=== PATIENT | female | born 1950 | race American Indian/Alaskan Native ===

== ENCOUNTER 2018-06-09 00:08 | Emergency (ER) | payer MEDICARE, BC, MEDICAID ==
[2018-06-09 00:31] VITALS: TEMP 98.1
--- NOTE | 2018-06-09 01:15 | ED PDOC ---
Arrival/HPI - General Chief Complaint: Back Pain Time Seen by Provider: 06/09/18 00:35 Historian: Patient - History of Present Illness Narrative History of Present Illness (Text): 06/09/18 00:45 67 year old female, whose past medical history includes CABG, 5 stents, ESRD on HD (Tuesday, , Tuesday), hypertension, hypothyroidism, diabetes, presents to the emergency department complaining of acute exacerbation of chronic back pain that began 1 year ago when she fell in her kitchen. Since then, she has intermittent episodes of right-sided/mid back pain. Patient reports the pain suddenly began 6 days ago and missed her last 3 dialysis treatments due to the severity of the pain. Patient has been using the fentanyl patches with relief but they have been giving her blurry vision and nausea. Patient went to [facility] twice for similar symptoms which they gave her pain medication in the ER, but discharged her with none. She had lab work done yesterday that shows her creatinine to be 8.6. Patient complaining of back pain and excessive thirst, but denies any fever, chills, chest pain, shortness of breath, vomiting, diarrhea, urinary symptoms, neck pain, headache, dizziness, or any other complaints. Time/Duration: Other (6 days) Symptom Course: Worsening Activities at Onset: Light Context: Home Past Medical History - Provider Review Nursing Documentation Reviewed: Yes - Infectious Disease Hx of Infectious Diseases: None - Cardiac Hx Cardiac Disorders: Yes Hx Hypertension: Yes Hx Pacemaker: Yes (x2) Other/Comment: triple Bypass. 5 stents - Pulmonary Hx Respiratory Disorders: No - Neurological Hx Neurological Disorder: No - HEENT Hx HEENT Disorder: No - Renal Hx Renal Disorder: Yes Hx Dialysis: Yes (T/TR/S) Type of Dialysis Access: rt arm shunt Date of Last Dialysis Treatment: 06/03/18 Hx Renal Failure: Yes (makes a little urine) - Endocrine/Metabolic Hx Endocrine Disorders: Yes Hx Diabetes Mellitus Type 2: Yes - Hematological/Oncological Hx Blood Disorders: No - Integumentary Hx Dermatological Disorder: No - Musculoskeletal/Rheumatological Hx Musculoskeletal Disorders: Yes Hx Back Pain: Yes - Gastrointestinal Hx Gastrointestinal Disorders: No - Genitourinary/Gynecological Hx Genitourinary Disorders: No - Psychiatric Hx Psychophysiologic Disorder: No Hx Substance Use: No - Surgical History Hx Coronary Artery Bypass Graft: Yes - Anesthesia Hx Anesthesia: Yes Hx Anesthesia Reactions: No Hx Malignant Hyperthermia: No Family/Social History - Physician Review Nursing Documentation Reviewed: Yes Family/Social History: No Known Family HX Smoking Status: Former Smoker Hx Alcohol Use: No Hx Substance Use: No Allergies/Home Meds Allergies/Adverse Reactions: Allergies Iodinated Contrast- Oral and IV Dye Allergy (Verified 06/09/18 00:23) RASH Penicillins Allergy (Verified 06/09/18 00:23) RASH Home Medications: Home Meds Medication Instructions Recorded Confirmed Amitriptyline HCl 10 mg PO BID 06/09/18 06/09/18 Cinacalcet [Sensipar] 30 mg PO DIN 06/09/18 06/09/18 Hydroxyzine HCl 25 mg PO Q8H PRN 06/09/18 06/09/18 Metoprolol Succinate 100 mg PO DAILY 06/09/18 06/09/18 Pregabalin [Lyrica] 50 mg PO BID 06/09/18 06/09/18 RX: Baclofen [Lioresal] 20 mg PO HS 06/09/18 06/09/18 RX: Fentanyl [Duragesic Patch] 25 mg TD Q72H 06/09/18 06/09/18 Rosuvastatin Calcium [Crestor] 20 mg PO HS 06/09/18 06/09/18 Sevelamer Carbonate [Renvela] 800 mg PO TID 06/09/18 06/09/18 Vit B Cplx #11/FA/C/Biot/Zn Ox 1 tab PO DAILY 06/09/18 06/09/18 [Dialyvite with Zinc Tablet] Review of Systems - Physician Review All systems were reviewed & negative as marked: Yes - Review of Systems Constitutional: absent: Fevers, Other (Chills) Respiratory: absent: SOB Cardiovascular: absent: Chest Pain Gastrointestinal: absent: Vomiting Genitourinary Female: absent: Dysuria, Frequency, Hematuria Musculoskeletal: Back Pain. absent: Neck Pain Neurological: absent: Headache, Dizziness Endocrine: Polydipsia Physical Exam Vital Signs Reviewed: Yes Vital Signs Temp Pulse Resp BP Pulse Ox 06/09/18 00:29 98.1 F 75 17 96/48 L 95 Temperature: Afebrile Blood Pressure: Hypotensive Pulse: Regular Respiratory Rate: Normal Appearance: Positive for: Well-Appearing, Non-Toxic, Comfortable Pain Distress: Moderate Mental Status: Positive for: Alert and Oriented X 3 - Systems Exam Head: Present: Atraumatic, Normocephalic Pupils: Present: PERRL Extroacular Muscles: Present: EOMI Conjunctiva: Present: Normal Mouth: Present: Moist Mucous Membranes Neck: Present: Normal Range of Motion Respiratory/Chest: Present: Clear to Auscultation, Good Air Exchange. No: Respiratory Distress, Accessory Muscle Use Cardiovascular: Present: Regular Rate and Rhythm, Normal S1, S2. No: Murmurs Abdomen: Present: Distention (slightly). No: Tenderness, Peritoneal Signs Back: Present: Other (significant tenderness to light touch. Pain out of proportion to ribs 6-12 right posteriorly wrapping around anteriorly. No visibal trauma or erythema) Upper Extremity: Present: Normal Inspection. No: Cyanosis, Edema Lower Extremity: Present: Edema (+1 pitting edema) Neurological: Present: GCS=15, CN II-XII Intact, Speech Normal Skin: Present: Warm, Dry, Normal Color. No: Rashes Psychiatric: Present: Alert, Oriented x 3, Normal Insight, Normal Concentration Medical Decision Making ED Course and Treatment: 06/09/18 00:04 Impression: 67 year old female presents complaining of worsening chronic intermittent right- sided/mid back pain that began 6 days ago. Plan: -- Fentanyl. Valium -- Reassess and disposition Progress Notes: Patient given IM fentanyl. On re-eval patient appears much more comfortable, however requesting more treatment. Valium PO given. On further re-eval patient sleeping comfortably. Patient and niece amenable to discharge home with Rx for valium. She will reschedule her pain management appointment, which she missed today due to her pain. She is due for dialysis Saturday 06/10 at 5am. Creatinine 8 per labs from [facility] yesterday (patient has paperwork with lab results with her), no need for emergent dialysis at this time. Attempt made to contact Dr. Diallo, patient's form setter supervisor, however after several calls, never received a call back. 06/09/18 03:45 On re-evaluation, patient is in no acute distress. I have discussed the plan with the patient, who expresses understanding. Patient in agreement with plan to be discharged home. Patient is stable for discharge. Patient was instructed to follow up with physician or return if symptoms worsen or new concerning symptoms arise. - Scribe Statement The provider has reviewed the documentation as recorded by the [facility] Provider Scribe Attestation: All medical record entries made by the Viraibbrendan were at my direction and p ersonally dictated by me. I have reviewed the chart and agree that the record accurately reflects my personal performance of the history, physical exam, medical decision making, and the department course for this patient. I have also personally directed, reviewed, and agree with the discharge instructions and disposition. Disposition/Present on Arrival - Present on Arrival Any Indicators Present on Arrival: No History of DVT/PE: No History of Uncontrolled Diabetes: No Urinary Catheter: No History of Decub. Ulcer: No History Surgical Site Infection Following: None - Disposition Have Diagnosis and Disposition been Completed?: Yes Diagnosis: Chronic back pain Disposition: HOME/ ROUTINE Disposition Time: 03:45 Condition: FAIR Discharge Instructions (ExitCare): Low Back Pain (DC) Additional Instructions: ANASTACIO ARMENTA, thank you for letting us take care of you today. Your provider was Nohelia Perdomo MD and you were treated for BACK PAIN. The emergency medical care you received today was directed at your acute symptoms. If you were prescribed any medication, please fill it and take as directed. It may take several days for your symptoms to resolve. Return to the Emergency Department if your symptoms worsen, do not improve, or if you have any other problems. Please contact your doctor or call one of the physicians/clinics you have been referred to that are listed on the Patient Visit Information form that is included in your discharge packet. Bring any paperwork you were given at discharge with you along with any medications you are taking to your follow up visit. Our treatment cannot replace ongoing medical care by a primary care provider outside of the emergency department. Thank you for allowing the [facility] team to be part of your care today. If you had an X-Ray or CT scan: A Radiologist will review the ED reading if any change in treatment is needed we will contact you. If you had a blood, urine, or wound culture: It will take several days for the results, if any change in treatment is needed we will contact you. If you had an STI test: It will take 48 hours for the results. Please call after 1 week if you have not heard back. Please keep appointment for dialysis tomorrow. Prescriptions: diaZEpam [Valium] 5 mg PO Q12H PRN #10 tab PRN Reason: Muscle Spasm Referrals: Olivia Ann MD [Primary Care Provider] - Follow up with primary Forms: [employer] (Hungarian)
[2018-06-09 04:33] VITALS: BP 108/68; PULSE 77; RESP 18; O2SAT 99
== END 2018-06-09 04:20 | disposition home or self-care (01) ==
LOC: ED 00:08
DX: G89.29 Other chronic pain (principal); M54.6 Pain in thoracic spine; E03.9 Hypothyroidism, unspecified; I12.0 Hypertensive chronic kidney disease with stage 5 chronic kidney disease or end stage renal disease; N18.6 End stage renal disease; Z99.2 Dependence on renal dialysis; Z87.891 Personal history of nicotine dependence; E11.9 Type 2 diabetes mellitus without complications
CPT/HCPCS: 96372; 99284; J3010

== ENCOUNTER 2018-06-10 22:36 | Inpatient (IN) | payer MEDICARE, BC, MEDICAID ==
[2018-06-10 22:42] VITALS: BMI 30.9
[2018-06-10] MEDS ORDERED: Lidocaine 5% Patch TD STA (23:16)
[2018-06-10] MEDS ORDERED: Vancomycin 1gm in NS 250ml 1 GM/250 ML BAG IVPB STA (23:19)
--- NOTE | 2018-06-10 23:28 | ED PDOC ---
Arrival/HPI <Mumtaz Tyson - Last Filed: 06/10/18 23:54> - General Historian: Patient - History of Present Illness Narrative History of Present Illness (Text): 06/10/18 23:02 67 year old female, whose past medical history includes CABG, 5 stents, ESRD on HD (, , Tue), hypertension, hypothyroidism, diabetes, presents to the emergency department complaining of missed dialysis and face swelling. Patient reports she has been thirsty more than usual and has been drinking more water. Patient is also complaining of chronic right-sided mid back pain with spasms, which is the reason why she kept missing dialysis. Patient was seen at [facility] on Tuesday for the back pain and missed dialysis, but blood work was normal and was discharged. Patient was seen in in [facility] on with her copy of blood work from her visit to [facility], it was noted to be stable, therefore the patient was treated with pain medication with no dialysis, and discharged home since she had a scheduled dialysis appointment on Tuesday at 5AM which she did not go to. Of note, patient is also c/o redness to her R breast, states that she struck her R breast on a piece of furniture a few days ago. Patient denies any fever, chills, chest pain, shortness of breath, nausea, vomiting, diarrhea, urinary symptoms, abdominal pain, neck pain, headache, dizziness, or any other complaints. PMD: Dr. Ann Health Service Worker: Dr. Diallo Symptom Onset: Gradual Symptom Course: Unchanged Activities at Onset: Light Context: Home <Ashley Lugo PA-C - Last Filed: 06/11/18 00:41> - General Chief Complaint: Dizziness/Lightheaded Time Seen by Provider: 06/10/18 22:44 Past Medical History - Provider Review Nursing Documentation Reviewed: Yes - Infectious Disease Hx of Infectious Diseases: None - Cardiac Hx Cardiac Disorders: Yes Hx Hypertension: Yes Hx Pacemaker: Yes (x2) Other/Comment: triple Bypass. 5 stents - Pulmonary Hx Respiratory Disorders: No - Neurological Hx Neurological Disorder: No - HEENT Hx HEENT Disorder: No - Renal Hx Renal Disorder: Yes Hx Dialysis: Yes (T/TR/S) Date of Last Dialysis Treatment: 06/03/18 Hx Renal Failure: Yes (makes a little urine) - Endocrine/Metabolic Hx Endocrine Disorders: Yes Hx Diabetes Mellitus Type 2: Yes - Hematological/Oncological Hx Blood Disorders: No - Integumentary Hx Dermatological Disorder: No - Musculoskeletal/Rheumatological Hx Musculoskeletal Disorders: Yes Hx Back Pain: Yes - Gastrointestinal Hx Gastrointestinal Disorders: No - Genitourinary/Gynecological Hx Genitourinary Disorders: No - Psychiatric Hx Psychophysiologic Disorder: No Hx Substance Use: No - Surgical History Hx Coronary Artery Bypass Graft: Yes - Anesthesia Hx Anesthesia: Yes Hx Anesthesia Reactions: No Hx Malignant Hyperthermia: No <Ashley Lugo PA-C - Last Filed: 06/11/18 00:41> Family/Social History - Physician Review Nursing Documentation Reviewed: Yes Family/Social History: No Known Family HX Smoking Status: Former Smoker Hx Alcohol Use: No Hx Substance Use: No <Ashley Lugo PA-C - Last Filed: 06/11/18 00:41> Allergies/Home Meds <Mumtaz Tyson - Last Filed: 06/10/18 23:54> <Ashley Lugo PA-C - Last Filed: 06/11/18 00:41> Allergies/Adverse Reactions: Allergies Iodinated Contrast- Oral and IV Dye Allergy (Verified 06/09/18 00:23) RASH Penicillins Allergy (Verified 06/09/18 00:23) RASH Home Medications: Home Meds Medication Instructions Recorded Confirmed Amitriptyline HCl 10 mg PO BID 06/09/18 06/09/18 Baclofen [Lioresal] 20 mg PO HS 06/09/18 06/09/18 Cinacalcet [Sensipar] 30 mg PO DIN 06/09/18 06/09/18 Fentanyl [Duragesic Patch] 25 mg TD Q72H 06/09/18 06/09/18 Hydroxyzine HCl 25 mg PO Q8H PRN 06/09/18 06/09/18 Metoprolol Succinate 100 mg PO DAILY 06/09/18 06/09/18 Pregabalin [Lyrica] 50 mg PO BID 06/09/18 06/09/18 Rosuvastatin Calcium [Crestor] 20 mg PO HS 06/09/18 06/09/18 Sevelamer Carbonate [Renvela] 800 mg PO TID 06/09/18 06/09/18 Vit B Cplx #11/FA/C/Biot/Zn Ox 1 tab PO DAILY 06/09/18 06/09/18 [Dialyvite with Zinc Tablet] Review of Systems - Physician Review All systems were reviewed & negative as marked: Yes - Review of Systems Constitutional: absent: Fevers, Other (Chills) Respiratory: absent: SOB Cardiovascular: absent: Chest Pain Gastrointestinal: absent: Diarrhea, Nausea, Vomiting Genitourinary Female: absent: Dysuria, Frequency, Hematuria Musculoskeletal: Back Pain, Other (face swelling). absent: Neck Pain Neurological: absent: Headache, Dizziness Endocrine: Polydipsia <Ashley Lugo PA-C - Last Filed: 06/11/18 00:41> Physical Exam Vital Signs Reviewed: Yes Appearance: Positive for: Well-Appearing, Non-Toxic, Comfortable Pain Distress: None Mental Status: Positive for: Alert and Oriented X 3 - Systems Exam Head: Present: Atraumatic, Normocephalic, Other (moderate edema to face) Pupils: Present: PERRL Extroacular Muscles: Present: EOMI Conjunctiva: Present: Normal Mouth: Present: Moist Mucous Membranes Neck: Present: Normal Range of Motion Respiratory/Chest: Present: Clear to Auscultation, Good Air Exchange. No: Respiratory Distress, Accessory Muscle Use Cardiovascular: Present: Regular Rate and Rhythm, Normal S1, S2. No: Murmurs Abdomen: No: Tenderness, Distention, Peritoneal Signs Breast/Axillary: Present: Erythema (+erythema to the R breast proximal to the nipple with induration without palpable mass or abscess). No: Axillary Lymphad, Discoloration, Fluctuance, Masses, Nipple Discharge, Swelling, Symmetrical, Tender to Palpation Back: Present: Normal Inspection Upper Extremity: Present: Normal Inspection. No: Cyanosis, Edema Lower Extremity: Present: Edema (non-pitting) Neurological: Present: GCS=15, CN II-XII Intact, Speech Normal Skin: Present: Warm, Dry, Normal Color. No: Rashes Psychiatric: Present: Alert, Oriented x 3, Normal Insight, Normal Concentration <Ashley Lugo PA-C - Last Filed: 06/11/18 00:41> Medical Decision Making - RAD Interpretation Radiology Orders: 06/10/18 23:15 CHEST PORTABLE [RAD] Stat - Medication Orders Current Medication Orders: Vancomycin HCl (Vancomycin 1gm) 1 gm in 250 mls @ 167 mls/hr IVPB STAT STA; Protocol Stop: 06/11/18 00:48 Last Admin: 06/10/18 23:37 Dose: 167 mls/hr eMAR Start Stop Document 06/10/18 23:37 EB (Rec: 06/10/18 23:39 EB [id number]) Intravenous Solution Start Date 06/10/18 Start Time 23:39 Discontinued Medications Diazepam (Valium) 5 mg PO ONCE ONE; Protocol Stop: 06/10/18 23:17 Last Admin: 06/10/18 23:27 Dose: 5 mg Lidocaine (Lidoderm) 1 ea TD STAT STA Stop: 06/10/18 23:17 Last Admin: 06/10/18 23:27 Dose: 1 ea MAR Transdermal Patch Site Document 06/10/18 23:27 EB (Rec: 06/10/18 23:27 EB [id number]) Transdermal Patch Site Transdermal Patch Site Right Lower Back <Mumtaz Tyson - Last Filed: 06/10/18 23:54> ED Course and Treatment: 06/10/18 23:00 Impression: 67 year old female presents complaining of missed dialysis since last week, facial swelling, chronic back pain, and excessive thirst. Plan: -- EKG -- Labs -- Chest X-ray -- Valium, Lidoderm, Vancomycin -- Blood Culture -- Reassess and disposition Prior Visits: Notes and results from previous visits were reviewed. Progress Notes: EKG : NSR at 80 bpm, with occasional PVC, RBBB. CXR : NAD. Labs reviewed : hgb is 9.3, bun 54, creat 10.7, Ca 7.7, Mg 3.1 On reevaluation, patient reports improvement of back pain and spasm. On exam, patient remains awake alert and oriented 3 in no acute distress. Diagnostic results d/w the patient. Patient states that she has a chronic anemia which is stable at 9 normally. Advised that she will need dialysis in the morning as she has missed 3 sessions, which she agrees to. Case d/w Dr. Simeon, who agree with plan to admit, with consult to Dr. Diallo, he request for CT chest w/o contrast to further evaluate breast cellulitis. residential coordinator Dr. Schuster notified and will evaluate the patient in the ER. - Lab Interpretations I have reviewed the lab results: Yes - RAD Interpretation Radiology Orders: 06/10/18 23:15 CHEST PORTABLE [RAD] Stat Water Quality Control Engineer: ED Physician - EKG Interpretation Interpreted by ED Physician: Yes Type: 12 lead EKG - Medication Orders Current Medication Orders: Vancomycin HCl (Vancomycin 1gm) 1 gm in 250 mls @ 167 mls/hr IVPB STAT STA; Protocol Stop: 06/11/18 00:48 Discontinued Medications Diazepam (Valium) 5 mg PO ONCE ONE; Protocol Stop: 06/10/18 23:17 Lidocaine (Lidoderm) 1 ea TD STAT STA Stop: 06/10/18 23:17 <Ashley Lugo PA-C - Last Filed: 06/11/18 00:41> - PA / GAS STATION CASHIER / Resident Statement ADDY has reviewed & agrees with the documentation as recorded. ADDY has examined the patient and agrees with the treatment plan. <Mumtaz Tyson - Last Filed: 06/10/18 23:54> - PA / GAS STATION CASHIER / Resident Statement ADDY has reviewed & agrees with the documentation as recorded. - Scribe Statement The provider has reviewed the documentation as recorded by the [facility] Provider Scribe Attestation: All medical record entries made by the [facility] were at my direction and personally dictated by me. I have reviewed the chart and agree that the record accurately reflects my personal performance of the history, physical exam, medical decision making, and the department course for this patient. I have also personally directed, reviewed, and agree with the discharge instructions and disposition. <Ashley Lugo PA-C - Last Filed: 06/11/18 00:41> Disposition/Present on Arrival <Mumtaz Tyson - Last Filed: 06/10/18 23:54> - Present on Arrival Any Indicators Present on Arrival: No History of DVT/PE: No History of Uncontrolled Diabetes: No Urinary Catheter: No History of Decub. Ulcer: No History Surgical Site Infection Following: None - Disposition Have Diagnosis and Disposition been Completed?: Yes Disposition Time: 00:15 Patient Plan: Admission <Ashley Lugo PA-C - Last Filed: 06/11/18 00:41> - Disposition Diagnosis: Missed dialysis, Cellulitis of right breast Disposition: HOSPITALIZED Patient Problems: Current Active Problems Problem Status Onset Cellulitis of right breast Acute Missed dialysis Acute Condition: STABLE
[2018-06-10 23:37] LABS: BASO # 0.03 K/mm3 (0.0-2.0); BASO % 0.5 % (0.0-3.0); EOS # 0.1 (0.0-0.7); EOS % 1.4 % (1.5-5.0); HEMOGLOBIN 9.3 g/dL (12.0-16.0); LYMPH # 0.8 (1.2-3.4); LYMPH % 12.1 % (22.0-35.0); MEAN CELL VOLUME 95.1 fl (80.0-105.0); MEAN CORPUSCULAR HEMOGLOBIN 30.1 pg (25.0-35.0); MEAN CORPUSCULAR HGB CONC 31.6 g/dl (31.0-37.0); MEAN PLATELET VOLUME 10.6 fl (7.0-11.0); MONO # 0.9 (0.1-0.6); MONO % 13.4 % (1.0-6.0); RBC 3.09 10^6/uL (3.5-6.1); RED CELL DISTRIBUTION WIDTH 17.4 % (11.5-14.5); WHITE BLOOD COUNT 6.6 10^3/uL (4.5-11.0)
[2018-06-11] LABS: ALBUMIN 4.1 g/dL (3.0-4.8); CALCIUM 7.7 mg/dL (8.4-10.5)
[2018-06-11] MEDS ORDERED: Vancomycin 1gm in NS 250ml 1 GM/250 ML BAG IVPB STA (02:17)
[2018-06-11] MEDS ORDERED: Morphine 2 mg/ml ISec IVP PRN (02:17)
[2018-06-11] MEDS ORDERED: Clindamycin 600mg/50ml D5W 600 MG/50 ML VIAL IVPB SCH (02:30)
--- NOTE | 2018-06-11 02:33 | CP.PCM.HP ---
History of Present Illness - History of Present Illness History of Present Illness: H&P for Dr. Blanco Schuster PGY2 Chief complaint: Lower back pain HPI: Patient is a 67 F with a past medical history of CAD s/p CABG and 5 stents, ESRD on HD (Tuesday, , Tuesday), hypertension, hypothyroidism, diabetes mellitus who presents with complaints of severe right sided lower back pain which began about a year ago when patient fell in her kitchen. Patient states she has tried several medications but has only had temporary relief, with pain coming back stronger when effect of pain medication wears off. Patient states the pain is sharp describing it as "something in her back that needs to be taken out." She rates the pain 10/10, with radiation to the right scapula, with pain exacerbation when moving around or simply touching the skin where the pain is located. States pain comes and goes but is more present than not. Patient was to establish care with a pain management physician this past week however was unable to make her appointment due to being sleepy due to valium patient was given for her back pain. To note patient also state she hit her right breast on a chair this past week and is now noticing swelling at the site. Patient goes to HD usually Tuesday, , and Tuesday however has been unable to go dialysis for the past week due to lower back pain and fatigue. Patient complaining of back pain and excessive thirst, but denies any fever, chills, chest pain, shortness of breath, vomiting, diarrhea, urinary symptoms, neck pain, headache, dizziness, or any other complaints. As per patient lidocaine patches cause her pain to worsen and fentanyl causes her to have blurry vision and nausea. PMD: Dr. Lobo Locomotive Operator: Dr. Diallo Allergies: Iodinated contrast-oral and IV dye, Penicillins Surgical Hx: CABG, stent placement Social Hx: denies tobacco, alcohol, or illicit drug use Present on Admission - Present on Admission Any Indicators Present on Admission: No Review of Systems - Review of Systems All systems: reviewed and no additional remarkable complaints except (as stated in HPI) Past Patient History - Infectious Disease Hx of Infectious Diseases: None - Past Social History Smoking Status: Former Smoker - CARDIAC Hx Cardiac Disorders: Yes Hx Hypertension: Yes Hx Pacemaker: Yes (x2) Other/Comment: triple Bypass. 5 stents - PULMONARY Hx Respiratory Disorders: No - NEUROLOGICAL Hx Neurological Disorder: No - HEENT Hx HEENT Problems: No - RENAL Date of Last Dialysis Treatment: 06/08/18 - ENDOCRINE/METABOLIC Hx Endocrine Disorders: Yes Hx Diabetes Mellitus Type 2: Yes (diet controlled) - HEMATOLOGICAL/ONCOLOGICAL Hx Blood Disorders: No - INTEGUMENTARY Hx Dermatological Problems: No - MUSCULOSKELETAL/RHEUMATOLOGICAL Hx Musculoskeletal Disorders: Yes Hx Back Pain: Yes Hx Falls: Yes Hx Unsteady Gait: Yes (walker) - GASTROINTESTINAL Hx Gastrointestinal Disorders: No - GENITOURINARY/GYNECOLOGICAL Hx Genitourinary Disorders: No - PSYCHIATRIC Hx Psychophysiologic Disorder: No Hx Substance Use: No - SURGICAL HISTORY Hx Surgeries: Yes (partial foot amputation, stent placement) Hx Coronary Stent: Yes (5) Other/Comment: right av shunt placement. tonsillectomy - ANESTHESIA Hx Anesthesia: Yes Hx Anesthesia Reactions: No Hx Malignant Hyperthermia: No Meds Allergies/Adverse Reactions: Allergies Allergy/AdvReac Type Severity Reaction Status Date / Time Iodinated Contrast- Oral and Allergy RASH Verified 06/09/18 00:23 IV Dye Penicillins Allergy RASH Verified 06/09/18 00:23 Physical Exam - Constitutional Appears: In Acute Distress (due to back pain) - Head Exam Head Exam: ATRAUMATIC, NORMAL INSPECTION, NORMOCEPHALIC - Eye Exam Eye Exam: Normal appearance - ENT Exam ENT Exam: Mucous Membranes Dry - Neck Exam Neck exam: Positive for: Normal Inspection - Respiratory Exam Respiratory Exam: Clear to Auscultation Bilateral, NORMAL BREATHING PATTERN. absent: Rhonchi, Wheezes - Cardiovascular Exam Cardiovascular Exam: REGULAR RHYTHM, +S1, +S2 - GI/Abdominal Exam GI & Abdominal Exam: Normal Bowel Sounds, Soft - Extremities Exam Extremities exam: Positive for: pedal edema Additional comments: left foot toe amputations (4th and 5th toes), right foot ingrown nails - Neurological Exam Neurological exam: Alert, Oriented x3 - Psychiatric Exam Psychiatric exam: Normal Affect, Normal Mood - Skin Skin Exam: Normal Color, Warm Additional comments: dark discolored scars on back Results - Vital Signs Recent Vital Signs: Last Vital Signs Temp Pulse 68 06/11/18 00:23 Resp 18 06/11/18 01:39 BP 100/52 L 06/11/18 00:23 Pulse Ox 97 06/11/18 00:23 - Labs Result Diagrams: 06/11/18 05:00 06/11/18 05:00 Labs: Laboratory Results - last 24 hr 06/10/18 06/10/18 22:45 22:45 WBC 6.6 RBC 3.09 L Hgb 9.3 L Hct 29.4 L MCV 95.1 MCH 30.1 MCHC 31.6 RDW 17.4 H Plt Count 135 MPV 10.6 Neut % (Auto) 72.6 H Lymph % (Auto) 12.1 L [place] % (Auto) 13.4 H Eos % (Auto) 1.4 L Baso % (Auto) 0.5 Lymph # (Auto) 0.8 L [place] # (Auto) 0.9 H Eos # (Auto) 0.1 Baso # (Auto) 0.03 Absolute Neuts (auto) 4.79 Sodium 140 Potassium 5.0 Chloride 100 Carbon Dioxide 26 Anion Gap 19 BUN 54 H Creatinine 10.7 H* Est GFR ( Amer) 4 Est GFR (Non-Af Amer) 4 Random Glucose 179 H Calcium 7.7 L Magnesium 3.1 H Total Bilirubin 1.9 H AST 42 H ALT 23 Alkaline Phosphatase 149 H Total Protein 8.2 Albumin 4.1 Globulin 4.1 Albumin/Globulin Ratio 1.0 L Assessment & Plan - Assessment and Plan (Free Text) Assessment: Patient is a 67 F with a past medical history of CAD s/p CABG and 5 stents, ESRD on HD (Tuesday, , Tuesday), hypertension, hypothyroidism, diabetes mellitus who presents with complaints of severe right sided lower back pain which began about a year ago when patient fell in her kitchen. Plan: Chronic lower back pain; acute exacerbation -MRI lumbar spine -CT lumbar spine shows no signs of decompression fractures, mild degenerative changes are seen -Morphine 1mg q6h -ESR and CRP ordered -Physical and occupational therapy Right breast cellulitis -CT chest/abdomen/pelvis ordered ;results pending -Vancomycin given -Clindamycin started -Blood cultures ESRD -Nephrology consulted -Replete electrolytes as needed -Continue with renagel Anemia -Vitamin B12 and folate -Iron and TIBC -Ferritin -Peripheral smear -Retic count Coronary Artery Disease -Cardiology consulted Hypothyroidism -Thryoid panel ordered Hyperlipidemia -Lipid panel ordered DM -HgA1C ordered -ISS-low -fingerstick ACHS Hx of Left toe amputations and Right foot ingrown toe nail -Podiatry consulted -Silvadene cream GI/DVT prophylaxis Protonix/Heparin
[2018-06-11 03:33] LABS: INR 1.49; PARTIAL THROMBOPLASTIN TIME 35.9 Seconds (26.9-38.3); PROTHROMBIN TIME 16.5 SECONDS (9.4-12.5)
[2018-06-11] MEDS: Pantoprazole 40 mg EC Tab PO SCH (05:24)
[2018-06-11 06:24] LABS: BASO # 0.04 K/mm3 (0.0-2.0); BASO % 0.8 % (0.0-3.0); EOS # 0.1 (0.0-0.7); EOS % 1.8 % (1.5-5.0); HEMOGLOBIN 8.7 g/dL (12.0-16.0); LYMPH # 0.7 (1.2-3.4); LYMPH % 14.5 % (22.0-35.0); MEAN CELL VOLUME 94.2 fl (80.0-105.0); MEAN CORPUSCULAR HEMOGLOBIN 29.6 pg (25.0-35.0); MEAN CORPUSCULAR HGB CONC 31.4 g/dl (31.0-37.0); MEAN PLATELET VOLUME 10.3 fl (7.0-11.0); MONO # 0.5 (0.1-0.6); MONO % 9.4 % (1.0-6.0); RBC 2.94 10^6/uL (3.5-6.1); RED CELL DISTRIBUTION WIDTH 17.3 % (11.5-14.5); WHITE BLOOD COUNT 5.1 10^3/uL (4.5-11.0)
[2018-06-11 06:36] LABS: IRON 47 ug/dL (45-180)
[2018-06-11 06:46] LABS: % IRON SATURATION 19 % (20-55); TOTAL IRON BINDING CAPACITY 252 ug/dL (265-497)
[2018-06-11 06:53] LABS: ALBUMIN 3.8 g/dL (3.0-4.8); CALCIUM 7.5 mg/dL (8.4-10.5); FREE T4 1.1 ng/dL (0.78-2.19); T4 4.6 ug/dL (5.5-11.0)
[2018-06-11 07:09] LABS: FREE T4 1.1 ng/dL (0.78-2.19)
--- NOTE | 2018-06-11 07:16 | CP.PCM.PN ---
Subjective - Date & Time of Evaluation Date of Evaluation: 06/11/18 Time of Evaluation: 07:14 - Subjective Subjective: PGY1 Note for House Doc S: - Paged about low blood pressure O: - SBP was noted to be 87 - Patient is asymptomatic at this time. A/P: - Will monitor patient. - Will not bolus at this time. Objective - Vital Signs/Intake and Output Vital Signs (last 24 hours): Temp Pulse Resp BP Pulse Ox 68 18 100/52 L 97 06/11/18 00:23 06/11/18 01:39 06/11/18 00:23 06/11/18 00:23 Intake and Output: 06/11/18 06/11/18 06:59 18:59 Intake Total 240 Balance 240 - Medications Medications: Current Medications Acetaminophen (Tylenol 325mg Tab) 650 mg PO Q6 PRN PRN Reason: TEMP>=99.5F Acetaminophen (Tylenol 650 Mg Supp) 650 mg RC Q6H PRN PRN Reason: TEMP>=99.5F Acetaminophen (Tylenol 650 Mg Supp) 650 mg RC Q6H PRN PRN Reason: Headache Acetaminophen (Tylenol 325mg Tab) 650 mg PO Q6 PRN PRN Reason: Headache Atorvastatin Calcium (Lipitor) 80 mg PO HS [facility] Baclofen (Lioresal) 20 mg PO HS [facility] Cinacalcet (Sensipar) 30 mg PO DIN [facility] Last Admin: 06/11/18 03:00 Dose: Not Given Diazepam (Valium) 5 mg PO Q12H PRN; Protocol PRN Reason: Muscle spasm Docusate Sodium (Colace) 100 mg PO TID [facility] Fentanyl (Duragesic) 0 patch TD Q72H [facility] Heparin Sodium (Porcine) (Heparin) 5,000 units SC Q8 [facility]; Protocol Last Admin: 06/11/18 05:25 Dose: 5,000 units Hydroxyzine HCl (Atarax) 25 mg PO Q8H PRN PRN Reason: Itching / Pruritus Clindamycin Phosphate (Cleocin) 600 mg in 50 mls @ 50 mls/hr IVPB Q8H [facility]; Protocol Last Admin: 06/11/18 02:44 Dose: 50 mls/hr Insulin Human Regular (Humulin R Low) 0 units SC ACHS [facility]; Protocol Metoprolol Succinate (Toprol Xl) 100 mg PO DAILY [facility] Morphine Sulfate (Morphine) 1 mg IVP Q6H PRN PRN Reason: Pain, severe (8-10) Ondansetron HCl (Zofran Inj) 4 mg IVP Q4H PRN PRN Reason: Nausea/Vomiting Pantoprazole Sodium (Protonix Ec Tab) 40 mg PO 0600 [facility] Last Admin: 06/11/18 05:24 Dose: 40 mg Pregabalin (Lyrica) 75 mg PO BID [facility] Last Admin: 06/11/18 03:00 Dose: Not Given Sevelamer HCl (Renagel) 800 mg PO TID [facility] Silver Sulfadiazine (Silvadene 1% 25 Gm) 1 gm TP DAILY [facility] Vitamin B Complex/Vit C/Folic Acid (Nephro-Jose Miguel) 1 tab PO DAILY [facility] - Labs Labs: 06/11/18 05:00 06/11/18 05:00 PT 16.5 SECONDS (9.4-12.5) H 06/11/18 02:55 INR 1.49 06/11/18 02:55 APTT 35.3 Seconds (26.9-38.3) 06/11/18 05:00
[2018-06-11] MEDS: Insulin Reg-LOW-Coverage SC SCH ×4 (08:51→21:24)
[2018-06-11] MEDS ORDERED: Metoprolol Succinate 100 mg XL Tab PO SCH (10:00)
[2018-06-11 10:29] LABS: TROPONIN I 0.07 ng/mL
[2018-06-11] MEDS ORDERED: Vancomycin 500mg in NS 500 MG/100 ML BAG IVPB STA (10:56)
[2018-06-11] MEDS: Multivitamin Vitamin B Complex (Nephro-Vite) Tab PO SCH (11:04)
--- NOTE | 2018-06-11 12:43 | RAD ---
Date of service: 06/10/2018 HISTORY: missed dialysis COMPARISON: No prior. FINDINGS: LUNGS: No evidence of focal infiltrate or consolidation in the lungs. PLEURA: No significant pleural effusion identified, no pneumothorax apparent. CARDIOVASCULAR: No aortic atherosclerotic calcification present. The cardiac silhouette is enlarged. Left-sided pacemaker is seen in place. The patient is status post sternotomy. No pulmonary vascular congestion. OSSEOUS STRUCTURES: No significant abnormalities. VISUALIZED UPPER ABDOMEN: Normal. OTHER FINDINGS: None. IMPRESSION: No evidence of focal infiltrate or consolidation in the lungs. Cardiomegaly.
[2018-06-11] MEDS ORDERED: Darbepoetin Alfa 60 mcg/ml Inj IVP ONE (12:57)
[2018-06-11 13:53] LABS: FOLATE > 20.0 ng/mL
--- NOTE | 2018-06-11 14:25 | CON ---
DATE: 06/11/2018 The patient seen earlier today. CHIEF COMPLAINT: Weakness and right breast pain times several days. HISTORY OF PRESENT ILLNESS: This is a 67-year-old female with obesity with a BMI of 31 with a history of coronary artery disease, end-stage renal disease on hemodialysis , hypothyroidism, diabetes mellitus, who is admitted to the emergency room because she missed dialysis and she also complaining of right-sided mid back pain and she is also complaining of right breast pain times several days. She denies any fevers, any chills, any nausea or vomiting. No abdominal pain, diarrhea, or constipation. No dysuria or frequency. No headaches. REVIEW OF SYSTEMS: Twelve-point review of systems is performed. PAST MEDICAL HISTORY: Significant for chronic renal failure on hemodialysis, coronary artery disease, hypothyroidism, diabetes mellitus, hyperlipidemia. PAST SURGICAL HISTORY: Significant for dialysis catheter, foot surgery and partial foot amputation, peripheral stent placement, coronary artery bypass graft. ALLERGIES: THE PATIENT IS ALLERGIC TO IODINATED CONTRAST AND PENICILLIN. THE TYPE OF ALLERGY ON THE PENICILLIN IS NOT CLEAR. SHE BELIEVES SHE HAD DIARRHEA. MEDICATIONS: Medications at home reveals the patient to be reviewed. PHYSICAL EXAMINATION: VITAL SIGNS: The patient has a temperature of 97, blood pressure is 100/50, respiratory rate of 19. HEENT: Examination of HEENT is unremarkable. NECK: Supple. LUNGS: Lungs have decreased breath sounds. HEART: Normal S1, S2. ABDOMEN: Soft, nontender. No rebound or guarding. BREASTS: Examination of right breast has induration on the outer lateral aspect of the right breast, outer lower quadrant laterally indurated, tender to touch. Mild erythema. LABORATORY DATA: Laboratory examination reveals a white count of 5.1, hemoglobin of 9, platelets of 135, sed rate is 38. Coagulation is noted. Chemistries reveals a BUN of 54, creatinine of 11. The patient had a CAT scan of the chest, abdomen, and pelvis, the results are not available. The patient had an EKG, the results are not available. Chest x-ray, the results are not available. ASSESSMENT AND PLAN: This is a 67-year-old female with obesity with a BMI of 31 with coronary artery disease, end-stage renal disease on hemodialysis, hypothyroidism, diabetes, and hyperlipidemia, now presenting with a right breast cellulitis. The patient was allergic to penicillin. We will give a dose of vancomycin and Azactam. Pending imaging and surgical evaluation for breast. Workup to rule out underlying breast malignancy and pending pancultures. The patient was given a dose of vancomycin yesterday. We will give another dose of vancomycin and start the patient on Azactam. Case discussed with PMD. Pending cultures and clinical response and may need a biopsy to rule out underlying malignancy. We will make further recommendations. Bill Whitt MD
--- NOTE | 2018-06-11 14:29 | CP.PCM.CON ---
<Guanaco Macias - Last Filed: 06/11/18 23:12> History of Present Illness - History of Present Illness History of Present Illness: Podiatry Consult Note - Dr. Polk 67 year old female patient PMHx CAD s/p CABG and 5 stents, ESRD on HD T//Tue, hypertension, hypothyroidism, diabetes mellitus seen and evaluated this AM for bilateral lower extremity wounds and right great toe pain. Patient states she accidentally struck her toe against a chair last week and since then has been complaining of dull, achy pain. Patient unaware of wound on top of her right great toe. Patient states she has had the wounds around her left ankle for a few months and follows up with an outside oil and gas superintendent regularly for wound care however has recently been unable to make her appointments due to worsening s evere lower back pain. Denies v/f/d/c/sob/toney/dizziness. Review of Systems - Review of Systems All systems: reviewed and no additional remarkable complaints except (as per HPI) Past Patient History - Infectious Disease Hx of Infectious Diseases: None - Past Social History Smoking Status: Former Smoker - CARDIAC Hx Cardiac Disorders: Yes Hx Hypertension: Yes Hx Pacemaker: Yes (x2) Other/Comment: triple Bypass. 5 stents - PULMONARY Hx Respiratory Disorders: No - NEUROLOGICAL Hx Neurological Disorder: No - HEENT Hx HEENT Problems: No - RENAL Date of Last Dialysis Treatment: 06/08/18 - ENDOCRINE/METABOLIC Hx Endocrine Disorders: Yes Hx Diabetes Mellitus Type 2: Yes (diet controlled) - HEMATOLOGICAL/ONCOLOGICAL Hx Blood Disorders: No - INTEGUMENTARY Hx Dermatological Problems: No - MUSCULOSKELETAL/RHEUMATOLOGICAL Hx Musculoskeletal Disorders: Yes Hx Back Pain: Yes Hx Falls: Yes Hx Unsteady Gait: Yes (walker) - GASTROINTESTINAL Hx Gastrointestinal Disorders: No - GENITOURINARY/GYNECOLOGICAL Hx Genitourinary Disorders: No - PSYCHIATRIC Hx Psychophysiologic Disorder: No Hx Substance Use: No - SURGICAL HISTORY Hx Surgeries: Yes (partial foot amputation, stent placement) Hx Coronary Stent: Yes (5) Other/Comment: right av shunt placement. tonsillectomy - ANESTHESIA Hx Anesthesia: Yes Hx Anesthesia Reactions: No Hx Malignant Hyperthermia: No Meds Allergies/Adverse Reactions: Allergies Allergy/AdvReac Type Severity Reaction Status Date / Time Iodinated Contrast- Oral and Allergy RASH Verified 06/09/18 00:23 IV Dye Penicillins Allergy RASH Verified 06/09/18 00:23 - Medications Medications: Current Medications Acetaminophen (Tylenol 325mg Tab) 650 mg PO Q6 PRN PRN Reason: TEMP>=99.5F Last Admin: 06/11/18 12:02 Dose: 650 mg Acetaminophen (Tylenol 650 Mg Supp) 650 mg RC Q6H PRN PRN Reason: TEMP>=99.5F Acetaminophen (Tylenol 650 Mg Supp) 650 mg RC Q6H PRN PRN Reason: Headache Acetaminophen (Tylenol 325mg Tab) 650 mg PO Q6 PRN PRN Reason: Headache Atorvastatin Calcium (Lipitor) 80 mg PO HS [facility] Baclofen (Lioresal) 20 mg PO HS [facility] Cinacalcet (Sensipar) 30 mg PO DIN [facility] Last Admin: 06/11/18 03:00 Dose: Not Given Diazepam (Valium) 5 mg PO Q12H PRN; Protocol PRN Reason: Muscle spasm Docusate Sodium (Colace) 100 mg PO TID [facility] Last Admin: 06/11/18 11:04 Dose: 100 mg Fentanyl (Duragesic) 0 patch TD Q72H [facility] Heparin Sodium (Porcine) (Heparin) 5,000 units SC Q8 [facility]; Protocol Last Admin: 06/11/18 05:25 Dose: 5,000 units Hydroxyzine HCl (Atarax) 25 mg PO Q8H PRN PRN Reason: Itching / Pruritus Aztreonam 500 mg/ Sodium (Chloride) 100 mls @ 100 mls/hr IVPB Q12H [facility]; Protocol Stop: 06/21/18 11:01 Last Admin: 06/11/18 11:29 Dose: 100 mls/hr Insulin Human Regular (Humulin R Low) 0 units SC ACHS [facility]; Protocol Last Admin: 06/11/18 08:51 Dose: Not Given Levothyroxine Sodium (Synthroid) 25 mcg PO 0600 [facility] Metronidazole (Flagyl) 500 mg PO Q8 [facility]; Protocol Stop: 06/18/18 14:01 Midodrine (Proamatine) 2.5 mg PO TID [facility] Last Admin: 06/11/18 11:04 Dose: 2.5 mg Morphine Sulfate (Morphine) 1 mg IVP Q6H PRN PRN Reason: Pain, severe (8-10) Ondansetron HCl (Zofran Inj) 4 mg IVP Q4H PRN PRN Reason: Nausea/Vomiting Pantoprazole Sodium (Protonix Ec Tab) 40 mg PO 0600 [facility] Last Admin: 06/11/18 05:24 Dose: 40 mg Pregabalin (Lyrica) 75 mg PO BID [facility] Last Admin: 06/11/18 11:04 Dose: 75 mg Sevelamer HCl (Renagel) 800 mg PO TID [facility] Last Admin: 06/11/18 11:04 Dose: 800 mg Silver Sulfadiazine (Silvadene 1% 25 Gm) 1 gm TP DAILY [facility] Vitamin B Complex/Vit C/Folic Acid (Nephro-Jose Miguel) 1 tab PO DAILY [facility] Last Admin: 06/11/18 11:04 Dose: 1 tab Physical Exam - Constitutional Appears: Non-toxic, No Acute Distress - Extremities Exam Additional comments: VASC: DP and PT pulses nonpalpable. CFT <3 seconds to digits. Temperature gradient cool to cool. +1 pitting edema present b/l. NEURO: Light touch and protective sensation absent bilaterally. DERM: RLE=Partial thickness wound noted to dorsum of right hallux measuring approximately 0.5 x 0.5 x 0.1 cm 0 ulcer noted to have a mixed fibrogranular base and hyperkeratosis periwound; no drainage; no purulence; no fluctuance; no undermining; no tunneling; no ascending cellulitis; no malodor. LLE=Partial thickness ulcerations noted to anteromedial ankle joint; wounds n oted to have a mixed fibrogranular base and hyperkeratosis periwound; no periwound erythema; no purulence; no drainage; no fluctuance; no malodor. ORTHO: Pain on palpation distal tuft of right hallux. Pain upon right hallucal IPJ and 1st MPJ ROM. No pain on palpation to LLE wounds. 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 - Neurological Exam Neurological exam: Alert, Oriented x3 - Psychiatric Exam Psychiatric exam: Normal Affect, Normal Mood Results - Vital Signs Recent Vital Signs: Last Vital Signs Temp 97.4 F L 06/11/18 07:42 Pulse 74 06/11/18 07:42 Resp 18 06/11/18 07:42 BP 88/49 L 06/11/18 07:42 Pulse Ox 97 06/11/18 07:42 - Labs Result Diagrams: 06/11/18 05:00 06/11/18 05:00 Labs: Laboratory Results - last 24 hr 06/10/18 06/10/18 06/11/18 22:45 22:45 02:55 WBC 6.6 RBC 3.09 L Hgb 9.3 L Hct 29.4 L MCV 95.1 MCH 30.1 MCHC 31.6 RDW 17.4 H Plt Count 135 MPV 10.6 Neut % (Auto) 72.6 H Lymph % (Auto) 12.1 L Gilliam % (Auto) 13.4 H Eos % (Auto) 1.4 L Baso % (Auto) 0.5 Lymph # (Auto) 0.8 L Gilliam # (Auto) 0.9 H Eos # (Auto) 0.1 Baso # (Auto) 0.03 Absolute Neuts (auto) 4.79 ESR Retic Count PT 16.5 H INR 1.49 APTT 35.9 Sodium 140 Potassium 5.0 Chloride 100 Carbon Dioxide 26 Anion Gap 19 BUN 54 H Creatinine 10.7 H* Est GFR ( Amer) 4 Est GFR (Non-Af Amer) 4 POC Glucose (mg/dL) Random Glucose 179 H Hemoglobin A1c Calcium 7.7 L Phosphorus Magnesium 3.1 H Iron TIBC % Saturation Ferritin Total Bilirubin 1.9 H AST 42 H ALT 23 Alkaline Phosphatase 149 H Total Creatine Kinase Troponin I C-React Prot High Sens Total Protein 8.2 Albumin 4.1 Globulin 4.1 Albumin/Globulin Ratio 1.0 L Triglycerides Cholesterol LDL Cholesterol Direct HDL Cholesterol Vitamin B12 25-OH Vitamin D Total Folate Procalcitonin Free T4 Thyroxine (T4) TSH 3rd Generation Blood Type Blood Type Confirm Antibody Screen Crossmatch BBK History Checked 06/11/18 06/11/18 06/11/18 05:00 05:00 05:00 WBC RBC Hgb Hct MCV MCH MCHC RDW Plt Count MPV Neut % (Auto) Lymph % (Auto) Gilliam % (Auto) Eos % (Auto) Baso % (Auto) Lymph # (Auto) Gilliam # (Auto) Eos # (Auto) Baso # (Auto) Absolute Neuts (auto) ESR Retic Count PT INR APTT 35.3 Sodium Potassium Chloride Carbon Dioxide Anion Gap BUN Creatinine Est GFR ( Amer) Est GFR (Non-Af Amer) POC Glucose (mg/dL) Random Glucose Hemoglobin A1c 6.1 Calcium Phosphorus Magnesium Iron TIBC % Saturation Ferritin Total Bilirubin AST ALT Alkaline Phosphatase Total Creatine Kinase Troponin I C-React Prot High Sens > 15.00 H Total Protein Albumin Globulin Albumin/Globulin Ratio Triglycerides Cholesterol LDL Cholesterol Direct HDL Cholesterol Vitamin B12 25-OH Vitamin D Total Folate Procalcitonin Free T4 Thyroxine (T4) TSH 3rd Generation Blood Type Blood Type Confirm Antibody Screen Crossmatch BBK History Checked 06/11/18 06/11/18 06/11/18 05:00 05:00 05:00 WBC 5.1 D RBC 2.94 L Hgb 8.7 L Hct 27.7 L MCV 94.2 MCH 29.6 MCHC 31.4 RDW 17.3 H Plt Count 119 L MPV 10.3 Neut % (Auto) 73.5 H Lymph % (Auto) 14.5 L Gilliam % (Auto) 9.4 H Eos % (Auto) 1.8 Baso % (Auto) 0.8 Lymph # (Auto) 0.7 L Gilliam # (Auto) 0.5 Eos # (Auto) 0.1 Baso # (Auto) 0.04 Absolute Neuts (auto) 3.76 ESR 38 H Retic Count PT INR APTT Sodium 141 Potassium 4.4 Chloride 100 Carbon Dioxide 26 Anion Gap 18 BUN 54 H Creatinine 11.1 H* Est GFR ( Amer) 4 Est GFR (Non-Af Amer) 3 POC Glucose (mg/dL) Random Glucose 127 H Hemoglobin A1c Calcium 7.5 L Phosphorus 4.0 Magnesium 3.1 H Iron TIBC % Saturation Ferritin Total Bilirubin 1.7 H AST 32 ALT 23 Alkaline Phosphatase 136 H Total Creatine Kinase Troponin I C-React Prot High Sens Total Protein 7.6 Albumin 3.8 Globulin 3.8 Albumin/Globulin Ratio 1.0 L Triglycerides 51 Cholesterol 92 L LDL Cholesterol Direct 41 HDL Cholesterol 38 Vitamin B12 25-OH Vitamin D Total Folate Procalcitonin Free T4 1.10 Thyroxine (T4) TSH 3rd Generation 8.58 H Blood Type Blood Type Confirm Antibody Screen Crossmatch BBK History Checked 06/11/18 06/11/18 06/11/18 05:00 05:00 05:00 WBC RBC Hgb Hct MCV MCH MCHC RDW Plt Count MPV Neut % (Auto) Lymph % (Auto) Gilliam % (Auto) Eos % (Auto) Baso % (Auto) Lymph # (Auto) Gilliam # (Auto) Eos # (Auto) Baso # (Auto) Absolute Neuts (auto) ESR Retic Count PT INR APTT Sodium Potassium Chloride Carbon Dioxide Anion Gap BUN Creatinine Est GFR ( Amer) Est GFR (Non-Af Amer) POC Glucose (mg/dL) Random Glucose Hemoglobin A1c Calcium Phosphorus Magnesium Iron 47 TIBC 252 L % Saturation 19 L Ferritin 315.0 Total Bilirubin AST ALT Alkaline Phosphatase Total Creatine Kinase Troponin I C-React Prot High Sens Total Protein Albumin Globulin Albumin/Globulin Ratio Triglycerides Cholesterol LDL Cholesterol Direct HDL Cholesterol Vitamin B12 719 25-OH Vitamin D Total 23.6 L Folate > 20.0 Procalcitonin Free T4 Thyroxine (T4) TSH 3rd Generation Blood Type Blood Type Confirm Antibody Screen Crossmatch BBK History Checked 06/11/18 06/11/18 06/11/18 05:00 05:00 07:04 WBC RBC Hgb Hct MCV MCH MCHC RDW Plt Count MPV Neut % (Auto) Lymph % (Auto) Gilliam % (Auto) Eos % (Auto) Baso % (Auto) Lymph # (Auto) Gilliam # (Auto) Eos # (Auto) Baso # (Auto) Absolute Neuts (auto) ESR Retic Count PT INR APTT Sodium Potassium Chloride Carbon Dioxide Anion Gap BUN Creatinine Est GFR ( Amer) Est GFR (Non-Af Amer) POC Glucose (mg/dL) 117 H Random Glucose Hemoglobin A1c Calcium Phosphorus Magnesium Iron TIBC % Saturation Ferritin Total Bilirubin AST ALT Alkaline Phosphatase Total Creatine Kinase Troponin I C-React Prot High Sens Total Protein Albumin Globulin Albumin/Globulin Ratio Triglycerides Cholesterol LDL Cholesterol Direct HDL Cholesterol Vitamin B12 25-OH Vitamin D Total Folate Procalcitonin 0.30 Free T4 1.10 Thyroxine (T4) 4.6 L TSH 3rd Generation Blood Type Blood Type Confirm Antibody Screen Crossmatch BBK History Checked 06/11/18 06/11/18 06/11/18 07:11 10:00 10:00 WBC RBC Hgb Hct MCV MCH MCHC RDW Plt Count MPV Neut % (Auto) Lymph % (Auto) Gilliam % (Auto) Eos % (Auto) Baso % (Auto) Lymph # (Auto) Gilliam # (Auto) Eos # (Auto) Baso # (Auto) Absolute Neuts (auto) ESR Retic Count 1.74 H PT INR APTT Sodium Potassium Chloride Carbon Dioxide Anion Gap BUN Creatinine Est GFR ( Amer) Est GFR (Non-Af Amer) POC Glucose (mg/dL) Random Glucose Hemoglobin A1c Calcium Phosphorus Magnesium Iron TIBC % Saturation Ferritin Total Bilirubin AST ALT Alkaline Phosphatase Total Creatine Kinase 115 Troponin I 0.07 C-React Prot High Sens Total Protein Albumin Globulin Albumin/Globulin Ratio Triglycerides Cholesterol LDL Cholesterol Direct HDL Cholesterol Vitamin B12 25-OH Vitamin D Total Folate Procalcitonin Free T4 Thyroxine (T4) TSH 3rd Generation Blood Type AB POSITIVE Blood Type Confirm Antibody Screen Negative Crossmatch See Detail BBK History Checked No verified bt 06/11/18 06/11/18 11:00 11:11 WBC RBC Hgb Hct MCV MCH MCHC RDW Plt Count MPV Neut % (Auto) Lymph % (Auto) Gilliam % (Auto) Eos % (Auto) Baso % (Auto) Lymph # (Auto) Gilliam # (Auto) Eos # (Auto) Baso # (Auto) Absolute Neuts (auto) ESR Retic Count PT INR APTT Sodium Potassium Chloride Carbon Dioxide Anion Gap BUN Creatinine Est GFR ( Amer) Est GFR (Non-Af Amer) POC Glucose (mg/dL) 191 H Random Glucose Hemoglobin A1c Calcium Phosphorus Magnesium Iron TIBC % Saturation Ferritin Total Bilirubin AST ALT Alkaline Phosphatase Total Creatine Kinase Troponin I C-React Prot High Sens Total Protein Albumin Globulin Albumin/Globulin Ratio Triglycerides Cholesterol LDL Cholesterol Direct HDL Cholesterol Vitamin B12 25-OH Vitamin D Total Folate Procalcitonin Free T4 Thyroxine (T4) TSH 3rd Generation Blood Type Blood Type Confirm AB POSITIVE Antibody Screen Crossmatch BBK History Checked Assessment & Plan - Assessment and Plan (Free Text) Assessment: 67F PMHx CAD s/p CABG and 5 stents, ESRD on HD (Tuesday, , Tuesday), hypertension, hypothyroidism, diabetes mellitus with 1) bilateral lower extremity wounds, stable 2) right hallux pain Plan: Patient seen and evaluated Discussed with attending, Dr. Polk Afebrile, WBC 5.1 Right foot XR ordered, f/u Wounds cleansed with saline and dressed with optifoam b/l Pain control per medicine PT/OT consulted Podiatry will continue to follow <Zuleika Polk - Last Filed: 06/12/18 08:00> Meds - Medications Medications: Current Medications Acetaminophen (Tylenol 325mg Tab) 650 mg PO Q6 PRN PRN Reason: TEMP>=99.5F Last Admin: 06/11/18 12:02 Dose: 650 mg Acetaminophen (Tylenol 650 Mg Supp) 650 mg RC Q6H PRN PRN Reason: TEMP>=99.5F Acetaminophen (Tylenol 650 Mg Supp) 650 mg RC Q6H PRN PRN Reason: Headache Acetaminophen (Tylenol 325mg Tab) 650 mg PO Q6 PRN PRN Reason: Headache Last Admin: 06/12/18 00:58 Dose: 650 mg Atorvastatin Calcium (Lipitor) 80 mg PO HS [facility] Last Admin: 06/11/18 21:25 Dose: 80 mg Baclofen (Lioresal) 20 mg PO HS [facility] Last Admin: 06/11/18 21:25 Dose: 20 mg Cinacalcet (Sensipar) 30 mg PO DIN [facility] Last Admin: 06/11/18 19:43 Dose: Not Given Diazepam (Valium) 2 mg PO Q12H PRN; Protocol PRN Reason: Muscle spasm Docusate Sodium (Colace) 100 mg PO TID [facility] Last Admin: 06/11/18 19:41 Dose: Not Given Fentanyl (Duragesic) 0 patch TD Q72H [facility] Heparin Sodium (Porcine) (Heparin) 5,000 units SC Q8 [facility]; Protocol Last Admin: 06/12/18 05:39 Dose: 5,000 units Hydroxyzine HCl (Atarax) 25 mg PO Q8H PRN PRN Reason: Itching / Pruritus Aztreonam 500 mg/ Sodium (Chloride) 100 mls @ 100 mls/hr IVPB Q12H [facility]; Protocol Stop: 06/21/18 11:01 Last Admin: 06/11/18 22:15 Dose: 100 mls/hr Sodium Chloride (Sodium Chloride 0.9%) 500 mls @ 999 mls/hr IV .Q31M [facility] Stop: 06/12/18 08:07 Sodium Chloride (Sodium Chloride 0.9%) 1,000 mls @ 999 mls/hr IV .Q1H1M STA Stop: 06/12/18 08:58 Insulin Human Regular (Humulin R Low) 0 units SC ACHS [facility]; Protocol Last Admin: 06/11/18 21:24 Dose: Not Given Levothyroxine Sodium (Synthroid) 25 mcg PO 0600 [facility] Last Admin: 06/12/18 05:39 Dose: 25 mcg Metronidazole (Flagyl) 500 mg PO Q8 [facility]; Protocol Stop: 06/18/18 14:01 Last Admin: 06/12/18 05:39 Dose: 500 mg Midodrine (Proamatine) 2.5 mg PO TID [facility] Last Admin: 06/12/18 07:40 Dose: 2.5 mg Morphine Sulfate (Morphine) 1 mg IVP Q6H PRN PRN Reason: Pain, severe (8-10) Last Admin: 06/11/18 21:22 Dose: 1 mg Ondansetron HCl (Zofran Inj) 4 mg IVP Q4H PRN PRN Reason: Nausea/Vomiting Pantoprazole Sodium (Protonix Ec Tab) 40 mg PO 0600 [facility] Last Admin: 06/12/18 05:40 Dose: 40 mg Pregabalin (Lyrica) 75 mg PO BID [facility] Last Admin: 06/11/18 19:42 Dose: Not Given Sennosides (Senokot Tab) 17.2 mg PO HS [facility] Last Admin: 06/11/18 21:25 Dose: 17.2 mg Sevelamer HCl (Renagel) 800 mg PO TID [facility] Last Admin: 06/11/18 19:42 Dose: Not Given Silver Sulfadiazine (Silvadene 1% 25 Gm) 1 gm TP DAILY [facility] Vitamin B Complex/Vit C/Folic Acid (Nephro-Jose Miguel) 1 tab PO DAILY [facility] Last Admin: 06/11/18 11:04 Dose: 1 tab Results - Vital Signs Recent Vital Signs: Last Vital Signs Temp 97.2 F L 06/11/18 19:20 Pulse 72 06/12/18 05:27 Resp 18 06/11/18 19:20 BP 94/48 L 06/11/18 19:20 Pulse Ox 95 06/11/18 19:20 - Labs Result Diagrams: 06/12/18 06:00 06/12/18 06:00 Labs: Laboratory Results - last 24 hr 06/11/18 06/11/18 06/11/18 05:00 05:00 05:00 WBC RBC Hgb Hct MCV MCH MCHC RDW Plt Count MPV Neut % (Auto) Lymph % (Auto) Gilliam % (Auto) Eos % (Auto) Baso % (Auto) Lymph # (Auto) Gilliam # (Auto) Eos # (Auto) Baso # (Auto) Absolute Neuts (auto) Differential Comment ESR 38 H Retic Count Sodium Potassium Chloride Carbon Dioxide Anion Gap BUN Creatinine Est GFR ( Amer) Est GFR (Non-Af Amer) POC Glucose (mg/dL) Random Glucose Hemoglobin A1c 6.1 Calcium Phosphorus Magnesium Ferritin Total Bilirubin Direct Bilirubin AST ALT Alkaline Phosphatase Total Creatine Kinase Troponin I C-React Prot High Sens > 15.00 H Total Protein Albumin Globulin Albumin/Globulin Ratio Vitamin B12 25-OH Vitamin D Total Folate Procalcitonin Hep B Core IgM Ab Blood Type Blood Type Confirm Antibody Screen Crossmatch Clerical Work Check Pre-Trans Blood Type Pre-Trans Vis Hemolysis Post-Trans Blood Type Post-Tx Visible Hemolys Post-Trans FERCHO Poly BBK History Checked 06/11/18 06/11/18 06/11/18 05:00 05:00 05:00 WBC RBC Hgb Hct MCV MCH MCHC RDW Plt Count MPV Neut % (Auto) Lymph % (Auto) Gilliam % (Auto) Eos % (Auto) Baso % (Auto) Lymph # (Auto) Gilliam # (Auto) Eos # (Auto) Baso # (Auto) Absolute Neuts (auto) Differential Comment ESR Retic Count Sodium Potassium Chloride Carbon Dioxide Anion Gap BUN Creatinine Est GFR ( Amer) Est GFR (Non-Af Amer) POC Glucose (mg/dL) Random Glucose Hemoglobin A1c Calcium Phosphorus Magnesium Ferritin 315.0 Total Bilirubin Direct Bilirubin AST ALT Alkaline Phosphatase Total Creatine Kinase Troponin I C-React Prot High Sens Total Protein Albumin Globulin Albumin/Globulin Ratio Vitamin B12 719 25-OH Vitamin D Total 23.6 L Folate > 20.0 Procalcitonin 0.30 Hep B Core IgM Ab Blood Type Blood Type Confirm Antibody Screen Crossmatch Clerical Work Check Pre-Trans Blood Type Pre-Trans Vis Hemolysis Post-Trans Blood Type Post-Tx Visible Hemolys Post-Trans FERCHO Poly BBK History Checked 06/11/18 06/11/18 06/11/18 07:11 10:00 10:00 WBC RBC Hgb Hct MCV MCH MCHC RDW Plt Count MPV Neut % (Auto) Lymph % (Auto) Gilliam % (Auto) Eos % (Auto) Baso % (Auto) Lymph # (Auto) Gilliam # (Auto) Eos # (Auto) Baso # (Auto) Absolute Neuts (auto) Differential Comment See pathology report ESR Retic Count 1.74 H Sodium Potassium Chloride Carbon Dioxide Anion Gap BUN Creatinine Est GFR ( Amer) Est GFR (Non-Af Amer) POC Glucose (mg/dL) Random Glucose Hemoglobin A1c Calcium Phosphorus Magnesium Ferritin Total Bilirubin Direct Bilirubin AST ALT Alkaline Phosphatase Total Creatine Kinase 115 Troponin I 0.07 C-React Prot High Sens Total Protein Albumin Globulin Albumin/Globulin Ratio Vitamin B12 25-OH Vitamin D Total Folate Procalcitonin Hep B Core IgM Ab Blood Type AB POSITIVE Blood Type Confirm Antibody Screen Negative Crossmatch See Detail Clerical Work Check Pre-Trans Blood Type Pre-Trans Vis Hemolysis Post-Trans Blood Type Post-Tx Visible Hemolys Post-Trans FERCHO Poly BBK History Checked No verified bt 06/11/18 06/11/18 06/11/18 11:00 11:11 15:44 WBC RBC Hgb Hct MCV MCH MCHC RDW Plt Count MPV Neut % (Auto) Lymph % (Auto) Gilliam % (Auto) Eos % (Auto) Baso % (Auto) Lymph # (Auto) Gilliam # (Auto) Eos # (Auto) Baso # (Auto) Absolute Neuts (auto) Differential Comment ESR Retic Count Sodium Potassium Chloride Carbon Dioxide Anion Gap BUN Creatinine Est GFR ( Amer) Est GFR (Non-Af Amer) POC Glucose (mg/dL) 191 H Random Glucose Hemoglobin A1c Calcium Phosphorus Magnesium Ferritin Total Bilirubin Direct Bilirubin AST ALT Alkaline Phosphatase Total Creatine Kinase Troponin I C-React Prot High Sens Total Protein Albumin Globulin Albumin/Globulin Ratio Vitamin B12 25-OH Vitamin D Total Folate Procalcitonin Hep B Core IgM Ab Negative Blood Type Blood Type Confirm AB POSITIVE Antibody Screen Crossmatch Clerical Work Check Pre-Trans Blood Type Pre-Trans Vis Hemolysis Post-Trans Blood Type Post-Tx Visible Hemolys Post-Trans FERCHO Poly BBK History Checked 06/11/18 06/11/18 06/12/18 17:00 21:21 06:00 WBC 5.3 RBC 2.91 L Hgb 8.7 L Hct 27.3 L MCV 93.8 MCH 29.9 MCHC 31.9 RDW 17.5 H Plt Count 80 L MPV 10.6 Neut % (Auto) 73.2 H Lymph % (Auto) 15.0 L Gilliam % (Auto) 10.5 H Eos % (Auto) 1.1 L Baso % (Auto) 0.2 Lymph # (Auto) 0.8 L Gilliam # (Auto) 0.6 Eos # (Auto) 0.1 Baso # (Auto) 0.01 Absolute Neuts (auto) 3.84 Differential Comment ESR Retic Count Sodium Potassium Chloride Carbon Dioxide Anion Gap BUN Creatinine Est GFR ( Amer) Est GFR (Non-Af Amer) POC Glucose (mg/dL) 198 H Random Glucose Hemoglobin A1c Calcium Phosphorus Magnesium Ferritin Total Bilirubin Direct Bilirubin AST ALT Alkaline Phosphatase Total Creatine Kinase Troponin I C-React Prot High Sens Total Protein Albumin Globulin Albumin/Globulin Ratio Vitamin B12 25-OH Vitamin D Total Folate Procalcitonin Hep B Core IgM Ab Blood Type Blood Type Confirm Antibody Screen Crossmatch Clerical Work Check No discrepancy Pre-Trans Blood Type AB POSITIVE Pre-Trans Vis Hemolysis No hemolysis Post-Trans Blood Type AB POSITIVE Post-Tx Visible Hemolys No hemolysis Post-Trans FERCHO Poly Negative BBK History Checked 06/12/18 06/12/18 06:00 07:07 WBC RBC Hgb Hct MCV MCH MCHC RDW Plt Count MPV Neut % (Auto) Lymph % (Auto) Gilliam % (Auto) Eos % (Auto) Baso % (Auto) Lymph # (Auto) Gilliam # (Auto) Eos # (Auto) Baso # (Auto) Absolute Neuts (auto) Differential Comment ESR Retic Count Sodium 138 Potassium 4.8 Chloride 101 Carbon Dioxide 29 Anion Gap 14 BUN 41 H Creatinine 9.5 H* Est GFR ( Amer) 5 Est GFR (Non-Af Amer) 4 POC Glucose (mg/dL) 135 H Random Glucose 129 H Hemoglobin A1c Calcium 7.9 L Phosphorus 3.8 Magnesium 2.9 H Ferritin Total Bilirubin 1.5 H Direct Bilirubin 1.2 H AST 31 ALT 25 Alkaline Phosphatase 128 H Total Creatine Kinase Troponin I C-React Prot High Sens Total Protein 7.1 Albumin 3.5 Globulin 3.6 Albumin/Globulin Ratio 1.0 L Vitamin B12 25-OH Vitamin D Total Folate Procalcitonin Hep B Core IgM Ab Blood Type Blood Type Confirm Antibody Screen Crossmatch Clerical Work Check Pre-Trans Blood Type Pre-Trans Vis Hemolysis Post-Trans Blood Type Post-Tx Visible Hemolys Post-Trans FERCHO Poly BBK History Checked Attending/Attestation - Attestation I have personally seen and examined this patient.: No I have fully participated in the care of the patient.: No I have reviewed all pertinent clinical information: No
--- NOTE | 2018-06-11 16:59 | CP.PCM.CON ---
History of Present Illness - History of Present Illness History of Present Illness: renal consult note 67 F with a past medical history of CAD s/p CABG and 5 stents, ESRD on HD (Tuesday, , Tuesday), hypertension, hypothyroidism, diabetes mellitus who presents with complaints of severe right sided lower back pain which worsened over last week has missed hd since last 1 week because of that Allergies: Iodinated contrast-oral and IV dye, Penicillins Surgical Hx: CABG, stent placement Social Hx: denies tobacco, alcohol, or illicit drug use meds reviewed complete ros is negative meds reviewed vitals reviewed heent normal op moist no jvd appears tired no resp distress s1s2 present abd soft skin normal ao times 3 normal affect cooperative labs reviewed esrd/hypotension/anemia/sec hyperpth/chronic back pain hd tts as opt but missed since last 1 week lytes reviewed no abnormalities anemia epo with hd and transfuse per primary team will dialyse her today consent taken monitor phos level ok to use midodrine can check cortisol levels for hypotension pain control per primary team Past Patient History - Infectious Disease Hx of Infectious Diseases: None - Past Social History Smoking Status: Former Smoker - CARDIAC Hx Cardiac Disorders: Yes Hx Hypertension: Yes Hx Pacemaker: Yes (x2) Other/Comment: triple Bypass. 5 stents - PULMONARY Hx Respiratory Disorders: No - NEUROLOGICAL Hx Neurological Disorder: No - HEENT Hx HEENT Problems: No - RENAL Date of Last Dialysis Treatment: 06/08/18 - ENDOCRINE/METABOLIC Hx Endocrine Disorders: Yes Hx Diabetes Mellitus Type 2: Yes (diet controlled) - HEMATOLOGICAL/ONCOLOGICAL Hx Blood Disorders: No - INTEGUMENTARY Hx Dermatological Problems: No - MUSCULOSKELETAL/RHEUMATOLOGICAL Hx Musculoskeletal Disorders: Yes Hx Back Pain: Yes Hx Falls: Yes Hx Unsteady Gait: Yes (walker) - GASTROINTESTINAL Hx Gastrointestinal Disorders: No - GENITOURINARY/GYNECOLOGICAL Hx Genitourinary Disorders: No - PSYCHIATRIC Hx Psychophysiologic Disorder: No Hx Substance Use: No - SURGICAL HISTORY Hx Surgeries: Yes (partial foot amputation, stent placement) Hx Coronary Stent: Yes (5) Other/Comment: right av shunt placement. tonsillectomy - ANESTHESIA Hx Anesthesia: Yes Hx Anesthesia Reactions: No Hx Malignant Hyperthermia: No Meds Allergies/Adverse Reactions: Allergies Allergy/AdvReac Type Severity Reaction Status Date / Time Iodinated Contrast- Oral and Allergy RASH Verified 06/09/18 00:23 IV Dye Penicillins Allergy RASH Verified 06/09/18 00:23 - Medications Medications: Current Medications Acetaminophen (Tylenol 325mg Tab) 650 mg PO Q6 PRN PRN Reason: TEMP>=99.5F Last Admin: 06/11/18 12:02 Dose: 650 mg Acetaminophen (Tylenol 650 Mg Supp) 650 mg RC Q6H PRN PRN Reason: TEMP>=99.5F Acetaminophen (Tylenol 650 Mg Supp) 650 mg RC Q6H PRN PRN Reason: Headache Acetaminophen (Tylenol 325mg Tab) 650 mg PO Q6 PRN PRN Reason: Headache Atorvastatin Calcium (Lipitor) 80 mg PO HS [facility] Baclofen (Lioresal) 20 mg PO HS [facility] Cinacalcet (Sensipar) 30 mg PO DIN [facility] Last Admin: 06/11/18 03:00 Dose: Not Given Diazepam (Valium) 5 mg PO Q12H PRN; Protocol PRN Reason: Muscle spasm Docusate Sodium (Colace) 100 mg PO TID [facility] Last Admin: 06/11/18 11:04 Dose: 100 mg Fentanyl (Duragesic) 0 patch TD Q72H [facility] Heparin Sodium (Porcine) (Heparin) 5,000 units SC Q8 [facility]; Protocol Last Admin: 06/11/18 05:25 Dose: 5,000 units Hydroxyzine HCl (Atarax) 25 mg PO Q8H PRN PRN Reason: Itching / Pruritus Aztreonam 500 mg/ Sodium (Chloride) 100 mls @ 100 mls/hr IVPB Q12H [facility]; Protocol Stop: 06/21/18 11:01 Last Admin: 06/11/18 11:29 Dose: 100 mls/hr Insulin Human Regular (Humulin R Low) 0 units SC ACHS [facility]; Protocol Last Admin: 06/11/18 08:51 Dose: Not Given Levothyroxine Sodium (Synthroid) 25 mcg PO 0600 [facility] Metronidazole (Flagyl) 500 mg PO Q8 [facility]; Protocol Stop: 06/18/18 14:01 Midodrine (Proamatine) 2.5 mg PO TID [facility] Last Admin: 06/11/18 11:04 Dose: 2.5 mg Morphine Sulfate (Morphine) 1 mg IVP Q6H PRN PRN Reason: Pain, severe (8-10) Ondansetron HCl (Zofran Inj) 4 mg IVP Q4H PRN PRN Reason: Nausea/Vomiting Pantoprazole Sodium (Protonix Ec Tab) 40 mg PO 0600 [facility] Last Admin: 06/11/18 05:24 Dose: 40 mg Pregabalin (Lyrica) 75 mg PO BID [facility] Last Admin: 06/11/18 11:04 Dose: 75 mg Sennosides (Senokot Tab) 17.2 mg PO HS [facility] Sevelamer HCl (Renagel) 800 mg PO TID [facility] Last Admin: 06/11/18 11:04 Dose: 800 mg Silver Sulfadiazine (Silvadene 1% 25 Gm) 1 gm TP DAILY [facility] Vitamin B Complex/Vit C/Folic Acid (Nephro-Jose Miguel) 1 tab PO DAILY [facility] Last Admin: 06/11/18 11:04 Dose: 1 tab Results - Vital Signs Recent Vital Signs: Last Vital Signs Temp 97.4 F L 06/11/18 07:42 Pulse 74 06/11/18 07:42 Resp 18 06/11/18 07:42 BP 88/49 L 06/11/18 07:42 Pulse Ox 97 06/11/18 07:42 - Labs Result Diagrams: 06/11/18 05:00 06/11/18 05:00 Labs: Laboratory Results - last 24 hr 06/10/18 06/10/18 06/11/18 22:45 22:45 02:55 WBC 6.6 RBC 3.09 L Hgb 9.3 L Hct 29.4 L MCV 95.1 MCH 30.1 MCHC 31.6 RDW 17.4 H Plt Count 135 MPV 10.6 Neut % (Auto) 72.6 H Lymph % (Auto) 12.1 L Letcher % (Auto) 13.4 H Eos % (Auto) 1.4 L Baso % (Auto) 0.5 Lymph # (Auto) 0.8 L Letcher # (Auto) 0.9 H Eos # (Auto) 0.1 Baso # (Auto) 0.03 Absolute Neuts (auto) 4.79 ESR Retic Count PT 16.5 H INR 1.49 APTT 35.9 Sodium 140 Potassium 5.0 Chloride 100 Carbon Dioxide 26 Anion Gap 19 BUN 54 H Creatinine 10.7 H* Est GFR ( Amer) 4 Est GFR (Non-Af Amer) 4 POC Glucose (mg/dL) Random Glucose 179 H Hemoglobin A1c Calcium 7.7 L Phosphorus Magnesium 3.1 H Iron TIBC % Saturation Ferritin Total Bilirubin 1.9 H AST 42 H ALT 23 Alkaline Phosphatase 149 H Total Creatine Kinase Troponin I C-React Prot High Sens Total Protein 8.2 Albumin 4.1 Globulin 4.1 Albumin/Globulin Ratio 1.0 L Triglycerides Cholesterol LDL Cholesterol Direct HDL Cholesterol Vitamin B12 25-OH Vitamin D Total Folate Procalcitonin Free T4 Thyroxine (T4) TSH 3rd Generation Blood Type Blood Type Confirm Antibody Screen Crossmatch BBK History Checked 06/11/18 06/11/18 06/11/18 05:00 05:00 05:00 WBC RBC Hgb Hct MCV MCH MCHC RDW Plt Count MPV Neut % (Auto) Lymph % (Auto) Letcher % (Auto) Eos % (Auto) Baso % (Auto) Lymph # (Auto) Letcher # (Auto) Eos # (Auto) Baso # (Auto) Absolute Neuts (auto) ESR Retic Count PT INR APTT 35.3 Sodium Potassium Chloride Carbon Dioxide Anion Gap BUN Creatinine Est GFR ( Amer) Est GFR (Non-Af Amer) POC Glucose (mg/dL) Random Glucose Hemoglobin A1c 6.1 Calcium Phosphorus Magnesium Iron TIBC % Saturation Ferritin Total Bilirubin AST ALT Alkaline Phosphatase Total Creatine Kinase Troponin I C-React Prot High Sens > 15.00 H Total Protein Albumin Globulin Albumin/Globulin Ratio Triglycerides Cholesterol LDL Cholesterol Direct HDL Cholesterol Vitamin B12 25-OH Vitamin D Total Folate Procalcitonin Free T4 Thyroxine (T4) TSH 3rd Generation Blood Type Blood Type Confirm Antibody Screen Crossmatch BBK History Checked 06/11/18 06/11/18 06/11/18 05:00 05:00 05:00 WBC 5.1 D RBC 2.94 L Hgb 8.7 L Hct 27.7 L MCV 94.2 MCH 29.6 MCHC 31.4 RDW 17.3 H Plt Count 119 L MPV 10.3 Neut % (Auto) 73.5 H Lymph % (Auto) 14.5 L Letcher % (Auto) 9.4 H Eos % (Auto) 1.8 Baso % (Auto) 0.8 Lymph # (Auto) 0.7 L Letcher # (Auto) 0.5 Eos # (Auto) 0.1 Baso # (Auto) 0.04 Absolute Neuts (auto) 3.76 ESR 38 H Retic Count PT INR APTT Sodium 141 Potassium 4.4 Chloride 100 Carbon Dioxide 26 Anion Gap 18 BUN 54 H Creatinine 11.1 H* Est GFR ( Amer) 4 Est GFR (Non-Af Amer) 3 POC Glucose (mg/dL) Random Glucose 127 H Hemoglobin A1c Calcium 7.5 L Phosphorus 4.0 Magnesium 3.1 H Iron TIBC % Saturation Ferritin Total Bilirubin 1.7 H AST 32 ALT 23 Alkaline Phosphatase 136 H Total Creatine Kinase Troponin I C-React Prot High Sens Total Protein 7.6 Albumin 3.8 Globulin 3.8 Albumin/Globulin Ratio 1.0 L Triglycerides 51 Cholesterol 92 L LDL Cholesterol Direct 41 HDL Cholesterol 38 Vitamin B12 25-OH Vitamin D Total Folate Procalcitonin Free T4 1.10 Thyroxine (T4) TSH 3rd Generation 8.58 H Blood Type Blood Type Confirm Antibody Screen Crossmatch BBK History Checked 06/11/18 06/11/18 06/11/18 05:00 05:00 05:00 WBC RBC Hgb Hct MCV MCH MCHC RDW Plt Count MPV Neut % (Auto) Lymph % (Auto) Letcher % (Auto) Eos % (Auto) Baso % (Auto) Lymph # (Auto) Letcher # (Auto) Eos # (Auto) Baso # (Auto) Absolute Neuts (auto) ESR Retic Count PT INR APTT Sodium Potassium Chloride Carbon Dioxide Anion Gap BUN Creatinine Est GFR ( Amer) Est GFR (Non-Af Amer) POC Glucose (mg/dL) Random Glucose Hemoglobin A1c Calcium Phosphorus Magnesium Iron 47 TIBC 252 L % Saturation 19 L Ferritin 315.0 Total Bilirubin AST ALT Alkaline Phosphatase Total Creatine Kinase Troponin I C-React Prot High Sens Total Protein Albumin Globulin Albumin/Globulin Ratio Triglycerides Cholesterol LDL Cholesterol Direct HDL Cholesterol Vitamin B12 719 25-OH Vitamin D Total 23.6 L Folate > 20.0 Procalcitonin Free T4 Thyroxine (T4) TSH 3rd Generation Blood Type Blood Type Confirm Antibody Screen Crossmatch BBK History Checked 06/11/18 06/11/18 06/11/18 05:00 05:00 07:04 WBC RBC Hgb Hct MCV MCH MCHC RDW Plt Count MPV Neut % (Auto) Lymph % (Auto) Letcher % (Auto) Eos % (Auto) Baso % (Auto) Lymph # (Auto) Letcher # (Auto) Eos # (Auto) Baso # (Auto) Absolute Neuts (auto) ESR Retic Count PT INR APTT Sodium Potassium Chloride Carbon Dioxide Anion Gap BUN Creatinine Est GFR ( Amer) Est GFR (Non-Af Amer) POC Glucose (mg/dL) 117 H Random Glucose Hemoglobin A1c Calcium Phosphorus Magnesium Iron TIBC % Saturation Ferritin Total Bilirubin AST ALT Alkaline Phosphatase Total Creatine Kinase Troponin I C-React Prot High Sens Total Protein Albumin Globulin Albumin/Globulin Ratio Triglycerides Cholesterol LDL Cholesterol Direct HDL Cholesterol Vitamin B12 25-OH Vitamin D Total Folate Procalcitonin 0.30 Free T4 1.10 Thyroxine (T4) 4.6 L TSH 3rd Generation Blood Type Blood Type Confirm Antibody Screen Crossmatch BBK History Checked 06/11/18 06/11/18 06/11/18 07:11 10:00 10:00 WBC RBC Hgb Hct MCV MCH MCHC RDW Plt Count MPV Neut % (Auto) Lymph % (Auto) Letcher % (Auto) Eos % (Auto) Baso % (Auto) Lymph # (Auto) Letcher # (Auto) Eos # (Auto) Baso # (Auto) Absolute Neuts (auto) ESR Retic Count 1.74 H PT INR APTT Sodium Potassium Chloride Carbon Dioxide Anion Gap BUN Creatinine Est GFR ( Amer) Est GFR (Non-Af Amer) POC Glucose (mg/dL) Random Glucose Hemoglobin A1c Calcium Phosphorus Magnesium Iron TIBC % Saturation Ferritin Total Bilirubin AST ALT Alkaline Phosphatase Total Creatine Kinase 115 Troponin I 0.07 C-React Prot High Sens Total Protein Albumin Globulin Albumin/Globulin Ratio Triglycerides Cholesterol LDL Cholesterol Direct HDL Cholesterol Vitamin B12 25-OH Vitamin D Total Folate Procalcitonin Free T4 Thyroxine (T4) TSH 3rd Generation Blood Type AB POSITIVE Blood Type Confirm Antibody Screen Negative Crossmatch See Detail BBK History Checked No verified bt 06/11/18 06/11/18 11:00 11:11 WBC RBC Hgb Hct MCV MCH MCHC RDW Plt Count MPV Neut % (Auto) Lymph % (Auto) Letcher % (Auto) Eos % (Auto) Baso % (Auto) Lymph # (Auto) Letcher # (Auto) Eos # (Auto) Baso # (Auto) Absolute Neuts (auto) ESR Retic Count PT INR APTT Sodium Potassium Chloride Carbon Dioxide Anion Gap BUN Creatinine Est GFR ( Amer) Est GFR (Non-Af Amer) POC Glucose (mg/dL) 191 H Random Glucose Hemoglobin A1c Calcium Phosphorus Magnesium Iron TIBC % Saturation Ferritin Total Bilirubin AST ALT Alkaline Phosphatase Total Creatine Kinase Troponin I C-React Prot High Sens Total Protein Albumin Globulin Albumin/Globulin Ratio Triglycerides Cholesterol LDL Cholesterol Direct HDL Cholesterol Vitamin B12 25-OH Vitamin D Total Folate Procalcitonin Free T4 Thyroxine (T4) TSH 3rd Generation Blood Type Blood Type Confirm AB POSITIVE Antibody Screen Crossmatch BBK History Checked
--- NOTE | 2018-06-11 17:07 | CP.PCM.PN ---
Subjective - Date & Time of Evaluation Date of Evaluation: 06/11/18 Time of Evaluation: 16:59 - Subjective Subjective: I was called to inpatient dialysis due to transfusion reaction. Patient was undergoing dialysis and being transfused with pRBC. Patient states that she started to get diffusely pruritic. Dialysis nurse at that time stopped the transfusion. Patient states that her pruritis resolved at that point. Dialysis nurse spoke with Dr. Tian, flux tube attendant, who recommended stopping the transfusion and continuing with dialysis. Patient is non-toxic, non-distressed, RRR, CTAB, abdomen soft, NTND, no erythema or discharge at IV site or dialysis s ite. Patient will be evaluated for transfusion reaction. Will hold transfusion reaction at this time. Order placed in EMR for transfusion reaction workup. Specimen collected to be sent to blood bank. Primary was notified. Objective - Vital Signs/Intake and Output Vital Signs (last 24 hours): Temp Pulse Resp BP Pulse Ox 97.4 F L 74 18 88/49 L 97 06/11/18 07:42 06/11/18 07:42 06/11/18 07:42 06/11/18 07:42 06/11/18 07:42 Intake and Output: 06/11/18 06/11/18 06:59 18:59 Intake Total 240 Balance 240 - Medications Medications: Current Medications Acetaminophen (Tylenol 325mg Tab) 650 mg PO Q6 PRN PRN Reason: TEMP>=99.5F Last Admin: 06/11/18 12:02 Dose: 650 mg Acetaminophen (Tylenol 650 Mg Supp) 650 mg RC Q6H PRN PRN Reason: TEMP>=99.5F Acetaminophen (Tylenol 650 Mg Supp) 650 mg RC Q6H PRN PRN Reason: Headache Acetaminophen (Tylenol 325mg Tab) 650 mg PO Q6 PRN PRN Reason: Headache Atorvastatin Calcium (Lipitor) 80 mg PO HS [facility] Baclofen (Lioresal) 20 mg PO HS [facility] Cinacalcet (Sensipar) 30 mg PO DIN [facility] Last Admin: 06/11/18 03:00 Dose: Not Given Diazepam (Valium) 5 mg PO Q12H PRN; Protocol PRN Reason: Muscle spasm Docusate Sodium (Colace) 100 mg PO TID [facility] Last Admin: 06/11/18 11:04 Dose: 100 mg Fentanyl (Duragesic) 0 patch TD Q72H [facility] Heparin Sodium (Porcine) (Heparin) 5,000 units SC Q8 [facility]; Protocol Last Admin: 06/11/18 05:25 Dose: 5,000 units Hydroxyzine HCl (Atarax) 25 mg PO Q8H PRN PRN Reason: Itching / Pruritus Aztreonam 500 mg/ Sodium (Chloride) 100 mls @ 100 mls/hr IVPB Q12H [facility]; Protocol Stop: 06/21/18 11:01 Last Admin: 06/11/18 11:29 Dose: 100 mls/hr Insulin Human Regular (Humulin R Low) 0 units SC ACHS [facility]; Protocol Last Admin: 06/11/18 08:51 Dose: Not Given Levothyroxine Sodium (Synthroid) 25 mcg PO 0600 [facility] Metronidazole (Flagyl) 500 mg PO Q8 [facility]; Protocol Stop: 06/18/18 14:01 Midodrine (Proamatine) 2.5 mg PO TID [facility] Last Admin: 06/11/18 11:04 Dose: 2.5 mg Morphine Sulfate (Morphine) 1 mg IVP Q6H PRN PRN Reason: Pain, severe (8-10) Ondansetron HCl (Zofran Inj) 4 mg IVP Q4H PRN PRN Reason: Nausea/Vomiting Pantoprazole Sodium (Protonix Ec Tab) 40 mg PO 0600 [facility] Last Admin: 06/11/18 05:24 Dose: 40 mg Pregabalin (Lyrica) 75 mg PO BID [facility] Last Admin: 06/11/18 11:04 Dose: 75 mg Sennosides (Senokot Tab) 17.2 mg PO [facility] Sevelamer HCl (Renagel) 800 mg PO TID [facility] Last Admin: 06/11/18 11:04 Dose: 800 mg Silver Sulfadiazine (Silvadene 1% 25 Gm) 1 gm TP DAILY [facility] Vitamin B Complex/Vit C/Folic Acid (Nephro-Jose Miguel) 1 tab PO DAILY [facility] Last Admin: 06/11/18 11:04 Dose: 1 tab - Labs Labs: 06/11/18 05:00 06/11/18 05:00 PT 16.5 SECONDS (9.4-12.5) H 06/11/18 02:55 INR 1.49 06/11/18 02:55 APTT 35.3 Seconds (26.9-38.3) 06/11/18 05:00
--- NOTE | 2018-06-11 18:44 | CT ---
Date of service: 06/11/2018 PROCEDURE: CT Chest, Abdomen and Pelvis without intravenous contrast HISTORY: R breast cellulitis COMPARISON: None available. TECHNIQUE: Radiation dose: Total exam DLP = 1453.38 mGy-cm. This CT exam was performed using one or more of the following dose reduction techniques: Automated exposure control, adjustment of the mA and/or kV according to patient size, and/or use of iterative reconstruction technique. FINDINGS: CT CHEST WITHOUT CONTRAST: LUNGS: No evidence of focal infiltrate or consolidation in the lungs. MEDIASTINUM: The thoracic aorta is ectatic and tortuous. The main pulmonary artery is mildly enlarged. The heart is enlarged. LYMPH NODES: Unremarkable. PLEURA: Unremarkable. No pneumothorax. No pleural fluid. BONES: There are scattered small lytic bony lesions in the osseous structures noted OTHER FINDINGS: None. CT ABDOMEN AND PELVIS: LIVER: Suspicious for cirrhotic manifestation of the liver. GALLBLADDER AND BILE DUCTS: Status post cholecystectomy. No evidence of biliary ductal dilatation. PANCREAS: No definite evidence of acute pathology in the pancreas in this noncontrast study. SPLEEN: Unremarkable. ADRENALS: Unremarkable. No mass. KIDNEYS AND URETERS: Unremarkable. No hydronephrosis. No solid mass. VASCULATURE: Diffuse vascular calcification is noted. No evidence of article aneurysm. BOWEL: Colonic diverticulosis are noted. No evidence of high-grade bowel obstruction. APPENDIX: No evidence of appendicitis. PERITONEUM: No evidence of significant free fluid or free air in the abdomen and pelvis. LYMPH NODES: Mildly enlarged retroperitoneal and mesenteric lymph nodes noted. BLADDER: The urinary bladder is not distended. REPRODUCTIVE: The uterus and adnexa are not visualized. BONES: No acute fracture. OTHER FINDINGS: There is a diffuse skin and subcutaneous thickening noted in the chest wall right breast and abdominal wall likely represent cellulitis. No definite evidence of discrete drainable fluid collection in this limited noncontrast study noted. There is diffuse subcutaneous edema also noted. IMPRESSION: Limited assessment without IV contrast administration. Diffuse skin and subcutaneous thickening noted in the chest wall and abdominal wall more prominent on the right breast and right chest wall likely represent cellulitis. No definite evidence of loculated fluid or drainable abscess formation in this limited noncontrast study. Multiple small lytic bony lesions seen in the osseous structures. Correlate clinically for osseous metastasis versus multiple myeloma. Preliminary report was submitted by [facility] Radiology contains concordant findings.
--- NOTE | 2018-06-11 20:25 | CARD ---
APPROVED REPORT Date of service: 06/10/2018 EKG Measurement Heart [id number] <Conclusion> Normal sinus rhythm Right bundle branch block Left anterior fascicular block Bifascicular block T wave abnormality, consider anterolateral ischemia Abnormal ECG
--- NOTE | 2018-06-11 22:14 | CON ---
DATE: 06/11/2018 REASON FOR DICTATION: Covering for Dr. Chan Berman. REASON FOR CONSULTATION: History of cardiac evaluation; history of coronary artery disease; history of CABG; history of PTCA; history of pacemaker; and end-stage renal disease, on dialysis. BRIEF CLINICAL HISTORY: This is a 67-year-old obese female with past medical history significant for end-stage renal disease, on dialysis Tuesday, , and Tuesday; history of coronary artery disease; history of CABG; history of stent; history of hypertension; history of pacemaker in 2007 and then revision was done in [address] Seth Martines, follow Dr. Seth Matrines who was [place] [facility] [place] and they were told that if the numbers are good, does not do the dialysis, supposed to be on Tuesday, but the patient came with the complaint of back pain and swelling of the face and itching all over the body. Denies any chest pain. Denies any shortness of breath. Denies any palpitation. PAST MEDICAL HISTORY: Significant for coronary artery disease, status post CABG; status post PTCA; status post permanent pacemaker, and pacemaker generator changed in 2018, initial implant was 2007; history of end-stage renal disease, on dialysis Tuesday, , Tuesday, being followed by Dr. Justin Diallo, service secretary and Dr. Seth Martines for coronary artery disease and pacemaker. SOCIAL HISTORY: Denies smoking. Denies any history of alcohol abuse. CURRENT MEDICATIONS: The patient is taking at home; Valium, vitamin B complex, metoprolol succinate 100 mg daily, Lyrica, Crestor, hydroxyzine, Sensipar, and amitriptyline hydrochloride 10 mg p.o. b.i.d., and baclofen 20 mg p.o. at bedtime. ALLERGIES: ALLERGY TO IODINE CONTRAST AND ALLERGY TO INSULIN. Two days ago, the patient was in ER, seen by for back pain and with discharge, the patient had similar complaint and admitted [place] [facility] REVIEW OF SYSTEMS: As per HPI. PHYSICAL EXAMINATION: GENERAL: Height of the patient 5 feet 5 inches, weight of the patient 189 pounds, and body mass index 32 kg/m2. VITAL SIGNS: Temperature afebrile, heart rate 74, and blood pressure 100/52. HEENT: PERRLA. Extraocular muscles intact. NECK: Supple. No carotid bruit or thyromegaly. CHEST: Clear to auscultation. HEART: S1 and S2 regular. ABDOMEN: Soft. EXTREMITIES: Clubbing and cyanosis negative. LABORATORY DATA: EKG shows V paced rhythm, but underlying possible AFib. Blood workup as follows; WBC 5, hemoglobin , hematocrit 27.7, and platelet count 119. Chemistry shows sodium 141, potassium 4.4, chloride 100, carbon dioxide 26, anion gap of 18, BUN 54, and creatinine 11.1. Her TSH is 8.58. Troponin is 0.07. IMPRESSION: This is a 67-year-old female with past medical history significant for coronary artery disease; coronary artery bypass graft; status post percutaneous transluminal coronary angioplasty; end-stage renal disease, on dialysis; diabetes; hypertension; hyperlipidemia; hypothyroidism; history of pacemaker, recently generator change, EKG shows underlying atrial fibrillation with ventricular paced rhythm; anemia; being followed by Dr. Seth Martines; and admitted with back pain. RECOMMENDATIONS: Continue dialysis because the patient's creatinine is 11.1. We will get echo to assess LV function, lipid profile, and TSH. Further recommendation depend upon hospital course. Needs to know the reason why the patient is not on anticoagulation. We will get in touch with Dr. Seth Martines, the primary care doctor why the patient is not on Coumadin because the patient is in AFib. We will follow with you. I will transfer care tomorrow to Dr. Chan Berman. Again, I need to know why the patient is not on Coumadin, anticoagulation, possibly GI bleed in the past or anything that is contraindication for anticoagulation. If no contraindication, the anticoagulation is considered. Anticoagulation for underlying AFib. Thank you Dr. Simeon for providing us the opportunity in taking care of the patient, Nery Saalmanca. Layla Barnes MD
--- NOTE | 2018-06-11 22:58 | CARD ---
APPROVED REPORT Date of service: 06/11/2018 EKG Measurement Heart [id number] <Conclusion> Wide QRS rhythm Probably Ventricular paced with 1:1 capture Underlyiny rhythm probably atrial fibrillation CCR Abnormal ECG
[2018-06-12] MEDS: Levothyroxine 25 MCG TAB PO SCH (05:39)
[2018-06-12] MEDS: Pantoprazole 40 mg EC Tab PO SCH (05:40)
[2018-06-12 06:43] LABS: BASO # 0.01 K/mm3 (0.0-2.0); BASO % 0.2 % (0.0-3.0); EOS # 0.1 (0.0-0.7); EOS % 1.1 % (1.5-5.0); HEMOGLOBIN 8.7 g/dL (12.0-16.0); LYMPH # 0.8 (1.2-3.4); MEAN CELL VOLUME 93.8 fl (80.0-105.0); MEAN CORPUSCULAR HEMOGLOBIN 29.9 pg (25.0-35.0); MEAN CORPUSCULAR HGB CONC 31.9 g/dl (31.0-37.0); MEAN PLATELET VOLUME 10.6 fl (7.0-11.0); MONO # 0.6 (0.1-0.6); MONO % 10.5 % (1.0-6.0); RBC 2.91 10^6/uL (3.5-6.1); RED CELL DISTRIBUTION WIDTH 17.5 % (11.5-14.5); WHITE BLOOD COUNT 5.3 10^3/uL (4.5-11.0)
[2018-06-12 06:59] LABS: ALBUMIN 3.5 g/dL (3.0-4.8); BILIRUBIN,DIRECT 1.2 mg/dL (0.0-0.4); CALCIUM 7.9 mg/dL (8.4-10.5)
[2018-06-12] MEDS ORDERED: Sodium Chloride 0.9% 500 ML IV STA (07:37)
[2018-06-12] MEDS ORDERED: Sodium Chloride 0.9% 1,000 ML IV STA (07:58)
--- NOTE | 2018-06-12 08:19 | PCM.RRT ---
<Braxton Downey - Last Filed: 06/12/18 15:45> SHEET METAL WORKER SUPERVISOR Nurse Assessment - Situation Date: 06/12/18 Time SHEET METAL WORKER SUPERVISOR was called: 07:54 SHEET METAL WORKER SUPERVISOR Responder Arrival Time: 07:58 SHEET METAL WORKER SUPERVISOR Location:: [address] [place] [address] SHEET METAL WORKER SUPERVISOR Reason for Call: Hypotension SHEET METAL WORKER SUPERVISOR Called By: RN - Respiratory Oxygen Delivery Method: Nasal Cannula @L/min - Diagnostic Test Ordered EKG: Yes Chest X-Ray: Yes CT Scan: Yes - Stat Labs Ordered SHEET METAL WORKER SUPERVISOR Stat Labs Ordered: BLOOD C&S X2, ABG - Finger Stick Blood Glucose Finger Stick Blood Glucose: 147 - Reina Coma Scale Coma Scale Eye Opening: Spontaneous Coma Scale Motor: Obeys Commands Movement Coma Scale Verbal: Oriented - Sepsis Screen Part 1 Sepsis Screen Part 1: Hypotensive - Recommendations 5) SHEET METAL WORKER SUPERVISOR Level of Care Recommendations: Transfer to ICU Notifications: Attending Physician I.Reason for SHEET METAL WORKER SUPERVISOR - A) Acute Change in Patient: (Select all that apply): Staff member or family is worried about patient, Acute change in SBP below - Neurological Status (Select all that apply): Alert, Responsive, Follows Commands, Disoriented - Respiratory Oxygen Delivery Method: Nasal Cannula @L/min - Constitutional Appears: Non-toxic, No Acute Distress - Head Head Exam: ATRAUMATIC, NORMOCEPHALIC - Respiratory Exam Respiratory Exam: Clear to Ausculation Bilateral, NORMAL BREATHING PATTERN. absent: Rales, Rhonchi, Wheezes - Cardiovascular Exam Cardiovascular Exam: REGULAR RHYTHM, RRR, +S1, +S2. absent: Gallop, Rubs, Murmur - Neurological Exam Neurological Exam: Alert, Awake - Extremities Exam Extremities Exam: Normal Capillary Refill Plan - Assessment of Findings&Treatment Plan SHEET METAL WORKER SUPERVISOR called at 0754 for concern of worsening hypotension. Patient had not yet received AM dose of midodrine. Patient was given valium 5 mg earlier this AM around 0100. Hypotension improved after giving midodrine dose. Hospitalists were present at bedside for patient evaluation. Dr. Simeon notified and agrees with ICU consult. ICU consult placed. <Karol Mckeon - Last Filed: 06/12/18 15:55> SHEET METAL WORKER SUPERVISOR Nurse Assessment - Vital Signs Vital Sign: Rapid Response Vital Sign Blood Pressure 78/27 Pulse Rate 69 Respiratory Rate 16 Oxygen Saturation 97 - Vital Signs at end of SHEET METAL WORKER SUPERVISOR Vital Signs at end of SHEET METAL WORKER SUPERVISOR: Rapid Response End Vital Sign Blood Pressure 85/62 Pulse Rate 64 Respiratory Rate 17 O2 Sat by Pulse Oximetry 97 Attending/Attestation - Attestation I have personally seen and examined this patient.: Yes I have fully participated in the care of the patient.: Yes I have reviewed all pertinent clinical information, including history, physical exam and plan: Yes Notes (Text): 06/12/18 15:51 SHEET METAL WORKER SUPERVISOR called this morning for hypotension. Labs and medications reviewed. Patient is on midodrine. Patient did not respond to fluid boluses. Will need to monitor respiratoy status closely as patient is on dialysis. ICU consult requested for possible ICU transfer. PMD notified.
--- NOTE | 2018-06-12 08:48 | HP ---
DATE OF EXAM: 06/11/2018 The patient was seen and examined. The patient's vital signs, diagnostic data, imaging studies, ER notes, triage notes, and history and physical examination done by the biomedical equipment support specialist all reviewed. The patient was seen and examined. IMPRESSION AND PLAN: 1. Chronic back pain. 2. Volume and fluid overload secondary to missed hemodialysis. 3. Hypotension. 4. Coronary artery disease and coronary artery bypass graft. 5. Status post left upper chest automatic implantable cardioverter-defibrillator implant. 6. Normocytic anemia. 7. Thrombocytosis. 8. Granulocytosis. 9. Elevated erythrocyte sedimentation rate and elevated reticulocyte count. 10. Hypovitaminosis D. 11. Hypothyroidism with TSH of 8.5. 12. Iron-deficiency anemia. 13. Diabetes mellitus well controlled with hemoglobin A1c of 6.1. 14. Hypermagnesemia. 15. Elevated C-reactive protein of greater than 15. 16. Bilateral lower extremity venous stasis. 17. AB+ blood type. 18. Cardiomegaly. 19. Status post pacemaker implant. 20. Right breast diffuse soft tissue edema and subcutaneous inflammatory fat stranding of the anterior abdominal wall. 21. Status post coronary artery bypass graft. 22. Status post automatic implantable cardioverter-defibrillator implant. 23. Bibasilar atelectasis. 24. Pulmonary vascular congestion. 25. Generalized anasarca. 26. Axillary lymphadenopathy. 27. Right breast and right chest wall cellulitis. 28. Hepatomegaly. 29. Cholecystectomy. 30. Diverticulosis of the colon. 31. Diffuse spinal spondylosis. 32. Left iliopsoas muscle lipoma. 33. Permanent pacemaker versus automatic implantable cardioverter-defibrillator implant. 34. Questionable atrial fibrillation versus paced rhythm. 35. Age indeterminate anterolateral inferior infarct. 36. Intermittent paced rhythm with questionable right bundle-branch block. 37. Inferolateral coronary ischemic changes. 38. Diabetic foot disease with diabetic foot and toe ulceration. 39. Fluid and volume overload. 40. End-stage renal disease, hemodialysis dependent three times a week with prolonged missed hemodialysis. 41. Obesity with elevated body mass index. 42. Morbid obesity. 43. History of left toe amputation and right foot diabetic foot disease and chronic low back pain. Plan at this time, the patient is admitted to telemetry. The patient has been ordered serial labs. HIV and hepatitis serologies has been ordered. CURRENT CONSULTATIONS: 1. Cardiology. 2. Infectious Disease. 3. Nephrology. 4. Podiatry. TCU evaluation ordered. The patient was given Aranesp 60 mcg IV and Atarax 25 mg every 8 hours p.r.n. The patient was started on Azactam 500 IV every 12 hours, Colace 100 mg three times a day, and Duragesic patch 12 mcg every 72 hours. The patient is on Flagyl 500 p.o. every 8 hours. The patient is on Humulin low-dose sliding scale coverage. The patient is on baclofen 20 mg at bedtime, Lipitor 80 mg at bedtime, Lyrica 75 mg twice a day, morphine 1 mg IV every 6 hours p.r.n., Nephro-Jose Miguel 1 tablet daily, ProAmatine 2.5 mg three times a day, Protonix 40 mg daily, Renagel 800 mg three times a day, Senokot 17.2 mg at bedtime, Sensipar 30 mg daily, Silvadene cream to the affected area of right breast daily, Synthroid 25 mcg daily, Tylenol p.o. suppository every 6 hours p.r.n., Valium 5 mg p.o. every 12 hours p.r.n., vancomycin the patient received in the emergency room, and Zofran 4 mg IV every 4 hours p.r.n. The patient has been ordered an MRI of the lumbar spine, the results of which are pending. Repeat EKG ordered. Echo with Doppler ordered. Consistent carbohydrate diet ordered. The patient has been ordered out of bed, physical therapy, occupational therapy, and gait training ordered. The patient has been started on Synthroid. The patient's present management will be dependent upon the patient's clinical condition, hemodynamic status. The patient has been ordered transfusion of 2 units of PRBC on hemodialysis. The patient's further management will be dependent upon the patient's clinical condition, hemodynamic status and as per the patient response to therapeutic intervention, as per the patient's diagnostic test results, and as per recommendation by Cardiology, Nephrology, Infectious Disease, and Podiatry. Dictated and electronically signed, not read. Jimy Simeon MD [facility] # [id number]
[2018-06-12 08:52] LABS: ARTERIAL BLOOD GAS HCO3 27.8 mmol/L (21-28); ARTERIAL BLOOD GAS PCO2 46 mm/Hg (35-45); ARTERIAL BLOOD GAS PH 7.39 (7.35-7.45); ARTERIAL BLOOD GAS TCO2 29.2 mmol.L (22-28)
[2018-06-12] MEDS: Insulin Reg-LOW-Coverage SC SCH ×3 (08:52→22:08)
[2018-06-12] MEDS: Multivitamin Vitamin B Complex (Nephro-Vite) Tab PO SCH (09:39)
--- NOTE | 2018-06-12 09:54 | RAD ---
Date of service: 06/12/2018 HISTORY: rapid, r/o fluid overload COMPARISON: Portable chest 06/10/2018. FINDINGS: LUNGS: Presumed tear telemetry apparatus obscures evaluation of the cardiac silhouette and medial left hemithorax. Permanent cardiac pacemaker reiterated. No definite interval acute infiltrate pleural effusion or pneumothorax bilaterally. Pulmonary vascular pattern remains unremarkable. PLEURA: As per above. CARDIOVASCULAR: Calcific atherosclerotic changes are seen related to the thoracic aorta. OSSEOUS STRUCTURES: Sternotomy wires reiterated. VISUALIZED UPPER ABDOMEN: Normal. OTHER FINDINGS: None. IMPRESSION: Exam scared by a large telemetry device overlying the left hemithorax. No definitive interval infiltrate pleural effusion or pneumothorax appreciated.
--- NOTE | 2018-06-12 10:08 | RAD ---
Date of service: 06/12/2018 PROCEDURE: Right Foot Radiographs. HISTORY: right hallux pain COMPARISON: None. FINDINGS: BONES: Post infectious or post traumatic changes seen at the right 5th metatarsal bone and digits diffusely which are markedly atrophic. Some postoperative change here is difficult to completely exclude. Old healed fractures of the 1st and 2nd metatarsal bones are encountered. Gross degenerative changes are seen at the 1st metatarsophalangeal joint further. Degenerative changes here are so advanced that the joint is grossly deformed. Lesser degenerative changes are appreciate throughout the remaining interphalangeal joints as well as the remaining joints of the right foot diffusely. Diffuse osteopenia suggests osteoporosis. Pes planus is suggested. No subluxation or dislocation identified. Vascular calcifications seen in the plantar greater than dorsal soft tissues as well as posterior leg and ankle soft tissues. JOINTS: As above. SOFT TISSUES: As above. OTHER FINDINGS: None. IMPRESSION: No definite acute displaced fracture. Gross degenerative joint disease 1st metatarsophalangeal joint. No subluxation or dislocation. Diffuse osteopenia suggests osteoporosis. Old healed fracture of the 1st and 2nd metatarsal bones are suggested as well as posttraumatic or post infectious related atrophy throughout the right 5th digit and 5th metatarsal bone. Pes planus likely.
--- NOTE | 2018-06-12 11:01 | CARD ---
APPROVED REPORT Date of service: 06/12/2018 EKG Measurement Heart [id number] <Conclusion> Probably Atrial Fibrillation Moderate Rate. Intermittent Pacemaker Captures. RBBB.ST-T Changes. Pacemaker Spikes Following RS in V4,V5,V6.
--- NOTE | 2018-06-12 11:16 | CT ---
Date of service: 06/12/2018 PROCEDURE: CT HEAD WITHOUT CONTRAST. HISTORY: LETHARGY/HYPOTENSIVE COMPARISON: No prior study available for comparison. TECHNIQUE: Axial computed tomography images were obtained through the head/brain without intravenous contrast. Radiation dose: Total exam DLP = 1012.07 mGy-cm. This CT exam was performed using one or more of the following dose reduction techniques: Automated exposure control, adjustment of the mA and/or kV according to patient size, and/or use of iterative reconstruction technique. FINDINGS: HEMORRHAGE: No intracranial hemorrhage. BRAIN: Mild chronic periventricular white matter ischemic changes seen extending peripherally into the deep and subcortical white matter both cerebral hemispheres. Suspect few scattered chronic bilateral basal nuclei lacunar type infarcts.. [id number] generalized volume loss. VENTRICLES: No obstructive hydrocephalus. CALVARIUM: There are multiple small on round varying sized lucencies seen scattered throughout the calvarium; rule out multiple myeloma. In addition, note is made of a elliptical shaped sclerotic lesion arising from the outer table of the left parietal calvarium nonspecific.; PARANASAL SINUSES: Unremarkable as visualized. No significant inflammatory changes. MASTOID AIR CELLS: Unremarkable as visualized. No inflammatory changes. OTHER FINDINGS: Changes of bilateral cataract surgery. IMPRESSION: No acute intracranial hemorrhage. Mild chronic white matter ischemic changes. Suspect few scattered chronic bilateral basal nuclei lacunar type infarcts. Moderate generalized volume loss. Multiple lucency scattered throughout the calvarium; rule out multiple myeloma or possibly metastatic disease.
[2018-06-12] MEDS ORDERED: DOPamine 400mg/250ml D5W 400 MG/250 ML BAG IV PRN (11:19)
[2018-06-12] MEDS ORDERED: Albumin Human 5% (12.5 gm/250 ml) IV ONE (11:25)
--- NOTE | 2018-06-12 12:35 | CP.PCM.PN ---
Subjective - Date & Time of Evaluation Date of Evaluation: 06/12/18 Time of Evaluation: 09:45 - Subjective Subjective: Patient seen and examined at bedside. Call from nurse due to patient being hypotensive. Patient is communicating well and stating her back hurts. Patient was given morphine and shortly after valium. . Objective - Vital Signs/Intake and Output Vital Signs (last 24 hours): Temp Pulse Resp BP Pulse Ox 97 F L 55 L 20 75/44 L 98 06/12/18 08:35 06/12/18 10:00 06/12/18 08:35 06/12/18 11:55 06/12/18 08:35 Intake and Output: 06/12/18 06/12/18 06:59 18:59 Intake Total 1140 Output Total 100 Balance 1040 - Medications Medications: Current Medications Acetaminophen (Tylenol 325mg Tab) 650 mg PO Q6 PRN PRN Reason: TEMP>=99.5F Last Admin: 06/11/18 12:02 Dose: 650 mg Acetaminophen (Tylenol 650 Mg Supp) 650 mg RC Q6H PRN PRN Reason: TEMP>=99.5F Acetaminophen (Tylenol 650 Mg Supp) 650 mg RC Q6H PRN PRN Reason: Headache Acetaminophen (Tylenol 325mg Tab) 650 mg PO Q6 PRN PRN Reason: Headache Last Admin: 06/12/18 00:58 Dose: 650 mg Atorvastatin Calcium (Lipitor) 80 mg PO HS [facility] Last Admin: 06/11/18 21:25 Dose: 80 mg Cinacalcet (Sensipar) 30 mg PO DIN [facility] Last Admin: 06/11/18 19:43 Dose: Not Given Docusate Sodium (Colace) 100 mg PO TID [facility] Last Admin: 06/12/18 09:39 Dose: Not Given Heparin Sodium (Porcine) (Heparin) 5,000 units SC Q8 [facility]; Protocol Last Admin: 06/12/18 05:39 Dose: 5,000 units Hydroxyzine HCl (Atarax) 25 mg PO Q8H PRN PRN Reason: Itching / Pruritus Aztreonam 500 mg/ Sodium (Chloride) 100 mls @ 100 mls/hr IVPB Q12H [facility]; Protocol Stop: 06/21/18 11:01 Last Admin: 06/12/18 10:00 Dose: 100 mls/hr Dopamine HCl/Dextrose (Dopamine 400mg/250ml D5w) 400 mg in 250 mls @ 16.074 mls/hr IV .[id number] PRN; Protocol PRN Reason: TITRATE TO KEEP SBP>=100 MMHG NOREPINEPHRINE BIT/0.9 % NACL (Levophed 4 Mg/ 250 Ml Ns Premixed) 4 mg in 250 mls @ 15 mls/hr IV .[id number] PRN; Protocol PRN Reason: TITRATE PER MD ORDER Vasopressin 20 units/ Sodium (Chloride) 101 mls @ 9.09 mls/hr IV .[id number] [facility]; Protocol Last Admin: 06/12/18 11:55 Dose: 9.09 mls/hr Insulin Human Regular (Humulin R Low) 0 units SC ACHS [facility]; Protocol Last Admin: 06/12/18 08:52 Dose: Not Given Levothyroxine Sodium (Synthroid) 25 mcg PO 0600 [facility] Last Admin: 06/12/18 05:39 Dose: 25 mcg Metronidazole (Flagyl) 500 mg PO Q8 [facility]; Protocol Stop: 06/18/18 14:01 Last Admin: 06/12/18 05:39 Dose: 500 mg Midodrine (Proamatine) 2.5 mg PO TID [facility] Last Admin: 06/12/18 07:40 Dose: 2.5 mg Ondansetron HCl (Zofran Inj) 4 mg IVP Q4H PRN PRN Reason: Nausea/Vomiting Pantoprazole Sodium (Protonix Ec Tab) 40 mg PO 0600 [facility] Last Admin: 06/12/18 05:40 Dose: 40 mg Sennosides (Senokot Tab) 17.2 mg PO HS [facility] Last Admin: 06/11/18 21:25 Dose: 17.2 mg Sevelamer HCl (Renagel) 800 mg PO TID [facility] Last Admin: 06/12/18 09:40 Dose: Not Given Silver Sulfadiazine (Silvadene 1% 25 Gm) 1 gm TP DAILY [facility] Vitamin B Complex/Vit C/Folic Acid (Nephro-Jose Miguel) 1 tab PO DAILY [facility] Last Admin: 06/12/18 09:39 Dose: Not Given - Labs Labs: 06/12/18 06:00 06/12/18 06:00 PT 16.5 SECONDS (9.4-12.5) H 06/11/18 02:55 INR 1.49 06/11/18 02:55 APTT 35.3 Seconds (26.9-38.3) 06/11/18 05:00 Assessment and Plan - Assessment and Plan (Free Text) Assessment: Patient is a 67 F with a past medical history of CAD s/p CABG and 5 stents, ESRD on HD (Tuesday, , Tuesday), hypertension, hypothyroidism, diabetes mellitus who presents with complaints of severe right sided lower back pain which began about a year ago when patient fell in her kitchen. Plan: Chronic lower back pain; acute exacerbation -CT chest/abdomen/pelvis reveal lytic lesions in spine -Morphine 1mg q6h -ESR and CRP ordered -Physical and occupational therapy Right breast cellulitis -CT chest/abdomen/pelvis reveals right breast cellulitis -Vancomycin given -Clindamycin started -Blood cultures pending ESRD -Nephrology consulted -Replete electrolytes as needed -Continue with renagel Coronary Artery Disease -Cardiology consulted Hypothyroidism -Thyroid panel ordered, patient is hypothyroid will start synthroid Hyperlipidemia -Lipid panel ordered DM -HgA1C 6.1 -ISS-low -fingerstick ACHS Hx of Left toe amputations and Right foot ingrown toe nail -Podiatry consulted -Silvadene cream GI/DVT prophylaxis Protonix/Heparin
[2018-06-12] MEDS ORDERED: Vancomycin 1gm in NS 250ml 1 GM/250 ML BAG IVPB STA (13:50)
--- NOTE | 2018-06-12 14:55 | CON ---
DATE: 06/12/2018 HISTORY OF PRESENT ILLNESS: The patient is a 67-year-old lady with history of end-stage renal disease on dialysis, coronary artery disease, peripheral vascular disease, who presented yesterday with low back pain. She has been treated with opiates and initially was doing okay; however, early in the morning today, her mental status changed, she became very lethargic, and her blood pressure dropped down to 70s, which was slightly lower than her usual blood pressure. Rapid response was called and ICU consult was placed. No fever, no chills, no sweats, no nausea, no vomiting, no diarrhea, no constipation. HPI, PMH are limited due to patient's mental status and most of the information obtained from previous records. PAST MEDICAL HISTORY: End-stage renal disease on dialysis, coronary artery disease status post CABG and PTCA, status post permanent pacemaker, CHF. SOCIAL HISTORY: No alcohol or illicit drug abuse. No tobacco smoking. FAMILY HISTORY: Noncontributory. CURRENT MEDICATIONS: (At home), Valium, vitamin D, metoprolol, Lyrica, Crestor, hydroxyzine, Sensipar, amitriptyline, baclofen. MEDICATION IN THE HOSPITAL: Include Tylenol, Lipitor, aztreonam, Sensipar, Colace, heparin subcu, hydroxyzine, regular insulin sliding scale low protocol, Synthroid, Flagyl, Senokot, Renagel, vitamin B complex, vancomycin was given with dialysis. PHYSICAL EXAMINATION: VITAL SIGNS: Blood pressure 85/39; however, occasionally drops down to 70s, systolic heart rate 60, temperature 97, oxygen saturation 98% on 2 liters nasal cannula. ENT: Head and neck atraumatic. LUNGS: Clear to auscultation bilaterally. HEART: Regular rate and rhythm. S1 and S2 distant. ABDOMEN: Soft, nontender, nondistended. MUSCULOSKELETAL: 1 to 2+ bilateral pedal and ankle edema. NEURO: The patient moves all extremities spontaneously. SKIN: Moist. PSYCH: The patient is very lethargic; however, easily arousable and when so, appears to be able to respond to commands. LABORATORY DATA: Blood gas 7.39/46/97 on 2 liters nasal cannula. Sodium 138, potassium 4.8, chloride 101, carbon dioxide 29, BUN 41, glucose 135. Troponin 0.09, AST of 31, ALT 25, total bilirubin 1.5. INR 1.49. PT of 35.3. Hepatitis B positive, antibody positive. Chest x-ray, no active pulmonary disease. ASSESSMENT AND PLAN: This is a 67-year-old lady with history of end-stage renal disease, and coronary artery disease, who presented with low back pain; however, requires more than expected opiates to control the pain. Her mental status was changed and blood pressure dropped down. Her lactic acid is 1.4 and she maintain adequate ventilation and gas exchange based on ABG. At present time, we will get her to the ICU for further management and monitoring. If need be, we will start her on vasopressor support for her blood pressure. We will order echo. We will continue with antibiotics at present time. We will continue to maintain euvolemia, euglycemia, normothermia, and oxygen saturation more than 90%. We will continue with deep vein thrombosis and gastrointestinal prophylaxis. Addendum: after failed attempt at PICC line, CVC placed in RIJ position without complications. Echo showed RV dilated and hypokinetic, without increased thickness of RV wall, suggesting possibly acute finding-->NE, dobutamine started, vaso 0.03 u/min and stress dose steroids also given. albumin 5% 250 cc given as a bolus. TAC discussed with Dr. Berman-->agreed that would be reasonable. will monitor platelets and coags. if plats would go further down will hold heparin. CTH- no acute intracranial abnormalities, however lytic lesions in calvarium concerning for MM or mets-->Dr. Wylie consult was requested. abx adjusted by ID. will repeat labs to ascertain stable Hb and plats. first trop 0.09 ccm time 40 min [place] MD JACINTA
--- NOTE | 2018-06-12 15:07 | PCM.PROC ---
<Laurie Bain - Last Filed: 06/12/18 15:06> Procedures Attestation:: I certify that I have explained the specified Operation(s) or Procedure(s), risks, benefits and reasonable alternatives to the Patient and/or other person responsible. The opportunity was given to ask questions and all questions answered - Central Line Placement Right Internal Jugular Triple Lumen Catheter Aseptic technique was employed throughout the procedure: Hand Hygiene done prior to procedure, Full sterile barriers (mask, hair cover, sterile gown, sterile gloves), Full body sterile drape, Chloraprep Antiseptic: 30 second prep for IJ or SC sites, Chloraprep Antiseptic: 2 minute prep for Femoral CVP Time Out Performed: Yes Pt. Placed on Pulse Ox Monitor: Yes Central Line Prep: Chlorhexidine-Alcohol Combination Local Anesthesia Used: Lidocaine 1% Amount of Anesthesia Used (mls): 2 Ultrasound Used for Placement: Yes Central Line Lumen Inserted: triple Central Line Length: 20 cm Post Procedure: Sutured in Place, Good Blood Return, All Ports Aspirated, Flu shed, Capped, Sterile Dressing Applied Secured by: Securement device Post procedure dressing: Gauze, Clear vapor permeable, Chlorhexidine disc (Biopatch) Post Procedure X-Ray: Yes Patient Tolerated Procedure: Well, No Complications Immediate Complications: None <[place] - Last Filed: 06/12/18 16:13> Attending/Attestation - Attestation I have personally seen and examined this patient.: Yes I have fully participated in the care of the patient.: Yes I have reviewed all pertinent clinical information, including history, physical exam and plan: Yes Notes (Text): 06/12/18 16:11 after obtaining informed consent oprational area was sterilzied, maximum barrier precautions use, TO perfomred. RIJ vein was cannulated by sterile seldinger technique. guidewire removed, hemostasis acheived, sterile dressings applied. patient tolerated procedure well. cxr confirmed placement of CVC in SVC. no ptx
[2018-06-12] MEDS ORDERED: Heparin25000 units/250ml 1/2NS 25,000 UNITS/250 ML BAG IV PRN (15:11)
--- NOTE | 2018-06-12 15:39 | CP.PCM.PN ---
Subjective - Date & Time of Evaluation Date of Evaluation: 06/12/18 Time of Evaluation: 15:31 - Subjective Subjective: Nephrology Consultation Note Assessment: critical Shock ? cardiogenic/septic Diabetic chronic Kidney Disease (E11.22) Hypertensive Chronic Kidney Disease (I12.0) End stage renal disease (N18.6) dependence on hemodialysis (Z99.2) (TTS) via AVF Anemia (D64.9), Hyperphosphatemia (E83.39), Secondary Hyperparathyroidism (E21.1), HTN (I12.0) CAD s/p CABG obesity thrombocytopenia Lytic lesions ? underluing malignancy breast cellulitis versus malignancy Plan: No acute need for dialysis today. Will plan for dialysis tomorrow if hemodyna mically stable. Continue with Nephrovite 1 tab/day. PRBC as needed for anemia. on weekly ADAM with dialysis as last Hb 8.7 hold phos binders, last phos level 3.8 pt started on pressors. maintain hemodynamic stable Glycemic control, Dialysis consistent diet Further work up/management as per primary team Dose meds/antibiotics (if needed) for ESRD status. Avoid fleets enema/magnesium based laxatives. Thanks for allowing me to participate in care of your patient. Will follow patient with you. Please call if any Qs. had d/w team Dr Amrit Malone Office: [phone] Subjective: Noted events overnight. Patients in ICU. hypotensive. unable to provide ROS Physical Examination: General Appearance: in no acute respiratory distress, ill appering Vitals reviewed and noted as below Head; Atraumatic, normocephalic ENT: no ulcers no thrush. Tongue is midline/dry. Oropharynx: no rash or ulcers. EYES: Pupils are equal, round and reactive to light accommodation. Eye muscles and extraocular movement intact. Sclera is anicteric. Neck; supple no lymphadenopathy, no thyromegaly or bruit Lungs: Normal respiratory rate/effort. Breath sounds bilateral equal and clear anteriorly Heart: Normal rate. s1s2 normal. No rub or gallop. Extremities: no edema. No varicose veins Neurological: Patient is lethargic and AMS status. non communicative Skin: Warm and dry. Normal turgor. No rash. Palpitation: Normal elasticity for age Abdomen: Abdomen is soft. Bowel sounds +. There is no abdominal tenderness, no guarding/rigidity or organomegaly Psych: deferred MSK: no joint tenderness or swelling. Digits and nails normal, no deformity : kidney or bladder not palpable Access: AVF 06/12/18: breast examined with RN, rt breast everardo-areolar swelling fulness ? mass, peau [place] orange appearance Labs/imaging reviewed. Past medical history, past surgical history, family history, social history, allergy reviewed and noted as below Family Hx: no hx of CKD. Non contributory Objective - Vital Signs/Intake and Output Vital Signs (last 24 hours): Temp Pulse Resp BP Pulse Ox 97 F L 55 L 20 75/44 L 98 06/12/18 08:35 06/12/18 10:00 06/12/18 08:35 06/12/18 11:55 06/12/18 08:35 Intake and Output: 06/12/18 06/12/18 06:59 18:59 Intake Total 1140 Output Total 100 Balance 1040 - Medications Medications: Current Medications Acetaminophen (Tylenol 325mg Tab) 650 mg PO Q6 PRN PRN Reason: TEMP>=99.5F Last Admin: 06/11/18 12:02 Dose: 650 mg Acetaminophen (Tylenol 650 Mg Supp) 650 mg RC Q6H PRN PRN Reason: TEMP>=99.5F Acetaminophen (Tylenol 650 Mg Supp) 650 mg RC Q6H PRN PRN Reason: Headache Acetaminophen (Tylenol 325mg Tab) 650 mg PO Q6 PRN PRN Reason: Headache Last Admin: 06/12/18 00:58 Dose: 650 mg Atorvastatin Calcium (Lipitor) 80 mg PO HS [facility] Last Admin: 06/11/18 21:25 Dose: 80 mg Cinacalcet (Sensipar) 30 mg PO DIN [facility] Last Admin: 06/11/18 19:43 Dose: Not Given Docusate Sodium (Colace) 100 mg PO TID [facility] Last Admin: 06/12/18 09:39 Dose: Not Given Hydroxyzine HCl (Atarax) 25 mg PO Q8H PRN PRN Reason: Itching / Pruritus Aztreonam 500 mg/ Sodium (Chloride) 100 mls @ 100 mls/hr IVPB Q12H [facility]; Protocol Stop: 06/21/18 11:01 Last Admin: 06/12/18 10:00 Dose: 100 mls/hr Dopamine HCl/Dextrose (Dopamine 400mg/250ml D5w) 400 mg in 250 mls @ 16.074 mls/hr IV .[id number] PRN; Protocol PRN Reason: TITRATE TO KEEP SBP>=100 MMHG NOREPINEPHRINE BIT/0.9 % NACL (Levophed 4 Mg/ 250 Ml Ns Premixed) 4 mg in 250 mls @ 15 mls/hr IV .[id number] PRN; Protocol PRN Reason: TITRATE PER MD ORDER Vasopressin 20 units/ Sodium (Chloride) 101 mls @ 9.09 mls/hr IV .Q11H7M [facility]IS[facility]; Protocol Last Admin: 06/12/18 11:55 Dose: 9.09 mls/hr Heparin Sodium/Sodium Chloride (Heparin 74610 Units/250ml 1/2 Normal Saline) 25,000 units in 250 mls @ 15.431 mls/hr IV .[id number] PRN; Protocol PRN Reason: ADJUST RATE PER PROTOCOL Insulin Human Regular (Humulin R Low) 0 units SC ACHS [facility]; Protocol Last Admin: 06/12/18 08:52 Dose: Not Given Levothyroxine Sodium (Synthroid) 25 mcg PO 0600 [facility] Last Admin: 06/12/18 05:39 Dose: 25 mcg Lorazepam (Ativan) 2 mg IVP ONCE PRN; Protocol PRN Reason: Agitation Metronidazole (Flagyl) 500 mg PO Q8 [facility]; Protocol Stop: 06/18/18 14:01 Last Admin: 06/12/18 05:39 Dose: 500 mg Midodrine (Proamatine) 2.5 mg PO TID [facility] Last Admin: 06/12/18 07:40 Dose: 2.5 mg Ondansetron HCl (Zofran Inj) 4 mg IVP Q4H PRN PRN Reason: Nausea/Vomiting Pantoprazole Sodium (Protonix Ec Tab) 40 mg PO 0600 [facility] Last Admin: 06/12/18 05:40 Dose: 40 mg Sennosides (Senokot Tab) 17.2 mg PO HS [facility] Last Admin: 06/11/18 21:25 Dose: 17.2 mg Sevelamer HCl (Renagel) 800 mg PO TID [facility] Last Admin: 06/12/18 09:40 Dose: Not Given Silver Sulfadiazine (Silvadene 1% 25 Gm) 1 gm TP DAILY [facility]IS[facility] Vitamin B Complex/Vit C/Folic Acid (Nephro-Jose Miguel) 1 tab PO DAILY [facility] Last Admin: 06/12/18 09:39 Dose: Not Given - Labs Labs: 06/12/18 06:00 06/12/18 06:00 PT 16.5 SECONDS (9.4-12.5) H 06/11/18 02:55 INR 1.49 06/11/18 02:55 APTT 35.3 Seconds (26.9-38.3) 06/11/18 05:00
--- NOTE | 2018-06-12 15:41 | CP.PCM.PN ---
Subjective - Date & Time of Evaluation Date of Evaluation: 06/12/18 Time of Evaluation: 15:20 - Subjective Subjective: Patient was noted to be hypotensive this morning and [employer]ENTAL SALESPERSON was called, and the patient was sent to the ICU. Patient is now on vasopressor support, lethargic, no fevers. Objective - Vital Signs/Intake and Output Vital Signs (last 24 hours): Temp Pulse Resp BP Pulse Ox 97 F L 55 L 20 75/44 L 98 06/12/18 08:35 06/12/18 10:00 06/12/18 08:35 06/12/18 11:55 06/12/18 08:35 Intake and Output: 06/12/18 06/12/18 06:59 18:59 Intake Total 1140 Output Total 100 Balance 1040 - Medications Medications: Current Medications Acetaminophen (Tylenol 325mg Tab) 650 mg PO Q6 PRN PRN Reason: TEMP>=99.5F Last Admin: 06/11/18 12:02 Dose: 650 mg Acetaminophen (Tylenol 650 Mg Supp) 650 mg RC Q6H PRN PRN Reason: TEMP>=99.5F Acetaminophen (Tylenol 650 Mg Supp) 650 mg RC Q6H PRN PRN Reason: Headache Acetaminophen (Tylenol 325mg Tab) 650 mg PO Q6 PRN PRN Reason: Headache Last Admin: 06/12/18 00:58 Dose: 650 mg Atorvastatin Calcium (Lipitor) 80 mg PO HS REPLACED BY [facility] Last Admin: 06/11/18 21:25 Dose: 80 mg Cinacalcet (Sensipar) 30 mg PO DIN REPLACED BY [facility] Last Admin: 06/11/18 19:43 Dose: Not Given Docusate Sodium (Colace) 100 mg PO TID REPLACED BY [facility] Last Admin: 06/12/18 09:39 Dose: Not Given Hydroxyzine HCl (Atarax) 25 mg PO Q8H PRN PRN Reason: Itching / Pruritus Aztreonam 500 mg/ Sodium (Chloride) 100 mls @ 100 mls/hr IVPB Q12H REPLACED BY [facility]; Protocol Stop: 06/21/18 11:01 Last Admin: 06/12/18 10:00 Dose: 100 mls/hr Dopamine HCl/Dextrose (Dopamine 400mg/250ml D5w) 400 mg in 250 mls @ 16.074 mls/hr IV .[id number] PRN; Protocol PRN Reason: TITRATE TO KEEP SBP>=100 MMHG NOREPINEPHRINE BIT/0.9 % NACL (Levophed 4 Mg/ 250 Ml Ns Premixed) 4 mg in 250 mls @ 15 mls/hr IV .[id number] PRN; Protocol PRN Reason: TITRATE PER MD ORDER Vasopressin 20 units/ Sodium (Chloride) 101 mls @ 9.09 mls/hr IV .Q11H7M REPLACED BY [facility]; Protocol Last Admin: 06/12/18 11:55 Dose: 9.09 mls/hr Heparin Sodium/Sodium Chloride (Heparin 77702 Units/250ml 1/2 Normal Saline) 25,000 units in 250 mls @ 15.431 mls/hr IV .[id number] PRN; Protocol PRN Reason: ADJUST RATE PER PROTOCOL Insulin Human Regular (Humulin R Low) 0 units SC ACHS REPLACED BY [facility]; Protocol Last Admin: 06/12/18 08:52 Dose: Not Given Levothyroxine Sodium (Synthroid) 25 mcg PO 0600 REPLACED BY [facility] Last Admin: 06/12/18 05:39 Dose: 25 mcg Lorazepam (Ativan) 2 mg IVP ONCE PRN; Protocol PRN Reason: Agitation Metronidazole (Flagyl) 500 mg PO Q8 REPLACED BY [facility]; Protocol Stop: 06/18/18 14:01 Last Admin: 06/12/18 05:39 Dose: 500 mg Midodrine (Proamatine) 2.5 mg PO TID REPLACED BY [facility] Last Admin: 06/12/18 07:40 Dose: 2.5 mg Ondansetron HCl (Zofran Inj) 4 mg IVP Q4H PRN PRN Reason: Nausea/Vomiting Pantoprazole Sodium (Protonix Ec Tab) 40 mg PO 0600 REPLACED BY [facility] Last Admin: 06/12/18 05:40 Dose: 40 mg Sennosides (Senokot Tab) 17.2 mg PO HS REPLACED BY [facility] Last Admin: 06/11/18 21:25 Dose: 17.2 mg Sevelamer HCl (Renagel) 800 mg PO TID REPLACED BY [facility] Last Admin: 06/12/18 09:40 Dose: Not Given Silver Sulfadiazine (Silvadene 1% 25 Gm) 1 gm TP DAILY REPLACED BY [facility] Vitamin B Complex/Vit C/Folic Acid (Nephro-Jose Miguel) 1 tab PO DAILY REPLACED BY [facility] Last Admin: 06/12/18 09:39 Dose: Not Given - Labs Labs: 06/12/18 06:00 06/12/18 06:00 PT 16.5 SECONDS (9.4-12.5) H 06/11/18 02:55 INR 1.49 06/11/18 02:55 APTT 35.3 Seconds (26.9-38.3) 06/11/18 05:00 - Constitutional Appears: Chronically Ill - Head Exam Head Exam: NORMAL INSPECTION - Respiratory Exam Respiratory Exam: Decreased Breath Sounds - Cardiovascular Exam Cardiovascular Exam: +S1, +S2 - GI/Abdominal Exam GI & Abdominal Exam: Soft. absent: Tenderness Assessment and Plan - Assessment and Plan (Free Text) Plan: Assessment Hypotension, consider due to right sided heart failure right breast cellulitis obesity with BMI 31 ESRD on HD hypothyroidism DM dyslipidemia CAD S/P CABG S/P foot surgery Plan continue Azactam, Flagyl, gave a dose of Vancomycin and will start Daptomycin pending final culture results discussed with dr. Hall - patient may have right sided heart failure causing hypotension, patient being managed by ICU team will monitor clinically prognosis is guarded
[2018-06-12] MEDS ORDERED: DAPTOmycin 500 mg Inj (Cubicin) IV SCH (15:45)
[2018-06-12] MEDS: NOREPINEPHRINE BIT/0.9 % NACL 4 MG/250 ML BAG IV PRN (16:00)
--- NOTE | 2018-06-12 16:09 | CARD ---
APPROVED REPORT Date of service: 06/12/2018 EXAM: Two-dimensional and M-mode echocardiogram with Doppler and color Doppler. INDICATION Cardiac Disease: CAD CABG 2D DIMENSIONS Left Atrium (2D)4.5 (1.6-4.0cm)IVSd1.2 (0.7-1.1cm) LVDd4.3 (3.9-5.9cm)PWd1.2 (0.7-1.1cm) LVDs2.8 (2.5-4.0cm)FS (%) 34.2 % LVEF (%)63.5 (>50%) M-Mode DIMENSIONS Aortic Root2.90 (2.2-3.7cm)Aortic Cusp Exc.1.50 (1.5-2.0cm) Aortic Valve AoV Peak Yusmopaq813.0cm/Kaley Peak GR.9mmHg Mitral Valve MV E Jpagkmak01.3cm/sMV A Vpwpmhtv47.5cm/sE/A ratio2.6 TDI Lateral E' Peak V8.68cm/sE/Lateral E'10.9E/Medial E'0.0 Pulmonary Valve PV Peak Erwnhtbd33.4cm/sPV Peak Grad.1mmHg Tricuspid Valve TR Peak Sxsakyda757lp/sRAP [id number] Peak Gr.10mmHg [id number] LEFT VENTRICLE The left ventricle is normal size. There is mild concentric left ventricular hypertrophy. The left ventricular function is normal.EF-60 -65% There is normal LV segmental wall motion. Transmitral Doppler flow pattern is Grade II-pseudonormal filling dynamics. No left ventricle thrombus noted on this study. There is no ventricular septal defect visualized. There is no left ventricular aneurysm. There is no mass noted in the left ventricle. RIGHT VENTRICLE The right ventricle is severely dilated. There is normal right ventricular wall thickness. Systolic function of RV is moderately reduced. ATRIA The left atrium is mildly dilated. The right atrium is mildly dilated. The interatrial septum is intact with no evidence for an atrial septal defect. AORTIC VALVE The aortic valve is thickened but opens well. There is trace aortic regurgitation. There is no aortic valvular stenosis. There is no aortic valvular vegetation. MITRAL VALVE The mitral valve is thickened but opens well. Mitral annular calcification is mild. Mitral regurgitation is moderate to severe., eccentric jet posteriorly directed. There is no mitral valve stenosis. There is no evidence of mitral valve prolapse. TRICUSPID VALVE The tricuspid valve leaflets are thickened , but open well. There is severe tricuspid regurgitation. Measured RVSP-17 mmof Hg is severe underestimating due to ciofiguration of TR JET. There is no tricuspid valve stenosis. There is no tricuspid valve prolapse or vegetation. PULMONIC VALVE The pulmonic valve is mildly thickened. There is trivialpulmonic valvular regurgitation. There is no pulmonic valvular stenosis. GREAT VESSELS The aortic root is normal in size. The ascending aorta is normal in size. The pulmonary artery is normal. The IVC was not visualized. PERICARDIAL EFFUSION There is no pleural effusion. There is no pericardial effusion. <Conclusion> The left ventricle is normal size. There is mild concentric left ventricular hypertrophy. The left ventricular function is normal.EF-60 -65% The right ventricle is severelyy dilated. Systolic function of RV is moderately reduced. There is trace aortic regurgitation. Mitral regurgitation is moderate to severe., eccentric jet posteriorly directed. There is severe tricuspid regurgitation. Measured RVSP-17 mmof Hg is severe underestimating due to ciofiguration of TR JET. There is no pericardial effusion. The IVC was not visualized.
[2018-06-12 16:40] LABS: BASO # 0.01 K/mm3 (0.0-2.0); BASO % 0.1 % (0.0-3.0); EOS % 0.4 % (1.5-5.0); HEMOGLOBIN 9.9 g/dL (12.0-16.0); LYMPH # 0.6 (1.2-3.4); LYMPH % 8.2 % (22.0-35.0); MEAN CORPUSCULAR HEMOGLOBIN 30.2 pg (25.0-35.0); MEAN CORPUSCULAR HGB CONC 32.5 g/dl (31.0-37.0); MEAN PLATELET VOLUME 10.3 fl (7.0-11.0); MONO # 0.4 (0.1-0.6); MONO % 4.6 % (1.0-6.0); RBC 3.28 10^6/uL (3.5-6.1); RED CELL DISTRIBUTION WIDTH 17.7 % (11.5-14.5); WHITE BLOOD COUNT 7.6 10^3/uL (4.5-11.0)
[2018-06-12] MEDS ORDERED: Sodium Bicarbonate (8.4%) 50 Meq Syringe IVP ONE (16:52)
[2018-06-12] MEDS ORDERED: Sodium Bicarbonate (8.4%) 50 Meq Syringe IVP PRN (16:53)
[2018-06-12 16:55] LABS: ALBUMIN 3.9 g/dL (3.0-4.8); CALCIUM 8.3 mg/dL (8.4-10.5)
--- NOTE | 2018-06-12 17:00 | PN ---
DATE: 06/12/2018 SUBJECTIVE: The patient had an BLANKET WEAVER earlier this morning. Rapid response was called for hypotension and lethargy. The patient received her pain medications and benzodiazepines. The patient was found to be hypotensive, BLANKET WEAVER was called. The patient was seen immediately after the BLANKET WEAVER. The patient is lying in the bed in room 365 bed one. The patient is responsive to loud verbal and painful stimuli. T max is 97. Telemetry shows junctional rhythm, blood pressure is 85/39, respiration 20, O2 sat was 98%. According to the BLANKET WEAVER notes, the patient's blood pressure was 67/50. PHYSICAL EXAMINATION: GENERAL: The patient is lying in the bed. HEENT: Head is normocephalic, atraumatic. HEENT examination shows pale conjunctivae, no oropharyngeal lesion. NECK: No neck rigidity. CHEST: Examination showed medium sternotomy surgical scar. Positive left upper chest defibrillator pacemaker noted. Positive induration and swelling of the right breast noted. CARDIOVASCULAR: Shows S1, S2. Questionable soft systolic murmur left sternal border, right second intercostal space, left second intercostal space. LUNGS: Shows occasional rhonchi in the upper lung reyes. ABDOMEN: Protuberant. Positive bowel sound. No palpable hepatosplenomegaly. GENITALIA: Female. RECTAL: Deferred. EXTREMITIES: Shows trace swelling of the lower extremity. No pitting edema. DIAGNOSTICS: 06/12/2018, WBC 5.3, hemoglobin/hematocrit 8.7/27.3, platelet 80,000, granulocytes 73. Sodium 138, potassium 4.8, chloride 101, CO2 29, anion gap 14, BUN 41, creatinine 9.5, GFR 5, fingerstick blood sugar 147, 135, 129, 198. Calcium 7.9, phosphorus 3.8, magnesium 2.9, total bili direct bili 1.51 and 1.2, alk phos 128. Troponin is 0.09. Blood cultures negative. The patient received 1 unit of PRBC. EKG was done during the BLANKET WEAVER, results were reviewed, which shows questionable junctional escape rhythm versus atrial fibrillation with intermittent paced rhythm and right bundle-branch block changes. IMPRESSION AND PLAN: 1. Status post registered respiratory therapy. 2. Severe symptomatic hypotension with symptoms of lethargy and decreased responsiveness. 3. End-stage renal disease, hemodialysis dependent. 4. Automatic implantable cardioverter-defibrillator implant. 5. Coronary artery disease and coronary artery bypass graft. 6. Questionable atrial fibrillation versus junctional escape rhythm. 7. Right bundle-branch block pattern. 8. Right breast and right anterior chest wall cellulitis. 9. 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 10. Right fifth metatarsal bone atrophy and post-traumatic post infectious changes. 11. Right foot first and second metatarsal bone, old healed fracture, and degenerative joint disease of the right foot. 12. Pes planus. 13. Diffuse osteopenia and osteoporosis. 14. Coronary artery disease, coronary angioplasty, coronary artery bypass graft. 15. Hyperparathyroidism. 16. Chronic back pain and questionable narcotic dependent pain syndrome. 17. Diabetic foot disease. 18. Hypothyroidism. 19. Status post permanent pacemaker implant. 20. Atrial fibrillation with slow ventricular response. 21. Normocytic anemia with granulocytosis. 22. Elevated erythrocyte sedimentation rate. 23. Well-controlled diabetes mellitus with hemoglobin A1c of 6.1. 24. Hyperbilirubinemia. 25. Indeterminate troponin. 26. Hypovitaminosis D. 27. Uncontrolled diabetes mellitus with fructosamine of and hemoglobin A1c of 6.1. 28. Possible iron-deficiency anemia of chronic disease. 29. Secondary hyperparathyroidism. 30. Elevated C-reactive protein, no greater than 15. 31. Possible iron-deficiency anemia of chronic kidney disease. 32. Mild hyperbilirubinemia. 33. Status post packed red blood cell transfusion x1. 34. Hypotension. PLAN: Plan at this time, after the BLANKET WEAVER, the patient is now being transferred to ICU. The patient has been ordered to be transferred to ICU. The patient's all the narcotic pain medications have been stopped at this time. The patient had blood cultures done. Current consultation Cardiology, Infectious Disease, Nephrology, Podiatry, . The patient has been typed and crossmatch. The patient is currently on Atarax 25 mg p.o. every 8 hours p.r.n., Azactam 500 IV every 12 hours, Colace 100 mg three times a day, Flagyl 500 p.o. every 8 hours, heparin 5000 subcu every 8 hours, Humulin low-dose sliding scale coverage, Lipitor 80 mg daily Nephro-Jose Miguel 1 tablet daily, ProAmatine 2.5 mg three times a day, Protonix 40 mg daily, Renagel 800 mg three times a day, Senokot 17.2 mg daily, Sensipar 30 mg daily, Silvadene cream to the affected area. The patient received a bolus of IV fluid during the BLANKET WEAVER, Synthroid 25 mcg daily, Tylenol p.r.n., Valium discontinued. The patient was given a dose of vancomycin yesterday 500 mg, Zofran 4 IV every 4 hours. The patient is awaiting MRI of the lumbar spine. CT head stat was ordered. The patient's EKG, repeat an echo with Doppler is pending. The patient is presently on n.p.o. The patient's blood pressure is still, when I examined the patient prior to transfer to ICU, the patient's blood pressure was 67/45. The patient will be started on dopamine drip. For further management at this time to optimize blood pressure and heart rate and heart rhythm. Time spent is more than 35 minutes. Jimy Simeon MD
[2018-06-12 17:26] LABS: TROPONIN I 0.14 ng/mL
[2018-06-12] MEDS: DAPTOmycin 510 MG in Sodium Chloride 0.9% 100 ML IV SCH (18:05)
--- NOTE | 2018-06-12 18:08 | RAD ---
Date of service: 06/12/2018 HISTORY: CVL placement eval COMPARISON: 06/12/2018 FINDINGS: LUNGS: No active pulmonary disease. PLEURA: No significant pleural effusion identified, no pneumothorax apparent. CARDIOVASCULAR: Atherosclerotic calcifications identified primarily aortic arch. Venous access catheter in satisfactory position. Position/ configuration of pacemaker Cardiomegaly. No evidence of acute, significant cardiovascular disease. OSSEOUS STRUCTURES: No significant abnormalities. VISUALIZED UPPER ABDOMEN: Normal. OTHER FINDINGS: None. IMPRESSION: Satisfactory position of recently placed right internal jugular catheter. No pneumothorax identified. Otherwise no interval change.
--- NOTE | 2018-06-12 18:44 | PN ---
DATE: 06/12/2018 SUBJECTIVE: The patient is in the ICU after hypotensive episode. PHYSICAL EXAMINATION: GENERAL: She is awake, dialing telephone, mildly and confused. VITAL SIGNS: Blood pressure is 85/40, heart rates in the 50s. Physical exam was not possible due to the patient's lack of cooperation. LABORATORY DATA: Hemoglobin is 8.7. Potassium is 4.8. IMPRESSION: 1. Hypotension. 2. End-stage renal disease. 3. History of percutaneous transluminal coronary angioplasty and stent. 4. Cardiomyopathy. 5. Anemia. 6. Diabetes mellitus. Given these findings, the patient would appear not to be able to take anticoagulation safely given her mild confusion. We will obtain an echocardiogram to evaluate her LV function. Chan Berman MD
[2018-06-12 23:08] LABS: PROTHROMBIN TIME 17.8 SECONDS (9.4-12.5)
[2018-06-13 00:44] LABS: PARTIAL THROMBOPLASTIN TIME > 400.0 Seconds (26.9-38.3)
[2018-06-13] MEDS: Pantoprazole 40 mg EC Tab PO SCH (06:37)
[2018-06-13] MEDS: Levothyroxine 25 MCG TAB PO SCH (06:38)
[2018-06-13 06:56] LABS: ALB/GLOB RATIO 1.1 (1.1-1.8); ALBUMIN 4.2 g/dL (3.0-4.8); BILIRUBIN,DIRECT 1.9 mg/dL (0.0-0.4); CALCIUM 8.5 mg/dL (8.4-10.5)
[2018-06-13 07:19] LABS: BASO # 0.01 K/mm3 (0.0-2.0); BASO % 0.1 % (0.0-3.0); HEMOGLOBIN 9.4 g/dL (12.0-16.0); LYMPH # 0.7 (1.2-3.4); LYMPH % 4.3 % (22.0-35.0); MEAN CELL VOLUME 95.5 fl (80.0-105.0); MEAN CORPUSCULAR HEMOGLOBIN 29.9 pg (25.0-35.0); MEAN CORPUSCULAR HGB CONC 31.3 g/dl (31.0-37.0); MEAN PLATELET VOLUME 10.9 fl (7.0-11.0); MONO # 0.7 (0.1-0.6); MONO % 4.4 % (1.0-6.0); PLATELET COUNT 115 10^3/uL (120.0-450.0); RBC 3.14 10^6/uL (3.5-6.1); WHITE BLOOD COUNT 15.9 10^3/uL (4.5-11.0)
[2018-06-13] MEDS: DOBUTamine 500mg/250ml D5W 500 MG/250 ML BAG IV PRN (07:47)
[2018-06-13 08:15] LABS: BAND 2 % (0-2); LYMPHOCYTE 6 % (22.0-35.0); MONOCYTE 2 % (1.0-6.0); NEUTROPHIL 90 % (50.0-70.0)
[2018-06-13 08:16] LABS: PLATELET ESTIMATE LOW (NORMAL)
[2018-06-13 08:20] LABS: PLATELET COUNT MANUAL 140 K/mm3 (120-450)
[2018-06-13 08:46] LABS: ARTERIAL BLOOD GAS HCO3 15.1 mmol/L (21-28); ARTERIAL BLOOD GAS O2 SAT 97.7 % (95-98); ARTERIAL BLOOD GAS PCO2 30 mm/Hg (35-45); ARTERIAL BLOOD GAS PH 7.31 (7.35-7.45)
--- NOTE | 2018-06-13 10:13 | CP.PCM.PN ---
Subjective - Date & Time of Evaluation Date of Evaluation: 06/13/18 Time of Evaluation: 10:05 - Subjective Subjective: Patient became agitated this morning, now with NGT with dark, melanotic fluid coming out. No fevers overnight, had 2 soft BM's this morning. Objective - Vital Signs/Intake and Output Vital Signs (last 24 hours): Temp Pulse Resp BP Pulse Ox 97 F L 55 L 20 75/44 L 98 06/12/18 08:35 06/12/18 10:00 06/12/18 08:35 06/12/18 11:55 06/12/18 08:35 Intake and Output: 06/12/18 06/12/18 06:59 18:59 Intake Total 1140 Output Total 100 Balance 1040 - Medications Medications: Current Medications Acetaminophen (Tylenol 325mg Tab) 650 mg PO Q6 PRN PRN Reason: TEMP>=99.5F Last Admin: 06/11/18 12:02 Dose: 650 mg Acetaminophen (Tylenol 650 Mg Supp) 650 mg RC Q6H PRN PRN Reason: TEMP>=99.5F Acetaminophen (Tylenol 650 Mg Supp) 650 mg RC Q6H PRN PRN Reason: Headache Acetaminophen (Tylenol 325mg Tab) 650 mg PO Q6 PRN PRN Reason: Headache Last Admin: 06/12/18 00:58 Dose: 650 mg Atorvastatin Calcium (Lipitor) 80 mg PO HS [facility] Last Admin: 06/11/18 21:25 Dose: 80 mg Cinacalcet (Sensipar) 30 mg PO DIN [facility] Last Admin: 06/11/18 19:43 Dose: Not Given Daptomycin (Cubicin) 510 mg 6 mg/kg (510 mg) IV QOTHERDAY [facility]; Protocol Stop: 06/17/18 15:46 Docusate Sodium (Colace) 100 mg PO TID [facility] Last Admin: 06/12/18 09:39 Dose: Not Given Hydroxyzine HCl (Atarax) 25 mg PO Q8H PRN PRN Reason: Itching / Pruritus Aztreonam 500 mg/ Sodium (Chloride) 100 mls @ 100 mls/hr IVPB Q12H [facility]; Protocol Stop: 06/21/18 11:01 Last Admin: 06/12/18 10:00 Dose: 100 mls/hr Dopamine HCl/Dextrose (Dopamine 400mg/250ml D5w) 400 mg in 250 mls @ 16.074 mls/hr IV .[id number] PRN; Protocol PRN Reason: TITRATE TO KEEP SBP>=100 MMHG NOREPINEPHRINE BIT/0.9 % NACL (Levophed 4 Mg/ 250 Ml Ns Premixed) 4 mg in 250 mls @ 15 mls/hr IV .[id number] PRN; Protocol PRN Reason: TITRATE PER MD ORDER Vasopressin 20 units/ Sodium (Chloride) 101 mls @ 9.09 mls/hr IV .[id number] [facility]; Protocol Last Admin: 06/12/18 11:55 Dose: 9.09 mls/hr Heparin Sodium/Sodium Chloride (Heparin 88624 Units/250ml 1/2 Normal Saline) 25,000 units in 250 mls @ 15.431 mls/hr IV .[id number] PRN; Protocol PRN Reason: ADJUST RATE PER PROTOCOL Insulin Human Regular (Humulin R Low) 0 units SC ACHS [facility]; Protocol Last Admin: 06/12/18 08:52 Dose: Not Given Levothyroxine Sodium (Synthroid) 25 mcg PO 0600 [facility] Last Admin: 06/12/18 05:39 Dose: 25 mcg Lorazepam (Ativan) 2 mg IVP ONCE PRN; Protocol PRN Reason: Agitation Metronidazole (Flagyl) 500 mg PO Q8 [facility]; Protocol Stop: 06/18/18 14:01 Last Admin: 06/12/18 05:39 Dose: 500 mg Midodrine (Proamatine) 2.5 mg PO TID [facility] Last Admin: 06/12/18 07:40 Dose: 2.5 mg Ondansetron HCl (Zofran Inj) 4 mg IVP Q4H PRN PRN Reason: Nausea/Vomiting Pantoprazole Sodium (Protonix Ec Tab) 40 mg PO 0600 [facility] Last Admin: 06/12/18 05:40 Dose: 40 mg Sennosides (Senokot Tab) 17.2 mg PO HS [facility] Last Admin: 06/11/18 21:25 Dose: 17.2 mg Sevelamer HCl (Renagel) 800 mg PO TID [facility] Last Admin: 06/12/18 09:40 Dose: Not Given Silver Sulfadiazine (Silvadene 1% 25 Gm) 1 gm TP DAILY [facility] Vitamin B Complex/Vit C/Folic Acid (Nephro-Jose Miguel) 1 tab PO DAILY [facility] Last Admin: 06/12/18 09:39 Dose: Not Given - Labs Labs: 06/12/18 06:00 06/12/18 06:00 PT 16.5 SECONDS (9.4-12.5) H 06/11/18 02:55 INR 1.49 06/11/18 02:55 APTT 35.3 Seconds (26.9-38.3) 06/11/18 05:00 - Constitutional Appears: Chronically Ill - Head Exam Head Exam: NORMAL INSPECTION - ENT Exam Additional comments: NGT in place - Respiratory Exam Respiratory Exam: Decreased Breath Sounds - Cardiovascular Exam Cardiovascular Exam: +S1, +S2 - GI/Abdominal Exam GI & Abdominal Exam: Soft. absent: Tenderness Assessment and Plan - Assessment and Plan (Free Text) Plan: Assessment Hypotension, consider due to right sided heart failure, consider GI bleeding right breast cellulitis obesity with BMI 31 ESRD on HD hypothyroidism DM dyslipidemia CAD S/P CABG S/P foot surgery Plan continue Azactam, Flagyl, and Daptomycin day 3 pending final culture results discussed with dr. Hall - patient may have right sided heart failure causing hypotension, patient being managed by ICU team will monitor clinically prognosis is guarded follow up ICU work up for possible GI bleeding
--- NOTE | 2018-06-13 10:56 | CARD ---
APPROVED REPORT Date of service: 06/13/2018 EKG Measurement Heart [id number] <Conclusion> Possible A fib wirh RBBB occasional premature ventricular complexes Left axis deviation Nonspecific intraventricular block Inferior infarct, age undetermined Anterolateral infarct, age undetermined Abnormal ECG base line arteface, please repeat.
[2018-06-13] MEDS: Pantoprazole 40mg/100mL NS 40 MG/100 ML BAG IVPB SCH ×3 (11:09→22:57)
[2018-06-13] MEDS: Multivitamin Vitamin B Complex (Nephro-Vite) Tab PO SCH (11:10)
--- NOTE | 2018-06-13 11:10 | CARD ---
APPROVED REPORT Date of service: 06/12/2018 EKG Measurement Heart [id number] <Conclusion> Normal sinus rhythm Left atrial enlargemen First degree AV block RBBB ST T changes Can not R/o Acute OH, corelate clinically Abnormal ECG
--- NOTE | 2018-06-13 11:12 | CARD ---
APPROVED REPORT Date of service: 06/12/2018 EKG Measurement Heart [id number] <Conclusion> NSR first degree AV block Right bundle branch block Left anterior fascicular block TRI-fascicular block T wave abnormality, consider lateral ischemia, corelate clinically. Abnormal ECG
--- NOTE | 2018-06-13 11:28 | PN ---
DATE: 06/13/2018 SUBJECTIVE: The patient was seen and examined at the bedside. She is somnolent, however, easily arousable. She appears to be more oriented today, however, still poorly communicative. She is not in respiratory or otherwise distress and appears to be comfortable. PHYSICAL EXAMINATION: VITAL SIGNS: Blood pressure 123/85, oxygen saturation 98% on 2 liters nasal cannula, respiratory rate 18, heart rate 83. ENT: Head and neck atraumatic. LUNGS: Clear to auscultation bilaterally. HEART: Regular rate and rhythm. S1 and S2 normal. ABDOMEN: Soft, nontender, nondistended. MUSCULOSKELETAL: Trace bilateral pedal and ankle edema. NEURO: The patient was seen moving all extremities spontaneously. SKIN: Moist. PSYCH: Patient somnolent, easily arousable, comfortable, appears to be a little bit more oriented. LABORATORY DATA: WBC 15.9, hemoglobin 9.4 (it was relatively stable from 9.9), platelet count 115 (heparin continued). Sodium 140, potassium 5.4, chloride 101, carbon dioxide 19, BUN 47, creatinine 10.3 (the patient is on chronic hemodialysis), glucose 186, total bilirubin 2.2, AST 33, ALT 23, ammonia level 28. PTT more than 400 (heparin is on hold). EKG showed QTc of 468, QRS 40 milliseconds, normal sinus rhythm. EKG without significant change compared with yesterday except for shortening of QRS and QTc intervals. MEDICATIONS: Tylenol p.r.n., Lipitor 80 mg p.o. h.s., Aztreonam, Sensipar, daptomycin, dobutamine, Colace, heparin drip, hydrocortisone 50 mg IV every 6 hours, hydroxyzine p.r.n., regular insulin sliding scale low protocol, Synthroid, Ativan p.r.n., Flagyl p.o., midodrine 2.5 mg p.o. t.i.d., norepinephrine, Protonix, Zofran p.r.n. (last QTc less than 500), Renagel, vasopressin, vitamin D. ASSESSMENT AND PLAN: This is a 67-year-old lady with a new onset of acute right ventricular failure of unclear etiology, however, VTE is highly suspicious. The patient was anticoagulated for paroxysmal atrial fibrillation which will also cover possibility of pulmonary embolism. The patient is on dobutamine and norepinephrine 7 mcg per minute, vasopressin 0.03 units per minute, and stress-dosed steroids. Antibiotics were adjusted by ID service and include aztreonam and daptomycin (patient has GPC bacteremia). We will proceed with venous Doppler of lower extremities to rule out deep vein thrombosis. When the patient is a little bit more cooperative in terms of her mental status, we will consider to proceed with chest CT with PE protocol. We will coordinate that with Nephrology service to have her dialyzed afterward. We will continue to correct her electrolytes. Nephrology service is on board. I discussed therapeutic anticoagulation in the setting of mild thrombocytopenia with Dr. Wylie yesterday. It appears that the risks of not proceeding with therapeutic anticoagulation currently overweigh risks associated with therapeutic anticoagulation itself. Dr. Wylie will also address findings of lytic lesions in the bone suspicious for multiple myeloma. We will continue to target euvolemia, euglycemia, normothermia and oxygen saturation more than 92%. We will continue with deep vein thrombosis and gastrointestinal prophylaxis. Addendum: NGT was placed by RN for PO meds-->yoana blood observed-->heparin was stopped, protonix drip started, NPO status endorsed and CBC q 4hrs ordered. Dr. Terry was called for consult for consideration of UGE or to forego thereof (Kayli Garibay et al Annals of Intensive Care, 2018). Later in the day, bloody output became more coffee-ground like and slowed down, Hb 9.4 from 8.9 (without any PRBC transfusion). Patient tolerated HD, even though had to go up on NE a bit. 1L of fluid was removed, which may help to unload RV, dobutamine 2.5 mcg/kg/min continued. Will start taper NE down again. Will re-eval and if need be will give small boluses of iso-oncotic albumin back. ABG after HD showed compensated metabolic acidosis (7.4/30/83 on 2L NC) with LA down from 10 to 6.3. As mental status was of concern-->EEG, CTH ordered, Dr. Dorman saw patient at bedside and reviewed recorded EEG-->no seizures, but slowing. By then patient was moving all extremities, however agitated and confused, likely ICU/critical illness delirium/septic encephalopathy-->will hold on CTH (not safe for intrahospital transfer), but will start precedex (Marina et alessio, [facility], 2018), optimize sleep and circadian patterns, frequent re-orientation. spoke with patient's niece at bedside. ccm time 40 min Chavez Hall MD MTDMaria De Jesus
--- NOTE | 2018-06-13 11:49 | CP.CCUPN ---
<Laurie Bain - Last Filed: 06/13/18 12:34> CCU Subjective - Physician Review Subjective (Free Text): 06/13/18 11:46 Laurie Bain, PGY 1 Critical Care Progress Note Patient seen and examined at bedside this morning. BP overnight noted with a low of 86/57. Patient remains alert and combative and poorly responds to commands. Currently on levophed, vasopressin and dobutamine drips with stable blood pressure. Plan for HD today. Will continue antibiotics for possible septic shock. 12 point ROS unobtainable due to patient status. CCU Objective - Vital Signs / Intake & Output Vital Signs (Last 4 hours): Vital Signs Pulse BP 06/13/18 07:47 83 123/85 Intake and Output (Last 8hrs): Intake & Output 06/12/18 06/13/18 06/13/18 22:59 06:59 14:59 Intake Total 50 200 Balance 50 200 Intake: IV 50 200 - Physical Exam Head: Positive for: Atraumatic, Normocephalic, Other (moderate edema to face) Pupils: Positive for: PERRL Extroacular Muscles: Positive for: EOMI Conjunctiva: Positive for: Normal Mouth: Positive for: Moist Mucous Membranes Pharnyx: Positive for: Other (NG tube draining dark red fluid ) Neck: Positive for: Normal Range of Motion Respiratory/Chest: Positive for: Clear to Auscultation, Good Air Exchange. Negative for: Respiratory Distress, Accessory Muscle Use Cardiovascular: Positive for: Regular Rate and Rhythm, Normal S1, S2. Negative for: Murmurs Abdomen: Negative for: Tenderness, Distention, Peritoneal Signs Breast/Axillary: Positive for: Erythema (+erythema to the R breast proximal to the nipple with induration without palpable mass or abscess). Negative for: Axillary Lymphad, Discoloration, Fluctuance, Masses, Nipple Discharge, Swelling, Symmetrical, Tender to Palpation Back: Positive for: Normal Inspection Upper Extremity: Positive for: Normal Inspection. Negative for: Cyanosis, Edema Lower Extremity: Positive for: Edema (non-pitting) Neurological: Positive for: GCS=15, Motor Func Grossly Intact, Other (moving extremities spontaneously past midline) Skin: Positive for: Warm, Dry, Normal Color. Negative for: Rashes Psychiatric: Positive for: Alert - Medications Active Medications: Active Medications Generic Name Dose Route Start Last Admin Trade Name Freq PRN Reason Stop Dose Admin Acetaminophen 650 mg 06/11/18 02:36 06/11/18 12:02 Tylenol 325mg Tab PO 650 mg Q6 PRN Administration TEMP>=99.5F Acetaminophen 650 mg 06/11/18 02:36 Tylenol 650 Mg Supp RC Q6H PRN TEMP>=99.5F Acetaminophen 650 mg 06/11/18 02:41 Tylenol 650 Mg Supp RC Q6H PRN Headache Acetaminophen 650 mg 06/11/18 02:42 06/12/18 00:58 Tylenol 325mg Tab PO 650 mg Q6 PRN Administration Headache Atorvastatin Calcium 80 mg 06/11/18 22:00 06/12/18 22:35 Lipitor PO Not Given HS RAISSA Cinacalcet 30 mg 06/11/18 02:45 06/12/18 19:58 Sensipar PO Not Given DIN RAISSA Docusate Sodium 100 mg 06/11/18 10:00 06/13/18 11:03 Colace PO Not Given TID RAISSA Hydrocortisone Sodium Succinate 50 mg 06/12/18 17:30 06/13/18 06:38 Solu-Cortef IVP 50 mg Q6H RAISSA Administration Hydroxyzine HCl 25 mg 06/11/18 02:37 Atarax PO Q8H PRN Itching / Pruritus Aztreonam 500 mg/ Sodium 100 mls @ 100 mls/hr 06/11/18 11:00 06/13/18 11:01 Chloride IVPB 06/21/18 11:01 100 mls/hr Q12H RAISSA Administration Protocol Dopamine HCl/Dextrose 400 mg in 250 mls @ 16.074 mls/hr 06/12/18 11:19 Dopamine 400mg/250ml D5w IV .[id number] PRN TITRATE TO KEEP SBP>=100 MMHG Protocol 5 MCG/KG/MIN NOREPINEPHRINE BIT/0.9 % NACL 4 mg in 250 mls @ 15 mls/hr 06/12/18 11:26 06/13/18 08:01 Levophed 4 Mg/ 250 Ml Ns Premixed IV 7 mcg/min .[id number] PRN 26.25 mls/hr TITRATE PER MD ORDER Titration Protocol 4 MCG/MIN Vasopressin 20 units/ Sodium 101 mls @ 9.09 mls/hr 06/12/18 11:30 06/12/18 22:34 Chloride IV 9.09 mls/hr .[id number] RAISSA Administration Protocol 0.03 U/MIN Daptomycin 510 mg/ Sodium 100 mls @ 200 mls/hr 06/12/18 16:00 06/12/18 18:05 Chloride IV 06/17/18 16:01 200 mls/hr QOTHERDAY RAISSA Administration Dobutamine HCl/Dextrose 500 mg in 250 mls @ 5.144 mls/hr 06/12/18 16:04 06/13/18 07:47 Dobutamine/Dextrose 5% 500mg/250ml IV 2 mcg/kg/min .Q24H PRN 5.144 mls/hr TITRATE PER PROTOCOL Administration Protocol 2 MCG/KG/MIN Pantoprazole Sodium 40 mg in 100 mls @ 20 mls/hr 06/13/18 10:30 06/13/18 11:09 Protonix 40mg Ivpb IVPB 20 mls/hr .Q5H RAISSA Administration Insulin Human Regular 0 units 06/11/18 07:30 06/12/18 22:08 Humulin R Low SC Not Given ACHS [facility] Protocol Levothyroxine Sodium 25 mcg 06/12/18 06:00 06/13/18 06:38 Synthroid PO Not Given 0600 [facility] Lorazepam 2 mg 06/12/18 14:35 06/12/18 19:56 Ativan IVP 2 mg ONCE PRN Administration Agitation Protocol Metronidazole 500 mg 06/11/18 14:00 06/12/18 22:36 Flagyl PO 06/18/18 14:01 Not Given Q8 [facility] Protocol Midodrine 2.5 mg 06/11/18 10:00 06/13/18 11:19 Proamatine PO 2.5 mg TID RAISSA Administration Ondansetron HCl 4 mg 06/11/18 02:36 Zofran Inj IVP Q4H PRN Nausea/Vomiting Pantoprazole Sodium 40 mg 06/11/18 06:00 06/13/18 06:37 Protonix Ec Tab PO Not Given 0600 [facility] Sennosides 17.2 mg 06/11/18 22:00 06/12/18 22:35 Senokot Tab PO Not Given HS [facility] Sevelamer HCl 800 mg 06/11/18 10:00 06/13/18 11:10 Renagel PO 800 mg TID RAISSA Administration Silver Sulfadiazine 1 gm 06/11/18 10:00 Silvadene 1% 25 Gm TP DAILY RAISSA Sodium Bicarbonate 50 meq 06/12/18 16:53 Sodium Bicarbonate 8.4% (50 Meq) Syringe IVP ONCE PRN Other Vitamin B Complex/Vit C/Folic Acid 1 tab 06/11/18 10:00 06/13/18 11:10 Nephro-Jose Miguel PO 1 tab DAILY RAISSA Administration - Patient Studies Lab Studies: Microbiology Studies 06/12/18 08:50 Blood Culture - Preliminary Blood-Venous Gram Positive Cocci Gram Stain - Final 06/12/18 08:30 Blood Culture - Preliminary Blood-Venous Gram Positive Cocci Gram Stain - Final 06/10/18 23:15 Blood Culture - Preliminary Blood NO GROWTH AFTER 48 HOURS 06/10/18 22:45 Blood Culture - Preliminary Blood NO GROWTH AFTER 48 HOURS Lab Studies 06/13/18 06/13/18 06/13/18 Range/Units 08:40 07:40 05:40 WBC (4.5-11.0) 10^3/uL RBC (3.5-6.1) 10^6/uL Hgb (12.0-16.0) g/dL Hct (36.0-48.0) % MCV (80.0-105.0) fl MCH (25.0-35.0) pg MCHC (31.0-37.0) g/dl RDW (11.5-14.5) % Plt Count (120.0-450.0) 10^3/uL Manual Plt Count (120-450) K/mm3 MPV (7.0-11.0) fl Neut % (Auto) (50.0-68.0) % Lymph % (Auto) (22.0-35.0) % [place] % (Auto) (1.0-6.0) % Eos % (Auto) (1.5-5.0) % Baso % (Auto) (0.0-3.0) % Lymph # (Auto) (1.2-3.4) [place] # (Auto) (0.1-0.6) Eos # (Auto) (0.0-0.7) Baso # (Auto) (0.0-2.0) K/mm3 Absolute Neuts (auto) (1.4-6.5) Neutrophils % (Manual) (50.0-70.0) % Band Neutrophils % (0-2) % Lymphocytes % (Manual) (22.0-35.0) % Monocytes % (Manual) (1.0-6.0) % Platelet Evaluation (NORMAL) PT (9.4-12.5) SECONDS INR APTT > 400.0 H* (26.9-38.3) Seconds pCO2 30 L (35-45) mm/Hg pO2 90.0 (80-100) mm/Hg HCO3 15.1 L (21-28) mmol/L ABG pH 7.31 L (7.35-7.45) ABG Total CO2 16.0 L (22-28) mmol.L ABG O2 Saturation 97.7 (95-98) % ABG Base Excess -9.8 L (-2.0-3.0) mmol/L ABG Potassium 4.5 (3.6-5.2) mmol/L Glucose 173 H (65-105) mg/dl Lactate 7.3 H* (0.7-2.1) mmol/L FiO2 21.0 % Crit Value Called To Dr alcaraz Crit Value Called By Fred schroeder Blood Gas Notified Time 2145 Sodium 143.0 (132-148) mmol/L Potassium (3.6-5.0) mmol/L Chloride 106.0 (98-107) mmol/L Carbon Dioxide (21-33) mmol/L Anion Gap (10-20) BUN (7-21) mg/dL Creatinine (0.7-1.2) mg/dl Est GFR ( Amer) Est GFR (Non-Af Amer) Random Glucose (70-110) mg/dL Lactic Acid (0.7-2.1) mmol/L Calcium (8.4-10.5) mg/dL Phosphorus (2.5-4.5) mg/dL Magnesium (1.7-2.2) mg/dL Total Bilirubin (0.2-1.3) mg/dL Direct Bilirubin (0.0-0.4) mg/dL AST (14-36) U/L ALT (7-56) U/L Alkaline Phosphatase (38-126) U/L Ammonia (9-33) umol/L Total Creatine Kinase (35-230) U/L Troponin I 0.12 ng/mL Total Protein (5.8-8.3) g/dL Albumin (3.0-4.8) g/dL Globulin gm/dL Albumin/Globulin Ratio (1.1-1.8) Procalcitonin (0.19-0.49) NG/ML PTH Intact Whole Molec (14-64) pg/mL Arterial Blood Potassium 4.5 (3.6-5.2) mmol/L Hepatitis Be Antigen (Non-reactive) 06/13/18 06/13/18 06/12/18 Range/Units 05:40 05:40 22:41 WBC 15.9 H D (4.5-11.0) 10^3/uL RBC 3.14 L (3.5-6.1) 10^6/uL Hgb 9.4 L (12.0-16.0) g/dL Hct 30.0 L (36.0-48.0) % MCV 95.5 (80.0-105.0) fl MCH 29.9 (25.0-35.0) pg MCHC 31.3 (31.0-37.0) g/dl RDW 18.0 H (11.5-14.5) % Plt Count 115 L (120.0-450.0) 10^3/uL Manual Plt Count 140 (120-450) K/mm3 MPV 10.9 (7.0-11.0) fl Neut % (Auto) 91.2 H (50.0-68.0) % Lymph % (Auto) 4.3 L (22.0-35.0) % [place] % (Auto) 4.4 (1.0-6.0) % Eos % (Auto) 0.0 L (1.5-5.0) % Baso % (Auto) 0.1 (0.0-3.0) % Lymph # (Auto) 0.7 L (1.2-3.4) [place] # (Auto) 0.7 H (0.1-0.6) Eos # (Auto) 0.0 (0.0-0.7) Baso # (Auto) 0.01 (0.0-2.0) K/mm3 Absolute Neuts (auto) 14.48 H (1.4-6.5) Neutrophils % (Manual) 90 H (50.0-70.0) % Band Neutrophils % 2 (0-2) % Lymphocytes % (Manual) 6 L (22.0-35.0) % Monocytes % (Manual) 2 (1.0-6.0) % Platelet Evaluation Low (NORMAL) PT 17.8 H (9.4-12.5) SECONDS INR 1.60 APTT > 400.0 H* (26.9-38.3) Seconds pCO2 (35-45) mm/Hg pO2 (80-100) mm/Hg HCO3 (21-28) mmol/L ABG pH (7.35-7.45) ABG Total CO2 (22-28) mmol.L ABG O2 Saturation (95-98) % ABG Base Excess (-2.0-3.0) mmol/L ABG Potassium (3.6-5.2) mmol/L Glucose (65-105) mg/dl Lactate (0.7-2.1) mmol/L FiO2 % Crit Value Called To Crit Value Called By Blood Gas Notified Time Sodium 140 (132-148) mmol/L Potassium 5.4 H (3.6-5.0) mmol/L Chloride 101 (98-107) mmol/L Carbon Dioxide 19 L (21-33) mmol/L Anion Gap 25 H (10-20) BUN 47 H (7-21) mg/dL Creatinine 10.3 H* (0.7-1.2) mg/dl Est GFR ( Amer) 5 Est GFR (Non-Af Amer) 4 Random Glucose 186 H (70-110) mg/dL Lactic Acid (0.7-2.1) mmol/L Calcium 8.5 (8.4-10.5) mg/dL Phosphorus 5.6 H (2.5-4.5) mg/dL Magnesium 2.9 H (1.7-2.2) mg/dL Total Bilirubin 2.2 H (0.2-1.3) mg/dL Direct Bilirubin 1.9 H (0.0-0.4) mg/dL AST 33 (14-36) U/L ALT 23 (7-56) U/L Alkaline Phosphatase 129 H (38-126) U/L Ammonia (9-33) umol/L Total Creatine Kinase (35-230) U/L Troponin I ng/mL Total Protein 8.1 (5.8-8.3) g/dL Albumin 4.2 (3.0-4.8) g/dL Globulin 3.9 gm/dL Albumin/Globulin Ratio 1.1 (1.1-1.8) Procalcitonin (0.19-0.49) NG/ML PTH Intact Whole Molec (14-64) pg/mL Arterial Blood Potassium (3.6-5.2) mmol/L Hepatitis Be Antigen (Non-reactive) 06/12/18 06/12/18 06/12/18 Range/Units 16:36 16:36 16:36 WBC (4.5-11.0) 10^3/uL RBC (3.5-6.1) 10^6/uL Hgb (12.0-16.0) g/dL Hct (36.0-48.0) % MCV (80.0-105.0) fl MCH (25.0-35.0) pg MCHC (31.0-37.0) g/dl RDW (11.5-14.5) % Plt Count (120.0-450.0) 10^3/uL Manual Plt Count (120-450) K/mm3 MPV (7.0-11.0) fl Neut % (Auto) (50.0-68.0) % Lymph % (Auto) (22.0-35.0) % [place] % (Auto) (1.0-6.0) % Eos % (Auto) (1.5-5.0) % Baso % (Auto) (0.0-3.0) % Lymph # (Auto) (1.2-3.4) [place] # (Auto) (0.1-0.6) Eos # (Auto) (0.0-0.7) Baso # (Auto) (0.0-2.0) K/mm3 Absolute Neuts (auto) (1.4-6.5) Neutrophils % (Manual) (50.0-70.0) % Band Neutrophils % (0-2) % Lymphocytes % (Manual) (22.0-35.0) % Monocytes % (Manual) (1.0-6.0) % Platelet Evaluation (NORMAL) PT (9.4-12.5) SECONDS INR APTT (26.9-38.3) Seconds pCO2 (35-45) mm/Hg pO2 (80-100) mm/Hg HCO3 (21-28) mmol/L ABG pH (7.35-7.45) ABG Total CO2 (22-28) mmol.L ABG O2 Saturation (95-98) % ABG Base Excess (-2.0-3.0) mmol/L ABG Potassium (3.6-5.2) mmol/L Glucose (65-105) mg/dl Lactate (0.7-2.1) mmol/L FiO2 % Crit Value Called To Crit Value Called By Blood Gas Notified Time Sodium 140 (132-148) mmol/L Potassium 5.1 H (3.6-5.0) mmol/L Chloride 101 (98-107) mmol/L Carbon Dioxide 24 (21-33) mmol/L Anion Gap 20 (10-20) BUN 42 H (7-21) mg/dL Creatinine 9.4 H* (0.7-1.2) mg/dl Est GFR ( Amer) 5 Est GFR (Non-Af Amer) 4 Random Glucose 160 H (70-110) mg/dL Lactic Acid (0.7-2.1) mmol/L Calcium 8.3 L (8.4-10.5) mg/dL Phosphorus 4.1 (2.5-4.5) mg/dL Magnesium 2.9 H (1.7-2.2) mg/dL Total Bilirubin 2.0 H (0.2-1.3) mg/dL Direct Bilirubin (0.0-0.4) mg/dL AST 29 (14-36) U/L ALT 28 (7-56) U/L Alkaline Phosphatase 141 H (38-126) U/L Ammonia 28 (9-33) umol/L Total Creatine Kinase 93 (35-230) U/L Troponin I 0.14 H* D ng/mL Total Protein 8.1 (5.8-8.3) g/dL Albumin 3.9 (3.0-4.8) g/dL Globulin 4.1 gm/dL Albumin/Globulin Ratio 1.0 L (1.1-1.8) Procalcitonin 0.17 L (0.19-0.49) NG/ML PTH Intact Whole Molec (14-64) pg/mL Arterial Blood Potassium (3.6-5.2) mmol/L Hepatitis Be Antigen (Non-reactive) 06/12/18 06/12/18 06/12/18 Range/Units 16:36 16:36 11:10 WBC 7.6 D (4.5-11.0) 10^3/uL RBC 3.28 L (3.5-6.1) 10^6/uL Hgb 9.9 L (12.0-16.0) g/dL Hct 30.5 L (36.0-48.0) % MCV 93.0 (80.0-105.0) fl MCH 30.2 (25.0-35.0) pg MCHC 32.5 (31.0-37.0) g/dl RDW 17.7 H (11.5-14.5) % Plt Count 79 L (120.0-450.0) 10^3/uL Manual Plt Count 57 L (120-450) K/mm3 MPV 10.3 (7.0-11.0) fl Neut % (Auto) 86.7 H (50.0-68.0) % Lymph % (Auto) 8.2 L (22.0-35.0) % [place] % (Auto) 4.6 (1.0-6.0) % Eos % (Auto) 0.4 L (1.5-5.0) % Baso % (Auto) 0.1 (0.0-3.0) % Lymph # (Auto) 0.6 L (1.2-3.4) [place] # (Auto) 0.4 (0.1-0.6) Eos # (Auto) 0.0 (0.0-0.7) Baso # (Auto) 0.01 (0.0-2.0) K/mm3 Absolute Neuts (auto) 6.62 H (1.4-6.5) Neutrophils % (Manual) (50.0-70.0) % Band Neutrophils % (0-2) % Lymphocytes % (Manual) (22.0-35.0) % Monocytes % (Manual) (1.0-6.0) % Platelet Evaluation (NORMAL) PT (9.4-12.5) SECONDS INR APTT (26.9-38.3) Seconds pCO2 (35-45) mm/Hg pO2 (80-100) mm/Hg HCO3 (21-28) mmol/L ABG pH (7.35-7.45) ABG Total CO2 (22-28) mmol.L ABG O2 Saturation (95-98) % ABG Base Excess (-2.0-3.0) mmol/L ABG Potassium (3.6-5.2) mmol/L Glucose (65-105) mg/dl Lactate (0.7-2.1) mmol/L FiO2 % Crit Value Called To Crit Value Called By Blood Gas Notified Time Sodium (132-148) mmol/L Potassium (3.6-5.0) mmol/L Chloride (98-107) mmol/L Carbon Dioxide (21-33) mmol/L Anion Gap (10-20) BUN (7-21) mg/dL Creatinine (0.7-1.2) mg/dl Est GFR ( Amer) Est GFR (Non-Af Amer) Random Glucose (70-110) mg/dL Lactic Acid 2.1 (0.7-2.1) mmol/L Calcium (8.4-10.5) mg/dL Phosphorus (2.5-4.5) mg/dL Magnesium (1.7-2.2) mg/dL Total Bilirubin (0.2-1.3) mg/dL Direct Bilirubin (0.0-0.4) mg/dL AST (14-36) U/L ALT (7-56) U/L Alkaline Phosphatase (38-126) U/L Ammonia (9-33) umol/L Total Creatine Kinase (35-230) U/L Troponin I ng/mL Total Protein (5.8-8.3) g/dL Albumin (3.0-4.8) g/dL Globulin gm/dL Albumin/Globulin Ratio (1.1-1.8) Procalcitonin (0.19-0.49) NG/ML PTH Intact Whole Molec (14-64) pg/mL Arterial Blood Potassium (3.6-5.2) mmol/L Hepatitis Be Antigen (Non-reactive) 06/12/18 06/11/18 06/11/18 Range/Units 08:30 15:44 05:00 WBC (4.5-11.0) 10^3/uL RBC (3.5-6.1) 10^6/uL Hgb (12.0-16.0) g/dL Hct (36.0-48.0) % MCV (80.0-105.0) fl MCH (25.0-35.0) pg MCHC (31.0-37.0) g/dl RDW (11.5-14.5) % Plt Count (120.0-450.0) 10^3/uL Manual Plt Count (120-450) K/mm3 MPV (7.0-11.0) fl Neut % (Auto) (50.0-68.0) % Lymph % (Auto) (22.0-35.0) % [place] % (Auto) (1.0-6.0) % Eos % (Auto) (1.5-5.0) % Baso % (Auto) (0.0-3.0) % Lymph # (Auto) (1.2-3.4) [place] # (Auto) (0.1-0.6) Eos # (Auto) (0.0-0.7) Baso # (Auto) (0.0-2.0) K/mm3 Absolute Neuts (auto) (1.4-6.5) Neutrophils % (Manual) (50.0-70.0) % Band Neutrophils % (0-2) % Lymphocytes % (Manual) (22.0-35.0) % Monocytes % (Manual) (1.0-6.0) % Platelet Evaluation (NORMAL) PT (9.4-12.5) SECONDS INR APTT (26.9-38.3) Seconds pCO2 (35-45) mm/Hg pO2 (80-100) mm/Hg HCO3 (21-28) mmol/L ABG pH (7.35-7.45) ABG Total CO2 (22-28) mmol.L ABG O2 Saturation (95-98) % ABG Base Excess (-2.0-3.0) mmol/L ABG Potassium (3.6-5.2) mmol/L Glucose (65-105) mg/dl Lactate (0.7-2.1) mmol/L FiO2 % Crit Value Called To Crit Value Called By Blood Gas Notified Time Sodium (132-148) mmol/L Potassium (3.6-5.0) mmol/L Chloride (98-107) mmol/L Carbon Dioxide (21-33) mmol/L Anion Gap (10-20) BUN (7-21) mg/dL Creatinine (0.7-1.2) mg/dl Est GFR ( Amer) Est GFR (Non-Af Amer) Random Glucose (70-110) mg/dL Lactic Acid (0.7-2.1) mmol/L Calcium (8.4-10.5) mg/dL Phosphorus (2.5-4.5) mg/dL Magnesium (1.7-2.2) mg/dL Total Bilirubin (0.2-1.3) mg/dL Direct Bilirubin (0.0-0.4) mg/dL AST (14-36) U/L ALT (7-56) U/L Alkaline Phosphatase (38-126) U/L Ammonia (9-33) umol/L Total Creatine Kinase (35-230) U/L Troponin I ng/mL Total Protein (5.8-8.3) g/dL Albumin (3.0-4.8) g/dL Globulin gm/dL Albumin/Globulin Ratio (1.1-1.8) Procalcitonin 0.22 (0.19-0.49) NG/ML PTH Intact Whole Molec 547 H (14-64) pg/mL Arterial Blood Potassium (3.6-5.2) mmol/L Hepatitis Be Antigen Non-reactive (Non-reactive) Laboratory Results - last 24 hr 06/11/18 06/11/18 06/12/18 05:00 15:44 08:30 WBC RBC Hgb Hct MCV MCH MCHC RDW Plt Count Manual Plt Count MPV Neut % (Auto) Lymph % (Auto) [place] % (Auto) Eos % (Auto) Baso % (Auto) Lymph # (Auto) [place] # (Auto) Eos # (Auto) Baso # (Auto) Absolute Neuts (auto) Neutrophils % (Manual) Band Neutrophils % Lymphocytes % (Manual) Monocytes % (Manual) Platelet Evaluation PT INR APTT pCO2 pO2 HCO3 ABG pH ABG Total CO2 ABG O2 Saturation ABG Base Excess ABG Potassium Glucose Lactate FiO2 Crit Value Called To Crit Value Called By Blood Gas Notified Time Sodium Potassium Chloride Carbon Dioxide Anion Gap BUN Creatinine Est GFR ( Amer) Est GFR (Non-Af Amer) Random Glucose Lactic Acid Calcium Phosphorus Magnesium Total Bilirubin Direct Bilirubin AST ALT Alkaline Phosphatase Ammonia Total Creatine Kinase Troponin I Total Protein Albumin Globulin Albumin/Globulin Ratio Procalcitonin 0.22 PTH Intact Whole Molec 547 H Arterial Blood Potassium Hepatitis Be Antigen Non-reactive 06/12/18 06/12/18 06/12/18 11:10 16:36 16:36 WBC 7.6 D RBC 3.28 L Hgb 9.9 L Hct 30.5 L MCV 93.0 MCH 30.2 MCHC 32.5 RDW 17.7 H Plt Count 79 L Manual Plt Count 57 L MPV 10.3 Neut % (Auto) 86.7 H Lymph % (Auto) 8.2 L [place] % (Auto) 4.6 Eos % (Auto) 0.4 L Baso % (Auto) 0.1 Lymph # (Auto) 0.6 L [place] # (Auto) 0.4 Eos # (Auto) 0.0 Baso # (Auto) 0.01 Absolute Neuts (auto) 6.62 H Neutrophils % (Manual) Band Neutrophils % Lymphocytes % (Manual) Monocytes % (Manual) Platelet Evaluation PT INR APTT pCO2 pO2 HCO3 ABG pH ABG Total CO2 ABG O2 Saturation ABG Base Excess ABG Potassium Glucose Lactate FiO2 Crit Value Called To Crit Value Called By Blood Gas Notified Time Sodium Potassium Chloride Carbon Dioxide Anion Gap BUN Creatinine Est GFR ( Amer) Est GFR (Non-Af Amer) Random Glucose Lactic Acid 2.1 Calcium Phosphorus Magnesium Total Bilirubin Direct Bilirubin AST ALT Alkaline Phosphatase Ammonia Total Creatine Kinase Troponin I Total Protein Albumin Globulin Albumin/Globulin Ratio Procalcitonin PTH Intact Whole Molec Arterial Blood Potassium Hepatitis Be Antigen 06/12/18 06/12/18 06/12/18 16:36 16:36 16:36 WBC RBC Hgb Hct MCV MCH MCHC RDW Plt Count Manual Plt Count MPV Neut % (Auto) Lymph % (Auto) [place] % (Auto) Eos % (Auto) Baso % (Auto) Lymph # (Auto) [place] # (Auto) Eos # (Auto) Baso # (Auto) Absolute Neuts (auto) Neutrophils % (Manual) Band Neutrophils % Lymphocytes % (Manual) Monocytes % (Manual) Platelet Evaluation PT INR APTT pCO2 pO2 HCO3 ABG pH ABG Total CO2 ABG O2 Saturation ABG Base Excess ABG Potassium Glucose Lactate FiO2 Crit Value Called To Crit Value Called By Blood Gas Notified Time Sodium 140 Potassium 5.1 H Chloride 101 Carbon Dioxide 24 Anion Gap 20 BUN 42 H Creatinine 9.4 H* Est GFR ( Amer) 5 Est GFR (Non-Af Amer) 4 Random Glucose 160 H Lactic Acid Calcium 8.3 L Phosphorus 4.1 Magnesium 2.9 H Total Bilirubin 2.0 H Direct Bilirubin AST 29 ALT 28 Alkaline Phosphatase 141 H Ammonia 28 Total Creatine Kinase 93 Troponin I 0.14 H* D Total Protein 8.1 Albumin 3.9 Globulin 4.1 Albumin/Globulin Ratio 1.0 L Procalcitonin 0.17 L PTH Intact Whole Molec Arterial Blood Potassium Hepatitis Be Antigen 06/12/18 06/13/18 06/13/18 22:41 05:40 05:40 WBC 15.9 H D RBC 3.14 L Hgb 9.4 L Hct 30.0 L MCV 95.5 MCH 29.9 MCHC 31.3 RDW 18.0 H Plt Count 115 L Manual Plt Count 140 MPV 10.9 Neut % (Auto) 91.2 H Lymph % (Auto) 4.3 L [place] % (Auto) 4.4 Eos % (Auto) 0.0 L Baso % (Auto) 0.1 Lymph # (Auto) 0.7 L [place] # (Auto) 0.7 H Eos # (Auto) 0.0 Baso # (Auto) 0.01 Absolute Neuts (auto) 14.48 H Neutrophils % (Manual) 90 H Band Neutrophils % 2 Lymphocytes % (Manual) 6 L Monocytes % (Manual) 2 Platelet Evaluation Low PT 17.8 H INR 1.60 APTT > 400.0 H* pCO2 pO2 HCO3 ABG pH ABG Total CO2 ABG O2 Saturation ABG Base Excess ABG Potassium Glucose Lactate FiO2 Crit Value Called To Crit Value Called By Blood Gas Notified Time Sodium 140 Potassium 5.4 H Chloride 101 Carbon Dioxide 19 L Anion Gap 25 H BUN 47 H Creatinine 10.3 H* Est GFR ( Amer) 5 Est GFR (Non-Af Amer) 4 Random Glucose 186 H Lactic Acid Calcium 8.5 Phosphorus 5.6 H Magnesium 2.9 H Total Bilirubin 2.2 H Direct Bilirubin 1.9 H AST 33 ALT 23 Alkaline Phosphatase 129 H Ammonia Total Creatine Kinase Troponin I Total Protein 8.1 Albumin 4.2 Globulin 3.9 Albumin/Globulin Ratio 1.1 Procalcitonin PTH Intact Whole Molec Arterial Blood Potassium Hepatitis Be Antigen 06/13/18 06/13/18 06/13/18 05:40 07:40 08:40 WBC RBC Hgb Hct MCV MCH MCHC RDW Plt Count Manual Plt Count MPV Neut % (Auto) Lymph % (Auto) [place] % (Auto) Eos % (Auto) Baso % (Auto) Lymph # (Auto) [place] # (Auto) Eos # (Auto) Baso # (Auto) Absolute Neuts (auto) Neutrophils % (Manual) Band Neutrophils % Lymphocytes % (Manual) Monocytes % (Manual) Platelet Evaluation PT INR APTT > 400.0 H* pCO2 30 L pO2 90.0 HCO3 15.1 L ABG pH 7.31 L ABG Total CO2 16.0 L ABG O2 Saturation 97.7 ABG Base Excess -9.8 L ABG Potassium 4.5 Glucose 173 H Lactate 7.3 H* FiO2 21.0 Crit Value Called To Dr alcaraz Crit Value Called By Fred schroeder Blood Gas Notified Time 2144 Sodium 143.0 Potassium Chloride 106.0 Carbon Dioxide Anion Gap BUN Creatinine Est GFR ( Amer) Est GFR (Non-Af Amer) Random Glucose Lactic Acid Calcium Phosphorus Magnesium Total Bilirubin Direct Bilirubin AST ALT Alkaline Phosphatase Ammonia Total Creatine Kinase Troponin I 0.12 Total Protein Albumin Globulin Albumin/Globulin Ratio Procalcitonin PTH Intact Whole Molec Arterial Blood Potassium 4.5 Hepatitis Be Antigen Radiology Impressions: Radiology Impressions Chest X-Ray 06/12/18 14:59 IMPRESSION: Satisfactory position of recently placed right internal jugular catheter. No pneumothorax identified. Otherwise no interval change. EKG/Cardiology Studies: Cardiology / EKG Studies 06/12/18 14:20 EKG [ELECTROCARDIOGRAM] Stat Comment: Reason For Exam: eval 06/12/18 16:54 ELECTROCARDIOGRAM Stat Comment: Reason For Exam: with bicarb 06/13/18 07:00 EKG [ELECTROCARDIOGRAM] DAILY Comment: Reason For Exam: SB 06/14/18 07:00 EKG [ELECTROCARDIOGRAM] DAILY Comment: Reason For Exam: SB 06/15/18 07:00 EKG [ELECTROCARDIOGRAM] DAILY Comment: Reason For Exam: SB Fingerstick Blood Sugar Results: 180 Critical Care Progress Note - Nutrition Nutrition: Nutrition Category Date Time Status NPO Diet [DIET] Diets 06/12/18 Breakfast Ordered Assessment/Plan - Assessment and Plan (Free Text) Assessment: This is a 67 year old male with PMH of CAD s/p CABG and 5 stents, ESRD on HD //, HTN, hypothyroidism and DM who presented to the hospital on 06/11 for severe right sided lower back pain that initially started one year ago after fall in her kitchen as well as right sided breast pain from kitchen accident one week ago. Patient was brought to the ICU on 06/12 after [facility] called for systolic BP noted to be in the 70s. Subsequently started on the following drips: levophe d, dobutamine and vassopresin for possible cardiogenic shock from severely dilated RV on echo 06/12/18. Can also consider septic shock after blood culture found to be positive for gram positive cocci with rising WBC. Plan: Neuro: -maintain normothermia -Alert x1, combative and agitated, moving extremities spontaneously past midline -CT head 06/12 showed no acute finding, mild chronic white matter ischemic changes, cannot rule out MM or metastatic disease Cardio: Consider cardiogenic shock from severely dilated RV vs septic shock -maintain MAP>65 -will monitor vitals including HR and BP closely -currently on levo at 4, dobutamine at 2.5 and vasopressin at 0.03 -will titrate vassopressors as tolerated -Echo on 06/12 showed EF of 63%, RV severely dilated, moderate to severe MR, severe TR and RVSP 17 Indeterminate trops -troponins of 0.12, 0.14 and 0.09 -heparin drip stopped this AM after dark red fluid suctioned from OG tube Lungs: -SaO2 >90% -supplementary O2 PRN -solucortef 50mg IVP q6 -CXR 06/10 showed no evidence of focal infiltrate or consolidation in lungs. Cardiomegaly GI: -Dark red fluid from OG tube, will monitor CBC q4h -protonix drip -NPO for now -GI on consult, Dr. Milian Renal: ESRD on HD //Tue -HD planned for today -maintain euvolemia -avoid nephrotoxic agents, hypochloremia -replace electrolytes as needed -BUN/Cr elevated -sensipar, senokot, renagel Heme/onc -Hg today this morning is 9.4 from 9.9 -platelets today are 115 from 79 -CBC q4h to monitor Hg -Heme/onc on consult, Dr Wylie on consult for possible MM or metastatic disease Endo: -maintain euglycemia, glucose today is 186 ID: -WBC is 15.9 today from 7.6, afebrile -blood culture positive for gram positive cocci -currently on aztreonam, daptomycin and flagyl day 2 -procalc is 0.17 Patient seen and case discussed with attending, Dr. Hall <Chavez Hall - Last Filed: 06/13/18 17:36> CCU Objective - Vital Signs / Intake & Output Intake and Output (Last 8hrs): Intake & Output 06/13/18 06/13/18 06/13/18 06:59 14:59 22:59 Intake Total 50 200 Balance 50 200 Intake: IV 50 200 - Medications Active Medications: Active Medications Generic Name Dose Route Start Last Admin Trade Name Freq PRN Reason Stop Dose Admin Acetaminophen 650 mg 06/11/18 02:36 06/11/18 12:02 Tylenol 325mg Tab PO 650 mg Q6 PRN Administration TEMP>=99.5F Acetaminophen 650 mg 06/11/18 02:36 Tylenol 650 Mg Supp RC Q6H PRN TEMP>=99.5F Acetaminophen 650 mg 06/11/18 02:41 Tylenol 650 Mg Supp RC Q6H PRN Headache Acetaminophen 650 mg 06/11/18 02:42 06/12/18 00:58 Tylenol 325mg Tab PO 650 mg Q6 PRN Administration Headache Atorvastatin Calcium 80 mg 06/11/18 22:00 06/12/18 22:35 Lipitor PO Not Given HS RAISSA Cinacalcet 30 mg 06/11/18 02:45 06/12/18 19:58 Sensipar PO Not Given DIN RAISSA Docusate Sodium 100 mg 06/11/18 10:00 06/13/18 11:03 Colace PO Not Given TID RAISSA Hydrocortisone Sodium Succinate 50 mg 06/12/18 17:30 06/13/18 06:38 Solu-Cortef IVP 50 mg Q6H RAISSA Administration Aztreonam 500 mg/ Sodium 100 mls @ 100 mls/hr 06/11/18 11:00 06/13/18 11:01 Chloride IVPB 06/21/18 11:01 100 mls/hr Q12H RAISSA Administration Protocol Dopamine HCl/Dextrose 400 mg in 250 mls @ 16.074 mls/hr 06/12/18 11:19 Dopamine 400mg/250ml D5w IV .[id number] PRN TITRATE TO KEEP SBP>=100 MMHG Protocol 5 MCG/KG/MIN NOREPINEPHRINE BIT/0.9 % NACL 4 mg in 250 mls @ 15 mls/hr 06/12/18 11:26 06/13/18 08:01 Levophed 4 Mg/ 250 Ml Ns Premixed IV 7 mcg/min .[id number] PRN 26.25 mls/hr TITRATE PER MD ORDER Titration Protocol 4 MCG/MIN Vasopressin 20 units/ Sodium 101 mls @ 9.09 mls/hr 06/12/18 11:30 06/12/18 22:34 Chloride IV 9.09 mls/hr .[id number] RAISSA Administration Protocol 0.03 U/MIN Daptomycin 510 mg/ Sodium 100 mls @ 200 mls/hr 06/12/18 16:00 06/12/18 18:05 Chloride IV 06/17/18 16:01 200 mls/hr QOTHERDAY RAISSA Administration Dobutamine HCl/Dextrose 500 mg in 250 mls @ 5.144 mls/hr 06/12/18 16:04 06/13/18 07:47 Dobutamine/Dextrose 5% 500mg/250ml IV 2 mcg/kg/min .Q24H PRN 5.144 mls/hr TITRATE PER PROTOCOL Administration Protocol 2 MCG/KG/MIN Pantoprazole Sodium 40 mg in 100 mls @ 20 mls/hr 06/13/18 10:30 06/13/18 11:09 Protonix 40mg Ivpb IVPB 20 mls/hr .Q5H RAISSA Administration Dexmedetomidine HCl 400 mcg in 100 mls @ 4.286 mls/hr 06/13/18 17:24 Precedex 400mcg/100ml IV .[id number] PRN Agitation Protocol 0.2 MCG/KG/HR Insulin Human Regular 0 units 06/11/18 07:30 06/12/18 22:08 Humulin R Low SC Not Given ACHS RAISSA Protocol Levothyroxine Sodium 25 mcg 06/12/18 06:00 06/13/18 06:38 Synthroid PO Not Given 0600 RAISSA Lorazepam 2 mg 06/12/18 14:35 06/12/18 19:56 Ativan IVP 2 mg ONCE PRN Administration Agitation Protocol Metronidazole 500 mg 06/11/18 14:00 06/12/18 22:36 Flagyl PO 06/18/18 14:01 Not Given Q8 [facility] Protocol Midodrine 2.5 mg 06/11/18 10:00 06/13/18 11:19 Proamatine PO 2.5 mg TID [facility] Administration Mupirocin 0 gm 06/13/18 18:00 Bactroban Ointment TOP BID [facility] Ondansetron HCl 4 mg 06/11/18 02:36 Zofran Inj IVP Q4H PRN Nausea/Vomiting Pantoprazole Sodium 40 mg 06/11/18 06:00 06/13/18 06:37 Protonix Ec Tab PO Not Given 0600 [facility] Sennosides 17.2 mg 06/11/18 22:00 06/12/18 22:35 Senokot Tab PO Not Given HS [facility] Sevelamer HCl 800 mg 06/11/18 10:00 06/13/18 11:10 Renagel PO 800 mg TID [facility] Administration Silver Sulfadiazine 1 gm 06/11/18 10:00 Silvadene 1% 25 Gm TP DAILY [facility] Sodium Bicarbonate 50 meq 06/12/18 16:53 Sodium Bicarbonate 8.4% (50 Meq) Syringe IVP ONCE PRN Other Vitamin B Complex/Vit C/Folic Acid 1 tab 06/11/18 10:00 06/13/18 11:10 Nephro-Jose Miguel PO 1 tab DAILY [facility] Administration - Patient Studies Lab Studies: Microbiology Studies 06/12/18 08:50 Blood Culture - Preliminary Blood-Venous Gram Positive Cocci Gram Stain - Final 06/12/18 08:30 Blood Culture - Preliminary Blood-Venous Gram Positive Cocci Gram Stain - Final 06/10/18 23:15 Blood Culture - Preliminary Blood NO GROWTH AFTER 48 HOURS 06/10/18 22:45 Blood Culture - Preliminary Blood NO GROWTH AFTER 48 HOURS Lab Studies 06/13/18 06/13/18 06/13/18 Range/Units 16:18 15:48 13:00 WBC 20.4 H D (4.5-11.0) 10^3/uL RBC 3.11 L (3.5-6.1) 10^6/uL Hgb 9.4 L (12.0-16.0) g/dL Hct 28.9 L (36.0-48.0) % MCV 92.9 (80.0-105.0) fl MCH 30.2 (25.0-35.0) pg MCHC 32.5 (31.0-37.0) g/dl RDW 17.9 H (11.5-14.5) % Plt Count 114 L (120.0-450.0) 10^3/uL Manual Plt Count (120-450) K/mm3 MPV 10.2 (7.0-11.0) fl Neut % (Auto) 89.8 H (50.0-68.0) % Lymph % (Auto) 7.5 L (22.0-35.0) % [place] % (Auto) 2.6 (1.0-6.0) % Eos % (Auto) 0.0 L (1.5-5.0) % Baso % (Auto) 0.1 (0.0-3.0) % Lymph # (Auto) 1.5 (1.2-3.4) [place] # (Auto) 0.5 (0.1-0.6) Eos # (Auto) 0.0 (0.0-0.7) Baso # (Auto) 0.02 (0.0-2.0) K/mm3 Absolute Neuts (auto) 18.29 H (1.4-6.5) Neutrophils % (Manual) (50.0-70.0) % Band Neutrophils % (0-2) % Lymphocytes % (Manual) (22.0-35.0) % Monocytes % (Manual) (1.0-6.0) % Platelet Evaluation (NORMAL) PT 18.8 H (9.4-12.5) SECONDS INR 1.66 APTT 137.8 H* (26.9-38.3) Seconds pCO2 30 L (35-45) mm/Hg pO2 83.0 (80-100) mm/Hg HCO3 18.6 L (21-28) mmol/L ABG pH 7.40 (7.35-7.45) ABG Total CO2 19.5 L (22-28) mmol.L ABG O2 Saturation 98.1 H (95-98) % ABG Base Excess -5.0 L (-2.0-3.0) mmol/L ABG Potassium 3.4 L (3.6-5.2) mmol/L VBG pH (7.32-7.43) VBG pCO2 (40-60) VBG HCO3 (21-28) mmol/l VBG Total CO2 (22-28) mmol.L VBG O2 Sat (Calc) (40-65) % VBG Base Excess (0.0-2.0) mmol/L VBG Potassium (3.6-5.2) mmol/L Glucose 127 H (65-105) mg/dl Lactate 6.3 H* (0.7-2.1) mmol/L FiO2 28.0 % Crit Value Called To Dr hall Crit Value Called By Fred schroeder Blood Gas Notified Time 1625 Sodium 143.0 (132-148) mmol/L Potassium (3.6-5.0) mmol/L Chloride 105.0 (98-107) mmol/L Carbon Dioxide (21-33) mmol/L Anion Gap (10-20) BUN (7-21) mg/dL Creatinine (0.7-1.2) mg/dl Est GFR ( Amer) Est GFR (Non-Af Amer) Random Glucose (70-110) mg/dL Calcium (8.4-10.5) mg/dL Phosphorus (2.5-4.5) mg/dL Magnesium (1.7-2.2) mg/dL Total Bilirubin (0.2-1.3) mg/dL Direct Bilirubin (0.0-0.4) mg/dL AST (14-36) U/L ALT (7-56) U/L Alkaline Phosphatase (38-126) U/L Troponin I ng/mL Total Protein (5.8-8.3) g/dL Albumin (3.0-4.8) g/dL Globulin gm/dL Albumin/Globulin Ratio (1.1-1.8) Procalcitonin (0.19-0.49) NG/ML Arterial Blood Potassium 3.4 L (3.6-5.2) mmol/L Venous Blood Potassium (3.6-5.2) mmol/L Hepatitis Be Antigen (Non-reactive) HIV 1&2 Ag/Ab, 4th Gen (Nonreactive) 06/13/18 06/13/18 06/13/18 Range/Units 13:00 12:00 12:00 WBC 12.3 H D (4.5-11.0) 10^3/uL RBC 3.00 L (3.5-6.1) 10^6/uL Hgb 8.9 L (12.0-16.0) g/dL Hct 28.7 L (36.0-48.0) % MCV 95.7 (80.0-105.0) fl MCH 29.7 (25.0-35.0) pg MCHC 31.0 (31.0-37.0) g/dl RDW 18.0 H (11.5-14.5) % Plt Count 92 L (120.0-450.0) 10^3/uL Manual Plt Count (120-450) K/mm3 MPV 10.5 (7.0-11.0) fl Neut % (Auto) 86.5 H (50.0-68.0) % Lymph % (Auto) 4.8 L (22.0-35.0) % [place] % (Auto) 8.6 H (1.0-6.0) % Eos % (Auto) 0.0 L (1.5-5.0) % Baso % (Auto) 0.1 (0.0-3.0) % Lymph # (Auto) 0.6 L (1.2-3.4) [place] # (Auto) 1.1 H (0.1-0.6) Eos # (Auto) 0.0 (0.0-0.7) Baso # (Auto) 0.01 (0.0-2.0) K/mm3 Absolute Neuts (auto) 10.64 H (1.4-6.5) Neutrophils % (Manual) (50.0-70.0) % Band Neutrophils % (0-2) % Lymphocytes % (Manual) (22.0-35.0) % Monocytes % (Manual) (1.0-6.0) % Platelet Evaluation (NORMAL) PT (9.4-12.5) SECONDS INR APTT (26.9-38.3) Seconds pCO2 (35-45) mm/Hg pO2 61 H (80-100) mm/Hg HCO3 (21-28) mmol/L ABG pH (7.35-7.45) ABG Total CO2 (22-28) mmol.L ABG O2 Saturation (95-98) % ABG Base Excess (-2.0-3.0) mmol/L ABG Potassium (3.6-5.2) mmol/L VBG pH 7.22 L (7.32-7.43) VBG pCO2 39.0 L (40-60) VBG HCO3 16.0 L (21-28) mmol/l VBG Total CO2 17.2 L (22-28) mmol.L VBG O2 Sat (Calc) 90.5 H (40-65) % VBG Base Excess -11.1 L (0.0-2.0) mmol/L VBG Potassium 5.2 (3.6-5.2) mmol/L Glucose 186 H (65-105) mg/dl Lactate 10.2 H* (0.7-2.1) mmol/L FiO2 21.0 % Crit Value Called To Crystal Crit Value Called By Ab Blood Gas Notified Time 1210 Sodium 142 141.0 (132-148) mmol/L Potassium 4.7 (3.6-5.0) mmol/L Chloride 104 101.0 (98-107) mmol/L Carbon Dioxide 18 L (21-33) mmol/L Anion Gap 24 H (10-20) BUN 39 H (7-21) mg/dL Creatinine 7.9 H* D (0.7-1.2) mg/dl Est GFR ( Amer) 6 Est GFR (Non-Af Amer) 5 Random Glucose 169 H (70-110) mg/dL Calcium 8.7 (8.4-10.5) mg/dL Phosphorus 5.0 H (2.5-4.5) mg/dL Magnesium 2.7 H (1.7-2.2) mg/dL Total Bilirubin 1.8 H (0.2-1.3) mg/dL Direct Bilirubin (0.0-0.4) mg/dL AST 35 (14-36) U/L ALT 18 (7-56) U/L Alkaline Phosphatase 122 (38-126) U/L Troponin I ng/mL Total Protein 7.7 (5.8-8.3) g/dL Albumin 4.0 (3.0-4.8) g/dL Globulin 3.7 gm/dL Albumin/Globulin Ratio 1.1 (1.1-1.8) Procalcitonin (0.19-0.49) NG/ML Arterial Blood Potassium (3.6-5.2) mmol/L Venous Blood Potassium 5.2 (3.6-5.2) mmol/L Hepatitis Be Antigen (Non-reactive) HIV 1&2 Ag/Ab, 4th Gen (Nonreactive) 06/13/18 06/13/18 06/13/18 Range/Units 12:00 08:40 07:40 WBC (4.5-11.0) 10^3/uL RBC (3.5-6.1) 10^6/uL Hgb (12.0-16.0) g/dL Hct (36.0-48.0) % MCV (80.0-105.0) fl MCH (25.0-35.0) pg MCHC (31.0-37.0) g/dl RDW (11.5-14.5) % Plt Count (120.0-450.0) 10^3/uL Manual Plt Count (120-450) K/mm3 MPV (7.0-11.0) fl Neut % (Auto) (50.0-68.0) % Lymph % (Auto) (22.0-35.0) % [place] % (Auto) (1.0-6.0) % Eos % (Auto) (1.5-5.0) % Baso % (Auto) (0.0-3.0) % Lymph # (Auto) (1.2-3.4) [place] # (Auto) (0.1-0.6) Eos # (Auto) (0.0-0.7) Baso # (Auto) (0.0-2.0) K/mm3 Absolute Neuts (auto) (1.4-6.5) Neutrophils % (Manual) (50.0-70.0) % Band Neutrophils % (0-2) % Lymphocytes % (Manual) (22.0-35.0) % Monocytes % (Manual) (1.0-6.0) % Platelet Evaluation (NORMAL) PT (9.4-12.5) SECONDS INR APTT > 400.0 H* (26.9-38.3) Seconds pCO2 30 L (35-45) mm/Hg pO2 90.0 (80-100) mm/Hg HCO3 15.1 L (21-28) mmol/L ABG pH 7.31 L (7.35-7.45) ABG Total CO2 16.0 L (22-28) mmol.L ABG O2 Saturation 97.7 (95-98) % ABG Base Excess -9.8 L (-2.0-3.0) mmol/L ABG Potassium 4.5 (3.6-5.2) mmol/L VBG pH (7.32-7.43) VBG pCO2 (40-60) VBG HCO3 (21-28) mmol/l VBG Total CO2 (22-28) mmol.L VBG O2 Sat (Calc) (40-65) % VBG Base Excess (0.0-2.0) mmol/L VBG Potassium (3.6-5.2) mmol/L Glucose 173 H (65-105) mg/dl Lactate 7.3 H* (0.7-2.1) mmol/L FiO2 21.0 % Crit Value Called To Dr alcaraz Crit Value Called By Fred schroeder Blood Gas Notified Time 2144 Sodium 143.0 (132-148) mmol/L Potassium (3.6-5.0) mmol/L Chloride 106.0 (98-107) mmol/L Carbon Dioxide (21-33) mmol/L Anion Gap (10-20) BUN (7-21) mg/dL Creatinine (0.7-1.2) mg/dl Est GFR ( Amer) Est GFR (Non-Af Amer) Random Glucose (70-110) mg/dL Calcium (8.4-10.5) mg/dL Phosphorus (2.5-4.5) mg/dL Magnesium (1.7-2.2) mg/dL Total Bilirubin (0.2-1.3) mg/dL Direct Bilirubin (0.0-0.4) mg/dL AST (14-36) U/L ALT (7-56) U/L Alkaline Phosphatase (38-126) U/L Troponin I 0.12 ng/mL Total Protein (5.8-8.3) g/dL Albumin (3.0-4.8) g/dL Globulin gm/dL Albumin/Globulin Ratio (1.1-1.8) Procalcitonin (0.19-0.49) NG/ML Arterial Blood Potassium 4.5 (3.6-5.2) mmol/L Venous Blood Potassium (3.6-5.2) mmol/L Hepatitis Be Antigen (Non-reactive) HIV 1&2 Ag/Ab, 4th Gen (Nonreactive) 06/13/18 06/13/18 06/13/18 Range/Units 05:40 05:40 05:40 WBC 15.9 H D (4.5-11.0) 10^3/uL RBC 3.14 L (3.5-6.1) 10^6/uL Hgb 9.4 L (12.0-16.0) g/dL Hct 30.0 L (36.0-48.0) % MCV 95.5 (80.0-105.0) fl MCH 29.9 (25.0-35.0) pg MCHC 31.3 (31.0-37.0) g/dl RDW 18.0 H (11.5-14.5) % Plt Count 115 L (120.0-450.0) 10^3/uL Manual Plt Count 140 (120-450) K/mm3 MPV 10.9 (7.0-11.0) fl Neut % (Auto) 91.2 H (50.0-68.0) % Lymph % (Auto) 4.3 L (22.0-35.0) % [place] % (Auto) 4.4 (1.0-6.0) % Eos % (Auto) 0.0 L (1.5-5.0) % Baso % (Auto) 0.1 (0.0-3.0) % Lymph # (Auto) 0.7 L (1.2-3.4) [place] # (Auto) 0.7 H (0.1-0.6) Eos # (Auto) 0.0 (0.0-0.7) Baso # (Auto) 0.01 (0.0-2.0) K/mm3 Absolute Neuts (auto) 14.48 H (1.4-6.5) Neutrophils % (Manual) 90 H (50.0-70.0) % Band Neutrophils % 2 (0-2) % Lymphocytes % (Manual) 6 L (22.0-35.0) % Monocytes % (Manual) 2 (1.0-6.0) % Platelet Evaluation Low (NORMAL) PT (9.4-12.5) SECONDS INR APTT > 400.0 H* (26.9-38.3) Seconds pCO2 (35-45) mm/Hg pO2 (80-100) mm/Hg HCO3 (21-28) mmol/L ABG pH (7.35-7.45) ABG Total CO2 (22-28) mmol.L ABG O2 Saturation (95-98) % ABG Base Excess (-2.0-3.0) mmol/L ABG Potassium (3.6-5.2) mmol/L VBG pH (7.32-7.43) VBG pCO2 (40-60) VBG HCO3 (21-28) mmol/l VBG Total CO2 (22-28) mmol.L VBG O2 Sat (Calc) (40-65) % VBG Base Excess (0.0-2.0) mmol/L VBG Potassium (3.6-5.2) mmol/L Glucose (65-105) mg/dl Lactate (0.7-2.1) mmol/L FiO2 % Crit Value Called To Crit Value Called By Blood Gas Notified Time Sodium 140 (132-148) mmol/L Potassium 5.4 H (3.6-5.0) mmol/L Chloride 101 (98-107) mmol/L Carbon Dioxide 19 L (21-33) mmol/L Anion Gap 25 H (10-20) BUN 47 H (7-21) mg/dL Creatinine 10.3 H* (0.7-1.2) mg/dl Est GFR ( Amer) 5 Est GFR (Non-Af Amer) 4 Random Glucose 186 H (70-110) mg/dL Calcium 8.5 (8.4-10.5) mg/dL Phosphorus 5.6 H (2.5-4.5) mg/dL Magnesium 2.9 H (1.7-2.2) mg/dL Total Bilirubin 2.2 H (0.2-1.3) mg/dL Direct Bilirubin 1.9 H (0.0-0.4) mg/dL AST 33 (14-36) U/L ALT 23 (7-56) U/L Alkaline Phosphatase 129 H (38-126) U/L Troponin I ng/mL Total Protein 8.1 (5.8-8.3) g/dL Albumin 4.2 (3.0-4.8) g/dL Globulin 3.9 gm/dL Albumin/Globulin Ratio 1.1 (1.1-1.8) Procalcitonin (0.19-0.49) NG/ML Arterial Blood Potassium (3.6-5.2) mmol/L Venous Blood Potassium (3.6-5.2) mmol/L Hepatitis Be Antigen (Non-reactive) HIV 1&2 Ag/Ab, 4th Gen (Nonreactive) 06/12/18 06/12/18 06/11/18 Range/Units 22:41 16:36 15:44 WBC (4.5-11.0) 10^3/uL RBC (3.5-6.1) 10^6/uL Hgb (12.0-16.0) g/dL Hct (36.0-48.0) % MCV (80.0-105.0) fl MCH (25.0-35.0) pg MCHC (31.0-37.0) g/dl RDW (11.5-14.5) % Plt Count (120.0-450.0) 10^3/uL Manual Plt Count (120-450) K/mm3 MPV (7.0-11.0) fl Neut % (Auto) (50.0-68.0) % Lymph % (Auto) (22.0-35.0) % [place] % (Auto) (1.0-6.0) % Eos % (Auto) (1.5-5.0) % Baso % (Auto) (0.0-3.0) % Lymph # (Auto) (1.2-3.4) [place] # (Auto) (0.1-0.6) Eos # (Auto) (0.0-0.7) Baso # (Auto) (0.0-2.0) K/mm3 Absolute Neuts (auto) (1.4-6.5) Neutrophils % (Manual) (50.0-70.0) % Band Neutrophils % (0-2) % Lymphocytes % (Manual) (22.0-35.0) % Monocytes % (Manual) (1.0-6.0) % Platelet Evaluation (NORMAL) PT 17.8 H (9.4-12.5) SECONDS INR 1.60 APTT > 400.0 H* (26.9-38.3) Seconds pCO2 (35-45) mm/Hg pO2 (80-100) mm/Hg HCO3 (21-28) mmol/L ABG pH (7.35-7.45) ABG Total CO2 (22-28) mmol.L ABG O2 Saturation (95-98) % ABG Base Excess (-2.0-3.0) mmol/L ABG Potassium (3.6-5.2) mmol/L VBG pH (7.32-7.43) VBG pCO2 (40-60) VBG HCO3 (21-28) mmol/l VBG Total CO2 (22-28) mmol.L VBG O2 Sat (Calc) (40-65) % VBG Base Excess (0.0-2.0) mmol/L VBG Potassium (3.6-5.2) mmol/L Glucose (65-105) mg/dl Lactate (0.7-2.1) mmol/L FiO2 % Crit Value Called To Crit Value Called By Blood Gas Notified Time Sodium (132-148) mmol/L Potassium (3.6-5.0) mmol/L Chloride (98-107) mmol/L Carbon Dioxide (21-33) mmol/L Anion Gap (10-20) BUN (7-21) mg/dL Creatinine (0.7-1.2) mg/dl Est GFR ( Amer) Est GFR (Non-Af Amer) Random Glucose (70-110) mg/dL Calcium (8.4-10.5) mg/dL Phosphorus (2.5-4.5) mg/dL Magnesium (1.7-2.2) mg/dL Total Bilirubin (0.2-1.3) mg/dL Direct Bilirubin (0.0-0.4) mg/dL AST (14-36) U/L ALT (7-56) U/L Alkaline Phosphatase (38-126) U/L Troponin I ng/mL Total Protein (5.8-8.3) g/dL Albumin (3.0-4.8) g/dL Globulin gm/dL Albumin/Globulin Ratio (1.1-1.8) Procalcitonin 0.17 L (0.19-0.49) NG/ML Arterial Blood Potassium (3.6-5.2) mmol/L Venous Blood Potassium (3.6-5.2) mmol/L Hepatitis Be Antigen Non-reactive (Non-reactive) HIV 1&2 Ag/Ab, 4th Gen (Nonreactive) 06/11/18 Range/Units 11:05 WBC (4.5-11.0) 10^3/uL RBC (3.5-6.1) 10^6/uL Hgb (12.0-16.0) g/dL Hct (36.0-48.0) % MCV (80.0-105.0) fl MCH (25.0-35.0) pg MCHC (31.0-37.0) g/dl RDW (11.5-14.5) % Plt Count (120.0-450.0) 10^3/uL Manual Plt Count (120-450) K/mm3 MPV (7.0-11.0) fl Neut % (Auto) (50.0-68.0) % Lymph % (Auto) (22.0-35.0) % [place] % (Auto) (1.0-6.0) % Eos % (Auto) (1.5-5.0) % Baso % (Auto) (0.0-3.0) % Lymph # (Auto) (1.2-3.4) [place] # (Auto) (0.1-0.6) Eos # (Auto) (0.0-0.7) Baso # (Auto) (0.0-2.0) K/mm3 Absolute Neuts (auto) (1.4-6.5) Neutrophils % (Manual) (50.0-70.0) % Band Neutrophils % (0-2) % Lymphocytes % (Manual) (22.0-35.0) % Monocytes % (Manual) (1.0-6.0) % Platelet Evaluation (NORMAL) PT (9.4-12.5) SECONDS INR APTT (26.9-38.3) Seconds pCO2 (35-45) mm/Hg pO2 (80-100) mm/Hg HCO3 (21-28) mmol/L ABG pH (7.35-7.45) ABG Total CO2 (22-28) mmol.L ABG O2 Saturation (95-98) % ABG Base Excess (-2.0-3.0) mmol/L ABG Potassium (3.6-5.2) mmol/L VBG pH (7.32-7.43) VBG pCO2 (40-60) VBG HCO3 (21-28) mmol/l VBG Total CO2 (22-28) mmol.L VBG O2 Sat (Calc) (40-65) % VBG Base Excess (0.0-2.0) mmol/L VBG Potassium (3.6-5.2) mmol/L Glucose (65-105) mg/dl Lactate (0.7-2.1) mmol/L FiO2 % Crit Value Called To Crit Value Called By Blood Gas Notified Time Sodium (132-148) mmol/L Potassium (3.6-5.0) mmol/L Chloride (98-107) mmol/L Carbon Dioxide (21-33) mmol/L Anion Gap (10-20) BUN (7-21) mg/dL Creatinine (0.7-1.2) mg/dl Est GFR ( Amer) Est GFR (Non-Af Amer) Random Glucose (70-110) mg/dL Calcium (8.4-10.5) mg/dL Phosphorus (2.5-4.5) mg/dL Magnesium (1.7-2.2) mg/dL Total Bilirubin (0.2-1.3) mg/dL Direct Bilirubin (0.0-0.4) mg/dL AST (14-36) U/L ALT (7-56) U/L Alkaline Phosphatase (38-126) U/L Troponin I ng/mL Total Protein (5.8-8.3) g/dL Albumin (3.0-4.8) g/dL Globulin gm/dL Albumin/Globulin Ratio (1.1-1.8) Procalcitonin (0.19-0.49) NG/ML Arterial Blood Potassium (3.6-5.2) mmol/L Venous Blood Potassium (3.6-5.2) mmol/L Hepatitis Be Antigen (Non-reactive) HIV 1&2 Ag/Ab, 4th Gen Nonreactive (Nonreactive) Laboratory Results - last 24 hr 06/11/18 06/11/18 06/12/18 11:05 15:44 16:36 WBC RBC Hgb Hct MCV MCH MCHC RDW Plt Count Manual Plt Count MPV Neut % (Auto) Lymph % (Auto) [place] % (Auto) Eos % (Auto) Baso % (Auto) Lymph # (Auto) [place] # (Auto) Eos # (Auto) Baso # (Auto) Absolute Neuts (auto) Neutrophils % (Manual) Band Neutrophils % Lymphocytes % (Manual) Monocytes % (Manual) Platelet Evaluation PT INR APTT pCO2 pO2 HCO3 ABG pH ABG Total CO2 ABG O2 Saturation ABG Base Excess ABG Potassium VBG pH VBG pCO2 VBG HCO3 VBG Total CO2 VBG O2 Sat (Calc) VBG Base Excess VBG Potassium Glucose Lactate FiO2 Crit Value Called To Crit Value Called By Blood Gas Notified Time Sodium Potassium Chloride Carbon Dioxide Anion Gap BUN Creatinine Est GFR ( Amer) Est GFR (Non-Af Amer) Random Glucose Calcium Phosphorus Magnesium Total Bilirubin Direct Bilirubin AST ALT Alkaline Phosphatase Troponin I Total Protein Albumin Globulin Albumin/Globulin Ratio Procalcitonin 0.17 L Arterial Blood Potassium Venous Blood Potassium Hepatitis Be Antigen Non-reactive HIV 1&2 Ag/Ab, 4th Gen Nonreactive 06/12/18 06/13/18 06/13/18 22:41 05:40 05:40 WBC 15.9 H D RBC 3.14 L Hgb 9.4 L Hct 30.0 L MCV 95.5 MCH 29.9 MCHC 31.3 RDW 18.0 H Plt Count 115 L Manual Plt Count 140 MPV 10.9 Neut % (Auto) 91.2 H Lymph % (Auto) 4.3 L [place] % (Auto) 4.4 Eos % (Auto) 0.0 L Baso % (Auto) 0.1 Lymph # (Auto) 0.7 L [place] # (Auto) 0.7 H Eos # (Auto) 0.0 Baso # (Auto) 0.01 Absolute Neuts (auto) 14.48 H Neutrophils % (Manual) 90 H Band Neutrophils % 2 Lymphocytes % (Manual) 6 L Monocytes % (Manual) 2 Platelet Evaluation Low PT 17.8 H INR 1.60 APTT > 400.0 H* pCO2 pO2 HCO3 ABG pH ABG Total CO2 ABG O2 Saturation ABG Base Excess ABG Potassium VBG pH VBG pCO2 VBG HCO3 VBG Total CO2 VBG O2 Sat (Calc) VBG Base Excess VBG Potassium Glucose Lactate FiO2 Crit Value Called To Crit Value Called By Blood Gas Notified Time Sodium 140 Potassium 5.4 H Chloride 101 Carbon Dioxide 19 L Anion Gap 25 H BUN 47 H Creatinine 10.3 H* Est GFR ( Amer) 5 Est GFR (Non-Af Amer) 4 Random Glucose 186 H Calcium 8.5 Phosphorus 5.6 H Magnesium 2.9 H Total Bilirubin 2.2 H Direct Bilirubin 1.9 H AST 33 ALT 23 Alkaline Phosphatase 129 H Troponin I Total Protein 8.1 Albumin 4.2 Globulin 3.9 Albumin/Globulin Ratio 1.1 Procalcitonin Arterial Blood Potassium Venous Blood Potassium Hepatitis Be Antigen HIV 1&2 Ag/Ab, 4th Gen 06/13/18 06/13/18 06/13/18 05:40 07:40 08:40 WBC RBC Hgb Hct MCV MCH MCHC RDW Plt Count Manual Plt Count MPV Neut % (Auto) Lymph % (Auto) [place] % (Auto) Eos % (Auto) Baso % (Auto) Lymph # (Auto) [place] # (Auto) Eos # (Auto) Baso # (Auto) Absolute Neuts (auto) Neutrophils % (Manual) Band Neutrophils % Lymphocytes % (Manual) Monocytes % (Manual) Platelet Evaluation PT INR APTT > 400.0 H* pCO2 30 L pO2 90.0 HCO3 15.1 L ABG pH 7.31 L ABG Total CO2 16.0 L ABG O2 Saturation 97.7 ABG Base Excess -9.8 L ABG Potassium 4.5 VBG pH VBG pCO2 VBG HCO3 VBG Total CO2 VBG O2 Sat (Calc) VBG Base Excess VBG Potassium Glucose 173 H Lactate 7.3 H* FiO2 21.0 Crit Value Called To Dr alcaraz Crit Value Called By Fred schroeder Blood Gas Notified Time 2144 Sodium 143.0 Potassium Chloride 106.0 Carbon Dioxide Anion Gap BUN Creatinine Est GFR ( Amer) Est GFR (Non-Af Amer) Random Glucose Calcium Phosphorus Magnesium Total Bilirubin Direct Bilirubin AST ALT Alkaline Phosphatase Troponin I 0.12 Total Protein Albumin Globulin Albumin/Globulin Ratio Procalcitonin Arterial Blood Potassium 4.5 Venous Blood Potassium Hepatitis Be Antigen HIV 1&2 Ag/Ab, 4th Gen 06/13/18 06/13/18 06/13/18 12:00 12:00 12:00 WBC 12.3 H D RBC 3.00 L Hgb 8.9 L Hct 28.7 L MCV 95.7 MCH 29.7 MCHC 31.0 RDW 18.0 H Plt Count 92 L Manual Plt Count MPV 10.5 Neut % (Auto) 86.5 H Lymph % (Auto) 4.8 L [place] % (Auto) 8.6 H Eos % (Auto) 0.0 L Baso % (Auto) 0.1 Lymph # (Auto) 0.6 L [place] # (Auto) 1.1 H Eos # (Auto) 0.0 Baso # (Auto) 0.01 Absolute Neuts (auto) 10.64 H Neutrophils % (Manual) Band Neutrophils % Lymphocytes % (Manual) Monocytes % (Manual) Platelet Evaluation PT INR APTT > 400.0 H* pCO2 pO2 61 H HCO3 ABG pH ABG Total CO2 ABG O2 Saturation ABG Base Excess ABG Potassium VBG pH 7.22 L VBG pCO2 39.0 L VBG HCO3 16.0 L VBG Total CO2 17.2 L VBG O2 Sat (Calc) 90.5 H VBG Base Excess -11.1 L VBG Potassium 5.2 Glucose 186 H Lactate 10.2 H* FiO2 21.0 Crit Value Called To Crystal Crit Value Called By Ab Blood Gas Notified Time 1210 Sodium 141.0 Potassium Chloride 101.0 Carbon Dioxide Anion Gap BUN Creatinine Est GFR ( Amer) Est GFR (Non-Af Amer) Random Glucose Calcium Phosphorus Magnesium Total Bilirubin Direct Bilirubin AST ALT Alkaline Phosphatase Troponin I Total Protein Albumin Globulin Albumin/Globulin Ratio Procalcitonin Arterial Blood Potassium Venous Blood Potassium 5.2 Hepatitis Be Antigen HIV 1&2 Ag/Ab, 4th Gen 06/13/18 06/13/18 06/13/18 13:00 13:00 15:48 WBC 20.4 H D RBC 3.11 L Hgb 9.4 L Hct 28.9 L MCV 92.9 MCH 30.2 MCHC 32.5 RDW 17.9 H Plt Count 114 L Manual Plt Count MPV 10.2 Neut % (Auto) 89.8 H Lymph % (Auto) 7.5 L [place] % (Auto) 2.6 Eos % (Auto) 0.0 L Baso % (Auto) 0.1 Lymph # (Auto) 1.5 [place] # (Auto) 0.5 Eos # (Auto) 0.0 Baso # (Auto) 0.02 Absolute Neuts (auto) 18.29 H Neutrophils % (Manual) Band Neutrophils % Lymphocytes % (Manual) Monocytes % (Manual) Platelet Evaluation PT 18.8 H INR 1.66 APTT 137.8 H* pCO2 pO2 HCO3 ABG pH ABG Total CO2 ABG O2 Saturation ABG Base Excess ABG Potassium VBG pH VBG pCO2 VBG HCO3 VBG Total CO2 VBG O2 Sat (Calc) VBG Base Excess VBG Potassium Glucose Lactate FiO2 Crit Value Called To Crit Value Called By Blood Gas Notified Time Sodium 142 Potassium 4.7 Chloride 104 Carbon Dioxide 18 L Anion Gap 24 H BUN 39 H Creatinine 7.9 H* D Est GFR ( Amer) 6 Est GFR (Non-Af Amer) 5 Random Glucose 169 H Calcium 8.7 Phosphorus 5.0 H Magnesium 2.7 H Total Bilirubin 1.8 H Direct Bilirubin AST 35 ALT 18 Alkaline Phosphatase 122 Troponin I Total Protein 7.7 Albumin 4.0 Globulin 3.7 Albumin/Globulin Ratio 1.1 Procalcitonin Arterial Blood Potassium Venous Blood Potassium Hepatitis Be Antigen HIV 1&2 Ag/Ab, 4th Gen 06/13/18 16:18 WBC RBC Hgb Hct MCV MCH MCHC RDW Plt Count Manual Plt Count MPV Neut % (Auto) Lymph % (Auto) [place] % (Auto) Eos % (Auto) Baso % (Auto) Lymph # (Auto) [place] # (Auto) Eos # (Auto) Baso # (Auto) Absolute Neuts (auto) Neutrophils % (Manual) Band Neutrophils % Lymphocytes % (Manual) Monocytes % (Manual) Platelet Evaluation PT INR APTT pCO2 30 L pO2 83.0 HCO3 18.6 L ABG pH 7.40 ABG Total CO2 19.5 L ABG O2 Saturation 98.1 H ABG Base Excess -5.0 L ABG Potassium 3.4 L VBG pH VBG pCO2 VBG HCO3 VBG Total CO2 VBG O2 Sat (Calc) VBG Base Excess VBG Potassium Glucose 127 H Lactate 6.3 H* FiO2 28.0 Crit Value Called To Dr hall Crit Value Called By Fred schroeder Blood Gas Notified Time 1625 Sodium 143.0 Potassium Chloride 105.0 Carbon Dioxide Anion Gap BUN Creatinine Est GFR ( Amer) Est GFR (Non-Af Amer) Random Glucose Calcium Phosphorus Magnesium Total Bilirubin Direct Bilirubin AST ALT Alkaline Phosphatase Troponin I Total Protein Albumin Globulin Albumin/Globulin Ratio Procalcitonin Arterial Blood Potassium 3.4 L Venous Blood Potassium Hepatitis Be Antigen HIV 1&2 Ag/Ab, 4th Gen Radiology Impressions: Radiology Impressions Chest X-Ray 06/12/18 14:59 IMPRESSION: Satisfactory position of recently placed right internal jugular catheter. No pneumothorax identified. Otherwise no interval change. Chest X-Ray 06/13/18 09:17 IMPRESSION: No active disease. EKG/Cardiology Studies: Cardiology / EKG Studies 06/12/18 16:54 ELECTROCARDIOGRAM Stat Comment: Reason For Exam: with bicarb 06/13/18 07:00 EKG [ELECTROCARDIOGRAM] DAILY Comment: Reason For Exam: SB 06/14/18 07:00 EKG [ELECTROCARDIOGRAM] DAILY Comment: Reason For Exam: SB 06/15/18 07:00 EKG [ELECTROCARDIOGRAM] DAILY Comment: Reason For Exam: SB Critical Care Progress Note - Nutrition Nutrition: Nutrition Category Date Time Status NPO Diet [DIET] Diets 06/12/18 Breakfast Ordered Attending/Attestation - Attestation I have personally seen and examined this patient.: Yes I have fully participated in the care of the patient.: Yes I have reviewed all pertinent clinical information: Yes Notes (Text): 06/13/18 17:[address] Hall note
[2018-06-13 12:07] LABS: BASO # 0.01 K/mm3 (0.0-2.0); BASO % 0.1 % (0.0-3.0); HEMOGLOBIN 8.9 g/dL (12.0-16.0); LYMPH # 0.6 (1.2-3.4); LYMPH % 4.8 % (22.0-35.0); MEAN CELL VOLUME 95.7 fl (80.0-105.0); MEAN CORPUSCULAR HEMOGLOBIN 29.7 pg (25.0-35.0); MEAN PLATELET VOLUME 10.5 fl (7.0-11.0); MONO # 1.1 (0.1-0.6); MONO % 8.6 % (1.0-6.0); VENOUS BLOOD GAS BASE EXCESS -11.1 mmol/L (0.0-2.0); VENOUS BLOOD GAS PO2 61 mm/Hg (30-55); VENOUS BLOOD PH 7.22 (7.32-7.43); WHITE BLOOD COUNT 12.3 10^3/uL (4.5-11.0)
--- NOTE | 2018-06-13 12:28 | CP.PCM.PN ---
Subjective - Date & Time of Evaluation Date of Evaluation: 06/13/18 Time of Evaluation: 12:26 - Subjective Subjective: Nephrology Consultation Note Assessment: critical Shock ? cardiogenic/septic (GPC) Diabetic chronic Kidney Disease (E11.22) Hypertensive Chronic Kidney Disease (I12.0) End stage renal disease (N18.6) dependence on hemodialysis (Z99.2) (TTS) via AVF Anemia (D64.9), Hyperphosphatemia (E83.39), Secondary Hyperparathyroidism (E21.1), HTN (I12.0) CAD s/p CABG obesity thrombocytopenia Lytic lesions ? underlying malignancy breast cellulitis versus malignancy lactic acidosis, GI bleed Plan: Will plan for dialysis today, hopefully will tolerate. Continue with Nephrovite 1 tab/day. PRBC as needed for anemia. defer further ADAM as concerns with malignancy. Hb 9.4 hold phos binders due to AMS, last phos level 5.6 PTH 547 pt started on pressors. maintain hemodynamic stable Glycemic control, Dialysis consistent diet Further work up/management as per primary team Dose meds/antibiotics (if needed) for ESRD status. Avoid fleets enema/magnesium based laxatives. Thanks for allowing me to participate in care of your patient. Will follow patient with you. Please call if any Qs. had d/w team Dr Amrit Malone Office: [phone] Subjective: Noted events overnight. Patients in ICU. on pressors. unable to provide ROS Physical Examination: General Appearance: in no acute respiratory distress, ill appearing Vitals reviewed and noted as below Head; Atraumatic, normocephalic ENT: no ulcers no thrush. Tongue is midline/dry. Oropharynx: no rash or ulcers. Neck; supple no lymphadenopathy, no thyromegaly or bruit Lungs: Normal respiratory rate/effort. Breath sounds bilateral equal and with r ales + Heart: Normal rate. s1s2 normal. No rub or gallop. Extremities: no edema. No varicose veins Neurological: Patient is lethargic and AMS status. non communicative Skin: Warm and dry. Normal turgor. No rash. Palpitation: Normal elasticity for age Abdomen: Abdomen is soft. Bowel sounds +. There is no abdominal tenderness, no guarding/rigidity or organomegaly Psych: deferred MSK: no joint tenderness or swelling. Digits and nails normal, no deformity : kidney or bladder not palpable Access: AVF 06/12/18: breast examined with RN, rt breast everardo-areolar swelling fulness ? mass, peau du orange appearance Labs/imaging reviewed. Past medical history, past surgical history, family history, social history, allergy reviewed and noted as below Family Hx: no hx of CKD. Non contributory Objective - Vital Signs/Intake and Output Vital Signs (last 24 hours): Temp Pulse Resp BP Pulse Ox 97 F L 83 19 123/85 96 06/12/18 08:35 06/13/18 07:47 06/12/18 20:10 06/13/18 07:47 06/12/18 20:01 Intake and Output: 06/13/18 06/13/18 06:59 18:59 Intake Total 50 200 Balance 50 200 - Medications Medications: Current Medications Acetaminophen (Tylenol 325mg Tab) 650 mg PO Q6 PRN PRN Reason: TEMP>=99.5F Last Admin: 06/11/18 12:02 Dose: 650 mg Acetaminophen (Tylenol 650 Mg Supp) 650 mg RC Q6H PRN PRN Reason: TEMP>=99.5F Acetaminophen (Tylenol 650 Mg Supp) 650 mg RC Q6H PRN PRN Reason: Headache Acetaminophen (Tylenol 325mg Tab) 650 mg PO Q6 PRN PRN Reason: Headache Last Admin: 06/12/18 00:58 Dose: 650 mg Atorvastatin Calcium (Lipitor) 80 mg PO HS [facility] Last Admin: 06/12/18 22:35 Dose: Not Given Cinacalcet (Sensipar) 30 mg PO DIN [facility] Last Admin: 06/12/18 19:58 Dose: Not Given Docusate Sodium (Colace) 100 mg PO TID [facility] Last Admin: 06/13/18 11:03 Dose: Not Given Hydrocortisone Sodium Succinate (Solu-Cortef) 50 mg IVP Q6H [facility] Last Admin: 06/13/18 06:38 Dose: 50 mg Hydroxyzine HCl (Atarax) 25 mg PO Q8H PRN PRN Reason: Itching / Pruritus Aztreonam 500 mg/ Sodium (Chloride) 100 mls @ 100 mls/hr IVPB Q12H [facility]; Protocol Stop: 06/21/18 11:01 Last Admin: 06/13/18 11:01 Dose: 100 mls/hr Dopamine HCl/Dextrose (Dopamine 400mg/250ml D5w) 400 mg in 250 mls @ 16.074 mls/hr IV .[id number] PRN; Protocol PRN Reason: TITRATE TO KEEP SBP>=100 MMHG NOREPINEPHRINE BIT/0.9 % NACL (Levophed 4 Mg/ 250 Ml Ns Premixed) 4 mg in 250 mls @ 15 mls/hr IV .[id number] PRN; Protocol PRN Reason: TITRATE PER MD ORDER Last Titration: 06/13/18 08:01 Dose: 7 mcg/min, 26.25 mls/hr Vasopressin 20 units/ Sodium (Chloride) 101 mls @ 9.09 mls/hr IV .Q11H7M [facility]; Protocol Last Admin: 06/12/18 22:34 Dose: 9.09 mls/hr Daptomycin 510 mg/ Sodium (Chloride) 100 mls @ 200 mls/hr IV QOTHERDAY [facility] Stop: 06/17/18 16:01 Last Admin: 06/12/18 18:05 Dose: 200 mls/hr Dobutamine HCl/Dextrose (Dobutamine/Dextrose 5% 500mg/250ml) 500 mg in 250 mls @ 5.144 mls/hr IV .Q24H PRN; Protocol PRN Reason: TITRATE PER PROTOCOL Last Admin: 06/13/18 07:47 Dose: 2 mcg/kg/min, 5.144 mls/hr Pantoprazole Sodium (Protonix 40mg Ivpb) 40 mg in 100 mls @ 20 mls/hr IVPB .Q5H [facility] Last Admin: 06/13/18 11:09 Dose: 20 mls/hr Insulin Human Regular (Humulin R Low) 0 units SC ACHS [facility]; Protocol Last Admin: 06/12/18 22:08 Dose: Not Given Levothyroxine Sodium (Synthroid) 25 mcg PO 0600 [facility] Last Admin: 06/13/18 06:38 Dose: Not Given Lorazepam (Ativan) 2 mg IVP ONCE PRN; Protocol PRN Reason: Agitation Last Admin: 06/12/18 19:56 Dose: 2 mg Metronidazole (Flagyl) 500 mg PO Q8 [facility]; Protocol Stop: 06/18/18 14:01 Last Admin: 06/12/18 22:36 Dose: Not Given Midodrine (Proamatine) 2.5 mg PO TID [facility] Last Admin: 06/13/18 11:19 Dose: 2.5 mg Ondansetron HCl (Zofran Inj) 4 mg IVP Q4H PRN PRN Reason: Nausea/Vomiting Pantoprazole Sodium (Protonix Ec Tab) 40 mg PO 0600 [facility] Last Admin: 06/13/18 06:37 Dose: Not Given Sennosides (Senokot Tab) 17.2 mg PO HS [facility] Last Admin: 06/12/18 22:35 Dose: Not Given Sevelamer HCl (Renagel) 800 mg PO TID [facility] Last Admin: 06/13/18 11:10 Dose: 800 mg Silver Sulfadiazine (Silvadene 1% 25 Gm) 1 gm TP DAILY [facility] Sodium Bicarbonate (Sodium Bicarbonate 8.4% (50 Meq) Syringe) 50 meq IVP ONCE PRN PRN Reason: Other Vitamin B Complex/Vit C/Folic Acid (Nephro-Jose Miguel) 1 tab PO DAILY [facility] Last Admin: 06/13/18 11:10 Dose: 1 tab - Labs Labs: 06/13/18 05:40 06/13/18 05:40 PT 17.8 SECONDS (9.4-12.5) H 06/12/18 22:41 INR 1.60 06/12/18 22:41 APTT > 400.0 Seconds (26.9-38.3) H* 06/13/18 05:40
[2018-06-13 13:26] LABS: ALB/GLOB RATIO 1.1 (1.1-1.8); CALCIUM 8.7 mg/dL (8.4-10.5)
[2018-06-13 13:33] LABS: INR 1.66; PROTHROMBIN TIME 18.8 SECONDS (9.4-12.5)
--- NOTE | 2018-06-13 13:33 | CP.PCM.PN ---
<Brandin Plummer - Last Filed: 06/13/18 13:29> Subjective - Date & Time of Evaluation Date of Evaluation: 06/13/18 Time of Evaluation: 13:29 - Subjective Subjective: Podiatry progress note - Drs. Holt/Felicitas 67F seen and evaluated at bedside in ICU with Dr. Holt. Patient currently receiving dialysis treatment. Patient not able to relay history or current complaints. Nurse states no acute events overnight. Objective - Vital Signs/Intake and Output Vital Signs (last 24 hours): Temp Pulse Resp BP Pulse Ox 97 F L 83 19 123/85 96 06/12/18 08:35 06/13/18 07:47 06/12/18 20:10 06/13/18 07:47 06/12/18 20:01 Intake and Output: 06/13/18 06/13/18 06:59 18:59 Intake Total 50 200 Balance 50 200 - Medications Medications: Current Medications Acetaminophen (Tylenol 325mg Tab) 650 mg PO Q6 PRN PRN Reason: TEMP>=99.5F Last Admin: 06/11/18 12:02 Dose: 650 mg Acetaminophen (Tylenol 650 Mg Supp) 650 mg RC Q6H PRN PRN Reason: TEMP>=99.5F Acetaminophen (Tylenol 650 Mg Supp) 650 mg RC Q6H PRN PRN Reason: Headache Acetaminophen (Tylenol 325mg Tab) 650 mg PO Q6 PRN PRN Reason: Headache Last Admin: 06/12/18 00:58 Dose: 650 mg Atorvastatin Calcium (Lipitor) 80 mg PO HS [facility] Last Admin: 06/12/18 22:35 Dose: Not Given Cinacalcet (Sensipar) 30 mg PO DIN [facility] Last Admin: 06/12/18 19:58 Dose: Not Given Docusate Sodium (Colace) 100 mg PO TID [facility] Last Admin: 06/13/18 11:03 Dose: Not Given Hydrocortisone Sodium Succinate (Solu-Cortef) 50 mg IVP Q6H [facility] Last Admin: 06/13/18 06:38 Dose: 50 mg Hydroxyzine HCl (Atarax) 25 mg PO Q8H PRN PRN Reason: Itching / Pruritus Aztreonam 500 mg/ Sodium (Chloride) 100 mls @ 100 mls/hr IVPB Q12H [facility]; Protocol Stop: 06/21/18 11:01 Last Admin: 06/13/18 11:01 Dose: 100 mls/hr Dopamine HCl/Dextrose (Dopamine 400mg/250ml D5w) 400 mg in 250 mls @ 16.074 mls/hr IV .[id number] PRN; Protocol PRN Reason: TITRATE TO KEEP SBP>=100 MMHG NOREPINEPHRINE BIT/0.9 % NACL (Levophed 4 Mg/ 250 Ml Ns Premixed) 4 mg in 250 mls @ 15 mls/hr IV .[id number] PRN; Protocol PRN Reason: TITRATE PER MD ORDER Last Titration: 06/13/18 08:01 Dose: 7 mcg/min, 26.25 mls/hr Vasopressin 20 units/ Sodium (Chloride) 101 mls @ 9.09 mls/hr IV .Q11H7M [facility]; Protocol Last Admin: 06/12/18 22:34 Dose: 9.09 mls/hr Daptomycin 510 mg/ Sodium (Chloride) 100 mls @ 200 mls/hr IV QOTHERDAY [facility] Stop: 06/17/18 16:01 Last Admin: 06/12/18 18:05 Dose: 200 mls/hr Dobutamine HCl/Dextrose (Dobutamine/Dextrose 5% 500mg/250ml) 500 mg in 250 mls @ 5.144 mls/hr IV .Q24H PRN; Protocol PRN Reason: TITRATE PER PROTOCOL Last Admin: 06/13/18 07:47 Dose: 2 mcg/kg/min, 5.144 mls/hr Pantoprazole Sodium (Protonix 40mg Ivpb) 40 mg in 100 mls @ 20 mls/hr IVPB .Q5H [facility] Last Admin: 06/13/18 11:09 Dose: 20 mls/hr Insulin Human Regular (Humulin R Low) 0 units SC ACHS [facility]; Protocol Last Admin: 06/12/18 22:08 Dose: Not Given Levothyroxine Sodium (Synthroid) 25 mcg PO 0600 [facility] Last Admin: 06/13/18 06:38 Dose: Not Given Lorazepam (Ativan) 2 mg IVP ONCE PRN; Protocol PRN Reason: Agitation Last Admin: 06/12/18 19:56 Dose: 2 mg Metronidazole (Flagyl) 500 mg PO Q8 [facility]; Protocol Stop: 06/18/18 14:01 Last Admin: 06/12/18 22:36 Dose: Not Given Midodrine (Proamatine) 2.5 mg PO TID [facility] Last Admin: 06/13/18 11:19 Dose: 2.5 mg Mupirocin (Bactroban Ointment) 10 gm TOP BID [facility] Ondansetron HCl (Zofran Inj) 4 mg IVP Q4H PRN PRN Reason: Nausea/Vomiting Pantoprazole Sodium (Protonix Ec Tab) 40 mg PO 0600 [facility] Last Admin: 06/13/18 06:37 Dose: Not Given Sennosides (Senokot Tab) 17.2 mg PO HS [facility] Last Admin: 06/12/18 22:35 Dose: Not Given Sevelamer HCl (Renagel) 800 mg PO TID [facility] Last Admin: 06/13/18 11:10 Dose: 800 mg Silver Sulfadiazine (Silvadene 1% 25 Gm) 1 gm TP DAILY [facility] Sodium Bicarbonate (Sodium Bicarbonate 8.4% (50 Meq) Syringe) 50 meq IVP ONCE PRN PRN Reason: Other Vitamin B Complex/Vit C/Folic Acid (Nephro-Jose Miguel) 1 tab PO DAILY [facility] Last Admin: 06/13/18 11:10 Dose: 1 tab - Labs Labs: 06/13/18 12:00 06/13/18 13:00 PT 17.8 SECONDS (9.4-12.5) H 06/12/18 22:41 INR 1.60 06/12/18 22:41 APTT > 400.0 Seconds (26.9-38.3) H* 06/13/18 12:00 - Constitutional Appears: Non-toxic - Head Exam Head Exam: NORMOCEPHALIC - Extremities Exam Additional comments: VASC: DP and PT pulses nonpalpable. CFT <3 seconds to digits. Temperature gradient cool to cool. +1 pitting edema present b/l. NEURO: Light touch and protective sensation absent bilaterally. DERM: RLE=Partial thickness wound noted to dorsum of right hallux measuring approximately 0.5 x 0.5 x 0.1 cm 0 ulcer noted to have a mixed fibrogranular base and hyperkeratosis periwound; no drainage; no purulence; no fluctuance; no undermining; no tunneling; no ascending cellulitis; no malodor. LLE=Partial thickness ulcerations noted to anteromedial ankle joint; wounds noted to have a mixed fibrogranular base and hyperkeratosis periwound; no periwound erythema; no purulence; no drainage; no fluctuance; no malodor. ORTHO: Pain on palpation distal tuft of right hallux. Pain upon right hallucal IPJ and 1st MPJ ROM. No pain on palpation to LLE wounds. 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 - Neurological Exam Neurological Exam: Awake - Psychiatric Exam Psychiatric exam: Normal Affect Assessment and Plan - Assessment and Plan (Free Text) Assessment: 67F with 1) bilateral lower extremity wounds, stable 2) right hallux pain Plan: Patient seen and evaluated with Dr. Holt Afebrile, WBC 12.3 PTT >400 Right foot XR - gross degenerative joint disease 1st MPJ, diffuse osteopenia, old healed fx 1st and 2nd mets, posttraumatic atrophy throughout the right 5th digit and 5th met bone Wounds cleansed with saline and dressed with optifoam b/l Wound cx taken - f/u results Pain control per medicine PT/OT consulted Podiatry will continue to follow <Alex Holt - Last Filed: 06/13/18 16:24> Objective - Vital Signs/Intake and Output Vital Signs (last 24 hours): Temp Pulse Resp BP Pulse Ox 97 F L 83 19 123/85 96 06/12/18 08:35 06/13/18 07:47 06/12/18 20:10 06/13/18 07:47 06/12/18 20:01 Intake and Output: 06/13/18 06/13/18 06:59 18:59 Intake Total 50 200 Balance 50 200 - Medications Medications: Current Medications Acetaminophen (Tylenol 325mg Tab) 650 mg PO Q6 PRN PRN Reason: TEMP>=99.5F Last Admin: 06/11/18 12:02 Dose: 650 mg Acetaminophen (Tylenol 650 Mg Supp) 650 mg RC Q6H PRN PRN Reason: TEMP>=99.5F Acetaminophen (Tylenol 650 Mg Supp) 650 mg RC Q6H PRN PRN Reason: Headache Acetaminophen (Tylenol 325mg Tab) 650 mg PO Q6 PRN PRN Reason: Headache Last Admin: 06/12/18 00:58 Dose: 650 mg Atorvastatin Calcium (Lipitor) 80 mg PO HS [facility] Last Admin: 06/12/18 22:35 Dose: Not Given Cinacalcet (Sensipar) 30 mg PO DIN [facility] Last Admin: 06/12/18 19:58 Dose: Not Given Docusate Sodium (Colace) 100 mg PO TID [facility] Last Admin: 06/13/18 11:03 Dose: Not Given Hydrocortisone Sodium Succinate (Solu-Cortef) 50 mg IVP Q6H [facility] Last Admin: 06/13/18 06:38 Dose: 50 mg Hydroxyzine HCl (Atarax) 25 mg PO Q8H PRN PRN Reason: Itching / Pruritus Aztreonam 500 mg/ Sodium (Chloride) 100 mls @ 100 mls/hr IVPB Q12H [facility]; Protocol Stop: 06/21/18 11:01 Last Admin: 06/13/18 11:01 Dose: 100 mls/hr Dopamine HCl/Dextrose (Dopamine 400mg/250ml D5w) 400 mg in 250 mls @ 16.074 mls/hr IV .[id number] PRN; Protocol PRN Reason: TITRATE TO KEEP SBP>=100 MMHG NOREPINEPHRINE BIT/0.9 % NACL (Levophed 4 Mg/ 250 Ml Ns Premixed) 4 mg in 250 mls @ 15 mls/hr IV .[id number] PRN; Protocol PRN Reason: TITRATE PER MD ORDER Last Titration: 06/13/18 08:01 Dose: 7 mcg/min, 26.25 mls/hr Vasopressin 20 units/ Sodium (Chloride) 101 mls @ 9.09 mls/hr IV .Q11H7M [facility]; Protocol Last Admin: 06/12/18 22:34 Dose: 9.09 mls/hr Daptomycin 510 mg/ Sodium (Chloride) 100 mls @ 200 mls/hr IV QOTHERDAY [facility] Stop: 06/17/18 16:01 Last Admin: 06/12/18 18:05 Dose: 200 mls/hr Dobutamine HCl/Dextrose (Dobutamine/Dextrose 5% 500mg/250ml) 500 mg in 250 mls @ 5.144 mls/hr IV .Q24H PRN; Protocol PRN Reason: TITRATE PER PROTOCOL Last Admin: 06/13/18 07:47 Dose: 2 mcg/kg/min, 5.144 mls/hr Pantoprazole Sodium (Protonix 40mg Ivpb) 40 mg in 100 mls @ 20 mls/hr IVPB .Q5H [facility] Last Admin: 06/13/18 11:09 Dose: 20 mls/hr Insulin Human Regular (Humulin R Low) 0 units SC ACHS [facility]; Protocol Last Admin: 06/12/18 22:08 Dose: Not Given Levothyroxine Sodium (Synthroid) 25 mcg PO 0600 [facility] Last Admin: 06/13/18 06:38 Dose: Not Given Lorazepam (Ativan) 2 mg IVP ONCE PRN; Protocol PRN Reason: Agitation Last Admin: 06/12/18 19:56 Dose: 2 mg Metronidazole (Flagyl) 500 mg PO Q8 [facility]; Protocol Stop: 06/18/18 14:01 Last Admin: 06/12/18 22:36 Dose: Not Given Midodrine (Proamatine) 2.5 mg PO TID [facility] Last Admin: 06/13/18 11:19 Dose: 2.5 mg Mupirocin (Bactroban Ointment) 0 gm TOP BID [facility] Ondansetron HCl (Zofran Inj) 4 mg IVP Q4H PRN PRN Reason: Nausea/Vomiting Pantoprazole Sodium (Protonix Ec Tab) 40 mg PO 0600 [facility] Last Admin: 06/13/18 06:37 Dose: Not Given Sennosides (Senokot Tab) 17.2 mg PO HS [facility] Last Admin: 06/12/18 22:35 Dose: Not Given Sevelamer HCl (Renagel) 800 mg PO TID [facility] Last Admin: 06/13/18 11:10 Dose: 800 mg Silver Sulfadiazine (Silvadene 1% 25 Gm) 1 gm TP DAILY [facility] Sodium Bicarbonate (Sodium Bicarbonate 8.4% (50 Meq) Syringe) 50 meq IVP ONCE PRN PRN Reason: Other Vitamin B Complex/Vit C/Folic Acid (Nephro-Jose Miguel) 1 tab PO DAILY [facility] Last Admin: 06/13/18 11:10 Dose: 1 tab - Labs Labs: 06/13/18 15:48 06/13/18 13:00 PT 18.8 SECONDS (9.4-12.5) H 06/13/18 13:00 INR 1.66 06/13/18 13:00 APTT 137.8 Seconds (26.9-38.3) H* 06/13/18 13:00 Attending/Attestation - Attestation I have personally seen and examined this patient.: Yes I have fully participated in the care of the patient.: Yes I have reviewed all pertinent clinical information, including history, physical exam and plan: Yes
[2018-06-13 13:39] LABS: PARTIAL THROMBOPLASTIN TIME 137.8 Seconds (26.9-38.3)
--- NOTE | 2018-06-13 13:44 | PN ---
DATE: 06/13/2018 SUBJECTIVE: The patient is now in ICU bed 5. The patient was transferred yesterday because of hypotension and rapid response. Overnight nurse's notes were reviewed. The patient was noticed by the nurses to be more awake. The patient's all scheduled narcotic pain medicine and sedative medications were discontinued. The patient underwent a right internal jugular triple-lumen catheter placement. OBJECTIVE: VITAL SIGNS: T-max 97. Telemetry shows sinus rhythm, sinus bradycardia, heart rate 88, blood pressure in the last 6-12 hours is 88/57 and O2 sat 96%. HEENT: The patient's head examination normocephalic, atraumatic. HEENT examination shows pale conjunctivae,anicteric sclerae, no oropharyngeal lesion. Positive right internal jugular triple-lumen catheter. CHEST: Examination showed median sternotomy surgical scar, left upper chest pacemaker noted. Positive kyphosis. Questionable decreased breath sounds bilaterally. CARDIOVASCULAR: Examination S1, S2. Positive systolic murmur left sternal border, right second intercostal space and left second intercostal space. ABDOMEN: Soft. Positive bowel sounds. Positive right breast induration noted. No palpable hepatosplenomegaly. GENITALIA: Female. EXTREMITIES: Shows trace swelling of the lower extremity. Positive upper extremity AV fistula. Gait examination not tested. MUSCULOSKELETAL: As per the body mass index. MEDICATIONS: The patient is currently on IV pressors and inotropes, including dobutamine, norepinephrine and vasopressin. LABORATORY DATA: Diagnostics from June 13, 2018; sodium 140, potassium 5.4, chloride 101, CO2 of 19, BUN 47, creatinine 10.3, calcium 8.5, glucose 186, phosphorus 5.6, magnesium 2.9, AG ratio 25, total bili 2.2, direct bili 1.9. WBC 15.9, hemoglobin/hematocrit 9.4/30 and platelet 115. Granulocytes 91% segs. Echocardiogram shows left ventricle ejection fraction 63%, severely dilated right ventricle and decreased right ventricular systolic function with moderate mitral regurgitation, severe tricuspid regurgitation. EKG was reviewed. IMPRESSION: 1. Questionable cardiogenic versus septic shock with severe hypotension and IV inotropes and pressors dependent hypotension and questionable cardiogenic versus septic shock. 2. Questionable acute ST versus non-ST elevation myocardial infarction. 3. Paroxysmal atrial fibrillation. 4. Right bundle-branch block. 5. Questionable inferior anterolateral ST elevation myocardial infarction with elevated troponin. 6. Non-hemolyzed hyperkalemia. 7. End-stage renal disease, hemodialysis dependent. 8. Increased anion gap metabolic acidosis. 9. Mild hyperbilirubinemia. 10. Status post right internal jugular triple-lumen catheter placement. 11. Secondary hyperparathyroidism with hyperphosphatemia. 12. Leukocytosis with granulocytosis. 13. Thrombocytopenia. 14. Anemia. 15. Status post packed red blood cell transfusion. 16. Hypothyroidism. 17. Left ventricular ejection fraction of 63%. 18. Right-sided diastolic congestive heart failure with severely dilated right ventricle and severely reduced right ventricular systolic function. 19. Moderate mitral regurgitation. 20. Severe tricuspid regurgitation. 21. Right bundle-branch block and left anterior hemiblock. 22. Questionable acute ST elevation versus non-ST elevation anterolateral myocardial infarction. 23. Possible cardiogenic versus hypotensive versus septic shock. 24. Deconditioning. 25. History of coronary artery disease, coronary artery bypass graft, history of permanent pacemaker implant. 26. End-stage renal disease, hemodialysis dependent. 27. History of chronic narcotic-dependent pain syndrome. 28. Chronic back pain syndrome. 29. Right breast cellulitis and right chest wall cellulitis. 30. Right breast peau d'orange. 31. Microvascular ischemic disease of the brain and the periventricular white matter. 32. Chronic lacunar infarcts of the brain. 33. Questionable suspicious multiple myeloma with abnormal CAT scan of the head. PLAN: At this time, the patient is to be continued in intensive care unit with inotrope and pressor support. The patient is being continued on broad-spectrum IV antibiotic as per Infectious Disease. The patient has been followed up by Cardiology, Neurology, Infectious Disease and Hematology/Oncology. The patient's niece, who is only next of kin available was contacted yesterday and the patient's niece was updated about the patient's condition, diagnosis, overall guarded to poor prognosis, critical condition. All details were discussed and explained to the patient's niece in layman's language. All questions concerned answered. At this time, the patient will be continued on all the therapeutic intervention as per the MAR, which was reviewed. The patient has been ordered serial labs, serial EKGs. The patient will be closely followed up in ICU with Critical Care, Cardiology, Neurology, Infectious Disease and Hematology/Oncology. Prognosis guarded to poor. Condition critical, next of kin aware. Time spent is more than 35 minutes. Dictated and electronically signed, not read. Jimy Simeon MD
--- NOTE | 2018-06-13 14:31 | RAD ---
Date of service: 06/13/2018 HISTORY: OG tube COMPARISON: 06/12/2018 FINDINGS: LUNGS: No active pulmonary disease. PLEURA: No significant pleural effusion identified, no pneumothorax apparent. CARDIOVASCULAR: No aortic atherosclerotic calcification present. Normal cardiac size. Permanent pacemaker. No congestive change nasogastric tube extends to left upper quadrant. OSSEOUS STRUCTURES: No significant abnormalities. VISUALIZED UPPER ABDOMEN: Normal. OTHER FINDINGS: None. IMPRESSION: No active disease.
[2018-06-13] MEDS ORDERED: Albumin Human 5% (12.5 gm/250 ml) IV ONE (14:53)
[2018-06-13 15:51] LABS: BASO # 0.02 K/mm3 (0.0-2.0); BASO % 0.1 % (0.0-3.0); HEMOGLOBIN 9.4 g/dL (12.0-16.0); LYMPH # 1.5 (1.2-3.4); LYMPH % 7.5 % (22.0-35.0); MEAN CELL VOLUME 92.9 fl (80.0-105.0); MEAN CORPUSCULAR HEMOGLOBIN 30.2 pg (25.0-35.0); MEAN CORPUSCULAR HGB CONC 32.5 g/dl (31.0-37.0); MEAN PLATELET VOLUME 10.2 fl (7.0-11.0); MONO # 0.5 (0.1-0.6); MONO % 2.6 % (1.0-6.0); RBC 3.11 10^6/uL (3.5-6.1); RED CELL DISTRIBUTION WIDTH 17.9 % (11.5-14.5); WHITE BLOOD COUNT 20.4 10^3/uL (4.5-11.0)
[2018-06-13] MEDS: Dexmedetomidine 400mcg/100mL 400 MCG/100 ML BOTTLE IV PRN (16:00)
[2018-06-13 16:22] LABS: ARTERIAL BLOOD GAS HCO3 18.6 mmol/L (21-28); ARTERIAL BLOOD GAS O2 SAT 98.1 % (95-98); ARTERIAL BLOOD GAS PCO2 30 mm/Hg (35-45); ARTERIAL BLOOD GAS TCO2 19.5 mmol.L (22-28)
--- NOTE | 2018-06-13 16:58 | CP.PCM.PCO ---
Physician Communication Note - Physician Communication Note Physician Communication Note: Pt.seen receiving HD,agitated,1:1on, Norepinephrine,Dobutamine,Vasopress on
--- NOTE | 2018-06-13 17:59 | PN ---
DATE: 06/13/2018 SUBJECTIVE: The patient remains lethargic. OBJECTIVE: VITAL SIGNS: Blood pressure varies from 86 to 123 systolic, heart rates in the 80s. NECK:. Negative JVD. LUNGS: Decreased breath sounds bilaterally. HEART: Reveal S1, S2. EXTREMITIES: Without change. LABORATORY DATA: Potassium is 5.4. Hemoglobin is 8.9. IMPRESSION: 1. Upper gastrointestinal bleed. 2. End-stage renal disease. 3. Anemia. 4. Hypotension. 5. Markedly dilated right ventricle. PLAN: Given these findings, at this time there is no urgency to perform cardiac catheterization, especially given her GI bleed, mental status as well as her ongoing multiple issues. We will continue her IV ionotropic therapy. Chan Berman MD
[2018-06-13 18:13] LABS: BASO # 0.01 K/mm3 (0.0-2.0); BASO % 0.1 % (0.0-3.0); EOS % 0.1 % (1.5-5.0); HEMOGLOBIN 8.9 g/dL (12.0-16.0); LYMPH # 1.7 (1.2-3.4); LYMPH % 9.6 % (22.0-35.0); MEAN CELL VOLUME 94.6 fl (80.0-105.0); MEAN CORPUSCULAR HEMOGLOBIN 29.8 pg (25.0-35.0); MEAN CORPUSCULAR HGB CONC 31.4 g/dl (31.0-37.0); MONO # 0.9 (0.1-0.6); MONO % 5.1 % (1.0-6.0); RBC 2.99 10^6/uL (3.5-6.1); RED CELL DISTRIBUTION WIDTH 18.2 % (11.5-14.5); WHITE BLOOD COUNT 17.4 10^3/uL (4.5-11.0)
--- NOTE | 2018-06-13 18:28 | CP.PCM.CON ---
History of Present Illness - History of Present Illness History of Present Illness: 67 year old female with a history of ESRD on HD, HTN, DM, hypothyroid, CAD s/p CABG, presenting with back pain and breast pain, currently in shock, on pressors, found to have lytic bone lesions and anemia. The patient is currently confused and I am unable to obtain a history from the patient. She was started on a heparin drip for afib and empirically for PE. This AM she was noted to have black material via an OG tube and her heparin had been discontinued. Review of her CT scan shows lytic bone lesions. Past medical, surgical, family, social history cannot be obtained from the patient. Allergies: PCN, oral and IV dye per documentation Review of systems cannot be obtained. Past Patient History - Infectious Disease Hx of Infectious Diseases: None - Past Social History Smoking Status: Former Smoker - CARDIAC Hx Cardiac Disorders: Yes Hx Hypertension: Yes Hx Pacemaker: Yes (x2) Other/Comment: triple Bypass. 5 stents - PULMONARY Hx Respiratory Disorders: No - NEUROLOGICAL Hx Neurological Disorder: No - HEENT Hx HEENT Problems: No - RENAL Date of Last Dialysis Treatment: 06/08/18 - ENDOCRINE/METABOLIC Hx Endocrine Disorders: Yes Hx Diabetes Mellitus Type 2: Yes (diet controlled) - HEMATOLOGICAL/ONCOLOGICAL Hx Blood Disorders: No - INTEGUMENTARY Hx Dermatological Problems: No - MUSCULOSKELETAL/RHEUMATOLOGICAL Hx Musculoskeletal Disorders: Yes Hx Back Pain: Yes Hx Falls: Yes Hx Unsteady Gait: Yes (walker) - GASTROINTESTINAL Hx Gastrointestinal Disorders: No - GENITOURINARY/GYNECOLOGICAL Hx Genitourinary Disorders: No - PSYCHIATRIC Hx Psychophysiologic Disorder: No Hx Substance Use: No - SURGICAL HISTORY Hx Surgeries: Yes (partial foot amputation, stent placement) Hx Coronary Stent: Yes (5) Other/Comment: right av shunt placement. tonsillectomy - ANESTHESIA Hx Anesthesia: Yes Hx Anesthesia Reactions: No Hx Malignant Hyperthermia: No Meds Allergies/Adverse Reactions: Allergies Allergy/AdvReac Type Severity Reaction Status Date / Time Iodinated Contrast- Oral and Allergy RASH Verified 06/09/18 00:23 IV Dye Penicillins Allergy RASH Verified 06/09/18 00:23 - Medications Medications: Current Medications Acetaminophen (Tylenol 325mg Tab) 650 mg PO Q6 PRN PRN Reason: TEMP>=99.5F Last Admin: 06/11/18 12:02 Dose: 650 mg Acetaminophen (Tylenol 650 Mg Supp) 650 mg RC Q6H PRN PRN Reason: TEMP>=99.5F Acetaminophen (Tylenol 650 Mg Supp) 650 mg RC Q6H PRN PRN Reason: Headache Acetaminophen (Tylenol 325mg Tab) 650 mg PO Q6 PRN PRN Reason: Headache Last Admin: 06/12/18 00:58 Dose: 650 mg Atorvastatin Calcium (Lipitor) 80 mg PO HS [facility] Last Admin: 06/12/18 22:35 Dose: Not Given Cinacalcet (Sensipar) 30 mg PO DIN [facility] Last Admin: 06/12/18 19:58 Dose: Not Given Docusate Sodium (Colace) 100 mg PO TID [facility] Last Admin: 06/13/18 11:03 Dose: Not Given Hydrocortisone Sodium Succinate (Solu-Cortef) 50 mg IVP Q6H [facility] Last Admin: 06/13/18 06:38 Dose: 50 mg Aztreonam 500 mg/ Sodium (Chloride) 100 mls @ 100 mls/hr IVPB Q12H [facility]; Protoc ol Stop: 06/21/18 11:01 Last Admin: 06/13/18 11:01 Dose: 100 mls/hr Dopamine HCl/Dextrose (Dopamine 400mg/250ml D5w) 400 mg in 250 mls @ 16.074 mls/hr IV .[id number] PRN; Protocol PRN Reason: TITRATE TO KEEP SBP>=100 MMHG NOREPINEPHRINE BIT/0.9 % NACL (Levophed 4 Mg/ 250 Ml Ns Premixed) 4 mg in 250 mls @ 15 mls/hr IV .[id number] PRN; Protocol PRN Reason: TITRATE PER MD ORDER Last Titration: 06/13/18 08:01 Dose: 7 mcg/min, 26.25 mls/hr Vasopressin 20 units/ Sodium (Chloride) 101 mls @ 9.09 mls/hr IV .[id number] RAISSA; Protocol Last Admin: 06/12/18 22:34 Dose: 9.09 mls/hr Daptomycin 510 mg/ Sodium (Chloride) 100 mls @ 200 mls/hr IV QOTHERDAY RAISSA Stop: 06/17/18 16:01 Last Admin: 06/12/18 18:05 Dose: 200 mls/hr Dobutamine HCl/Dextrose (Dobutamine/Dextrose 5% 500mg/250ml) 500 mg in 250 mls @ 5.144 mls/hr IV .Q24H PRN; Protocol PRN Reason: TITRATE PER PROTOCOL Last Admin: 06/13/18 07:47 Dose: 2 mcg/kg/min, 5.144 mls/hr Pantoprazole Sodium (Protonix 40mg Ivpb) 40 mg in 100 mls @ 20 mls/hr IVPB .Q5H [facility] Last Admin: 06/13/18 11:09 Dose: 20 mls/hr Dexmedetomidine HCl (Precedex 400mcg/100ml) 400 mcg in 100 mls @ 4.286 mls/hr IV .[id number] PRN; Protocol PRN Reason: Agitation Insulin Human Regular (Humulin R Low) 0 units SC ACHS [facility]; Protocol Last Admin: 06/12/18 22:08 Dose: Not Given Levothyroxine Sodium (Synthroid) 25 mcg PO 0600 [facility] Last Admin: 06/13/18 06:38 Dose: Not Given Lorazepam (Ativan) 2 mg IVP ONCE PRN; Protocol PRN Reason: Agitation Last Admin: 06/12/18 19:56 Dose: 2 mg Metronidazole (Flagyl) 500 mg PO Q8 [facility]; Protocol Stop: 06/18/18 14:01 Last Admin: 06/12/18 22:36 Dose: Not Given Midodrine (Proamatine) 2.5 mg PO TID [facility] Last Admin: 06/13/18 11:19 Dose: 2.5 mg Mupirocin (Bactroban Ointment) 0 gm TOP BID [facility] Ondansetron HCl (Zofran Inj) 4 mg IVP Q4H PRN PRN Reason: Nausea/Vomiting Pantoprazole Sodium (Protonix Ec Tab) 40 mg PO 0600 [facility] Last Admin: 06/13/18 06:37 Dose: Not Given Sennosides (Senokot Tab) 17.2 mg PO HS [facility] Last Admin: 06/12/18 22:35 Dose: Not Given Sevelamer HCl (Renagel) 800 mg PO TID [facility] Last Admin: 06/13/18 11:10 Dose: 800 mg Silver Sulfadiazine (Silvadene 1% 25 Gm) 1 gm TP DAILY [facility] Sodium Bicarbonate (Sodium Bicarbonate 8.4% (50 Meq) Syringe) 50 meq IVP ONCE PRN PRN Reason: Other Vitamin B Complex/Vit C/Folic Acid (Nephro-Jose Miguel) 1 tab PO DAILY RAISSA Last Admin: 06/13/18 11:10 Dose: 1 tab Physical Exam - Head Exam Head Exam: ATRAUMATIC - Eye Exam Eye Exam: Normal appearance - ENT Exam ENT Exam: Mucous Membranes Dry - Respiratory Exam Respiratory Exam: NORMAL BREATHING PATTERN - Cardiovascular Exam Cardiovascular Exam: +S1, +S2 - GI/Abdominal Exam GI & Abdominal Exam: Normal Bowel Sounds - Extremities Exam Extremities exam: Positive for: pedal edema - Neurological Exam Neurological exam: Altered - Psychiatric Exam Psychiatric exam: Flat Affect - Skin Skin Exam: Warm Results - Vital Signs Recent Vital Signs: Last Vital Signs Temp 97 F L 06/12/18 08:35 Pulse 83 06/13/18 07:47 Resp 19 06/12/18 20:10 BP 123/85 06/13/18 07:47 Pulse Ox 96 06/12/18 20:01 - Labs Result Diagrams: 06/13/18 18:00 06/13/18 13:00 Labs: Laboratory Results - last 24 hr 06/11/18 06/11/18 06/12/18 11:05 15:44 16:36 WBC RBC Hgb Hct MCV MCH MCHC RDW Plt Count Manual Plt Count MPV Neut % (Auto) Lymph % (Auto) Early % (Auto) Eos % (Auto) Baso % (Auto) Lymph # (Auto) Early # (Auto) Eos # (Auto) Baso # (Auto) Absolute Neuts (auto) Neutrophils % (Manual) Band Neutrophils % Lymphocytes % (Manual) Monocytes % (Manual) Platelet Evaluation PT INR APTT pCO2 pO2 HCO3 ABG pH ABG Total CO2 ABG O2 Saturation ABG Base Excess ABG Potassium VBG pH VBG pCO2 VBG HCO3 VBG Total CO2 VBG O2 Sat (Calc) VBG Base Excess VBG Potassium Glucose Lactate FiO2 Crit Value Called To Crit Value Called By Blood Gas Notified Time Sodium Potassium Chloride Carbon Dioxide Anion Gap BUN Creatinine Est GFR ( Amer) Est GFR (Non-Af Amer) Random Glucose Calcium Phosphorus Magnesium Total Bilirubin Direct Bilirubin AST ALT Alkaline Phosphatase Troponin I Total Protein Albumin Globulin Albumin/Globulin Ratio Procalcitonin 0.17 L Arterial Blood Potassium Venous Blood Potassium Hepatitis Be Antigen Non-reactive HIV 1&2 Ag/Ab, 4th Gen Nonreactive 01/06/13/18 06/13/18 22:41 05:40 05:40 WBC 15.9 H D RBC 3.14 L Hgb 9.4 L Hct 30.0 L MCV 95.5 MCH 29.9 MCHC 31.3 RDW 18.0 H Plt Count 115 L Manual Plt Count 140 MPV 10.9 Neut % (Auto) 91.2 H Lymph % (Auto) 4.3 L Early % (Auto) 4.4 Eos % (Auto) 0.0 L Baso % (Auto) 0.1 Lymph # (Auto) 0.7 L Early # (Auto) 0.7 H Eos # (Auto) 0.0 Baso # (Auto) 0.01 Absolute Neuts (auto) 14.48 H Neutrophils % (Manual) 90 H Band Neutrophils % 2 Lymphocytes % (Manual) 6 L Monocytes % (Manual) 2 Platelet Evaluation Low PT 17.8 H INR 1.60 APTT > 400.0 H* pCO2 pO2 HCO3 ABG pH ABG Total CO2 ABG O2 Saturation ABG Base Excess ABG Potassium VBG pH VBG pCO2 VBG HCO3 VBG Total CO2 VBG O2 Sat (Calc) VBG Base Excess VBG Potassium Glucose Lactate FiO2 Crit Value Called To Crit Value Called By Blood Gas Notified Time Sodium 140 Potassium 5.4 H Chloride 101 Carbon Dioxide 19 L Anion Gap 25 H BUN 47 H Creatinine 10.3 H* Est GFR ( Amer) 5 Est GFR (Non-Af Amer) 4 Random Glucose 186 H Calcium 8.5 Phosphorus 5.6 H Magnesium 2.9 H Total Bilirubin 2.2 H Direct Bilirubin 1.9 H AST 33 ALT 23 Alkaline Phosphatase 129 H Troponin I Total Protein 8.1 Albumin 4.2 Globulin 3.9 Albumin/Globulin Ratio 1.1 Procalcitonin Arterial Blood Potassium Venous Blood Potassium Hepatitis Be Antigen HIV 1&2 Ag/Ab, 4th Gen 06/13/18 06/13/18 06/13/18 05:40 07:40 08:40 WBC RBC Hgb Hct MCV MCH MCHC RDW Plt Count Manual Plt Count MPV Neut % (Auto) Lymph % (Auto) Early % (Auto) Eos % (Auto) Baso % (Auto) Lymph # (Auto) Early # (Auto) Eos # (Auto) Baso # (Auto) Absolute Neuts (auto) Neutrophils % (Manual) Band Neutrophils % Lymphocytes % (Manual) Monocytes % (Manual) Platelet Evaluation PT INR APTT > 400.0 H* pCO2 30 L pO2 90.0 HCO3 15.1 L ABG pH 7.31 L ABG Total CO2 16.0 L ABG O2 Saturation 97.7 ABG Base Excess -9.8 L ABG Potassium 4.5 VBG pH VBG pCO2 VBG HCO3 VBG Total CO2 VBG O2 Sat (Calc) VBG Base Excess VBG Potassium Glucose 173 H Lactate 7.3 H* FiO2 21.0 Crit Value Called To Dr alcaraz Crit Value Called By Fred schroeder Blood Gas Notified Time 2144 Sodium 143.0 Potassium Chloride 106.0 Carbon Dioxide Anion Gap BUN Creatinine Est GFR ( Amer) Est GFR (Non-Af Amer) Random Glucose Calcium Phosphorus Magnesium Total Bilirubin Direct Bilirubin AST ALT Alkaline Phosphatase Troponin I 0.12 Total Protein Albumin Globulin Albumin/Globulin Ratio Procalcitonin Arterial Blood Potassium 4.5 Venous Blood Potassium Hepatitis Be Antigen HIV 1&2 Ag/Ab, 4th Gen 06/13/18 06/13/18 06/13/18 12:00 12:00 12:00 WBC 12.3 H D RBC 3.00 L Hgb 8.9 L Hct 28.7 L MCV 95.7 MCH 29.7 MCHC 31.0 RDW 18.0 H Plt Count 92 L Manual Plt Count MPV 10.5 Neut % (Auto) 86.5 H Lymph % (Auto) 4.8 L Early % (Auto) 8.6 H Eos % (Auto) 0.0 L Baso % (Auto) 0.1 Lymph # (Auto) 0.6 L Early # (Auto) 1.1 H Eos # (Auto) 0.0 Baso # (Auto) 0.01 Absolute Neuts (auto) 10.64 H Neutrophils % (Manual) Band Neutrophils % Lymphocytes % (Manual) Monocytes % (Manual) Platelet Evaluation PT INR APTT > 400.0 H* pCO2 pO2 61 H HCO3 ABG pH ABG Total CO2 ABG O2 Saturation ABG Base Excess ABG Potassium VBG pH 7.22 L VBG pCO2 39.0 L VBG HCO3 16.0 L VBG Total CO2 17.2 L VBG O2 Sat (Calc) 90.5 H VBG Base Excess -11.1 L VBG Potassium 5.2 Glucose 186 H Lactate 10.2 H* FiO2 21.0 Crit Value Called To Crystal Crit Value Called By Ab Blood Gas Notified Time 1210 Sodium 141.0 Potassium Chloride 101.0 Carbon Dioxide Anion Gap BUN Creatinine Est GFR ( Amer) Est GFR (Non-Af Amer) Random Glucose Calcium Phosphorus Magnesium Total Bilirubin Direct Bilirubin AST ALT Alkaline Phosphatase Troponin I Total Protein Albumin Globulin Albumin/Globulin Ratio Procalcitonin Arterial Blood Potassium Venous Blood Potassium 5.2 Hepatitis Be Antigen HIV 1&2 Ag/Ab, 4th Gen 06/13/18 06/13/18 06/13/18 13:00 13:00 15:48 WBC 20.4 H D RBC 3.11 L Hgb 9.4 L Hct 28.9 L MCV 92.9 MCH 30.2 MCHC 32.5 RDW 17.9 H Plt Count 114 L Manual Plt Count MPV 10.2 Neut % (Auto) 89.8 H Lymph % (Auto) 7.5 L Early % (Auto) 2.6 Eos % (Auto) 0.0 L Baso % (Auto) 0.1 Lymph # (Auto) 1.5 Early # (Auto) 0.5 Eos # (Auto) 0.0 Baso # (Auto) 0.02 Absolute Neuts (auto) 18.29 H Neutrophils % (Manual) Band Neutrophils % Lymphocytes % (Manual) Monocytes % (Manual) Platelet Evaluation PT 18.8 H INR 1.66 APTT 137.8 H* pCO2 pO2 HCO3 ABG pH ABG Total CO2 ABG O2 Saturation ABG Base Excess ABG Potassium VBG pH VBG pCO2 VBG HCO3 VBG Total CO2 VBG O2 Sat (Calc) VBG Base Excess VBG Potassium Glucose Lactate FiO2 Crit Value Called To Crit Value Called By Blood Gas Notified Time Sodium 142 Potassium 4.7 Chloride 104 Carbon Dioxide 18 L Anion Gap 24 H BUN 39 H Creatinine 7.9 H* D Est GFR ( Amer) 6 Est GFR (Non-Af Amer) 5 Random Glucose 169 H Calcium 8.7 Phosphorus 5.0 H Magnesium 2.7 H Total Bilirubin 1.8 H Direct Bilirubin AST 35 ALT 18 Alkaline Phosphatase 122 Troponin I Total Protein 7.7 Albumin 4.0 Globulin 3.7 Albumin/Globulin Ratio 1.1 Procalcitonin Arterial Blood Potassium Venous Blood Potassium Hepatitis Be Antigen HIV 1&2 Ag/Ab, 4th Gen 06/13/18 06/13/18 16:18 18:00 WBC 17.4 H RBC 2.99 L Hgb 8.9 L Hct 28.3 L MCV 94.6 MCH 29.8 MCHC 31.4 RDW 18.2 H Plt Count 101 L Manual Plt Count MPV 11.0 Neut % (Auto) 85.1 H Lymph % (Auto) 9.6 L Early % (Auto) 5.1 Eos % (Auto) 0.1 L Baso % (Auto) 0.1 Lymph # (Auto) 1.7 Early # (Auto) 0.9 H Eos # (Auto) 0.0 Baso # (Auto) 0.01 Absolute Neuts (auto) 14.82 H Neutrophils % (Manual) Band Neutrophils % Lymphocytes % (Manual) Monocytes % (Manual) Platelet Evaluation PT INR APTT pCO2 30 L pO2 83.0 HCO3 18.6 L ABG pH 7.40 ABG Total CO2 19.5 L ABG O2 Saturation 98.1 H ABG Base Excess -5.0 L ABG Potassium 3.4 L VBG pH VBG pCO2 VBG HCO3 VBG Total CO2 VBG O2 Sat (Calc) VBG Base Excess VBG Potassium Glucose 127 H Lactate 6.3 H* FiO2 28.0 Crit Value Called To Dr parsons Crit Value Called By Fred schroeder Blood Gas Notified Time 1625 Sodium 143.0 Potassium Chloride 105.0 Carbon Dioxide Anion Gap BUN Creatinine Est GFR ( Amer) Est GFR (Non-Af Amer) Random Glucose Calcium Phosphorus Magnesium Total Bilirubin Direct Bilirubin AST ALT Alkaline Phosphatase Troponin I Total Protein Albumin Globulin Albumin/Globulin Ratio Procalcitonin Arterial Blood Potassium 3.4 L Venous Blood Potassium Hepatitis Be Antigen HIV 1&2 Ag/Ab, 4th Gen Assessment & Plan (1) Thrombocytopenia Assessment and Plan: suspect sepsis related improving with antibiotics will add fibrinogen to rule out DIC Status: Acute (2) Anemia Assessment and Plan: chronic disease and anemia of CKD ? upper GI bleed - heparin discontinued transfusion support PRn ADAM on hold by renal - malignancy w/u in progress Status: Acute (3) Leukocytosis Assessment and Plan: on antibiotics Status: Acute (4) Coagulopathy Assessment and Plan: heparin held check fibrinogen likely nutritional component Status: Acute (5) Lytic bone lesions on xray Assessment and Plan: myeloma w/u sent will add skeletal survey when more stable future bone marrow if monoclonal protein positive Thank you for this interesting consult. Status: Acute
--- NOTE | 2018-06-13 18:32 | CON ---
DATE: 06/13/2018 CHIEF COMPLAINT: Altered mental status. HISTORY OF PRESENT ILLNESS: This is a 67-year-old woman with past medical history of coronary artery disease, status post CABG and 5 stents, end-stage renal disease on hemodialysis on Tuesday, , and Tuesday, hypertension, hyperthyroidism, type 2 diabetes mellitus, came in here for severe right lower back pain and she was initially started after 1 year after had a fall in kitchen, as well as right-sided breast pain for kitchen accident just 1 week ago, and went to ICU after having a on 06/12/2018, where had low systolic blood pressure dropped in the 70s and was started on vasopressin and had a severally dilated right ventricular echocardiogram on 06/12/2018, as well as gram positive cocci and it is a indication that she was having some underlying cardiogenic shock/septic shock. I was called for a evaluation of lethargy. She is currently agitated. She is more awake and she has continuous EEGs had been placed on her. There is no evidence of any seizure like activity. There is mild diffuse slowing. No seizure activity seen. CAT scan of the head showed no acute intracranial abnormalities on 06/12/2018. She is agitated. She is moving all extremities. PAST MEDICAL HISTORY: As above. SOCIAL HISTORY: No illicit drug use, smoking, or EtOH abuse. REVIEW OF SYSTEMS: A 14-point review of systems is negative except as per HPI. ALLERGIES: IODINE CONTRAST, IV DYE AND PENICILLIN. FAMILY HISTORY: Noncontributory. LABORATORY DATA: WBC 20.4, hemoglobin of 9.4, hematocrit of 28.9, and platelet count of 114. Sodium is 142, potassium 4.7, chloride of 104, carbon dioxide of 18, BUN of 39, creatinine 1.7, glucose of 169. PHYSICAL EXAMINATION: GENERAL: The patient is lying in bed, in no acute distress. VITAL SIGNS: The patient's blood pressure today is 123/85, respiratory rate of 18, pulse rate of 83. HEENT: Atraumatic and normocephalic. PERRLA. Extraocular muscles are intact. NECK: Supple. No JVD. No adenopathy noted. LUNGS: Clear to auscultation. No adventitious sounds. HEART: S1 and S2. Normal rate and rhythm. No murmurs, rubs, or gallops. ABDOMEN: Soft, nontender, and nondistended. Bowel sounds present. EXTREMITIES: No clubbing. No cyanosis. Peripheral pulses are 2+ bilaterally. There is some edema in lower extremities. NEUROLOGIC: The patient is lethargic, but follows simple commands, and agitated. Speech is hypophonic, but no aphasia noted. Cranial nerves II through XII are intact. Motor exam; moves all extremities spontaneously. Normal tone. Normal extremities. Sensory; decreased light touch, pinprick, proprioception and decreased vibration to the toes. DTRs are 2+ throughout one on in both knees and ankles. Coordination and gait are deferred for now. IMPRESSION: This is a 67-year-old woman with past medical history of coronary artery disease, status post end-stage renal disease on hemodialysis on Tuesday, , and Tuesday; hypertension, hyperthyroidism, and diabetes, who is currently in Intensive Care Unit for possible cardiogenic/septic shock. I was called in for lethargy secondary to transient cerebral hypoperfusion and underlying toxic metabolic encephalopathy. Unlikely actual seizure, it could a possible provoked seizure. She has lethargy from underlying metabolic and derangements on hypoperfusion. RECOMMENDATIONS: At this time; 1. We will avoid antipsychotic drugs for now. Recommend to continue CAG. So far, mild diffuse and no epileptiform activity. 2. Keep blood pressure from 130s to 140s systolic and diastolic 70s to 80s. 3. Monitor electrolytes and correct accordingly. 4. Continue antibiotics given she is gram positive cocci. 5. Continue 2.5 mg p.o. t.i.d. for better perfusion and continue current and present ICU management. Thank you for this consult. Luis Fernando Dorman MD
--- NOTE | 2018-06-13 20:18 | US ---
HISTORY: Leg pain and swelling. Evaluate for DVT PHYSICIAN(S): Chan Hernández MD. TECHNIQUE: Duplex sonography and color-flow Doppler with graded compression were used to evaluate the deep venous systems of both lower extremities. The exam is limited by edema FINDINGS: The visualized deep venous systems of both lower extremities are sonographically normal and compressible. Normal wave forms and augmentation are seen. There is no sonographic evidence for deep venous thrombosis in the visualized segments of both lower extremities. IMPRESSION: No sonographic evidence for deep venous thrombosis in the visualized segments of both lower extremities.
[2018-06-13] MEDS: Insulin Reg-LOW-Coverage SC SCH ×2 (22:26→22:42)
[2018-06-13] MEDS: NOREPINEPHRINE BIT/0.9 % NACL 4 MG/250 ML BAG IV PRN (23:08)
[2018-06-14 00:15] LABS: VENOUS BLOOD GAS BASE EXCESS -6.2 mmol/L (0.0-2.0); VENOUS BLOOD GAS PO2 52 mm/Hg (30-55); VENOUS BLOOD PH 7.33 (7.32-7.43)
[2018-06-14 00:25] LABS: BASO # 0.01 K/mm3 (0.0-2.0); BASO % 0.1 % (0.0-3.0); EOS % 0.1 % (1.5-5.0); HEMOGLOBIN 9.1 g/dL (12.0-16.0); LYMPH # 0.7 (1.2-3.4); LYMPH % 4.5 % (22.0-35.0); MEAN CELL VOLUME 94.7 fl (80.0-105.0); MEAN CORPUSCULAR HEMOGLOBIN 30.1 pg (25.0-35.0); MEAN CORPUSCULAR HGB CONC 31.8 g/dl (31.0-37.0); MEAN PLATELET VOLUME 10.4 fl (7.0-11.0); MONO # 1.7 (0.1-0.6); MONO % 11.8 % (1.0-6.0); RBC 3.02 10^6/uL (3.5-6.1); WHITE BLOOD COUNT 14.5 10^3/uL (4.5-11.0)
[2018-06-14 05:16] LABS: BASO # 0.01 K/mm3 (0.0-2.0); BASO % 0.1 % (0.0-3.0); HEMOGLOBIN 8.5 g/dL (12.0-16.0); LYMPH # 0.8 (1.2-3.4); LYMPH % 5.1 % (22.0-35.0); MEAN CELL VOLUME 95.7 fl (80.0-105.0); MEAN CORPUSCULAR HEMOGLOBIN 30.2 pg (25.0-35.0); MEAN CORPUSCULAR HGB CONC 31.6 g/dl (31.0-37.0); MEAN PLATELET VOLUME 10.4 fl (7.0-11.0); MONO # 1.5 (0.1-0.6); MONO % 9.9 % (1.0-6.0); RBC 2.81 10^6/uL (3.5-6.1); RED CELL DISTRIBUTION WIDTH 18.2 % (11.5-14.5); WHITE BLOOD COUNT 15.2 10^3/uL (4.5-11.0)
[2018-06-14 05:32] LABS: VENOUS BLOOD GAS BASE EXCESS -5.4 mmol/L (0.0-2.0); VENOUS BLOOD GAS PO2 61 mm/Hg (30-55); VENOUS BLOOD PH 7.33 (7.32-7.43)
[2018-06-14] MEDS: Pantoprazole 40mg/100mL NS 40 MG/100 ML BAG IVPB SCH ×4 (05:37→21:51)
[2018-06-14] MEDS: Pantoprazole 40 mg EC Tab PO SCH (05:38)
[2018-06-14] MEDS: Levothyroxine 25 MCG TAB PO SCH (05:40)
[2018-06-14 06:55] LABS: ALB/GLOB RATIO 1.1 (1.1-1.8); ALBUMIN 4.2 g/dL (3.0-4.8); BILIRUBIN,DIRECT 1.7 mg/dL (0.0-0.4); CALCIUM 8.5 mg/dL (8.4-10.5); TROPONIN I 0.15 ng/mL
[2018-06-14] MEDS: NOREPINEPHRINE BIT/0.9 % NACL 4 MG/250 ML BAG IV PRN ×2 (08:17→17:58)
[2018-06-14] MEDS: Insulin Reg-LOW-Coverage SC SCH ×4 (08:56→21:39)
[2018-06-14] MEDS: Multivitamin Vitamin B Complex (Nephro-Vite) Tab PO SCH (09:00)
[2018-06-14 09:21] LABS: VENOUS BLOOD GAS BASE EXCESS -5.6 mmol/L (0.0-2.0); VENOUS BLOOD GAS PO2 65 mm/Hg (30-55); VENOUS BLOOD PH 7.35 (7.32-7.43)
--- NOTE | 2018-06-14 09:22 | CP.CCUPN ---
<RosendoLaurie parekh - Last Filed: 06/14/18 12:31> CCU Subjective - Physician Review Subjective (Free Text): Laurie Bain, PGY 1 Critical Care Progress Note Patient seen and examined at bedside this morning. No acute events reported overnight however patient is agitated and making incoherent sounds; currently on precedix. BP stable overnight, titrating down pressors as tolerated. S/p HD yesterday. Plan for HD today. Will continue with antibiotics. 12 point ROS limited due to patient status. CCU Objective - Vital Signs / Intake & Output Vital Signs (Last 4 hours): Vital Signs Temp Pulse Resp BP 06/14/18 06:00 98.6 F 78 14 112/28 L Intake and Output (Last 8hrs): Intake & Output 06/13/18 06/14/18 06/14/18 22:59 06:59 14:59 Intake Total 980 250 280 Output Total 1000 Balance -20 250 280 Intake: IV 980 250 280 Right External Jugular 930 Oral 0 Output: Urine 0 Urine, Voided 0 Other 1000 - Physical Exam Head: Positive for: Atraumatic, Normocephalic, Other (moderate edema to face) Pupils: Positive for: PERRL Extroacular Muscles: Positive for: EOMI Conjunctiva: Positive for: Normal Mouth: Positive for: Moist Mucous Membranes Neck: Positive for: Normal Range of Motion Respiratory/Chest: Positive for: Clear to Auscultation, Good Air Exchange. Negative for: Respiratory Distress, Accessory Muscle Use Cardiovascular: Positive for: Regular Rate and Rhythm, Normal S1, S2. Negative for: Murmurs Abdomen: Negative for: Tenderness, Distention, Peritoneal Signs Breast/Axillary: Positive for: Erythema (+erythema to the R breast proximal to the nipple with induration without palpable mass or abscess). Negative for: Axillary Lymphad, Discoloration, Fluctuance, Masses, Nipple Discharge, Swelling, Symmetrical, Tender to Palpation Back: Positive for: Normal Inspection Upper Extremity: Positive for: Normal Inspection. Negative for: Cyanosis, Edema Lower Extremity: Positive for: Edema (non-pitting) Neurological: Positive for: GCS=15, Motor Func Grossly Intact, Other (moving extremities spontaneously past midline) Skin: Positive for: Warm, Dry, Normal Color. Negative for: Rashes Psychiatric: Positive for: Alert, Other (lethargic ) - Medications Active Medications: Active Medications Generic Name Dose Route Start Last Admin Trade Name Freq PRN Reason Stop Dose Admin Acetaminophen 650 mg 06/11/18 02:36 06/11/18 12:02 Tylenol 325mg Tab PO 650 mg Q6 PRN Administration TEMP>=99.5F Acetaminophen 650 mg 06/11/18 02:36 Tylenol 650 Mg Supp RC Q6H PRN TEMP>=99.5F Acetaminophen 650 mg 06/11/18 02:41 Tylenol 650 Mg Supp RC Q6H PRN Headache Acetaminophen 650 mg 06/11/18 02:42 06/12/18 00:58 Tylenol 325mg Tab PO 650 mg Q6 PRN Administration Headache Atorvastatin Calcium 80 mg 06/11/18 22:00 06/13/18 22:44 Lipitor PO Not Given HS RAISSA Cinacalcet 30 mg 06/11/18 02:45 06/13/18 18:40 Sensipar PO Not Given DIN RAISSA Docusate Sodium 100 mg 06/11/18 10:00 06/13/18 18:27 Colace PO Not Given TID RAISSA Heparin Sodium (Porcine) 5,000 units 06/14/18 08:15 06/14/18 08:55 Heparin SC 5,000 units Q8 RAISSA Administration Protocol Hydrocortisone Sodium Succinate 50 mg 06/12/18 17:30 06/14/18 05:39 Solu-Cortef IVP 50 mg Q6H RAISSA Administration Aztreonam 500 mg/ Sodium 100 mls @ 100 mls/hr 06/11/18 11:00 06/13/18 22:59 Chloride IVPB 06/21/18 11:01 100 mls/hr Q12H RAISSA Administration Protocol Dopamine HCl/Dextrose 400 mg in 250 mls @ 16.074 mls/hr 06/12/18 11:19 Dopamine 400mg/250ml D5w IV .[id number] PRN TITRATE TO KEEP SBP>=100 MMHG Protocol 5 MCG/KG/MIN NOREPINEPHRINE BIT/0.9 % NACL 4 mg in 250 mls @ 15 mls/hr 06/12/18 11:26 06/14/18 08:17 Levophed 4 Mg/ 250 Ml Ns Premixed IV 8 mcg/min .[id number] PRN 30 mls/hr TITRATE PER MD ORDER Administration Protocol 4 MCG/MIN Vasopressin 20 units/ Sodium 101 mls @ 9.09 mls/hr 06/12/18 11:30 06/13/18 23:03 Chloride IV 9.09 mls/hr .[id number] RAISSA Administration Protocol 0.03 U/MIN Daptomycin 510 mg/ Sodium 100 mls @ 200 mls/hr 06/12/18 16:00 06/12/18 18:05 Chloride IV 06/17/18 16:01 200 mls/hr QOTHERDAY RAISSA Administration Dobutamine HCl/Dextrose 500 mg in 250 mls @ 5.144 mls/hr 06/12/18 16:04 06/14/18 08:18 Dobutamine/Dextrose 5% 500mg/250ml IV 4 mcg/kg/min .Q24H PRN 10.287 mls/hr TITRATE PER PROTOCOL Titration Protocol 2 MCG/KG/MIN Pantoprazole Sodium 40 mg in 100 mls @ 20 mls/hr 06/13/18 10:30 06/14/18 05:37 Protonix 40mg Ivpb IVPB 20 mls/hr .Q5H RAISSA Administration Dexmedetomidine HCl 400 mcg in 100 mls @ 4.286 mls/hr 06/13/18 17:24 06/14/18 08:15 Precedex 400mcg/100ml IV 0 mcg/kg/hr .[id number] PRN 0 mls/hr Agitation Titration Protocol 0.2 MCG/KG/HR Metronidazole 500 mg in 100 mls @ 100 mls/hr 06/14/18 14:00 Flagyl IVPB 06/19/18 14:00 Q8 [facility] Protocol Insulin Human Regular 0 units 06/11/18 07:30 06/14/18 08:56 Humulin R Low SC Not Given ACHS [facility] Protocol Levothyroxine Sodium 25 mcg 06/12/18 06:00 06/14/18 05:40 Synthroid PO Not Given 0600 [facility] Lorazepam 2 mg 06/12/18 14:35 06/12/18 19:56 Ativan IVP 2 mg ONCE PRN Administration Agitation Protocol Midodrine 2.5 mg 06/11/18 10:00 06/14/18 09:00 Proamatine PO Not Given TID [facility] Mupirocin 0 gm 06/13/18 18:00 Bactroban Ointment TOP BID RAISSA Ondansetron HCl 4 mg 06/11/18 02:36 Zofran Inj IVP Q4H PRN Nausea/Vomiting Pantoprazole Sodium 40 mg 06/11/18 06:00 06/14/18 05:38 Protonix Ec Tab PO Not Given 0600 [facility] Sennosides 17.2 mg 06/11/18 22:00 06/13/18 22:44 Senokot Tab PO Not Given HS [facility] Sevelamer HCl 800 mg 06/11/18 10:00 06/14/18 09:00 Renagel PO Not Given TID [facility] Silver Sulfadiazine 1 gm 06/11/18 10:00 Silvadene 1% 25 Gm TP DAILY [facility] Sodium Bicarbonate 50 meq 06/12/18 16:53 Sodium Bicarbonate 8.4% (50 Meq) Syringe IVP ONCE PRN Other Vitamin B Complex/Vit C/Folic Acid 1 tab 06/11/18 10:00 06/14/18 09:00 Nephro-Jose Miguel PO Not Given DAILY RAISSA - Patient Studies Lab Studies: Microbiology Studies 06/10/18 23:15 Blood Culture - Preliminary Blood NO GROWTH AFTER 3 DAYS 06/10/18 22:45 Blood Culture - Preliminary Blood NO GROWTH AFTER 3 DAYS 06/13/18 13:00 Gram Stain - Final Foot - Left 06/12/18 08:50 Blood Culture - Preliminary Blood-Venous Gram Positive Cocci Gram Stain - Final 06/12/18 08:30 Blood Culture - Preliminary Blood-Venous Gram Positive Cocci Gram Stain - Final Lab Studies 06/14/18 06/14/18 06/14/18 Range/Units 05:00 04:45 04:45 WBC 15.2 H (4.5-11.0) 10^3/uL RBC 2.81 L (3.5-6.1) 10^6/uL Hgb 8.5 L (12.0-16.0) g/dL Hct 26.9 L (36.0-48.0) % MCV 95.7 (80.0-105.0) fl MCH 30.2 (25.0-35.0) pg MCHC 31.6 (31.0-37.0) g/dl RDW 18.2 H (11.5-14.5) % Plt Count 99 L (120.0-450.0) 10^3/uL MPV 10.4 (7.0-11.0) fl Neut % (Auto) 84.9 H (50.0-68.0) % Lymph % (Auto) 5.1 L (22.0-35.0) % [place] % (Auto) 9.9 H (1.0-6.0) % Eos % (Auto) 0.0 L (1.5-5.0) % Baso % (Auto) 0.1 (0.0-3.0) % Lymph # (Auto) 0.8 L (1.2-3.4) [place] # (Auto) 1.5 H (0.1-0.6) Eos # (Auto) 0.0 (0.0-0.7) Baso # (Auto) 0.01 (0.0-2.0) K/mm3 Absolute Neuts (auto) 12.90 H (1.4-6.5) PT (9.4-12.5) SECONDS INR APTT (26.9-38.3) Seconds Fibrinogen 240 (200-400) mg/dl pCO2 (35-45) mm/Hg pO2 61 H (30-55) mm/Hg HCO3 (21-28) mmol/L ABG pH (7.35-7.45) ABG Total CO2 (22-28) mmol.L ABG O2 Saturation (95-98) % ABG Base Excess (-2.0-3.0) mmol/L ABG Potassium (3.6-5.2) mmol/L VBG pH 7.33 (7.32-7.43) VBG pCO2 38.0 L (40-60) VBG HCO3 20.0 L (21-28) mmol/l VBG Total CO2 21.2 L (22-28) mmol.L VBG O2 Sat (Calc) 93.3 H (40-65) % VBG Base Excess -5.4 L (0.0-2.0) mmol/L VBG Potassium 5.2 (3.6-5.2) mmol/L Sodium 136.0 (132-148) mmol/L Chloride 101.0 (98-107) mmol/L Glucose 176 H (65-105) mg/dl Lactate 7.4 H* (0.7-2.1) mmol/L FiO2 21.0 % Crit Value Called To Bull holcomb rn icu Crit Value Called By Jsm Blood Gas Notified Time 532 Potassium (3.6-5.0) mmol/L Carbon Dioxide (21-33) mmol/L Anion Gap (10-20) BUN (7-21) mg/dL Creatinine (0.7-1.2) mg/dl Est GFR ( Amer) Est GFR (Non-Af Amer) Random Glucose (70-110) mg/dL Calcium (8.4-10.5) mg/dL Phosphorus (2.5-4.5) mg/dL Magnesium (1.7-2.2) mg/dL Lavern Transferrin Receptr (0.76-1.76) mg/L Total Bilirubin (0.2-1.3) mg/dL Direct Bilirubin (0.0-0.4) mg/dL AST (14-36) U/L ALT (7-56) U/L Alkaline Phosphatase (38-126) U/L Troponin I ng/mL Total Protein (5.8-8.3) g/dL Total Protein (PEP) (6.1-8.1) g/dL Albumin (3.0-4.8) g/dL Globulin gm/dL Albumin/Globulin Ratio (1.1-1.8) Arterial Blood Potassium (3.6-5.2) mmol/L Venous Blood Potassium 5.2 (3.6-5.2) mmol/L HIV 1&2 Ag/Ab, 4th Gen (Nonreactive) 06/14/18 06/13/18 06/13/18 Range/Units 04:45 23:59 23:50 WBC 14.5 H (4.5-11.0) 10^3/uL RBC 3.02 L (3.5-6.1) 10^6/uL Hgb 9.1 L (12.0-16.0) g/dL Hct 28.6 L (36.0-48.0) % MCV 94.7 (80.0-105.0) fl MCH 30.1 (25.0-35.0) pg MCHC 31.8 (31.0-37.0) g/dl RDW 18.0 H (11.5-14.5) % Plt Count 89 L (120.0-450.0) 10^3/uL MPV 10.4 (7.0-11.0) fl Neut % (Auto) 83.5 H (50.0-68.0) % Lymph % (Auto) 4.5 L (22.0-35.0) % [place] % (Auto) 11.8 H (1.0-6.0) % Eos % (Auto) 0.1 L (1.5-5.0) % Baso % (Auto) 0.1 (0.0-3.0) % Lymph # (Auto) 0.7 L (1.2-3.4) [place] # (Auto) 1.7 H (0.1-0.6) Eos # (Auto) 0.0 (0.0-0.7) Baso # (Auto) 0.01 (0.0-2.0) K/mm3 Absolute Neuts (auto) 12.11 H (1.4-6.5) PT (9.4-12.5) SECONDS INR APTT (26.9-38.3) Seconds Fibrinogen (200-400) mg/dl pCO2 (35-45) mm/Hg pO2 52 (30-55) mm/Hg HCO3 (21-28) mmol/L ABG pH (7.35-7.45) ABG Total CO2 (22-28) mmol.L ABG O2 Saturation (95-98) % ABG Base Excess (-2.0-3.0) mmol/L ABG Potassium (3.6-5.2) mmol/L VBG pH 7.33 (7.32-7.43) VBG pCO2 36.0 L (40-60) VBG HCO3 19.0 L (21-28) mmol/l VBG Total CO2 20.1 L (22-28) mmol.L VBG O2 Sat (Calc) 87.4 H (40-65) % VBG Base Excess -6.2 L (0.0-2.0) mmol/L VBG Potassium 4.9 (3.6-5.2) mmol/L Sodium 138 140.0 (132-148) mmol/L Chloride 99 99.0 (98-107) mmol/L Glucose 159 H (65-105) mg/dl Lactate 8.1 H* (0.7-2.1) mmol/L FiO2 21.0 % Crit Value Called To Vicenta matias rn icu Crit Value Called By pauline Blood Gas Notified Time 15 Potassium 5.6 H* (3.6-5.0) mmol/L Carbon Dioxide 19 L (21-33) mmol/L Anion Gap 27 H (10-20) BUN 38 H (7-21) mg/dL Creatinine 7.1 H (0.7-1.2) mg/dl Est GFR ( Amer) 7 Est GFR (Non-Af Amer) 6 Random Glucose 161 H (70-110) mg/dL Calcium 8.5 (8.4-10.5) mg/dL Phosphorus 5.9 H (2.5-4.5) mg/dL Magnesium 2.5 H (1.7-2.2) mg/dL Lavern Transferrin Receptr (0.76-1.76) mg/L Total Bilirubin 2.0 H (0.2-1.3) mg/dL Direct Bilirubin 1.7 H (0.0-0.4) mg/dL AST 42 H (14-36) U/L ALT 21 (7-56) U/L Alkaline Phosphatase 107 (38-126) U/L Troponin I 0.15 H* D ng/mL Total Protein 7.9 (5.8-8.3) g/dL Total Protein (PEP) (6.1-8.1) g/dL Albumin 4.2 (3.0-4.8) g/dL Globulin 3.7 gm/dL Albumin/Globulin Ratio 1.1 (1.1-1.8) Arterial Blood Potassium (3.6-5.2) mmol/L Venous Blood Potassium 4.9 (3.6-5.2) mmol/L HIV 1&2 Ag/Ab, 4th Gen (Nonreactive) 06/13/18 06/13/18 06/13/18 Range/Units 18:00 16:18 15:48 WBC 17.4 H 20.4 H D (4.5-11.0) 10^3/uL RBC 2.99 L 3.11 L (3.5-6.1) 10^6/uL Hgb 8.9 L 9.4 L (12.0-16.0) g/dL Hct 28.3 L 28.9 L (36.0-48.0) % MCV 94.6 92.9 (80.0-105.0) fl MCH 29.8 30.2 (25.0-35.0) pg MCHC 31.4 32.5 (31.0-37.0) g/dl RDW 18.2 H 17.9 H (11.5-14.5) % Plt Count 101 L 114 L (120.0-450.0) 10^3/uL MPV 11.0 10.2 (7.0-11.0) fl Neut % (Auto) 85.1 H 89.8 H (50.0-68.0) % Lymph % (Auto) 9.6 L 7.5 L (22.0-35.0) % [place] % (Auto) 5.1 2.6 (1.0-6.0) % Eos % (Auto) 0.1 L 0.0 L (1.5-5.0) % Baso % (Auto) 0.1 0.1 (0.0-3.0) % Lymph # (Auto) 1.7 1.5 (1.2-3.4) [place] # (Auto) 0.9 H 0.5 (0.1-0.6) Eos # (Auto) 0.0 0.0 (0.0-0.7) Baso # (Auto) 0.01 0.02 (0.0-2.0) K/mm3 Absolute Neuts (auto) 14.82 H 18.29 H (1.4-6.5) PT (9.4-12.5) SECONDS INR APTT (26.9-38.3) Seconds Fibrinogen (200-400) mg/dl pCO2 30 L (35-45) mm/Hg pO2 83.0 (30-55) mm/Hg HCO3 18.6 L (21-28) mmol/L ABG pH 7.40 (7.35-7.45) ABG Total CO2 19.5 L (22-28) mmol.L ABG O2 Saturation 98.1 H (95-98) % ABG Base Excess -5.0 L (-2.0-3.0) mmol/L ABG Potassium 3.4 L (3.6-5.2) mmol/L VBG pH (7.32-7.43) VBG pCO2 (40-60) VBG HCO3 (21-28) mmol/l VBG Total CO2 (22-28) mmol.L VBG O2 Sat (Calc) (40-65) % VBG Base Excess (0.0-2.0) mmol/L VBG Potassium (3.6-5.2) mmol/L Sodium 143.0 (132-148) mmol/L Chloride 105.0 (98-107) mmol/L Glucose 127 H (65-105) mg/dl Lactate 6.3 H* (0.7-2.1) mmol/L FiO2 28.0 % Crit Value Called To Dr hall Crit Value Called By Fred schroeder Blood Gas Notified Time 1625 Potassium (3.6-5.0) mmol/L Carbon Dioxide (21-33) mmol/L Anion Gap (10-20) BUN (7-21) mg/dL Creatinine (0.7-1.2) mg/dl Est GFR ( Amer) Est GFR (Non-Af Amer) Random Glucose (70-110) mg/dL Calcium (8.4-10.5) mg/dL Phosphorus (2.5-4.5) mg/dL Magnesium (1.7-2.2) mg/dL Lavern Transferrin Receptr (0.76-1.76) mg/L Total Bilirubin (0.2-1.3) mg/dL Direct Bilirubin (0.0-0.4) mg/dL AST (14-36) U/L ALT (7-56) U/L Alkaline Phosphatase (38-126) U/L Troponin I ng/mL Total Protein (5.8-8.3) g/dL Total Protein (PEP) (6.1-8.1) g/dL Albumin (3.0-4.8) g/dL Globulin gm/dL Albumin/Globulin Ratio (1.1-1.8) Arterial Blood Potassium 3.4 L (3.6-5.2) mmol/L Venous Blood Potassium (3.6-5.2) mmol/L HIV 1&2 Ag/Ab, 4th Gen (Nonreactive) 06/13/18 06/13/18 06/13/18 Range/Units 13:00 13:00 12:00 WBC (4.5-11.0) 10^3/uL RBC (3.5-6.1) 10^6/uL Hgb (12.0-16.0) g/dL Hct (36.0-48.0) % MCV (80.0-105.0) fl MCH (25.0-35.0) pg MCHC (31.0-37.0) g/dl RDW (11.5-14.5) % Plt Count (120.0-450.0) 10^3/uL MPV (7.0-11.0) fl Neut % (Auto) (50.0-68.0) % Lymph % (Auto) (22.0-35.0) % [place] % (Auto) (1.0-6.0) % Eos % (Auto) (1.5-5.0) % Baso % (Auto) (0.0-3.0) % Lymph # (Auto) (1.2-3.4) [place] # (Auto) (0.1-0.6) Eos # (Auto) (0.0-0.7) Baso # (Auto) (0.0-2.0) K/mm3 Absolute Neuts (auto) (1.4-6.5) PT 18.8 H (9.4-12.5) SECONDS INR 1.66 APTT 137.8 H* (26.9-38.3) Seconds Fibrinogen (200-400) mg/dl pCO2 (35-45) mm/Hg pO2 61 H (30-55) mm/Hg HCO3 (21-28) mmol/L ABG pH (7.35-7.45) ABG Total CO2 (22-28) mmol.L ABG O2 Saturation (95-98) % ABG Base Excess (-2.0-3.0) mmol/L ABG Potassium (3.6-5.2) mmol/L VBG pH 7.22 L (7.32-7.43) VBG pCO2 39.0 L (40-60) VBG HCO3 16.0 L (21-28) mmol/l VBG Total CO2 17.2 L (22-28) mmol.L VBG O2 Sat (Calc) 90.5 H (40-65) % VBG Base Excess -11.1 L (0.0-2.0) mmol/L VBG Potassium 5.2 (3.6-5.2) mmol/L Sodium 142 141.0 (132-148) mmol/L Chloride 104 101.0 (98-107) mmol/L Glucose 186 H (65-105) mg/dl Lactate 10.2 H* (0.7-2.1) mmol/L FiO2 21.0 % Crit Value Called To Crystal Crit Value Called By Ab Blood Gas Notified Time 1210 Potassium 4.7 (3.6-5.0) mmol/L Carbon Dioxide 18 L (21-33) mmol/L Anion Gap 24 H (10-20) BUN 39 H (7-21) mg/dL Creatinine 7.9 H* D (0.7-1.2) mg/dl Est GFR ( Amer) 6 Est GFR (Non-Af Amer) 5 Random Glucose 169 H (70-110) mg/dL Calcium 8.7 (8.4-10.5) mg/dL Phosphorus 5.0 H (2.5-4.5) mg/dL Magnesium 2.7 H (1.7-2.2) mg/dL Lavern Transferrin Receptr (0.76-1.76) mg/L Total Bilirubin 1.8 H (0.2-1.3) mg/dL Direct Bilirubin (0.0-0.4) mg/dL AST 35 (14-36) U/L ALT 18 (7-56) U/L Alkaline Phosphatase 122 (38-126) U/L Troponin I ng/mL Total Protein 7.7 (5.8-8.3) g/dL Total Protein (PEP) (6.1-8.1) g/dL Albumin 4.0 (3.0-4.8) g/dL Globulin 3.7 gm/dL Albumin/Globulin Ratio 1.1 (1.1-1.8) Arterial Blood Potassium (3.6-5.2) mmol/L Venous Blood Potassium 5.2 (3.6-5.2) mmol/L HIV 1&2 Ag/Ab, 4th Gen (Nonreactive) 06/13/18 06/13/18 06/13/18 Range/Units 12:00 12:00 05:40 WBC 12.3 H D (4.5-11.0) 10^3/uL RBC 3.00 L (3.5-6.1) 10^6/uL Hgb 8.9 L (12.0-16.0) g/dL Hct 28.7 L (36.0-48.0) % MCV 95.7 (80.0-105.0) fl MCH 29.7 (25.0-35.0) pg MCHC 31.0 (31.0-37.0) g/dl RDW 18.0 H (11.5-14.5) % Plt Count 92 L (120.0-450.0) 10^3/uL MPV 10.5 (7.0-11.0) fl Neut % (Auto) 86.5 H (50.0-68.0) % Lymph % (Auto) 4.8 L (22.0-35.0) % [place] % (Auto) 8.6 H (1.0-6.0) % Eos % (Auto) 0.0 L (1.5-5.0) % Baso % (Auto) 0.1 (0.0-3.0) % Lymph # (Auto) 0.6 L (1.2-3.4) [place] # (Auto) 1.1 H (0.1-0.6) Eos # (Auto) 0.0 (0.0-0.7) Baso # (Auto) 0.01 (0.0-2.0) K/mm3 Absolute Neuts (auto) 10.64 H (1.4-6.5) PT (9.4-12.5) SECONDS INR APTT > 400.0 H* (26.9-38.3) Seconds Fibrinogen (200-400) mg/dl pCO2 (35-45) mm/Hg pO2 (30-55) mm/Hg HCO3 (21-28) mmol/L ABG pH (7.35-7.45) ABG Total CO2 (22-28) mmol.L ABG O2 Saturation (95-98) % ABG Base Excess (-2.0-3.0) mmol/L ABG Potassium (3.6-5.2) mmol/L VBG pH (7.32-7.43) VBG pCO2 (40-60) VBG HCO3 (21-28) mmol/l VBG Total CO2 (22-28) mmol.L VBG O2 Sat (Calc) (40-65) % VBG Base Excess (0.0-2.0) mmol/L VBG Potassium (3.6-5.2) mmol/L Sodium (132-148) mmol/L Chloride (98-107) mmol/L Glucose (65-105) mg/dl Lactate (0.7-2.1) mmol/L FiO2 % Crit Value Called To Crit Value Called By Blood Gas Notified Time Potassium (3.6-5.0) mmol/L Carbon Dioxide (21-33) mmol/L Anion Gap (10-20) BUN (7-21) mg/dL Creatinine (0.7-1.2) mg/dl Est GFR ( Amer) Est GFR (Non-Af Amer) Random Glucose (70-110) mg/dL Calcium (8.4-10.5) mg/dL Phosphorus (2.5-4.5) mg/dL Magnesium (1.7-2.2) mg/dL Lavern Transferrin Receptr (0.76-1.76) mg/L Total Bilirubin (0.2-1.3) mg/dL Direct Bilirubin (0.0-0.4) mg/dL AST (14-36) U/L ALT (7-56) U/L Alkaline Phosphatase (38-126) U/L Troponin I ng/mL Total Protein (5.8-8.3) g/dL Total Protein (PEP) 7.5 (6.1-8.1) g/dL Albumin (3.0-4.8) g/dL Globulin gm/dL Albumin/Globulin Ratio (1.1-1.8) Arterial Blood Potassium (3.6-5.2) mmol/L Venous Blood Potassium (3.6-5.2) mmol/L HIV 1&2 Ag/Ab, 4th Gen (Nonreactive) 06/11/18 06/11/18 Range/Units 11:05 05:00 WBC (4.5-11.0) 10^3/uL RBC (3.5-6.1) 10^6/uL Hgb (12.0-16.0) g/dL Hct (36.0-48.0) % MCV (80.0-105.0) fl MCH (25.0-35.0) pg MCHC (31.0-37.0) g/dl RDW (11.5-14.5) % Plt Count (120.0-450.0) 10^3/uL MPV (7.0-11.0) fl Neut % (Auto) (50.0-68.0) % Lymph % (Auto) (22.0-35.0) % [place] % (Auto) (1.0-6.0) % Eos % (Auto) (1.5-5.0) % Baso % (Auto) (0.0-3.0) % Lymph # (Auto) (1.2-3.4) [place] # (Auto) (0.1-0.6) Eos # (Auto) (0.0-0.7) Baso # (Auto) (0.0-2.0) K/mm3 Absolute Neuts (auto) (1.4-6.5) PT (9.4-12.5) SECONDS INR APTT (26.9-38.3) Seconds Fibrinogen (200-400) mg/dl pCO2 (35-45) mm/Hg pO2 (30-55) mm/Hg HCO3 (21-28) mmol/L ABG pH (7.35-7.45) ABG Total CO2 (22-28) mmol.L ABG O2 Saturation (95-98) % ABG Base Excess (-2.0-3.0) mmol/L ABG Potassium (3.6-5.2) mmol/L VBG pH (7.32-7.43) VBG pCO2 (40-60) VBG HCO3 (21-28) mmol/l VBG Total CO2 (22-28) mmol.L VBG O2 Sat (Calc) (40-65) % VBG Base Excess (0.0-2.0) mmol/L VBG Potassium (3.6-5.2) mmol/L Sodium (132-148) mmol/L Chloride (98-107) mmol/L Glucose (65-105) mg/dl Lactate (0.7-2.1) mmol/L FiO2 % Crit Value Called To Crit Value Called By Blood Gas Notified Time Potassium (3.6-5.0) mmol/L Carbon Dioxide (21-33) mmol/L Anion Gap (10-20) BUN (7-21) mg/dL Creatinine (0.7-1.2) mg/dl Est GFR ( Amer) Est GFR (Non-Af Amer) Random Glucose (70-110) mg/dL Calcium (8.4-10.5) mg/dL Phosphorus (2.5-4.5) mg/dL Magnesium (1.7-2.2) mg/dL [place] Transferrin Receptr 4.22 H (0.76-1.76) mg/L Total Bilirubin (0.2-1.3) mg/dL Direct Bilirubin (0.0-0.4) mg/dL AST (14-36) U/L ALT (7-56) U/L Alkaline Phosphatase (38-126) U/L Troponin I ng/mL Total Protein (5.8-8.3) g/dL Total Protein (PEP) (6.1-8.1) g/dL Albumin (3.0-4.8) g/dL Globulin gm/dL Albumin/Globulin Ratio (1.1-1.8) Arterial Blood Potassium (3.6-5.2) mmol/L Venous Blood Potassium (3.6-5.2) mmol/L HIV 1&2 Ag/Ab, 4th Gen Nonreactive (Nonreactive) Laboratory Results - last 24 hr 06/11/18 06/11/18 06/13/18 05:00 11:05 05:40 WBC RBC Hgb Hct MCV MCH MCHC RDW Plt Count MPV Neut % (Auto) Lymph % (Auto) [place] % (Auto) Eos % (Auto) Baso % (Auto) Lymph # (Auto) [place] # (Auto) Eos # (Auto) Baso # (Auto) Absolute Neuts (auto) PT INR APTT Fibrinogen pCO2 pO2 HCO3 ABG pH ABG Total CO2 ABG O2 Saturation ABG Base Excess ABG Potassium VBG pH VBG pCO2 VBG HCO3 VBG Total CO2 VBG O2 Sat (Calc) VBG Base Excess VBG Potassium Sodium Chloride Glucose Lactate FiO2 Crit Value Called To Crit Value Called By Blood Gas Notified Time Potassium Carbon Dioxide Anion Gap BUN Creatinine Est GFR ( Amer) Est GFR (Non-Af Amer) Random Glucose Calcium Phosphorus Magnesium [place] Transferrin Receptr 4.22 H Total Bilirubin Direct Bilirubin AST ALT Alkaline Phosphatase Troponin I Total Protein Total Protein (PEP) 7.5 Albumin Globulin Albumin/Globulin Ratio Arterial Blood Potassium Venous Blood Potassium HIV 1&2 Ag/Ab, 4th Gen Nonreactive 06/13/18 06/13/18 06/13/18 12:00 12:00 12:00 WBC 12.3 H D RBC 3.00 L Hgb 8.9 L Hct 28.7 L MCV 95.7 MCH 29.7 MCHC 31.0 RDW 18.0 H Plt Count 92 L MPV 10.5 Neut % (Auto) 86.5 H Lymph % (Auto) 4.8 L [place] % (Auto) 8.6 H Eos % (Auto) 0.0 L Baso % (Auto) 0.1 Lymph # (Auto) 0.6 L [place] # (Auto) 1.1 H Eos # (Auto) 0.0 Baso # (Auto) 0.01 Absolute Neuts (auto) 10.64 H PT INR APTT > 400.0 H* Fibrinogen pCO2 pO2 61 H HCO3 ABG pH ABG Total CO2 ABG O2 Saturation ABG Base Excess ABG Potassium VBG pH 7.22 L VBG pCO2 39.0 L VBG HCO3 16.0 L VBG Total CO2 17.2 L VBG O2 Sat (Calc) 90.5 H VBG Base Excess -11.1 L VBG Potassium 5.2 Sodium 141.0 Chloride 101.0 Glucose 186 H Lactate 10.2 H* FiO2 21.0 Crit Value Called To Crystal Crit Value Called By Ab Blood Gas Notified Time 1210 Potassium Carbon Dioxide Anion Gap BUN Creatinine Est GFR ( Amer) Est GFR (Non-Af Amer) Random Glucose Calcium Phosphorus Magnesium [place] Transferrin Receptr Total Bilirubin Direct Bilirubin AST ALT Alkaline Phosphatase Troponin I Total Protein Total Protein (PEP) Albumin Globulin Albumin/Globulin Ratio Arterial Blood Potassium Venous Blood Potassium 5.2 HIV 1&2 Ag/Ab, 4th Gen 06/13/18 06/13/18 06/13/18 13:00 13:00 15:48 WBC 20.4 H D RBC 3.11 L Hgb 9.4 L Hct 28.9 L MCV 92.9 MCH 30.2 MCHC 32.5 RDW 17.9 H Plt Count 114 L MPV 10.2 Neut % (Auto) 89.8 H Lymph % (Auto) 7.5 L [place] % (Auto) 2.6 Eos % (Auto) 0.0 L Baso % (Auto) 0.1 Lymph # (Auto) 1.5 [place] # (Auto) 0.5 Eos # (Auto) 0.0 Baso # (Auto) 0.02 Absolute Neuts (auto) 18.29 H PT 18.8 H INR 1.66 APTT 137.8 H* Fibrinogen pCO2 pO2 HCO3 ABG pH ABG Total CO2 ABG O2 Saturation ABG Base Excess ABG Potassium VBG pH VBG pCO2 VBG HCO3 VBG Total CO2 VBG O2 Sat (Calc) VBG Base Excess VBG Potassium Sodium 142 Chloride 104 Glucose Lactate FiO2 Crit Value Called To Crit Value Called By Blood Gas Notified Time Potassium 4.7 Carbon Dioxide 18 L Anion Gap 24 H BUN 39 H Creatinine 7.9 H* D Est GFR ( Amer) 6 Est GFR (Non-Af Amer) 5 Random Glucose 169 H Calcium 8.7 Phosphorus 5.0 H Magnesium 2.7 H [place] Transferrin Receptr Total Bilirubin 1.8 H Direct Bilirubin AST 35 ALT 18 Alkaline Phosphatase 122 Troponin I Total Protein 7.7 Total Protein (PEP) Albumin 4.0 Globulin 3.7 Albumin/Globulin Ratio 1.1 Arterial Blood Potassium Venous Blood Potassium HIV 1&2 Ag/Ab, 4th Gen 06/13/18 06/13/18 06/13/18 16:18 18:00 23:50 WBC 17.4 H RBC 2.99 L Hgb 8.9 L Hct 28.3 L MCV 94.6 MCH 29.8 MCHC 31.4 RDW 18.2 H Plt Count 101 L MPV 11.0 Neut % (Auto) 85.1 H Lymph % (Auto) 9.6 L [place] % (Auto) 5.1 Eos % (Auto) 0.1 L Baso % (Auto) 0.1 Lymph # (Auto) 1.7 [place] # (Auto) 0.9 H Eos # (Auto) 0.0 Baso # (Auto) 0.01 Absolute Neuts (auto) 14.82 H PT INR APTT Fibrinogen pCO2 30 L pO2 83.0 52 HCO3 18.6 L ABG pH 7.40 ABG Total CO2 19.5 L ABG O2 Saturation 98.1 H ABG Base Excess -5.0 L ABG Potassium 3.4 L VBG pH 7.33 VBG pCO2 36.0 L VBG HCO3 19.0 L VBG Total CO2 20.1 L VBG O2 Sat (Calc) 87.4 H VBG Base Excess -6.2 L VBG Potassium 4.9 Sodium 143.0 140.0 Chloride 105.0 99.0 Glucose 127 H 159 H Lactate 6.3 H* 8.1 H* FiO2 28.0 21.0 Crit Value Called To Dr issa matias photo journalist Crit Value Called By Fred Harper Blood Gas Notified Time 1625 15 Potassium Carbon Dioxide Anion Gap BUN Creatinine Est GFR ( Amer) Est GFR (Non-Af Amer) Random Glucose Calcium Phosphorus Magnesium [place] Transferrin Receptr Total Bilirubin Direct Bilirubin AST ALT Alkaline Phosphatase Troponin I Total Protein Total Protein (PEP) Albumin Globulin Albumin/Globulin Ratio Arterial Blood Potassium 3.4 L Venous Blood Potassium 4.9 HIV 1&2 Ag/Ab, 4th Gen 06/13/18 06/14/18 06/14/18 23:59 04:45 04:45 WBC 14.5 H 15.2 H RBC 3.02 L 2.81 L Hgb 9.1 L 8.5 L Hct 28.6 L 26.9 L MCV 94.7 95.7 MCH 30.1 30.2 MCHC 31.8 31.6 RDW 18.0 H 18.2 H Plt Count 89 L 99 L MPV 10.4 10.4 Neut % (Auto) 83.5 H 84.9 H Lymph % (Auto) 4.5 L 5.1 L [place] % (Auto) 11.8 H 9.9 H Eos % (Auto) 0.1 L 0.0 L Baso % (Auto) 0.1 0.1 Lymph # (Auto) 0.7 L 0.8 L [place] # (Auto) 1.7 H 1.5 H Eos # (Auto) 0.0 0.0 Baso # (Auto) 0.01 0.01 Absolute Neuts (auto) 12.11 H 12.90 H PT INR APTT Fibrinogen pCO2 pO2 HCO3 ABG pH ABG Total CO2 ABG O2 Saturation ABG Base Excess ABG Potassium VBG pH VBG pCO2 VBG HCO3 VBG Total CO2 VBG O2 Sat (Calc) VBG Base Excess VBG Potassium Sodium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 H Eos # (Auto) 0.0 0.0 Baso # (Auto) 0.01 0.01 Absolute Neuts (auto) 12.11 H 12.90 H Fibrinogen pO2 VBG pH VBG pCO2 VBG HCO3 VBG Total CO2 VBG O2 Sat (Calc) VBG Base Excess VBG Potassium Sodium 138 Chloride 99 Glucose Lactate FiO2 Crit Value Called To Crit Value Called By Blood Gas Notified Time Potassium 5.6 H* Carbon Dioxide 19 L Anion Gap 27 H BUN 38 H Creatinine 7.1 H Est GFR ( Amer) 7 Est GFR (Non-Af Amer) 6 Random Glucose 161 H Calcium 8.5 Phosphorus 5.9 H Magnesium 2.5 H Lavern Transferrin Receptr Total Bilirubin 2.0 H Direct Bilirubin 1.7 H AST 42 H ALT 21 Alkaline Phosphatase 107 Ammonia Troponin I 0.15 H* D Total Protein 7.9 Total Protein (PEP) Albumin 4.2 Albumin (PEP) Globulin 3.7 Albumin/Globulin Ratio 1.1 Aedyi-4-Yzrosyhnn Rqexq-8-Oivnllobt Ishl-7-Tfjmrtam Kwtk-6-Bdwnsjre Gamma Globulins Abnorm Protein Band 1 Abnorm Protein Band 2 Abnorm Protein Band 3 Venous Blood Potassium TALON & SPEP Interp Serum Immunofixation Crossmatch 06/14/18 06/14/18 06/14/18 04:45 05:00 08:00 WBC 12.6 H RBC 2.91 L Hgb 8.6 L Hct 27.5 L MCV 94.5 MCH 29.6 MCHC 31.3 RDW 17.9 H Plt Count 86 L Manual Plt Count MPV 10.4 Neut % (Auto) 85.3 H Lymph % (Auto) 7.7 L [place] % (Auto) 6.9 H Eos % (Auto) 0.0 L Baso % (Auto) 0.1 Lymph # (Auto) 1.0 L [place] # (Auto) 0.9 H Eos # (Auto) 0.0 Baso # (Auto) 0.01 Absolute Neuts (auto) 10.71 H Fibrinogen 240 pO2 61 H VBG pH 7.33 VBG pCO2 38.0 L VBG HCO3 20.0 L VBG Total CO2 21.2 L VBG O2 Sat (Calc) 93.3 H VBG Base Excess -5.4 L VBG Potassium 5.2 Sodium 136.0 Chloride 101.0 Glucose 176 H Lactate 7.4 H* FiO2 21.0 Crit Value Called To Bull holcomb photo journalist Crit Value Called By [facility] Blood Gas Notified Time 532 Potassium Carbon Dioxide Anion Gap BUN Creatinine Est GFR ( Amer) Est GFR (Non-Af Amer) Random Glucose Calcium Phosphorus Magnesium Lavern Transferrin Receptr Total Bilirubin Direct Bilirubin AST ALT Alkaline Phosphatase Ammonia Troponin I Total Protein Total Protein (PEP) Albumin Albumin (PEP) Globulin Albumin/Globulin Ratio Nuyxp-9-Kppxbpixz Jthkj-8-Ptvgyvmnj Inug-7-Pmzfnahk Pqjz-0-Mgvbhcxj Gamma Globulins Abnorm Protein Band 1 Abnorm Protein Band 2 Abnorm Protein Band 3 Venous Blood Potassium 5.2 TALON & SPEP Interp Serum Immunofixation Crossmatch 06/14/18 06/14/18 06/14/18 08:13 13:30 13:30 WBC RBC Hgb Hct MCV MCH MCHC RDW Plt Count Manual Plt Count 102 L MPV Neut % (Auto) Lymph % (Auto) [place] % (Auto) Eos % (Auto) Baso % (Auto) Lymph # (Auto) [place] # (Auto) Eos # (Auto) Baso # (Auto) Absolute Neuts (auto) Fibrinogen pO2 65 H VBG pH 7.35 VBG pCO2 35.0 L VBG HCO3 19.3 L VBG Total CO2 20.4 L VBG O2 Sat (Calc) 94.3 H VBG Base Excess -5.6 L VBG Potassium 5.3 H Sodium 138.0 Chloride 100.0 Glucose 187 H Lactate 6.9 H* FiO2 21.0 Crit Value Called To [place] rider Crit Value Called By Ab Blood Gas Notified Time 925 Potassium Carbon Dioxide Anion Gap BUN Creatinine Est GFR ( Amer) Est GFR (Non-Af Amer) Random Glucose Calcium Phosphorus Magnesium Lavern Transferrin Receptr Total Bilirubin Direct Bilirubin AST ALT Alkaline Phosphatase Ammonia 19 Troponin I Total Protein Total Protein (PEP) Albumin Albumin (PEP) Globulin Albumin/Globulin Ratio Aabyr-6-Liuvbdwem Tcods-0-Xrxkqbqys Wbjy-0-Bietzbyq Wjyq-7-Bqvemnrt Gamma Globulins Abnorm Protein Band 1 Abnorm Protein Band 2 Abnorm Protein Band 3 Venous Blood Potassium 5.3 H TALON & SPEP Interp Serum Immunofixation Crossmatch Radiology Impressions: Radiology Impressions Extremity Ultrasound 06/13/18 07:39 IMPRESSION: No sonographic evidence for deep venous thrombosis in the visualized segments of both lower extremities. EKG/Cardiology Studies: Cardiology / EKG Studies 06/14/18 07:00 EKG [ELECTROCARDIOGRAM] DAILY Comment: Reason For Exam: SB 06/15/18 07:00 EKG [ELECTROCARDIOGRAM] DAILY Comment: Reason For Exam: SB Critical Care Progress Note - Nutrition Nutrition: Nutrition Category Date Time Status NPO Diet [DIET] Diets 06/12/18 Breakfast Ordered Attending/Attestation - Attestation I have personally seen and examined this patient.: Yes I have fully participated in the care of the patient.: Yes I have reviewed all pertinent clinical information: Yes Notes (Text): 06/14/18 18:[address] Hall note
[2018-06-14 09:27] LABS: BASO # 0.01 K/mm3 (0.0-2.0); BASO % 0.1 % (0.0-3.0); HEMOGLOBIN 8.6 g/dL (12.0-16.0); LYMPH % 7.7 % (22.0-35.0); MEAN CELL VOLUME 94.5 fl (80.0-105.0); MEAN CORPUSCULAR HEMOGLOBIN 29.6 pg (25.0-35.0); MEAN CORPUSCULAR HGB CONC 31.3 g/dl (31.0-37.0); MEAN PLATELET VOLUME 10.4 fl (7.0-11.0); MONO # 0.9 (0.1-0.6); MONO % 6.9 % (1.0-6.0); RBC 2.91 10^6/uL (3.5-6.1); RED CELL DISTRIBUTION WIDTH 17.9 % (11.5-14.5); WHITE BLOOD COUNT 12.6 10^3/uL (4.5-11.0)
[2018-06-14] MEDS ORDERED: Dextrose 50% SYRINGE Inj (50 ml) IVP ONE (09:48)
[2018-06-14] MEDS ORDERED: Albuterol 0.083% Inhal Sol (2.5 mg/3 mL) UD INH STA (09:48)
[2018-06-14] MEDS ORDERED: Insulin Regular 1 UNITS/0.01 ML ML SC ONE (09:53)
[2018-06-14 10:05] LABS: GLYCOMARK(R) 6.8 mcg/mL (7.5-28.4)
--- NOTE | 2018-06-14 11:48 | PN ---
DATE: 06/14/2018 SUBJECTIVE: The patient seen at bedside. She is comfortable. She is sleeping. She was on Precedex 0.2 mcg/kg per hour throughout the night. The night was uneventful without any agitation or significant fluctuation in hemodynamic status. The patient is on norepinephrine 6 mcg per minute (down from 10 mcg per minute from yesterday), dobutamine 2.5 mcg per kilogram per minute and vasopressin 0.03 units per minute. PHYSICAL EXAMINATION VITAL SIGNS: Blood pressure 106/28, oxygen saturation 100% on 2 liters nasal cannula, heart rate 74 and respiratory rate 15. HEENT: Head and neck atraumatic. LUNGS: Clear to auscultation bilaterally. HEART: Regular rate and rhythm. S1 and S2 distant. ABDOMEN: Soft, nontender and nondistended. MUSCULOSKELETAL: Trace to 1+ bilateral pedal and ankle edema (venous Doppler ultrasound yesterday was negative for DVT). SKIN: Moist. PSYCHIATRIC: The patient is somnolent, but arousable. LABORATORY DATA: WBC 15.2, hemoglobin 8.5 (relatively stable, down from 9.1) and platelet count 99. Troponin 0.15 (up from 0.12), AST 42, ALT 21, total bilirubin 2, sodium 138, potassium 5.6, chloride 99, carbon dioxide 19, BUN 38 and creatinine 7.1. MEDICATIONS: Tylenol p.r.n., Lipitor (was held as the patient unable to take p.o.), aztreonam, Sensipar, daptomycin, Aranesp, Precedex p.r.n., dobutamine, Colace (held), hydrocortisone 50 mg IV every 6 hours, Synthroid 25 mcg p.o., Ativan p.r.n., Flagyl, midodrine held, norepinephrine, Zofran p.r.n., Protonix drip, Senokot, Renagel, vasopressin, vitamin B and vitamin C. ASSESSMENT AND PLAN: This is 67-year-old lady with acute right ventricular failure of unclear etiology, complicated by multiorgan system failure including encephalopathy, cardiomyopathy, hyperbilirubinemia. The patient initially was anticoagulated for atrial fibrillation to prevent stroke and also cover possibility of pulmonary embolism as an etiology of acute right ventricular failure; however, developed upper gastrointestinal bleed and heparin was stopped. Since then hemoglobin remained relatively stable and she was not seen having coffee-ground vomiting or hematemesis. The patient also has Gram-positive cocci bacteremia for which she is on daptomycin (she is also on aztreonam and Infectious Diseases service is following her as well). The patient had hemodialysis yesterday with 1 liter removed, which was supposed to help right ventricle to unload. She tolerated procedure well. Her norepinephrine requirement coming down. Today, I will proceed with CT head. If mental status improves will proceed with V/Q scan as patient has h/o allergy to IV dye.. We will continue with heparin subcutaneously for deep venous thrombosis prophylaxis, has no active bleeding present presently. I will continue to target euvolemia, euglycemia, normothermia and oxygen saturation more than 90%. We will continue with deep venous thrombosis and gastrointestinal prophylaxis. Gastroenterology consult is pending. Protonix drip is ongoing. Cardiology consult is appreciated. Nephrology followup is appreciated. ccm time 40 min [place] Hall MD JACINTA
[2018-06-14] MEDS: DAPTOmycin 510 MG in Sodium Chloride 0.9% 100 ML IV SCH (11:55)
[2018-06-14] MEDS: Dexmedetomidine 400mcg/100mL 400 MCG/100 ML BOTTLE IV PRN (12:01)
--- NOTE | 2018-06-14 12:18 | CARD ---
APPROVED REPORT Date of service: 06/14/2018 EKG Measurement Heart [id number] <Conclusion> Rythm Probably Atrial Fib rillation Moderate Rate. Intermittent Pacemaker Captures. Fusion Beat. RBBB.
[2018-06-14] MEDS: metroNIDAZOLE IV 500 mg/100 ml 500 MG/100 ML BAG IVPB SCH ×2 (13:44→21:52)
[2018-06-14] MEDS: Levothyroxine 100 mcg (0.1 mg) Inj IVP SCH (13:50)
--- NOTE | 2018-06-14 15:05 | CP.PCM.PN ---
Subjective - Date & Time of Evaluation Date of Evaluation: 06/14/18 Time of Evaluation: 15:04 - Subjective Subjective: Nephrology Consultation Note Assessment: critical Shock ? cardiogenic/septic (GPC) Diabetic chronic Kidney Disease (E11.22) Hypertensive Chronic Kidney Disease (I12.0) End stage renal disease (N18.6) dependence on hemodialysis (Z99.2) (TTS) via AVF Anemia (D64.9), Hyperphosphatemia (E83.39), Secondary Hyperparathyroidism (E21.1), HTN (I12.0) CAD s/p CABG obesity thrombocytopenia Lytic lesions ? underlying malignancy breast cellulitis versus malignancy lactic acidosis, GI bleed RV dysfunction, moderate to severe MR Plan: Will plan for extra dialysis today, hopefully will tolerate. Continue with Nephrovite 1 tab/day. PRBC as needed for anemia. defer further ADAM as concerns with malignancy. Hb 8.5 heme/onc following hold phos binders due to AMS, last phos level 5.6 PTH 547 pt started on pressors. maintain hemodynamic stable Glycemic control, Dialysis consistent diet Further work up/management as per primary team Dose meds/antibiotics (if needed) for ESRD status. Avoid fleets enema/magnesium based laxatives. ID following Thanks for allowing me to participate in care of your patient. Will follow patient with you. Please call if any Qs. had d/w team Dr Amrit Malone Office: [phone] Subjective: Noted events overnight. Patients in ICU. on pressors. unable to provide ROS Physical Examination: General Appearance: in no acute respiratory distress, ill appearing Vitals reviewed and noted as below Head; Atraumatic, normocephalic ENT: no ulcers no thrush. Tongue is midline/dry. Oropharynx: no rash or ulcers. Neck; supple no lymphadenopathy, no thyromegaly or bruit Lungs: Normal respiratory rate/effort. Breath sounds bilateral equal and with rales + Heart: Normal rate. s1s2 normal. No rub or gallop. Extremities: no edema. No varicose veins Neurological: Patient is lethargic and AMS status. non communicative Skin: Warm and dry. Normal turgor. No rash. Palpitation: Normal elasticity for age Abdomen: Abdomen is soft. Bowel sounds +. There is no abdominal tenderness, no guarding/rigidity or organomegaly Psych: deferred MSK: no joint tenderness or swelling. Digits and nails normal, no deformity : kidney or bladder not palpable Access: AVF 06/12/18: breast examined with RN, rt breast everardo-areolar swelling fulness ? mass, [place] appearance Labs/imaging reviewed. Past medical history, past surgical history, family history, social history, allergy reviewed and noted as below Family Hx: no hx of CKD. Non contributory Objective - Vital Signs/Intake and Output Vital Signs (last 24 hours): Temp Pulse Resp BP Pulse Ox 98.6 F 78 14 112/28 L 96 06/14/18 06:00 06/14/18 06:00 06/14/18 06:00 06/14/18 06:00 06/12/18 20:01 Intake and Output: 06/14/18 06/14/18 06:59 18:59 Intake Total 300 290 Output Total 1000 Balance -700 290 - Medications Medications: Current Medications Acetaminophen (Tylenol 325mg Tab) 650 mg PO Q6 PRN PRN Reason: TEMP>=99.5F Last Admin: 06/11/18 12:02 Dose: 650 mg Acetaminophen (Tylenol 650 Mg Supp) 650 mg RC Q6H PRN PRN Reason: TEMP>=99.5F Acetaminophen (Tylenol 650 Mg Supp) 650 mg RC Q6H PRN PRN Reason: Headache Acetaminophen (Tylenol 325mg Tab) 650 mg PO Q6 PRN PRN Reason: Headache Last Admin: 06/12/18 00:58 Dose: 650 mg Atorvastatin Calcium (Lipitor) 80 mg PO HS [facility] Last Admin: 06/13/18 22:44 Dose: Not Given Cinacalcet (Sensipar) 30 mg PO DIN [facility] Last Admin: 06/13/18 18:40 Dose: Not Given Docusate Sodium (Colace) 100 mg PO TID [facility] Last Admin: 06/14/18 13:40 Dose: Not Given Heparin Sodium (Porcine) (Heparin) 5,000 units SC Q8 [facility]; Protocol Last Admin: 06/14/18 13:44 Dose: 5,000 units Hydrocortisone Sodium Succinate (Solu-Cortef) 50 mg IVP Q6H [facility] Last Admin: 06/14/18 11:55 Dose: 50 mg Aztreonam 500 mg/ Sodium (Chloride) 100 mls @ 100 mls/hr IVPB Q12H [facility]; Protocol Stop: 06/21/18 11:01 Last Admin: 06/14/18 11:55 Dose: 100 mls/hr Dopamine HCl/Dextrose (Dopamine 400mg/250ml D5w) 400 mg in 250 mls @ 16.074 mls/hr IV .[id number] PRN; Protocol PRN Reason: TITRATE TO KEEP SBP>=100 MMHG NOREPINEPHRINE BIT/0.9 % NACL (Levophed 4 Mg/ 250 Ml Ns Premixed) 4 mg in 250 mls @ 15 mls/hr IV .[id number] PRN; Protocol PRN Reason: TITRATE PER MD ORDER Last Admin: 06/14/18 08:17 Dose: 8 mcg/min, 30 mls/hr Vasopressin 20 units/ Sodium (Chloride) 101 mls @ 9.09 mls/hr IV .Q11H7M [facility]; Protocol Last Admin: 06/13/18 23:03 Dose: 9.09 mls/hr Daptomycin 510 mg/ Sodium (Chloride) 100 mls @ 200 mls/hr IV QOTHERDAY [facility] Stop: 06/17/18 16:01 Last Admin: 06/14/18 11:55 Dose: 200 mls/hr Dobutamine HCl/Dextrose (Dobutamine/Dextrose 5% 500mg/250ml) 500 mg in 250 mls @ 5.144 mls/hr IV .Q24H PRN; Protocol PRN Reason: TITRATE PER PROTOCOL Last Titration: 06/14/18 08:18 Dose: 4 mcg/kg/min, 10.287 mls/hr Pantoprazole Sodium (Protonix 40mg Ivpb) 40 mg in 100 mls @ 20 mls/hr IVPB .Q5H [facility] Last Admin: 06/14/18 05:37 Dose: 20 mls/hr Dexmedetomidine HCl (Precedex 400mcg/100ml) 400 mcg in 100 mls @ 4.286 mls/hr IV .[id number] PRN; Protocol PRN Reason: Agitation Last Admin: 06/14/18 12:01 Dose: 2 mcg/kg/hr, 42.865 mls/hr Metronidazole (Flagyl) 500 mg in 100 mls @ 100 mls/hr IVPB Q8 [facility]; Protocol Stop: 06/19/18 14:00 Last Admin: 06/14/18 13:44 Dose: 100 mls/hr Insulin Human Regular (Humulin R Low) 0 units SC ACHS [facility]; Protocol Last Admin: 06/14/18 12:00 Dose: 2 unit Levothyroxine Sodium (Synthroid) 12.5 mcg IVP DAILY [facility] Last Admin: 06/14/18 13:50 Dose: 12.5 mcg Lorazepam (Ativan) 2 mg IVP ONCE PRN; Protocol PRN Reason: Agitation Last Admin: 06/12/18 19:56 Dose: 2 mg Midodrine (Proamatine) 2.5 mg PO TID [facility] Last Admin: 06/14/18 09:00 Dose: Not Given Mupirocin (Bactroban Ointment) 0 gm TOP BID [facility] Ondansetron HCl (Zofran Inj) 4 mg IVP Q4H PRN PRN Reason: Nausea/Vomiting Pantoprazole Sodium (Protonix Ec Tab) 40 mg PO 0600 [facility] Last Admin: 06/14/18 05:38 Dose: Not Given Sennosides (Senokot Tab) 17.2 mg PO HS [facility] Last Admin: 06/13/18 22:44 Dose: Not Given Sevelamer HCl (Renagel) 800 mg PO TID [facility] Last Admin: 06/14/18 13:38 Dose: Not Given Silver Sulfadiazine (Silvadene 1% 25 Gm) 1 gm TP DAILY [facility] Sodium Bicarbonate (Sodium Bicarbonate 8.4% (50 Meq) Syringe) 50 meq IVP ONCE PRN PRN Reason: Other Vitamin B Complex/Vit C/Folic Acid (Nephro-Jose Miguel) 1 tab PO DAILY [facility] Last Admin: 06/14/18 09:00 Dose: Not Given - Labs Labs: 06/14/18 08:00 06/14/18 04:45 PT 18.8 SECONDS (9.4-12.5) H 06/13/18 13:00 INR 1.66 06/13/18 13:00 APTT 137.8 Seconds (26.9-38.3) H* 06/13/18 13:00
--- NOTE | 2018-06-14 15:20 | CP.PCM.PN ---
Subjective - Date & Time of Evaluation Date of Evaluation: 06/14/18 Time of Evaluation: 14:40 - Subjective Subjective: Still not responding appropriately, no fevers, on nasal cannula, at times agitated. Objective - Vital Signs/Intake and Output Vital Signs (last 24 hours): Temp Pulse Resp BP Pulse Ox 97 F L 83 19 123/85 96 06/12/18 08:35 06/13/18 07:47 06/12/18 20:10 06/13/18 07:47 06/12/18 20:01 Intake and Output: 06/13/18 06/13/18 06:59 18:59 Intake Total 50 200 Balance 50 200 - Medications Medications: Current Medications Acetaminophen (Tylenol 325mg Tab) 650 mg PO Q6 PRN PRN Reason: TEMP>=99.5F Last Admin: 06/11/18 12:02 Dose: 650 mg Acetaminophen (Tylenol 650 Mg Supp) 650 mg RC Q6H PRN PRN Reason: TEMP>=99.5F Acetaminophen (Tylenol 650 Mg Supp) 650 mg RC Q6H PRN PRN Reason: Headache Acetaminophen (Tylenol 325mg Tab) 650 mg PO Q6 PRN PRN Reason: Headache Last Admin: 06/12/18 00:58 Dose: 650 mg Atorvastatin Calcium (Lipitor) 80 mg PO HS [facility] Last Admin: 06/12/18 22:35 Dose: Not Given Cinacalcet (Sensipar) 30 mg PO DIN [facility] Last Admin: 06/12/18 19:58 Dose: Not Given Docusate Sodium (Colace) 100 mg PO TID [facility] Last Admin: 06/12/18 17:34 Dose: Not Given Hydrocortisone Sodium Succinate (Solu-Cortef) 50 mg IVP Q6H [facility] Last Admin: 06/13/18 06:38 Dose: 50 mg Hydroxyzine HCl (Atarax) 25 mg PO Q8H PRN PRN Reason: Itching / Pruritus Aztreonam 500 mg/ Sodium (Chloride) 100 mls @ 100 mls/hr IVPB Q12H [facility]; Protocol Stop: 06/21/18 11:01 Last Admin: 06/12/18 22:42 Dose: 100 mls/hr Dopamine HCl/Dextrose (Dopamine 400mg/250ml D5w) 400 mg in 250 mls @ 16.074 mls/hr IV .[id number] PRN; Protocol PRN Reason: TITRATE TO KEEP SBP>=100 MMHG NOREPINEPHRINE BIT/0.9 % NACL (Levophed 4 Mg/ 250 Ml Ns Premixed) 4 mg in 250 mls @ 15 mls/hr IV .[id number] PRN; Protocol PRN Reason: TITRATE PER MD ORDER Last Titration: 06/13/18 08:01 Dose: 7 mcg/min, 26.25 mls/hr Vasopressin 20 units/ Sodium (Chloride) 101 mls @ 9.09 mls/hr IV .Q11H7M [facility]; Protocol Last Admin: 06/12/18 22:34 Dose: 9.09 mls/hr Heparin Sodium/Sodium Chloride (Heparin 60814 Units/250ml 1/2 Normal Saline) 25,000 units in 250 mls @ 15.431 mls/hr IV .[id number] PRN; Protocol PRN Reason: ADJUST RATE PER PROTOCOL Last Titration: 06/13/18 01:00 Dose: 15 units/kg/hr, 12.859 mls/hr Daptomycin 510 mg/ Sodium (Chloride) 100 mls @ 200 mls/hr IV QOTHERDAY [facility] Stop: 06/17/18 16:01 Last Admin: 06/12/18 18:05 Dose: 200 mls/hr Dobutamine HCl/Dextrose (Dobutamine/Dextrose 5% 500mg/250ml) 500 mg in 250 mls @ 5.144 mls/hr IV .Q24H PRN; Protocol PRN Reason: TITRATE PER PROTOCOL Last Admin: 06/13/18 07:47 Dose: 2 mcg/kg/min, 5.144 mls/hr Insulin Human Regular (Humulin R Low) 0 units SC ACHS [facility]; Protocol Last Admin: 06/12/18 22:08 Dose: Not Given Levothyroxine Sodium (Synthroid) 25 mcg PO 0600 [facility] Last Admin: 06/13/18 06:38 Dose: Not Given Lorazepam (Ativan) 2 mg IVP ONCE PRN; Protocol PRN Reason: Agitation Last Admin: 06/12/18 19:56 Dose: 2 mg Metronidazole (Flagyl) 500 mg PO Q8 [facility]; Protocol Stop: 06/18/18 14:01 Last Admin: 06/12/18 22:36 Dose: Not Given Midodrine (Proamatine) 2.5 mg PO TID [facility] Last Admin: 06/12/18 19:58 Dose: Not Given Ondansetron HCl (Zofran Inj) 4 mg IVP Q4H PRN PRN Reason: Nausea/Vomiting Pantoprazole Sodium (Protonix Ec Tab) 40 mg PO 0600 [facility] Last Admin: 06/13/18 06:37 Dose: Not Given Sennosides (Senokot Tab) 17.2 mg PO HS [facility] Last Admin: 06/12/18 22:35 Dose: Not Given Sevelamer HCl (Renagel) 800 mg PO TID [facility] Last Admin: 06/12/18 19:58 Dose: Not Given Silver Sulfadiazine (Silvadene 1% 25 Gm) 1 gm TP DAILY [facility] Sodium Bicarbonate (Sodium Bicarbonate 8.4% (50 Meq) Syringe) 50 meq IVP ONCE PRN PRN Reason: Other Vitamin B Complex/Vit C/Folic Acid (Nephro-Jose Miguel) 1 tab PO DAILY [facility] Last Admin: 06/12/18 09:39 Dose: Not Given - Labs Labs: 06/13/18 05:40 06/13/18 05:40 PT 17.8 SECONDS (9.4-12.5) H 06/12/18 22:41 INR 1.60 06/12/18 22:41 APTT > 400.0 Seconds (26.9-38.3) H* 06/13/18 05:40 - Constitutional Appears: Chronically Ill - Head Exam Head Exam: NORMAL INSPECTION - Respiratory Exam Respiratory Exam: Decreased Breath Sounds - Cardiovascular Exam Cardiovascular Exam: +S1, +S2 - GI/Abdominal Exam GI & Abdominal Exam: Soft. absent: Tenderness Assessment and Plan - Assessment and Plan (Free Text) Plan: Assessment Hypotension, consider due to right sided heart failure, consider GI bleeding coagulase negative staph bacteremia, source not clear right breast cellulitis obesity with BMI 31 ESRD on HD hypothyroidism DM dyslipidemia CAD S/P CABG S/P foot surgery Plan continue Azactam, Flagyl, and Daptomycin day 4 ; blood cx showing CoNS from 06/12 - source is not clear, will get 2D echo, will repeat blood cx discussed with dr. Hall - patient may have right sided heart failure causing hypotension, patient being managed by ICU team will monitor clinically prognosis is guarded follow up further ICU work up for possible GI bleeding
--- NOTE | 2018-06-14 15:51 | PN ---
DATE: 06/14/2018 CARDIOLOGY FOLLOWUP SUBJECTIVE: The patient is no acute distress. PHYSICAL EXAMINATION: VITAL SIGNS: Blood pressure 112 systolic, heart rates in the 70s. NECK: Negative JVD. LUNGS: Decreased breath sounds. HEART: S1, S2. EXTREMITIES: Without change. LABORATORIES: Hemoglobin is 8.7. Chemistries, troponin is 0.15. IMPRESSION: 1. The patient is hemodynamically stable on ionotropic therapy as well as pressors. 2. Upper gastrointestinal bleed. 3. End-stage renal disease. 4. Markedly dilated right ventricle. 5. Hypotension. Given these findings, the hemoglobin is stable. I agree with the need to rule out pulmonary embolism. Chan Berman MD
--- NOTE | 2018-06-14 16:04 | CP.PCM.PN ---
Subjective - Date & Time of Evaluation Date of Evaluation: 06/22/18 Time of Evaluation: 08:00 - Subjective Subjective: Patient seen and examined at bedside, currently in ICU. ROS limited due to patient's condition. Objective - Vital Signs/Intake and Output Vital Signs (last 24 hours): Temp Pulse Resp BP Pulse Ox 98.6 F 78 14 112/28 L 96 06/14/18 06:00 06/14/18 06:00 06/14/18 06:00 06/14/18 06:00 06/12/18 20:01 Intake and Output: 06/14/18 06/14/18 06:59 18:59 Intake Total 300 290 Output Total 1000 Balance -700 290 - Medications Medications: Current Medications Acetaminophen (Tylenol 325mg Tab) 650 mg PO Q6 PRN PRN Reason: TEMP>=99.5F Last Admin: 06/11/18 12:02 Dose: 650 mg Acetaminophen (Tylenol 650 Mg Supp) 650 mg RC Q6H PRN PRN Reason: TEMP>=99.5F Acetaminophen (Tylenol 650 Mg Supp) 650 mg RC Q6H PRN PRN Reason: Headache Acetaminophen (Tylenol 325mg Tab) 650 mg PO Q6 PRN PRN Reason: Headache Last Admin: 06/12/18 00:58 Dose: 650 mg Atorvastatin Calcium (Lipitor) 80 mg PO HS [facility] Last Admin: 06/13/18 22:44 Dose: Not Given Cinacalcet (Sensipar) 30 mg PO DIN [facility] Last Admin: 06/13/18 18:40 Dose: Not Given Docusate Sodium (Colace) 100 mg PO TID [facility] Last Admin: 06/14/18 13:40 Dose: Not Given Heparin Sodium (Porcine) (Heparin) 5,000 units SC Q8 [facility]; Protocol Last Admin: 06/14/18 13:44 Dose: 5,000 units Hydrocortisone Sodium Succinate (Solu-Cortef) 50 mg IVP Q6H [facility] Last Admin: 06/14/18 11:55 Dose: 50 mg Aztreonam 500 mg/ Sodium (Chloride) 100 mls @ 100 mls/hr IVPB Q12H [facility]; Protocol Stop: 06/21/18 11:01 Last Admin: 06/14/18 11:55 Dose: 100 mls/hr Dopamine HCl/Dextrose (Dopamine 400mg/250ml D5w) 400 mg in 250 mls @ 16.074 mls /hr IV .[id number] PRN; Protocol PRN Reason: TITRATE TO KEEP SBP>=100 MMHG NOREPINEPHRINE BIT/0.9 % NACL (Levophed 4 Mg/ 250 Ml Ns Premixed) 4 mg in 250 mls @ 15 mls/hr IV .[id number] PRN; Protocol PRN Reason: TITRATE PER MD ORDER Last Admin: 06/14/18 08:17 Dose: 8 mcg/min, 30 mls/hr Vasopressin 20 units/ Sodium (Chloride) 101 mls @ 9.09 mls/hr IV .[id number] RAISSA; Protocol Last Admin: 06/13/18 23:03 Dose: 9.09 mls/hr Daptomycin 510 mg/ Sodium (Chloride) 100 mls @ 200 mls/hr IV QOTHERDAY [facility] Stop: 06/17/18 16:01 Last Admin: 06/14/18 11:55 Dose: 200 mls/hr Dobutamine HCl/Dextrose (Dobutamine/Dextrose 5% 500mg/250ml) 500 mg in 250 mls @ 5.144 mls/hr IV .Q24H PRN; Protocol PRN Reason: TITRATE PER PROTOCOL Last Titration: 06/14/18 08:18 Dose: 4 mcg/kg/min, 10.287 mls/hr Pantoprazole Sodium (Protonix 40mg Ivpb) 40 mg in 100 mls @ 20 mls/hr IVPB .Q5H RAISSA Last Admin: 06/14/18 05:37 Dose: 20 mls/hr Dexmedetomidine HCl (Precedex 400mcg/100ml) 400 mcg in 100 mls @ 4.286 mls/hr IV .[id number] PRN; Protocol PRN Reason: Agitation Last Admin: 06/14/18 12:01 Dose: 2 mcg/kg/hr, 42.865 mls/hr Metronidazole (Flagyl) 500 mg in 100 mls @ 100 mls/hr IVPB Q8 [facility]IS[facility]; Protocol Stop: 06/19/18 14:00 Last Admin: 06/14/18 13:44 Dose: 100 mls/hr Insulin Human Regular (Humulin R Low) 0 units SC ACHS RAISSA; Protocol Last Admin: 06/14/18 12:00 Dose: 2 unit Levothyroxine Sodium (Synthroid) 12.5 mcg IVP DAILY [facility] Last Admin: 06/14/18 13:50 Dose: 12.5 mcg Lorazepam (Ativan) 2 mg IVP ONCE PRN; Protocol PRN Reason: Agitation Last Admin: 06/12/18 19:56 Dose: 2 mg Midodrine (Proamatine) 2.5 mg PO TID [facility] Last Admin: 06/14/18 09:00 Dose: Not Given Mupirocin (Bactroban Ointment) 0 gm TOP BID [facility] Ondansetron HCl (Zofran Inj) 4 mg IVP Q4H PRN PRN Reason: Nausea/Vomiting Pantoprazole Sodium (Protonix Ec Tab) 40 mg PO 0600 [facility] Last Admin: 06/14/18 05:38 Dose: Not Given Sennosides (Senokot Tab) 17.2 mg PO HS [facility] Last Admin: 06/13/18 22:44 Dose: Not Given Sevelamer HCl (Renagel) 800 mg PO TID [facility] Last Admin: 06/14/18 13:38 Dose: Not Given Silver Sulfadiazine (Silvadene 1% 25 Gm) 1 gm TP DAILY [facility] Sodium Bicarbonate (Sodium Bicarbonate 8.4% (50 Meq) Syringe) 50 meq IVP ONCE PRN PRN Reason: Other Vitamin B Complex/Vit C/Folic Acid (Nephro-Jose Miguel) 1 tab PO DAILY [facility] Last Admin: 06/14/18 09:00 Dose: Not Given - Labs Labs: 06/14/18 08:00 06/14/18 04:45 PT 18.8 SECONDS (9.4-12.5) H 06/13/18 13:00 INR 1.66 06/13/18 13:00 APTT 137.8 Seconds (26.9-38.3) H* 06/13/18 13:00
--- NOTE | 2018-06-14 16:27 | PN ---
DATE: 06/14/2018 SUBJECTIVE: The patient is seen lying in the bed in ICU, bed 5. The patient does not have an NG tube now. The patient has bleeding noted. The patient is lying in the bed, responsive to verbal and loud verbal and painful stimuli. The patient is screaming. The patient is on 1:1 at present. The patient is seen lying in the bed, does not appear to be in any distress. Overnight nurse's notes were reviewed. The patient underwent hemodialysis yesterday, which the patient tolerated. OG tube was removed. The patient still has the right IJ triple-lumen catheter. PHYSICAL EXAMINATION: VITAL SIGNS: T-max 98.6. Telemetry shows sinus rhythm; heart rate 74, 78, 86, 84; blood pressure 112/28, 112/58, 123/85. In the last 24 hours, respirations 14, O2 sat is 96-98%. HEENT AND NECK: Head: Normocephalic, atraumatic. HEENT examination shows pinkish pale conjunctivae. Anicteric sclerae. No oropharyngeal lesion. No neck rigidity. Positive right internal jugular triple-lumen noted. CARDIOVASCULAR: S1, S2. Positive median sternotomy surgical scar. Positive systolic murmur left sternal border, right second intercostal space, left second intercostal space. ABDOMEN: Soft. Positive bowel sounds. No palpable hepatosplenomegaly. GENITALIA: Female. RECTAL: Deferred. EXTREMITIES: Show no pitting edema of the lower extremity. Positive left upper extremity AV fistula. MUSCULOSKELETAL: Shows a body mass index of 34. DIAGNOSTICS: 06/14/2018, WBC 12.6, hemoglobin and hematocrit 8.6 and 27.5, platelets 86,000. Granulocytes 85. VBG today shows a lactate of 6.9, pH of 7.35, pCO2 of 35, pO2 65. Sodium 138, potassium is 5.6, non-hemolyzed chloride 99, CO2 of 19, anion gap 27, BUN 38, creatinine 7.1, GFR 7, glucose 161, calcium 8.5, phosphorus 5.9, magnesium 2.5, total bili 2.0, direct bili 1.7, AST 42. Troponin peaked up to 0.15 again today. Serum immunofixation none detected. Hepatitis B surface antibody is positive, hepatitis B core IgM is negative, hepatitis B e-antigen is nonreactive. HIV is nonreactive. Blood cultures, gram-positive cocci in clusters, coagulase-negative Staphylococcus aureus. The patient received 1 unit of PRBC. The patient's chest x-ray, venous Doppler of the lower extremity reviewed. EKG from today reviewed. IMPRESSION AND PLAN 1. Gram-positive cocci, coagulase-negative Staphylococcus aureus bacteremia and sepsis. 2. Cardiogenic versus septic shock. 3. Acute myocardial infarction with elevated troponin. 4. Diabetic chronic kidney disease. 5. End-stage renal disease, hemodialysis dependent. 6. Refractory slow resolving inotrope and pressor-dependent hypotension. 7. End-stage renal disease, hemodialysis dependent. 8. Anemia. 9. Status post packed red blood cell transfusion. 10. Secondary hyperparathyroidism with hyperphosphatemia. 11. Coronary artery disease, status post coronary artery bypass graft. 12. Obesity. 13. Thrombocytopenia. 14. Right breast cellulitis versus . 15. Lactic acidosis. 16. Questionable upper gastrointestinal bleeding . 17. Hypotension. 18. Leukocytosis with granulocytosis. 19. Elevated erythrocyte sedimentation rate of 38. 20. Elevated reticulocyte count. 21. Thrombocytopenia. 22. Normocytic anemia. 23. Status post packed red blood cell transfusion. 24. Iatrogenic coagulopathy. 25. Hypoxemia. 26. Refractory lactic acidosis and increased anion gap metabolic acidosis. 27. Non-hemolyzed hyperkalemia. 28. Uncontrolled diabetes mellitus with fructosamine of 477. 29. Hyperphosphatemia. 30. Hyperbilirubinemia. 31. Transaminitis. 32. Hyperbilirubinemia. 33. Hyperphosphatemia. 34. Hypovitaminosis D. 35. Hypothyroidism. 36. Coagulase-negative Staphylococcus aureus bacteremia and sepsis and septic versus cardiogenic shock. 37. Status post packed red blood cell transfusion. 38. Status post right internal jugular triple-lumen catheter placement. 39. Cerebral hypoperfusion with toxic metabolic encephalopathy. 40. Non-hemolyzed hyperkalemia. 41. Questionable upper gastrointestinal bleeding. 42. Permanent pacemaker implant. 43. Atrial fibrillation with right bundle-branch block, left axis deviation. 44. Infero-anterolateral coronary ischemia versus myocardial infarction. 45. Atherosclerotic aortic arch calcification. 46. Cardiomegaly. 47. Thrombocytopenia. 48. Permanent pacemaker implant. 49. Right bundle-branch block, left anterior hemiblock and bifascicular block. 50. Infero-anterolateral coronary ischemic changes. 51. Left ventricle ejection fraction of 63%. 52. Concentric left ventricular hypertrophy. 53. Grade 2 pseudonormal filling dynamics. 54. Severely dilated right ventricle with severely reduced right ventricular systolic function. 55. Mildly dilated left and right atrium. 56. Trace aortic regurgitation with aortic valve thickening. 57. Mitral annular calcification with thickened mitral valve and moderate to severe mitral regurgitation. 58. Severe tricuspid regurgitation. 59. Trivial pulmonic valvular regurgitation with mildly thickened pulmonic valve. 60. Severe deconditioning and gait dysfunction. 61. End-stage renal disease, hemodialysis dependent. 62. Right-sided diastolic congestive heart failure with pulmonary hypertension. 63. Coagulopathy. 64. Chronic periventricular white matter ischemic changes of the brain, of the subcortical white matter and chronic bilateral basal nuclear lacunar infarct with generalized volume loss. 65. Multiple calvarial lucencies, questionable multiple myeloma with sclerotic lesion of the outer table of the left parietal calvarium. 66. Status post bilateral cataract surgery. 67. Ectatic tortuous thoracic aorta. 68. Cardiomegaly. 69. Lytic bony lesions. 70. Questionable hepatic cirrhosis. 71. Cholecystectomy. 72. Colonic diverticulosis. 73. Retroperitoneal and mesenteric mild lymphadenopathy. 74. Right breast, right chest wall and right anterior abdominal wall cellulitis with subcutaneous thickening and subcutaneous edema. 75. Right foot post-traumatic post infectious changes of the right fifth metatarsal bone with old healed fracture of the first and second metatarsal bone and degenerative joint disease of the first metatarsophalangeal joint with degenerative joint disease of the right foot. 76. Diffuse osteopenia versus osteoporosis of the right foot with pes planus of the right foot. 77. Deconditioning. 78. Gait dysfunction. 79. Diabetic foot disease. 80. Questionable upper gastrointestinal bleeding. 81. Refractory inotrope pressors-dependent hypotension. 82. Hypothyroidism. 83. Status post rapid response. 84. Non-hemolyzed hyperkalemia. PLAN: At this time, the patient is to be continued in ICU. Repeat serial labs have been ordered. Repeat CBC manual platelet count ordered. Repeat blood cultures results are pending. Current consultation Cardiology, Gastroenterology, Hematology/Oncology, Infectious Disease, Nephrology, Neurology, Podiatry and critical care. CURRENT MEDICATIONS: The patient is on Azactam 500 mg IV every 12 hours, Colace 100 three times a day, Cubicin 510 mg every other day, Precedex drip, dobutamine drip. Flagyl 500 IV every 8 hours, heparin 5000 subcutaneously every 8 hours which was restarted today, Humulin low-dose sliding scale coverage. The patient has been ordered Kayexalate retention enema 50 g, Lipitor 80 mg daily, Nephro-Jose Miguel 1 tablet daily, Levophed drip, midodrine 2.5 mg three times a day, Protonix 40 mg daily, Sensipar 30 mg daily, Silvadene cream to the affected area, Solu-Cortef 50 mg IV every 6 hours, Synthroid 25 mcg daily, Tylenol 650 mg p.o. suppository p.r.n. for fever. The patient is on vasopressin drip, Zofran 4 mg IV every 4 p.r.n. Right breast ultrasound has been ordered. CT head had been ordered. Incentive spirometry, repeat EKG, EEG has been ordered. The patient is on n.p.o. diet. The patient at present has been ordered a repeat ammonia level and a repeat CT head. The patient's p.o. Synthroid will be changed to IV Synthroid starting today, because the patient is n.p.o. at present. At present, the patient's overall prognosis is extremely guarded to poor, condition critical. The patient's next of kin aware of the patient's condition and overall guarded to poor prognosis and critical condition. Time spent is more than 35 minutes. Dictated and electronically signed, not read. Jimy Simeon MD
[2018-06-14 17:03] LABS: ALBUMIN (PEP) 3.7 g/dL (3.8-4.8); ALPHA-1-GLOBULIN (PEP) 0.4 g/dL (0.2-0.3)
--- NOTE | 2018-06-14 17:57 | CON ---
DATE OF CONSULTATION: 06/14/2018 GASTROENTEROLOGY CONSULTATION REQUESTING PHYSICIAN: Dr. Simeon. REASON FOR CONSULTATION: I have been asked to see this 67-year-old female with history of end-stage renal disease on hemodialysis, coronary artery disease, peripheral vascular disease and chronic low back pain treated with opiates, who on the morning of admission to the hospital developed altered mental status, lethargy and hypotension with blood pressure dropping to the 70s. Rapid response was called in the hospital, and the patient was transferred to the ICU. The patient apparently had bright red blood from an NG tube aspirate, which turned to coffee-grounds. When an NG tube was inserted she has not had any overt GI bleeding, such as melena. She has not had any hematemesis or rectal bleeding. She currently is confused and delirious and unable to give any history. History is obtained from the chart as well as my discussion with Dr. Hall. PAST MEDICAL HISTORY: As above. Again, she has a history of end-stage renal disease on dialysis, coronary artery disease status post coronary artery stent placement, permanent pacemaker placement, CHF. PAST SURGICAL HISTORY: Notable for coronary artery bypass surgery and placement of an AV fistula. SOCIAL HISTORY: There is no history of cigarette smoking or alcohol use. FAMILY HISTORY: Noncontributory. REVIEW OF SYSTEMS: Fourteen-point review of systems is notable for altered mental status and weakness. MEDICATIONS: Medications at home include Lyrica, metoprolol, vitamin D, Crestor, hydroxyzine, Sensipar, amitriptyline, baclofen, and Valium. PHYSICAL EXAMINATION: GENERAL: Middle-aged female in bed, confused, trying to climb out of bed. VITAL SIGNS: Reveal a temperature of 98.6, blood pressure 112/28, heart rate of 78. HEENT: Revealed sclerae to be muddy, conjunctivae pale. NECK: Supple. CHEST: Revealed distant breath sounds. HEART: Exam reveals a regular rate and rhythm. ABDOMEN: Soft. There are multiple 6 to 10 mm scars throughout her abdomen. EXTREMITIES: Show trace pedal edema. LABORATORY DATA: Revealed a sodium of 138, potassium 5.6, bicarb of 19, BUN 38, creatinine 7.1. AST is 42, ALT 21, alkaline phosphatase of 107, troponin of 0.15. Chemistries reveal a hemoglobin of 9.4, white blood cell count 15.9, platelet count of 115,000. Coags reveal a PT of 18.8, INR of 1.66, PTT of 137.8. CT scan of the abdomen and pelvis showed some lytic lesions in the bones. There is no evidence of an intra-abdominal mass, fluid collection, or mural thickening. IMPRESSION: A 67-year-old female with lethargy, altered mental status, history of end-stage renal disease, history of coronary artery disease with one episode of bright red blood followed by coffee-grounds from an NG tube. Her blood count has increased appropriately to 9.4 from 8.7 after 1 unit of packed red blood cells. There is no evidence of overt gastrointestinal bleeding at this time. Etiology of the altered mental status is unclear. She does have some lytic lesions in her bones on CT scan, one must rule out multiple myeloma or other myeloproliferative disorder. RECOMMENDATIONS: 1. Continue PPI for stress ulcer prophylaxis. 2. Continue treatment as per Renal, Cardiology, and Infectious Disease specialists. Her prognosis is guarded at this time. Angelito Terry MD
[2018-06-14 18:52] LABS: ARTERIAL BLOOD GAS HCO3 22.2 mmol/L (21-28); ARTERIAL BLOOD GAS O2 SAT 97.3 % (95-98); ARTERIAL BLOOD GAS PCO2 32 mm/Hg (35-45); ARTERIAL BLOOD GAS PH 7.45 (7.35-7.45); ARTERIAL BLOOD GAS TCO2 23.2 mmol.L (22-28)
[2018-06-15 00:13] LABS: VENOUS BLOOD GAS BASE EXCESS -0.3 mmol/L (0.0-2.0); VENOUS BLOOD GAS PO2 54 mm/Hg (30-55); VENOUS BLOOD PH 7.41 (7.32-7.43)
[2018-06-15] MEDS: Pantoprazole 40mg/100mL NS 40 MG/100 ML BAG IVPB SCH (03:29)
[2018-06-15 03:37] LABS: VENOUS BLOOD GAS BASE EXCESS -1.8 mmol/L (0.0-2.0); VENOUS BLOOD GAS PO2 51 mm/Hg (30-55); VENOUS BLOOD PH 7.38 (7.32-7.43)
[2018-06-15] MEDS: NOREPINEPHRINE BIT/0.9 % NACL 4 MG/250 ML BAG IV PRN (05:06)
[2018-06-15] MEDS: metroNIDAZOLE IV 500 mg/100 ml 500 MG/100 ML BAG IVPB SCH ×3 (06:22→21:57)
[2018-06-15 07:41] LABS: HEMOGLOBIN 9.1 g/dL (12.0-16.0); LYMPH # 0.5 (1.2-3.4); LYMPH % 4.5 % (22.0-35.0); MEAN CELL VOLUME 93.2 fl (80.0-105.0); MEAN CORPUSCULAR HEMOGLOBIN 29.4 pg (25.0-35.0); MEAN CORPUSCULAR HGB CONC 31.6 g/dl (31.0-37.0); MEAN PLATELET VOLUME 9.5 fl (7.0-11.0); MONO # 1.1 (0.1-0.6); MONO % 10.4 % (1.0-6.0); RBC 3.09 10^6/uL (3.5-6.1); RED CELL DISTRIBUTION WIDTH 17.9 % (11.5-14.5); WHITE BLOOD COUNT 10.9 10^3/uL (4.5-11.0)
[2018-06-15 08:05] LABS: ALB/GLOB RATIO 1.1 (1.1-1.8); ALBUMIN 3.8 g/dL (3.0-4.8); BILIRUBIN,DIRECT 1.5 mg/dL (0.0-0.4); CALCIUM 8.1 mg/dL (8.4-10.5); TROPONIN I 0.94 ng/mL
--- NOTE | 2018-06-15 08:29 | CP.CCUPN ---
<Laurie Bain - Last Filed: 06/15/18 15:51> CCU Subjective - Physician Review Subjective (Free Text): Laurie Bain, PGY 1 Critical Care Progress Note Patient seen and examined at bedside this morning. No acute events reported overnight but continues to intermittently wake up agitated and shout incoherent phrases. Currently on levophed at 6, dobutamine at 4 and vassopressin at 0.03 as well as precedex. S/p HD yesterday, 1L removed. V/Q scan pending today. Patient continues to be NPO. She is lethargic upon examination and 12 point ROS limited due to patient status. CCU Objective - Vital Signs / Intake & Output Intake and Output (Last 8hrs): Intake & Output 06/14/18 06/15/18 06/15/18 22:59 06:59 14:59 Intake Total 910 150 Output Total 0 Balance 910 150 Intake: IV 910 150 Right External Jugular 500 Output: Urine 0 Urine, Voided 0 Other: # Bowel Movements 1 - Physical Exam Head: Positive for: Atraumatic, Normocephalic, Other (moderate edema to face) Pupils: Positive for: PERRL Extroacular Muscles: Positive for: EOMI Conjunctiva: Positive for: Normal Mouth: Positive for: Moist Mucous Membranes Neck: Positive for: Normal Range of Motion Respiratory/Chest: Positive for: Clear to Auscultation, Good Air Exchange. Negative for: Respiratory Distress, Accessory Muscle Use Cardiovascular: Positive for: Regular Rate and Rhythm, Normal S1, S2. Negative for: Murmurs Abdomen: Negative for: Tenderness, Distention, Peritoneal Signs Breast/Axillary: Positive for: Erythema (+erythema to the R breast proximal to the nipple with induration without palpable mass or abscess). Negative for: Axillary Lymphad, Discoloration, Fluctuance, Masses, Nipple Discharge, Swelling, Symmetrical, Tender to Palpation Back: Positive for: Normal Inspection Upper Extremity: Positive for: Normal Inspection. Negative for: Cyanosis, Edema Lower Extremity: Positive for: Edema (non-pitting) Neurological: Positive for: GCS=15, Motor Func Grossly Intact, Other (moving extremities spontaneously past midline) Skin: Positive for: Warm, Dry, Normal Color. Negative for: Rashes Psychiatric: Positive for: Alert, Other (lethargic, combative ) - Medications Active Medications: Active Medications Generic Name Dose Route Start Last Admin Trade Name Freq PRN Reason Stop Dose Admin Acetaminophen 650 mg 06/11/18 02:36 06/11/18 12:02 Tylenol 325mg Tab PO 650 mg Q6 PRN Administration TEMP>=99.5F Acetaminophen 650 mg 06/11/18 02:36 Tylenol 650 Mg Supp RC Q6H PRN TEMP>=99.5F Acetaminophen 650 mg 06/11/18 02:41 Tylenol 650 Mg Supp RC Q6H PRN Headache Acetaminophen 650 mg 06/11/18 02:42 06/12/18 00:58 Tylenol 325mg Tab PO 650 mg Q6 PRN Administration Headache Atorvastatin Calcium 80 mg 06/11/18 22:00 06/14/18 22:07 Lipitor PO Not Given HS RAISSA Cinacalcet 30 mg 06/11/18 02:45 06/14/18 18:03 Sensipar PO Not Given DIN RAISSA Docusate Sodium 100 mg 06/11/18 10:00 06/14/18 13:40 Colace PO Not Given TID RAISSA Heparin Sodium (Porcine) 5,000 units 06/14/18 08:15 06/15/18 06:23 Heparin SC 5,000 units Q8 RAISSA Administration Protocol Hydrocortisone Sodium Succinate 50 mg 06/12/18 17:30 06/15/18 06:23 Solu-Cortef IVP 50 mg Q6H RAISSA Administration Aztreonam 500 mg/ Sodium 100 mls @ 100 mls/hr 06/11/18 11:00 06/14/18 22:13 Chloride IVPB 06/21/18 11:01 100 mls/hr Q12H RAISSA Administration Protocol Dopamine HCl/Dextrose 400 mg in 250 mls @ 16.074 mls/hr 06/12/18 11:19 Dopamine 400mg/250ml D5w IV .[id number] PRN TITRATE TO KEEP SBP>=100 MMHG Protocol 5 MCG/KG/MIN NOREPINEPHRINE BIT/0.9 % NACL 4 mg in 250 mls @ 15 mls/hr 06/12/18 11:26 06/15/18 05:06 Levophed 4 Mg/ 250 Ml Ns Premixed IV 4 mcg/min .[id number] PRN 15 mls/hr TITRATE PER MD ORDER Administration Protocol 4 MCG/MIN Vasopressin 20 units/ Sodium 101 mls @ 9.09 mls/hr 06/12/18 11:30 06/14/18 21:49 Chloride IV 9.09 mls/hr .[id number] RAISSA Administration Protocol 0.03 U/MIN Daptomycin 510 mg/ Sodium 100 mls @ 200 mls/hr 06/12/18 16:00 06/14/18 11:55 Chloride IV 06/17/18 16:01 200 mls/hr QOTHERDAY RAISSA Administration Dobutamine HCl/Dextrose 500 mg in 250 mls @ 5.144 mls/hr 06/12/18 16:04 06/14/18 08:18 Dobutamine/Dextrose 5% 500mg/250ml IV 4 mcg/kg/min .Q24H PRN 10.287 mls/hr TITRATE PER PROTOCOL Titration Protocol 2 MCG/KG/MIN Dexmedetomidine HCl 400 mcg in 100 mls @ 4.286 mls/hr 06/13/18 17:24 06/14/18 21:07 Precedex 400mcg/100ml IV 0.2 mcg/kg/hr .[id number] PRN 4.286 mls/hr Agitation Titration Protocol 0.2 MCG/KG/HR Metronidazole 500 mg in 100 mls @ 100 mls/hr 06/14/18 14:00 06/15/18 06:22 Flagyl IVPB 06/19/18 14:00 100 mls/hr Q8 RAISSA Administration Protocol Insulin Human Regular 0 units 06/11/18 07:30 06/14/18 21:39 Humulin R Low SC Not Given ACHS [facility] Protocol Levothyroxine Sodium 12.5 mcg 06/14/18 12:30 06/14/18 13:50 Synthroid IVP 12.5 mcg DAILY RAISSA Administration Lorazepam 2 mg 06/12/18 14:35 06/12/18 19:56 Ativan IVP 2 mg ONCE PRN Administration Agitation Protocol Midodrine 2.5 mg 06/11/18 10:00 06/14/18 18:02 Proamatine PO Not Given TID [facility] Mupirocin 0 gm 06/13/18 18:00 Bactroban Ointment TOP BID [facility] Ondansetron HCl 4 mg 06/11/18 02:36 Zofran Inj IVP Q4H PRN Nausea/Vomiting Pantoprazole Sodium 40 mg 06/11/18 06:00 06/14/18 05:38 Protonix Ec Tab PO Not Given 0600 [facility] Pantoprazole Sodium 40 mg 06/15/18 10:00 Protonix Inj IVP Q12 [facility] Sennosides 17.2 mg 06/11/18 22:00 06/14/18 22:08 Senokot Tab PO Not Given HS RAISSA Sevelamer HCl 800 mg 06/11/18 10:00 06/14/18 19:47 Renagel PO Not Given TID [facility] Silver Sulfadiazine 1 gm 06/11/18 10:00 Silvadene 1% 25 Gm TP DAILY [facility] Sodium Bicarbonate 50 meq 06/12/18 16:53 Sodium Bicarbonate 8.4% (50 Meq) Syringe IVP ONCE PRN Other Vitamin B Complex/Vit C/Folic Acid 1 tab 06/11/18 10:00 06/14/18 09:00 Nephro-Jose Miguel PO Not Given DAILY RAISSA - Patient Studies Lab Studies: Microbiology Studies 06/10/18 23:15 Blood Culture - Preliminary Blood NO GROWTH AFTER 4 DAYS 06/10/18 22:45 Blood Culture - Preliminary Blood NO GROWTH AFTER 4 DAYS 06/13/18 15:48 Blood Culture - Preliminary Blood NO GROWTH AFTER 24 HOURS 06/13/18 15:48 Blood Culture - Preliminary Blood NO GROWTH AFTER 24 HOURS 06/13/18 13:00 Gram Stain - Final Foot - Left Wound Culture - Preliminary Gram Positive Cocci 06/12/18 08:50 Blood Culture - Preliminary Blood-Venous Coagulase Neg Staphylococcus Gram Stain - Final 06/12/18 08:30 S.aureus & Coag-Neg Staph PNA FISH - Final Blood-Venous TEST NOT PERFORMED Blood Culture - Preliminary Coagulase Neg Staphylococcus Gram Stain - Final Lab Studies 06/15/18 06/15/18 06/15/18 Range/Units 07:25 07:25 03:10 WBC 10.9 (4.5-11.0) 10^3/uL RBC 3.09 L (3.5-6.1) 10^6/uL Hgb 9.1 L (12.0-16.0) g/dL Hct 28.8 L (36.0-48.0) % MCV 93.2 (80.0-105.0) fl MCH 29.4 (25.0-35.0) pg MCHC 31.6 (31.0-37.0) g/dl RDW 17.9 H (11.5-14.5) % Plt Count 71 L (120.0-450.0) 10^3/uL Manual Plt Count (120-450) K/mm3 MPV 9.5 (7.0-11.0) fl Neut % (Auto) 85.1 H (50.0-68.0) % Lymph % (Auto) 4.5 L (22.0-35.0) % [place] % (Auto) 10.4 H (1.0-6.0) % Eos % (Auto) 0.0 L (1.5-5.0) % Baso % (Auto) 0.0 (0.0-3.0) % Lymph # (Auto) 0.5 L (1.2-3.4) [place] # (Auto) 1.1 H (0.1-0.6) Eos # (Auto) 0.0 (0.0-0.7) Baso # (Auto) 0.00 (0.0-2.0) K/mm3 Absolute Neuts (auto) 9.31 H (1.4-6.5) pCO2 (35-45) mm/Hg pO2 51 (30-55) mm/Hg HCO3 (21-28) mmol/L ABG pH (7.35-7.45) ABG Total CO2 (22-28) mmol.L ABG O2 Saturation (95-98) % ABG Base Excess (-2.0-3.0) mmol/L ABG Potassium (3.6-5.2) mmol/L VBG pH 7.38 (7.32-7.43) VBG pCO2 39.0 L (40-60) VBG HCO3 23.1 (21-28) mmol/l VBG Total CO2 24.3 (22-28) mmol.L VBG O2 Sat (Calc) 87.8 H (40-65) % VBG Base Excess -1.8 L (0.0-2.0) mmol/L VBG Potassium 4.6 (3.6-5.2) mmol/L Sodium 139 137.0 (132-148) mmol/L Chloride 101 100.0 (98-107) mmol/L Glucose 198 H (65-105) mg/dl Lactate 3.5 H (0.7-2.1) mmol/L FiO2 21.0 % Crit Value Called To Vicenta matias Crit Value Called By Jordan Blood Gas Notified Time 330 Potassium 4.4 (3.6-5.0) mmol/L Carbon Dioxide 22 (21-33) mmol/L Anion Gap 21 H (10-20) BUN 37 H (7-21) mg/dL Creatinine 5.2 H (0.7-1.2) mg/dl Est GFR ( Amer) 10 Est GFR (Non-Af Amer) 8 POC Glucose (mg/dL) (65-110) mg/dL Random Glucose 206 H (70-110) mg/dL Calcium 8.1 L (8.4-10.5) mg/dL Phosphorus 4.6 H (2.5-4.5) mg/dL Magnesium 2.4 H (1.7-2.2) mg/dL Total Bilirubin 1.6 H (0.2-1.3) mg/dL Direct Bilirubin 1.5 H (0.0-0.4) mg/dL AST 52 H D (14-36) U/L ALT 33 (7-56) U/L Alkaline Phosphatase 103 (38-126) U/L Ammonia (9-33) umol/L Troponin I 0.94 H* D ng/mL Total Protein 7.1 (5.8-8.3) g/dL Albumin 3.8 (3.0-4.8) g/dL Albumin (PEP) (3.8-4.8) g/dL Globulin 3.3 gm/dL Albumin/Globulin Ratio 1.1 (1.1-1.8) Prjsc-8-Wrtnxxahf (0.2-0.3) g/dL Extel-4-Kkodrwess (0.5-0.9) g/dL Ggoq-0-Eocgmkxa (0.4-0.6) g/dL Vuwn-6-Ssgdvlio (0.2-0.5) g/dL Gamma Globulins (0.8-1.7) g/dL Abnorm Protein Band 1 Abnorm Protein Band 2 Abnorm Protein Band 3 Arterial Blood Potassium (3.6-5.2) mmol/L Venous Blood Potassium 4.6 (3.6-5.2) mmol/L TALON & SPEP Interp Serum Immunofixation (Not Detected) Crossmatch 06/14/18 06/14/18 06/14/18 Range/Units 23:30 21:34 18:50 WBC (4.5-11.0) 10^3/uL RBC (3.5-6.1) 10^6/uL Hgb (12.0-16.0) g/dL Hct (36.0-48.0) % MCV (80.0-105.0) fl MCH (25.0-35.0) pg MCHC (31.0-37.0) g/dl RDW (11.5-14.5) % Plt Count (120.0-450.0) 10^3/uL Manual Plt Count (120-450) K/mm3 MPV (7.0-11.0) fl Neut % (Auto) (50.0-68.0) % Lymph % (Auto) (22.0-35.0) % [place] % (Auto) (1.0-6.0) % Eos % (Auto) (1.5-5.0) % Baso % (Auto) (0.0-3.0) % Lymph # (Auto) (1.2-3.4) [place] # (Auto) (0.1-0.6) Eos # (Auto) (0.0-0.7) Baso # (Auto) (0.0-2.0) K/mm3 Absolute Neuts (auto) (1.4-6.5) pCO2 32 L (35-45) mm/Hg pO2 54 75.0 L (30-55) mm/Hg HCO3 22.2 (21-28) mmol/L ABG pH 7.45 (7.35-7.45) ABG Total CO2 23.2 (22-28) mmol.L ABG O2 Saturation 97.3 (95-98) % ABG Base Excess -1.0 (-2.0-3.0) mmol/L ABG Potassium 3.3 L (3.6-5.2) mmol/L VBG pH 7.41 (7.32-7.43) VBG pCO2 38.0 L (40-60) VBG HCO3 24.1 (21-28) mmol/l VBG Total CO2 25.3 (22-28) mmol.L VBG O2 Sat (Calc) 91.2 H (40-65) % VBG Base Excess -0.3 L (0.0-2.0) mmol/L VBG Potassium 4.2 (3.6-5.2) mmol/L Sodium 137.0 142.0 (132-148) mmol/L Chloride 100.0 107.0 (98-107) mmol/L Glucose 194 H 144 H (65-105) mg/dl Lactate 2.7 H 2.1 (0.7-2.1) mmol/L FiO2 21.0 21.0 % Crit Value Called To Heather quintanilla rn icu Crit Value Called By Meredith Blood Gas Notified Time 13 Potassium (3.6-5.0) mmol/L Carbon Dioxide (21-33) mmol/L Anion Gap (10-20) BUN (7-21) mg/dL Creatinine (0.7-1.2) mg/dl Est GFR ( Amer) Est GFR (Non-Af Amer) POC Glucose (mg/dL) 188 H (65-110) mg/dL Random Glucose (70-110) mg/dL Calcium (8.4-10.5) mg/dL Phosphorus (2.5-4.5) mg/dL Magnesium (1.7-2.2) mg/dL Total Bilirubin (0.2-1.3) mg/dL Direct Bilirubin (0.0-0.4) mg/dL AST (14-36) U/L ALT (7-56) U/L Alkaline Phosphatase (38-126) U/L Ammonia (9-33) umol/L Troponin I ng/mL Total Protein (5.8-8.3) g/dL Albumin (3.0-4.8) g/dL Albumin (PEP) (3.8-4.8) g/dL Globulin gm/dL Albumin/Globulin Ratio (1.1-1.8) Tdxcn-5-Nwravgscs (0.2-0.3) g/dL Gsmie-2-Qgapgszin (0.5-0.9) g/dL Qyue-9-Unsocoga (0.4-0.6) g/dL Qxly-8-Coxsdmls (0.2-0.5) g/dL Gamma Globulins (0.8-1.7) g/dL Abnorm Protein Band 1 Abnorm Protein Band 2 Abnorm Protein Band 3 Arterial Blood Potassium 3.3 L (3.6-5.2) mmol/L Venous Blood Potassium 4.2 (3.6-5.2) mmol/L TALON & SPEP Interp Serum Immunofixation (Not Detected) Crossmatch 06/14/18 06/14/18 06/14/18 Range/Units 16:38 13:30 13:30 WBC (4.5-11.0) 10^3/uL RBC (3.5-6.1) 10^6/uL Hgb (12.0-16.0) g/dL Hct (36.0-48.0) % MCV (80.0-105.0) fl MCH (25.0-35.0) pg MCHC (31.0-37.0) g/dl RDW (11.5-14.5) % Plt Count (120.0-450.0) 10^3/uL Manual Plt Count 102 L (120-450) K/mm3 MPV (7.0-11.0) fl Neut % (Auto) (50.0-68.0) % Lymph % (Auto) (22.0-35.0) % [place] % (Auto) (1.0-6.0) % Eos % (Auto) (1.5-5.0) % Baso % (Auto) (0.0-3.0) % Lymph # (Auto) (1.2-3.4) [place] # (Auto) (0.1-0.6) Eos # (Auto) (0.0-0.7) Baso # (Auto) (0.0-2.0) K/mm3 Absolute Neuts (auto) (1.4-6.5) pCO2 (35-45) mm/Hg pO2 (30-55) mm/Hg HCO3 (21-28) mmol/L ABG pH (7.35-7.45) ABG Total CO2 (22-28) mmol.L ABG O2 Saturation (95-98) % ABG Base Excess (-2.0-3.0) mmol/L ABG Potassium (3.6-5.2) mmol/L VBG pH (7.32-7.43) VBG pCO2 (40-60) VBG HCO3 (21-28) mmol/l VBG Total CO2 (22-28) mmol.L VBG O2 Sat (Calc) (40-65) % VBG Base Excess (0.0-2.0) mmol/L VBG Potassium (3.6-5.2) mmol/L Sodium (132-148) mmol/L Chloride (98-107) mmol/L Glucose (65-105) mg/dl Lactate (0.7-2.1) mmol/L FiO2 % Crit Value Called To Crit Value Called By Blood Gas Notified Time Potassium (3.6-5.0) mmol/L Carbon Dioxide (21-33) mmol/L Anion Gap (10-20) BUN (7-21) mg/dL Creatinine (0.7-1.2) mg/dl Est GFR ( Amer) Est GFR (Non-Af Amer) POC Glucose (mg/dL) 219 H (65-110) mg/dL Random Glucose (70-110) mg/dL Calcium (8.4-10.5) mg/dL Phosphorus (2.5-4.5) mg/dL Magnesium (1.7-2.2) mg/dL Total Bilirubin (0.2-1.3) mg/dL Direct Bilirubin (0.0-0.4) mg/dL AST (14-36) U/L ALT (7-56) U/L Alkaline Phosphatase (38-126) U/L Ammonia 19 (9-33) umol/L Troponin I ng/mL Total Protein (5.8-8.3) g/dL Albumin (3.0-4.8) g/dL Albumin (PEP) (3.8-4.8) g/dL Globulin gm/dL Albumin/Globulin Ratio (1.1-1.8) Flpeh-5-Uwdwpnxkb (0.2-0.3) g/dL Iudig-9-Ypraooyix (0.5-0.9) g/dL Cyyb-2-Eapnxqbp (0.4-0.6) g/dL Ephw-8-Dsdfzizp (0.2-0.5) g/dL Gamma Globulins (0.8-1.7) g/dL Abnorm Protein Band 1 Abnorm Protein Band 2 Abnorm Protein Band 3 Arterial Blood Potassium (3.6-5.2) mmol/L Venous Blood Potassium (3.6-5.2) mmol/L TALON & SPEP Interp Serum Immunofixation (Not Detected) Crossmatch 06/14/18 06/14/18 06/14/18 Range/Units 11:49 08:13 08:00 WBC 12.6 H (4.5-11.0) 10^3/uL RBC 2.91 L (3.5-6.1) 10^6/uL Hgb 8.6 L (12.0-16.0) g/dL Hct 27.5 L (36.0-48.0) % MCV 94.5 (80.0-105.0) fl MCH 29.6 (25.0-35.0) pg MCHC 31.3 (31.0-37.0) g/dl RDW 17.9 H (11.5-14.5) % Plt Count 86 L (120.0-450.0) 10^3/uL Manual Plt Count (120-450) K/mm3 MPV 10.4 (7.0-11.0) fl Neut % (Auto) 85.3 H (50.0-68.0) % Lymph % (Auto) 7.7 L (22.0-35.0) % [place] % (Auto) 6.9 H (1.0-6.0) % Eos % (Auto) 0.0 L (1.5-5.0) % Baso % (Auto) 0.1 (0.0-3.0) % Lymph # (Auto) 1.0 L (1.2-3.4) [place] # (Auto) 0.9 H (0.1-0.6) Eos # (Auto) 0.0 (0.0-0.7) Baso # (Auto) 0.01 (0.0-2.0) K/mm3 Absolute Neuts (auto) 10.71 H (1.4-6.5) pCO2 (35-45) mm/Hg pO2 65 H (30-55) mm/Hg HCO3 (21-28) mmol/L ABG pH (7.35-7.45) ABG Total CO2 (22-28) mmol.L ABG O2 Saturation (95-98) % ABG Base Excess (-2.0-3.0) mmol/L ABG Potassium (3.6-5.2) mmol/L VBG pH 7.35 (7.32-7.43) VBG pCO2 35.0 L (40-60) VBG HCO3 19.3 L (21-28) mmol/l VBG Total CO2 20.4 L (22-28) mmol.L VBG O2 Sat (Calc) 94.3 H (40-65) % VBG Base Excess -5.6 L (0.0-2.0) mmol/L VBG Potassium 5.3 H (3.6-5.2) mmol/L Sodium 138.0 (132-148) mmol/L Chloride 100.0 (98-107) mmol/L Glucose 187 H (65-105) mg/dl Lactate 6.9 H* (0.7-2.1) mmol/L FiO2 21.0 % Crit Value Called To Rica rider Crit Value Called By Ab Blood Gas Notified Time 925 Potassium (3.6-5.0) mmol/L Carbon Dioxide (21-33) mmol/L Anion Gap (10-20) BUN (7-21) mg/dL Creatinine (0.7-1.2) mg/dl Est GFR ( Amer) Est GFR (Non-Af Amer) POC Glucose (mg/dL) 227 H (65-110) mg/dL Random Glucose (70-110) mg/dL Calcium (8.4-10.5) mg/dL Phosphorus (2.5-4.5) mg/dL Magnesium (1.7-2.2) mg/dL Total Bilirubin (0.2-1.3) mg/dL Direct Bilirubin (0.0-0.4) mg/dL AST (14-36) U/L ALT (7-56) U/L Alkaline Phosphatase (38-126) U/L Ammonia (9-33) umol/L Troponin I ng/mL Total Protein (5.8-8.3) g/dL Albumin (3.0-4.8) g/dL Albumin (PEP) (3.8-4.8) g/dL Globulin gm/dL Albumin/Globulin Ratio (1.1-1.8) Ipxbj-4-Zedruoeqj (0.2-0.3) g/dL Ttaki-3-Elsjmhjjb (0.5-0.9) g/dL Gcfg-9-Orhziddb (0.4-0.6) g/dL Fdhr-2-Wqpytrhv (0.2-0.5) g/dL Gamma Globulins (0.8-1.7) g/dL Abnorm Protein Band 1 Abnorm Protein Band 2 Abnorm Protein Band 3 Arterial Blood Potassium (3.6-5.2) mmol/L Venous Blood Potassium 5.3 H (3.6-5.2) mmol/L TALON & SPEP Interp Serum Immunofixation (Not Detected) Crossmatch 06/14/18 06/13/18 06/13/18 Range/Units 07:40 22:23 17:37 WBC (4.5-11.0) 10^3/uL RBC (3.5-6.1) 10^6/uL Hgb (12.0-16.0) g/dL Hct (36.0-48.0) % MCV (80.0-105.0) fl MCH (25.0-35.0) pg MCHC (31.0-37.0) g/dl RDW (11.5-14.5) % Plt Count (120.0-450.0) 10^3/uL Manual Plt Count (120-450) K/mm3 MPV (7.0-11.0) fl Neut % (Auto) (50.0-68.0) % Lymph % (Auto) (22.0-35.0) % [place] % (Auto) (1.0-6.0) % Eos % (Auto) (1.5-5.0) % Baso % (Auto) (0.0-3.0) % Lymph # (Auto) (1.2-3.4) [place] # (Auto) (0.1-0.6) Eos # (Auto) (0.0-0.7) Baso # (Auto) (0.0-2.0) K/mm3 Absolute Neuts (auto) (1.4-6.5) pCO2 (35-45) mm/Hg pO2 (30-55) mm/Hg HCO3 (21-28) mmol/L ABG pH (7.35-7.45) ABG Total CO2 (22-28) mmol.L ABG O2 Saturation (95-98) % ABG Base Excess (-2.0-3.0) mmol/L ABG Potassium (3.6-5.2) mmol/L VBG pH (7.32-7.43) VBG pCO2 (40-60) VBG HCO3 (21-28) mmol/l VBG Total CO2 (22-28) mmol.L VBG O2 Sat (Calc) (40-65) % VBG Base Excess (0.0-2.0) mmol/L VBG Potassium (3.6-5.2) mmol/L Sodium (132-148) mmol/L Chloride (98-107) mmol/L Glucose (65-105) mg/dl Lactate (0.7-2.1) mmol/L FiO2 % Crit Value Called To Crit Value Called By Blood Gas Notified Time Potassium (3.6-5.0) mmol/L Carbon Dioxide (21-33) mmol/L Anion Gap (10-20) BUN (7-21) mg/dL Creatinine (0.7-1.2) mg/dl Est GFR ( Amer) Est GFR (Non-Af Amer) POC Glucose (mg/dL) 191 H 160 H 162 H (65-110) mg/dL Random Glucose (70-110) mg/dL Calcium (8.4-10.5) mg/dL Phosphorus (2.5-4.5) mg/dL Magnesium (1.7-2.2) mg/dL Total Bilirubin (0.2-1.3) mg/dL Direct Bilirubin (0.0-0.4) mg/dL AST (14-36) U/L ALT (7-56) U/L Alkaline Phosphatase (38-126) U/L Ammonia (9-33) umol/L Troponin I ng/mL Total Protein (5.8-8.3) g/dL Albumin (3.0-4.8) g/dL Albumin (PEP) (3.8-4.8) g/dL Globulin gm/dL Albumin/Globulin Ratio (1.1-1.8) Uzzbk-6-Ioimtwzmv (0.2-0.3) g/dL Qoqnh-1-Ovnzwogix (0.5-0.9) g/dL Piqw-8-Mrwpvwja (0.4-0.6) g/dL Arui-3-Zkvjphce (0.2-0.5) g/dL Gamma Globulins (0.8-1.7) g/dL Abnorm Protein Band 1 Abnorm Protein Band 2 Abnorm Protein Band 3 Arterial Blood Potassium (3.6-5.2) mmol/L Venous Blood Potassium (3.6-5.2) mmol/L TALON & SPEP Interp Serum Immunofixation (Not Detected) Crossmatch 06/13/18 06/13/18 06/13/18 Range/Units 11:17 05:40 05:40 WBC (4.5-11.0) 10^3/uL RBC (3.5-6.1) 10^6/uL Hgb (12.0-16.0) g/dL Hct (36.0-48.0) % MCV (80.0-105.0) fl MCH (25.0-35.0) pg MCHC (31.0-37.0) g/dl RDW (11.5-14.5) % Plt Count (120.0-450.0) 10^3/uL Manual Plt Count (120-450) K/mm3 MPV (7.0-11.0) fl Neut % (Auto) (50.0-68.0) % Lymph % (Auto) (22.0-35.0) % [place] % (Auto) (1.0-6.0) % Eos % (Auto) (1.5-5.0) % Baso % (Auto) (0.0-3.0) % Lymph # (Auto) (1.2-3.4) [place] # (Auto) (0.1-0.6) Eos # (Auto) (0.0-0.7) Baso # (Auto) (0.0-2.0) K/mm3 Absolute Neuts (auto) (1.4-6.5) pCO2 (35-45) mm/Hg pO2 (30-55) mm/Hg HCO3 (21-28) mmol/L ABG pH (7.35-7.45) ABG Total CO2 (22-28) mmol.L ABG O2 Saturation (95-98) % ABG Base Excess (-2.0-3.0) mmol/L ABG Potassium (3.6-5.2) mmol/L VBG pH (7.32-7.43) VBG pCO2 (40-60) VBG HCO3 (21-28) mmol/l VBG Total CO2 (22-28) mmol.L VBG O2 Sat (Calc) (40-65) % VBG Base Excess (0.0-2.0) mmol/L VBG Potassium (3.6-5.2) mmol/L Sodium (132-148) mmol/L Chloride (98-107) mmol/L Glucose (65-105) mg/dl Lactate (0.7-2.1) mmol/L FiO2 % Crit Value Called To Crit Value Called By Blood Gas Notified Time Potassium (3.6-5.0) mmol/L Carbon Dioxide (21-33) mmol/L Anion Gap (10-20) BUN (7-21) mg/dL Creatinine (0.7-1.2) mg/dl Est GFR ( Amer) Est GFR (Non-Af Amer) POC Glucose (mg/dL) 207 H (65-110) mg/dL Random Glucose (70-110) mg/dL Calcium (8.4-10.5) mg/dL Phosphorus (2.5-4.5) mg/dL Magnesium (1.7-2.2) mg/dL Total Bilirubin (0.2-1.3) mg/dL Direct Bilirubin (0.0-0.4) mg/dL AST (14-36) U/L ALT (7-56) U/L Alkaline Phosphatase (38-126) U/L Ammonia (9-33) umol/L Troponin I ng/mL Total Protein (5.8-8.3) g/dL Albumin (3.0-4.8) g/dL Albumin (PEP) 3.7 L (3.8-4.8) g/dL Globulin gm/dL Albumin/Globulin Ratio (1.1-1.8) Dbuzu-2-Jtfylqdfn 0.4 H (0.2-0.3) g/dL Jyawn-0-Bqnoykmpg 0.7 (0.5-0.9) g/dL Sejj-3-Wltgqnmm 0.4 (0.4-0.6) g/dL Mwtn-2-Ruhnikxw 0.9 H (0.2-0.5) g/dL Gamma Globulins 1.5 (0.8-1.7) g/dL Abnorm Protein Band 1 TEST NOT PERFORMED Abnorm Protein Band 2 TEST NOT PERFORMED Abnorm Protein Band 3 TEST NOT PERFORMED Arterial Blood Potassium (3.6-5.2) mmol/L Venous Blood Potassium (3.6-5.2) mmol/L TALON & SPEP Interp See note Serum Immunofixation Not detected (Not Detected) Crossmatch 06/12/18 06/12/18 06/11/18 Range/Units 21:39 11:25 10:00 WBC (4.5-11.0) 10^3/uL RBC (3.5-6.1) 10^6/uL Hgb (12.0-16.0) g/dL Hct (36.0-48.0) % MCV (80.0-105.0) fl MCH (25.0-35.0) pg MCHC (31.0-37.0) g/dl RDW (11.5-14.5) % Plt Count (120.0-450.0) 10^3/uL Manual Plt Count (120-450) K/mm3 MPV (7.0-11.0) fl Neut % (Auto) (50.0-68.0) % Lymph % (Auto) (22.0-35.0) % [place] % (Auto) (1.0-6.0) % Eos % (Auto) (1.5-5.0) % Baso % (Auto) (0.0-3.0) % Lymph # (Auto) (1.2-3.4) [place] # (Auto) (0.1-0.6) Eos # (Auto) (0.0-0.7) Baso # (Auto) (0.0-2.0) K/mm3 Absolute Neuts (auto) (1.4-6.5) pCO2 (35-45) mm/Hg pO2 (30-55) mm/Hg HCO3 (21-28) mmol/L ABG pH (7.35-7.45) ABG Total CO2 (22-28) mmol.L ABG O2 Saturation (95-98) % ABG Base Excess (-2.0-3.0) mmol/L ABG Potassium (3.6-5.2) mmol/L VBG pH (7.32-7.43) VBG pCO2 (40-60) VBG HCO3 (21-28) mmol/l VBG Total CO2 (22-28) mmol.L VBG O2 Sat (Calc) (40-65) % VBG Base Excess (0.0-2.0) mmol/L VBG Potassium (3.6-5.2) mmol/L Sodium (132-148) mmol/L Chloride (98-107) mmol/L Glucose (65-105) mg/dl Lactate (0.7-2.1) mmol/L FiO2 % Crit Value Called To Crit Value Called By Blood Gas Notified Time Potassium (3.6-5.0) mmol/L Carbon Dioxide (21-33) mmol/L Anion Gap (10-20) BUN (7-21) mg/dL Creatinine (0.7-1.2) mg/dl Est GFR ( Amer) Est GFR (Non-Af Amer) POC Glucose (mg/dL) 180 H 138 H (65-110) mg/dL Random Glucose (70-110) mg/dL Calcium (8.4-10.5) mg/dL Phosphorus (2.5-4.5) mg/dL Magnesium (1.7-2.2) mg/dL Total Bilirubin (0.2-1.3) mg/dL Direct Bilirubin (0.0-0.4) mg/dL AST (14-36) U/L ALT (7-56) U/L Alkaline Phosphatase (38-126) U/L Ammonia (9-33) umol/L Troponin I ng/mL Total Protein (5.8-8.3) g/dL Albumin (3.0-4.8) g/dL Albumin (PEP) (3.8-4.8) g/dL Globulin gm/dL Albumin/Globulin Ratio (1.1-1.8) Uedph-8-Afwbtwqbs (0.2-0.3) g/dL Binwa-2-Feitpbxdx (0.5-0.9) g/dL Ojhr-0-Imxcyelt (0.4-0.6) g/dL Vkfq-3-Dotmgwat (0.2-0.5) g/dL Gamma Globulins (0.8-1.7) g/dL Abnorm Protein Band 1 Abnorm Protein Band 2 Abnorm Protein Band 3 Arterial Blood Potassium (3.6-5.2) mmol/L Venous Blood Potassium (3.6-5.2) mmol/L TALON & SPEP Interp Serum Immunofixation (Not Detected) Crossmatch See Detail Laboratory Results - last 24 hr 06/11/18 06/12/18 06/12/18 10:00 11:25 21:39 WBC RBC Hgb Hct MCV MCH MCHC RDW Plt Count Manual Plt Count MPV Neut % (Auto) Lymph % (Auto) [place] % (Auto) Eos % (Auto) Baso % (Auto) Lymph # (Auto) [place] # (Auto) Eos # (Auto) Baso # (Auto) Absolute Neuts (auto) pCO2 pO2 HCO3 ABG pH ABG Total CO2 ABG O2 Saturation ABG Base Excess ABG Potassium VBG pH VBG pCO2 VBG HCO3 VBG Total CO2 VBG O2 Sat (Calc) VBG Base Excess VBG Potassium Sodium Chloride Glucose Lactate FiO2 Crit Value Called To Crit Value Called By Blood Gas Notified Time Potassium Carbon Dioxide Anion Gap BUN Creatinine Est GFR ( Amer) Est GFR (Non-Af Amer) POC Glucose (mg/dL) 138 H 180 H Random Glucose Calcium Phosphorus Magnesium Total Bilirubin Direct Bilirubin AST ALT Alkaline Phosphatase Ammonia Troponin I Total Protein Albumin Albumin (PEP) Globulin Albumin/Globulin Ratio Ujcsa-3-Fwajyixkw Ioxvr-4-Gvexwxjfw Redm-5-Ygsibspi Ozbx-8-Rkmwhlry Gamma Globulins Abnorm Protein Band 1 Abnorm Protein Band 2 Abnorm Protein Band 3 Arterial Blood Potassium Venous Blood Potassium TALON & SPEP Interp Serum Immunofixation Crossmatch See Detail 06/13/18 06/13/18 06/13/18 05:40 05:40 11:17 WBC RBC Hgb Hct MCV MCH MCHC RDW Plt Count Manual Plt Count MPV Neut % (Auto) Lymph % (Auto) [place] % (Auto) Eos % (Auto) Baso % (Auto) Lymph # (Auto) [place] # (Auto) Eos # (Auto) Baso # (Auto) Absolute Neuts (auto) pCO2 pO2 HCO3 ABG pH ABG Total CO2 ABG O2 Saturation ABG Base Excess ABG Potassium VBG pH VBG pCO2 VBG HCO3 VBG Total CO2 VBG O2 Sat (Calc) VBG Base Excess VBG Potassium Sodium Chloride Glucose Lactate FiO2 Crit Value Called To Crit Value Called By Blood Gas Notified Time Potassium Carbon Dioxide Anion Gap BUN Creatinine Est GFR ( Amer) Est GFR (Non-Af Amer) POC Glucose (mg/dL) 207 H Random Glucose Calcium Phosphorus Magnesium Total Bilirubin Direct Bilirubin AST ALT Alkaline Phosphatase Ammonia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
[2018-06-15] MEDS: Insulin Reg-LOW-Coverage SC SCH ×4 (08:49→21:58)
--- NOTE | 2018-06-15 09:49 | CARD ---
APPROVED REPORT Date of service: 06/15/2018 EKG Measurement Heart [id number] <Conclusion> Junctional Rythm. RBBB. ST-T Changes.
[2018-06-15] MEDS: Levothyroxine 100 mcg (0.1 mg) Inj IVP SCH (09:52)
[2018-06-15] MEDS: Silver Sulfadiazine 1% Cream (25 gm) TP SCH (10:00)
[2018-06-15] MEDS: Multivitamin Vitamin B Complex (Nephro-Vite) Tab PO SCH (10:00)
[2018-06-15] MEDS: Dexmedetomidine 400mcg/100mL 400 MCG/100 ML BOTTLE IV PRN (10:01)
--- NOTE | 2018-06-15 10:52 | CP.PCM.PN ---
Subjective - Date & Time of Evaluation Date of Evaluation: 06/15/18 Time of Evaluation: 10:48 - Subjective Subjective: Podiatry progress note - Drs. Holt/Felicitas 67F seen and evaluated at bedside in ICU with Dr. Polk. Patient sleeping during visit. Patient not able to relay history or current complaints. Nurse states overnight patient tried to get up and was kicking her legs and may have cut her right toe. Objective - Vital Signs/Intake and Output Vital Signs (last 24 hours): Temp Pulse Resp BP Pulse Ox 97.7 F 65 51 H 123/74 99 06/15/18 09:00 06/15/18 10:00 06/15/18 09:00 06/15/18 09:53 06/15/18 09:00 Intake and Output: 06/15/18 06/15/18 06:59 18:59 Intake Total 810 40 Output Total 0 Balance 810 40 - Medications Medications: Current Medications Acetaminophen (Tylenol 325mg Tab) 650 mg PO Q6 PRN PRN Reason: TEMP>=99.5F Last Admin: 06/11/18 12:02 Dose: 650 mg Acetaminophen (Tylenol 650 Mg Supp) 650 mg RC Q6H PRN PRN Reason: TEMP>=99.5F Acetaminophen (Tylenol 650 Mg Supp) 650 mg RC Q6H PRN PRN Reason: Headache Acetaminophen (Tylenol 325mg Tab) 650 mg PO Q6 PRN PRN Reason: Headache Last Admin: 06/12/18 00:58 Dose: 650 mg Atorvastatin Calcium (Lipitor) 80 mg PO HS [facility] Last Admin: 06/14/18 22:07 Dose: Not Given Cinacalcet (Sensipar) 30 mg PO DIN [facility] Last Admin: 06/14/18 18:03 Dose: Not Given Docusate Sodium (Colace) 100 mg PO TID [facility] Last Admin: 06/14/18 13:40 Dose: Not Given Heparin Sodium (Porcine) (Heparin) 5,000 units SC Q8 [facility]; Protocol Last Admin: 06/15/18 06:23 Dose: 5,000 units Hydrocortisone Sodium Succinate (Solu-Cortef) 50 mg IVP Q6H [facility] Last Admin: 06/15/18 06:23 Dose: 50 mg Aztreonam 500 mg/ Sodium (Chloride) 100 mls @ 100 mls/hr IVPB Q12H [facility]; Protocol Stop: 06/21/18 11:01 Last Admin: 06/15/18 10:01 Dose: 100 mls/hr Dopamine HCl/Dextrose (Dopamine 400mg/250ml D5w) 400 mg in 250 mls @ 16.074 mls/hr IV .[id number] PRN; Protocol PRN Reason: TITRATE TO KEEP SBP>=100 MMHG NOREPINEPHRINE BIT/0.9 % NACL (Levophed 4 Mg/ 250 Ml Ns Premixed) 4 mg in 250 mls @ 15 mls/hr IV .[id number] PRN; Protocol PRN Reason: TITRATE PER MD ORDER Last Admin: 06/15/18 05:06 Dose: 4 mcg/min, 15 mls/hr Vasopressin 20 units/ Sodium (Chloride) 101 mls @ 9.09 mls/hr IV .[id number] [facility]; Protocol Last Admin: 06/15/18 09:53 Dose: 9.09 mls/hr Daptomycin 510 mg/ Sodium (Chloride) 100 mls @ 200 mls/hr IV QOTHERDAY [facility] Stop: 06/17/18 16:01 Last Admin: 06/14/18 11:55 Dose: 200 mls/hr Dobutamine HCl/Dextrose (Dobutamine/Dextrose 5% 500mg/250ml) 500 mg in 250 mls @ 5.144 mls/hr IV .Q24H PRN; Protocol PRN Reason: TITRATE PER PROTOCOL Last Titration: 06/14/18 08:18 Dose: 4 mcg/kg/min, 10.287 mls/hr Dexmedetomidine HCl (Precedex 400mcg/100ml) 400 mcg in 100 mls @ 4.286 mls/hr IV .[id number] PRN; Protocol PRN Reason: Agitation Last Admin: 06/15/18 10:01 Dose: 0.21 mcg/kg/hr, 4.7 mls/hr Metronidazole (Flagyl) 500 mg in 100 mls @ 100 mls/hr IVPB Q8 [facility]; Protocol Stop: 06/19/18 14:00 Last Admin: 06/15/18 06:22 Dose: 100 mls/hr Insulin Human Regular (Humulin R Low) 0 units SC ACHS [facility]; Protocol Last Admin: 06/15/18 08:49 Dose: 1 unit Levothyroxine Sodium (Synthroid) 12.5 mcg IVP DAILY [facility] Last Admin: 06/15/18 09:52 Dose: 12.5 mcg Lorazepam (Ativan) 2 mg IVP ONCE PRN; Protocol PRN Reason: Agitation Last Admin: 06/12/18 19:56 Dose: 2 mg Midodrine (Proamatine) 2.5 mg PO TID [facility] Last Admin: 06/14/18 18:02 Dose: Not Given Mupirocin (Bactroban Ointment) 0 gm TOP BID [facility] Ondansetron HCl (Zofran Inj) 4 mg IVP Q4H PRN PRN Reason: Nausea/Vomiting Pantoprazole Sodium (Protonix Ec Tab) 40 mg PO 0600 [facility] Last Admin: 06/14/18 05:38 Dose: Not Given Pantoprazole Sodium (Protonix Inj) 40 mg IVP Q12 [facility] Last Admin: 06/15/18 09:47 Dose: 40 mg Sennosides (Senokot Tab) 17.2 mg PO HS [facility] Last Admin: 06/14/18 22:08 Dose: Not Given Sevelamer HCl (Renagel) 800 mg PO TID [facility] Last Admin: 06/14/18 19:47 Dose: Not Given Silver Sulfadiazine (Silvadene 1% 25 Gm) 1 gm TP DAILY [facility] Sodium Bicarbonate (Sodium Bicarbonate 8.4% (50 Meq) Syringe) 50 meq IVP ONCE PRN PRN Reason: Other Vitamin B Complex/Vit C/Folic Acid (Nephro-Jose Miguel) 1 tab PO DAILY [facility] Last Admin: 06/14/18 09:00 Dose: Not Given - Labs Labs: 06/15/18 07:25 06/15/18 07:25 PT 18.8 SECONDS (9.4-12.5) H 06/13/18 13:00 INR 1.66 06/13/18 13:00 APTT 137.8 Seconds (26.9-38.3) H* 06/13/18 13:00 - Constitutional Appears: Non-toxic - Head Exam Head Exam: NORMOCEPHALIC - Extremities Exam Additional comments: VASC: DP and PT pulses nonpalpable. CFT <3 seconds to digits. Temperature gradient cool to cool. +1 pitting edema present b/l. NEURO: Light touch and protective sensation absent bilaterally. DERM: RLE=Partial thickness wound noted to dorsum of right hallux measuring approximately 0.5 x 0.5 x 0.1 cm 0 ulcer noted to have a mixed fibrogranular base and hyperkeratosis periwound; no drainage; no purulence; no fluctuance; no undermining; no tunneling; no ascending cellulitis; no malodor. Fifth digit webscape laceration with active bleeding. LLE=Partial thickness ulcerations noted to anteromedial ankle joint; wounds noted to have a mixed fibrogranular base and hyperkeratosis periwound; no periwound erythema; no purulence; no drainage; no fluctuance; no malodor. ORTHO: Pain on palpation distal tuft of right hallux. Pain upon right hallucal IPJ and 1st MPJ ROM. No pain on palpation to LLE wounds. 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 - Neurological Exam Neurological Exam: Alert - Psychiatric Exam Psychiatric exam: Normal Affect Assessment and Plan - Assessment and Plan (Free Text) Assessment: 67F with 1) bilateral lower extremity wounds, stable 2) right hallux pain, 3) right fifth digit laceration Plan: Patient seen and evaluated with Dr. Polk Afebrile, WBC 10.9 PTT 137.8 (06/13) Right foot XR - gross degenerative joint disease 1st MPJ, diffuse osteopenia, old healed fx 1st and 2nd mets, posttraumatic atrophy throughout the right 5th digit and 5th met bone Wounds cleansed with saline and dressed with optifoam b/l Laceration cleansed with alcohol, dressed with xeroform and DSD Wound cx - staph epidermidis New wound cx from laceration site - pending Pain control per medicine PT/OT consulted Podiatry will continue to follow
--- NOTE | 2018-06-15 11:00 | CT ---
Date of service: 06/15/2018 PROCEDURE: CT HEAD WITHOUT CONTRAST. HISTORY: routine COMPARISON: Noncontrast head CT 06/12/2018. TECHNIQUE: Axial computed tomography images were obtained through the head/brain without intravenous contrast. Radiation dose: Total exam DLP = 1042.57 mGy-cm. This CT exam was performed using one or more of the following dose reduction techniques: Automated exposure control, adjustment of the mA and/or kV according to patient size, and/or use of iterative reconstruction technique. FINDINGS: HEMORRHAGE: No intracranial hemorrhage. BRAIN: Good corticomedullary differentiation is seen. Stable, proportional, diffuse expansion of the ventriculosulcal and cisternal spaces is appreciated with white matter lucency compatible with diffuse cerebral atrophy and chronic microangiopathy. No suspicious extra-axial fluid collection is identified and the midline brain anatomy appears grossly nonfocal as imaged. Chronic lacunes reiterated bilateral medial basal ganglia. There is no mass effect throughout. VENTRICLES: Unremarkable. No hydrocephalus. CALVARIUM: Small lucencies in the calvarium are reiterated potentially reflecting venous lakes or in the metastases or multiple myeloma. Clinically correlate further. PARANASAL SINUSES: Unremarkable as visualized. No significant inflammatory changes. MASTOID AIR CELLS: Unremarkable as visualized. No inflammatory changes. OTHER FINDINGS: None. IMPRESSION: Stable limited age-related neuro degenerative change are appreciate which are not significantly changed compared to head CT 06/12/2018. Calvarial lucencies reiterated. Consider follow-up nuclear bone scan or other clinical correlation.
--- NOTE | 2018-06-15 11:52 | PN ---
DATE: 06/15/2018 SUBJECTIVE: The patient is seen and examined at bedside. She is comfortable. She is on 0.2 mcg/kg per hour of Precedex. Her night was uneventful. Her norepinephrine requirement went down to 4 mcg per minute from 6 mcg per minute. She is still on dobutamine 4 mcg/kg per minute. She is on vasopressin 0.03 units per minute and she is on Protonix drip. PHYSICAL EXAMINATION: VITAL SIGNS: Blood pressure 116/44, oxygen saturation 100% on nasal cannula, respiratory rate 24 and heart rate is 60. HEENT: Head and neck atraumatic. LUNGS: Clear to auscultation bilaterally. HEART: Regular rate and rhythm. S1 and S2 normal. ABDOMEN: Soft, nontender, nondistended. MUSCULOSKELETAL: 1+ bilateral pedal and ankle edema. However, it appears to be a going down a little bit. SKIN: Moist. PSYCHIATRIC: The patient is somnolent, however arousable. LABORATORY DATA: WBC 10.9, hemoglobin 9.1 up from 8.6, platelet count 86. Sodium 139, potassium 4.4, chloride 101, carbon dioxide 22, BUN 37, creatinine 5.2 (the patient is on hemodialysis), glucose 206, phosphorus 4.6, magnesium 2.4. Troponin 0.94. MEDICATIONS: Tylenol p.r.n., Lipitor (on hold), aztreonam, Sensipar, daptomycin, Precedex, dobutamine, heparin subcu, Flagyl, regular insulin sliding scale low protocol, Synthroid, Ativan p.r.n., midodrine, Zofran p.r.n., norepinephrine, Protonix, Renagel, vasopressin, vitamin D, vitamin C. ASSESSMENT: This is a 67-year-old lady with acute right ventricular failure with obstructive / cardiogenic shock pathophysiology in the setting of end-stage renal disease/hemodialysis. The patient will be going for VQ scan today to rule out pulmonary embolism. Her norepinephrine requirement is going down. She is tolerating dialysis well. Yesterday, she had 500 mL of fluid removed and day before yesterday 1 liter fluid removed. Heparin drip had to be stopped due to upper gastrointestinal bleed which is now resolved. Hemoglobin is stable. Her lactic acidosis is trending down. Her arterial blood gas did not show any carbon dioxide retention and her today's pH is 7.38. We will continue with heparin subcutaneous for deep vein thrombosis prophylaxis. She is on Protonix drip which will be switched to Protonix b.i.d. as per Gastrointestinal recommendation. Dobutamine will be continued for right ventricular support. The patient has intensive care unit delirium and currently on Precedex. She is comfortable. She is somewhat somnolent, however, hemodynamically tolerates Precedex well. Night was uneventful. We will continue to target euvolemia, euglycemia, normothermia and oxygen saturation more than 90%. Addendum: Off of NE, more alert, awake. oriented in time place and person. CTH- no acute intracranial pathology. V/Q scan-low probability. cardiology follow up is appreciated. ccm time 40 min [place] MD MTDMaria De Jesus
--- NOTE | 2018-06-15 12:52 | CP.PCM.PN ---
Subjective - Date & Time of Evaluation Date of Evaluation: 06/15/18 Time of Evaluation: 11:00 - Subjective Subjective: Patient is on V/Q scan today, not in distress, still not responding appropriately. No fevers overnight. Objective - Vital Signs/Intake and Output Vital Signs (last 24 hours): Temp Pulse Resp BP Pulse Ox 98.6 F 78 14 112/28 L 96 06/14/18 06:00 06/14/18 06:00 06/14/18 06:00 06/14/18 06:00 06/12/18 20:01 Intake and Output: 06/14/18 06/14/18 06:59 18:59 Intake Total 300 290 Output Total 1000 Balance -700 290 - Medications Medications: Current Medications Acetaminophen (Tylenol 325mg Tab) 650 mg PO Q6 PRN PRN Reason: TEMP>=99.5F Last Admin: 06/11/18 12:02 Dose: 650 mg Acetaminophen (Tylenol 650 Mg Supp) 650 mg RC Q6H PRN PRN Reason: TEMP>=99.5F Acetaminophen (Tylenol 650 Mg Supp) 650 mg RC Q6H PRN PRN Reason: Headache Acetaminophen (Tylenol 325mg Tab) 650 mg PO Q6 PRN PRN Reason: Headache Last Admin: 06/12/18 00:58 Dose: 650 mg Atorvastatin Calcium (Lipitor) 80 mg PO HS [facility] Last Admin: 06/13/18 22:44 Dose: Not Given Cinacalcet (Sensipar) 30 mg PO DIN [facility] Last Admin: 06/13/18 18:40 Dose: Not Given Docusate Sodium (Colace) 100 mg PO TID [facility] Last Admin: 06/14/18 13:40 Dose: Not Given Heparin Sodium (Porcine) (Heparin) 5,000 units SC Q8 [facility]; Protocol Last Admin: 06/14/18 13:44 Dose: 5,000 units Hydrocortisone Sodium Succinate (Solu-Cortef) 50 mg IVP Q6H [facility] Last Admin: 06/14/18 11:55 Dose: 50 mg Aztreonam 500 mg/ Sodium (Chloride) 100 mls @ 100 mls/hr IVPB Q12H [facility]; Protocol Stop: 06/21/18 11:01 Last Admin: 06/14/18 11:55 Dose: 100 mls/hr Dopamine HCl/Dextrose (Dopamine 400mg/250ml D5w) 400 mg in 250 mls @ 16.074 mls/hr IV .[id number] PRN; Protocol PRN Reason: TITRATE TO KEEP SBP>=100 MMHG NOREPINEPHRINE BIT/0.9 % NACL (Levophed 4 Mg/ 250 Ml Ns Premixed) 4 mg in 250 mls @ 15 mls/hr IV .[id number] PRN; Protocol PRN Reason: TITRATE PER MD ORDER Last Admin: 06/14/18 08:17 Dose: 8 mcg/min, 30 mls/hr Vasopressin 20 units/ Sodium (Chloride) 101 mls @ 9.09 mls/hr IV .Q11H7M [facility]; Protocol Last Admin: 06/13/18 23:03 Dose: 9.09 mls/hr Daptomycin 510 mg/ Sodium (Chloride) 100 mls @ 200 mls/hr IV QOTHERDAY [facility] Stop: 06/17/18 16:01 Last Admin: 06/14/18 11:55 Dose: 200 mls/hr Dobutamine HCl/Dextrose (Dobutamine/Dextrose 5% 500mg/250ml) 500 mg in 250 mls @ 5.144 mls/hr IV .Q24H PRN; Protocol PRN Reason: TITRATE PER PROTOCOL Last Titration: 06/14/18 08:18 Dose: 4 mcg/kg/min, 10.287 mls/hr Pantoprazole Sodium (Protonix 40mg Ivpb) 40 mg in 100 mls @ 20 mls/hr IVPB .Q5H [facility] Last Admin: 06/14/18 05:37 Dose: 20 mls/hr Dexmedetomidine HCl (Precedex 400mcg/100ml) 400 mcg in 100 mls @ 4.286 mls/hr IV .[id number] PRN; Protocol PRN Reason: Agitation Last Admin: 06/14/18 12:01 Dose: 2 mcg/kg/hr, 42.865 mls/hr Metronidazole (Flagyl) 500 mg in 100 mls @ 100 mls/hr IVPB Q8 [facility]; Protocol Stop: 06/19/18 14:00 Last Admin: 06/14/18 13:44 Dose: 100 mls/hr Insulin Human Regular (Humulin R Low) 0 units SC ACHS [facility]; Protocol Last Admin: 06/14/18 12:00 Dose: 2 unit Levothyroxine Sodium (Synthroid) 12.5 mcg IVP DAILY [facility] Last Admin: 06/14/18 13:50 Dose: 12.5 mcg Lorazepam (Ativan) 2 mg IVP ONCE PRN; Protocol PRN Reason: Agitation Last Admin: 06/12/18 19:56 Dose: 2 mg Midodrine (Proamatine) 2.5 mg PO TID [facility] Last Admin: 06/14/18 09:00 Dose: Not Given Mupirocin (Bactroban Ointment) 0 gm TOP BID [facility] Ondansetron HCl (Zofran Inj) 4 mg IVP Q4H PRN PRN Reason: Nausea/Vomiting Pantoprazole Sodium (Protonix Ec Tab) 40 mg PO 0600 [facility] Last Admin: 06/14/18 05:38 Dose: Not Given Sennosides (Senokot Tab) 17.2 mg PO HS [facility] Last Admin: 06/13/18 22:44 Dose: Not Given Sevelamer HCl (Renagel) 800 mg PO TID [facility] Last Admin: 06/14/18 13:38 Dose: Not Given Silver Sulfadiazine (Silvadene 1% 25 Gm) 1 gm TP DAILY [facility] Sodium Bicarbonate (Sodium Bicarbonate 8.4% (50 Meq) Syringe) 50 meq IVP ONCE PRN PRN Reason: Other Vitamin B Complex/Vit C/Folic Acid (Nephro-Jose Miguel) 1 tab PO DAILY [facility] Last Admin: 06/14/18 09:00 Dose: Not Given - Labs Labs: 06/14/18 08:00 06/14/18 04:45 PT 18.8 SECONDS (9.4-12.5) H 06/13/18 13:00 INR 1.66 06/13/18 13:00 APTT 137.8 Seconds (26.9-38.3) H* 06/13/18 13:00 - Constitutional Appears: Chronically Ill - Head Exam Head Exam: NORMAL INSPECTION - Neck Exam Neck Exam: absent: Meningismus - Respiratory Exam Respiratory Exam: Decreased Breath Sounds - Cardiovascular Exam Cardiovascular Exam: +S1, +S2 - GI/Abdominal Exam GI & Abdominal Exam: Soft. absent: Tenderness Assessment and Plan - Assessment and Plan (Free Text) Plan: Assessment Hypotension, consider due to right sided heart failure, consider GI bleeding coagulase negative staph bacteremia, source not clear right breast cellulitis obesity with BMI 31 ESRD on HD hypothyroidism DM dyslipidemia CAD S/P CABG S/P foot surgery Plan continue Azactam, Flagyl, and Daptomycin day 5 ; blood cx showing CoNS from 06/12 - source is not clear, 2D echo on 06/12 was not specific for vegetations, repeat blood cx negative so far discussed with dr. Hall - patient may have right sided heart failure causing hypotension, patient being managed by ICU team will monitor clinically prognosis is guarded follow up further ICU work up for possible GI bleeding
--- NOTE | 2018-06-15 13:38 | PN ---
DATE: 06/15/2018 SUBJECTIVE: The patient is seen in ICU, bed 5. The patient is still on 1:1 sitter. The patient is arousable, responsive to painful stimuli. The patient appears to be lethargic. The patient is still on 1:1. The patient was noted to be episodically agitated as per the 1:1 sitter. The patient had hemodialysis done yesterday. PHYSICAL EXAMINATION: VITAL SIGNS: T-max is 98.6. Telemetry shows sinus rhythm, intermittent AFib. Blood pressure today morning 123/74, 116/44, 121/50, 120/53, 144/22. Respiration is 13, O2 sat 99-100% on nasal cannula. HEENT AND NECK: Head: Normocephalic, atraumatic. HEENT examination shows pinkish pale conjunctivae. Anicteric sclerae. No oropharyngeal lesion. No neck rigidity. Positive right neck internal jugular triple-lumen catheter. CHEST: Shows median sternotomy surgical scar. Positive left upper chest pacemaker. LUNGS: Show occasional upper lung field rhonchi. CARDIOVASCULAR: Shows S1, S2, regular rhythm. Positive systolic murmur left sternal border, right second intercostal space, left second intercostal space. ABDOMEN: Soft, positive bowel sounds, protuberant. GENITALIA: Female. RECTAL: Deferred. EXTREMITIES: Show no pitting edema. Trace swelling of the lower extremity. Positive foot dressing and a Band-Aid noted. MUSCULOSKELETAL: Shows a body mass index of 34. NEUROLOGIC: The patient is lethargic, arousable to painful stimuli. DIAGNOSTICS: 06/15/2018, WBC 10.9, hemoglobin and hematocrit 9.1 and 28.8, platelets 71 and 86,000. Granulocytes 85% segs. VBG shows a pH of 7.38, pCO2 is 39, bicarb 23, is 87. Lactic acid is 3.5. Sodium 139, potassium 4.4, chloride 101, CO2 of 22, anion gap 21, BUN 37, creatinine 5.2, GFR 10, glucose 206. Fructosamine is elevated to 477, calcium 8.1, phosphorus 4.6, magnesium 2.2, total bili 1.6, direct bili 1.5, AST 52. Troponin is 0.94 which has gone up. Immunofixation and serum protein electrophoresis suggest acute inflammation. Hepatitis B surface antibody positive, hepatitis B core antigen negative. Blood cultures, coagulase-negative Staphylococcus bacteremia and left foot cultures Staphylococcus epidermidis, the patient received 1 unit PRBC. IMPRESSION AND PLAN: 1. Possible cardiogenic versus septic shock. 2. Questionable acute myocardial infarction with elevated troponin. 3. Paroxysmal atrial fibrillation, paroxysmal junctional rhythm. 4. Right bundle-branch block. 5. Hypotensive hypovolemic shock. 6. Lethargy. 7. Encephalopathy. 8. Leukocytosis. 9. Normocytic anemia. 10. Granulocytosis. 11. Elevated erythrocyte sedimentation rate. 12. Elevated reticulocyte count. 13. Iatrogenic coagulopathy. 14. Hypoxemia. 15. Refractory lactic acidosis and increased anion gap metabolic acidosis. 16. Non-hemolyzed hyperkalemia. 17. End-stage renal disease, hemodialysis dependent. 18. Hyperphosphatemia with secondary hyperparathyroidism. 19. Diabetes mellitus, uncontrolled with hyperfructosemia with fructose level of 477. 20. Iron-deficiency anemia of chronic kidney disease. 21. Hyperkalemia. 22. Elevated C-reactive protein of greater than 15. 23. Hypothyroidism. 24. Lactic acidosis. 25. Coagulase-negative Staphylococcus aureus bacteremia. 26. Staphylococcus epidermidis, left foot diabetic foot ulceration. 27. Status post packed red blood cell transfusion x1. 28. Inotropes and pressor dependent septic versus hypovolemic hypotensive and cardiogenic shock. 29. Questionable upper gastrointestinal bleeding versus iatrogenic coagulopathy causing bleeding. 30. Left ventricular ejection fraction of 63%. 31. Concentric left ventricular hypertrophy. 32. Grade 2 pseudonormal filling dynamics. 33. Severely dilated right ventricle. 34. Moderately reduced right ventricular systolic function. 35. Mildly dilated right and left atrium. 36. Trace aortic regurgitation. 37. Moderate to severe mitral regurgitation. 38. Severe tricuspid regurgitation. 39. Trivial pulmonic valvular regurgitation. 40. Altered mental status and encephalopathy with lethargy, etiology undetermined. 41. Coronary artery disease, coronary artery bypass graft. 42. Questionable upper gastrointestinal bleeding with coffee-ground emesis. 43. Bony lytic lesions. 44. Deconditioning. 45. Gait dysfunction. PLAN: At this time, the patient has been ordered repeat labs, serial labs. The patient is on 1:1 watch. The patient's repeat blood cultures has been ordered. Current consultation Cardiology, Gastroenterology, Hematology/Oncology, Infectious Disease, Nephrology, Podiatry, Intensive Care. CURRENT MEDICATIONS: Ativan 2 mg IV p.r.n., Azactam 500 IV every 12 hours, Bactroban cream to the affected area, Colace 100 mg three times a day, Cubicin 510 mg every other day. The patient is on Precedex, dobutamine and Levophed drip. The patient is on Flagyl 500 IV every 8 hours, heparin 5000 subcutaneous every 8 hours, Humulin low-dose sliding scale coverage, Lipitor 80 mg at bedtime, Nephro-Jose Miguel 1 tablet daily, midodrine 2.5 three times a day, Protonix 40 mg daily, Renagel 800 three times a day, Senokot 17.2 mg at bedtime, Sensipar 30 mg daily, Silvadene cream. The patient is on Solu-Cortef still 50 mg IV every 6 hours, Synthroid 12.5 mg IV daily, Tylenol p.o. suppository p.r.n., vasopressin drip at 0.03 units per hour, Zofran 4 mg IV every 4 hours p.r.n. Breast ultrasound ordered, VQ scan ordered. Repeat CT head ordered, repeat echo ordered by Infectious Disease today. EEG ordered. The patient is on n.p.o. diet. The patient will be ordered speech and swallow evaluation. The patient will be continued to be monitored in ICU with close followup with all the subspecialty. The patient's overall prognosis is guarded to poor. Condition critical. Time spent more than 35 minutes. Dictated and electronically signed, not read. Jimy Simeon MD
--- NOTE | 2018-06-15 13:47 | CP.PCM.PN ---
Subjective - Date & Time of Evaluation Date of Evaluation: 06/15/18 Time of Evaluation: 13:45 - Subjective Subjective: Nephrology Consultation Note Assessment: critical Shock ? cardiogenic/septic (GPC) Diabetic chronic Kidney Disease (E11.22) Hypertensive Chronic Kidney Disease (I12.0) End stage renal disease (N18.6) dependence on hemodialysis (Z99.2) (TTS) via AVF Anemia (D64.9), Hyperphosphatemia (E83.39), Secondary Hyperparathyroidism (E21.1), HTN (I12.0) CAD s/p CABG obesity thrombocytopenia Lytic lesions ? underlying malignancy breast cellulitis versus malignancy lactic acidosis, GI bleed RV dysfunction, moderate to severe MR Plan: Will plan for next dialysis tomorrow. Continue with Nephrovite 1 tab/day. PRBC as needed for anemia. defer further ADAM as concerns with malignancy. Hb 8.5 heme/onc following hold phos binders due to AMS, last phos level 5.6 PTH 547 pt started on pressors. maintain hemodynamic stable Glycemic control, Dialysis consistent diet Further work up/management as per primary team Dose meds/antibiotics (if needed) for ESRD status. Avoid fleets enema/magnesium based laxatives. ID following Thanks for allowing me to participate in care of your patient. Will follow patient with you. Please call if any Qs. had d/w team Dr Amrit Malone Office: [phone] Subjective: Noted events overnight. Patients in ICU. on pressors. pt more awake and responsive but unable to provide ROS Physical Examination: General Appearance: in no acute respiratory distress, ill appearing Vitals reviewed and noted as below Head; Atraumatic, normocephalic ENT: no ulcers no thrush. Tongue is midline/dry. Oropharynx: no rash or ulcers. Neck; supple no lymphadenopathy, no thyromegaly or bruit Lungs: Normal respiratory rate/effort. Breath sounds bilateral equal and with rales + Heart: Normal rate. s1s2 normal. No rub or gallop. Extremities: no edema. No varicose veins Neurological: Patient is AMS status. mostly non communicative but more responsive Skin: Warm and dry. Normal turgor. No rash. Palpitation: Normal elasticity for age Abdomen: Abdomen is soft. Bowel sounds +. There is no abdominal tenderness, no guarding/rigidity or organomegaly Psych: deferred MSK: no joint tenderness or swelling. Digits and nails normal, no deformity : kidney or bladder not palpable Access: AVF 06/12/18: breast examined with RN,Rt breast everardo-areolar swelling fulness ? mass, pe[place] orange appearance Labs/imaging reviewed. Past medical history, past surgical history, family history, social history, allergy reviewed and noted as below Family Hx: no hx of CKD. Non contributory Objective - Vital Signs/Intake and Output Vital Signs (last 24 hours): Temp Pulse Resp BP Pulse Ox 97.7 F 60 21 92/35 L 98 06/15/18 09:00 06/15/18 12:10 06/15/18 10:30 06/15/18 10:30 06/15/18 12:10 Intake and Output: 06/15/18 06/15/18 06:59 18:59 Intake Total 810 40 Output Total 0 Balance 810 40 - Medications Medications: Current Medications Acetaminophen (Tylenol 325mg Tab) 650 mg PO Q6 PRN PRN Reason: TEMP>=99.5F Last Admin: 06/11/18 12:02 Dose: 650 mg Acetaminophen (Tylenol 650 Mg Supp) 650 mg RC Q6H PRN PRN Reason: TEMP>=99.5F Acetaminophen (Tylenol 650 Mg Supp) 650 mg RC Q6H PRN PRN Reason: Headache Acetaminophen (Tylenol 325mg Tab) 650 mg PO Q6 PRN PRN Reason: Headache Last Admin: 06/12/18 00:58 Dose: 650 mg Atorvastatin Calcium (Lipitor) 80 mg PO HS [facility] Last Admin: 06/14/18 22:07 Dose: Not Given Cinacalcet (Sensipar) 30 mg PO DIN [facility] Last Admin: 06/14/18 18:03 Dose: Not Given Docusate Sodium (Colace) 100 mg PO TID [facility] Last Admin: 06/14/18 13:40 Dose: Not Given Heparin Sodium (Porcine) (Heparin) 5,000 units SC Q8 [facility]; Protocol Last Admin: 06/15/18 06:23 Dose: 5,000 units Hydrocortisone Sodium Succinate (Solu-Cortef) 50 mg IVP Q6H [facility] Last Admin: 06/15/18 06:23 Dose: 50 mg Aztreonam 500 mg/ Sodium (Chloride) 100 mls @ 100 mls/hr IVPB Q12H [facility]; Protocol Stop: 06/21/18 11:01 Last Admin: 06/15/18 10:01 Dose: 100 mls/hr Dopamine HCl/Dextrose (Dopamine 400mg/250ml D5w) 400 mg in 250 mls @ 16.074 mls/hr IV .[id number] PRN; Protocol PRN Reason: TITRATE TO KEEP SBP>=100 MMHG NOREPINEPHRINE BIT/0.9 % NACL (Levophed 4 Mg/ 250 Ml Ns Premixed) 4 mg in 250 mls @ 15 mls/hr IV .[id number] PRN; Protocol PRN Reason: TITRATE PER MD ORDER Last Admin: 06/15/18 05:06 Dose: 4 mcg/min, 15 mls/hr Vasopressin 20 units/ Sodium (Chloride) 101 mls @ 9.09 mls/hr IV .Q11H7M [facility]; Protocol Last Admin: 06/15/18 09:53 Dose: 9.09 mls/hr Daptomycin 510 mg/ Sodium (Chloride) 100 mls @ 200 mls/hr IV QOTHERDAY [facility] Stop: 06/17/18 16:01 Last Admin: 06/14/18 11:55 Dose: 200 mls/hr Dobutamine HCl/Dextrose (Dobutamine/Dextrose 5% 500mg/250ml) 500 mg in 250 mls @ 5.144 mls/hr IV .Q24H PRN; Protocol PRN Reason: TITRATE PER PROTOCOL Last Titration: 06/14/18 08:18 Dose: 4 mcg/kg/min, 10.287 mls/hr Dexmedetomidine HCl (Precedex 400mcg/100ml) 400 mcg in 100 mls @ 4.286 mls/hr IV .[id number] PRN; Protocol PRN Reason: Agitation Last Admin: 06/15/18 10:01 Dose: 0.21 mcg/kg/hr, 4.7 mls/hr Metronidazole (Flagyl) 500 mg in 100 mls @ 100 mls/hr IVPB Q8 [facility]; Protocol Stop: 06/19/18 14:00 Last Admin: 06/15/18 06:22 Dose: 100 mls/hr Insulin Human Regular (Humulin R Low) 0 units SC ACHS [facility]; Protocol Last Admin: 06/15/18 08:49 Dose: 1 unit Levothyroxine Sodium (Synthroid) 12.5 mcg IVP DAILY [facility] Last Admin: 06/15/18 09:52 Dose: 12.5 mcg Lorazepam (Ativan) 2 mg IVP ONCE PRN; Protocol PRN Reason: Agitation Last Admin: 06/12/18 19:56 Dose: 2 mg Midodrine (Proamatine) 2.5 mg PO TID [facility] Last Admin: 06/14/18 18:02 Dose: Not Given Mupirocin (Bactroban Ointment) 0 gm TOP BID [facility] Ondansetron HCl (Zofran Inj) 4 mg IVP Q4H PRN PRN Reason: Nausea/Vomiting Pantoprazole Sodium (Protonix Ec Tab) 40 mg PO 0600 [facility] Last Admin: 06/14/18 05:38 Dose: Not Given Pantoprazole Sodium (Protonix Inj) 40 mg IVP Q12 [facility] Last Admin: 06/15/18 09:47 Dose: 40 mg Sennosides (Senokot Tab) 17.2 mg PO HS [facility] Last Admin: 06/14/18 22:08 Dose: Not Given Sevelamer HCl (Renagel) 800 mg PO TID [facility] Last Admin: 06/14/18 19:47 Dose: Not Given Silver Sulfadiazine (Silvadene 1% 25 Gm) 1 gm TP DAILY [facility] Sodium Bicarbonate (Sodium Bicarbonate 8.4% (50 Meq) Syringe) 50 meq IVP ONCE PRN PRN Reason: Other Vitamin B Complex/Vit C/Folic Acid (Nephro-Jose Miguel) 1 tab PO DAILY [facility] Last Admin: 06/14/18 09:00 Dose: Not Given - Labs Labs: 06/15/18 07:25 06/15/18 07:25 PT 18.8 SECONDS (9.4-12.5) H 06/13/18 13:00 INR 1.66 06/13/18 13:00 APTT 137.8 Seconds (26.9-38.3) H* 06/13/18 13:00
--- NOTE | 2018-06-15 13:48 | PN ---
DATE: 06/15/2018 SUBJECTIVE: The patient is lying in bed in ICU. She is awake, but delirious. She is on two-point soft restraints. She has not had any hematemesis, melena or rectal bleeding. PHYSICAL EXAMINATION: VITAL SIGNS: Temperature 97.7, blood pressure 120/57, heart rate 65. HEENT: Sclerae to be muddy, conjunctivae pale. NECK: Supple. CHEST: Distant breath sounds. HEART: Regular rate and rhythm. ABDOMEN: Obese, soft, nontender. EXTREMITIES: Trace pedal edema. LABORATORY DATA: White blood cell count 10.9, hemoglobin 9.1. Chemistries reveal BUN 37, creatinine 5.2, total bilirubin 1.6, AST 52, ALT 33, troponin 0.94. Blood cultures are negative for coag-negative staph. IMPRESSION: 1. Shock, possibly septic shock, patient is on pressors. 2. Hematemesis which has resolved. I suspect this is related to a stress gastritis. 3. End-stage renal disease, on dialysis. RECOMMENDATIONS: 1. Advance diet as tolerated. 2. Continue IV Protonix. The drip can be stopped and she be continued on 40 mg IV every 12 hours. 3. Follow serial hematocrits.. 4. Continue supportive care. Her prognosis is guarded. No plans for endoscopy at this time as bleeding appears to have stopped. I have discussed this case with Dr. Hall regarding the use of heparin if needed. If the patient does return clerk to have a pulmonary embolus, the patient can be started on heparin drip with close observation for GI bleeding. Angelito Terry MD
--- NOTE | 2018-06-15 15:19 | NM ---
Date of service: 06/15/2018 COMPARISON: Not available TECHNIQUE: 31.3 mCi technetium 99-m DTPA aerosol. 5.3 mCI technetium 99-m MAA administered intravenously. FINDINGS: VENTILATION COMPONENT: Mild central tracheobronchial deposition of the DTPA aerosol. There is poor ventilation of the left apex but normal perfusion is demonstrated in this location. No other ventilatory defects are demonstrated. PERFUSION COMPONENT: Normal. IMPRESSION: Lowprobability ventilation perfusion scan for pulmonary embolism.
--- NOTE | 2018-06-15 15:43 | RAD ---
Date of service: 06/15/2018 HISTORY: for v/q scan clearance COMPARISON: Portable chest radiograph 06/13/2018. FINDINGS: LUNGS: Pacemaker and right central venous line unchanged in position/reiterated. Elevated right hemidiaphragm appears stable. No acute airspace disease bilaterally. PLEURA: No significant pleural effusion identified, no pneumothorax apparent. CARDIOVASCULAR: No aortic atherosclerotic calcification present. Prominent cardiomegaly again evident with post CABG changes reiterated. Coronary artery stents identified. Borderline pulmonary vascular congestion. OSSEOUS STRUCTURES: No significant abnormalities. VISUALIZED UPPER ABDOMEN: Normal. OTHER FINDINGS: None. IMPRESSION: Cardiomegaly and borderline pulmonary vascular congestion evident. No acute airspace disease. Elevated right hemidiaphragm unchanged.
--- NOTE | 2018-06-15 16:53 | CP.PCM.PCO ---
Physician Communication Note - Physician Communication Note Physician Communication Note: pt seen,Ngt removed,hematesis stopped, on Dobutamine,Levophed,Vasopressin,
[2018-06-15] MEDS: Mupirocin 2% Ointment 15 GM TUBE TOP SCH ×3 (18:05→18:07)
--- NOTE | 2018-06-15 18:56 | PN ---
DATE: 06/15/2018 SUBJECTIVE: The patient is awake without dyspnea. PHYSICAL EXAMINATION: VITAL SIGNS: Blood pressure 92/40, heart rate is 60s. NECK: Negative JVD. LUNGS: Decreased breath sounds. HEART: Reveal S1, S2. EXTREMITIES: Without change. LABORATORY DATA: Hemoglobin is 9.1. Chemistries, BUN and creatinine 37 and 5.2. The troponin is up to 0.94. IMPRESSION: 1. Hypotension. 2. Non-ST elevation myocardial infarction. 3. Right ventricular dilatation. 4. Marked anemia. PLAN: We will need to consider cardiac catheterization once her bleeding has been stabilized. Chan Berman MD
--- NOTE | 2018-06-15 20:52 | CP.PCM.PN ---
Subjective - Date & Time of Evaluation Date of Evaluation: 06/15/18 Time of Evaluation: 18:00 - Subjective Subjective: More awake and communicative Objective - Vital Signs/Intake and Output Vital Signs (last 24 hours): Temp Pulse Resp BP Pulse Ox 98.3 F 60 23 113/63 100 06/15/18 18:00 06/15/18 18:40 06/15/18 18:40 06/15/18 18:30 06/15/18 18:40 Intake and Output: 06/15/18 06/16/18 18:59 06:59 Intake Total 763 Output Total 0 Balance 763 - Medications Medications: Current Medications Acetaminophen (Tylenol 325mg Tab) 650 mg PO Q6 PRN PRN Reason: TEMP>=99.5F Last Admin: 06/11/18 12:02 Dose: 650 mg Acetaminophen (Tylenol 650 Mg Supp) 650 mg RC Q6H PRN PRN Reason: TEMP>=99.5F Acetaminophen (Tylenol 650 Mg Supp) 650 mg RC Q6H PRN PRN Reason: Headache Acetaminophen (Tylenol 325mg Tab) 650 mg PO Q6 PRN PRN Reason: Headache Last Admin: 06/12/18 00:58 Dose: 650 mg Atorvastatin Calcium (Lipitor) 80 mg PO HS [facility] Last Admin: 06/14/18 22:07 Dose: Not Given Cinacalcet (Sensipar) 30 mg PO DIN [facility] Last Admin: 06/15/18 18:16 Dose: Not Given Docusate Sodium (Colace) 100 mg PO TID [facility] Last Admin: 06/15/18 18:15 Dose: Not Given Heparin Sodium (Porcine) (Heparin) 5,000 units SC Q8 [facility]; Protocol Last Admin: 06/15/18 14:01 Dose: 5,000 units Hydrocortisone Sodium Succinate (Solu-Cortef) 50 mg IVP Q6H [facility] Last Admin: 06/15/18 18:11 Dose: 50 mg Aztreonam 500 mg/ Sodium (Chloride) 100 mls @ 100 mls/hr IVPB Q12H [facility]; Protocol Stop: 06/21/18 11:01 Last Admin: 06/15/18 10:01 Dose: 100 mls/hr Dopamine HCl/Dextrose (Dopamine 400mg/250ml D5w) 400 mg in 250 mls @ 16.074 mls/hr IV .[id number] PRN; Protocol PRN Reason: TITRATE TO KEEP SBP>=100 MMHG NOREPINEPHRINE BIT/0.9 % NACL (Levophed 4 Mg/ 250 Ml Ns Premixed) 4 mg in 250 mls @ 15 mls/hr IV .[id number] PRN; Protocol PRN Reason: TITRATE PER MD ORDER Last Admin: 06/15/18 05:06 Dose: 4 mcg/min, 15 mls/hr Vasopressin 20 units/ Sodium (Chloride) 101 mls @ 9.09 mls/hr IV .Q11H7M [facility]; Protocol Last Admin: 06/15/18 09:53 Dose: 9.09 mls/hr Daptomycin 510 mg/ Sodium (Chloride) 100 mls @ 200 mls/hr IV QOTHERDAY [facility] Stop: 06/17/18 16:01 Last Admin: 06/14/18 11:55 Dose: 200 mls/hr Dobutamine HCl/Dextrose (Dobutamine/Dextrose 5% 500mg/250ml) 500 mg in 250 mls @ 5.144 mls/hr IV .Q24H PRN; Protocol PRN Reason: TITRATE PER PROTOCOL Last Titration: 06/14/18 08:18 Dose: 4 mcg/kg/min, 10.287 mls/hr Dexmedetomidine HCl (Precedex 400mcg/100ml) 400 mcg in 100 mls @ 4.286 mls/hr IV .[id number] PRN; Protocol PRN Reason: Agitation Last Admin: 06/15/18 10:01 Dose: 0.21 mcg/kg/hr, 4.7 mls/hr Metronidazole (Flagyl) 500 mg in 100 mls @ 100 mls/hr IVPB Q8 [facility]; Protocol Stop: 06/19/18 14:00 Last Admin: 06/15/18 14:01 Dose: 100 mls/hr Insulin Human Regular (Humulin R Low) 0 units SC ACHS [facility]; Protocol Last Admin: 06/15/18 18:10 Dose: 2 unit Levothyroxine Sodium (Synthroid) 12.5 mcg IVP DAILY [facility] Last Admin: 06/15/18 09:52 Dose: 12.5 mcg Lorazepam (Ativan) 2 mg IVP ONCE PRN; Protocol PRN Reason: Agitation Last Admin: 06/12/18 19:56 Dose: 2 mg Midodrine (Proamatine) 2.5 mg PO TID [facility] Last Admin: 06/15/18 18:17 Dose: Not Given Mupirocin (Bactroban Ointment) 0 gm TOP BID [facility] Last Admin: 06/15/18 18:07 Dose: 1 cm2 Ondansetron HCl (Zofran Inj) 4 mg IVP Q4H PRN PRN Reason: Nausea/Vomiting Pantoprazole Sodium (Protonix Ec Tab) 40 mg PO 0600 [facility] Last Admin: 06/14/18 05:38 Dose: Not Given Pantoprazole Sodium (Protonix Inj) 40 mg IVP Q12 [facility] Last Admin: 06/15/18 09:47 Dose: 40 mg Sennosides (Senokot Tab) 17.2 mg PO HS [facility] Last Admin: 06/14/18 22:08 Dose: Not Given Sevelamer HCl (Renagel) 800 mg PO TID [facility] Last Admin: 06/15/18 18:17 Dose: Not Given Silver Sulfadiazine (Silvadene 1% 25 Gm) 1 gm TP DAILY [facility] Last Admin: 06/15/18 10:00 Dose: 1 gm Sodium Bicarbonate (Sodium Bicarbonate 8.4% (50 Meq) Syringe) 50 meq IVP ONCE PRN PRN Reason: Other Vitamin B Complex/Vit C/Folic Acid (Nephro-Jose Miguel) 1 tab PO DAILY [facility] Last Admin: 06/15/18 10:00 Dose: Not Given - Labs Labs: 06/15/18 07:25 06/15/18 07:25 PT 18.8 SECONDS (9.4-12.5) H 06/13/18 13:00 INR 1.66 06/13/18 13:00 APTT 137.8 Seconds (26.9-38.3) H* 06/13/18 13:00 - Head Exam Head Exam: ATRAUMATIC - Eye Exam Eye Exam: Normal appearance - ENT Exam ENT Exam: Mucous Membranes Dry - Respiratory Exam Respiratory Exam: NORMAL BREATHING PATTERN - Cardiovascular Exam Cardiovascular Exam: +S1, +S2 - GI/Abdominal Exam GI & Abdominal Exam: Normal Bowel Sounds Assessment and Plan (1) Thrombocytopenia Assessment & Plan: suspect infection related borderline fibrinogen; likely resolving DIC Status: Acute (2) Anemia Assessment & Plan: chronic disease, CKD transfusion support PRN Status: Acute (3) Coagulopathy Assessment & Plan: nutritional DIC Status: Acute (4) Lytic bone lesions on xray Assessment & Plan: monoclonal protein negative f/u free light chain assay malignancy w/u when more stable - right breast/chest wall edema ?cellulitis ?malignancy Status: Acute
[2018-06-16 05:10] LABS: HEMOGLOBIN 8.9 g/dL (12.0-16.0); LYMPH # 0.5 (1.2-3.4); LYMPH % 5.7 % (22.0-35.0); MEAN CELL VOLUME 92.3 fl (80.0-105.0); MEAN CORPUSCULAR HGB CONC 32.5 g/dl (31.0-37.0); MEAN PLATELET VOLUME 10.3 fl (7.0-11.0); MONO # 0.4 (0.1-0.6); MONO % 4.5 % (1.0-6.0); RBC 2.97 10^6/uL (3.5-6.1); RED CELL DISTRIBUTION WIDTH 17.7 % (11.5-14.5); WHITE BLOOD COUNT 8.7 10^3/uL (4.5-11.0)
[2018-06-16] MEDS: metroNIDAZOLE IV 500 mg/100 ml 500 MG/100 ML BAG IVPB SCH ×3 (05:24→21:44)
[2018-06-16] MEDS: DOBUTamine 500mg/250ml D5W 500 MG/250 ML BAG IV PRN (05:25)
[2018-06-16 07:02] LABS: ALBUMIN 3.3 g/dL (3.0-4.8); BILIRUBIN,DIRECT 1.3 mg/dL (0.0-0.4); CALCIUM 8.1 mg/dL (8.4-10.5); TROPONIN I 0.82 ng/mL
[2018-06-16] MEDS: Multivitamin Vitamin B Complex (Nephro-Vite) Tab PO SCH (08:35)
[2018-06-16] MEDS: Insulin Reg-LOW-Coverage SC SCH ×3 (08:38→22:04)
--- NOTE | 2018-06-16 12:11 | CP.PCM.PN ---
<Brandin Plummer - Last Filed: 06/16/18 12:08> Subjective - Date & Time of Evaluation Date of Evaluation: 06/16/18 Time of Evaluation: 12:08 - Subjective Subjective: Podiatry progress note - Drs. Holt/Felicitas 67F seen and evaluated at bedside in ICU with Dr. Holt. Patient is awake and communicating during visit. Patient not able to relay history or current complaints. Nurse states she has been talking all night and singing and did not get any sleep overnight. Objective - Vital Signs/Intake and Output Vital Signs (last 24 hours): Temp Pulse Resp BP Pulse Ox 97.5 F L 60 22 95/35 L 99 06/16/18 04:00 06/16/18 06:10 06/16/18 06:10 06/16/18 11:24 06/16/18 06:10 Intake and Output: 06/16/18 06/16/18 06:59 18:59 Intake Total 658 Output Total 0 Balance 658 - Medications Medications: Current Medications Acetaminophen (Tylenol 325mg Tab) 650 mg PO Q6 PRN PRN Reason: TEMP>=99.5F Last Admin: 06/11/18 12:02 Dose: 650 mg Acetaminophen (Tylenol 650 Mg Supp) 650 mg RC Q6H PRN PRN Reason: TEMP>=99.5F Acetaminophen (Tylenol 650 Mg Supp) 650 mg RC Q6H PRN PRN Reason: Headache Acetaminophen (Tylenol 325mg Tab) 650 mg PO Q6 PRN PRN Reason: Headache Last Admin: 06/12/18 00:58 Dose: 650 mg Atorvastatin Calcium (Lipitor) 80 mg PO HS [facility] Last Admin: 06/15/18 21:59 Dose: Not Given Cinacalcet (Sensipar) 30 mg PO DIN [facility] Last Admin: 06/15/18 18:16 Dose: Not Given Docusate Sodium (Colace) 100 mg PO TID [facility] Last Admin: 06/15/18 18:15 Dose: Not Given Heparin Sodium (Porcine) (Heparin) 5,000 units SC Q8 [facility]; Protocol Last Admin: 06/16/18 05:23 Dose: 5,000 units Hydrocortisone Sodium Succinate (Solu-Cortef) 25 mg IVP Q6H [facility] Dopamine HCl/Dextrose (Dopamine 400mg/250ml D5w) 400 mg in 250 mls @ 16.074 mls/hr IV .[id number] PRN; Protocol PRN Reason: TITRATE TO KEEP SBP>=100 MMHG NOREPINEPHRINE BIT/0.9 % NACL (Levophed 4 Mg/ 250 Ml Ns Premixed) 4 mg in 250 mls @ 15 mls/hr IV .[id number] PRN; Protocol PRN Reason: TITRATE PER MD ORDER Last Admin: 06/15/18 05:06 Dose: 4 mcg/min, 15 mls/hr Vasopressin 20 units/ Sodium (Chloride) 101 mls @ 9.09 mls/hr IV .[id number] [facility]; Protocol Last Admin: 06/16/18 11:24 Dose: 9.09 mls/hr Daptomycin 510 mg/ Sodium (Chloride) 100 mls @ 200 mls/hr IV QOTHERDAY [facility] Stop: 06/17/18 16:01 Last Admin: 06/14/18 11:55 Dose: 200 mls/hr Dobutamine HCl/Dextrose (Dobutamine/Dextrose 5% 500mg/250ml) 500 mg in 250 mls @ 5.144 mls/hr IV .Q24H PRN; Protocol PRN Reason: TITRATE PER PROTOCOL Last Admin: 06/16/18 05:25 Dose: 4 mcg/kg/min, 10.287 mls/hr Dexmedetomidine HCl (Precedex 400mcg/100ml) 400 mcg in 100 mls @ 4.286 mls/hr IV .[id number] PRN; Protocol PRN Reason: Agitation Last Admin: 06/15/18 10:01 Dose: 0.21 mcg/kg/hr, 4.7 mls/hr Metronidazole (Flagyl) 500 mg in 100 mls @ 100 mls/hr IVPB Q8 [facility]; Protocol Stop: 06/19/18 14:00 Last Admin: 06/16/18 05:24 Dose: 100 mls/hr Insulin Human Regular (Humulin R Low) 0 units SC ACHS [facility]; Protocol Last Admin: 06/16/18 08:39 Dose: 2 unit Levothyroxine Sodium (Synthroid) 12.5 mcg IVP DAILY [facility] Last Admin: 06/15/18 09:52 Dose: 12.5 mcg Lorazepam (Ativan) 2 mg IVP ONCE PRN; Protocol PRN Reason: Agitation Last Admin: 06/12/18 19:56 Dose: 2 mg Midodrine (Proamatine) 2.5 mg PO TID [facility] Last Admin: 06/15/18 18:17 Dose: Not Given Mupirocin (Bactroban Ointment) 0 gm TOP BID [facility] Last Admin: 06/15/18 18:07 Dose: 1 cm2 Ondansetron HCl (Zofran Inj) 4 mg IVP Q4H PRN PRN Reason: Nausea/Vomiting Pantoprazole Sodium (Protonix Ec Tab) 40 mg PO 0600 [facility] Last Admin: 06/14/18 05:38 Dose: Not Given Pantoprazole Sodium (Protonix Inj) 40 mg IVP Q12 [facility] Last Admin: 06/15/18 22:00 Dose: 40 mg Sennosides (Senokot Tab) 17.2 mg PO HS [facility] Last Admin: 06/15/18 22:00 Dose: Not Given Sevelamer HCl (Renagel) 800 mg PO TID [facility] Last Admin: 06/15/18 18:17 Dose: Not Given Silver Sulfadiazine (Silvadene 1% 25 Gm) 1 gm TP DAILY [facility] Last Admin: 06/15/18 10:00 Dose: 1 gm Sodium Bicarbonate (Sodium Bicarbonate 8.4% (50 Meq) Syringe) 50 meq IVP ONCE PRN PRN Reason: Other Vitamin B Complex/Vit C/Folic Acid (Nephro-Jose Miguel) 1 tab PO DAILY [facility] Last Admin: 06/15/18 10:00 Dose: Not Given - Labs Labs: 06/16/18 04:10 06/16/18 04:10 PT 18.8 SECONDS (9.4-12.5) H 06/13/18 13:00 INR 1.66 06/13/18 13:00 APTT 137.8 Seconds (26.9-38.3) H* 06/13/18 13:00 - Constitutional Appears: Non-toxic - Head Exam Head Exam: NORMOCEPHALIC - Extremities Exam Additional comments: VASC: DP and PT pulses nonpalpable. CFT <3 seconds to digits. Temperature gradient cool to cool. +1 pitting edema present b/l. NEURO: Light touch and protective sensation absent bilaterally. DERM: RLE=Partial thickness wound noted to dorsum of right hallux measuring approximately 0.5 x 0.5 x 0.1 cm 0 ulcer noted to have a mixed fibrogranular base and hyperkeratosis periwound; no drainage; no purulence; no fluctuance; no undermining; no tunneling; no ascending cellulitis; no malodor. Fifth digit web scape laceration with active bleeding. LLE=Partial thickness ulcerations noted to anteromedial ankle joint; wounds noted to have a mixed fibrogranular base and hyperkeratosis periwound; no periwound erythema; no purulence; no drainage; no fluctuance; no malodor. ORTHO: Pain on palpation distal tuft of right hallux. Pain upon right hallucal IPJ and 1st MPJ ROM. No pain on palpation to LLE wounds. 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 - Neurological Exam Neurological Exam: Alert, Awake - Psychiatric Exam Psychiatric exam: Normal Affect, Normal Mood Assessment and Plan - Assessment and Plan (Free Text) Assessment: 67F with 1) bilateral lower extremity wounds, stable 2) right hallux pain, 3) right fifth digit laceration Plan: Patient seen and evaluated with Dr. Holt Afebrile, WBC 8.7 PTT 137.8 (06/13) Right foot XR - gross degenerative joint disease 1st MPJ, diffuse osteopenia, old healed fx 1st and 2nd mets, posttraumatic atrophy throughout the right 5th digit and 5th met bone Wounds cleansed with saline and dressed with xeroform and DSD, left foot wounds dressed with optifoam Laceration cleansed with alcohol, dressed with xeroform and DSD Wound cx - staph epidermidis New wound cx from laceration site - (prelim) no growth Pain control per medicine PT/OT consulted Podiatry will continue to follow <Alex Holt - Last Filed: 06/16/18 19:10> Objective - Vital Signs/Intake and Output Vital Signs (last 24 hours): Temp Pulse Resp BP Pulse Ox 98.8 F 66 22 95/35 L 99 06/16/18 16:53 06/16/18 12:00 06/16/18 06:10 06/16/18 11:24 06/16/18 06:10 Intake and Output: 06/16/18 06/17/18 18:59 06:59 Intake Total 100 Balance 100 - Medications Medications: Current Medications Acetaminophen (Tylenol 325mg Tab) 650 mg PO Q6 PRN PRN Reason: TEMP>=99.5F Last Admin: 06/11/18 12:02 Dose: 650 mg Acetaminophen (Tylenol 650 Mg Supp) 650 mg RC Q6H PRN PRN Reason: TEMP>=99.5F Acetaminophen (Tylenol 650 Mg Supp) 650 mg RC Q6H PRN PRN Reason: Headache Acetaminophen (Tylenol 325mg Tab) 650 mg PO Q6 PRN PRN Reason: Headache Last Admin: 06/16/18 16:53 Dose: 650 mg Atorvastatin Calcium (Lipitor) 80 mg PO HS [facility] Last Admin: 06/15/18 21:59 Dose: Not Given Cinacalcet (Sensipar) 30 mg PO DIN [facility] Last Admin: 06/16/18 16:51 Dose: 30 mg Docusate Sodium (Colace) 100 mg PO TID [facility] Last Admin: 06/16/18 17:04 Dose: 100 mg Fentanyl (Duragesic) 1 patch TD Q72H [facility] Last Admin: 06/16/18 18:23 Dose: Not Given Heparin Sodium (Porcine) (Heparin) 5,000 units SC Q8 [facility]; Protocol Last Admin: 06/16/18 18:28 Dose: 5,000 units Hydrocortisone Sodium Succinate (Solu-Cortef) 25 mg IVP Q6H [facility] Last Admin: 06/16/18 18:37 Dose: 25 mg Dopamine HCl/Dextrose (Dopamine 400mg/250ml D5w) 400 mg in 250 mls @ 16.074 mls/hr IV .[id number] PRN; Protocol PRN Reason: TITRATE TO KEEP SBP>=100 MMHG NOREPINEPHRINE BIT/0.9 % NACL (Levophed 4 Mg/ 250 Ml Ns Premixed) 4 mg in 250 mls @ 15 mls/hr IV .[id number] PRN; Protocol PRN Reason: TITRATE PER MD ORDER Last Admin: 06/15/18 05:06 Dose: 4 mcg/min, 15 mls/hr Vasopressin 20 units/ Sodium (Chloride) 101 mls @ 9.09 mls/hr IV .Q11H7M [facility]; Protocol Last Admin: 06/16/18 11:24 Dose: 9.09 mls/hr Daptomycin 510 mg/ Sodium (Chloride) 100 mls @ 200 mls/hr IV QOTHERDAY [facility] Stop: 06/17/18 16:01 Last Admin: 06/16/18 18:22 Dose: 200 mls/hr Dobutamine HCl/Dextrose (Dobutamine/Dextrose 5% 500mg/250ml) 500 mg in 250 mls @ 5.144 mls/hr IV .Q24H PRN; Protocol PRN Reason: TITRATE PER PROTOCOL Last Admin: 06/16/18 05:25 Dose: 4 mcg/kg/min, 10.287 mls/hr Dexmedetomidine HCl (Precedex 400mcg/100ml) 400 mcg in 100 mls @ 4.286 mls/hr IV .[id number] PRN; Protocol PRN Reason: Agitation Last Titration: 06/16/18 09:30 Dose: Infused Metronidazole (Flagyl) 500 mg in 100 mls @ 100 mls/hr IVPB Q8 [facility]; Protocol Stop: 06/19/18 14:00 Last Admin: 06/16/18 18:26 Dose: 100 mls/hr Aztreonam (Azactam 1 Gm) 100 mls @ 100 mls/hr IVPB Q12 [facility]; Protocol Stop: 06/16/18 22:59 Last Admin: 06/16/18 16:56 Dose: 100 mls/hr Insulin Human Regular (Humulin R Low) 0 units SC ACHS [facility]; Protocol Last Admin: 06/16/18 08:39 Dose: 2 unit Levothyroxine Sodium (Synthroid) 12.5 mcg IVP DAILY [facility] Last Admin: 06/15/18 09:52 Dose: 12.5 mcg Lorazepam (Ativan) 2 mg IVP ONCE PRN; Protocol PRN Reason: Agitation Last Admin: 06/12/18 19:56 Dose: 2 mg Midodrine (Proamatine) 2.5 mg PO TID [facility] Last Admin: 06/16/18 18:31 Dose: 2.5 mg Mupirocin (Bactroban Ointment) 0 gm TOP BID [facility] Last Admin: 06/15/18 18:07 Dose: 1 cm2 Ondansetron HCl (Zofran Inj) 4 mg IVP Q4H PRN PRN Reason: Nausea/Vomiting Pantoprazole Sodium (Protonix Ec Tab) 40 mg PO 0600 [facility] Last Admin: 06/14/18 05:38 Dose: Not Given Pantoprazole Sodium (Protonix Inj) 40 mg IVP Q12 [facility] Last Admin: 06/16/18 10:45 Dose: 40 mg Sennosides (Senokot Tab) 17.2 mg PO HS [facility] Last Admin: 06/15/18 22:00 Dose: Not Given Sevelamer HCl (Renagel) 800 mg PO TID [facility] Last Admin: 06/16/18 18:32 Dose: 800 mg Silver Sulfadiazine (Silvadene 1% 25 Gm) 1 gm TP DAILY [facility] Last Admin: 06/15/18 10:00 Dose: 1 gm Sodium Bicarbonate (Sodium Bicarbonate 8.4% (50 Meq) Syringe) 50 meq IVP ONCE PRN PRN Reason: Other Vitamin B Complex/Vit C/Folic Acid (Nephro-Jose Miguel) 1 tab PO DAILY [facility] Last Admin: 06/16/18 08:35 Dose: 1 tab - Labs Labs: 06/16/18 04:10 06/16/18 04:10 PT 18.8 SECONDS (9.4-12.5) H 06/13/18 13:00 INR 1.66 06/13/18 13:00 APTT 137.8 Seconds (26.9-38.3) H* 06/13/18 13:00 Attending/Attestation - Attestation I have personally seen and examined this patient.: Yes I have fully participated in the care of the patient.: Yes I have reviewed all pertinent clinical information, including history, physical exam and plan: Yes
--- NOTE | 2018-06-16 14:41 | PN ---
DATE: 06/16/2018 LOCATION: The patient is seen in ICU, bed 5. SUBJECTIVE: The patient is lying in the bed. The patient is in the process of getting ready for dialysis. Today, the patient is completely alert, awake, oriented, responsive, answers simple and complicated questions with correct answers, the patient follows simple command. The patient was seen and examined lying in the bed. PHYSICAL EXAMINATION: VITAL SIGNS: T-max afebrile. Telemetry shows heart rate 60s, telemetry monitoring shows sinus rhythm with intermittent ventricular paced rhythm. Blood pressure 121/53, respiration is 22 to 23, O2 sat 98% to 99%. HEENT: Head is normocephalic and atraumatic. HEENT examination shows positive right-sided internal jugular triple-lumen. Pinkish pale conjunctivae, anicteric sclerae. No oropharyngeal lesion. NECK: No neck rigidity. CHEST: Kyphosis. LUNGS: Shows positive upper lung field rhonchi. CARDIOVASCULAR: S1 and S2, regular rhythm. Questionable soft systolic murmur in left sternal border, right second intercostal space, left second intercostal space. ABDOMEN: Soft. Positive bowel sounds. Protuberant abdomen. No palpable hepatosplenomegaly. GENITALIA: Female. RECTAL: Deferred. EXTREMITIES: Shows positives SCDs. MUSCULOSKELETAL: Shows a body mass index elevated. GAIT: Not tested. DIAGNOSTICS: From 06/16/2018, WBC 8.7, hemoglobin and hematocrit 8.9 and 27.4, platelet count is 71,000, granulocytes 90% segs. ABG, none from today. Sodium 138, potassium 4.3, chloride 102, CO2 of 22, anion gap 18, BUN 48, creatinine 5.8, GFR 7, and glucose 229. Calcium 8.1, phosphorus 5.0, magnesium 2.4, total bilirubin 1.4, direct bilirubin 1.3, AST 53. Troponin is now down to 0.82 from a peak troponin of 0.94. Repeat blood cultures are negative. Blood cultures from 06/12/2018, coagulase-negative Staphylococcus; foot cultures, Staphylococcus epidermidis. The patient received 1 unit of PRBC. IMPRESSION AND PLAN: 1. Acute cardiogenic and septic shock with refractory inotrope pressor dependent hypotension. 2. Status post rapid response. 3. Thrombocytopenia. 4. Questionable and possible disseminated intravenous coagulation. 5. Anemia and anemia of chronic kidney disease. 6. Questionable iatrogenic coagulopathy. 7. Lytic bony lesion, etiology undetermined. 8. Right breast and right anterior chest wall cellulitis versus peau d'orange. 9. Inotrope pressor dependent hypotension. 10. Tachycardia. 11. Leukocytosis with granulocytosis. 12. Anemia. 13. Thrombocytopenia. 14. Status post packed red blood cell transfusion. 15. Elevated erythrocyte sedimentation rate of 38 and elevated reticulocyte count of 1.74. 16. Increased anion gap metabolic acidosis and lactic acidosis. 17. Hypoxemia. 18. End-stage renal disease, hemodialysis dependent. 19. Non-hemolyzed hyperkalemia. 20. Uncontrolled diabetes mellitus with hyperfructosemia. 21. Acute non-ST elevation myocardial infraction with elevated troponin. 22. Hyperbilirubinemia. 23. Hyperglycemia. 24. Hypovitaminosis D. 25. Hypothyroidism. 26. Diabetic hypertensive chronic kidney disease. 28. Secondary hyperparathyroidism with hyperphosphatemia. 29. Right breast cellulitis versus peau d'orange. 30. Severe right ventricular dysfunction with severely dilated right ventricle and moderately reduced right ventricular systolic function. 31. Concentric left ventricular hypertrophy. 32. Grade 2 pseudonormal filling dynamics. 33. Trace aortic regurgitation. 34. Mitral annular calcification. 35. Dycvyfei-wo-lbmvjo mitral regurgitation. 36. Severe tricuspid regurgitation. 37. Questionable upper gastrointestinal bleeding. 38. Hypertension. 39. Right-sided diastolic heart failure. 40. Coagulase-negative Staphylococcus aureus bacteremia. 41. Left foot Staphylococcus epidermidis diabetic ulceration. 42. Diffuse cerebral cortical atrophy of the brain and chronic microangiopathy. 43. Chronic bilateral basal ganglia lacunar infarct. 44. Calvarial lucencies questionable multiple myeloma versus metastasis. 45. White matter ischemic disease of the brain of the subcortical white matter and bilateral basal nuclear lacunar infarct. 46. Generalized cerebral cortical atrophy of the brain. 47. Calvarial lucencies with sclerotic lesion of the outer table of the left parietal calvarium. 48. Status post bilateral cataract surgery. 49. End-stage renal disease, hemodialysis dependent. 50. Coronary artery disease, coronary artery bypass graft. 51. Status post permeant pacemaker implant. 52. Right bundle-branch block. 53. Paroxysmal atrial fibrillation, junctional escape rhythm. 54. Coagulase-negative Staphylococcus aureus bacteremia. 55. Status post hematemesis. 56. Possible stress gastritis. 57. Constipation. 58. Hyperlipidemia. 59. Hypotension. 60. Secondary hyperparathyroidism. 61. Moderate oropharyngeal dysphagia with high to moderate risk for aspiration. PLAN: At this time; the patient has been ordered serial labs. Consultation Cardiology, Gastroenterology, Hematology/Oncology, Infectious Disease, Nephrology, and Podiatry. The patient will be continued in ICU until the patient is completely off the pressors and inotropes and the patient's hemodynamics and subjective and objective data is stable. CURRENT MEDICATIONS: Azactam 500 mg IV every 12 hours, Bactroban cream, Colace 100 mg three times a day, daptomycin mg every other day, Precedex, dobutamine drip, Flagyl 500 mg IV every 8 hours, heparin 5000 subcutaneous every 8 hours, regular insulin sliding scale coverage a.c. and at bedtime, Lipitor 80 mg daily, Nephro-Jose Miguel 1 tablet daily, Levophed drip, midodrine 2.5 mg three times a day, Protonix 40 mg IV every 12 hours, Renagel 800 mg three times a day, Senokot mg at bedtime, Sensipar 30 mg daily, Silvadene cream to the effected area, Synthroid 12.5 mcg IV daily, Tylenol p.r.n., the patient is on vasopressin, and Zofran 4 mg IV every 4 hours p.r.n. Breast ultrasound ordered. Time spent in the entire process more than 35 minutes. Dictated and electronically signed, not read. Jimy Simeon MD
--- NOTE | 2018-06-16 14:58 | CP.PCM.PN ---
Subjective - Date & Time of Evaluation Date of Evaluation: 06/16/18 Time of Evaluation: 14:57 - Subjective Subjective: Nephrology Consultation Note Assessment: critical Shock ? cardiogenic/septic (GPC) Diabetic chronic Kidney Disease (E11.22) Hypertensive Chronic Kidney Disease (I12.0) End stage renal disease (N18.6) dependence on hemodialysis (Z99.2) (TTS) via AVF Anemia (D64.9), Hyperphosphatemia (E83.39), Secondary Hyperparathyroidism (E21.1), HTN (I12.0) CAD s/p CABG obesity thrombocytopenia Lytic lesions ? underlying malignancy breast cellulitis versus malignancy lactic acidosis, GI bleed RV dysfunction, moderate to severe MR Plan: had HD today. Will plan for next dialysis tomorrow per TTS schedule. Continue with Nephrovite 1 tab/day. PRBC as needed for anemia. defer further ADAM as concerns with malignancy. Hb 8.9 heme/onc following hold phos binders due to AMS, last phos level 5.6 PTH 547 pt started on pressors. maintain hemodynamic stable Glycemic control, Dialysis consistent diet Further work up/management as per primary team Dose meds/antibiotics (if needed) for ESRD status. Avoid fleets enema/magnesium based laxatives. ID following Thanks for allowing me to participate in care of your patient. Will follow patient with you. Please call if any Qs. had d/w team Dr Amrit Malone Office: [phone] Subjective: Noted events overnight. feels well. no complaints. appears much better. talkative a lot. c/o chronic back pain Physical Examination: General Appearance: in no acute respiratory distress, better appearing Vitals reviewed and noted as below Head; Atraumatic, normocephalic ENT: no ulcers no thrush. Tongue is midline/dry. Oropharynx: no rash or ulcers. Neck; supple no lymphadenopathy, no thyromegaly or bruit Lungs: Normal respiratory rate/effort. Breath sounds bilateral equal and clear Heart: Normal rate. s1s2 normal. No rub or gallop. Extremities: no edema. No varicose veins Neurological: Patient is AMS status. mostly non communicative but more responsive Skin: Warm and dry. Normal turgor. No rash. Palpitation: Normal elasticity for age Abdomen: Abdomen is soft. Bowel sounds +. There is no abdominal tenderness, no guarding/rigidity or organomegaly Psych: limited insight. MSK: no joint tenderness or swelling. Digits and nails normal, no deformity : kidney or bladder not palpable Access: AVF 06/12/18: breast examined with RN,Rt breast everardo-areolar swelling fulness ? mass, peau [place] orange appearance Labs/imaging reviewed. Past medical history, past surgical history, family history, social history, allergy reviewed and noted as below Family Hx: no hx of CKD. Non contributory Objective - Vital Signs/Intake and Output Vital Signs (last 24 hours): Temp Pulse Resp BP Pulse Ox 97.6 F 66 22 95/35 L 99 06/16/18 12:00 06/16/18 12:00 06/16/18 06:10 06/16/18 11:24 06/16/18 06:10 Intake and Output: 06/16/18 06/16/18 06:59 18:59 Intake Total 658 Output Total 0 Balance 658 - Medications Medications: Current Medications Acetaminophen (Tylenol 325mg Tab) 650 mg PO Q6 PRN PRN Reason: TEMP>=99.5F Last Admin: 06/11/18 12:02 Dose: 650 mg Acetaminophen (Tylenol 650 Mg Supp) 650 mg RC Q6H PRN PRN Reason: TEMP>=99.5F Acetaminophen (Tylenol 650 Mg Supp) 650 mg RC Q6H PRN PRN Reason: Headache Acetaminophen (Tylenol 325mg Tab) 650 mg PO Q6 PRN PRN Reason: Headache Last Admin: 06/12/18 00:58 Dose: 650 mg Atorvastatin Calcium (Lipitor) 80 mg PO HS [facility] Last Admin: 06/15/18 21:59 Dose: Not Given Cinacalcet (Sensipar) 30 mg PO DIN [facility] Last Admin: 06/15/18 18:16 Dose: Not Given Docusate Sodium (Colace) 100 mg PO TID [facility] Last Admin: 06/15/18 18:15 Dose: Not Given Heparin Sodium (Porcine) (Heparin) 5,000 units SC Q8 [facility]; Protocol Last Admin: 06/16/18 05:23 Dose: 5,000 units Hydrocortisone Sodium Succinate (Solu-Cortef) 25 mg IVP Q6H [facility] Dopamine HCl/Dextrose (Dopamine 400mg/250ml D5w) 400 mg in 250 mls @ 16.074 mls/hr IV .[id number] PRN; Protocol PRN Reason: TITRATE TO KEEP SBP>=100 MMHG NOREPINEPHRINE BIT/0.9 % NACL (Levophed 4 Mg/ 250 Ml Ns Premixed) 4 mg in 250 mls @ 15 mls/hr IV .[id number] PRN; Protocol PRN Reason: TITRATE PER MD ORDER Last Admin: 06/15/18 05:06 Dose: 4 mcg/min, 15 mls/hr Vasopressin 20 units/ Sodium (Chloride) 101 mls @ 9.09 mls/hr IV .[id number] [facility]; Protocol Last Admin: 06/16/18 11:24 Dose: 9.09 mls/hr Daptomycin 510 mg/ Sodium (Chloride) 100 mls @ 200 mls/hr IV QOTHERDAY [facility] Stop: 06/17/18 16:01 Last Admin: 06/14/18 11:55 Dose: 200 mls/hr Dobutamine HCl/Dextrose (Dobutamine/Dextrose 5% 500mg/250ml) 500 mg in 250 mls @ 5.144 mls/hr IV .Q24H PRN; Protocol PRN Reason: TITRATE PER PROTOCOL Last Admin: 06/16/18 05:25 Dose: 4 mcg/kg/min, 10.287 mls/hr Dexmedetomidine HCl (Precedex 400mcg/100ml) 400 mcg in 100 mls @ 4.286 mls/hr IV .[id number] PRN; Protocol PRN Reason: Agitation Last Admin: 06/15/18 10:01 Dose: 0.21 mcg/kg/hr, 4.7 mls/hr Metronidazole (Flagyl) 500 mg in 100 mls @ 100 mls/hr IVPB Q8 [facility]; Protocol Stop: 06/19/18 14:00 Last Admin: 06/16/18 05:24 Dose: 100 mls/hr Aztreonam (Azactam 1 Gm) 100 mls @ 100 mls/hr IVPB Q12 [facility]; Protocol Stop: 06/16/18 22:59 Insulin Human Regular (Humulin R Low) 0 units SC ACHS [facility]; Protocol Last Admin: 06/16/18 08:39 Dose: 2 unit Levothyroxine Sodium (Synthroid) 12.5 mcg IVP DAILY [facility] Last Admin: 06/15/18 09:52 Dose: 12.5 mcg Lorazepam (Ativan) 2 mg IVP ONCE PRN; Protocol PRN Reason: Agitation Last Admin: 06/12/18 19:56 Dose: 2 mg Midodrine (Proamatine) 2.5 mg PO TID [facility] Last Admin: 06/15/18 18:17 Dose: Not Given Mupirocin (Bactroban Ointment) 0 gm TOP BID [facility] Last Admin: 06/15/18 18:07 Dose: 1 cm2 Ondansetron HCl (Zofran Inj) 4 mg IVP Q4H PRN PRN Reason: Nausea/Vomiting Pantoprazole Sodium (Protonix Ec Tab) 40 mg PO 0600 [facility] Last Admin: 06/14/18 05:38 Dose: Not Given Pantoprazole Sodium (Protonix Inj) 40 mg IVP Q12 [facility] Last Admin: 06/15/18 22:00 Dose: 40 mg Sennosides (Senokot Tab) 17.2 mg PO HS [facility] Last Admin: 06/15/18 22:00 Dose: Not Given Sevelamer HCl (Renagel) 800 mg PO TID [facility] Last Admin: 06/15/18 18:17 Dose: Not Given Silver Sulfadiazine (Silvadene 1% 25 Gm) 1 gm TP DAILY [facility] Last Admin: 06/15/18 10:00 Dose: 1 gm Sodium Bicarbonate (Sodium Bicarbonate 8.4% (50 Meq) Syringe) 50 meq IVP ONCE P RN PRN Reason: Other Vitamin B Complex/Vit C/Folic Acid (Nephro-Jose Miguel) 1 tab PO DAILY [facility] Last Admin: 06/15/18 10:00 Dose: Not Given - Labs Labs: 06/16/18 04:10 06/16/18 04:10 PT 18.8 SECONDS (9.4-12.5) H 06/13/18 13:00 INR 1.66 06/13/18 13:00 APTT 137.8 Seconds (26.9-38.3) H* 06/13/18 13:00
--- NOTE | 2018-06-16 15:05 | CP.CCUPN ---
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 (Auto) Baso % (Auto) Lymph # (Auto) [place] # (Auto) Eos # (Auto) Baso # (Auto) Absolute Neuts (auto) Sodium Potassium Chloride Carbon Dioxide Anion Gap BUN Creatinine Est GFR ( Amer) Est GFR (Non-Af Amer) POC Glucose (mg/dL) 173 H Random Glucose Lactic Acid Calcium Phosphorus Magnesium Total Bilirubin Direct Bilirubin AST ALT Alkaline Phosphatase Troponin I Total Protein Albumin Globulin Albumin/Globulin Ratio Radiology Impressions: Radiology Impressions Lung Scan Nuclear Medicine 06/15/18 08:13 IMPRESSION: Lowprobability ventilation perfusion scan for pulmonary embolism. Chest X-Ray 06/15/18 13:19 IMPRESSION: Cardiomegaly and borderline pulmonary vascular congestion evident. No acute airspace disease. Elevated right hemidiaphragm unchanged. Critical Care Progress Note - Nutrition Nutrition: Nutrition Category Date Time Status Pureed [Dysphagia/Modified Consistency Diet] [DIET] Diets 06/16/18 Breakfast Ordered Assessment/Plan - Assessment and Plan (Free Text) Assessment: Patient seen and examined on rounds, with resident, agree with note with following additions/exceptions: Patient is 67yo female with PMHx AD s/p CABG and 5 stents, ESRD on HD T//, HTN, hypothyroidism and DM admitted to MICU with obstructive shock, severely dilated RV on pressor support, currently only on Dobutamine 4mcg, doing well. AAOx3, NAD tolerated HD today, 1.5L removed. Cardiology following. V/Q scan negative for PE Right heart failure Dilakted RV ESRD on HD CAD s/p CABG HTN HYpothyroidism DM Recommend: - supp o2 as needed, duonebs PRN, BIPAP at night - ABx as per ID - Cont with Dobutamine - HD as per renal - FS control - DC vasopressin - Follow up GI - monitor HH - GI ppx - DVT ppx, SCDs - Monitor in MICU Crtical care time 30 minutes
--- NOTE | 2018-06-16 15:18 | CP.PCM.PN ---
Subjective - Date & Time of Evaluation Date of Evaluation: 06/16/18 Time of Evaluation: 14:20 - Subjective Subjective: Patient is now much more awake, no fevers, not in distress. No nausea, no SOB at rest. Objective - Vital Signs/Intake and Output Vital Signs (last 24 hours): Temp Pulse Resp BP Pulse Ox 97.7 F 60 21 92/35 L 98 06/15/18 09:00 06/15/18 12:10 06/15/18 10:30 06/15/18 10:30 06/15/18 12:10 Intake and Output: 06/15/18 06/15/18 06:59 18:59 Intake Total 810 40 Output Total 0 Balance 810 40 - Medications Medications: Current Medications Acetaminophen (Tylenol 325mg Tab) 650 mg PO Q6 PRN PRN Reason: TEMP>=99.5F Last Admin: 06/11/18 12:02 Dose: 650 mg Acetaminophen (Tylenol 650 Mg Supp) 650 mg RC Q6H PRN PRN Reason: TEMP>=99.5F Acetaminophen (Tylenol 650 Mg Supp) 650 mg RC Q6H PRN PRN Reason: Headache Acetaminophen (Tylenol 325mg Tab) 650 mg PO Q6 PRN PRN Reason: Headache Last Admin: 06/12/18 00:58 Dose: 650 mg Atorvastatin Calcium (Lipitor) 80 mg PO HS [facility] Last Admin: 06/14/18 22:07 Dose: Not Given Cinacalcet (Sensipar) 30 mg PO DIN [facility] Last Admin: 06/14/18 18:03 Dose: Not Given Docusate Sodium (Colace) 100 mg PO TID [facility] Last Admin: 06/14/18 13:40 Dose: Not Given Heparin Sodium (Porcine) (Heparin) 5,000 units SC Q8 [facility]; Protocol Last Admin: 06/15/18 06:23 Dose: 5,000 units Hydrocortisone Sodium Succinate (Solu-Cortef) 50 mg IVP Q6H [facility] Last Admin: 06/15/18 06:23 Dose: 50 mg Aztreonam 500 mg/ Sodium (Chloride) 100 mls @ 100 mls/hr IVPB Q12H [facility]; Protocol Stop: 06/21/18 11:01 Last Admin: 06/15/18 10:01 Dose: 100 mls/hr Dopamine HCl/Dextrose (Dopamine 400mg/250ml D5w) 400 mg in 250 mls @ 16.074 mls/hr IV .[id number] PRN; Protocol PRN Reason: TITRATE TO KEEP SBP>=100 MMHG NOREPINEPHRINE BIT/0.9 % NACL (Levophed 4 Mg/ 250 Ml Ns Premixed) 4 mg in 250 mls @ 15 mls/hr IV .[id number] PRN; Protocol PRN Reason: TITRATE PER MD ORDER Last Admin: 06/15/18 05:06 Dose: 4 mcg/min, 15 mls/hr Vasopressin 20 units/ Sodium (Chloride) 101 mls @ 9.09 mls/hr IV .[id number] [facility]; Protocol Last Admin: 06/15/18 09:53 Dose: 9.09 mls/hr Daptomycin 510 mg/ Sodium (Chloride) 100 mls @ 200 mls/hr IV QOTHERDAY [facility] Stop: 06/17/18 16:01 Last Admin: 06/14/18 11:55 Dose: 200 mls/hr Dobutamine HCl/Dextrose (Dobutamine/Dextrose 5% 500mg/250ml) 500 mg in 250 mls @ 5.144 mls/hr IV .Q24H PRN; Protocol PRN Reason: TITRATE PER PROTOCOL Last Titration: 06/14/18 08:18 Dose: 4 mcg/kg/min, 10.287 mls/hr Dexmedetomidine HCl (Precedex 400mcg/100ml) 400 mcg in 100 mls @ 4.286 mls/hr IV .[id number] PRN; Protocol PRN Reason: Agitation Last Admin: 06/15/18 10:01 Dose: 0.21 mcg/kg/hr, 4.7 mls/hr Metronidazole (Flagyl) 500 mg in 100 mls @ 100 mls/hr IVPB Q8 [facility]; Protocol Stop: 06/19/18 14:00 Last Admin: 06/15/18 06:22 Dose: 100 mls/hr Insulin Human Regular (Humulin R Low) 0 units SC ACHS [facility]; Protocol Last Admin: 06/15/18 08:49 Dose: 1 unit Levothyroxine Sodium (Synthroid) 12.5 mcg IVP DAILY [facility] Last Admin: 06/15/18 09:52 Dose: 12.5 mcg Lorazepam (Ativan) 2 mg IVP ONCE PRN; Protocol PRN Reason: Agitation Last Admin: 06/12/18 19:56 Dose: 2 mg Midodrine (Proamatine) 2.5 mg PO TID [facility] Last Admin: 06/14/18 18:02 Dose: Not Given Mupirocin (Bactroban Ointment) 0 gm TOP BID [facility] Ondansetron HCl (Zofran Inj) 4 mg IVP Q4H PRN PRN Reason: Nausea/Vomiting Pantoprazole Sodium (Protonix Ec Tab) 40 mg PO 0600 [facility] Last Admin: 06/14/18 05:38 Dose: Not Given Pantoprazole Sodium (Protonix Inj) 40 mg IVP Q12 [facility] Last Admin: 06/15/18 09:47 Dose: 40 mg Sennosides (Senokot Tab) 17.2 mg PO HS [facility] Last Admin: 06/14/18 22:08 Dose: Not Given Sevelamer HCl (Renagel) 800 mg PO TID [facility] Last Admin: 06/14/18 19:47 Dose: Not Given Silver Sulfadiazine (Silvadene 1% 25 Gm) 1 gm TP DAILY [facility] Sodium Bicarbonate (Sodium Bicarbonate 8.4% (50 Meq) Syringe) 50 meq IVP ONCE PRN PRN Reason: Other Vitamin B Complex/Vit C/Folic Acid (Nephro-Jose Miguel) 1 tab PO DAILY [facility] Last Admin: 06/14/18 09:00 Dose: Not Given - Labs Labs: 06/15/18 07:25 06/15/18 07:25 PT 18.8 SECONDS (9.4-12.5) H 06/13/18 13:00 INR 1.66 06/13/18 13:00 APTT 137.8 Seconds (26.9-38.3) H* 06/13/18 13:00 - Constitutional Appears: Chronically Ill - Head Exam Head Exam: NORMAL INSPECTION - Neck Exam Neck Exam: absent: Meningismus Additional comments: right IJ TLC in place - Respiratory Exam Respiratory Exam: Decreased Breath Sounds - Cardiovascular Exam Cardiovascular Exam: +S1, +S2 - GI/Abdominal Exam GI & Abdominal Exam: Soft. absent: Tenderness Assessment and Plan - Assessment and Plan (Free Text) Plan: Assessment S/P Hypotension, consider due to right sided heart failure, consider GI bleeding coagulase negative staph bacteremia, source not clear right breast cellulitis obesity with BMI 31 ESRD on HD hypothyroidism DM dyslipidemia CAD S/P CABG S/P foot surgery Plan continue Azactam, Flagyl, and Daptomycin day 6 ; blood cx showing CoNS from 06/12 - source is not clear, 2D echo on 06/12 was not specific for vegetations, repeat blood cx negative discussed with dr. Hall - patient may have right sided heart failure causing hypotension, patient being managed by ICU team will monitor clinically prognosis is guarded follow up further ICU work up for possible GI bleeding
--- NOTE | 2018-06-16 15:59 | CP.PCM.PCO ---
Physician Communication Note - Physician Communication Note Physician Communication Note: patient awake,more alert today,remains on Dobutamine,Levophed,Vasopress gtt
[2018-06-16] MEDS: Aztreonam 1 Gm in NS 100mL 100 ML IVPB SCH ×2 (16:56→21:43)
[2018-06-16] MEDS: DAPTOmycin 510 MG in Sodium Chloride 0.9% 100 ML IV SCH (18:22)
[2018-06-16] MEDS: Levothyroxine 100 mcg (0.1 mg) Inj IVP SCH (19:23)
--- NOTE | 2018-06-16 21:18 | CP.PCM.PN ---
Subjective - Date & Time of Evaluation Date of Evaluation: 06/16/18 Time of Evaluation: 17:00 - Subjective Subjective: Appears comfortable, more alert Objective - Vital Signs/Intake and Output Vital Signs (last 24 hours): Temp Pulse Resp BP Pulse Ox 98.8 F 96 H 32 H 104/65 93 L 06/16/18 16:53 06/16/18 20:00 06/16/18 20:00 06/16/18 20:00 06/16/18 20:00 Intake and Output: 06/16/18 06/17/18 18:59 06:59 Intake Total 1269 Output Total 0 Balance 1269 - Medications Medications: Current Medications Acetaminophen (Tylenol 325mg Tab) 650 mg PO Q6 PRN PRN Reason: TEMP>=99.5F Last Admin: 06/11/18 12:02 Dose: 650 mg Acetaminophen (Tylenol 650 Mg Supp) 650 mg RC Q6H PRN PRN Reason: TEMP>=99.5F Acetaminophen (Tylenol 650 Mg Supp) 650 mg RC Q6H PRN PRN Reason: Headache Acetaminophen (Tylenol 325mg Tab) 650 mg PO Q6 PRN PRN Reason: Headache Last Admin: 06/16/18 16:53 Dose: 650 mg Atorvastatin Calcium (Lipitor) 80 mg PO HS [facility] Last Admin: 06/15/18 21:59 Dose: Not Given Cinacalcet (Sensipar) 30 mg PO DIN [facility] Last Admin: 06/16/18 16:51 Dose: 30 mg Docusate Sodium (Colace) 100 mg PO TID [facility] Last Admin: 06/16/18 17:04 Dose: 100 mg Fentanyl (Duragesic) 1 patch TD Q72H [facility] Last Admin: 06/16/18 18:23 Dose: Not Given Heparin Sodium (Porcine) (Heparin) 5,000 units SC Q8 [facility]; Protocol Last Admin: 06/16/18 18:28 Dose: 5,000 units Hydrocortisone Sodium Succinate (Solu-Cortef) 25 mg IVP Q6H [facility] Last Admin: 06/16/18 18:37 Dose: 25 mg Dopamine HCl/Dextrose (Dopamine 400mg/250ml D5w) 400 mg in 250 mls @ 16.074 mls/hr IV .[id number] PRN; Protocol PRN Reason: TITRATE TO KEEP SBP>=100 MMHG NOREPINEPHRINE BIT/0.9 % NACL (Levophed 4 Mg/ 250 Ml Ns Premixed) 4 mg in 250 mls @ 15 mls/hr IV .[id number] PRN; Protocol PRN Reason: TITRATE PER MD ORDER Last Admin: 06/15/18 05:06 Dose: 4 mcg/min, 15 mls/hr Vasopressin 20 units/ Sodium (Chloride) 101 mls @ 9.09 mls/hr IV .Q11H7M [facility]; Protocol Last Admin: 06/16/18 11:24 Dose: 9.09 mls/hr Daptomycin 510 mg/ Sodium (Chloride) 100 mls @ 200 mls/hr IV QOTHERDAY [facility] Stop: 06/17/18 16:01 Last Admin: 06/16/18 18:22 Dose: 200 mls/hr Dobutamine HCl/Dextrose (Dobutamine/Dextrose 5% 500mg/250ml) 500 mg in 250 mls @ 5.144 mls/hr IV .Q24H PRN; Protocol PRN Reason: TITRATE PER PROTOCOL Last Titration: 06/16/18 18:45 Dose: Infused Dexmedetomidine HCl (Precedex 400mcg/100ml) 400 mcg in 100 mls @ 4.286 mls/hr IV .[id number] PRN; Protocol PRN Reason: Agitation Last Titration: 06/16/18 09:30 Dose: Infused Metronidazole (Flagyl) 500 mg in 100 mls @ 100 mls/hr IVPB Q8 [facility]; Protocol Stop: 06/19/18 14:00 Last Admin: 06/16/18 18:26 Dose: 100 mls/hr Aztreonam (Azactam 1 Gm) 100 mls @ 100 mls/hr IVPB Q12 [facility]; Protocol Stop: 06/16/18 22:59 Last Admin: 06/16/18 16:56 Dose: 100 mls/hr Insulin Human Regular (Humulin R Low) 0 units SC ACHS [facility]; Protocol Last Admin: 06/16/18 08:39 Dose: 2 unit Levothyroxine Sodium (Synthroid) 12.5 mcg IVP DAILY [facility] Last Admin: 06/16/18 19:23 Dose: 12.5 mcg Lorazepam (Ativan) 2 mg IVP ONCE PRN; Protocol PRN Reason: Agitation Last Admin: 06/12/18 19:56 Dose: 2 mg Midodrine (Proamatine) 2.5 mg PO TID [facility] Last Admin: 06/16/18 18:31 Dose: 2.5 mg Mupirocin (Bactroban Ointment) 0 gm TOP BID [facility] Last Admin: 06/15/18 18:07 Dose: 1 cm2 Ondansetron HCl (Zofran Inj) 4 mg IVP Q4H PRN PRN Reason: Nausea/Vomiting Pantoprazole Sodium (Protonix Ec Tab) 40 mg PO 0600 [facility] Last Admin: 06/14/18 05:38 Dose: Not Given Pantoprazole Sodium (Protonix Inj) 40 mg IVP Q12 [facility] Last Admin: 06/16/18 10:45 Dose: 40 mg Sennosides (Senokot Tab) 17.2 mg PO HS [facility] Last Admin: 06/15/18 22:00 Dose: Not Given Sevelamer HCl (Renagel) 800 mg PO TID [facility] Last Admin: 06/16/18 18:32 Dose: 800 mg Silver Sulfadiazine (Silvadene 1% 25 Gm) 1 gm TP DAILY [facility] Last Admin: 06/15/18 10:00 Dose: 1 gm Sodium Bicarbonate (Sodium Bicarbonate 8.4% (50 Meq) Syringe) 50 meq IVP ONCE PRN PRN Reason: Other Vitamin B Complex/Vit C/Folic Acid (Nephro-Jose Miguel) 1 tab PO DAILY [facility] Last Admin: 06/16/18 08:35 Dose: 1 tab - Labs Labs: 06/16/18 04:10 06/16/18 04:10 PT 18.8 SECONDS (9.4-12.5) H 06/13/18 13:00 INR 1.66 06/13/18 13:00 APTT 137.8 Seconds (26.9-38.3) H* 06/13/18 13:00 - Head Exam Head Exam: ATRAUMATIC - Eye Exam Eye Exam: Normal appearance - ENT Exam ENT Exam: Mucous Membranes Dry - Respiratory Exam Respiratory Exam: NORMAL BREATHING PATTERN - Cardiovascular Exam Cardiovascular Exam: +S1, +S2 - GI/Abdominal Exam GI & Abdominal Exam: Normal Bowel Sounds Assessment and Plan (1) Thrombocytopenia Assessment & Plan: suspect infection related borderline fibrinogen; likely resolving DIC repeat fibrinogen in AM Status: Acute (2) Anemia Assessment & Plan: chronic disease, CKD transfusion support PRN Status: Acute (3) Coagulopathy Assessment & Plan: nutritional DIC Status: Acute (4) Lytic bone lesions on xray Assessment & Plan: monoclonal protein negative f/u free light chain assay malignancy w/u when more stable - right breast/chest wall edema ?cellulitis ?malignancy Status: Acute
[2018-06-17] MEDS: metroNIDAZOLE IV 500 mg/100 ml 500 MG/100 ML BAG IVPB SCH ×2 (05:18→13:39)
[2018-06-17 06:06] LABS: ALBUMIN 3.7 g/dL (3.0-4.8); BILIRUBIN,DIRECT 1.3 mg/dL (0.0-0.4); CALCIUM 8.2 mg/dL (8.4-10.5)
[2018-06-17 06:10] LABS: HEMOGLOBIN 9.3 g/dL (12.0-16.0); LYMPH # 0.7 (1.2-3.4); LYMPH % 7.4 % (22.0-35.0); MEAN CELL VOLUME 92.2 fl (80.0-105.0); MEAN CORPUSCULAR HEMOGLOBIN 30.4 pg (25.0-35.0); MEAN PLATELET VOLUME 10.1 fl (7.0-11.0); MONO # 0.1 (0.1-0.6); MONO % 1.5 % (1.0-6.0); PLATELET COUNT 76 10^3/uL (120.0-450.0); RBC 3.06 10^6/uL (3.5-6.1); WHITE BLOOD COUNT 9.5 10^3/uL (4.5-11.0)
[2018-06-17] MEDS ORDERED: Vancomycin 2.5 GM in Sodium Chloride 0.9% 500 ML IVPB ONE (06:54)
[2018-06-17 07:00] LABS: TROPONIN I 0.82 ng/mL
--- NOTE | 2018-06-17 08:34 | CP.PCM.PN ---
Subjective - Date & Time of Evaluation Date of Evaluation: 06/17/18 Time of Evaluation: 08:34 - Subjective Subjective: Podiatry progress note: Dr. Holt 67 year old female patient seen and evaluated at bedside in ICU with Dr. Holt. Patient resting comfortably bedside, however unable to obtain history and new pedal complaints from patient at this time, as patient appears to be confused this morning. Per nursing, no acute events overnight. Objective - Vital Signs/Intake and Output Vital Signs (last 24 hours): Temp Pulse Resp BP Pulse Ox 97.6 F 98 H 33 H 133/70 100 06/17/18 04:00 06/17/18 06:40 06/17/18 06:40 06/17/18 06:00 06/17/18 06:40 Intake and Output: 06/17/18 06/17/18 06:59 18:59 Intake Total 600 Output Total 0 Balance 600 - Medications Medications: Current Medications Acetaminophen (Tylenol 325mg Tab) 650 mg PO Q6 PRN PRN Reason: TEMP>=99.5F Last Admin: 06/11/18 12:02 Dose: 650 mg Acetaminophen (Tylenol 650 Mg Supp) 650 mg RC Q6H PRN PRN Reason: TEMP>=99.5F Acetaminophen (Tylenol 650 Mg Supp) 650 mg RC Q6H PRN PRN Reason: Headache Acetaminophen (Tylenol 325mg Tab) 650 mg PO Q6 PRN PRN Reason: Headache Last Admin: 06/16/18 16:53 Dose: 650 mg Atorvastatin Calcium (Lipitor) 80 mg PO HS [facility] Last Admin: 06/16/18 21:43 Dose: 80 mg Cinacalcet (Sensipar) 30 mg PO DIN [facility] Last Admin: 06/16/18 16:51 Dose: 30 mg Docusate Sodium (Colace) 100 mg PO TID [facility] Last Admin: 06/16/18 17:04 Dose: 100 mg Heparin Sodium (Porcine) (Heparin) 5,000 units SC Q8 [facility]; Protocol Last Admin: 06/17/18 05:18 Dose: 5,000 units Hydrocortisone Sodium Succinate (Solu-Cortef) 25 mg IVP Q6H [facility] Last Admin: 06/17/18 05:19 Dose: 25 mg Dopamine HCl/Dextrose (Dopamine 400mg/250ml D5w) 400 mg in 250 mls @ 16.074 mls/hr IV .[id number] PRN; Protocol PRN Reason: TITRATE TO KEEP SBP>=100 MMHG NOREPINEPHRINE BIT/0.9 % NACL (Levophed 4 Mg/ 250 Ml Ns Premixed) 4 mg in 250 mls @ 15 mls/hr IV .[id number] PRN; Protocol PRN Reason: TITRATE PER MD ORDER Last Admin: 06/15/18 05:06 Dose: 4 mcg/min, 15 mls/hr Vasopressin 20 units/ Sodium (Chloride) 101 mls @ 9.09 mls/hr IV .Q11H7M [facility]; Protocol Last Admin: 06/16/18 11:24 Dose: 9.09 mls/hr Dobutamine HCl/Dextrose (Dobutamine/Dextrose 5% 500mg/250ml) 500 mg in 250 mls @ 5.144 mls/hr IV .Q24H PRN; Protocol PRN Reason: TITRATE PER PROTOCOL Last Titration: 06/16/18 18:45 Dose: Infused Dexmedetomidine HCl (Precedex 400mcg/100ml) 400 mcg in 100 mls @ 4.286 mls/hr IV .[id number] PRN; Protocol PRN Reason: Agitation Last Titration: 06/16/18 09:30 Dose: Infused Metronidazole (Flagyl) 500 mg in 100 mls @ 100 mls/hr IVPB Q8 [facility]; Protocol Stop: 06/19/18 14:00 Last Admin: 06/17/18 05:18 Dose: 100 mls/hr Vancomycin HCl 2.5 gm/ Sodium (Chloride) 500 mls @ 170 mls/hr IVPB ONCE ONE; Protocol Stop: 06/17/18 09:50 Insulin Human Regular (Humulin R Low) 0 units SC ACHS [facility]; Protocol Last Admin: 06/16/18 22:04 Dose: Not Given Levothyroxine Sodium (Synthroid) 12.5 mcg IVP DAILY [facility] Last Admin: 06/16/18 19:23 Dose: 12.5 mcg Lorazepam (Ativan) 2 mg IVP ONCE PRN; Protocol PRN Reason: Agitation Last Admin: 06/12/18 19:56 Dose: 2 mg Midodrine (Proamatine) 2.5 mg PO TID [facility] Last Admin: 06/16/18 18:31 Dose: 2.5 mg Mupirocin (Bactroban Ointment) 0 gm TOP BID [facility] Last Admin: 06/15/18 18:07 Dose: 1 cm2 Ondansetron HCl (Zofran Inj) 4 mg IVP Q4H PRN PRN Reason: Nausea/Vomiting Oxycodone/Acetaminophen (Percocet 5/325 Mg Tab) 1 tab PO Q6H PRN PRN Reason: Pain, severe (8-10) Stop: 06/20/18 08:07 Pantoprazole Sodium (Protonix Ec Tab) 40 mg PO 0600 [facility] Last Admin: 06/14/18 05:38 Dose: Not Given Pantoprazole Sodium (Protonix Inj) 40 mg IVP Q12 [facility] Last Admin: 06/16/18 21:43 Dose: 40 mg Sennosides (Senokot Tab) 17.2 mg PO HS [facility] Last Admin: 06/16/18 21:42 Dose: 17.2 mg Sevelamer HCl (Renagel) 800 mg PO TID [facility] Last Admin: 06/16/18 18:32 Dose: 800 mg Silver Sulfadiazine (Silvadene 1% 25 Gm) 1 gm TP DAILY [facility] Last Admin: 06/15/18 10:00 Dose: 1 gm Sodium Bicarbonate (Sodium Bicarbonate 8.4% (50 Meq) Syringe) 50 meq IVP ONCE PRN PRN Reason: Other Vitamin B Complex/Vit C/Folic Acid (Nephro-Jose Miguel) 1 tab PO DAILY [facility] Last Admin: 06/16/18 08:35 Dose: 1 tab - Labs Labs: 06/17/18 05:30 06/17/18 05:30 PT 18.8 SECONDS (9.4-12.5) H 06/13/18 13:00 INR 1.66 06/13/18 13:00 APTT 137.8 Seconds (26.9-38.3) H* 06/13/18 13:00 - Constitutional Appears: Non-toxic, No Acute Distress - Head Exam Head Exam: ATRAUMATIC, NORMOCEPHALIC - Extremities Exam Additional comments: VASC: DP and PT pulses nonpalpable. CFT <3 seconds to digits. Temperature gradient cool to cool. +1 pitting edema present b/l. ORTHO: Pain on palpation distal tuft of right hallux. Pain upon right hallucal IPJ and 1st MPJ ROM. No pain on palpation to LLE wounds. 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 NEURO: Light touch and protective sensation absent bilaterally. DERM: RLE=Partial thickness wound noted to dorsum of right hallux measuring approximately 0.5 x 0.5 x 0.1 cm 0 ulcer noted to have a mixed fibrogranular base and hyperkeratosis periwound; no drainage; no purulence; no fluctuance; no undermining; no tunneling; no ascending cellulitis; no malodor. Fifth digit webscape laceration with active bleeding. LLE=Partial thickness ulcerations noted to anteromedial ankle joint; wounds noted to have a mixed fibrogranular base and hyperkeratosis periwound; no periwound erythema; no purulence; no drainage; no fluctuance; no malodor. - Neurological Exam Neurological Exam: Alert, Awake, Oriented x3 - Psychiatric Exam Psychiatric exam: Normal Affect, Normal Mood Assessment and Plan - Assessment and Plan (Free Text) Assessment: 67 year old female with 1) bilateral lower extremity wounds, stable 2) right hallux pain, 3) right fifth digit laceration Plan: Patient seen and evaluated with Dr. Holt Afebrile, WBC 9.5 Right foot x-ray; gross degenerative joint disease 1st MPJ, diffuse osteopenia, old healed fx 1st and 2nd mets, posttraumatic atrophy throughout the right 5th digit and 5th met bone Wounds cleansed with normal sterile saline Laceration cleansed with bactroban dressed with xeroform and DSD; left foot wounds dressed with optifoam Wound cx - staph epidermidis New wound cx from laceration site - (prelim) no growth Pain control per medicine PT/OT consulted Will continue to follow
[2018-06-17] MEDS: Oxycodone/Acetaminophen 5/325 mg Tab PO PRN ×3 (08:54→22:16)
[2018-06-17 09:37] LABS: PLATELET COUNT MANUAL 85 K/mm3 (120-450)
[2018-06-17 09:40] LABS: HYPOCHROMIA 1+; LYMPHOCYTE 6 % (22.0-35.0); MONOCYTE 1 % (1.0-6.0); NEUTROPHIL 93 % (50.0-70.0); PLATELET ESTIMATE LOW (NORMAL); POLYCHROMASIA SLIGHT
[2018-06-17 09:41] LABS: ANISOCYTOSIS 1+; OVALOCYTES 1+; TEAR DROP CELLS SLIGHT
[2018-06-17] MEDS: Multivitamin Vitamin B Complex (Nephro-Vite) Tab PO SCH ×3 (09:46→14:09)
[2018-06-17] MEDS: Insulin Reg-LOW-Coverage SC SCH ×4 (09:49→22:42)
[2018-06-17] MEDS: Levothyroxine 100 mcg (0.1 mg) Inj IVP SCH ×2 (09:51→12:44)
--- NOTE | 2018-06-17 11:31 | CP.PCM.PN ---
Subjective - Date & Time of Evaluation Date of Evaluation: 06/17/18 Time of Evaluation: 11:30 - Subjective Subjective: Nephrology Consultation Note Assessment: stable Shock ? cardiogenic/septic (GPC) Diabetic chronic Kidney Disease (E11.22) Hypertensive Chronic Kidney Disease (I12.0) End stage renal disease (N18.6) dependence on hemodialysis (Z99.2) (TTS) via AVF Anemia (D64.9), Hyperphosphatemia (E83.39), Secondary Hyperparathyroidism (E21.1), HTN (I12.0) CAD s/p CABG obesity thrombocytopenia Lytic lesions ? underlying malignancy breast cellulitis versus malignancy lactic acidosis, GI bleed RV dysfunction, moderate to severe MR Plan: Will plan for next dialysis per TTS schedule. Continue with Nephrovite 1 tab/day. PRBC as needed for anemia. defer further ADAM as concerns with malignancy. Hb 9.3 heme/onc following continue with phos binders, last phos level 3.9 PTH 547 pt started on pressors. maintain hemodynamic stable Glycemic control, Dialysis consistent diet Further work up/management as per primary team Dose meds/antibiotics (if needed) for ESRD status. Avoid fleets enema/magnesium based laxatives. ID following midodrine increased to 10 mg TID Thanks for allowing me to participate in care of your patient. Will follow patient with you. Please call if any Qs. had d/w team Dr Amrit Malone Office: [phone] Subjective: Noted events overnight. feels well. no complaints. appears much bet ter. talkative a lot. c/o chronic back pain off pressors Physical Examination: seen on HD General Appearance: in no acute respiratory distress, better appearing Vitals reviewed and noted as below Head; Atraumatic, normocephalic ENT: no ulcers no thrush. Tongue is midline/dry. Oropharynx: no rash or ulcers. Neck; supple no lymphadenopathy, no thyromegaly or bruit Lungs: Normal respiratory rate/effort. Breath sounds bilateral equal and clear Heart: Normal rate. s1s2 normal. No rub or gallop. Extremities: no edema. No varicose veins Neurological: Patient is AMS status. mostly non communicative but more responsive Skin: Warm and dry. Normal turgor. No rash. Palpitation: Normal elasticity for age Abdomen: Abdomen is soft. Bowel sounds +. There is no abdominal tenderness, no guarding/rigidity or organomegaly Psych: limited insight. MSK: no joint tenderness or swelling. Digits and nails normal, no deformity : kidney or bladder not palpable Access: AVF 06/12/18: breast examined with RN,Rt breast everardo-areolar swelling fulness ? mass, [place] appearance Labs/imaging reviewed. Past medical history, past surgical history, family history, social history, allergy reviewed and noted as below Family Hx: no hx of CKD. Non contributory Objective - Vital Signs/Intake and Output Vital Signs (last 24 hours): Temp Pulse Resp BP Pulse Ox 97.6 F 98 H 33 H 133/70 100 06/17/18 04:00 06/17/18 06:40 06/17/18 06:40 06/17/18 06:00 06/17/18 06:40 Intake and Output: 06/17/18 06/17/18 06:59 18:59 Intake Total 600 Output Total 0 Balance 600 - Medications Medications: Current Medications Acetaminophen (Tylenol 325mg Tab) 650 mg PO Q6 PRN PRN Reason: TEMP>=99.5F Last Admin: 06/11/18 12:02 Dose: 650 mg Acetaminophen (Tylenol 650 Mg Supp) 650 mg RC Q6H PRN PRN Reason: TEMP>=99.5F Acetaminophen (Tylenol 650 Mg Supp) 650 mg RC Q6H PRN PRN Reason: Headache Acetaminophen (Tylenol 325mg Tab) 650 mg PO Q6 PRN PRN Reason: Headache Last Admin: 06/16/18 16:53 Dose: 650 mg Atorvastatin Calcium (Lipitor) 80 mg PO HS [facility] Last Admin: 06/16/18 21:43 Dose: 80 mg Cinacalcet (Sensipar) 30 mg PO DIN [facility] Last Admin: 06/16/18 16:51 Dose: 30 mg Docusate Sodium (Colace) 100 mg PO TID [facility] Last Admin: 06/16/18 17:04 Dose: 100 mg Haloperidol Lactate (Haldol) 0.5 mg IVP Q6 PRN; Protocol PRN Reason: Agitation Heparin Sodium (Porcine) (Heparin) 5,000 units SC Q8 [facility]; Protocol Last Admin: 06/17/18 05:18 Dose: 5,000 units Hydrocortisone Sodium Succinate (Solu-Cortef) 25 mg IVP Q6H [facility] Last Admin: 06/17/18 05:19 Dose: 25 mg Dopamine HCl/Dextrose (Dopamine 400mg/250ml D5w) 400 mg in 250 mls @ 16.074 mls/hr IV .[id number] PRN; Protocol PRN Reason: TITRATE TO KEEP SBP>=100 MMHG NOREPINEPHRINE BIT/0.9 % NACL (Levophed 4 Mg/ 250 Ml Ns Premixed) 4 mg in 250 mls @ 15 mls/hr IV .[id number] PRN; Protocol PRN Reason: TITRATE PER MD ORDER Last Admin: 06/15/18 05:06 Dose: 4 mcg/min, 15 mls/hr Vasopressin 20 units/ Sodium (Chloride) 101 mls @ 9.09 mls/hr IV .Q11H7M [facility]; Protocol Last Admin: 06/16/18 11:24 Dose: 9.09 mls/hr Dobutamine HCl/Dextrose (Dobutamine/Dextrose 5% 500mg/250ml) 500 mg in 250 mls @ 5.144 mls/hr IV .Q24H PRN; Protocol PRN Reason: TITRATE PER PROTOCOL Last Titration: 06/16/18 18:45 Dose: Infused Dexmedetomidine HCl (Precedex 400mcg/100ml) 400 mcg in 100 mls @ 4.286 mls/hr IV .[id number] PRN; Protocol PRN Reason: Agitation Last Titration: 06/16/18 09:30 Dose: Infused Metronidazole (Flagyl) 500 mg in 100 mls @ 100 mls/hr IVPB Q8 [facility]; Protocol Stop: 06/19/18 14:00 Last Admin: 06/17/18 05:18 Dose: 100 mls/hr Insulin Human Regular (Humulin R Low) 0 units SC ACHS [facility]; Protocol Last Admin: 06/17/18 09:49 Dose: 1 unit Levothyroxine Sodium (Synthroid) 12.5 mcg IVP DAILY [facility] Last Admin: 06/16/18 19:23 Dose: 12.5 mcg Lorazepam (Ativan) 2 mg IVP ONCE PRN; Protocol PRN Reason: Agitation Last Admin: 06/12/18 19:56 Dose: 2 mg Lorazepam (Ativan) 0.5 mg PO Q6 PRN; Protocol PRN Reason: Agitation Midodrine (Proamatine) 10 mg PO TID [facility] Last Admin: 06/17/18 09:46 Dose: 10 mg Mupirocin (Bactroban Ointment) 0 gm TOP BID [facility] Last Admin: 06/15/18 18:07 Dose: 1 cm2 Ondansetron HCl (Zofran Inj) 4 mg IVP Q4H PRN PRN Reason: Nausea/Vomiting Oxycodone/Acetaminophen (Percocet 5/325 Mg Tab) 1 tab PO Q6H PRN PRN Reason: Pain, severe (8-10) Stop: 06/20/18 08:07 Pantoprazole Sodium (Protonix Ec Tab) 40 mg PO 0600 [facility] Last Admin: 06/14/18 05:38 Dose: Not Given Pantoprazole Sodium (Protonix Inj) 40 mg IVP Q12 [facility] Last Admin: 06/16/18 21:43 Dose: 40 mg Sennosides (Senokot Tab) 17.2 mg PO HS [facility] Last Admin: 06/16/18 21:42 Dose: 17.2 mg Sevelamer HCl (Renagel) 800 mg PO TID [facility] Last Admin: 06/16/18 18:32 Dose: 800 mg Silver Sulfadiazine (Silvadene 1% 25 Gm) 1 gm TP DAILY [facility] Last Admin: 06/15/18 10:00 Dose: 1 gm Sodium Bicarbonate (Sodium Bicarbonate 8.4% (50 Meq) Syringe) 50 meq IVP ONCE PRN PRN Reason: Other Vitamin B Complex/Vit C/Folic Acid (Nephro-Jose Miguel) 1 tab PO DAILY [facility] Last Admin: 06/16/18 08:35 Dose: 1 tab - Labs Labs: 06/17/18 05:30 06/17/18 05:30 PT 18.8 SECONDS (9.4-12.5) H 06/13/18 13:00 INR 1.66 06/13/18 13:00 APTT 137.8 Seconds (26.9-38.3) H* 06/13/18 13:00
--- NOTE | 2018-06-17 12:32 | CP.PCM.PN ---
Subjective - Date & Time of Evaluation Date of Evaluation: 06/17/18 Time of Evaluation: 09:00 - Subjective Subjective: (covering for Dr. Simeon) Patient is seen this morning in intensive care unit bed 5. She is awake, alert and oriented. Patient says she has been seen by too many doctors and refused to be examined. Objective - Vital Signs/Intake and Output Vital Signs (last 24 hours): Temp Pulse Resp BP Pulse Ox 97.6 F 98 H 33 H 133/70 100 06/17/18 04:00 06/17/18 06:40 06/17/18 06:40 06/17/18 06:00 06/17/18 06:40 Intake and Output: 06/17/18 06/17/18 06:59 18:59 Intake Total 600 Output Total 0 Balance 600 - Medications Medications: Current Medications Acetaminophen (Tylenol 325mg Tab) 650 mg PO Q6 PRN PRN Reason: TEMP>=99.5F Last Admin: 06/11/18 12:02 Dose: 650 mg Acetaminophen (Tylenol 650 Mg Supp) 650 mg RC Q6H PRN PRN Reason: TEMP>=99.5F Acetaminophen (Tylenol 650 Mg Supp) 650 mg RC Q6H PRN PRN Reason: Headache Acetaminophen (Tylenol 325mg Tab) 650 mg PO Q6 PRN PRN Reason: Headache Last Admin: 06/16/18 16:53 Dose: 650 mg Atorvastatin Calcium (Lipitor) 80 mg PO HS [facility] Last Admin: 06/16/18 21:43 Dose: 80 mg Cinacalcet (Sensipar) 30 mg PO DIN [facility] Last Admin: 06/16/18 16:51 Dose: 30 mg Docusate Sodium (Colace) 100 mg PO TID [facility] Last Admin: 06/16/18 17:04 Dose: 100 mg Haloperidol Lactate (Haldol) 0.5 mg IVP Q6 PRN; Protocol PRN Reason: Agitation Heparin Sodium (Porcine) (Heparin) 5,000 units SC Q8 [facility]; Protocol Last Admin: 06/17/18 05:18 Dose: 5,000 units Hydrocortisone Sodium Succinate (Solu-Cortef) 25 mg IVP Q6H [facility] Last Admin: 06/17/18 05:19 Dose: 25 mg Dopamine HCl/Dextrose (Dopamine 400mg/250ml D5w) 400 mg in 250 mls @ 16.074 mls/hr IV .[id number] PRN; Protocol PRN Reason: TITRATE TO KEEP SBP>=100 MMHG NOREPINEPHRINE BIT/0.9 % NACL (Levophed 4 Mg/ 250 Ml Ns Premixed) 4 mg in 250 mls @ 15 mls/hr IV .[id number] PRN; Protocol PRN Reason: TITRATE PER MD ORDER Last Admin: 06/15/18 05:06 Dose: 4 mcg/min, 15 mls/hr Vasopressin 20 units/ Sodium (Chloride) 101 mls @ 9.09 mls/hr IV .Q11H7M [facility]; Protocol Last Admin: 06/16/18 11:24 Dose: 9.09 mls/hr Dobutamine HCl/Dextrose (Dobutamine/Dextrose 5% 500mg/250ml) 500 mg in 250 mls @ 5.144 mls/hr IV .Q24H PRN; Protocol PRN Reason: TITRATE PER PROTOCOL Last Titration: 06/16/18 18:45 Dose: Infused Dexmedetomidine HCl (Precedex 400mcg/100ml) 400 mcg in 100 mls @ 4.286 mls/hr IV .[id number] PRN; Protocol PRN Reason: Agitation Last Titration: 06/16/18 09:30 Dose: Infused Metronidazole (Flagyl) 500 mg in 100 mls @ 100 mls/hr IVPB Q8 [facility]; Protocol Stop: 06/19/18 14:00 Last Admin: 06/17/18 05:18 Dose: 100 mls/hr Insulin Human Regular (Humulin R Low) 0 units SC ACHS [facility]; Protocol Last Admin: 06/17/18 09:49 Dose: 1 unit Levothyroxine Sodium (Synthroid) 12.5 mcg IVP DAILY [facility] Last Admin: 06/16/18 19:23 Dose: 12.5 mcg Lorazepam (Ativan) 2 mg IVP ONCE PRN; Protocol PRN Reason: Agitation Last Admin: 06/12/18 19:56 Dose: 2 mg Lorazepam (Ativan) 0.5 mg PO Q6 PRN; Protocol PRN Reason: Agitation Midodrine (Proamatine) 10 mg PO TID [facility] Last Admin: 06/17/18 09:46 Dose: 10 mg Mupirocin (Bactroban Ointment) 0 gm TOP BID [facility] Last Admin: 06/15/18 18:07 Dose: 1 cm2 Ondansetron HCl (Zofran Inj) 4 mg IVP Q4H PRN PRN Reason: Nausea/Vomiting Oxycodone/Acetaminophen (Percocet 5/325 Mg Tab) 1 tab PO Q6H PRN PRN Reason: Pain, severe (8-10) Stop: 06/20/18 08:07 Pantoprazole Sodium (Protonix Ec Tab) 40 mg PO 0600 [facility] Last Admin: 06/14/18 05:38 Dose: Not Given Pantoprazole Sodium (Protonix Inj) 40 mg IVP Q12 [facility] Last Admin: 06/16/18 21:43 Dose: 40 mg Sennosides (Senokot Tab) 17.2 mg PO HS [facility] Last Admin: 06/16/18 21:42 Dose: 17.2 mg Sevelamer HCl (Renagel) 800 mg PO TID [facility] Last Admin: 06/16/18 18:32 Dose: 800 mg Silver Sulfadiazine (Silvadene 1% 25 Gm) 1 gm TP DAILY [facility] Last Admin: 06/15/18 10:00 Dose: 1 gm Sodium Bicarbonate (Sodium Bicarbonate 8.4% (50 Meq) Syringe) 50 meq IVP ONCE PRN PRN Reason: Other Vitamin B Complex/Vit C/Folic Acid (Nephro-Jose Miguel) 1 tab PO DAILY [facility] Last Admin: 06/16/18 08:35 Dose: 1 tab - Labs Labs: 06/17/18 05:30 06/17/18 05:30 PT 18.8 SECONDS (9.4-12.5) H 06/13/18 13:00 INR 1.66 06/13/18 13:00 APTT 137.8 Seconds (26.9-38.3) H* 06/13/18 13:00 Assessment and Plan - Assessment and Plan (Free Text) Assessment: Acute cardiogenic and septic shock with pressor dependent hypotension Questionable DIC Thrombocytopenia Anemia of Chronic Kidney Disease Right breast cellulitis ESRD on HD Acute NSTEMI HTN Diastolic heart failure Staph aureus bacteremia Left foot Staph epidermidis diabetic ulceration Plan: Patient was seen in the intensive care unit bed 5, while receiving dialysis. According to the MAR, patient is on Dobutamine, Levophed and Precedex for hypotension. She is on IV antibiotics as per infectious disease. She will continue wound care as per podiatry. She is off heparin due to thrombocytopenia. She is also being evaluated for possible GI bleed. GI, Cardiology, Hematology/ Oncology, Nephrology, Critical Care and Podiatry specialists are following the patient.
[2018-06-17] MEDS: Silver Sulfadiazine 1% Cream (25 gm) TP SCH ×2 (12:53→12:54)
[2018-06-17] MEDS: Mupirocin 2% Ointment 15 GM TUBE TOP SCH ×4 (12:53→18:05)
--- NOTE | 2018-06-17 13:45 | CP.PCM.PN ---
Subjective - Date & Time of Evaluation Date of Evaluation: 06/17/18 Time of Evaluation: 08:10 - Subjective Subjective: patient seen and examined on rounds, reports no major complaints Objective - Vital Signs/Intake and Output Vital Signs (last 24 hours): Temp Pulse Resp BP Pulse Ox 97.6 F 97 H 24 180/67 H 99 06/17/18 04:00 06/17/18 12:17 06/17/18 12:17 06/17/18 12:17 06/17/18 12:17 Intake and Output: 06/17/18 06/17/18 06:59 18:59 Intake Total 600 Output Total 0 Balance 600 - Medications Medications: Current Medications Acetaminophen (Tylenol 325mg Tab) 650 mg PO Q6 PRN PRN Reason: TEMP>=99.5F Last Admin: 06/11/18 12:02 Dose: 650 mg Acetaminophen (Tylenol 650 Mg Supp) 650 mg RC Q6H PRN PRN Reason: TEMP>=99.5F Acetaminophen (Tylenol 650 Mg Supp) 650 mg RC Q6H PRN PRN Reason: Headache Acetaminophen (Tylenol 325mg Tab) 650 mg PO Q6 PRN PRN Reason: Headache Last Admin: 06/16/18 16:53 Dose: 650 mg Atorvastatin Calcium (Lipitor) 80 mg PO HS [facility] Last Admin: 06/16/18 21:43 Dose: 80 mg Cinacalcet (Sensipar) 30 mg PO DIN [facility] Last Admin: 06/16/18 16:51 Dose: 30 mg Docusate Sodium (Colace) 100 mg PO TID [facility] Last Admin: 06/17/18 13:40 Dose: 100 mg Haloperidol Lactate (Haldol) 0.5 mg IVP Q6 PRN; Protocol PRN Reason: Agitation Heparin Sodium (Porcine) (Heparin) 5,000 units SC Q8 [facility]; Protocol Last Admin: 06/17/18 13:40 Dose: 5,000 units Hydrocortisone Sodium Succinate (Solu-Cortef) 25 mg IVP Q6H [facility] Last Admin: 06/17/18 12:56 Dose: 25 mg Dopamine HCl/Dextrose (Dopamine 400mg/250ml D5w) 400 mg in 250 mls @ 16.074 mls/hr IV .[id number] PRN; Protocol PRN Reason: TITRATE TO KEEP SBP>=100 MMHG Metronidazole (Flagyl) 500 mg in 100 mls @ 100 mls/hr IVPB Q8 [facility]; Protocol Stop: 06/19/18 14:00 Last Admin: 06/17/18 13:39 Dose: 100 mls/hr Insulin Human Regular (Humulin R Low) 0 units SC ACHS [facility]; Protocol Last Admin: 06/17/18 13:36 Dose: Not Given Levothyroxine Sodium (Synthroid) 12.5 mcg IVP DAILY [facility] Last Admin: 06/17/18 12:44 Dose: 12.5 mcg Lorazepam (Ativan) 2 mg IVP ONCE PRN; Protocol PRN Reason: Agitation Last Admin: 06/12/18 19:56 Dose: 2 mg Lorazepam (Ativan) 0.5 mg PO Q6 PRN; Protocol PRN Reason: Agitation Midodrine (Proamatine) 10 mg PO TID [facility] Last Admin: 06/17/18 13:40 Dose: 10 mg Mupirocin (Bactroban Ointment) 0 gm TOP BID [facility] Last Admin: 06/17/18 12:53 Dose: 1 cm2 Ondansetron HCl (Zofran Inj) 4 mg IVP Q4H PRN PRN Reason: Nausea/Vomiting Oxycodone/Acetaminophen (Percocet 5/325 Mg Tab) 1 tab PO Q6H PRN PRN Reason: Pain, severe (8-10) Stop: 06/20/18 08:07 Last Admin: 06/17/18 08:58 Dose: 1 tab Pantoprazole Sodium (Protonix Ec Tab) 40 mg PO 0600 [facility] Last Admin: 06/14/18 05:38 Dose: Not Given Pantoprazole Sodium (Protonix Inj) 40 mg IVP Q12 [facility] Last Admin: 06/17/18 12:44 Dose: 40 mg Sennosides (Senokot Tab) 17.2 mg PO HS [facility] Last Admin: 06/16/18 21:42 Dose: 17.2 mg Sevelamer HCl (Renagel) 800 mg PO TID [facility] Last Admin: 06/17/18 13:37 Dose: 800 mg Silver Sulfadiazine (Silvadene 1% 25 Gm) 1 gm TP DAILY [facility] Last Admin: 06/17/18 12:54 Dose: 1 gm Sodium Bicarbonate (Sodium Bicarbonate 8.4% (50 Meq) Syringe) 50 meq IVP ONCE PRN PRN Reason: Other Vitamin B Complex/Vit C/Folic Acid (Nephro-Jose Miguel) 1 tab PO DAILY [facility] Last Admin: 06/17/18 13:37 Dose: 1 tab - Labs Labs: 06/17/18 05:30 06/17/18 05:30 PT 18.8 SECONDS (9.4-12.5) H 06/13/18 13:00 INR 1.66 06/13/18 13:00 APTT 137.8 Seconds (26.9-38.3) H* 06/13/18 13:00 - Constitutional Appears: Non-toxic, No Acute Distress, Older Than Stated Age - Head Exam Head Exam: NORMAL INSPECTION - Eye Exam Eye Exam: Normal appearance - ENT Exam ENT Exam: Mucous Membranes Moist - Respiratory Exam Respiratory Exam: Clear to Ausculation Bilateral, NORMAL BREATHING PATTERN - Cardiovascular Exam Cardiovascular Exam: REGULAR RHYTHM, +S1, +S2 - GI/Abdominal Exam GI & Abdominal Exam: Soft, Normal Bowel Sounds - Extremities Exam Extremities Exam: Normal Inspection - Neurological Exam Neurological Exam: Alert, Awake Assessment and Plan - Assessment and Plan (Free Text) Assessment: Patient is 67yo female with PMHx AD s/p CABG and 5 stents, ESRD on HD T//, HTN, hypothyroidism and DM admitted to MICU with obstructive shock, severely dilated RV on pressor support, currently only OFF ALL vasopressor support for >24hrs now. AAOx3, NAD tolerated HD today, Cardiology following, possible cath tuesday V/Q scan negative for PE Right heart failure Dilated RV ESRD on HD CAD s/p CABG HTN HYpothyroidism DM Recommend: - supp o2 as needed, duonebs PRN, BIPAP at night - ABx as per ID - HD as per renal - FS control - Follow up GI - monitor HH - GI ppx - DVT ppx, SCDs - transfer to [facility], stable
--- NOTE | 2018-06-17 13:57 | CP.PCM.PN ---
Subjective - Date & Time of Evaluation Date of Evaluation: 06/17/18 Time of Evaluation: 12:20 - Subjective Subjective: No fevers, less pain the right breast area, more awake today, no nausea. Objective - Vital Signs/Intake and Output Vital Signs (last 24 hours): Temp Pulse Resp BP Pulse Ox 97.6 F 66 22 95/35 L 99 06/16/18 12:00 06/16/18 12:00 06/16/18 06:10 06/16/18 11:24 06/16/18 06:10 Intake and Output: 06/16/18 06/16/18 06:59 18:59 Intake Total 658 Output Total 0 Balance 658 - Medications Medications: Current Medications Acetaminophen (Tylenol 325mg Tab) 650 mg PO Q6 PRN PRN Reason: TEMP>=99.5F Last Admin: 06/11/18 12:02 Dose: 650 mg Acetaminophen (Tylenol 650 Mg Supp) 650 mg RC Q6H PRN PRN Reason: TEMP>=99.5F Acetaminophen (Tylenol 650 Mg Supp) 650 mg RC Q6H PRN PRN Reason: Headache Acetaminophen (Tylenol 325mg Tab) 650 mg PO Q6 PRN PRN Reason: Headache Last Admin: 06/12/18 00:58 Dose: 650 mg Atorvastatin Calcium (Lipitor) 80 mg PO HS [facility] Last Admin: 06/15/18 21:59 Dose: Not Given Cinacalcet (Sensipar) 30 mg PO DIN [facility] Last Admin: 06/15/18 18:16 Dose: Not Given Docusate Sodium (Colace) 100 mg PO TID [facility] Last Admin: 06/15/18 18:15 Dose: Not Given Heparin Sodium (Porcine) (Heparin) 5,000 units SC Q8 [facility]; Protocol Last Admin: 06/16/18 05:23 Dose: 5,000 units Hydrocortisone Sodium Succinate (Solu-Cortef) 25 mg IVP Q6H [facility] Dopamine HCl/Dextrose (Dopamine 400mg/250ml D5w) 400 mg in 250 mls @ 16.074 mls/hr IV .[id number] PRN; Protocol PRN Reason: TITRATE TO KEEP SBP>=100 MMHG NOREPINEPHRINE BIT/0.9 % NACL (Levophed 4 Mg/ 250 Ml Ns Premixed) 4 mg in 250 mls @ 15 mls/hr IV .[id number] PRN; Protocol PRN Reason: TITRATE PER MD ORDER Last Admin: 06/15/18 05:06 Dose: 4 mcg/min, 15 mls/hr Vasopressin 20 units/ Sodium (Chloride) 101 mls @ 9.09 mls/hr IV .Q11H7M [facility]; Protocol Last Admin: 06/16/18 11:24 Dose: 9.09 mls/hr Daptomycin 510 mg/ Sodium (Chloride) 100 mls @ 200 mls/hr IV QOTHERDAY [facility] Stop: 06/17/18 16:01 Last Admin: 06/14/18 11:55 Dose: 200 mls/hr Dobutamine HCl/Dextrose (Dobutamine/Dextrose 5% 500mg/250ml) 500 mg in 250 mls @ 5.144 mls/hr IV .Q24H PRN; Protocol PRN Reason: TITRATE PER PROTOCOL Last Admin: 06/16/18 05:25 Dose: 4 mcg/kg/min, 10.287 mls/hr Dexmedetomidine HCl (Precedex 400mcg/100ml) 400 mcg in 100 mls @ 4.286 mls/hr IV .[id number] PRN; Protocol PRN Reason: Agitation Last Admin: 06/15/18 10:01 Dose: 0.21 mcg/kg/hr, 4.7 mls/hr Metronidazole (Flagyl) 500 mg in 100 mls @ 100 mls/hr IVPB Q8 [facility]; Protocol Stop: 06/19/18 14:00 Last Admin: 06/16/18 05:24 Dose: 100 mls/hr Aztreonam (Azactam 1 Gm) 100 mls @ 100 mls/hr IVPB Q12 [facility]; Protocol Stop: 06/16/18 22:59 Insulin Human Regular (Humulin R Low) 0 units SC ACHS [facility]; Protocol Last Admin: 06/16/18 08:39 Dose: 2 unit Levothyroxine Sodium (Synthroid) 12.5 mcg IVP DAILY [facility] Last Admin: 06/15/18 09:52 Dose: 12.5 mcg Lorazepam (Ativan) 2 mg IVP ONCE PRN; Protocol PRN Reason: Agitation Last Admin: 06/12/18 19:56 Dose: 2 mg Midodrine (Proamatine) 2.5 mg PO TID [facility] Last Admin: 06/15/18 18:17 Dose: Not Given Mupirocin (Bactroban Ointment) 0 gm TOP BID [facility] Last Admin: 06/15/18 18:07 Dose: 1 cm2 Ondansetron HCl (Zofran Inj) 4 mg IVP Q4H PRN PRN Reason: Nausea/Vomiting Pantoprazole Sodium (Protonix Ec Tab) 40 mg PO 0600 [facility] Last Admin: 06/14/18 05:38 Dose: Not Given Pantoprazole Sodium (Protonix Inj) 40 mg IVP Q12 [facility] Last Admin: 06/15/18 22:00 Dose: 40 mg Sennosides (Senokot Tab) 17.2 mg PO HS [facility] Last Admin: 06/15/18 22:00 Dose: Not Given Sevelamer HCl (Renagel) 800 mg PO TID [facility] Last Admin: 06/15/18 18:17 Dose: Not Given Silver Sulfadiazine (Silvadene 1% 25 Gm) 1 gm TP DAILY [facility] Last Admin: 06/15/18 10:00 Dose: 1 gm Sodium Bicarbonate (Sodium Bicarbonate 8.4% (50 Meq) Syringe) 50 meq IVP ONCE PRN PRN Reason: Other Vitamin B Complex/Vit C/Folic Acid (Nephro-Jose Miguel) 1 tab PO DAILY [facility] Last Admin: 06/15/18 10:00 Dose: Not Given - Labs Labs: 06/16/18 04:10 06/16/18 04:10 PT 18.8 SECONDS (9.4-12.5) H 06/13/18 13:00 INR 1.66 06/13/18 13:00 APTT 137.8 Seconds (26.9-38.3) H* 06/13/18 13:00 - Constitutional Appears: No Acute Distress, Chronically Ill - Head Exam Head Exam: NORMAL INSPECTION - Neck Exam Additional comments: right IJ TLC in place - Respiratory Exam Respiratory Exam: Decreased Breath Sounds Additional comments: decreased erythema and swelling of right breast - Cardiovascular Exam Cardiovascular Exam: +S1, +S2 - GI/Abdominal Exam GI & Abdominal Exam: Soft. absent: Tenderness Assessment and Plan - Assessment and Plan (Free Text) Plan: Assessment S/P Hypotension, consider due to right sided heart failure, consider GI bleeding coagulase negative staph bacteremia, source not clear right breast cellulitis obesity with BMI 31 ESRD on HD hypothyroidism DM dyslipidemia CAD S/P CABG S/P foot surgery Plan continue Azactam, Flagyl, and switched Daptomycin to Vancomycin with HD day 7 ; blood cx showing CoNS from 06/12 - source is not clear, 2D echo on 06/12 was not specific for vegetations, repeat blood cx negative - target 10 days of therapy will continue to monitor clinically prognosis is guarded follow up further ICU work up for possible GI bleeding
--- NOTE | 2018-06-17 18:22 | CON ---
DATE: 06/17/2018 HISTORY OF PRESENT ILLNESS: The patient is a 67-year-old -[place] single female who has no prior psychiatric history per the patient, who was admitted with an extensive medical history (please refer to medical note for a full comprehensive medical history), who has been treated in the CCU and noted to be confused, disoriented, talking nonstop as well as difficulty on the unit. Psychiatrist consulted to evaluate. I reviewed recent notes. I met with the patient at bedside. Apparently, the patient received Ativan 0.5 mg through IV early this morning around 3:11, however continued to stay awake talking to herself. The patient was very reluctant to speak with me and defensive, paranoid, sarcastic when I first introduced myself. At the time of interview, the patient is quite aware that Psychiatry was called because she "could not stop talking". The patient states "I am not crazy, that is what I always do". The patient is oriented to current month, year, location, circumstances. She complains that her left wrist is broken and the slicing machine operator took blood from that area despite her protest. She denies any depression and anxiety. She does not seem to be hallucinating at this time and delusions were not elicited. She is very resentful and she admits that she is feeling unhappy about her medical issues and her hospitalization, but she is most definitely not suicidal. The patient reports that she has never been suicidal and appears to be somewhat insulted by the question, which I do not find her for. Of note, the patient's insight is fair. She denies any hallucinations as noted. Her affect is labile, although unpredictable. Focus is inconsistent. PSYCHIATRIC HISTORY: The patient denies any prior psychiatric admissions, suicides, or psychiatric outpatient medication trials. SOCIAL HISTORY: The patient reports that she is not . She lives alone. She has a 29-year-old son. She does not use drugs and she has no alcohol issues; however, she drank and smoked about 43 years ago. IMPRESSION: The patient has adjustment disorder with anxiety and mood changes as well as delirium as she appears to be more lucid right now and has definitely shown signs of confusion and disorientation while hospitalizing in the intensive care unit. RECOMMENDATIONS: At this time, I will provide Haldol p.r.n. with Ativan p.r.n. at a very low dose as the patient appears to be not medication naive for delirium symptoms. Psychiatry will sign off. Please reconsult p.r.n. Ivan Varghese MD
[2018-06-18 06:59] LABS: ALBUMIN 3.5 g/dL (3.0-4.8); BILIRUBIN,DIRECT 1.2 mg/dL (0.0-0.4); CALCIUM 7.3 mg/dL (8.4-10.5)
[2018-06-18 07:02] LABS: EOS % 0.1 % (1.5-5.0); HEMOGLOBIN 9.3 g/dL (12.0-16.0); LYMPH # 0.3 (1.2-3.4); LYMPH % 3.8 % (22.0-35.0); MEAN CELL VOLUME 93.9 fl (80.0-105.0); MEAN CORPUSCULAR HEMOGLOBIN 31.3 pg (25.0-35.0); MEAN CORPUSCULAR HGB CONC 33.3 g/dl (31.0-37.0); MEAN PLATELET VOLUME 10.4 fl (7.0-11.0); MONO # 0.5 (0.1-0.6); MONO % 5.2 % (1.0-6.0); RBC 2.97 10^6/uL (3.5-6.1); RED CELL DISTRIBUTION WIDTH 18.5 % (11.5-14.5); WHITE BLOOD COUNT 8.8 10^3/uL (4.5-11.0)
[2018-06-18] MEDS: Insulin Reg-LOW-Coverage SC SCH ×4 (08:18→22:40)
[2018-06-18] MEDS: Oxycodone/Acetaminophen 5/325 mg Tab PO PRN (08:19)
[2018-06-18] MEDS: Levothyroxine 100 mcg (0.1 mg) Inj IVP SCH (10:01)
[2018-06-18] MEDS: Multivitamin Vitamin B Complex (Nephro-Vite) Tab PO SCH (10:01)
--- NOTE | 2018-06-18 10:16 | PN ---
DATE: 06/18/2018 CARDIOLOGY FOLLOWUP SUBJECTIVE: The patient is without new complaints. PHYSICAL EXAMINATION: VITAL SIGNS: Blood pressure is 123/70, heart rate is in the 90s, sinus rhythm. Physical exam is unchanged. LABORATORY DATA: Hemoglobin is 9.3. Chemistries: BUN and creatinine 27 and 3 with a glucose of 217. IMPRESSION: 1. Status post non-ST elevation myocardial infarction. 2. Anemia, no evidence for active bleeding. 3. Coronary artery disease. 4. Right ventricular dilatation. 5. Transient hypotension. Given these findings, I have discussed with the patient as well as with the family the risks and benefits of cardiac catheterization. They are agreeable. We will schedule for the morning. Chan Berman MD
--- NOTE | 2018-06-18 11:00 | CP.PCM.PN ---
<Evelyn Whitehead - Last Filed: 06/18/18 10:57> Subjective - Date & Time of Evaluation Date of Evaluation: 06/18/18 Time of Evaluation: 10:57 - Subjective Subjective: Podiatry progress note: Dr. Holt 67 year old female patient seen and evaluated at bedside in ICU with 5th digit laceration. Patient resting comfortably and in NAD. Patient's son present at bedside. Per nursing, no acute events overnight. Objective - Vital Signs/Intake and Output Vital Signs (last 24 hours): Temp Pulse Resp BP Pulse Ox 98.3 F 85 14 123/70 99 06/18/18 06:00 06/18/18 06:00 06/17/18 18:31 06/17/18 18:30 06/17/18 18:29 Intake and Output: 06/18/18 06/18/18 06:59 18:59 Intake Total 240 Output Total 0 Balance 240 - Medications Medications: Current Medications Acetaminophen (Tylenol 325mg Tab) 650 mg PO Q6 PRN PRN Reason: TEMP>=99.5F Last Admin: 06/11/18 12:02 Dose: 650 mg Acetaminophen (Tylenol 650 Mg Supp) 650 mg RC Q6H PRN PRN Reason: TEMP>=99.5F Acetaminophen (Tylenol 650 Mg Supp) 650 mg RC Q6H PRN PRN Reason: Headache Acetaminophen (Tylenol 325mg Tab) 650 mg PO Q6 PRN PRN Reason: Headache Last Admin: 06/16/18 16:53 Dose: 650 mg Atorvastatin Calcium (Lipitor) 80 mg PO HS [facility] Last Admin: 06/17/18 22:16 Dose: 80 mg Cinacalcet (Sensipar) 30 mg PO DIN [facility] Last Admin: 06/17/18 18:18 Dose: 30 mg Docusate Sodium (Colace) 100 mg PO TID [facility] Last Admin: 06/18/18 09:45 Dose: Not Given Haloperidol Lactate (Haldol) 0.5 mg IVP Q6 PRN; Protocol PRN Reason: Agitation Last Admin: 06/18/18 03:44 Dose: 0.5 mg Heparin Sodium (Porcine) (Heparin) 5,000 units SC Q8 [facility]; Protocol Last Admin: 06/18/18 05:43 Dose: 5,000 units Hydrocortisone Sodium Succinate (Solu-Cortef) 25 mg IVP Q6H [facility] Last Admin: 06/18/18 05:43 Dose: 25 mg Dopamine HCl/Dextrose (Dopamine 400mg/250ml D5w) 400 mg in 250 mls @ 16.074 mls/hr IV .[id number] PRN; Protocol PRN Reason: TITRATE TO KEEP SBP>=100 MMHG Insulin Human Regular (Humulin R Low) 0 units SC ACHS [facility]; Protocol Last Admin: 06/18/18 08:18 Dose: 4 unit Levothyroxine Sodium (Synthroid) 12.5 mcg IVP DAILY [facility] Last Admin: 06/18/18 10:01 Dose: 12.5 mcg Lorazepam (Ativan) 2 mg IVP ONCE PRN; Protocol PRN Reason: Agitation Last Admin: 06/12/18 19:56 Dose: 2 mg Lorazepam (Ativan) 0.5 mg PO Q6 PRN; Protocol PRN Reason: Agitation Midodrine (Proamatine) 10 mg PO TID [facility] Last Admin: 06/18/18 10:02 Dose: 10 mg Mupirocin (Bactroban Ointment) 0 gm TOP BID [facility] Last Admin: 06/17/18 18:05 Dose: 1 cm2 Ondansetron HCl (Zofran Inj) 4 mg IVP Q4H PRN PRN Reason: Nausea/Vomiting Oxycodone/Acetaminophen (Percocet 5/325 Mg Tab) 1 tab PO Q6H PRN PRN Reason: Pain, severe (8-10) Stop: 06/20/18 08:07 Last Admin: 06/18/18 08:19 Dose: 1 tab Pantoprazole Sodium (Protonix Ec Tab) 40 mg PO 0600 [facility] Last Admin: 06/14/18 05:38 Dose: Not Given Pantoprazole Sodium (Protonix Inj) 40 mg IVP Q12 [facility] Last Admin: 06/18/18 10:01 Dose: 40 mg Sennosides (Senokot Tab) 17.2 mg PO HS [facility] Last Admin: 06/17/18 22:17 Dose: 17.2 mg Sevelamer HCl (Renagel) 800 mg PO TID [facility] Last Admin: 06/18/18 10:02 Dose: 800 mg Silver Sulfadiazine (Silvadene 1% 25 Gm) 1 gm TP DAILY [facility] Last Admin: 06/17/18 12:54 Dose: 1 gm Sodium Bicarbonate (Sodium Bicarbonate 8.4% (50 Meq) Syringe) 50 meq IVP ONCE PRN PRN Reason: Other Vitamin B Complex/Vit C/Folic Acid (Nephro-Jose Miguel) 1 tab PO DAILY [facility] Last Admin: 06/18/18 10:01 Dose: 1 tab - Labs Labs: 06/18/18 06:00 06/18/18 06:00 PT 18.8 SECONDS (9.4-12.5) H 06/13/18 13:00 INR 1.66 06/13/18 13:00 APTT 137.8 Seconds (26.9-38.3) H* 06/13/18 13:00 - Constitutional Appears: Non-toxic, No Acute Distress - Extremities Exam Additional comments: VASC: DP and PT pulses nonpalpable. CFT <3 seconds to digits. Temperature gradient cool to cool. +1 pitting edema present b/l. ORTHO: Pain on palpation distal tuft of right hallux. Pain upon right hallucal IPJ and 1st MPJ ROM. No pain on palpation to LLE wounds. 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 NEURO: Light touch and protective sensation absent bilaterally. DERM: RLE=Partial thickness wound noted to dorsum of right hallux measuring approximately 0.5 x 0.5 x 0.1 cm 0 ulcer noted to have a mixed fibrogranular base and hyperkeratosis periwound; resolving. Fifth digit webscape laceration appreciated with no drainage. LLE=Partial thickness ulcerations noted to anteromedial ankle joint; wounds noted to have a mixed fibrogranular base and hyperkeratosis periwound; no periwound erythema; no purulence; no drainage; no fluctuance; no malodor. - Neurological Exam Neurological Exam: Alert, Awake, Oriented x3 - Psychiatric Exam Psychiatric exam: Normal Affect, Normal Mood Assessment and Plan - Assessment and Plan (Free Text) Assessment: 67 year old female with 1) bilateral lower extremity wounds, stable 2) right fifth digit laceration Plan: Patient seen and evaluated Discussed patient with Dr. Holt Afebrile, WBC 8.8 Right foot x-ray; gross degenerative joint disease 1st MPJ, diffuse osteopenia, old healed fx 1st and 2nd mets, posttraumatic atrophy throughout the right 5th digit and 5th met bone Wounds cleansed with normal sterile saline Laceration cleansed with bactroban dressed with xeroform and DSD; left foot wounds dressed with optifoam Wound cx - staph epidermidis New wound cx from laceration site - (prelim) no growth Pain control per medicine PT/OT consulted Will continue to follow <Alex Holt - Last Filed: 06/18/18 12:14> Objective - Vital Signs/Intake and Output Vital Signs (last 24 hours): Temp Pulse Resp BP Pulse Ox 98.3 F 84 14 123/70 99 06/18/18 06:00 06/18/18 11:00 06/17/18 18:31 06/17/18 18:30 06/17/18 18:29 Intake and Output: 06/18/18 06/18/18 06:59 18:59 Intake Total 240 Output Total 0 Balance 240 - Medications Medications: Current Medications Acetaminophen (Tylenol 325mg Tab) 650 mg PO Q6 PRN PRN Reason: TEMP>=99.5F Last Admin: 06/11/18 12:02 Dose: 650 mg Acetaminophen (Tylenol 650 Mg Supp) 650 mg RC Q6H PRN PRN Reason: TEMP>=99.5F Acetaminophen (Tylenol 650 Mg Supp) 650 mg RC Q6H PRN PRN Reason: Headache Acetaminophen (Tylenol 325mg Tab) 650 mg PO Q6 PRN PRN Reason: Headache Last Admin: 06/16/18 16:53 Dose: 650 mg Atorvastatin Calcium (Lipitor) 80 mg PO HS [facility] Last Admin: 06/17/18 22:16 Dose: 80 mg Cinacalcet (Sensipar) 30 mg PO DIN [facility] Last Admin: 06/17/18 18:18 Dose: 30 mg Docusate Sodium (Colace) 100 mg PO TID [facility] Last Admin: 06/18/18 09:45 Dose: Not Given Haloperidol Lactate (Haldol) 0.5 mg IVP Q6 PRN; Protocol PRN Reason: Agitation Last Admin: 06/18/18 03:44 Dose: 0.5 mg Heparin Sodium (Porcine) (Heparin) 5,000 units SC Q8 [facility]; Protocol Last Admin: 06/18/18 05:43 Dose: 5,000 units Hydrocortisone Sodium Succinate (Solu-Cortef) 25 mg IVP Q6H [facility] Last Admin: 06/18/18 11:48 Dose: 25 mg Dopamine HCl/Dextrose (Dopamine 400mg/250ml D5w) 400 mg in 250 mls @ 16.074 mls/hr IV .[id number] PRN; Protocol PRN Reason: TITRATE TO KEEP SBP>=100 MMHG Insulin Human Regular (Humulin R Low) 0 units SC ACHS [facility]; Protocol Last Admin: 06/18/18 11:46 Dose: 4 unit Levothyroxine Sodium (Synthroid) 12.5 mcg IVP DAILY [facility] Last Admin: 06/18/18 10:01 Dose: 12.5 mcg Lorazepam (Ativan) 2 mg IVP ONCE PRN; Protocol PRN Reason: Agitation Last Admin: 06/12/18 19:56 Dose: 2 mg Lorazepam (Ativan) 0.5 mg PO Q6 PRN; Protocol PRN Reason: Agitation Midodrine (Proamatine) 10 mg PO TID [facility] Last Admin: 06/18/18 10:02 Dose: 10 mg Mupirocin (Bactroban Ointment) 0 gm TOP BID [facility] Last Admin: 06/18/18 11:49 Dose: 1 cm2 Ondansetron HCl (Zofran Inj) 4 mg IVP Q4H PRN PRN Reason: Nausea/Vomiting Oxycodone/Acetaminophen (Percocet 5/325 Mg Tab) 1 tab PO Q6H PRN PRN Reason: Pain, severe (8-10) Stop: 06/20/18 08:07 Last Admin: 06/18/18 08:19 Dose: 1 tab Pantoprazole Sodium (Protonix Ec Tab) 40 mg PO 0600 [facility] Last Admin: 06/14/18 05:38 Dose: Not Given Pantoprazole Sodium (Protonix Inj) 40 mg IVP Q12 [facility] Last Admin: 06/18/18 10:01 Dose: 40 mg Sennosides (Senokot Tab) 17.2 mg PO HS [facility] Last Admin: 06/17/18 22:17 Dose: 17.2 mg Sevelamer HCl (Renagel) 800 mg PO TID [facility] Last Admin: 06/18/18 10:02 Dose: 800 mg Silver Sulfadiazine (Silvadene 1% 25 Gm) 1 gm TP DAILY [facility] Last Admin: 06/18/18 11:50 Dose: 1 gm Sodium Bicarbonate (Sodium Bicarbonate 8.4% (50 Meq) Syringe) 50 meq IVP ONCE PRN PRN Reason: Other Vitamin B Complex/Vit C/Folic Acid (Nephro-Jose Miguel) 1 tab PO DAILY [facility] Last Admin: 06/18/18 10:01 Dose: 1 tab - Labs Labs: 06/18/18 06:00 06/18/18 06:00 PT 18.8 SECONDS (9.4-12.5) H 06/13/18 13:00 INR 1.66 06/13/18 13:00 APTT 137.8 Seconds (26.9-38.3) H* 06/13/18 13:00 Attending/Attestation - Attestation I have personally seen and examined this patient.: Yes I have fully participated in the care of the patient.: Yes I have reviewed all pertinent clinical information, including history, physical exam and plan: Yes
[2018-06-18] MEDS: Mupirocin 2% Ointment 15 GM TUBE TOP SCH ×2 (11:49→18:07)
[2018-06-18] MEDS: Silver Sulfadiazine 1% Cream (25 gm) TP SCH (11:50)
[2018-06-18] MEDS ORDERED: DAPTOmycin 500 mg Inj (Cubicin) IVP SCH (12:15)
--- NOTE | 2018-06-18 12:21 | CP.PCM.PN ---
Subjective - Date & Time of Evaluation Date of Evaluation: 06/18/18 Time of Evaluation: 12:20 - Subjective Subjective: Nephrology Consultation Note Assessment: stable Shock ? cardiogenic/septic (GPC) Diabetic chronic Kidney Disease (E11.22) Hypertensive Chronic Kidney Disease (I12.0) End stage renal disease (N18.6) dependence on hemodialysis (Z99.2) (TTS) via AVF Anemia (D64.9), Hyperphosphatemia (E83.39), Secondary Hyperparathyroidism (E21.1), HTN (I12.0) CAD s/p CABG obesity thrombocytopenia Lytic lesions ? underlying malignancy breast cellulitis versus malignancy lactic acidosis, GI bleed RV dysfunction, moderate to severe MR Plan: Will plan for next dialysis per TTS schedule. Continue with Nephrovite 1 tab/day. PRBC as needed for anemia. defer further ADAM as concerns with malignancy. Hb 9.3 heme/onc following continue with phos binders, last phos level 3.9 PTH 547 pt off pressors. maintain hemodynamic stable.midodrine increased to 10 mg TID Glycemic control, Dialysis consistent diet Further work up/management as per primary team Dose meds/antibiotics (if needed) for ESRD status. Avoid fleets enema/magnesium based laxatives. ID following planned for cardiac cath soon Thanks for allowing me to participate in care of your patient. Will follow patient with you. Please call if any Qs. had d/w team and family Dr Amrit Malone Office: [phone] Subjective: Noted events overnight. feels well. no complaints. appears much better. talkative a lot. c/o chronic back pain off pressors Physical Examination: General Appearance: in no acute respiratory distress, better appearing comfortable pleasant Vitals reviewed and noted as below Head; Atraumatic, normocephalic ENT: no ulcers no thrush. Tongue is midline/dry. Oropharynx: no rash or ulcers. Neck; supple no lymphadenopathy, no thyromegaly or bruit Lungs: Normal respiratory rate/effort. Breath sounds bilateral equal and clear Heart: Normal rate. s1s2 normal. No rub or gallop. Extremities: no edema. No varicose veins Neurological: Patient is AMS status. mostly non communicative but more responsive Skin: Warm and dry. Normal turgor. No rash. Palpitation: Normal elasticity for age Abdomen: Abdomen is soft. Bowel sounds +. There is no abdominal tenderness, no guarding/rigidity or organomegaly Psych: limited insight. normal affect/mood MSK: no joint tenderness or swelling. Digits and nails normal, no deformity : kidney or bladder not palpable Access: AVF 06/12/18: breast examined with RN,Rt breast everardo-areolar swelling fulness ? mass, pe[place] orange appearance Labs/imaging reviewed. Past medical history, past surgical history, family history, social history, allergy reviewed and noted as below Family Hx: no hx of CKD. Non contributory Objective - Vital Signs/Intake and Output Vital Signs (last 24 hours): Temp Pulse Resp BP Pulse Ox 98.3 F 84 14 123/70 99 06/18/18 06:00 06/18/18 11:00 06/17/18 18:31 06/17/18 18:30 06/17/18 18:29 Intake and Output: 06/18/18 06/18/18 06:59 18:59 Intake Total 240 Output Total 0 Balance 240 - Medications Medications: Current Medications Acetaminophen (Tylenol 325mg Tab) 650 mg PO Q6 PRN PRN Reason: TEMP>=99.5F Last Admin: 06/11/18 12:02 Dose: 650 mg Acetaminophen (Tylenol 650 Mg Supp) 650 mg RC Q6H PRN PRN Reason: TEMP>=99.5F Acetaminophen (Tylenol 650 Mg Supp) 650 mg RC Q6H PRN PRN Reason: Headache Acetaminophen (Tylenol 325mg Tab) 650 mg PO Q6 PRN PRN Reason: Headache Last Admin: 06/16/18 16:53 Dose: 650 mg Atorvastatin Calcium (Lipitor) 80 mg PO HS [facility] Last Admin: 06/17/18 22:16 Dose: 80 mg Cinacalcet (Sensipar) 30 mg PO DIN [facility] Last Admin: 06/17/18 18:18 Dose: 30 mg Daptomycin (Cubicin) 560 mg 6 mg/kg (560 mg) IVP Q48H [facility]; Protocol Stop: 07/02/18 12:16 Docusate Sodium (Colace) 100 mg PO TID [facility] Last Admin: 06/18/18 09:45 Dose: Not Given Haloperidol Lactate (Haldol) 0.5 mg IVP Q6 PRN; Protocol PRN Reason: Agitation Last Admin: 06/18/18 03:44 Dose: 0.5 mg Heparin Sodium (Porcine) (Heparin) 5,000 units SC Q8 [facility]; Protocol Last Admin: 06/18/18 05:43 Dose: 5,000 units Hydrocortisone Sodium Succinate (Solu-Cortef) 25 mg IVP Q6H [facility] Last Admin: 06/18/18 11:48 Dose: 25 mg Dopamine HCl/Dextrose (Dopamine 400mg/250ml D5w) 400 mg in 250 mls @ 16.074 m ls/hr IV .[id number] PRN; Protocol PRN Reason: TITRATE TO KEEP SBP>=100 MMHG Aztreonam 500 mg/ Sodium (Chloride) 100 mls @ 100 mls/hr IVPB Q12H [facility]; Protocol Stop: 06/27/18 12:16 Insulin Human Regular (Humulin R Low) 0 units SC ACHS [facility]; Protocol Last Admin: 06/18/18 11:46 Dose: 4 unit Levothyroxine Sodium (Synthroid) 12.5 mcg IVP DAILY [facility] Last Admin: 06/18/18 10:01 Dose: 12.5 mcg Lorazepam (Ativan) 2 mg IVP ONCE PRN; Protocol PRN Reason: Agitation Last Admin: 06/12/18 19:56 Dose: 2 mg Lorazepam (Ativan) 0.5 mg PO Q6 PRN; Protocol PRN Reason: Agitation Metronidazole (Flagyl) 500 mg PO Q8 [facility]; Protocol Stop: 06/27/18 14:01 Midodrine (Proamatine) 10 mg PO TID [facility] Last Admin: 06/18/18 10:02 Dose: 10 mg Mupirocin (Bactroban Ointment) 0 gm TOP BID [facility] Last Admin: 06/18/18 11:49 Dose: 1 cm2 Ondansetron HCl (Zofran Inj) 4 mg IVP Q4H PRN PRN Reason: Nausea/Vomiting Oxycodone/Acetaminophen (Percocet 5/325 Mg Tab) 1 tab PO Q6H PRN PRN Reason: Pain, severe (8-10) Stop: 06/20/18 08:07 Last Admin: 06/18/18 08:19 Dose: 1 tab Pantoprazole Sodium (Protonix Ec Tab) 40 mg PO 0600 [facility] Last Admin: 06/14/18 05:38 Dose: Not Given Pantoprazole Sodium (Protonix Inj) 40 mg IVP Q12 [facility] Last Admin: 06/18/18 10:01 Dose: 40 mg Sennosides (Senokot Tab) 17.2 mg PO HS [facility] Last Admin: 06/17/18 22:17 Dose: 17.2 mg Sevelamer HCl (Renagel) 800 mg PO TID [facility] Last Admin: 06/18/18 10:02 Dose: 800 mg Silver Sulfadiazine (Silvadene 1% 25 Gm) 1 gm TP DAILY [facility] Last Admin: 06/18/18 11:50 Dose: 1 gm Sodium Bicarbonate (Sodium Bicarbonate 8.4% (50 Meq) Syringe) 50 meq IVP ONCE PRN PRN Reason: Other Vitamin B Complex/Vit C/Folic Acid (Nephro-Jose Miguel) 1 tab PO DAILY [facility] Last Admin: 06/18/18 10:01 Dose: 1 tab - Labs Labs: 06/18/18 06:00 06/18/18 06:00 PT 18.8 SECONDS (9.4-12.5) H 06/13/18 13:00 INR 1.66 06/13/18 13:00 APTT 137.8 Seconds (26.9-38.3) H* 06/13/18 13:00
--- NOTE | 2018-06-18 12:45 | CP.PCM.PN ---
Subjective - Date & Time of Evaluation Date of Evaluation: 06/18/18 Time of Evaluation: 07:30 - Subjective Subjective: Pt seen and examined on rounds, no major complaints. Objective - Vital Signs/Intake and Output Vital Signs (last 24 hours): Temp Pulse Resp BP Pulse Ox 98.3 F 84 14 123/70 99 06/18/18 06:00 06/18/18 11:00 06/17/18 18:31 06/17/18 18:30 06/17/18 18:29 Intake and Output: 06/18/18 06/18/18 06:59 18:59 Intake Total 240 Output Total 0 Balance 240 - Medications Medications: Current Medications Acetaminophen (Tylenol 325mg Tab) 650 mg PO Q6 PRN PRN Reason: TEMP>=99.5F Last Admin: 06/11/18 12:02 Dose: 650 mg Acetaminophen (Tylenol 650 Mg Supp) 650 mg RC Q6H PRN PRN Reason: TEMP>=99.5F Acetaminophen (Tylenol 650 Mg Supp) 650 mg RC Q6H PRN PRN Reason: Headache Acetaminophen (Tylenol 325mg Tab) 650 mg PO Q6 PRN PRN Reason: Headache Last Admin: 06/16/18 16:53 Dose: 650 mg Atorvastatin Calcium (Lipitor) 80 mg PO HS [facility] Last Admin: 06/17/18 22:16 Dose: 80 mg Cinacalcet (Sensipar) 30 mg PO DIN [facility] Last Admin: 06/17/18 18:18 Dose: 30 mg Docusate Sodium (Colace) 100 mg PO TID [facility] Last Admin: 06/18/18 09:45 Dose: Not Given Haloperidol Lactate (Haldol) 0.5 mg IVP Q6 PRN; Protocol PRN Reason: Agitation Last Admin: 06/18/18 03:44 Dose: 0.5 mg Heparin Sodium (Porcine) (Heparin) 5,000 units SC Q8 [facility]; Protocol Last Admin: 06/18/18 05:43 Dose: 5,000 units Hydrocortisone Sodium Succinate (Solu-Cortef) 25 mg IVP Q6H [facility] Last Admin: 06/18/18 11:48 Dose: 25 mg Dopamine HCl/Dextrose (Dopamine 400mg/250ml D5w) 400 mg in 250 mls @ 16.074 mls/hr IV .[id number] PRN; Protocol PRN Reason: TITRATE TO KEEP SBP>=100 MMHG Aztreonam 500 mg/ Sodium (Chloride) 100 mls @ 100 mls/hr IVPB Q12H [facility]; Protocol Stop: 06/27/18 12:16 Daptomycin 560 mg/ Sodium (Chloride) 100 mls @ 200 mls/hr IV Q48H [facility] Stop: 07/02/18 12:31 Insulin Human Regular (Humulin R Low) 0 units SC ACHS [facility]; Protocol Last Admin: 06/18/18 11:46 Dose: 4 unit Levothyroxine Sodium (Synthroid) 12.5 mcg IVP DAILY [facility] Last Admin: 06/18/18 10:01 Dose: 12.5 mcg Lorazepam (Ativan) 2 mg IVP ONCE PRN; Protocol PRN Reason: Agitation Last Admin: 06/12/18 19:56 Dose: 2 mg Lorazepam (Ativan) 0.5 mg PO Q6 PRN; Protocol PRN Reason: Agitation Metronidazole (Flagyl) 500 mg PO Q8 [facility]; Protocol Stop: 06/27/18 14:01 Midodrine (Proamatine) 10 mg PO TID [facility] Last Admin: 06/18/18 10:02 Dose: 10 mg Mupirocin (Bactroban Ointment) 0 gm TOP BID [facility] Last Admin: 06/18/18 11:49 Dose: 1 cm2 Ondansetron HCl (Zofran Inj) 4 mg IVP Q4H PRN PRN Reason: Nausea/Vomiting Oxycodone/Acetaminophen (Percocet 5/325 Mg Tab) 1 tab PO Q6H PRN PRN Reason: Pain, severe (8-10) Stop: 06/20/18 08:07 Last Admin: 06/18/18 08:19 Dose: 1 tab Pantoprazole Sodium (Protonix Inj) 40 mg IVP Q12 [facility] Last Admin: 06/18/18 10:01 Dose: 40 mg Sennosides (Senokot Tab) 17.2 mg PO HS [facility] Last Admin: 06/17/18 22:17 Dose: 17.2 mg Sevelamer HCl (Renagel) 800 mg PO TID [facility] Last Admin: 06/18/18 10:02 Dose: 800 mg Silver Sulfadiazine (Silvadene 1% 25 Gm) 1 gm TP DAILY [facility] Last Admin: 06/18/18 11:50 Dose: 1 gm Sodium Bicarbonate (Sodium Bicarbonate 8.4% (50 Meq) Syringe) 50 meq IVP ONCE PRN PRN Reason: Other Vitamin B Complex/Vit C/Folic Acid (Nephro-Jose Miguel) 1 tab PO DAILY [facility] Last Admin: 06/18/18 10:01 Dose: 1 tab - Labs Labs: 06/18/18 06:00 06/18/18 06:00 PT 18.8 SECONDS (9.4-12.5) H 06/13/18 13:00 INR 1.66 06/13/18 13:00 APTT 137.8 Seconds (26.9-38.3) H* 06/13/18 13:00 - Constitutional Appears: Non-toxic, No Acute Distress, Older Than Stated Age, Chronically Ill - Head Exam Head Exam: NORMAL INSPECTION - Eye Exam Eye Exam: Normal appearance - ENT Exam ENT Exam: Mucous Membranes Moist - Respiratory Exam Respiratory Exam: Clear to Ausculation Bilateral, NORMAL BREATHING PATTERN - Cardiovascular Exam Cardiovascular Exam: REGULAR RHYTHM, +S1, +S2 - GI/Abdominal Exam GI & Abdominal Exam: Soft, Normal Bowel Sounds - Extremities Exam Extremities Exam: Normal Inspection - Neurological Exam Neurological Exam: Alert, Awake, Oriented x3 - Psychiatric Exam Psychiatric exam: Normal Mood - Skin Skin Exam: Normal Color, Warm Assessment and Plan - Assessment and Plan (Free Text) Assessment: Patient is 67yo female with PMHx AD s/p CABG and 5 stents, ESRD on HD T//, HTN, hypothyroidism and DM admitted to MICU with obstructive shock, severely dilated RV, currently only OFF ALL vasopressor support for >48hrs now. AAOx3, NAD Cardiology following, possible Cath tuesday V/Q scan negative for PE Right heart failure Dilated RV ESRD on HD CAD s/p CABG HTN HYpothyroidism DM Recommend: - supp o2 as needed, duonebs PRN, BIPAP at night - ABx as per ID - HD as per renal - FS control - Follow up GI - monitor HH - GI ppx - DVT ppx, SCDs - monitor in MICU
--- NOTE | 2018-06-18 13:52 | PN ---
DATE: 06/18/2018 SUBJECTIVE: The patient is in bed, was seen earlier today in the ICU 128, bed 5. She had no fevers and no chills. Uneventful. She is complaining of pain everywhere. PHYSICAL EXAMINATION: VITAL SIGNS: Temperature is 98, blood pressure is 120/70, respiratory rate of 18. HEENT: Unremarkable. NECK: Supple. LUNGS: Have decreased breath sounds. HEART: Normal S1, S2. ABDOMEN: Soft. LABORATORY EXAMINATION: Reveals a white count of 8.8, hemoglobin of 9, platelets of 80. Chemistries reveals a BUN of 27, creatinine of 3.0 and HIV is negative and hepatitis C antigen is negative. Hepatitis B core IgM is negative. Hepatitis B surface antibody is positive. Review of orders reveals the patient to be on vancomycin one dose. Microbiology reveals the foot culture is coag-negative Staph. ASSESSMENT AND PLAN: This is a 67-year-old female seen earlier in the ICU 128, bed 5 with status post hypotension due to right-sided heart failure and possible gastrointestinal bleeding with a coag-negative Staphylococcus. Repeat blood cultures negative, coag-negative Staphylococcus bacteremia with a repeat blood cultures negative, although the left foot cultures also coag-negative Staphylococcus. Currently, on an intermittent vancomycin and in a patient who has creatinine of 3 and with right breast cellulitis, although it is marked as right foot in the cultures. The patient had an echo in 06/12/2018 to which no evidence of vegetations are seen. It was read by Dr. Barnes. No evidence of a prolapse and mitral valve. No evidence of tricuspid vegetations with a coag-negative Staphylococcus bacteremia. On daptomycin, Azactam and Flagyl. Review of orders reveals the patient's antibiotics has been discontinued by pharmacy. We will restart daptomycin, Azactam, and Flagyl. Currently, the patient is off of antibiotics. No antibiotics are noted on the orders. As per microbiology, repeat blood cultures are negative from the 06/13/2018 and 06/14/2018 which would make this only the fourth day of antibiotics. We will follow with you. Bill Whitt MD
[2018-06-19 06:46] LABS: HEMOGLOBIN 9.5 g/dL (12.0-16.0); LYMPH # 0.4 (1.2-3.4); LYMPH % 4.2 % (22.0-35.0); MEAN CORPUSCULAR HEMOGLOBIN 30.1 pg (25.0-35.0); MEAN PLATELET VOLUME 9.9 fl (7.0-11.0); MONO # 0.3 (0.1-0.6); MONO % 3.2 % (1.0-6.0); RBC 3.16 10^6/uL (3.5-6.1); RED CELL DISTRIBUTION WIDTH 18.6 % (11.5-14.5); WHITE BLOOD COUNT 10.6 10^3/uL (4.5-11.0)
[2018-06-19 07:04] LABS: ALBUMIN 3.6 g/dL (3.0-4.8); BILIRUBIN,DIRECT 1.3 mg/dL (0.0-0.4); CALCIUM 7.2 mg/dL (8.4-10.5)
--- NOTE | 2018-06-19 08:36 | CP.PCM.PCO ---
Physician Communication Note - Physician Communication Note Physician Communication Note: psych signed off
[2018-06-19] MEDS: Insulin Reg-LOW-Coverage SC SCH ×5 (09:18→21:46)
[2018-06-19] MEDS: Multivitamin Vitamin B Complex (Nephro-Vite) Tab PO SCH (09:25)
[2018-06-19] MEDS: Levothyroxine 100 mcg (0.1 mg) Inj IVP SCH (09:26)
[2018-06-19] MEDS: Oxycodone/Acetaminophen 5/325 mg Tab PO PRN ×3 (10:26→21:23)
--- NOTE | 2018-06-19 11:01 | PN ---
DATE: 06/18/2018 SUBJECTIVE: The patient is seen lying in the bed in ICU, bed 5. The patient's son Eugenio, is at bedside. The patient is totally alert, awake, responsive, oriented to person, place. Able to answer her name, able to answer her son's name. Able to state where she is, able to follow simple commands. PHYSICAL EXAMINATION VITAL SIGNS: T-max 98.3; telemetry shows a normal sinus rhythm, heart rate 84, 91, 85 and 79; respiratory rate 14, 13 and 18; last blood pressure documented is more than 18 hours ago which is from yesterday, June 17, 2018 at 6:30, blood pressure 123/70, 125/56 and presently on telemetry, the patient's blood pressures 124/70 and last documented O2 sat is from June 17, 2018 at 06:30 p.m. is 99%. HEENT: Head examination normocephalic and atraumatic. HEENT examination shows pinkish pale conjunctivae. Anicteric sclerae. No oropharyngeal lesion. No neck rigidity. Positive right neck internal jugular triple-lumen noted. CHEST: Kyphosis. LUNGS: Shows decreased breath sound at the bases. CARDIOVASCULAR: S1 and S2. Positive systolic murmur left sternal border, right second intercostal space, left second intercostal space. ABDOMEN: Soft and protuberant. Positive bowel sound. GENITALIA: Female. RECTAL: Examination is deferred. EXTREMITIES: Positive left upper extremity AV fistula. Positive median sternotomy surgical scar. Positive left upper chest pacemaker. Lower extremity shows dressing of the right foot and dressing of the left foot. MUSCULOSKELETAL: Examination shows a body mass index of 34. NEUROLOGICALLY: As dictated above, the patient is able to follow commands, move upper lower extremity without assistance. Gait examination is not tested. LABORATORY DATA: Diagnostics on June 18, 2018, WBC 8.8, hemoglobin/hematocrit 9.3 and 28 with platelet 80,000. Granulocytes 91% segs. The manual platelet count pending. Sodium 137, potassium 3.4, chloride 98, CO2 of 25, anion gap 17, BUN 27, creatinine 3.0, GFR 19, glucose 217, lactic acid 1.0, calcium 7.3, phosphorus 3.9, magnesium 2.1, total bili 1.4, direct bili 1.2 and AST 43. Stool occult blood is positive. Serum immunofixation none detected. Hepatitis B surface antibody is positive, hepatitis B e-antigen is negative. HIV is negative. Right foot cultures, coagulase-negative Staphylococcus and left foot cultures Staphylococcus epidermidis. Blood cultures from June 12, 2018 coagulase-negative Staphylococcus. The patient received 1 unit of PRBC. IMPRESSION: 1. Possible septic versus cardiogenic versus hypotensive shock. 2. Coagulase-negative Staphylococcus aureus bacteremia. 3. Staphylococcus epidermidis left foot diabetic ulceration. 4. Coagulase-negative Staphylococcus aureus, right foot diabetic ulceration. 5. Hypotension. 6. Tachycardia. 7. Hypotensive hypovolemic shock. 8. Cardiogenic versus septic shock. 9. Tachypnea. 10. Leukocytosis with granulocytosis. 11. Bandemia. 12. Elevated erythrocyte sedimentation rate of 38. 13. Elevated reticulocyte count. 14. Granulocytosis with the bandemia. 15. Iatrogenic coagulopathy with hypofibrinogenemia. 16. Hypoxemia. 17. Lactic acidosis. 18. Increased anion gap metabolic acidosis and lactic acidosis. 19. Status post non-hemolyzed hyperkalemia. 20. End-stage renal disease, hemodialysis dependent three times a week. 21. Hyperphosphatemia with secondary hyperparathyroidism. 22. Hyperbilirubinemia. 23. Transaminitis. 24. Acute non-ST elevation myocardial infarction with elevated troponin and cardiogenic and septic shock. 25. Hypothyroidism. 26. Secondary hyperparathyroidism with elevated PTH level of 547. 27. Uncontrolled diabetes mellitus with elevated fructosamine level of 477. 28. Elevated C-reactive protein of greater than 15. 29. Hypothyroidism. 30. Questionable iron deficiency. 31. Possible iron-deficiency anemia of the chronic kidney disease. 32. Questionable upper gastrointestinal bleeding with hematemesis. 33. Fecal occult blood positive. 34. Elevated free kappa light chain and elevated free lambda light chain levels. 35. Coagulase-negative Staphylococcus aureus right foot diabetic foot ulceration and Staphylococcus epidermidis in his left foot diabetic ulceration. 36. Coagulase-negative Staphylococcus aureus bacteremia and sepsis. 37. Status post packed red blood cell transfusion x1. 38. Bilateral foot diabetic ulceration. 39. Right fifth digit laceration. 40. Advanced degenerative joint disease of the feet with osteopenia. 41. Status post non-ST elevation myocardial infarction. 42. Right breast cellulitis versus right breast peau d'orange. 43. Coronary artery disease with coronary artery bypass graft. 44. Status post pacemaker implant. 45. Right-sided diastolic congestive heart failure with dilated right ventricle and decreased right ventricular systolic function. 46. Adjustment disorder with anxiety and mood disorder versus delirium. 47. Episodic confusion and disorientation. 48. 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 49. Bilateral basal ganglia chronic lacunar infarct. 50. Calvarium lucencies, questionable metastasis versus multiple myeloma. 51. Cardiomegaly. 52. Pulmonary venous congestion. 53. History of coronary artery angioplasty. 54. Elevated right hemidiaphragm. 55. Paroxysmal atrial fibrillation. 56. Concentric left ventricular hypertrophy with grade 2 pseudo normal filling dynamics. 57. Severely dilated right ventricle with moderately reduced right ventricular systolic function. 58. Trace aortic regurgitation. 59. Mitral and aortic valve thickening. 60. Mitral annular calcification. 61. Moderate to severe mitral regurgitation. 62. Severe tricuspid regurgitation with severe underestimating of the right ventricular systolic pressure. 63. Left ventricular hypertrophy with left ventricle ejection fraction of 60% to 65%. 64. Gait dysfunction. 65. Deconditioning. 66. Morbid obesity with elevated body mass index of 34. 67. Right bundle-branch block with left anterior hemiblock. 68. Paroxysmal atrial fibrillation with right bundle-branch block. 69. Age indeterminate anterolateral inferior infarct. 70. Bifascicular block with first degree atrioventricular block, right bundle-branch block, left anterior hemiblock and anterolateral inferior coronary ischemic changes. 71. Thrombocytopenia. 72. Anemia. 73. Insulin-requiring diabetes mellitus. PLAN: At this time, the patient has been ordered out of bed to chair. The patient has been currently on repeat labs for the morning. The patient's current consultation Cardiology, Gastroenterology, Hematology/Oncology, Infectious Disease, Nephrology, Neurology, Podiatry and Psychiatry. Current medications; Ativan 2 mg IV every 6 p.r.n., Azactam 500 IV every 12 hours, Bactroban cream to the affected area twice a day, Colace 100 mg three times a day, Cubicin 560 mg IV every 48 hours, Flagyl 500 mg p.o. every 8 hours, Haldol 0.5 mg IV every 6 hours p.r.n., heparin 5000 subcutaneously every 8 hours, Humulin low-dose sliding scale coverage a.c. and at bedtime, Lipitor 80 mg daily, Nephro-Jose Miguel 1 tablet daily, Percocet 5/325 one tablet every 6 hours p.r.n., ProAmatine 10 mg three times a day and Protonix 40 mg daily. The patient is on Renagel 800 mg three times a day, Senokot 17.2 mg at bedtime, Sensipar 30 mg daily, Silvadene cream to the affected area, Solu-Cortef ordered by the ICU residents 25 mg IV every 6 hours, Synthroid 12.5 mcg IV daily, Tylenol p.r.n., vancomycin 2.5 g was given x1 yesterday by the Infectious Disease and Zofran 4 mg IV every 4 hours p.r.n. Bilateral breast ultrasound is pending. Spirometry ordered. The patient started on pureed dysphagia modified consistency diet. The patient was found to have moderate oropharyngeal dysphagia with [id number] risk for aspiration. At present, the patient's condition, diagnosis, overall guarded to prognosis was discussed and explained to the patient's son, Eugenio, who was present at the bedside. I have explained to the patient's son about all the details, all the diagnostic test results, all the relevant information about the patient's condition and overall guarded to poor prognosis was explained, the patient's son understands the patient's overall guarded to poor prognosis and critical condition. Time spent 35 minutes. Dictated and electronically signed, not read. Signing off Jimy Simeon MD. Jimy Simeon MD
--- NOTE | 2018-06-19 11:01 | CP.PCM.PCO ---
Addendum Addendum: 06/19/18 10:59 psychiatric team signed off medical team asked to reconsult, the reason is Haldol discontinuation discussed with medical information specialist Dr.Brooks avilez reviewed, pt was getting Haldol as needed only 0.5mg daily will d/c Haldol [place] tart seroquel 12.5mg po hs prn for agitation/psychosis due to a high volume of consultations, will evaluate pt tomorrow treatment plan was discussed in details for medical information specialist. will follow up 06/19/18
--- NOTE | 2018-06-19 11:13 | CP.PCM.PN ---
Subjective - Date & Time of Evaluation Date of Evaluation: 06/19/18 Time of Evaluation: 11:12 - Subjective Subjective: Nephrology Consultation Note Assessment: stable Shock ? cardiogenic/septic (GPC) Diabetic chronic Kidney Disease (E11.22) Hypertensive Chronic Kidney Disease (I12.0) End stage renal disease (N18.6) dependence on hemodialysis (Z99.2) (TTS) via AVF Anemia (D64.9), Hyperphosphatemia (E83.39), Secondary Hyperparathyroidism (E21.1), HTN (I12.0) CAD s/p CABG obesity thrombocytopenia Lytic lesions ? underlying malignancy breast cellulitis versus malignancy lactic acidosis, GI bleed RV dysfunction, moderate to severe MR Plan: Will plan for next dialysis per TTS schedule. Continue with Nephrovite 1 tab/day. PRBC as needed for anemia. defer further ADAM as concerns with malignancy. Hb 9.5 heme/onc following continue with phos binders, last phos level 3.8 PTH 547 pt off pressors. maintain hemodynamic stable.midodrine increased to 10 mg TID Glycemic control, Dialysis consistent diet Further work up/management as per primary team Dose meds/antibiotics (if needed) for ESRD status. Avoid fleets enema/magnesium based laxatives. ID following plan for cardiac cath per cardiology. overall stable from renal perspective. Thanks for allowing me to participate in care of your patient. Will follow patient with you. Please call if any Qs. had d/w team and family Dr Amrit Malone Office: [phone] Subjective: Noted events overnight. feels well. no complaints. appears much better. talkative a lot. c/o chronic back pain off pressors Physical Examination: General Appearance: in no acute respiratory distress, better appearing comfortable pleasant Vitals reviewed and noted as below Head; Atraumatic, normocephalic ENT: no ulcers no thrush. Tongue is midline/dry. Oropharynx: no rash or ulcers. Neck; supple no lymphadenopathy, no thyromegaly or bruit Lungs: Normal respiratory rate/effort. Breath sounds bilateral equal and clear Heart: Normal rate. s1s2 normal. No rub or gallop. Extremities: no Rt edema. No varicose veins. has chronic left leg edema Neurological: Patient is AMS status. mostly non communicative but more responsive Skin: Warm and dry. Normal turgor. No rash. Palpitation: Normal elasticity for age Abdomen: Abdomen is soft. Bowel sounds +. There is no abdominal tenderness, no guarding/rigidity or organomegaly Psych: limited insight. normal affect/mood MSK: no joint tenderness or swelling. Digits and nails normal, no deformity : kidney or bladder not palpable Access: AVF 06/12/18: breast examined with RN,Rt breast everardo-areolar swelling fulness ? mass, peau du orange appearance Labs/imaging reviewed. Past medical history, past surgical history, family history, social history, allergy reviewed and noted as below Family Hx: no hx of CKD. Non contributory Objective - Vital Signs/Intake and Output Vital Signs (last 24 hours): Temp Pulse Resp BP Pulse Ox 97.3 F L 88 22 119/77 100 06/19/18 06:00 06/19/18 06:00 06/19/18 00:01 06/18/18 16:00 06/19/18 00:01 Intake and Output: 06/19/18 06/19/18 06:59 18:59 Intake Total 1000 Output Total 400 Balance 600 - Medications Medications: Current Medications Acetaminophen (Tylenol 325mg Tab) 650 mg PO Q6 PRN PRN Reason: TEMP>=99.5F Last Admin: 06/11/18 12:02 Dose: 650 mg Acetaminophen (Tylenol 650 Mg Supp) 650 mg RC Q6H PRN PRN Reason: TEMP>=99.5F Acetaminophen (Tylenol 650 Mg Supp) 650 mg RC Q6H PRN PRN Reason: Headache Acetaminophen (Tylenol 325mg Tab) 650 mg PO Q6 PRN PRN Reason: Headache Last Admin: 06/16/18 16:53 Dose: 650 mg Atorvastatin Calcium (Lipitor) 80 mg PO HS [facility] Last Admin: 06/18/18 22:46 Dose: 80 mg Cinacalcet (Sensipar) 30 mg PO DIN [facility] Last Admin: 06/18/18 16:33 Dose: 30 mg Docusate Sodium (Colace) 100 mg PO TID [facility] Last Admin: 06/19/18 09:26 Dose: 100 mg Heparin Sodium (Porcine) (Heparin) 5,000 units SC Q8 [facility]; Protocol Last Admin: 06/19/18 05:02 Dose: Not Given Hydrocortisone Sodium Succinate (Solu-Cortef) 25 mg IVP Q6H [facility] Last Admin: 06/19/18 06:35 Dose: 25 mg Dopamine HCl/Dextrose (Dopamine 400mg/250ml D5w) 400 mg in 250 mls @ 16.074 mls/hr IV .[id number] PRN; Protocol PRN Reason: TITRATE TO KEEP SBP>=100 MMHG Aztreonam 500 mg/ Sodium (Chloride) 100 mls @ 100 mls/hr IVPB Q12H [facility]; Protocol Stop: 06/27/18 12:16 Last Admin: 06/19/18 00:00 Dose: 100 mls/hr Daptomycin 560 mg/ Sodium (Chloride) 100 mls @ 200 mls/hr IV Q48H [facility] Stop: 07/02/18 12:31 Last Admin: 06/18/18 13:40 Dose: 200 mls/hr Insulin Human Regular (Humulin R Low) 0 units SC ACHS [facility]; Protocol Last Admin: 06/19/18 09:18 Dose: Not Given Levothyroxine Sodium (Synthroid) 12.5 mcg IVP DAILY [facility] Last Admin: 06/19/18 09:26 Dose: 12.5 mcg Lorazepam (Ativan) 2 mg IVP ONCE PRN; Protocol PRN Reason: Agitation Last Admin: 06/12/18 19:56 Dose: 2 mg Lorazepam (Ativan) 0.5 mg PO Q6 PRN; Protocol PRN Reason: Agitation Metronidazole (Flagyl) 500 mg PO Q8 [facility]; Protocol Stop: 06/27/18 14:01 Last Admin: 06/19/18 06:36 Dose: 500 mg Midodrine (Proamatine) 10 mg PO TID [facility] Last Admin: 06/19/18 09:23 Dose: 10 mg Mupirocin (Bactroban Ointment) 0 gm TOP BID [facility] Last Admin: 06/18/18 18:07 Dose: 1 cm2 Ondansetron HCl (Zofran Inj) 4 mg IVP Q4H PRN PRN Reason: Nausea/Vomiting Oxycodone/Acetaminophen (Percocet 5/325 Mg Tab) 1 tab PO Q6H PRN PRN Reason: Pain, severe (8-10) Stop: 06/20/18 08:07 Last Admin: 06/19/18 10:26 Dose: 1 tab Pantoprazole Sodium (Protonix Inj) 40 mg IVP Q12 [facility] Last Admin: 06/19/18 09:26 Dose: 40 mg Quetiapine Fumarate (Seroquel) 12.5 mg PO HS PRN; Protocol PRN Reason: agiation/psychosis Sennosides (Senokot Tab) 17.2 mg PO HS [facility] Last Admin: 06/18/18 22:46 Dose: 17.2 mg Sevelamer HCl (Renagel) 800 mg PO TID [facility] Last Admin: 06/19/18 09:24 Dose: 800 mg Silver Sulfadiazine (Silvadene 1% 25 Gm) 1 gm TP DAILY [facility] Last Admin: 06/18/18 11:50 Dose: 1 gm Sodium Bicarbonate (Sodium Bicarbonate 8.4% (50 Meq) Syringe) 50 meq IVP ONCE PRN PRN Reason: Other Vitamin B Complex/Vit C/Folic Acid (Nephro-Jose Miguel) 1 tab PO DAILY [facility] Last Admin: 06/19/18 09:25 Dose: 1 tab - Labs Labs: 06/19/18 06:30 06/19/18 06:30 PT 18.8 SECONDS (9.4-12.5) H 06/13/18 13:00 INR 1.66 06/13/18 13:00 APTT 137.8 Seconds (26.9-38.3) H* 06/13/18 13:00
--- NOTE | 2018-06-19 11:16 | PN ---
DATE: 06/19/2018 CARDIOLOGY FOLLOWUP SUBJECTIVE: The patient's plan cardiac catheterization was cancelled today because the patient had heme-positive stools reported on the chart. In addition, the patient became mildly agitated and was given Haldol yesterday. Currently, the patient is without distress. OBJECTIVE: VITAL SIGNS: Stable. NECK: Negative JVD. LUNGS: Decreased breath sounds. HEART: Reveal S1, S2. EXTREMITIES: Without change. LABORATORY DATA: Hemoglobin is 9.5. Chemistries; BUN and creatinine 36 and 4.2, glucose 229. IMPRESSION: 1. Confusion and agitation last night. 2. Heme-positive stools. 3. Renal insufficiency. 4. Non-ST elevation myocardial infarction. 5. Transient hypotension. 6. Diabetes mellitus. Given these findings, we will follow her hemoglobin. The cardiac catheterization was cancelled for today. Chan Berman MD
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
--- NOTE | 2018-06-19 12:46 | PN ---
DATE: 06/19/2018 SUBJECTIVE: The patient is sitting in a chair. She is awake, alert, comfortable. She denies any chest pain, nausea, vomiting, hematemesis or rectal bleeding. OBJECTIVE: VITAL SIGNS: Reveal temperature of 97.3, blood pressure 119/77, heart rate of 80. HEENT: Reveal sclerae to be white. Conjunctivae pink. NECK: Supple. CHEST: Lungs are clear. HEART: Reveals regular rate and rhythm. ABDOMEN: Soft, nontender, obese. No mass. EXTREMITIES: Show trace pedal edema. LABORATORY DATA: Reveal BUN 32, creatinine 4.2. CBC reveals hemoglobin 9.5, white blood cell count 10.6, platelet count of 104,000. Her hemoglobin has been stable over the last 72 hours. IMPRESSION AND PLAN: A 67-year-old female with known coronary artery disease, status post placement of multiple coronary stents, status post coronary artery bypass grafting, end-stage renal disease on hemodialysis admitted to the hospital with altered mental status and found to have positive troponins. She is found to have heme-positive stool, I suspect that this is old blood from her coffee-ground emesis, which has resolved. Her hemoglobin has remained stable and in fact has been increasing steadily over the last several days. There is no evidence of active GI bleeding at this time. Recommendations are to follow serial hematocrits, especially if the patient is going to be anticoagulated or started on antiplatelets. She is at risk for GI bleeding. 2. The patient is to have cardiac catheterization. Angelito Terry MD
--- NOTE | 2018-06-19 12:48 | CP.PCM.PN ---
Subjective - Date & Time of Evaluation Date of Evaluation: 06/19/18 Time of Evaluation: 11:00 - Subjective Subjective: Patient is awake and alert, less pain the right breast, no fevers, no nausea. Objective - Vital Signs/Intake and Output Vital Signs (last 24 hours): Temp Pulse Resp BP Pulse Ox 97.3 F L 88 22 119/77 100 06/19/18 06:00 06/19/18 06:00 06/19/18 00:01 06/18/18 16:00 06/19/18 00:01 Intake and Output: 06/19/18 06/19/18 06:59 18:59 Intake Total 1000 Output Total 400 Balance 600 - Medications Medications: Current Medications Acetaminophen (Tylenol 325mg Tab) 650 mg PO Q6 PRN PRN Reason: TEMP>=99.5F Last Admin: 06/11/18 12:02 Dose: 650 mg Acetaminophen (Tylenol 650 Mg Supp) 650 mg RC Q6H PRN PRN Reason: TEMP>=99.5F Acetaminophen (Tylenol 650 Mg Supp) 650 mg RC Q6H PRN PRN Reason: Headache Acetaminophen (Tylenol 325mg Tab) 650 mg PO Q6 PRN PRN Reason: Headache Last Admin: 06/16/18 16:53 Dose: 650 mg Atorvastatin Calcium (Lipitor) 80 mg PO HS [facility] Last Admin: 06/18/18 22:46 Dose: 80 mg Cinacalcet (Sensipar) 30 mg PO DIN [facility] Last Admin: 06/18/18 16:33 Dose: 30 mg Docusate Sodium (Colace) 100 mg PO TID [facility] Last Admin: 06/19/18 09:26 Dose: 100 mg Heparin Sodium (Porcine) (Heparin) 5,000 units SC Q8 [facility]; Protocol Last Admin: 06/19/18 05:02 Dose: Not Given Hydrocortisone Sodium Succinate (Solu-Cortef) 25 mg IVP DAILY [facility] Dopamine HCl/Dextrose (Dopamine 400mg/250ml D5w) 400 mg in 250 mls @ 16.074 mls/hr IV .[id number] PRN; Protocol PRN Reason: TITRATE TO KEEP SBP>=100 MMHG Aztreonam 500 mg/ Sodium (Chloride) 100 mls @ 100 mls/hr IVPB Q12H [facility]; Protocol Stop: 06/27/18 12:16 Last Admin: 06/19/18 11:50 Dose: 100 mls/hr Daptomycin 560 mg/ Sodium (Chloride) 100 mls @ 200 mls/hr IV Q48H [facility] Stop: 07/02/18 12:31 Last Admin: 06/18/18 13:40 Dose: 200 mls/hr Insulin Human Regular (Humulin R Low) 0 units SC ACHS [facility]; Protocol Last Admin: 06/19/18 12:01 Dose: 4 unit Levothyroxine Sodium (Synthroid) 12.5 mcg IVP DAILY [facility] Last Admin: 06/19/18 09:26 Dose: 12.5 mcg Lorazepam (Ativan) 2 mg IVP ONCE PRN; Protocol PRN Reason: Agitation Last Admin: 06/12/18 19:56 Dose: 2 mg Lorazepam (Ativan) 0.5 mg PO Q6 PRN; Protocol PRN Reason: Agitation Metronidazole (Flagyl) 500 mg PO Q8 [facility]; Protocol Stop: 06/27/18 14:01 Last Admin: 06/19/18 06:36 Dose: 500 mg Midodrine (Proamatine) 10 mg PO TID [facility] Last Admin: 06/19/18 09:23 Dose: 10 mg Mupirocin (Bactroban Ointment) 0 gm TOP BID [facility] Last Admin: 06/18/18 18:07 Dose: 1 cm2 Ondansetron HCl (Zofran Inj) 4 mg IVP Q4H PRN PRN Reason: Nausea/Vomiting Oxycodone/Acetaminophen (Percocet 5/325 Mg Tab) 1 tab PO Q6H PRN PRN Reason: Pain, severe (8-10) Stop: 06/20/18 08:07 Last Admin: 06/19/18 10:26 Dose: 1 tab Pantoprazole Sodium (Protonix Inj) 40 mg IVP Q12 [facility] Last Admin: 06/19/18 09:26 Dose: 40 mg Quetiapine Fumarate (Seroquel) 12.5 mg PO HS PRN; Protocol PRN Reason: agiation/psychosis Sennosides (Senokot Tab) 17.2 mg PO HS [facility] Last Admin: 06/18/18 22:46 Dose: 17.2 mg Sevelamer HCl (Renagel) 800 mg PO TID [facility] Last Admin: 06/19/18 09:24 Dose: 800 mg Silver Sulfadiazine (Silvadene 1% 25 Gm) 1 gm TP DAILY [facility] Last Admin: 06/18/18 11:50 Dose: 1 gm Sodium Bicarbonate (Sodium Bicarbonate 8.4% (50 Meq) Syringe) 50 meq IVP ONCE PRN PRN Reason: Other Vitamin B Complex/Vit C/Folic Acid (Nephro-Jose Miguel) 1 tab PO DAILY [facility] Last Admin: 06/19/18 09:25 Dose: 1 tab - Labs Labs: 06/19/18 06:30 06/19/18 06:30 PT 18.8 SECONDS (9.4-12.5) H 06/13/18 13:00 INR 1.66 06/13/18 13:00 APTT 137.8 Seconds (26.9-38.3) H* 06/13/18 13:00 - Constitutional Appears: Chronically Ill - Head Exam Head Exam: NORMAL INSPECTION - Respiratory Exam Respiratory Exam: Decreased Breath Sounds - Cardiovascular Exam Cardiovascular Exam: +S1, +S2 - GI/Abdominal Exam GI & Abdominal Exam: Soft. absent: Tenderness Assessment and Plan - Assessment and Plan (Free Text) Plan: Assessment S/P Hypotension, consider due to right sided heart failure, consider GI bleeding coagulase negative staph bacteremia, source not clear right breast cellulitis, slowly improving obesity with BMI 31 ESRD on HD hypothyroidism DM dyslipidemia CAD S/P CABG S/P foot surgery Plan continue Azactam, Flagyl, and Daptomycin to Vancomycin with HD day 7 (from first negative blood cx which is 06/13/2018); blood cx showing CoNS from 06/12 - source is not clear, 2D echo on 06/12 was not specific for vegetations, repeat blood cx negative - target 10 days of therapy will continue to monitor clinically prognosis is guarded follow up further ICU work up for possible GI bleeding follow up plans for Cardiac cath
[2018-06-19 13:03] LABS: INR 1.49; PARTIAL THROMBOPLASTIN TIME 28.7 Seconds (26.9-38.3); PROTHROMBIN TIME 16.8 SECONDS (9.4-12.5)
--- NOTE | 2018-06-19 13:11 | PN ---
DATE: 06/19/2018 SUBJECTIVE: The patient is seen and examined at bedside. She is alert, awake, and oriented. She is comfortable. She is sick in the chair. She is not in respiratory or otherwise distress. PHYSICAL EXAMINATION: VITAL SIGNS: Blood pressure 120/64, oxygen saturation 100%, respiratory rate 17, heart rate 75. HEENT: Head and neck atraumatic. LUNGS: Clear to auscultation bilaterally. HEART: Regular rate and rhythm. S1, S2 normal. ABDOMEN: Soft, nontender, nondistended. MUSCULOSKELETAL: No C/C/E. There is a 1-2+ chronic bilateral pedal and ankle edema. NEUROLOGIC: The patient moves all extremities spontaneously. SKIN: Moist. PSYCHIATRIC: The patient is alert, awake and oriented. LABORATORY DATA: WBC 10.6, hemoglobin 9.5, platelet count 104. Sodium 136, potassium 3.5, chloride 98, carbon dioxide 26, BUN 36, creatinine 4.2 (the patient is on chronic hemodialysis) AST 38, ALT 29, total bilirubin 1.5. MEDICATIONS: Tylenol p.r.n., Lipitor, aztreonam, Sensipar, daptomycin, Colace, heparin, hydrocortisone 25 mg IV every 6 hours, Synthroid, Ativan p.r.n., p.r.n. Flagyl, midodrine 10 mg p.o. three times a day, Zofran p.r.n., Percocet, Protonix, Seroquel; Senokot, Renagel, vitamin B and C, sodium bicarbonate p.r.n. ASSESSMENT AND PLAN: This is a 67-year-old lady who is recovering from acute right ventricular failure of unclear etiology. However, possibility of non-ST elevated myocardial infarction cannot be ruled out. The patient recovered from cardiogenic shock and currently is off of pressors and off of ionotropic support. Her mental status substantially improved. She is alert, awake and oriented x3. The patient initially planned cardiac catheterization for today; however, it was cancelled by Cardiology Service. We will continue target euvolemia, euglycemia, normothermia and oxygen saturation more than 90%. We will continue with DVT, GI prophylaxis. Okay to downgrade to telemetry. ccm time 40 min [place] MD JACINTA
--- NOTE | 2018-06-19 13:33 | PN ---
DATE: 06/19/2018 SUBJECTIVE: The patient is in ICU, bed 5. Overnight the patient was found to be alert, awake, oriented x2 with episodes of agitation and restlessness. The patient required Haldol with positive response. The patient's cardiac catheterization was canceled today due to fecal occult blood positive and Haldol been given to the patient for sedation, so cardiac catheterization was canceled. PHYSICAL EXAMINATION: VITAL SIGNS: As per the [facility] vital signs sheet: T-max 97.3, heart rate 86-88, ventricular paced, respirations 22, O2 sat 100%. Last documented blood pressure in the [facility] is from 06/18/2018 which is 119/77. HEAD: Normocephalic, atraumatic. HEENT examination shows pinkish, pale conjunctivae. Anicteric sclerae. No oropharyngeal lesion. Positive right internal jugular triple-lumen catheter noted. CHEST: Shows positive median sternotomy surgical scar. Positive left upper chest pacemaker. Positive kyphosis. Questionable decreased breath sound at the bases. ABDOMEN: Obese, protuberant. Positive bowel sounds. No palpable hepatosplenomegaly. GENITALIA: Female. RECTAL: Examination is deferred. EXTREMITIES: Shows positive dressing of the right foot and left foot with positive Band-Aid of the left foot noted. Trace swelling of the lower extremity noted. No pitting edema noted. MUSCULOSKELETAL: Examination is as per the body mass index of the [facility]. DIAGNOSTIC DATA: 06/19/2018, WBC 10.6, hemoglobin/hematocrit 9.5/29.7, platelet 104,000. Granulocytes 93% segs. Sodium 136, potassium is 3.5, chloride 98, CO2 of 26, BUN 36, creatinine 4.2, glucose 229, calcium 7.2, phosphorus 3.8, magnesium 2.2. Total bilirubin 1.5, direct bilirubin 1.3, AST 38. Fecal occult blood positive. Blood cultures, coagulase-negative Staphylococcus aureus left foot, left foot diabetic ulcer cultures Staphylococcus epidermidis, the right foot cultures, coagulase-negative staph. IMPRESSION: 1. Status post rapid response. 2. Possible cardiogenic versus septic versus hypotensive versus hypovolemic shock. 3. Refractory hypotension. 4. Acute non-ST elevation myocardial infarction with elevated troponin. 5. Paroxysmal atrial fibrillation. 6. Encephalopathy with confusion, disorientation. 7. Normocytic anemia with thrombocytopenia. 8. Granulocytosis. 9. Status post packed red blood cell transfusion x1. 10. End-stage renal disease, hemodialysis dependent. 11. Hypokalemia. 12. Hypocalcemia. 13. Hyperbilirubinemia. 14. Transaminitis. 15. Status post hematemesis and upper gastrointestinal bleeding with fecal occult blood positive. 16. Coagulase-negative Staphylococcus aureus bacteremia. 17. Left foot Staphylococcus epidermidis diabetic foot ulceration. 18. Right foot coagulase-negative Staphylococcus aureus diabetic foot ulceration. 19. Questionable and possible right breast cellulitis versus abscess versus . 20. Multiple calvarium and bony lytic and sclerotic lesions, etiology undetermined. 21. Microvascular ischemic disease of the brain. 22. Coronary artery disease, coronary artery bypass graft. 23. Permanent pacemaker implant. 24. Hypothyroidism with elevated TSH. 25. Diabetic neuropathy. 26. History of narcotic-dependent pain syndrome, etiology undetermined for the use of narcotics. PLAN: Plan at this time, the patient has been requested to have a Gastroenterology reevaluation and clearance for cardiac catheterization and also Psychiatry evaluation and reevaluation for need for Haldol and other psychotropic medication. The patient will be continued to be followed by Cardiology, Nephrology, Infectious Disease, Podiatry, Neurology, Gastroenterology and Psychiatry. Overall prognosis is guarded to poor. The patient's family including the son is aware, had a lengthy meeting with the patient's son yesterday Jaime. CURRENT MEDICATIONS: Will be as per the MAR of today which was reviewed. The patient will be continued on IV antibiotics as per the Infectious Disease recommendation. Plan at this time, the patient probably will undergo cardiac catheterization after GI clearance and after titration and optimization of psychiatric medication. The patient will also be continued on GI and DVT prophylaxis. PROGNOSIS: Guarded to poor. Time spent: 35 minutes. Dictated and electronically signed, not read. Jimy Simeon MD
--- NOTE | 2018-06-19 14:57 | CP.PCM.PN ---
<Sumanth Jonesemeterio - Last Filed: 06/19/18 14:54> Subjective - Date & Time of Evaluation Date of Evaluation: 06/19/18 Time of Evaluation: 14:55 - Subjective Subjective: Podiatry progress note: Dr. Holt 67 year old female patient seen and evaluated at bedside in ICU with 5th digit laceration. Patient resting comfortably and in NAD. Patient reports she is feeling much better today, and denies any other complaints. Per nursing, no a cute events overnight. Objective - Vital Signs/Intake and Output Vital Signs (last 24 hours): Temp Pulse Resp BP Pulse Ox 97.3 F L 81 28 H 136/85 100 06/19/18 06:00 06/19/18 13:00 06/19/18 13:00 06/19/18 13:00 06/19/18 13:00 Intake and Output: 06/19/18 06/19/18 06:59 18:59 Intake Total 1000 Output Total 400 Balance 600 - Medications Medications: Current Medications Acetaminophen (Tylenol 325mg Tab) 650 mg PO Q6 PRN PRN Reason: TEMP>=99.5F Last Admin: 06/11/18 12:02 Dose: 650 mg Acetaminophen (Tylenol 650 Mg Supp) 650 mg RC Q6H PRN PRN Reason: TEMP>=99.5F Acetaminophen (Tylenol 650 Mg Supp) 650 mg RC Q6H PRN PRN Reason: Headache Acetaminophen (Tylenol 325mg Tab) 650 mg PO Q6 PRN PRN Reason: Headache Last Admin: 06/16/18 16:53 Dose: 650 mg Atorvastatin Calcium (Lipitor) 80 mg PO HS [facility] Last Admin: 06/18/18 22:46 Dose: 80 mg Cinacalcet (Sensipar) 30 mg PO DIN [facility] Last Admin: 06/18/18 16:33 Dose: 30 mg Docusate Sodium (Colace) 100 mg PO TID [facility] Last Admin: 06/19/18 14:27 Dose: 100 mg Heparin Sodium (Porcine) (Heparin) 5,000 units SC Q8 [facility]; Protocol Last Admin: 06/19/18 14:28 Dose: 5,000 units Hydrocortisone Sodium Succinate (Solu-Cortef) 25 mg IVP DAILY [facility] Dopamine HCl/Dextrose (Dopamine 400mg/250ml D5w) 400 mg in 250 mls @ 16.074 mls/hr IV .[id number] PRN; Protocol PRN Reason: TITRATE TO KEEP SBP>=100 MMHG Aztreonam 500 mg/ Sodium (Chloride) 100 mls @ 100 mls/hr IVPB Q12H [facility]; Protocol Stop: 06/27/18 12:16 Last Admin: 06/19/18 11:50 Dose: 100 mls/hr Daptomycin 560 mg/ Sodium (Chloride) 100 mls @ 200 mls/hr IV Q48H [facility] Stop: 07/02/18 12:31 Last Admin: 06/18/18 13:40 Dose: 200 mls/hr Insulin Human Regular (Humulin R Low) 0 units SC ACHS [facility]; Protocol Last Admin: 06/19/18 12:01 Dose: 4 unit Levothyroxine Sodium (Synthroid) 12.5 mcg IVP DAILY [facility] Last Admin: 06/19/18 09:26 Dose: 12.5 mcg Lorazepam (Ativan) 2 mg IVP ONCE PRN; Protocol PRN Reason: Agitation Last Admin: 06/12/18 19:56 Dose: 2 mg Lorazepam (Ativan) 0.5 mg PO Q6 PRN; Protocol PRN Reason: Agitation Metronidazole (Flagyl) 500 mg PO Q8 [facility]; Protocol Stop: 06/27/18 14:01 Last Admin: 06/19/18 14:27 Dose: 500 mg Midodrine (Proamatine) 10 mg PO TID [facility] Last Admin: 06/19/18 14:26 Dose: 10 mg Mupirocin (Bactroban Ointment) 0 gm TOP BID [facility] Last Admin: 06/18/18 18:07 Dose: 1 cm2 Ondansetron HCl (Zofran Inj) 4 mg IVP Q4H PRN PRN Reason: Nausea/Vomiting Oxycodone/Acetaminophen (Percocet 5/325 Mg Tab) 1 tab PO Q6H PRN PRN Reason: Pain, severe (8-10) Stop: 06/20/18 08:07 Last Admin: 06/19/18 10:26 Dose: 1 tab Pantoprazole Sodium (Protonix Inj) 40 mg IVP Q12 [facility] Last Admin: 06/19/18 09:26 Dose: 40 mg Quetiapine Fumarate (Seroquel) 12.5 mg PO HS PRN; Protocol PRN Reason: agiation/psychosis Sennosides (Senokot Tab) 17.2 mg PO HS [facility] Last Admin: 06/18/18 22:46 Dose: 17.2 mg Sevelamer HCl (Renagel) 800 mg PO TID [facility] Last Admin: 06/19/18 14:28 Dose: 800 mg Silver Sulfadiazine (Silvadene 1% 25 Gm) 1 gm TP DAILY [facility] Last Admin: 06/18/18 11:50 Dose: 1 gm Sodium Bicarbonate (Sodium Bicarbonate 8.4% (50 Meq) Syringe) 50 meq IVP ONCE PRN PRN Reason: Other Vitamin B Complex/Vit C/Folic Acid (Nephro-Jose Miguel) 1 tab PO DAILY [facility] Last Admin: 06/19/18 09:25 Dose: 1 tab - Labs Labs: 06/19/18 06:30 06/19/18 06:30 PT 16.8 SECONDS (9.4-12.5) H 06/19/18 12:50 INR 1.49 06/19/18 12:50 APTT 28.7 Seconds (26.9-38.3) 06/19/18 12:50 - Constitutional Appears: Well, Non-toxic, No Acute Distress - Head Exam Head Exam: ATRAUMATIC, NORMOCEPHALIC - Eye Exam Eye Exam: Normal appearance - Extremities Exam Additional comments: VASC: DP and PT pulses nonpalpable. CFT <3 seconds to digits. Temperature gradient cool to cool. +1 pitting edema present b/l. ORTHO: Pain on palpation distal tuft of right hallux. Pain upon right hallucal IPJ and 1st MPJ ROM. No pain on palpation to LLE wounds. 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 NEURO: Light touch and protective sensation absent bilaterally. DERM: RLE=Partial thickness wound noted to dorsum of right hallux measuring approximately 0.5 x 0.5 x 0.1 cm 0 ulcer noted to have a mixed fibrogranular base and hyperkeratosis periwound; resolving. Fifth digit webscape laceration appreciated with no drainage. LLE=Partial thickness ulcerations noted to anteromedial ankle joint; wounds noted to have a mixed fibrogranular base and hyperkeratosis periwound; no periwound erythema; no purulence; no drainage; no fluctuance; no malodor. - Neurological Exam Neurological Exam: Alert, Awake, Oriented x3 - Psychiatric Exam Psychiatric exam: Normal Affect, Normal Mood Assessment and Plan - Assessment and Plan (Free Text) Assessment: 67 year old female with 1) bilateral lower extremity wounds, stable 2) right fifth digit laceration Plan: Patient seen and evaluated Discussed patient with Dr. Holt Chart, labs and vitals reviewed- Afebrile, absent leukocytosis Right foot x-ray; gross degenerative joint disease 1st MPJ, diffuse osteopenia, old healed fx 1st and 2nd mets, posttraumatic atrophy throughout the right 5th digit and 5th met bone Wounds cleansed with normal sterile saline Laceration cleansed with bactroban dressed with xeroform and DSD; left foot wounds dressed with optifoam Wound cx - staph epidermidis New wound cx from laceration site - (prelim) no growth Pain control per medicine Continue PT/OT Will continue to follow <Alex Holt - Last Filed: 06/20/18 09:59> Objective - Vital Signs/Intake and Output Vital Signs (last 24 hours): Temp Pulse Resp BP Pulse Ox 97.7 F 68 10 L 106/58 L 100 06/19/18 12:00 06/20/18 08:00 06/20/18 08:00 06/20/18 08:00 06/20/18 08:00 - Medications Medications: Current Medications Acetaminophen (Tylenol 325mg Tab) 650 mg PO Q6 PRN PRN Reason: TEMP>=99.5F Last Admin: 06/11/18 12:02 Dose: 650 mg Acetaminophen (Tylenol 650 Mg Supp) 650 mg RC Q6H PRN PRN Reason: TEMP>=99.5F Acetaminophen (Tylenol 650 Mg Supp) 650 mg RC Q6H PRN PRN Reason: Headache Acetaminophen (Tylenol 325mg Tab) 650 mg PO Q6 PRN PRN Reason: Headache Last Admin: 06/16/18 16:53 Dose: 650 mg Atorvastatin Calcium (Lipitor) 80 mg PO HS [facility] Last Admin: 06/19/18 21:23 Dose: 80 mg Cinacalcet (Sensipar) 30 mg PO DIN [facility] Last Admin: 06/19/18 17:21 Dose: 30 mg Docusate Sodium (Colace) 100 mg PO TID [facility] Last Admin: 06/20/18 09:12 Dose: 100 mg Heparin Sodium (Porcine) (Heparin) 5,000 units SC Q8 [facility]; Protocol Last Admin: 06/20/18 06:54 Dose: 5,000 units Hydrocortisone Sodium Succinate (Solu-Cortef) 25 mg IVP DAILY [facility] Last Admin: 06/20/18 09:10 Dose: 25 mg Dopamine HCl/Dextrose (Dopamine 400mg/250ml D5w) 400 mg in 250 mls @ 16.074 ml s/hr IV .[id number] PRN; Protocol PRN Reason: TITRATE TO KEEP SBP>=100 MMHG Aztreonam 500 mg/ Sodium (Chloride) 100 mls @ 100 mls/hr IVPB Q12H [facility]; Protocol Stop: 06/27/18 12:16 Last Admin: 06/20/18 00:00 Dose: 100 mls/hr Daptomycin 560 mg/ Sodium (Chloride) 100 mls @ 200 mls/hr IV Q48H [facility] Stop: 07/02/18 12:31 Last Admin: 06/18/18 13:40 Dose: 200 mls/hr Insulin Human Regular (Humulin R Low) 0 units SC ACHS [facility]; Protocol Last Admin: 06/20/18 08:10 Dose: 3 unit Levothyroxine Sodium (Synthroid) 12.5 mcg IVP DAILY [facility] Last Admin: 06/20/18 09:11 Dose: 12.5 mcg Lorazepam (Ativan) 2 mg IVP ONCE PRN; Protocol PRN Reason: Agitation Last Admin: 06/12/18 19:56 Dose: 2 mg Lorazepam (Ativan) 0.5 mg PO Q6 PRN; Protocol PRN Reason: Agitation Metronidazole (Flagyl) 500 mg PO Q8 [facility]; Protocol Stop: 06/27/18 14:01 Last Admin: 06/20/18 06:54 Dose: 500 mg Midodrine (Proamatine) 10 mg PO TID [facility] Last Admin: 06/20/18 09:11 Dose: 10 mg Mupirocin (Bactroban Ointment) 0 gm TOP BID [facility] Last Admin: 06/19/18 17:22 Dose: 2 cm2 Ondansetron HCl (Zofran Inj) 4 mg IVP Q4H PRN PRN Reason: Nausea/Vomiting Pantoprazole Sodium (Protonix Inj) 40 mg IVP Q12 [facility] Last Admin: 06/20/18 09:11 Dose: 40 mg Quetiapine Fumarate (Seroquel) 12.5 mg PO HS PRN; Protocol PRN Reason: agiation/psychosis Last Admin: 06/19/18 21:22 Dose: 12.5 mg Sennosides (Senokot Tab) 17.2 mg PO HS [facility] Last Admin: 06/19/18 21:47 Dose: 17.2 mg Sevelamer HCl (Renagel) 800 mg PO TID [facility] Last Admin: 06/19/18 17:17 Dose: 800 mg Silver Sulfadiazine (Silvadene 1% 25 Gm) 1 gm TP DAILY [facility] Last Admin: 06/18/18 11:50 Dose: 1 gm Sodium Bicarbonate (Sodium Bicarbonate 8.4% (50 Meq) Syringe) 50 meq IVP ONCE PRN PRN Reason: Other Vitamin B Complex/Vit C/Folic Acid (Nephro-Jose Miguel) 1 tab PO DAILY [facility] Last Admin: 06/20/18 09:12 Dose: 1 tab - Labs Labs: 06/20/18 06:15 06/20/18 06:15 PT 16.8 SECONDS (9.4-12.5) H 06/19/18 12:50 INR 1.49 06/19/18 12:50 APTT 28.7 Seconds (26.9-38.3) 06/19/18 12:50 Attending/Attestation - Attestation I have personally seen and examined this patient.: Yes I have fully participated in the care of the patient.: Yes I have reviewed all pertinent clinical information, including history, physical exam and plan: Yes
--- NOTE | 2018-06-19 15:12 | CP.PCM.APN ---
Subjective - Date & Time of Evaluation Date of Evaluation: 06/19/18 Time of Evaluation: 12:40 - Subjective Subjective: Pt. seen and examined, sitting up in chair, eating lunch, offers no complaints, Denied BM today, no further bleeding episodes noted. Review of Systems - Constitutional Constitutional: As Per HPI - EENT Eyes: absent: As Per HPI, Blind Spots, Blurred Vision, Change in Vision, Decreased Night Vision, Diplopia, Discharge, Dry Eye, Exophthalmos, Floaters, Irritation, Itchy Eyes, Loss of Peripheral Vision, Pain, Photophobia, Requires Corrective Lenses, Sees Flashes, Spots in Vision, Tunnel Vision, Other Visual Disturbances, Loss of Vision, Other Ears: absent: As Per HPI, Decreased Hearing, Ear Discharge, Ear Pain, Tinnitus, Abnormal Hearing, Disequilibrium, Dizziness, Other Nose/Mouth/Throat: absent: As Per HPI, Epistaxis, Nasal Congestion, Nasal Discharge, Nasal Obstruction, Nasal Trauma, Nose Pain, Post Nasal Drip, Sinus Pain, Sinus Pressure, Bleeding Gums, Change in Voice, Dental Pain, Dry Mouth, Dysphagia, Halitosis, Hoarsness, Lip Swelling, Mouth Lesions, Mouth Pain, Odynophagia, Sore Throat, Throat Swelling, Tongue Swelling, Facial Pain, Neck Pain, Neck Mass, Other - Breasts Breasts: absent: As Per HPI, Change in Shape, Mass, Pain, Nipple Discharge, Nipple Inversion, Skin Changes, Swelling, Other - Cardiovascular Cardiovascular: absent: As Per HPI, Acrocyanosis, Chest Pain, Chest Pain at Rest, Chest Pain with Activity, Claudication, Diaphoresis, Dyspnea, Dyspnea on Exertion, Edema, Irregular Heart Rhythm, Pain Radiating to Arm/Neck/Jaw, Leg Edema, Leg Ulcers, Lightheadedness, Orthopnea, Palpitations, Paroxysmal Nocturnal Dyspnea, Pedal Edema, Radiating Pain, Rapid Heart Rate, Slow Heart Rate, Syncope, Other - Gastrointestinal Gastrointestinal: absent: As Per HPI, Abdominal Pain, Belching, Bloating, Change in Bowel Habits, Change in Stool Character, Coffee Ground Emesis, Constipation, Cramping, Diarrhea, Dyspepsia, Dysphagia, Early Satiety, Excessive Flatus, Fecal Incontinence, Heartburn, Hematemesis, Hematochezia, Loose Stools, Melena, Nausea, Odynophagia, Temesmus, Vomiting, Other - Genitourinary Genitourinary: absent: As Per HPI, Change in Urinary Stream, Difficulty Urinating, Dysuria, Flank Pain, Hematuria, Pyuria, Nocturia, Urinary Incontinence, Urinary Frequency, Urinary Hesitance, Urinary Urgency, Voiding Freq/Small Amts, Freq UTI, Hx Renal/Bladder Calculi, Hx /Renal Surgery, Bladder Distension, Other - Reproductive: Female Reproductive:Female: absent: As Per HPI, Amenorrhea, Amenorrhea/ Control, Currently Menstual, Cycle <21 Days, Cycle >35 Days, Cycle Variable, Menses 1-7 Days, Menses >/= 8 Days, Menses Variable, Cycle > 4 Weeks Between, No Menses for 6 Months, Heavy Menses, Light Menses, Normal Menses, Spotting Between Cycles, S/P Hysterectomy, Menopausal, Post Menopausal, Premenarche, Abnormal Vaginal Bleeding, Dysmenorrhea, Dyspareunia, Genital Lesions, Genital Pruritis, Pelvic Pain, Prolapse Symptoms, Sexual Dysfunction, Vaginal Discharge, Vaginal Dryness, Vaginal Odor, Vaginal Pruritis, Other - Menstruation Menstruation: absent: As Per HPI, Amenorrhea, Amenorrhea/ Control, Currently Menstual, Cycle <21 Days, Cycle >35 Days, Cycle Variable, Menses 1-7 Days, Menses >/= 8 Days, Menses Variable, Cycle > 4 Weeks Between, No Menses for 6 Months, Heavy Menses, Light Menses, Normal Menses, Spotting Between Cycles, S/P Hysterectomy, Menopausal, Post Menopausal, Premenarche, Abnormal Vaginal Bleeding, Dysmenorrhea, Other - Musculoskeletal Musculoskeletal: absent: As Per HPI, Abnormal Gait, Arthralgias, Atrophy, Back Pain, Deformity, Joint Swelling, Limited Range of Motion, Loss of Height, Muscle Cramps, Muscle Weakness, Myalgias, Neck Pain, Numbness, Radiating Pain into Limb, Stiffness, Tingling, Other - Integumentary Integumentary: absent: As Per HPI, Acne, Alopecia, Bleeding Lesions, Change in Hair, Change in Nails, Change in Pigmentation, Changing Lesions, Dry Skin, Erythema, Furuncle, Hirsutism, Lesions, New Lesions, Non-Healing Lesions, Photosensitivity, Pruritus, Rash, Skin Pain, Skin Ulcer, Sores, Striae, Swelling, Unusual Bruising, Wounds, Jaundice, Other - Neurological Neurological: As Per HPI - Psychiatric Psychiatric: As Per HPI - Endocrine Endocrine: As Per HPI - Hematologic/Lymphatic Hematologic: As Per HPI Objective - Vital Signs/Intake and Output Vital Signs (last 24 hours): Temp Pulse Resp BP Pulse Ox 97.3 F L 81 28 H 136/85 100 06/19/18 06:00 06/19/18 13:00 06/19/18 13:00 06/19/18 13:00 06/19/18 13:00 Intake and Output: 06/19/18 06/19/18 06:59 18:59 Intake Total 1000 Output Total 400 Balance 600 - Medications Medications: Current Medications Acetaminophen (Tylenol 325mg Tab) 650 mg PO Q6 PRN PRN Reason: TEMP>=99.5F Last Admin: 06/11/18 12:02 Dose: 650 mg Acetaminophen (Tylenol 650 Mg Supp) 650 mg RC Q6H PRN PRN Reason: TEMP>=99.5F Acetaminophen (Tylenol 650 Mg Supp) 650 mg RC Q6H PRN PRN Reason: Headache Acetaminophen (Tylenol 325mg Tab) 650 mg PO Q6 PRN PRN Reason: Headache Last Admin: 06/16/18 16:53 Dose: 650 mg Atorvastatin Calcium (Lipitor) 80 mg PO HS [facility] Last Admin: 06/18/18 22:46 Dose: 80 mg Cinacalcet (Sensipar) 30 mg PO DIN [facility] Last Admin: 06/18/18 16:33 Dose: 30 mg Docusate Sodium (Colace) 100 mg PO TID [facility] Last Admin: 06/19/18 14:27 Dose: 100 mg Heparin Sodium (Porcine) (Heparin) 5,000 units SC Q8 [facility]; Protocol Last Admin: 06/19/18 14:28 Dose: 5,000 units Hydrocortisone Sodium Succinate (Solu-Cortef) 25 mg IVP DAILY [facility] Dopamine HCl/Dextrose (Dopamine 400mg/250ml D5w) 400 mg in 250 mls @ 16.074 mls/hr IV .[id number] PRN; Protocol PRN Reason: TITRATE TO KEEP SBP>=100 MMHG Aztreonam 500 mg/ Sodium (Chloride) 100 mls @ 100 mls/hr IVPB Q12H [facility]; Protocol Stop: 06/27/18 12:16 Last Admin: 06/19/18 11:50 Dose: 100 mls/hr Daptomycin 560 mg/ Sodium (Chloride) 100 mls @ 200 mls/hr IV Q48H [facility] Stop: 07/02/18 12:31 Last Admin: 06/18/18 13:40 Dose: 200 mls/hr Insulin Human Regular (Humulin R Low) 0 units SC ACHS [facility]; Protocol Last Admin: 06/19/18 12:01 Dose: 4 unit Levothyroxine Sodium (Synthroid) 12.5 mcg IVP DAILY [facility] Last Admin: 06/19/18 09:26 Dose: 12.5 mcg Lorazepam (Ativan) 2 mg IVP ONCE PRN; Protocol PRN Reason: Agitation Last Admin: 06/12/18 19:56 Dose: 2 mg Lorazepam (Ativan) 0.5 mg PO Q6 PRN; Protocol PRN Reason: Agitation Metronidazole (Flagyl) 500 mg PO Q8 [facility]; Protocol Stop: 06/27/18 14:01 Last Admin: 06/19/18 14:27 Dose: 500 mg Midodrine (Proamatine) 10 mg PO TID [facility] Last Admin: 06/19/18 14:26 Dose: 10 mg Mupirocin (Bactroban Ointment) 0 gm TOP BID [facility] Last Admin: 06/18/18 18:07 Dose: 1 cm2 Ondansetron HCl (Zofran Inj) 4 mg IVP Q4H PRN PRN Reason: Nausea/Vomiting Oxycodone/Acetaminophen (Percocet 5/325 Mg Tab) 1 tab PO Q6H PRN PRN Reason: Pain, severe (8-10) Stop: 06/20/18 08:07 Last Admin: 06/19/18 10:26 Dose: 1 tab Pantoprazole Sodium (Protonix Inj) 40 mg IVP Q12 [facility] Last Admin: 06/19/18 09:26 Dose: 40 mg Quetiapine Fumarate (Seroquel) 12.5 mg PO HS PRN; Protocol PRN Reason: agiation/psychosis Sennosides (Senokot Tab) 17.2 mg PO HS [facility] Last Admin: 06/18/18 22:46 Dose: 17.2 mg Sevelamer HCl (Renagel) 800 mg PO TID [facility] Last Admin: 06/19/18 14:28 Dose: 800 mg Silver Sulfadiazine (Silvadene 1% 25 Gm) 1 gm TP DAILY [facility] Last Admin: 06/18/18 11:50 Dose: 1 gm Sodium Bicarbonate (Sodium Bicarbonate 8.4% (50 Meq) Syringe) 50 meq IVP ONCE PRN PRN Reason: Other Vitamin B Complex/Vit C/Folic Acid (Nephro-Jose Miguel) 1 tab PO DAILY [facility] Last Admin: 06/19/18 09:25 Dose: 1 tab - Labs Labs: 06/19/18 06:30 06/19/18 06:30 PT 16.8 SECONDS (9.4-12.5) H 06/19/18 12:50 INR 1.49 06/19/18 12:50 APTT 28.7 Seconds (26.9-38.3) 06/19/18 12:50 - Constitutional Appears: Well, Non-toxic - Head Exam Head Exam: NORMOCEPHALIC - Eye Exam Eye Exam: Normal appearance - Cardiovascular Exam Cardiovascular Exam: REGULAR RHYTHM, +S1, +S2 - GI/Abdominal Exam GI & Abdominal Exam: Soft - Rectal Exam Rectal Exam: Deferred - Exam Exam: absent: Circumcision, NORMAL INSPECTION, Scrotal Swelling, Testicular Tenderness, Uretheral Discharge, Testicular Vertical Lie, Bladder Distension External exam: absent: Ecchymosis, Erythema, Lacerations, Lesions, NORMAL EXTERNAL EXAM, Swelling Speculum exam: absent: Cervical Discharge, Erythema, Foreign Body, Laceration, NORMAL SPECULUM EXAM, Tissue, Vaginal Bleeding, Vaginal Discharge - Extremities Exam Extremities Exam: Full ROM - Neurological Exam Neurological Exam: Alert, Awake, Oriented x3 - Skin Skin Exam: Dry, Intact, Normal Color, Warm Assessment and Plan - Assessment and Plan (Free Text) Assessment: Assessment: 67 year old female with PMH of CAD s/p CABG and 5 stents, ESRD on HD //, HTN, hypothyroidism and DM who presented to the hospital on 06/11 for severe right sided lower back pain that initially started one year ago after fall in her kitchen as well as right sided breast pain from kitchen accident one week ago. Patient was brought to the ICU on 06/12 after [employer] TECHNICIAN called for systolic BP n oted to be in the 70s. Patient admitted to the ICU for persistant hypotension secondary to RV failure from severe dilated RV on Echo 06/12/18, was started on IV Pressors. Plan: 1. Hypotension Maybe secondary to RV failure , maybe secondary to upper GI bleed. IV pressors discontinued per PmD, monitor B.P. off pressors 2. Upper GI Bleed, with oral gastric tube removed. REcs as per GI., no GI w/u as per GI. Heme Pos. stool, No GI w/u as per GI. -trend and follow CBC. 3. NSTEMI/ Right- Sided heart Failure Cardiac CAth postponed today, due to confusion, agitation, no further cardiac work up recommended per card. -Continue Heparin SC per card, further recs. per card. Awaiting transfer to telemetry. 4. Confusion/Agitation REcs as per Nasir Rojo DC, now on Seroquel. 5. CRF,on HD Receiving hemodialysis, . Sat., as per Nephro. 6. Right Breast Cellulitis - Antibiotics as per I.D., will need 3-6 more days IV antibiotics from time repeat blood cultures neg. - consider peripheral IV, pt. currently with TLC to right neck. PT recommends TCU Anticipate DC to TCU when medically cleared.
[2018-06-19] MEDS: Mupirocin 2% Ointment 15 GM TUBE TOP SCH (17:22)
--- NOTE | 2018-06-19 22:18 | CP.PCM.PN ---
Subjective - Date & Time of Evaluation Date of Evaluation: 06/19/18 Time of Evaluation: 19:00 - Subjective Subjective: Feeling better, less breast pain. Objective - Vital Signs/Intake and Output Vital Signs (last 24 hours): Temp Pulse Resp BP Pulse Ox 97.7 F 73 18 135/69 100 06/19/18 12:00 06/19/18 17:00 06/19/18 17:00 06/19/18 17:00 06/19/18 17:00 Intake and Output: 06/19/18 06/20/18 18:59 06:59 Intake Total 1060 Balance 1060 - Medications Medications: Current Medications Acetaminophen (Tylenol 325mg Tab) 650 mg PO Q6 PRN PRN Reason: TEMP>=99.5F Last Admin: 06/11/18 12:02 Dose: 650 mg Acetaminophen (Tylenol 650 Mg Supp) 650 mg RC Q6H PRN PRN Reason: TEMP>=99.5F Acetaminophen (Tylenol 650 Mg Supp) 650 mg RC Q6H PRN PRN Reason: Headache Acetaminophen (Tylenol 325mg Tab) 650 mg PO Q6 PRN PRN Reason: Headache Last Admin: 06/16/18 16:53 Dose: 650 mg Atorvastatin Calcium (Lipitor) 80 mg PO HS [facility] Last Admin: 06/19/18 21:23 Dose: 80 mg Cinacalcet (Sensipar) 30 mg PO DIN [facility] Last Admin: 06/19/18 17:21 Dose: 30 mg Docusate Sodium (Colace) 100 mg PO TID [facility] Last Admin: 06/19/18 17:15 Dose: Not Given Heparin Sodium (Porcine) (Heparin) 5,000 units SC Q8 [facility]; Protocol Last Admin: 06/19/18 21:18 Dose: 5,000 units Hydrocortisone Sodium Succinate (Solu-Cortef) 25 mg IVP DAILY [facility] Dopamine HCl/Dextrose (Dopamine 400mg/250ml D5w) 400 mg in 250 mls @ 16.074 mls/hr IV .[id number] PRN; Protocol PRN Reason: TITRATE TO KEEP SBP>=100 MMHG Aztreonam 500 mg/ Sodium (Chloride) 100 mls @ 100 mls/hr IVPB Q12H [facility]; Protocol Stop: 06/27/18 12:16 Last Admin: 06/19/18 11:50 Dose: 100 mls/hr Daptomycin 560 mg/ Sodium (Chloride) 100 mls @ 200 mls/hr IV Q48H [facility] Stop: 07/02/18 12:31 Last Admin: 06/18/18 13:40 Dose: 200 mls/hr Insulin Human Regular (Humulin R Low) 0 units SC ACHS [facility]; Protocol Last Admin: 06/19/18 21:46 Dose: 4 unit Levothyroxine Sodium (Synthroid) 12.5 mcg IVP DAILY [facility] Last Admin: 06/19/18 09:26 Dose: 12.5 mcg Lorazepam (Ativan) 2 mg IVP ONCE PRN; Protocol PRN Reason: Agitation Last Admin: 06/12/18 19:56 Dose: 2 mg Lorazepam (Ativan) 0.5 mg PO Q6 PRN; Protocol PRN Reason: Agitation Metronidazole (Flagyl) 500 mg PO Q8 [facility]; Protocol Stop: 06/27/18 14:01 Last Admin: 06/19/18 21:33 Dose: 500 mg Midodrine (Proamatine) 10 mg PO TID [facility] Last Admin: 06/19/18 17:19 Dose: 10 mg Mupirocin (Bactroban Ointment) 0 gm TOP BID [facility] Last Admin: 06/19/18 17:22 Dose: 2 cm2 Ondansetron HCl (Zofran Inj) 4 mg IVP Q4H PRN PRN Reason: Nausea/Vomiting Oxycodone/Acetaminophen (Percocet 5/325 Mg Tab) 1 tab PO Q6H PRN PRN Reason: Pain, severe (8-10) Stop: 06/20/18 08:07 Last Admin: 06/19/18 21:23 Dose: 1 tab Pantoprazole Sodium (Protonix Inj) 40 mg IVP Q12 [facility] Last Admin: 06/19/18 21:18 Dose: 40 mg Quetiapine Fumarate (Seroquel) 12.5 mg PO HS PRN; Protocol PRN Reason: agiation/psychosis Last Admin: 06/19/18 21:22 Dose: 12.5 mg Sennosides (Senokot Tab) 17.2 mg PO HS [facility] Last Admin: 06/19/18 21:47 Dose: 17.2 mg Sevelamer HCl (Renagel) 800 mg PO TID [facility] Last Admin: 06/19/18 17:17 Dose: 800 mg Silver Sulfadiazine (Silvadene 1% 25 Gm) 1 gm TP DAILY [facility] Last Admin: 06/18/18 11:50 Dose: 1 gm Sodium Bicarbonate (Sodium Bicarbonate 8.4% (50 Meq) Syringe) 50 meq IVP ONCE PRN PRN Reason: Other Vitamin B Complex/Vit C/Folic Acid (Nephro-Jose Miguel) 1 tab PO DAILY [facility] Last Admin: 06/19/18 09:25 Dose: 1 tab - Labs Labs: 06/19/18 06:30 06/19/18 06:30 PT 16.8 SECONDS (9.4-12.5) H 06/19/18 12:50 INR 1.49 06/19/18 12:50 APTT 28.7 Seconds (26.9-38.3) 06/19/18 12:50 - Head Exam Head Exam: ATRAUMATIC - Eye Exam Eye Exam: Normal appearance - ENT Exam ENT Exam: Mucous Membranes Dry - Respiratory Exam Respiratory Exam: NORMAL BREATHING PATTERN - Cardiovascular Exam Cardiovascular Exam: +S1, +S2 - GI/Abdominal Exam GI & Abdominal Exam: Normal Bowel Sounds Assessment and Plan (1) Thrombocytopenia Assessment & Plan: improved resolving DIC Status: Acute (2) Anemia Assessment & Plan: chronic disease anemia of CKD Status: Acute (3) Coagulopathy Assessment & Plan: resolving DIC likely nutritional component Status: Acute (4) Lytic bone lesions on xray Assessment & Plan: monoclonal protein negative malignancy w/u when more stable - right breast/chest wall edema ?cellulitis ?malignancy Status: Acute
[2018-06-20] MEDS: Oxycodone/Acetaminophen 5/325 mg Tab PO PRN ×3 (04:50→19:50)
[2018-06-20 06:40] LABS: EOS # 0.1 (0.0-0.7); EOS % 0.5 % (1.5-5.0); HEMOGLOBIN 10.2 g/dL (12.0-16.0); LYMPH % 9.2 % (22.0-35.0); MEAN CELL VOLUME 94.1 fl (80.0-105.0); MEAN CORPUSCULAR HEMOGLOBIN 30.1 pg (25.0-35.0); MEAN PLATELET VOLUME 10.7 fl (7.0-11.0); MONO # 0.3 (0.1-0.6); RBC 3.39 10^6/uL (3.5-6.1); WHITE BLOOD COUNT 10.5 10^3/uL (4.5-11.0)
[2018-06-20 07:25] LABS: ALBUMIN 3.6 g/dL (3.0-4.8); BILIRUBIN,DIRECT 1.1 mg/dL (0.0-0.4); CALCIUM 7.2 mg/dL (8.4-10.5)
[2018-06-20] MEDS: Insulin Reg-LOW-Coverage SC SCH ×4 (08:10→22:19)
[2018-06-20] MEDS: Levothyroxine 100 mcg (0.1 mg) Inj IVP SCH (09:11)
[2018-06-20] MEDS: Multivitamin Vitamin B Complex (Nephro-Vite) Tab PO SCH (09:12)
--- NOTE | 2018-06-20 09:54 | CP.PCM.PCO ---
Physician Communication Note - Physician Communication Note Physician Communication Note: PT rec NIKO,ESRD on HD,CM/SW discharge planning,medically cleared for DC
[2018-06-20] MEDS: Mupirocin 2% Ointment 15 GM TUBE TOP SCH ×2 (10:21→18:13)
--- NOTE | 2018-06-20 12:20 | CP.PCM.PN ---
Subjective - Date & Time of Evaluation Date of Evaluation: 06/20/18 Time of Evaluation: 12:19 - Subjective Subjective: Nephrology Consultation Note Assessment: stable Shock ? cardiogenic/septic (GPC) Diabetic chronic Kidney Disease (E11.22) Hypertensive Chronic Kidney Disease (I12.0) End stage renal disease (N18.6) dependence on hemodialysis (Z99.2) (TTS) via AVF Anemia (D64.9), Hyperphosphatemia (E83.39), Secondary Hyperparathyroidism (E21.1), HTN (I12.0) CAD s/p CABG obesity thrombocytopenia Lytic lesions ? underlying malignancy breast cellulitis versus malignancy lactic acidosis, GI bleed RV dysfunction, moderate to severe MR Plan: Will plan for next dialysis per TTS schedule. Continue with Nephrovite 1 tab/day. PRBC as needed for anemia. defer further ADAM as concerns with malignancy. Hb 9.5 heme/onc following continue with phos binders, last phos level 3.8 PTH 547 pt off pressors. maintain hemodynamic stable.midodrine increased to 10 mg TID Glycemic control, Dialysis consistent diet Further work up/management as per primary team Dose meds/antibiotics (if needed) for ESRD status. Avoid fleets enema/magnesium based laxatives. ID following overall stable from renal perspective. Thanks for allowing me to participate in care of your patient. Will follow patient with you. Please call if any Qs. had d/w team and family Dr Amrit Malone Office: [phone] Subjective: Noted events overnight. feels well. no complaints. appears much better. talkative a lot. c/o chronic back pain off pressors Physical Examination: seen marisa Salazar General Appearance: in no acute respiratory distress, better appearing comfortable pleasant Vitals reviewed and noted as below Head; Atraumatic, normocephalic ENT: no ulcers no thrush. Tongue is midline/dry. Oropharynx: no rash or ulcers. Neck; supple no lymphadenopathy, no thyromegaly or bruit Lungs: Normal respiratory rate/effort. Breath sounds bilateral equal and clear Heart: Normal rate. s1s2 normal. No rub or gallop. Extremities: no Rt edema. No varicose veins. has chronic left leg edema Neurological: Patient is AMS status. mostly non communicative but more responsive Skin: Warm and dry. Normal turgor. No rash. Palpitation: Normal elasticity for age Abdomen: Abdomen is soft. Bowel sounds +. There is no abdominal tenderness, no guarding/rigidity or organomegaly Psych: limited insight. normal affect/mood MSK: no joint tenderness or swelling. Digits and nails normal, no deformity : kidney or bladder not palpable Access: AVF 06/12/18: breast examined with RN,Rt breast everardo-areolar swelling fulness ? mass, [place] appearance Labs/imaging reviewed. Past medical history, past surgical history, family history, social history, allergy reviewed and noted as below Family Hx: no hx of CKD. Non contributory Objective - Vital Signs/Intake and Output Vital Signs (last 24 hours): Temp Pulse Resp BP Pulse Ox 97.7 F 68 10 L 106/58 L 100 06/19/18 12:00 06/20/18 10:00 06/20/18 08:00 06/20/18 08:00 06/20/18 08:00 - Medications Medications: Current Medications Acetaminophen (Tylenol 325mg Tab) 650 mg PO Q6 PRN PRN Reason: TEMP>=99.5F Last Admin: 06/11/18 12:02 Dose: 650 mg Acetaminophen (Tylenol 650 Mg Supp) 650 mg RC Q6H PRN PRN Reason: TEMP>=99.5F Acetaminophen (Tylenol 650 Mg Supp) 650 mg RC Q6H PRN PRN Reason: Headache Acetaminophen (Tylenol 325mg Tab) 650 mg PO Q6 PRN PRN Reason: Headache Last Admin: 06/16/18 16:53 Dose: 650 mg Atorvastatin Calcium (Lipitor) 80 mg PO HS [facility] Last Admin: 06/19/18 21:23 Dose: 80 mg Cinacalcet (Sensipar) 30 mg PO DIN [facility] Last Admin: 06/19/18 17:21 Dose: 30 mg Docusate Sodium (Colace) 100 mg PO TID [facility] Last Admin: 06/20/18 09:12 Dose: 100 mg Heparin Sodium (Porcine) (Heparin) 5,000 units SC Q8 [facility]; Protocol Last Admin: 06/20/18 06:54 Dose: 5,000 units Hydrocortisone Sodium Succinate (Solu-Cortef) 25 mg IVP DAILY [facility] Last Admin: 06/20/18 09:10 Dose: 25 mg Dopamine HCl/Dextrose (Dopamine 400mg/250ml D5w) 400 mg in 250 mls @ 16.074 mls/hr IV .[id number] PRN; Protocol PRN Reason: TITRATE TO KEEP SBP>=100 MMHG Aztreonam 500 mg/ Sodium (Chloride) 100 mls @ 100 mls/hr IVPB Q12H [facility]; Protocol Stop: 06/27/18 12:16 Last Admin: 06/20/18 00:00 Dose: 100 mls/hr Daptomycin 560 mg/ Sodium (Chloride) 100 mls @ 200 mls/hr IV Q48H [facility] Stop: 07/02/18 12:31 Last Admin: 06/18/18 13:40 Dose: 200 mls/hr Insulin Human Regular (Humulin R Low) 0 units SC ACHS [facility]; Protocol Last Admin: 06/20/18 12:15 Dose: Not Given Levothyroxine Sodium (Synthroid) 12.5 mcg IVP DAILY [facility] Last Admin: 06/20/18 09:11 Dose: 12.5 mcg Lorazepam (Ativan) 2 mg IVP ONCE PRN; Protocol PRN Reason: Agitation Last Admin: 06/12/18 19:56 Dose: 2 mg Lorazepam (Ativan) 0.5 mg PO Q6 PRN; Protocol PRN Reason: Agitation Metronidazole (Flagyl) 500 mg PO Q8 [facility]; Protocol Stop: 06/27/18 14:01 Last Admin: 06/20/18 06:54 Dose: 500 mg Midodrine (Proamatine) 10 mg PO TID [facility] Last Admin: 06/20/18 09:11 Dose: 10 mg Mupirocin (Bactroban Ointment) 0 gm TOP BID [facility] Last Admin: 06/20/18 10:21 Dose: 1 applic Ondansetron HCl (Zofran Inj) 4 mg IVP Q4H PRN PRN Reason: Nausea/Vomiting Oxycodone/Acetaminophen (Percocet 5/325 Mg Tab) 1 tab PO Q6H PRN PRN Reason: Pain, severe (8-10) Stop: 06/23/18 11:42 Pantoprazole Sodium (Protonix Inj) 40 mg IVP Q12 [facility] Last Admin: 06/20/18 09:11 Dose: 40 mg Quetiapine Fumarate (Seroquel) 12.5 mg PO HS PRN; Protocol PRN Reason: agiation/psychosis Last Admin: 06/19/18 21:22 Dose: 12.5 mg Sennosides (Senokot Tab) 17.2 mg PO HS [facility] Last Admin: 06/19/18 21:47 Dose: 17.2 mg Sevelamer HCl (Renagel) 800 mg PO TID [facility] Last Admin: 06/20/18 12:13 Dose: 800 mg Silver Sulfadiazine (Silvadene 1% 25 Gm) 1 gm TP DAILY [facility] Last Admin: 06/18/18 11:50 Dose: 1 gm Sodium Bicarbonate (Sodium Bicarbonate 8.4% (50 Meq) Syringe) 50 meq IVP ONCE PRN PRN Reason: Other Vitamin B Complex/Vit C/Folic Acid (Nephro-Jose Miguel) 1 tab PO DAILY [facility] Last Admin: 06/20/18 09:12 Dose: 1 tab - Labs Labs: 06/20/18 06:15 06/20/18 06:15 PT 16.8 SECONDS (9.4-12.5) H 06/19/18 12:50 INR 1.49 06/19/18 12:50 APTT 28.7 Seconds (26.9-38.3) 06/19/18 12:50
--- NOTE | 2018-06-20 12:46 | CP.PCM.PCO ---
Physician Communication Note - Physician Communication Note Physician Communication Note: No cardiac cath as per Dr. Berman
--- NOTE | 2018-06-20 13:53 | CP.PCM.PCO ---
Physician Communication Note - Physician Communication Note Physician Communication Note: Pt.cleared from cardiac standpoint per Dr. Berman for dC to [facility]
--- NOTE | 2018-06-20 13:53 | CP.PCM.PCO ---
Physician Communication Note - Physician Communication Note Physician Communication Note: Pt. cleared from nephrology, per Dr. Malone for DC to [facility]
--- NOTE | 2018-06-20 14:52 | CP.PCM.PN ---
Subjective - Date & Time of Evaluation Date of Evaluation: 06/20/18 Time of Evaluation: 11:30 - Subjective Subjective: Comfortable in bed, no fevers. Objective - Vital Signs/Intake and Output Vital Signs (last 24 hours): Temp Pulse Resp BP Pulse Ox 97.3 F L 88 22 119/77 100 06/19/18 06:00 06/19/18 06:00 06/19/18 00:01 06/18/18 16:00 06/19/18 00:01 Intake and Output: 06/19/18 06/19/18 06:59 18:59 Intake Total 1000 Output Total 400 Balance 600 - Medications Medications: Current Medications Acetaminophen (Tylenol 325mg Tab) 650 mg PO Q6 PRN PRN Reason: TEMP>=99.5F Last Admin: 06/11/18 12:02 Dose: 650 mg Acetaminophen (Tylenol 650 Mg Supp) 650 mg RC Q6H PRN PRN Reason: TEMP>=99.5F Acetaminophen (Tylenol 650 Mg Supp) 650 mg RC Q6H PRN PRN Reason: Headache Acetaminophen (Tylenol 325mg Tab) 650 mg PO Q6 PRN PRN Reason: Headache Last Admin: 06/16/18 16:53 Dose: 650 mg Atorvastatin Calcium (Lipitor) 80 mg PO HS [facility] Last Admin: 06/18/18 22:46 Dose: 80 mg Cinacalcet (Sensipar) 30 mg PO DIN [facility] Last Admin: 06/18/18 16:33 Dose: 30 mg Docusate Sodium (Colace) 100 mg PO TID [facility] Last Admin: 06/19/18 09:26 Dose: 100 mg Heparin Sodium (Porcine) (Heparin) 5,000 units SC Q8 [facility]; Protocol Last Admin: 06/19/18 05:02 Dose: Not Given Hydrocortisone Sodium Succinate (Solu-Cortef) 25 mg IVP DAILY [facility] Dopamine HCl/Dextrose (Dopamine 400mg/250ml D5w) 400 mg in 250 mls @ 16.074 mls/hr IV .[id number] PRN; Protocol PRN Reason: TITRATE TO KEEP SBP>=100 MMHG Aztreonam 500 mg/ Sodium (Chloride) 100 mls @ 100 mls/hr IVPB Q12H [facility]; Protocol Stop: 06/27/18 12:16 Last Admin: 06/19/18 11:50 Dose: 100 mls/hr Daptomycin 560 mg/ Sodium (Chloride) 100 mls @ 200 mls/hr IV Q48H [facility] Stop: 07/02/18 12:31 Last Admin: 06/18/18 13:40 Dose: 200 mls/hr Insulin Human Regular (Humulin R Low) 0 units SC ACHS [facility]; Protocol Last Admin: 06/19/18 12:01 Dose: 4 unit Levothyroxine Sodium (Synthroid) 12.5 mcg IVP DAILY [facility] Last Admin: 06/19/18 09:26 Dose: 12.5 mcg Lorazepam (Ativan) 2 mg IVP ONCE PRN; Protocol PRN Reason: Agitation Last Admin: 06/12/18 19:56 Dose: 2 mg Lorazepam (Ativan) 0.5 mg PO Q6 PRN; Protocol PRN Reason: Agitation Metronidazole (Flagyl) 500 mg PO Q8 [facility]; Protocol Stop: 06/27/18 14:01 Last Admin: 06/19/18 06:36 Dose: 500 mg Midodrine (Proamatine) 10 mg PO TID [facility] Last Admin: 06/19/18 09:23 Dose: 10 mg Mupirocin (Bactroban Ointment) 0 gm TOP BID [facility] Last Admin: 06/18/18 18:07 Dose: 1 cm2 Ondansetron HCl (Zofran Inj) 4 mg IVP Q4H PRN PRN Reason: Nausea/Vomiting Oxycodone/Acetaminophen (Percocet 5/325 Mg Tab) 1 tab PO Q6H PRN PRN Reason: Pain, severe (8-10) Stop: 06/20/18 08:07 Last Admin: 06/19/18 10:26 Dose: 1 tab Pantoprazole Sodium (Protonix Inj) 40 mg IVP Q12 [facility] Last Admin: 06/19/18 09:26 Dose: 40 mg Quetiapine Fumarate (Seroquel) 12.5 mg PO HS PRN; Protocol PRN Reason: agiation/psychosis Sennosides (Senokot Tab) 17.2 mg PO HS [facility] Last Admin: 06/18/18 22:46 Dose: 17.2 mg Sevelamer HCl (Renagel) 800 mg PO TID [facility] Last Admin: 06/19/18 09:24 Dose: 800 mg Silver Sulfadiazine (Silvadene 1% 25 Gm) 1 gm TP DAILY [facility] Last Admin: 06/18/18 11:50 Dose: 1 gm Sodium Bicarbonate (Sodium Bicarbonate 8.4% (50 Meq) Syringe) 50 meq IVP ONCE PRN PRN Reason: Other Vitamin B Complex/Vit C/Folic Acid (Nephro-Jose Miguel) 1 tab PO DAILY [facility] Last Admin: 06/19/18 09:25 Dose: 1 tab - Labs Labs: 06/19/18 06:30 06/19/18 06:30 PT 18.8 SECONDS (9.4-12.5) H 06/13/18 13:00 INR 1.66 06/13/18 13:00 APTT 137.8 Seconds (26.9-38.3) H* 06/13/18 13:00 - Constitutional Appears: Chronically Ill - Head Exam Head Exam: NORMAL INSPECTION - Respiratory Exam Respiratory Exam: Decreased Breath Sounds - Cardiovascular Exam Cardiovascular Exam: +S1, +S2 - GI/Abdominal Exam GI & Abdominal Exam: absent: Tenderness Assessment and Plan - Assessment and Plan (Free Text) Plan: Assessment S/P Hypotension, consider due to right sided heart failure, consider GI bleeding coagulase negative staph bacteremia, source not clear right breast cellulitis, slowly improving obesity with BMI 31 ESRD on HD hypothyroidism DM dyslipidemia CAD S/P CABG S/P foot surgery Plan continue Azactam, Flagyl, and Daptomycin with HD day 8 (from first negative blood cx which is 06/13/2018); blood cx showing CoNS from 06/12 - source is not clear, 2D echo on 06/12 was not specific for vegetations, repeat blood cx negative - target 10 days of therapy will continue to monitor clinically prognosis is guarded
--- NOTE | 2018-06-20 15:50 | PN ---
DATE: 06/20/2018 SUBJECTIVE: The patient is a 67-year-old female who has no prior psychiatric history. The patient was admitted to ICU and the patient presented to be talkative, confused, disoriented, and talking nonstop that is why Psychiatry was involved. The patient was seen by Dr. Varghese over the weekend. The patient was started on haloperidol and medical team re-consulted this commercial lines underwriter in order to discontinue haloperidol in order to have cardiac catheterization yesterday. This commercial lines underwriter suggested to discontinue haloperidol and as needed Seroquel 12.5 mg to help with the delirium. The patient was seen today in ICU. The patient presented in very good spirit. The patient reported that she feels much better. The patient denied that she feels depressed or hopeless or helpless. The patient reported that depression is not in her vocabulary. The patient reported that she does not hear any voices. She does not see anything unusual. This commercial lines underwriter educated the patient about risks, benefits, alternatives of the Seroquel and the patient agreed to take that medication. The patient reported that she slept well. The patient is aware that this medication is antipsychotic and will help her with delirium symptoms. The patient denied feeling anxious, denied hopelessness or helplessness. The patient denied previous history of being depressed or suicidal attempts. OBJECTIVE: VITAL SIGNS: Seems to be stable. Pulse is 68, blood pressure 106/58, respiration is 10, oxygen saturation is 100. MEDICATIONS: Reviewed. In regards of the psychotropic medication, the patient is only on Ativan 0.5 mg every 6 hours as needed for agitation which she did not take and 2 mg IV push as needed, which the patient took on the 06/12/2018. The patient also is on Seroquel 12.5 mg at the nighttime as needed. The patient got only one dose and will continue with that medication. LABORATORY DATA: Reviewed, most recent was from today. MENTAL STATUS EXAM: The patient appears to be alert, very pleasant. Good eye contact. Mood described as I feel much better. Affect was reactive, mood congruent. Thought process was coherent and goal directed. Thought content, the patient denied visual, auditory, tactile hallucinations. Denied paranoid ideation. The patient denied thoughts of harming herself or others. Denied intent or plan. Insight and judgment seems to be improving. Impulses are well controlled. IMPRESSION: Most likely the patient was in delirium stage which is improving. The patient has multiple medical issues. Please see medical team notes for more detailed information. PLAN: Continue current management. Continue current medications. Seroquel only as needed 12.5 mg at the nighttime for episodes of confusion, sundowning and agitation. The patient is aware about that medication and if the patient will not take p.r.n. medication for 3 or 7 days it will be safely discontinued. Meanwhile, the patient pose no imminent danger to self or others. Please re-consult as needed. Discussed with medical psychotherapist and nursing staff. Should you have any questions give me a call back. There is no acute psychiatric issues. This commercial lines underwriter will sign off. Lakesha Gee MD
--- NOTE | 2018-06-20 19:26 | PN ---
DATE: 06/20/2018 SUBJECTIVE: The patient is seen out of bed to chair in ICU bed 5. The patient is alert, awake, responsive, oriented to person, place, year, and month.. Overnight nurse's notes were reviewed. The patient was found to be alert, awake, oriented x2 yesterday. The patient was seen in the morning hours. PHYSICAL EXAMINATION: VITAL SIGNS: T-max is 98.3. Telemetry shows intermittent paced rhythm with normal sinus rhythm. Blood pressure 112/63, 109/73, 121/57, 116/63. Respiration 19. O2 sat 99-100%. HEENT: Head normocephalic, atraumatic. Shows positive right IJ triple-lumen catheter. Pinkish pale conjunctivae. NECK: No neck rigidity. CHEST: Showed median sternotomy surgical scar. Positive left upper chest pacemaker. Questionable decreased breath sound at the bases. CARDIOVASCULAR: Shows S1, S2. Positive systolic murmur left sternal border, right second intercostal space, left second intercostal space. ABDOMEN: Protuberant, obese. Positive bowel sound. GENITALIA: Female. RECTAL: Deferred. EXTREMITIES: Shows positive pitting edema of the lower extremity. The patient does not have SCDs on and the patient is keeping her legs dangling while sitting. MUSCULOSKELETAL: Shows a body mass index of 33.6. DIAGNOSTICS: On 06/20/2018, WBC 10.5, hemoglobin and hematocrit 10.2 and 32, platelet 126. Fibrinogen 167. Sodium 136; potassium 3.5; chloride 98; CO2 25; anion gap 17; BUN 44; creatinine 4.5; GFR 10; glucose 210, 254, 260, yesterday glucose was 421, 431; calcium 7.2; phosphorus 3.9; magnesium 2. LFTs are normal. Stool occult blood repeat is not done. Serum immunofixation none detected. Right foot cultures, coagulase-negative staph. The patient received 1 unit of PRBC. IMPRESSION AND PLAN: 1. Hypotensive hypovolemic septic versus cardiogenic shock. 2. Encephalopathy with episodic confusion and agitation. 3. Non-ST elevation myocardial infarction with elevated troponin. 4. End-stage renal disease, hemodialysis dependent. 5. Diabetic hypertensive chronic kidney disease. 6. Anemia. 7. Secondary hyperparathyroidism. 8. Hyperphosphatemia. 9. Thrombocytopenia. 10. Calvarium and bony lytic and sclerotic lesion. 11. Right breast cellulitis versus right breast peau d'orange. 12. Lactic acidosis. 13. Questionable upper gastrointestinal bleeding secondary to possible iatrogenic coagulopathy with fecal occult blood positive. 14. Moderate to severe mitral regurgitation with right ventricular dysfunction. 15. Status post packed red blood cell transfusion. 16. The right fifth digit laceration. 17. Bilateral lower extremity and foot diabetic foot wound. 18. Right foot coagulase-negative Staphylococcus aureus diabetic foot ulceration. 19. Left foot Staphylococcus epidermidis diabetic foot ulceration. 20. Coagulase-negative Staphylococcus aureus bacteremia and sepsis. 21. Hypotension (resolving). 22. Normocytic anemia. 23. Leukocytosis with granulocytosis. 24. Elevated erythrocyte sedimentation rate. 25. Iatrogenic coagulopathy. 26. Lactic acidosis. 27. Hyperglycemia. 28.Hypothyroidism with elevated thyroid stimulating hormone. 29. Hypovitaminosis D. 30. Insulin-requiring diabetes mellitus uncontrolled with elevated fructosamine of 477. 31. Right bundle-branch block. 32. Intermittent paroxysmal atrial fibrillation with junctional escape rhythm. 33. Permanent pacemaker implant. 34. Left axis deviation. 35. Age indeterminate anterolateral inferior infarct. 36. First degree atrioventricular block, right bundle branch block, left anterior hemiblock, trifascicular block. 37. Anterolateral coronary ischemia. 38. Adjustment disorder. 39. Anxiety and mood disorder. 40. Delirium. 41. Episodic confusion and disorientation. 42. Moderate oropharyngeal dysphagia with risk for aspiration, resolving. PLAN: Plan at this time, we are awaiting further recommendation by Cardiology regarding cardiac intervention. The patient was seen by Gastroenterology, Dr. Terry yesterday, GI recommendations were noted. The patient was cleared by Gastroenterology with monitoring of serial hemoglobin and hematocrit. The patient is to be continued on hemodialysis as per Nephrology recommendation. The patient has been ordered repeat labs. The patient's current consultation Cardiology, Gastroenterology, Hematology/Oncology, Infectious Disease, Nephrology, Neurology, Podiatry and Psychiatry. Current medications, Ativan 0.5 mg p.o. every 6 hours p.r.n., Azactam 500 IV every 12 hours, Bactroban cream to the affected area, Colace 100 mg three times a day, Cubicin 560 mg every 48 hours, Flagyl 500 p.o. every 8 hours, heparin 5000 subcu every 8 hours, Humulin low-dose sliding scale coverage, Lipitor 80 mg at bedtime, Nephro-Jose Miguel 1 tablet daily, Percocet 5/325 one tablet every 6 hours p.r.n., ProAmatine 10 mg three times a day, Protonix 40 mg every 12 hours, Renagel 800 mg three times a day, Senokot 17.2 mg at bedtime, Sensipar 30 mg daily, Seroquel 12.5 mg at bedtime p.r.n., Silvadene cream to the affected area, Solu-Cortef is decreased to 25 mg IV daily, Synthroid 12.5 mcg IV daily, Tylenol p.r.n., Zofran 4 mg IV every 4 hours p.r.n. The patient has been reordered SCDs. Plan at this time, as mentioned, we are awaiting Cardiology recommendation for cardiac intervention. The patient was cleared by GI to proceed with cardiac catheterization with monitoring of serial hemoglobin and hematocrits. Dictated and electronically signed, not read. Jimy Simeon MD
--- NOTE | 2018-06-20 22:26 | CP.PCM.PN ---
Subjective - Date & Time of Evaluation Date of Evaluation: 06/20/18 Time of Evaluation: 18:00 - Subjective Subjective: Appears comfortable. Objective - Vital Signs/Intake and Output Vital Signs (last 24 hours): Temp Pulse Resp BP Pulse Ox 98.4 F 74 20 134/74 87 L 06/20/18 18:00 06/20/18 18:00 06/20/18 18:00 06/20/18 18:00 06/20/18 16:00 Intake and Output: 06/20/18 06/21/18 18:59 06:59 Intake Total 240 Balance 240 - Medications Medications: Current Medications Acetaminophen (Tylenol 325mg Tab) 650 mg PO Q6 PRN PRN Reason: TEMP>=99.5F Last Admin: 06/11/18 12:02 Dose: 650 mg Acetaminophen (Tylenol 650 Mg Supp) 650 mg RC Q6H PRN PRN Reason: TEMP>=99.5F Acetaminophen (Tylenol 650 Mg Supp) 650 mg RC Q6H PRN PRN Reason: Headache Acetaminophen (Tylenol 325mg Tab) 650 mg PO Q6 PRN PRN Reason: Headache Last Admin: 06/16/18 16:53 Dose: 650 mg Atorvastatin Calcium (Lipitor) 80 mg PO HS [facility] Last Admin: 06/19/18 21:23 Dose: 80 mg Cinacalcet (Sensipar) 30 mg PO DIN [facility] Last Admin: 06/20/18 18:12 Dose: 30 mg Docusate Sodium (Colace) 100 mg PO TID [facility] Last Admin: 06/20/18 18:12 Dose: 100 mg Heparin Sodium (Porcine) (Heparin) 5,000 units SC Q8 [facility]; Protocol Last Admin: 06/20/18 14:52 Dose: 5,000 units Hydrocortisone Sodium Succinate (Solu-Cortef) 25 mg IVP DAILY [facility] Last Admin: 06/20/18 09:10 Dose: 25 mg Dopamine HCl/Dextrose (Dopamine 400mg/250ml D5w) 400 mg in 250 mls @ 16.074 mls/hr IV .[id number] PRN; Protocol PRN Reason: TITRATE TO KEEP SBP>=100 MMHG Aztreonam 500 mg/ Sodium (Chloride) 100 mls @ 100 mls/hr IVPB Q12H [facility]; Protocol Stop: 06/27/18 12:16 Last Admin: 06/20/18 14:33 Dose: 100 mls/hr Daptomycin 560 mg/ Sodium (Chloride) 100 mls @ 200 mls/hr IV Q48H [facility] Stop: 07/02/18 12:31 Last Admin: 06/20/18 14:32 Dose: 200 mls/hr Insulin Human Regular (Humulin R Low) 0 units SC ACHS [facility]; Protocol Last Admin: 06/20/18 18:14 Dose: Not Given Levothyroxine Sodium (Synthroid) 12.5 mcg IVP DAILY [facility] Last Admin: 06/20/18 09:11 Dose: 12.5 mcg Lorazepam (Ativan) 2 mg IVP ONCE PRN; Protocol PRN Reason: Agitation Last Admin: 06/12/18 19:56 Dose: 2 mg Lorazepam (Ativan) 0.5 mg PO Q6 PRN; Protocol PRN Reason: Agitation Metronidazole (Flagyl) 500 mg PO Q8 [facility]; Protocol Stop: 06/27/18 14:01 Last Admin: 06/20/18 14:48 Dose: 500 mg Midodrine (Proamatine) 10 mg PO TID [facility] Mupirocin (Bactroban Ointment) 0 gm TOP BID [facility] Last Admin: 06/20/18 18:13 Dose: 1 applic Ondansetron HCl (Zofran Inj) 4 mg IVP Q4H PRN PRN Reason: Nausea/Vomiting Oxycodone/Acetaminophen (Percocet 5/325 Mg Tab) 1 tab PO Q6H PRN PRN Reason: Pain, severe (8-10) Stop: 06/23/18 11:42 Last Admin: 06/20/18 19:50 Dose: 1 tab Pantoprazole Sodium (Protonix Inj) 40 mg IVP Q12 [facility] Last Admin: 06/20/18 09:11 Dose: 40 mg Quetiapine Fumarate (Seroquel) 12.5 mg PO HS PRN; Protocol PRN Reason: agiation/psychosis Last Admin: 06/19/18 21:22 Dose: 12.5 mg Sennosides (Senokot Tab) 17.2 mg PO HS [facility] Last Admin: 06/19/18 21:47 Dose: 17.2 mg Sevelamer HCl (Renagel) 800 mg PO TID [facility] Last Admin: 06/20/18 18:12 Dose: 800 mg Silver Sulfadiazine (Silvadene 1% 25 Gm) 1 gm TP DAILY [facility] Last Admin: 06/18/18 11:50 Dose: 1 gm Sodium Bicarbonate (Sodium Bicarbonate 8.4% (50 Meq) Syringe) 50 meq IVP ONCE PRN PRN Reason: Other Vitamin B Complex/Vit C/Folic Acid (Nephro-Jose Miguel) 1 tab PO DAILY [facility] Last Admin: 06/20/18 09:12 Dose: 1 tab - Labs Labs: 06/20/18 06:15 06/20/18 06:15 PT 16.8 SECONDS (9.4-12.5) H 06/19/18 12:50 INR 1.49 06/19/18 12:50 APTT 28.7 Seconds (26.9-38.3) 06/19/18 12:50 - Head Exam Head Exam: ATRAUMATIC - Eye Exam Eye Exam: Normal appearance - ENT Exam ENT Exam: Mucous Membranes Dry - Respiratory Exam Respiratory Exam: NORMAL BREATHING PATTERN - Cardiovascular Exam Cardiovascular Exam: +S1, +S2 - GI/Abdominal Exam GI & Abdominal Exam: Normal Bowel Sounds Assessment and Plan (1) Thrombocytopenia Assessment & Plan: improving resolving DIC Status: Acute (2) Anemia Assessment & Plan: chronic disease anemia of CKD Status: Acute (3) Coagulopathy Assessment & Plan: resolving DIC Status: Acute (4) Lytic bone lesions on xray Assessment & Plan: myeloma w/u negative breast thickening ? cellulitis vs malignancy outpatient PET CT Status: Acute
[2018-06-21] MEDS: Oxycodone/Acetaminophen 5/325 mg Tab PO PRN (04:02)
[2018-06-21 07:58] LABS: EOS # 0.1 (0.0-0.7); EOS % 1.3 % (1.5-5.0); HEMOGLOBIN 10.2 g/dL (12.0-16.0); LYMPH # 0.5 (1.2-3.4); LYMPH % 4.4 % (22.0-35.0); MEAN CORPUSCULAR HEMOGLOBIN 30.6 pg (25.0-35.0); MEAN CORPUSCULAR HGB CONC 32.6 g/dl (31.0-37.0); MEAN PLATELET VOLUME 10.3 fl (7.0-11.0); MONO # 1.1 (0.1-0.6); MONO % 10.4 % (1.0-6.0); PLATELET COUNT 85 10^3/uL (120.0-450.0); RBC 3.33 10^6/uL (3.5-6.1); WHITE BLOOD COUNT 10.3 10^3/uL (4.5-11.0)
[2018-06-21 08:11] LABS: ALBUMIN 3.5 g/dL (3.0-4.8); CALCIUM 7.2 mg/dL (8.4-10.5)
[2018-06-21 08:27] LABS: PLATELET COUNT MANUAL 95 K/mm3 (120-450)
[2018-06-21 08:43] LABS: EOSINOPHIL 1 % (0.0-3.0); LYMPHOCYTE 5 % (22.0-35.0); MONOCYTE 2 % (1.0-6.0); NEUTROPHIL 92 % (50.0-70.0)
[2018-06-21 08:44] LABS: PLATELET ESTIMATE LOW (NORMAL)
[2018-06-21] MEDS: Insulin Reg-LOW-Coverage SC SCH ×2 (09:20→12:49)
[2018-06-21] MEDS: Multivitamin Vitamin B Complex (Nephro-Vite) Tab PO SCH (12:44)
[2018-06-21] MEDS: Mupirocin 2% Ointment 15 GM TUBE TOP SCH ×2 (12:45→19:06)
[2018-06-21] MEDS: Silver Sulfadiazine 1% Cream (25 gm) TP SCH (12:48)
[2018-06-21] MEDS: Levothyroxine 100 mcg (0.1 mg) Inj IVP SCH (12:49)
--- NOTE | 2018-06-21 13:29 | CP.PCM.PN ---
Subjective - Date & Time of Evaluation Date of Evaluation: 06/21/18 Time of Evaluation: 10:40 - Subjective Subjective: Afebrile, not in distress. Objective - Vital Signs/Intake and Output Vital Signs (last 24 hours): Temp Pulse Resp BP Pulse Ox 97.7 F 76 19 112/63 99 06/19/18 12:00 06/20/18 12:40 06/20/18 12:40 06/20/18 12:40 06/20/18 12:40 - Medications Medications: Current Medications Acetaminophen (Tylenol 325mg Tab) 650 mg PO Q6 PRN PRN Reason: TEMP>=99.5F Last Admin: 06/11/18 12:02 Dose: 650 mg Acetaminophen (Tylenol 650 Mg Supp) 650 mg RC Q6H PRN PRN Reason: TEMP>=99.5F Acetaminophen (Tylenol 650 Mg Supp) 650 mg RC Q6H PRN PRN Reason: Headache Acetaminophen (Tylenol 325mg Tab) 650 mg PO Q6 PRN PRN Reason: Headache Last Admin: 06/16/18 16:53 Dose: 650 mg Atorvastatin Calcium (Lipitor) 80 mg PO HS [facility] Last Admin: 06/19/18 21:23 Dose: 80 mg Cinacalcet (Sensipar) 30 mg PO DIN [facility] Last Admin: 06/19/18 17:21 Dose: 30 mg Docusate Sodium (Colace) 100 mg PO TID [facility] Last Admin: 06/20/18 09:12 Dose: 100 mg Heparin Sodium (Porcine) (Heparin) 5,000 units SC Q8 [facility]; Protocol Last Admin: 06/20/18 06:54 Dose: 5,000 units Hydrocortisone Sodium Succinate (Solu-Cortef) 25 mg IVP DAILY [facility] Last Admin: 06/20/18 09:10 Dose: 25 mg Dopamine HCl/Dextrose (Dopamine 400mg/250ml D5w) 400 mg in 250 mls @ 16.074 mls/hr IV .[id number] PRN; Protocol PRN Reason: TITRATE TO KEEP SBP>=100 MMHG Aztreonam 500 mg/ Sodium (Chloride) 100 mls @ 100 mls/hr IVPB Q12H [facility]; Protocol Stop: 06/27/18 12:16 Last Admin: 06/20/18 00:00 Dose: 100 mls/hr Daptomycin 560 mg/ Sodium (Chloride) 100 mls @ 200 mls/hr IV Q48H [facility] Stop: 07/02/18 12:31 Last Admin: 06/18/18 13:40 Dose: 200 mls/hr Insulin Human Regular (Humulin R Low) 0 units SC ACHS [facility]; Protocol Last Admin: 06/20/18 12:15 Dose: Not Given Levothyroxine Sodium (Synthroid) 12.5 mcg IVP DAILY [facility] Last Admin: 06/20/18 09:11 Dose: 12.5 mcg Lorazepam (Ativan) 2 mg IVP ONCE PRN; Protocol PRN Reason: Agitation Last Admin: 06/12/18 19:56 Dose: 2 mg Lorazepam (Ativan) 0.5 mg PO Q6 PRN; Protocol PRN Reason: Agitation Metronidazole (Flagyl) 500 mg PO Q8 [facility]; Protocol Stop: 06/27/18 14:01 Last Admin: 06/20/18 06:54 Dose: 500 mg Midodrine (Proamatine) 10 mg PO TID [facility] Last Admin: 06/20/18 09:11 Dose: 10 mg Mupirocin (Bactroban Ointment) 0 gm TOP BID [facility] Last Admin: 06/20/18 10:21 Dose: 1 applic Ondansetron HCl (Zofran Inj) 4 mg IVP Q4H PRN PRN Reason: Nausea/Vomiting Oxycodone/Acetaminophen (Percocet 5/325 Mg Tab) 1 tab PO Q6H PRN PRN Reason: Pain, severe (8-10) Stop: 06/23/18 11:42 Pantoprazole Sodium (Protonix Inj) 40 mg IVP Q12 [facility] Last Admin: 06/20/18 09:11 Dose: 40 mg Quetiapine Fumarate (Seroquel) 12.5 mg PO HS PRN; Protocol PRN Reason: agiation/psychosis Last Admin: 06/19/18 21:22 Dose: 12.5 mg Sennosides (Senokot Tab) 17.2 mg PO HS [facility] Last Admin: 06/19/18 21:47 Dose: 17.2 mg Sevelamer HCl (Renagel) 800 mg PO TID [facility] Last Admin: 06/20/18 12:13 Dose: 800 mg Silver Sulfadiazine (Silvadene 1% 25 Gm) 1 gm TP DAILY [facility] Last Admin: 06/18/18 11:50 Dose: 1 gm Sodium Bicarbonate (Sodium Bicarbonate 8.4% (50 Meq) Syringe) 50 meq IVP ONCE PRN PRN Reason: Other Vitamin B Complex/Vit C/Folic Acid (Nephro-Jose Miguel) 1 tab PO DAILY [facility] Last Admin: 06/20/18 09:12 Dose: 1 tab - Labs Labs: 06/20/18 06:15 06/20/18 06:15 PT 16.8 SECONDS (9.4-12.5) H 06/19/18 12:50 INR 1.49 06/19/18 12:50 APTT 28.7 Seconds (26.9-38.3) 06/19/18 12:50 - Constitutional Appears: Chronically Ill - Head Exam Head Exam: NORMAL INSPECTION - Respiratory Exam Respiratory Exam: Decreased Breath Sounds - Cardiovascular Exam Cardiovascular Exam: +S1, +S2 - GI/Abdominal Exam GI & Abdominal Exam: Soft. absent: Tenderness Assessment and Plan - Assessment and Plan (Free Text) Plan: Assessment S/P Hypotension, consider due to right sided heart failure, consider due to GI bleeding, blood pressure has improved coagulase negative staph bacteremia, source not clear right breast cellulitis, slowly improving obesity with BMI 31 ESRD on HD hypothyroidism DM dyslipidemia CAD S/P CABG S/P foot surgery Plan continue Azactam, Flagyl, and we can switch Daptomycin to Vancomycin with HD day 9 (from first negative blood cx which is 06/13/2018); blood cx showing CoNS from 06/12 - source is not clear, 2D echo on 06/12 was not specific for vegetations, repeat blood cx negative - target 10-14 days of therapy will continue to monitor clinically while the patient is in the hospital prognosis is guarded
--- NOTE | 2018-06-21 16:01 | CP.PCM.PN ---
Subjective - Date & Time of Evaluation Date of Evaluation: 06/21/18 Time of Evaluation: 15:48 - Subjective Subjective: Nephrology Consultation Note Assessment: stable Shock ? cardiogenic/septic (GPC) Diabetic chronic Kidney Disease (E11.22) Hypertensive Chronic Kidney Disease (I12.0) End stage renal disease (N18.6) dependence on hemodialysis (Z99.2) (TTS) via AVF Anemia (D64.9), Hyperphosphatemia (E83.39), Secondary Hyperparathyroidism (E21.1), HTN (I12.0) CAD s/p CABG obesity thrombocytopenia Lytic lesions ? underlying malignancy breast cellulitis versus malignancy lactic acidosis, GI bleed RV dysfunction, moderate to severe MR Plan: Will plan for next dialysis per TTS schedule. Continue with Nephrovite 1 tab/day. PRBC as needed for anemia. defer further ADAM as concerns with malignancy, unless okay with heme/onc. Hb 10.2 heme/onc following continue with phos binders, last phos level 3.8 PTH 547 pt off pressors. maintain hemodynamic stable.midodrine increased to 10 mg TID Glycemic control, Dialysis consistent diet Further work up/management as per primary team Dose meds/antibiotics (if needed) for ESRD status. Avoid fleets enema/magnesium based laxatives. ID following overall stable from renal perspective. Thanks for allowing me to participate in care of your patient. Will follow patient with you. Please call if any Qs. had d/w team and family Dr Amrit Malone Office: [phone] Subjective: Noted events overnight. feels well. no complaints. appears much better. c/o chronic back pain Physical Examination: General Appearance: in no acute respiratory distress, better appearing comf ortable pleasant Vitals reviewed and noted as below Head; Atraumatic, normocephalic ENT: no ulcers no thrush. Tongue is midline/dry. Oropharynx: no rash or ulcers. Neck; supple no lymphadenopathy, no thyromegaly or bruit Lungs: Normal respiratory rate/effort. Breath sounds bilateral equal and clear Heart: Normal rate. s1s2 normal. No rub or gallop. Extremities: no Rt edema. No varicose veins. has chronic left leg edema Neurological: Patient is AMS status. mostly non communicative but more respo nsive Skin: Warm and dry. Normal turgor. No rash. Palpitation: Normal elasticity for age Abdomen: Abdomen is soft. Bowel sounds +. There is no abdominal tenderness, no guarding/rigidity or organomegaly Psych: limited insight. normal affect/mood MSK: no joint tenderness or swelling. Digits and nails normal, no deformity : kidney or bladder not palpable Access: AVF 06/12/18: breast examined with RN,Rt breast everardo-areolar swelling fulness ? mass, peau du orange appearance Labs/imaging reviewed. Past medical history, past surgical history, family history, social history, allergy reviewed and noted as below Family Hx: no hx of CKD. Non contributory Objective - Vital Signs/Intake and Output Vital Signs (last 24 hours): Temp Pulse Resp BP Pulse Ox 97.7 F 66 19 119/69 98 06/21/18 12:00 06/21/18 12:00 06/21/18 12:00 06/21/18 12:00 06/21/18 06:00 Intake and Output: 06/21/18 06/21/18 06:59 18:59 Intake Total 340 Balance 340 - Medications Medications: Current Medications Acetaminophen (Tylenol 325mg Tab) 650 mg PO Q6 PRN PRN Reason: TEMP>=99.5F Last Admin: 06/11/18 12:02 Dose: 650 mg Acetaminophen (Tylenol 650 Mg Supp) 650 mg RC Q6H PRN PRN Reason: TEMP>=99.5F Acetaminophen (Tylenol 650 Mg Supp) 650 mg RC Q6H PRN PRN Reason: Headache Acetaminophen (Tylenol 325mg Tab) 650 mg PO Q6 PRN PRN Reason: Headache Last Admin: 06/16/18 16:53 Dose: 650 mg Aspirin (Aspirin Chewable) 81 mg PO DAILY [facility] Cinacalcet (Sensipar) 30 mg PO DIN [facility] Last Admin: 06/20/18 18:12 Dose: 30 mg Docusate Sodium (Colace) 100 mg PO TID [facility] Last Admin: 06/21/18 12:44 Dose: 100 mg Heparin Sodium (Porcine) (Heparin) 5,000 units SC Q8 [facility]; Protocol Last Admin: 06/21/18 06:15 Dose: 5,000 units Hydrocortisone Sodium Succinate (Solu-Cortef) 25 mg IVP DAILY [facility] Last Admin: 06/21/18 12:39 Dose: 25 mg Dopamine HCl/Dextrose (Dopamine 400mg/250ml D5w) 400 mg in 250 mls @ 16.074 mls/hr IV .[id number] PRN; Protocol PRN Reason: TITRATE TO KEEP SBP>=100 MMHG Aztreonam 500 mg/ Sodium (Chloride) 100 mls @ 100 mls/hr IVPB Q12H [facility]; Protocol Stop: 06/27/18 12:16 Last Admin: 06/21/18 12:46 Dose: 100 mls/hr Vancomycin HCl (Vancomycin 750 Mg In Ns) 750 mg in 250 mls @ 167 mls/hr IVPB TTS [facility]; Protocol Stop: 06/27/18 10:01 Insulin Human Lispro (Humalog High) 0 units SC AC [facility]; Protocol Insulin Human NPH (Humulin N) 10 units SC ACB [facility] Insulin Human NPH (Humulin N) 10 units SC DAILY@1745 [facility] Levothyroxine Sodium (Synthroid) 50 mcg PO 0600 [facility] Lorazepam (Ativan) 2 mg IVP ONCE PRN; Protocol PRN Reason: Agitation Last Admin: 06/12/18 19:56 Dose: 2 mg Lorazepam (Ativan) 0.5 mg PO Q6 PRN; Protocol PRN Reason: Agitation Metoprolol Tartrate (Lopressor) 25 mg PO BRKDIN [facility] Metronidazole (Flagyl) 500 mg PO Q8 [facility]; Protocol Stop: 06/27/18 14:01 Last Admin: 06/21/18 06:15 Dose: 500 mg Midodrine (Proamatine) 10 mg PO TID [facility] Last Admin: 06/21/18 12:43 Dose: 10 mg Mupirocin (Bactroban Ointment) 0 gm TOP BID [facility] Last Admin: 06/21/18 12:45 Dose: 1 applic Ondansetron HCl (Zofran Inj) 4 mg IVP Q4H PRN PRN Reason: Nausea/Vomiting Pantoprazole Sodium (Protonix Inj) 40 mg IVP Q12 [facility] Last Admin: 06/21/18 12:39 Dose: 40 mg Quetiapine Fumarate (Seroquel) 12.5 mg PO HS PRN; Protocol PRN Reason: agiation/psychosis Last Admin: 06/20/18 22:18 Dose: 12.5 mg Sennosides (Senokot Tab) 17.2 mg PO HS [facility] Last Admin: 06/20/18 22:15 Dose: 17.2 mg Sevelamer HCl (Renagel) 800 mg PO TID [facility] Last Admin: 06/21/18 12:44 Dose: 800 mg Silver Sulfadiazine (Silvadene 1% 25 Gm) 1 gm TP DAILY [facility] Last Admin: 06/21/18 12:48 Dose: 1 gm Sodium Bicarbonate (Sodium Bicarbonate 8.4% (50 Meq) Syringe) 50 meq IVP ONCE PRN PRN Reason: Other Vitamin B Complex/Vit C/Folic Acid (Nephro-Jose Miguel) 1 tab PO DAILY [facility] Last Admin: 06/21/18 12:44 Dose: 1 tab - Labs Labs: 06/21/18 07:45 06/21/18 07:45 PT 16.8 SECONDS (9.4-12.5) H 06/19/18 12:50 INR 1.49 06/19/18 12:50 APTT 28.7 Seconds (26.9-38.3) 06/19/18 12:50
--- NOTE | 2018-06-21 16:10 | CP.PCM.HP ---
History of Present Illness - History of Present Illness History of Present Illness: H&P for Dr. Blanco Schuster PGY2 Chief complaint: Altered mental status HPI:Patient is a 89 female with a past medical history of hypertension and arthritis who presents with daughter who complains of her mother presenting with a change in mental status evidenced by patient being confused as to where she was. Patient's daughter states this is very unusual for her mother. Patient was recently in the emergency department due to cough and she was found to have bronchitis and was sent home on levaquin. Past Patient History - Infectious Disease Hx of Infectious Diseases: None - Past Social History Smoking Status: Former Smoker - CARDIAC Hx Cardiac Disorders: Yes (Pacemaker x 2, s/p CABG, triple pypass, 5 stents.) Hx Hypertension: Yes - PULMONARY Hx Respiratory Disorders: No - NEUROLOGICAL Hx Neurological Disorder: No - HEENT Hx HEENT Problems: No - RENAL Hx Renal Failure: Yes (ESRD on HD: T, Th, Sa.) - ENDOCRINE/METABOLIC Hx Hypothyroidism: Yes - HEMATOLOGICAL/ONCOLOGICAL Hx Blood Disorders: No - INTEGUMENTARY Hx Dermatological Problems: No - MUSCULOSKELETAL/RHEUMATOLOGICAL Hx Musculoskeletal Disorders: Yes Hx Back Pain: Yes Hx Falls: Yes Hx Unsteady Gait: Yes (walker) - GASTROINTESTINAL Hx Gastrointestinal Disorders: No - GENITOURINARY/GYNECOLOGICAL Hx Genitourinary Disorders: No - PSYCHIATRIC Hx Psychophysiologic Disorder: No Hx Substance Use: No - SURGICAL HISTORY Hx Surgeries: Yes (partial foot amputation, stent placement) Hx Coronary Stent: Yes (5) Other/Comment: right av shunt placement. tonsillectomy - ANESTHESIA Hx Anesthesia: Yes Hx Anesthesia Reactions: No Hx Malignant Hyperthermia: No Meds Home Medications: Home Medication List Medication Instructions Recorded Confirmed Type Acetaminophen [Tylenol 325mg tab] 650 mg PO Q6 PRN tab 06/21/18 Rx Acetaminophen [Tylenol 325mg tab] 650 mg PO Q6 PRN tab 06/21/18 Rx Acetaminophen [Tylenol 650 mg Supp] 650 mg RC Q6H PRN sup 06/21/18 Rx Acetaminophen [Tylenol 650 mg Supp] 650 mg RC Q6H PRN sup 06/21/18 Rx Aspirin [Aspirin Chewable] 81 mg PO DAILY chew 06/21/18 Rx Aztreonam [Azactam] 500 mg IVPB Q12H vial 06/21/18 Rx Docusate [Colace] 100 mg PO TID cap 06/21/18 Rx Insulin Human NPH [Humulin N] 10 units SC ACB ml 06/21/18 Rx Insulin Human NPH [Humulin N] 10 units SC DAILY@1745 ml 06/21/18 Rx Levothyroxine [Synthroid] 50 mcg PO 0600 tab 06/21/18 Rx Metoprolol Tartrate [Lopressor] 25 mg PO BRKDIN tab 06/21/18 Rx Midodrine [Proamatine] 10 mg PO TID tab 06/21/18 Rx Pantoprazole [Protonix Inj] 40 mg IVP Q12 vial 06/21/18 Rx QUEtiapine [Seroquel] 12.5 mg PO HS PRN tab 06/21/18 Rx Sennosides A and B [Senokot Tab] 17.2 mg PO HS tab 06/21/18 Rx Silver Sulfadiazine 1% 25 gm 1 gm TP DAILY cream 06/21/18 Rx [Silvadene 1% 25 gm] Vancomycin [Vancomycin Inj] 750 mg IVPB Q48H #6 vial 06/21/18 Rx Vitamin B Complex/Vit C/Folic 1 tab PO DAILY tab 06/21/18 Rx [Nephro-Jose Miguel] metroNIDAZOLE [Flagyl] 500 mg PO Q8 tab 06/21/18 Rx Allergies/Adverse Reactions: Allergies Allergy/AdvReac Type Severity Reaction Status Date / Time Iodinated Contrast- Oral and Allergy RASH Verified 06/20/18 09:35 IV Dye Penicillins Allergy RASH Verified 06/20/18 09:35 Results - Vital Signs Recent Vital Signs: Last Vital Signs Temp 97.7 F 06/21/18 12:00 Pulse 66 06/21/18 12:00 Resp 19 06/21/18 12:00 BP 119/69 06/21/18 12:00 Pulse Ox 98 06/21/18 06:00 - Labs Result Diagrams: 06/21/18 07:45 06/21/18 07:45 Labs: Laboratory Results - last 24 hr 06/20/18 06/20/18 06/20/18 11:25 15:57 22:13 WBC RBC Hgb Hct MCV MCH MCHC RDW Plt Count Manual Plt Count MPV Neut % (Auto) Lymph % (Auto) [place] % (Auto) Eos % (Auto) Baso % (Auto) Lymph # (Auto) [place] # (Auto) Eos # (Auto) Baso # (Auto) Absolute Neuts (auto) Neutrophils % (Manual) Lymphocytes % (Manual) Monocytes % (Manual) Eosinophils % (Manual) Platelet Evaluation Sodium Potassium Chloride Carbon Dioxide Anion Gap BUN Creatinine Est GFR ( Amer) Est GFR (Non-Af Amer) POC Glucose (mg/dL) 320 H 214 H 425 H* Random Glucose Calcium Phosphorus Magnesium Total Bilirubin Direct Bilirubin AST ALT Alkaline Phosphatase Total Protein Albumin Globulin Albumin/Globulin Ratio 06/21/18 06/21/18 06/21/18 01:54 07:32 07:45 WBC 10.3 RBC 3.33 L Hgb 10.2 L Hct 31.3 L MCV 94.0 MCH 30.6 MCHC 32.6 RDW 19.0 H Plt Count 85 L Manual Plt Count 95 L MPV 10.3 Neut % (Auto) 83.9 H Lymph % (Auto) 4.4 L [place] % (Auto) 10.4 H Eos % (Auto) 1.3 L Baso % (Auto) 0.0 Lymph # (Auto) 0.5 L [place] # (Auto) 1.1 H Eos # (Auto) 0.1 Baso # (Auto) 0.00 Absolute Neuts (auto) 8.64 H Neutrophils % (Manual) 92 H Lymphocytes % (Manual) 5 L Monocytes % (Manual) 2 Eosinophils % (Manual) 1 Platelet Evaluation Low Sodium Potassium Chloride Carbon Dioxide Anion Gap BUN Creatinine Est GFR ( Amer) Est GFR (Non-Af Amer) POC Glucose (mg/dL) 320 H 261 H Random Glucose Calcium Phosphorus Magnesium Total Bilirubin Direct Bilirubin AST ALT Alkaline Phosphatase Total Protein Albumin Globulin Albumin/Globulin Ratio 06/21/18 06/21/18 07:45 12:10 WBC RBC Hgb Hct MCV MCH MCHC RDW Plt Count Manual Plt Count MPV Neut % (Auto) Lymph % (Auto) [place] % (Auto) Eos % (Auto) Baso % (Auto) Lymph # (Auto) [place] # (Auto) Eos # (Auto) Baso # (Auto) Absolute Neuts (auto) Neutrophils % (Manual) Lymphocytes % (Manual) Monocytes % (Manual) Eosinophils % (Manual) Platelet Evaluation Sodium 135 Potassium 3.4 L Chloride 97 L Carbon Dioxide 29 Anion Gap 13 BUN 31 H Creatinine 3.5 H Est GFR ( Amer) 16 Est GFR (Non-Af Amer) 13 POC Glucose (mg/dL) 238 H Random Glucose 208 H Calcium 7.2 L Phosphorus 3.1 Magnesium 2.1 Total Bilirubin 1.2 Direct Bilirubin 1.0 H AST 43 H D ALT 27 Alkaline Phosphatase 101 Total Protein 7.0 Albumin 3.5 Globulin 3.5 Albumin/Globulin Ratio 1.0 L
[2018-06-21] MEDS ORDERED: Insulin Lispro (HUMAlog) HIGH Coverage SC SCH (16:30)
[2018-06-21] MEDS ORDERED: Insulin Human NPH 1 UNITS/0.01 ML SC SCH (17:45)
--- NOTE | 2018-06-21 19:11 | PN ---
DATE: 06/21/2018 CARDIOLOGY SUBJECTIVE: The patient is comfortable in bed. PHYSICAL EXAMINATION: VITAL SIGNS: Blood pressure is 119/69. No angina noted. Heart rate is atrial fibrillation in the 70s. NECK: Negative JVD. LUNGS: Without rales. HEART: S1 and S2. EXTREMITIES: Without edema. LABORATORY DATA: Hemoglobin is 10.2. Chemistries; BUN and creatinine is 31 and 3.5. IMPRESSION: 1. Non-ST elevation myocardial infarction. 2. Renal insufficiency. 3. Anemia. 4. Recent gastrointestinal bleed. 5. Transient hypotension. 6. Diabetes mellitus. PLAN: Given these findings, the patient's non-STEMI will be treated medically given her high risk of complications with her recent GI bleed as well as her renal insufficiency. We will continue treating her medically. Her medications will include beta-blockers and low-dose aspirin. Chan Berman MD
--- NOTE | 2018-06-21 21:26 | CP.PCM.PN ---
Subjective - Date & Time of Evaluation Date of Evaluation: 06/21/18 Time of Evaluation: 13:00 - Subjective Subjective: Feeling better, alert Objective - Vital Signs/Intake and Output Vital Signs (last 24 hours): Temp Pulse Resp BP Pulse Ox 97.5 F L 76 20 124/71 98 06/21/18 18:00 06/21/18 19:04 06/21/18 18:00 06/21/18 19:04 06/21/18 06:00 - Medications Medications: Current Medications Acetaminophen (Tylenol 325mg Tab) 650 mg PO Q6 PRN PRN Reason: TEMP>=99.5F Last Admin: 06/11/18 12:02 Dose: 650 mg Acetaminophen (Tylenol 650 Mg Supp) 650 mg RC Q6H PRN PRN Reason: TEMP>=99.5F Acetaminophen (Tylenol 650 Mg Supp) 650 mg RC Q6H PRN PRN Reason: Headache Acetaminophen (Tylenol 325mg Tab) 650 mg PO Q6 PRN PRN Reason: Headache Last Admin: 06/16/18 16:53 Dose: 650 mg Aspirin (Aspirin Chewable) 81 mg PO DAILY [facility] Cinacalcet (Sensipar) 30 mg PO DIN [facility] Last Admin: 06/21/18 19:06 Dose: 30 mg Docusate Sodium (Colace) 100 mg PO TID [facility] Last Admin: 06/21/18 19:04 Dose: 100 mg Heparin Sodium (Porcine) (Heparin) 5,000 units SC Q8 [facility]; Protocol Last Admin: 06/21/18 15:48 Dose: 5,000 units Hydrocortisone Sodium Succinate (Solu-Cortef) 25 mg IVP DAILY [facility] Last Admin: 06/21/18 12:39 Dose: 25 mg Dopamine HCl/Dextrose (Dopamine 400mg/250ml D5w) 400 mg in 250 mls @ 16.074 mls/hr IV .[id number] PRN; Protocol PRN Reason: TITRATE TO KEEP SBP>=100 MMHG Aztreonam 500 mg/ Sodium (Chloride) 100 mls @ 100 mls/hr IVPB Q12H [facility]; Protocol Stop: 06/27/18 12:16 Last Admin: 06/21/18 12:46 Dose: 100 mls/hr Vancomycin HCl (Vancomycin 750 Mg In Ns) 750 mg in 250 mls @ 167 mls/hr IVPB TTS [facility]; Protocol Stop: 06/27/18 10:01 Insulin Human Lispro (Humalog High) 0 units SC AC [facility]; Protocol Last Admin: 06/21/18 19:03 Dose: 4 units Insulin Human NPH (Humulin N) 10 units SC ACB [facility] Insulin Human NPH (Humulin N) 10 units SC DAILY@1745 [facility] Last Admin: 06/21/18 19:03 Dose: 10 units Levothyroxine Sodium (Synthroid) 50 mcg PO 0600 [facility] Lorazepam (Ativan) 2 mg IVP ONCE PRN; Protocol PRN Reason: Agitation Last Admin: 06/12/18 19:56 Dose: 2 mg Lorazepam (Ativan) 0.5 mg PO Q6 PRN; Protocol PRN Reason: Agitation Metoprolol Tartrate (Lopressor) 25 mg PO BRKDIN [facility] Last Admin: 06/21/18 19:04 Dose: 25 mg Metronidazole (Flagyl) 500 mg PO Q8 [facility]; Protocol Stop: 06/27/18 14:01 Last Admin: 06/21/18 15:49 Dose: 500 mg Midodrine (Proamatine) 10 mg PO TID [facility] Last Admin: 06/21/18 19:04 Dose: 10 mg Mupirocin (Bactroban Ointment) 0 gm TOP BID [facility] Last Admin: 06/21/18 19:06 Dose: 1 applic Ondansetron HCl (Zofran Inj) 4 mg IVP Q4H PRN PRN Reason: Nausea/Vomiting Pantoprazole Sodium (Protonix Inj) 40 mg IVP Q12 [facility] Last Admin: 06/21/18 12:39 Dose: 40 mg Quetiapine Fumarate (Seroquel) 12.5 mg PO HS PRN; Protocol PRN Reason: agiation/psychosis Last Admin: 06/20/18 22:18 Dose: 12.5 mg Sennosides (Senokot Tab) 17.2 mg PO HS [facility] Last Admin: 06/20/18 22:15 Dose: 17.2 mg Sevelamer HCl (Renagel) 800 mg PO TID [facility] Last Admin: 06/21/18 19:04 Dose: 800 mg Silver Sulfadiazine (Silvadene 1% 25 Gm) 1 gm TP DAILY [facility] Last Admin: 06/21/18 12:48 Dose: 1 gm Sodium Bicarbonate (Sodium Bicarbonate 8.4% (50 Meq) Syringe) 50 meq IVP ONCE PRN PRN Reason: Other Vitamin B Complex/Vit C/Folic Acid (Nephro-Jose Miguel) 1 tab PO DAILY [facility] Last Admin: 06/21/18 12:44 Dose: 1 tab - Labs Labs: 06/21/18 07:45 06/21/18 07:45 PT 16.8 SECONDS (9.4-12.5) H 06/19/18 12:50 INR 1.49 06/19/18 12:50 APTT 28.7 Seconds (26.9-38.3) 06/19/18 12:50 - Head Exam Head Exam: ATRAUMATIC - Eye Exam Eye Exam: Normal appearance - ENT Exam ENT Exam: Mucous Membranes Dry - Respiratory Exam Respiratory Exam: NORMAL BREATHING PATTERN - Cardiovascular Exam Cardiovascular Exam: +S1, +S2 - GI/Abdominal Exam GI & Abdominal Exam: Normal Bowel Sounds Assessment and Plan (1) Thrombocytopenia Assessment & Plan: resolving DIC/sepsis Status: Acute (2) Anemia Assessment & Plan: chronic disease anemia of CKD - ok to use ADAM as formal diagnosis of malignancy not made Status: Acute (3) Coagulopathy Assessment & Plan: resolving DIC repeat fibrinogen Status: Acute (4) Lytic bone lesions on xray Assessment & Plan: outpatient PET CT Status: Acute
--- NOTE | 2018-06-21 23:25 | DS ---
FINAL PROGRESS NOTE AND DISCHARGE SUMMARY DATE OF DISCHARGE: 06/21/2018 SUBJECTIVE: Patient is seen in Room 270, Bed 2. PHYSICAL EXAMINATION: VITAL SIGNS: Telemetry shows atrial fibrillation. Heart rate 86, 74, 78, blood pressure 137/78, respiration 20, O2 sat 98%. GENERAL: The patient is seen lying in the bed. The patient is alert, awake, responsive, is able to move upper and lower extremity without assistance. Gait, positive SCDs noted. HEENT: Head examination normocephalic, atraumatic. Pinkish pale conjunctivae, anicteric sclerae. Positive right internal jugular triple-lumen catheter noted. CARDIOVASCULAR: S1, S2, regular rhythm. Positive systolic murmur left sternal border, right second intercostal space, left second intercostal space. LUNGS: No audible crackle, rales, or wheezing. ABDOMEN: Soft. Positive bowel sounds. No palpable hepatosplenomegaly. GENITALIA: Female. Rectal examination is deferred. EXTREMITIES: Positive SCDs. MUSCULOSKELETAL: A body mass index of 35. NEUROLOGIC: Motor strength is 5/5 in upper and lower extremity. Gait examination is not tested. DIAGNOSTICS From June 21, hemoglobin/hematocrit 10.2, 31.3, platelets 95,000. Chemistry; potassium 3.4, BUN 35, creatinine 3.5, glucose 208. Fingerstick blood sugar has been running around 300 and 400, calcium 7.2, phosphorus 3.1, magnesium 2.1, AST 43. IMPRESSION AND PLAN: 1. Hypovolemic hypotensive shock. 2. Cardiogenic versus septic shock with refractory hypotension (resolved). 3. Anemia. 4 Status post packed red blood cell transfusion x1. 5. Leukocytosis. 6. Granulocytosis. 7. Thrombocytopenia. 8. Elevated erythrocyte sedimentation rate of 38. 9. Iatrogenic coagulopathy. 10. Refractory lactic acidosis and increased anion gap metabolic acidosis. 11. End-stage renal disease, hemodialysis dependent. 12. Hypokalemia. 13. Mild transaminitis. 14. Hypovitaminosis D. 15. Hypothyroidism with elevated thyroid stimulating hormone. 16. Questionable upper gastrointestinal bleeding, possibly traumatic upper gastrointestinal bleeding. 17. Fecal occult blood positive. 18. Coagulase-negative Staphylococcus aureus bacteremia and sepsis. 19. Staphylococcus epidermidis left foot diabetic ulceration and coagulase-negative Staphylococcus right foot diabetic ulceration. 20. Questionable disseminated intravascular coagulation. 21. Bony lytic and sclerotic lesions of the calvarium and the bone. 22. Possible right breast cellulitis and peau d'orange. 23. Atrial fibrillation. 24. Coronary artery disease, coronary artery bypass graft. 25. Grade 2 pseudonormal filling dynamics. 26. Severely dilated right ventricle and moderately reduced right ventricular systolic function. 27. [id number]-[id number] mitral regurgitation. 28. Severe tricuspid regurgitation. 29. Inaccurate right ventricular systolic pressure. 30. Intermittent junctional escape rhythm. 32. Right bundle-branch block. 33. Diabetic hypertensive chronic kidney disease. 34. Uncontrolled insulin-requiring diabetes mellitus. 35. Constipation. 36. Hypotension. Plan at this time; the patient will be considered for discharge to subacute rehab under Dr. Simeon's service after the patient's IV antibiotics are stopped and switched over to oral antibiotics. The patient's current medications will be updated. The patient will be started on both basal and sliding scale insulin coverage. The patient will be switched over to p.o., Synthroid. The patient's current medications; Ativan 0.5 mg p.o. every 6 hours p.r.n., Azactam mg 500 IV every 12 hours, Bactroban cream to the affected area, Colace 100 mg three times a day, daptomycin Cubicin 560 mg every 48 hours, Flagyl 500 mg p.o. every 8 hours, heparin 5000 subcutaneous every 8 hours, Humulin low-dose sliding scale coverage a.c. and at bedtime, Lipitor 80 mg daily, Nephro-Jose Miguel 1 tablet daily, midodrine 10 mg three times a day, Protonix 40 mg daily, Renagel 800 mg three times a day, Senokot 17.2 mg at bedtime, Sensipar 30 mg daily, Seroquel 12.5 mg at bedtime p.r.n., Silvadene cream to the affected area, Solu-Cortef down to 25 mg IV daily, Synthroid will be changed to 50 micrograms p.o. daily, Tylenol p.r.n., Zofran 4 mg IV every 4 hours p.r.n. in addition. The patient was seen by the social professionals. The patient has been accepted to [facility] for subacute rehab. Time spent in the discharge process, 45 minutes. Dictated and electronically signed, not read. Jimy Simeon MD [facility] # [id number]
--- NOTE | 2018-06-21 23:27 | CP.PCM.PN ---
Subjective - Date & Time of Evaluation Date of Evaluation: 06/21/18 Time of Evaluation: 23:25 - Subjective Subjective: # 24 angiocath was inserted in left hand after attemtping to insert # 22 failed. Patient has no acute symptoms now and vital signs are stable, is not in distress. Objective - Vital Signs/Intake and Output Vital Signs (last 24 hours): Temp Pulse Resp BP Pulse Ox 97.5 F L 76 20 124/71 98 06/21/18 18:00 06/21/18 19:04 06/21/18 18:00 06/21/18 19:04 06/21/18 06:00 - Medications Medications: Current Medications Acetaminophen (Tylenol 325mg Tab) 650 mg PO Q6 PRN PRN Reason: TEMP>=99.5F Last Admin: 06/11/18 12:02 Dose: 650 mg Acetaminophen (Tylenol 650 Mg Supp) 650 mg RC Q6H PRN PRN Reason: TEMP>=99.5F Acetaminophen (Tylenol 650 Mg Supp) 650 mg RC Q6H PRN PRN Reason: Headache Acetaminophen (Tylenol 325mg Tab) 650 mg PO Q6 PRN PRN Reason: Headache Last Admin: 06/16/18 16:53 Dose: 650 mg Aspirin (Aspirin Chewable) 81 mg PO DAILY [facility] Cinacalcet (Sensipar) 30 mg PO DIN [facility] Last Admin: 06/21/18 19:06 Dose: 30 mg Docusate Sodium (Colace) 100 mg PO TID [facility] Last Admin: 06/21/18 19:04 Dose: 100 mg Heparin Sodium (Porcine) (Heparin) 5,000 units SC Q8 [facility]; Protocol Last Admin: 06/21/18 15:48 Dose: 5,000 units Hydrocortisone Sodium Succinate (Solu-Cortef) 25 mg IVP DAILY [facility] Last Admin: 06/21/18 12:39 Dose: 25 mg Dopamine HCl/Dextrose (Dopamine 400mg/250ml D5w) 400 mg in 250 mls @ 16.074 mls/hr IV .[id number] PRN; Protocol PRN Reason: TITRATE TO KEEP SBP>=100 MMHG Aztreonam 500 mg/ Sodium (Chloride) 100 mls @ 100 mls/hr IVPB Q12H [facility]; Protocol Stop: 06/27/18 12:16 Last Admin: 06/21/18 12:46 Dose: 100 mls/hr Vancomycin HCl (Vancomycin 750 Mg In Ns) 750 mg in 250 mls @ 167 mls/hr IVPB TTS [facility]; Protocol Stop: 06/27/18 10:01 Insulin Human Lispro (Humalog High) 0 units SC AC [facility]; Protocol Last Admin: 06/21/18 19:03 Dose: 4 units Insulin Human NPH (Humulin N) 10 units SC ACB [facility] Insulin Human NPH (Humulin N) 10 units SC DAILY@1745 [facility] Last Admin: 06/21/18 19:03 Dose: 10 units Levothyroxine Sodium (Synthroid) 50 mcg PO 0600 [facility] Lorazepam (Ativan) 2 mg IVP ONCE PRN; Protocol PRN Reason: Agitation Last Admin: 06/12/18 19:56 Dose: 2 mg Lorazepam (Ativan) 0.5 mg PO Q6 PRN; Protocol PRN Reason: Agitation Metoprolol Tartrate (Lopressor) 25 mg PO BRKDIN [facility] Last Admin: 06/21/18 19:04 Dose: 25 mg Metronidazole (Flagyl) 500 mg PO Q8 [facility]; Protocol Stop: 06/27/18 14:01 Last Admin: 06/21/18 15:49 Dose: 500 mg Midodrine (Proamatine) 10 mg PO TID [facility] Last Admin: 06/21/18 19:04 Dose: 10 mg Mupirocin (Bactroban Ointment) 0 gm TOP BID [facility] Last Admin: 06/21/18 19:06 Dose: 1 applic Ondansetron HCl (Zofran Inj) 4 mg IVP Q4H PRN PRN Reason: Nausea/Vomiting Pantoprazole Sodium (Protonix Inj) 40 mg IVP Q12 [facility] Last Admin: 06/21/18 12:39 Dose: 40 mg Quetiapine Fumarate (Seroquel) 12.5 mg PO HS PRN; Protocol PRN Reason: agiation/psychosis Last Admin: 06/20/18 22:18 Dose: 12.5 mg Sennosides (Senokot Tab) 17.2 mg PO HS [facility] Last Admin: 06/20/18 22:15 Dose: 17.2 mg Sevelamer HCl (Renagel) 800 mg PO TID [facility] Last Admin: 06/21/18 19:04 Dose: 800 mg Silver Sulfadiazine (Silvadene 1% 25 Gm) 1 gm TP DAILY [facility] Last Admin: 06/21/18 12:48 Dose: 1 gm Sodium Bicarbonate (Sodium Bicarbonate 8.4% (50 Meq) Syringe) 50 meq IVP ONCE PRN PRN Reason: Other Vitamin B Complex/Vit C/Folic Acid (Nephro-Jose Miguel) 1 tab PO DAILY [facility] Last Admin: 06/21/18 12:44 Dose: 1 tab - Labs Labs: 06/21/18 07:45 06/21/18 07:45 PT 16.8 SECONDS (9.4-12.5) H 06/19/18 12:50 INR 1.49 06/19/18 12:50 APTT 28.7 Seconds (26.9-38.3) 06/19/18 12:50
[2018-06-22 02:08] VITALS: BP 124/75; PULSE 70; RESP 18; TEMP 97.7; O2SAT 95
[2018-06-22] MEDS ORDERED: Levothyroxine 50 MCG TAB PO SCH (06:00)
[2018-06-22] MEDS ORDERED: Insulin Human NPH 1 UNITS/0.01 ML SC SCH (07:30)
[2018-06-22] MEDS ORDERED: Vancomycin 750mg 750 MG/250 ML BAG IVPB SCH (10:00)
--- NOTE | 2018-06-22 15:48 | CP.PCM.PCO ---
Assessment/Plan - Assessment/Plan Assessment (Free Text): Discussed with patient and son finding of lytic lesions on CT scan. Discussed in full detail that malignancy cannot be ruled out considering patient's presenting symptom of back pain and strong family history of cancer, as well as patient's history of upper and lower GI bleeds. Patient states she was told by her PMD that she would need to have a colonoscopy done 5 months ago when she first presented to him with complaints of bloody bowel movements. As per patient her last colonoscopy was 5 years go and there were no abnormal findings. Also told patient to follow up with a mammogram considering her recent breast presentation. - Consults Consult Orders: Consultations 06/11/18 02:12 Nursing Referral for Wound Care Routine Comment: Physician Instructions: Reason For Exam: foot ulcer 06/11/18 02:45 TCU [Evaluation for TRCU] DAILY Comment: TCU Physician Instructions: TCU Reason For Exam: TCU 06/12/18 02:45 TCU [Evaluation for TRCU] DAILY Comment: TCU Physician Instructions: TCU Reason For Exam: TCU 06/13/18 02:45 TCU [Evaluation for TRCU] DAILY Comment: TCU Physician Instructions: TCU Reason For Exam: TCU 06/14/18 02:45 TCU [Evaluation for TRCU] DAILY Comment: TCU Physician Instructions: TCU Reason For Exam: TCU 06/15/18 02:45 TCU [Evaluation for TRCU] DAILY Comment: TCU Physician Instructions: TCU Reason For Exam: TCU 06/16/18 02:45 TCU [Evaluation for TRCU] DAILY Comment: TCU Physician Instructions: TCU Reason For Exam: TCU 06/17/18 02:45 TCU [Evaluation for TRCU] DAILY Comment: TCU Physician Instructions: TCU Reason For Exam: TCU 06/18/18 02:45 TCU [Evaluation for TRCU] DAILY Comment: TCU Physician Instructions: TCU Reason For Exam: TCU 06/19/18 02:45 TCU [Evaluation for TRCU] DAILY Comment: TCU Physician Instructions: TCU Reason For Exam: TCU 06/20/18 02:45 TCU [Evaluation for TRCU] DAILY Comment: TCU Physician Instructions: TCU Reason For Exam: TCU 06/21/18 02:45 TCU [Evaluation for TRCU] DAILY Comment: TCU Physician Instructions: TCU Reason For Exam: TCU
== END 2018-06-22 01:37 | DRG 280 ==
LOC: ED 22:36 → ERH 06-11 00:21 → 3RNO 06-11 01:21 → ICU 06-12 10:45 → 2RSO 06-20 17:04
PROVIDERS: ADMIT Internal Medicine; ATTEND Internal Medicine
PROC: 5A1D70Z Performance of Urinary Filtration, Intermittent, Less than 6 Hours Per Day (ICD-10-PCS; 2018-06-11)
PROC: 30233N1 Transfusion of Nonautologous Red Blood Cells into Peripheral Vein, Percutaneous Approach (ICD-10-PCS; 2018-06-11)
PROC: 02HV33Z Insertion of Infusion Device into Superior Vena Cava, Percutaneous Approach (ICD-10-PCS; principal; 2018-06-12)
PROC: 3E043XZ Introduction of Vasopressor into Central Vein, Percutaneous Approach (ICD-10-PCS; 2018-06-12)
PROC: B543ZZA Ultrasonography of Right Jugular Veins, Guidance (ICD-10-PCS; 2018-06-12)
PROC: 5A1D70Z Performance of Urinary Filtration, Intermittent, Less than 6 Hours Per Day (ICD-10-PCS; 2018-06-13)
PROC: 5A1D70Z Performance of Urinary Filtration, Intermittent, Less than 6 Hours Per Day (ICD-10-PCS; 2018-06-14)
PROC: 5A1D70Z Performance of Urinary Filtration, Intermittent, Less than 6 Hours Per Day (ICD-10-PCS; 2018-06-16)
PROC: 5A1D70Z Performance of Urinary Filtration, Intermittent, Less than 6 Hours Per Day (ICD-10-PCS; 2018-06-17)
PROC: 5A1D70Z Performance of Urinary Filtration, Intermittent, Less than 6 Hours Per Day (ICD-10-PCS; 2018-06-20)
DX: I13.2 Hypertensive heart and chronic kidney disease with heart failure and with stage 5 chronic kidney disease, or end stage renal disease (principal); N18.6 End stage renal disease; I21.4 Non-ST elevation (NSTEMI) myocardial infarction; R57.0 Cardiogenic shock; A41.01 Sepsis due to Methicillin susceptible Staphylococcus aureus; I50.31 Acute diastolic (congestive) heart failure; R65.21 Severe sepsis with septic shock; G92 Toxic encephalopathy; D65 Disseminated intravascular coagulation [defibrination syndrome]; R57.1 Hypovolemic shock; N25.81 Secondary hyperparathyroidism of renal origin; J98.11 Atelectasis; I47.2 Ventricular tachycardia; E87.2 Acidosis; K92.2 Gastrointestinal hemorrhage, unspecified; I50.811 Acute right heart failure; I42.9 Cardiomyopathy, unspecified; N61.0 Mastitis without abscess; E11.22 Type 2 diabetes mellitus with diabetic chronic kidney disease; E11.65 Type 2 diabetes mellitus with hyperglycemia; I25.10 Atherosclerotic heart disease of native coronary artery without angina pectoris; E83.39 Other disorders of phosphorus metabolism; M54.5 Low back pain; E03.9 Hypothyroidism, unspecified; I48.0 Paroxysmal atrial fibrillation; D63.1 Anemia in chronic kidney disease; E11.621 Type 2 diabetes mellitus with foot ulcer; L97.519 Non-pressure chronic ulcer of other part of right foot with unspecified severity; L97.529 Non-pressure chronic ulcer of other part of left foot with unspecified severity; E11.40 Type 2 diabetes mellitus with diabetic neuropathy, unspecified; E11.51 Type 2 diabetes mellitus with diabetic peripheral angiopathy without gangrene; E87.6 Hypokalemia; E87.5 Hyperkalemia; F43.22 Adjustment disorder with anxiety; E55.9 Vitamin D deficiency, unspecified; E83.41 Hypermagnesemia; E66.01 Morbid (severe) obesity due to excess calories; E78.5 Hyperlipidemia, unspecified; I50.82 Biventricular heart failure; G89.4 Chronic pain syndrome; I08.1 Rheumatic disorders of both mitral and tricuspid valves; I27.20 Pulmonary hypertension, unspecified; R13.12 Dysphagia, oropharyngeal phase; K59.00 Constipation, unspecified; L60.0 Ingrowing nail; M19.071 Primary osteoarthritis, right ankle and foot; M21.41 Flat foot [pes planus] (acquired), right foot; Z91.15 Patient's noncompliance with renal dialysis; Z99.2 Dependence on renal dialysis; Z95.810 Presence of automatic (implantable) cardiac defibrillator; Z87.891 Personal history of nicotine dependence; Z95.1 Presence of aortocoronary bypass graft; Z95.5 Presence of coronary angioplasty implant and graft; Z79.4 Long term (current) use of insulin; Z88.0 Allergy status to penicillin; Z68.35 Body mass index [BMI] 35.0-35.9, adult

== ENCOUNTER 2018-07-25 08:58 | Inpatient (IN) | payer MEDICARE, BC, MEDICAID ==
[2018-07-25 09:56] LABS: VENOUS BLOOD GAS BASE EXCESS 8.9 mmol/L (0.0-2.0); VENOUS BLOOD GAS PO2 202 mm/Hg (30-55); VENOUS BLOOD PH 7.75 (7.32-7.43)
--- NOTE | 2018-07-25 10:01 | ED PDOC ---
Arrival/HPI - General Chief Complaint: Altered Mental Status Time Seen by Provider: 07/25/18 09:08 Historian: EMS - Critical Care Critical Care Minutes: 60 minutes - History of Present Illness Narrative History of Present Illness (Text): 07/25/18 09:29 67 y/o F, with a past medical history of CAD s/p CABG and 5 stents, ESRD on HD (Tuesday, , Tuesday), hypertension, hypothyroidism, and diabetes mellitus, presents to the ED from long-term via EMS for evaluation of AMS since prior to arrival. As per EMS, patient was given Bendaryl in an attempt to wear her off of Percocet and subsequently became lethargic. EMS reports administering narcan to patient en route to the hospital with minimal improvement to symptoms. Upon arrival to ED, patient appears lethargic and is unable to respond to verbal stimuli. A more complete HPI is unable to be obtained due to the patient's clinical condition. Time/Duration: Prior to Arrival Symptom Course: Unchanged Activities at Onset: Light Context: Other (intermediate) Past Medical History - Provider Review Nursing Documentation Reviewed: Yes - Travel History Have you recently traveled outside [place] w/in the past 3 mons?: No - Infectious Disease Hx of Infectious Diseases: None - Reproductive Menopause: Yes - Cardiac Hx Cardiac Disorders: Yes (Pacemaker x 2, s/p CABG, triple pypass, 5 stents.) Hx Hypertension: Yes - Pulmonary Hx Respiratory Disorders: No - Neurological Hx Neurological Disorder: No - HEENT Hx HEENT Disorder: No - Renal Hx Renal Failure: Yes (ESRD on HD: , , Sa.) - Endocrine/Metabolic Hx Hypothyroidism: Yes - Hematological/Oncological Hx Blood Disorders: No - Integumentary Hx Dermatological Disorder: No - Musculoskeletal/Rheumatological Hx Musculoskeletal Disorders: Yes Hx Back Pain: Yes Hx Falls: Yes Hx Unsteady Gait: Yes (walker) - Gastrointestinal Hx Gastrointestinal Disorders: No - Genitourinary/Gynecological Hx Genitourinary Disorders: No - Psychiatric Hx Psychophysiologic Disorder: No Hx Substance Use: No - Surgical History Hx Coronary Stent: Yes (5) Other/Comment: right av shunt placement. tonsillectomy - Anesthesia Hx Anesthesia: Yes Hx Anesthesia Reactions: No Hx Malignant Hyperthermia: No Family/Social History - Physician Review Nursing Documentation Reviewed: Yes Family/Social History: Unknown Family HX Smoking Status: Former Smoker Hx Alcohol Use: No Hx Substance Use: No Allergies/Home Meds Allergies/Adverse Reactions: Allergies amitriptyline Allergy (Verified 07/25/18 14:26) RASH Iodinated Contrast- Oral and IV Dye Allergy (Verified 07/25/18 14:26) RASH Penicillins Allergy (Verified 07/25/18 14:26) RASH shellfish derived Allergy (Verified 07/25/18 14:26) RASH Home Medications: Home Meds Medication Instructions Recorded Confirmed Vit B Cplx #11/FA/C/Biot/Zn Ox 1 tab PO DAILY 06/09/18 07/25/18 [Dialyvite with Zinc Tablet] Amino Acids/Protein Hydrolys 30 ml PO BID 07/25/18 07/25/18 [Prosource No Carb Liquid Pkt] Ammonium Lactate 12% [Lac-Hydrin 12 % TOP QSHIFT 07/25/18 07/25/18 12% Lotion (225 g)] Calamine/Zinc Oxide [Calamine 120 applic TOP Q8 PRN 07/25/18 07/25/18 Lotion] Ergocalciferol [Drisdol 50,000 1 cap PO PAOAL 07/25/18 07/25/18 Intl Units Cap] Folic Acid 1 mg PO DAILY 07/25/18 07/25/18 Heparin [Heparin (RENAL)] 5,000 units SC Q8 07/25/18 07/25/18 Insulin Lispro [humALOG] 1 unit SC 07/25/18 Levothyroxine Sodium [Unithroid] 75 mcg PO DAILY 07/25/18 07/25/18 Lidocaine 5% [Lidoderm] 5 % TP DAILY 07/25/18 07/25/18 Mupirocin 2% Cream [Bactroban 1 applic EXT QSHIFT 07/25/18 07/25/18 Cream] Pantoprazole [Protonix EC Tab] 40 mg PO DAILY 07/25/18 07/25/18 Thiamine [Vitamin B1 Tab] 100 mg PO DAILY 07/25/18 07/25/18 Review of Systems - Review of Systems Systems not reviewed;Unavailable: Altered Mental Status (Lethargic) Physical Exam Vital Signs Reviewed: Yes Vital Signs Temp Pulse Resp BP Pulse Ox 07/25/18 09:45 97.7 F 78 16 134/58 L 99 07/25/18 09:05 97.7 F 74 20 134/58 L 96 Temperature: Afebrile Blood Pressure: Normal Pulse: Regular Respiratory Rate: Normal Appearance: Positive for: Other (Sedated) Pain Distress: None Mental Status: Positive for: Lethargic, other (Sedated) - Systems Exam Head: Present: Atraumatic, Normocephalic Mouth: Present: Moist Mucous Membranes Respiratory/Chest: Present: Clear to Auscultation, Good Air Exchange, Decreased Breath Sounds, Other (Several healed surgical scars noted to chest wall). No: Respiratory Distress, Accessory Muscle Use Cardiovascular: Present: Regular Rate and Rhythm, Normal S1, S2. No: Murmurs Abdomen: No: Tenderness, Distention, Peritoneal Signs Upper Extremity: Present: Normal Inspection. No: Cyanosis, Edema Lower Extremity: Present: Normal Inspection. No: Edema Neurological: Present: Other (Unable to respond to verbal stimuli. Spontaneously moves all extremities.) Skin: Present: Warm, Dry, Normal Color. No: Rashes Psychiatric: Present: Lethargic Medical Decision Making ED Course and Treatment: 07/25/18 09:29 Impression: 67 year old female presents to the ED for evaluation of AMS since prior to arrival. Differential Diagnosis included but are not limited to: --Sepsis --Volume overload --Toxic encephalopathy Plan: -- VBG -- CT of head -- Labs -- CXR -- Blood Culture -- Urine Culture -- Urinalysis -- Reassess and disposition Prior Visits: Notes and results from previous visits were reviewed. Progress Notes: 07/25/18 10:29 Labs reviewed with metabolic alkalosis noted on ABG with anemia and elevated BUN/creatinine noted. Discussed preliminary results with Dr. Simeon(PCP) who requests ICU consult as well as intubation if necessary, given patient is a full code. CTH pending. 07/25/18 10:[address] Amrit Malone(nephrology). 07/25/18 10:[address] Malone who states he will place orders for dialysis. Spoke to electromedical equipment technician who is evaluating patient at the bedside. Call placed to pie maker. 07/25/18 11:[address] Alford(pie maker) who requests to see ABG results and will come down to evaluate the patient. - Lab Interpretations Lab Results: pO2 202 mm/Hg (30-55) H 07/25/18 09:40 VBG pH 7.75 (7.32-7.43) H* 07/25/18 09:40 VBG pCO2 19.0 (40-60) L* 07/25/18 09:40 VBG HCO3 26.3 mmol/l (21-28) 03 09:40 VBG Total CO2 26.9 mmol.L (22-28) 07/25/18 09:40 VBG O2 Sat (Calc) 99.8 % (40-65) H 07/25/18 09:40 VBG Base Excess 8.9 mmol/L (0.0-2.0) H 07/25/18 09:40 VBG Potassium 5.0 mmol/L (3.6-5.2) 07/25/18 09:40 Sodium 142.0 mmol/L (132-148) 07/25/18 09:40 Chloride 107.0 mmol/L (98-107) 07/25/18 09:40 Glucose 113 mg/dl (65-105) H 07/25/18 09:40 Lactate 2.2 mmol/L (0.7-2.1) H 07/25/18 09:40 FiO2 21.0 % 07/25/18 09:40 Crit Value Called To Sheila colunga 07/25/18 09:40 Crit Value Called By Vicky noland 07/25/18 09:40 Blood Gas Notified Time 956 07/25/18 09:40 03 09:40 03 09:40 Lab Results 07/25/18 09:40: Free T4 1.85, TSH 3rd Generation Pending 07/25/18 09:40: Sodium 142, Chloride 101, Potassium 4.7, Carbon Dioxide 29, Anion Gap 17, BUN 34 H, Creatinine 6.4 H, Est GFR ( Amer) 8, Est GFR (Non-Af Amer) 7, Random Glucose 112 H, Calcium 9.1, Phosphorus 3.1, Magnesium 2.3 H, Total Bilirubin 1.4 H, AST 62 H D, ALT 27, Alkaline Phosphatase 135 H D, Troponin I 0.06 D, NT-Pro-B Natriuret Pep Pending, Total Protein 7.4, Albumin 3.8, Globulin 3.7, Albumin/Globulin Ratio 1.0 L 07/25/18 09:40: pO2 202 H, VBG pH 7.75 H*, VBG pCO2 19.0 L*, VBG HCO3 26.3, VBG Total CO2 26.9, VBG O2 Sat (Calc) 99.8 H, VBG Base Excess 8.9 H, VBG Potassium 5.0, Sodium 142.0, Chloride 107.0, Glucose 113 H, Lactate 2.2 H, FiO2 21.0, Crit Value Called To Sheila clounga, Crit Value Called By Vicky noland, Blood Gas Notified Time 956, Venous Blood Potassium 5.0 07/25/18 09:40: PT 14.6 H, INR 1.29, APTT 28.2 07/25/18 09:40: WBC 5.5 D, RBC 3.21 L, Hgb 9.7 L, Hct 31.6 L, MCV 98.4 D, MCH 30.2, MCHC 30.7 L, RDW 20.7 H, Plt Count 95 L, MPV 12.1 H, Neut % (Auto) 58.2, Lymph % (Auto) 23.1, [place] % (Auto) 16.5 H, Eos % (Auto) 1.5, Baso % (Auto) 0.7, Lymph # (Auto) 1.3, [place] # (Auto) 0.9 H, Eos # (Auto) 0.1, Baso # (Auto) 0.04, Absolute Neuts (auto) 3.20 I have reviewed the lab results: Yes - RAD Interpretation Narrative RAD Interpretations (Text): 07/25/18 11:21 CT of Head reviewed by radiologist, shows: FINDINGS: HEMORRHAGE: No intracranial hemorrhage. BRAIN: No mass effect or edema. There is a small less than 5 millimeter focal hypodensity at or adjacent to the right caudate head likely represent old lacunar infarct. Mild volume loss and mild chronic microvascular ischemic changes are again noted. VENTRICLES: Unremarkable. No hydrocephalus. CALVARIUM: Unremarkable. PARANASAL SINUSES: Mild mucosal thickening noted in the ethmoid and maxillary sinuses. MASTOID AIR CELLS: Unremarkable as visualized. No inflammatory changes. OTHER FINDINGS: None. IMPRESSION: No evidence of acute intracranial hemorrhage mass effect or midline shift. Dental findings as discussed above. CXR reviewed by radiologist, shows: FINDINGS: LUNGS: The lungs are well inflated. There is severe pulmonary venous congestion and redistribution. PLEURA: No pleural effusions or pneumothorax. CARDIOVASCULAR: Persistent severe cardiomegaly with prominent central vasculature. Post CABG status. No aortic atherosclerotic calcifications present. There is stable position of left-sided permanent pacing device. OSSEOUS STRUCTURES: Within normal limits for the patient's age. VISUALIZED UPPER ABDOMEN: Normal. OTHER FINDINGS: None. IMPRESSION: No active pulmonary disease. Severe cardiomegaly and pulmonary venous congestion. Radiology Orders: 07/25/18 09:29 CHEST PORTABLE [RAD] Stat 07/25/18 09:30 HEAD W/O CONTRAST [CT] Stat Division Chair: Radiologist - EKG Interpretation EKG Interpretation (Text): 07/25/18 09:11 EKG reviewed, shows irregularly irregular rhythm with PVCs @ 77 bpm, RBBB, invert T waves in precordial leads. Interpreted by ED Physician: Yes Type: 12 lead EKG - Scribe Statement The provider has reviewed the documentation as recorded by the Scribe Tre Flynn. All medical record entries made by the Scribe were at my direction and personally dictated by me. I have reviewed the chart and agree that the record accurately reflects my personal performance of the history, physical exam, medical decision making, and the department course for this patient. I have also personally directed, reviewed, and agree with the discharge instructions and disposition. Disposition/Present on Arrival - Present on Arrival Any Indicators Present on Arrival: No History of DVT/PE: No History of Uncontrolled Diabetes: No Urinary Catheter: No History of Decub. Ulcer: No History Surgical Site Infection Following: None - Disposition Have Diagnosis and Disposition been Completed?: Yes Diagnosis: Encounter for dialysis, Altered mental status Disposition: HOSPITALIZED Disposition Time: 11:00 Patient Plan: Admission, ICU Patient Problems: Current Active Problems Problem Status Onset Cirrhosis Acute Encephalopathy Acute Hepatitis C antibody positive in blood Acute Condition: SERIOUS
[2018-07-25 10:02] LABS: BASO # 0.04 K/mm3 (0.0-2.0); BASO % 0.7 % (0.0-3.0); EOS # 0.1 (0.0-0.7); EOS % 1.5 % (1.5-5.0); HEMOGLOBIN 9.7 g/dL (12.0-16.0); LYMPH # 1.3 (1.2-3.4); LYMPH % 23.1 % (22.0-35.0); MEAN CELL VOLUME 98.4 fl (80.0-105.0); MEAN CORPUSCULAR HEMOGLOBIN 30.2 pg (25.0-35.0); MEAN CORPUSCULAR HGB CONC 30.7 g/dl (31.0-37.0); MEAN PLATELET VOLUME 12.1 fl (7.0-11.0); MONO # 0.9 (0.1-0.6); MONO % 16.5 % (1.0-6.0); RBC 3.21 10^6/uL (3.5-6.1); RED CELL DISTRIBUTION WIDTH 20.7 % (11.5-14.5); WHITE BLOOD COUNT 5.5 10^3/uL (4.5-11.0)
[2018-07-25 10:07] LABS: INR 1.29; PARTIAL THROMBOPLASTIN TIME 28.2 Seconds (26.9-38.3); PROTHROMBIN TIME 14.6 SECONDS (9.4-12.5)
[2018-07-25 10:09] LABS: ALBUMIN 3.8 g/dL (3.0-4.8); CALCIUM 9.1 mg/dL (8.4-10.5)
[2018-07-25 10:21] LABS: TROPONIN I 0.06 ng/mL
[2018-07-25 10:26] LABS: FREE T4 1.85 ng/dL (0.78-2.19)
--- NOTE | 2018-07-25 10:52 | RAD ---
Date of service: 07/25/2018 HISTORY: Sepsis Patient COMPARISON: 06/15/2018. FINDINGS: LUNGS: The lungs are well inflated. There is severe pulmonary venous congestion and redistribution. PLEURA: No pleural effusions or pneumothorax. CARDIOVASCULAR: Persistent severe cardiomegaly with prominent central vasculature. Post CABG status. No aortic atherosclerotic calcifications present. There is stable position of left-sided permanent pacing device. OSSEOUS STRUCTURES: Within normal limits for the patient's age. VISUALIZED UPPER ABDOMEN: Normal. OTHER FINDINGS: None. IMPRESSION: No active pulmonary disease. Severe cardiomegaly and pulmonary venous congestion.
--- NOTE | 2018-07-25 10:54 | CT ---
Date of service: 07/25/2018 PROCEDURE: CT HEAD WITHOUT CONTRAST. HISTORY: ams COMPARISON: Comparison is made to the previous study dated 06/15/2018 TECHNIQUE: Axial computed tomography images were obtained through the head/brain without intravenous contrast. Radiation dose: Total exam DLP = 1045.67 mGy-cm. This CT exam was performed using one or more of the following dose reduction techniques: Automated exposure control, adjustment of the mA and/or kV according to patient size, and/or use of iterative reconstruction technique. FINDINGS: HEMORRHAGE: No intracranial hemorrhage. BRAIN: No mass effect or edema. There is a small less than 5 millimeter focal hypodensity at or adjacent to the right caudate head likely represent old lacunar infarct. Mild volume loss and mild chronic microvascular ischemic changes are again noted. VENTRICLES: Unremarkable. No hydrocephalus. CALVARIUM: Unremarkable. PARANASAL SINUSES: Mild mucosal thickening noted in the ethmoid and maxillary sinuses. MASTOID AIR CELLS: Unremarkable as visualized. No inflammatory changes. OTHER FINDINGS: None. IMPRESSION: No evidence of acute intracranial hemorrhage mass effect or midline shift. Dental findings as discussed above.
[2018-07-25 11:23] LABS: ARTERIAL BLOOD GAS HCO3 27.8 mmol/L (21-28); ARTERIAL BLOOD GAS HEMOGLOBIN 9.3 g/dL (11.7-17.4); ARTERIAL BLOOD GAS O2 CONTENT 12.9 ML/dl (15-23); ARTERIAL BLOOD GAS O2 SAT 99.6 % (95-98); ARTERIAL BLOOD GAS PCO2 34 mm/Hg (35-45); ARTERIAL BLOOD GAS PH 7.52 (7.35-7.45); ARTERIAL BLOOD GAS TCO2 28.8 mmol.L (22-28)
[2018-07-25] MEDS ORDERED: Vancomycin 1gm in NS 250ml 1 GM/250 ML BAG IVPB STA (11:30)
[2018-07-25] MEDS ORDERED: MEROPENEM 500 MG in NS 500 MG/50 ML BAG IVPB SCH (11:30)
--- NOTE | 2018-07-25 11:43 | CP.PCM.HP ---
<CelineWilliam - Last Filed: 07/25/18 19:36> History of Present Illness - History of Present Illness History of Present Illness: Medicine H/P (Dr. Simeon): Celine, PGY - 2 Chief Complaint: AMS 67 F with pertinent medical history of CAD s/p CABG and 5 stents, ESRD on HD (Tuesday, , Tuesday), and shelter resident presents with a few hours duration of AMS. Per EMS, patient was lethargic upon their arrival and they gave her Benadryl to reverse its affects (?). They also gave a dose of Narcan. Upon my interview, patient responds to painful stimuli but is otherwise non-responsive. Note that much of the information below is from chart review / patient's mental status. Review of Systems: Elicited but not obtained 06/17 patient's mental status Surg Hx: CABG, Stents Med Hx: CAD s/p CABG and 5 stents, ESRD on HD (TTS), hypertension, hypothyroidism, diabetes mellitus Allergies Amitryptyline, Iodinated contrast, Dye, PCNs Soc Hx: Denies tobacco, ETOH, illicits Home Meds: Reviewed, as per EMR Family Hx: Non-contributory Present on Admission - Present on Admission Any Indicators Present on Admission: No Past Patient History - Infectious Disease Hx of Infectious Diseases: None - Past Social History Smoking Status: Former Smoker - CARDIAC Hx Cardiac Disorders: Yes (Pacemaker x 2, s/p CABG, triple pypass, 5 stents.) Hx Hypertension: Yes - PULMONARY Hx Respiratory Disorders: No - NEUROLOGICAL Hx Neurological Disorder: No - HEENT Hx HEENT Problems: No - RENAL Hx Renal Failure: Yes (ESRD on HD: , , .) - ENDOCRINE/METABOLIC Hx Hypothyroidism: Yes - HEMATOLOGICAL/ONCOLOGICAL Hx Blood Disorders: No - INTEGUMENTARY Hx Dermatological Problems: No - MUSCULOSKELETAL/RHEUMATOLOGICAL Hx Musculoskeletal Disorders: Yes Hx Back Pain: Yes Hx Falls: Yes Hx Unsteady Gait: Yes (walker) - GASTROINTESTINAL Hx Gastrointestinal Disorders: No - GENITOURINARY/GYNECOLOGICAL Hx Genitourinary Disorders: No - PSYCHIATRIC Hx Psychophysiologic Disorder: No Hx Substance Use: No - SURGICAL HISTORY Hx Coronary Stent: Yes (5) Other/Comment: right av shunt placement. tonsillectomy - ANESTHESIA Hx Anesthesia: Yes Hx Anesthesia Reactions: No Hx Malignant Hyperthermia: No Meds Allergies/Adverse Reactions: Allergies Allergy/AdvReac Type Severity Reaction Status Date / Time amitriptyline Allergy RASH Verified 07/25/18 14:26 Iodinated Contrast- Oral and Allergy RASH Verified 07/25/18 14:26 IV Dye Penicillins Allergy RASH Verified 07/25/18 14:26 shellfish derived Allergy RASH Verified 07/25/18 14:26 Physical Exam - Constitutional Appears: Non-toxic, Older Than Stated Age, Confused, Chronically Ill - Head Exam Head Exam: ATRAUMATIC, NORMAL INSPECTION, NORMOCEPHALIC - Eye Exam Eye Exam: EOMI, Normal appearance, PERRL Pupil Exam: NORMAL ACCOMODATION, PERRL - ENT Exam ENT Exam: Mucous Membranes Dry, Normal External Ear Exam - Neck Exam Neck exam: Positive for: Normal Inspection - Respiratory Exam Respiratory Exam: Rales, NORMAL BREATHING PATTERN - Cardiovascular Exam Cardiovascular Exam: REGULAR RHYTHM. absent: JVD - GI/Abdominal Exam GI & Abdominal Exam: Normal Bowel Sounds, Soft. absent: Tenderness - Extremities Exam Extremities exam: Positive for: full ROM. Negative for: calf tenderness, normal capillary refill Additional comments: Clinically dry - Back Exam Back exam: NORMAL INSPECTION - Neurological Exam Neurological exam: Altered, CN II-XII Intact - Skin Skin Exam: Dry, Intact, Normal Color, Warm Results - Vital Signs Recent Vital Signs: Last Vital Signs Temp 97.7 F 07/25/18 09:45 Pulse 78 07/25/18 09:45 Resp 16 07/25/18 09:45 BP 134/58 L 07/25/18 09:45 Pulse Ox 99 07/25/18 09:45 - Labs Result Diagrams: 07/25/18 09:40 07/25/18 09:40 Labs: Laboratory Results - last 24 hr 07/25/18 07/25/18 07/25/18 09:40 09:40 09:40 WBC 5.5 D RBC 3.21 L Hgb 9.7 L Hct 31.6 L MCV 98.4 D MCH 30.2 MCHC 30.7 L RDW 20.7 H Plt Count 95 L MPV 12.1 H Neut % (Auto) 58.2 Lymph % (Auto) 23.1 [place] % (Auto) 16.5 H Eos % (Auto) 1.5 Baso % (Auto) 0.7 Lymph # (Auto) 1.3 [place] # (Auto) 0.9 H Eos # (Auto) 0.1 Baso # (Auto) 0.04 Absolute Neuts (auto) 3.20 PT 14.6 H INR 1.29 APTT 28.2 pCO2 pO2 202 H HCO3 ABG pH ABG Total CO2 ABG O2 Saturation ABG O2 Content ABG Base Excess ABG Hemoglobin ABG Carboxyhemoglobin POC ABG HHb (Measured) ABG Methemoglobin ABG O2 Capacity VBG pH 7.75 H* VBG pCO2 19.0 L* VBG HCO3 26.3 VBG Total CO2 26.9 VBG O2 Sat (Calc) 99.8 H VBG Base Excess 8.9 H VBG Potassium 5.0 Hgb O2 Saturation Sodium 142.0 Chloride 107.0 Glucose 113 H Lactate 2.2 H FiO2 21.0 Crit Value Called To Sheila colunga Crit Value Called By Vicky noland Blood Gas Notified Time 956 Potassium Carbon Dioxide Anion Gap BUN Creatinine Est GFR ( Amer) Est GFR (Non-Af Amer) Random Glucose Calcium Phosphorus Magnesium Total Bilirubin AST ALT Alkaline Phosphatase Troponin I NT-Pro-B Natriuret Pep Total Protein Albumin Globulin Albumin/Globulin Ratio Free T4 TSH 3rd Generation Venous Blood Potassium 5.0 07/25/18 07/25/18 07/25/18 09:40 09:40 11:18 WBC RBC Hgb Hct MCV MCH MCHC RDW Plt Count MPV Neut % (Auto) Lymph % (Auto) [place] % (Auto) Eos % (Auto) Baso % (Auto) Lymph # (Auto) [place] # (Auto) Eos # (Auto) Baso # (Auto) Absolute Neuts (auto) PT INR APTT pCO2 34 L pO2 131.0 H HCO3 27.8 ABG pH 7.52 H ABG Total CO2 28.8 H ABG O2 Saturation 99.6 H ABG O2 Content 12.9 L ABG Base Excess 4.8 H ABG Hemoglobin 9.3 L ABG Carboxyhemoglobin 2.4 H POC ABG HHb (Measured) 0.4 ABG Methemoglobin 0.9 ABG O2 Capacity 13.0 L VBG pH VBG pCO2 VBG HCO3 VBG Total CO2 VBG O2 Sat (Calc) VBG Base Excess VBG Potassium Hgb O2 Saturation 96.3 Sodium 142 Chloride 101 Glucose Lactate FiO2 28.0 Crit Value Called To Prospert Value Called By Blood Gas Notified Time Potassium 4.7 Carbon Dioxide 29 Anion Gap 17 BUN 34 H Creatinine 6.4 H Est GFR ( Amer) 8 Est GFR (Non-Af Amer) 7 Random Glucose 112 H Calcium 9.1 Phosphorus 3.1 Magnesium 2.3 H Total Bilirubin 1.4 H AST 62 H D ALT 27 Alkaline Phosphatase 135 H D Troponin I 0.06 D NT-Pro-B Natriuret Pep 79162 H Total Protein 7.4 Albumin 3.8 Globulin 3.7 Albumin/Globulin Ratio 1.0 L Free T4 1.85 TSH 3rd Generation 3.64 Venous Blood Potassium Assessment & Plan - Assessment and Plan (Free Text) Assessment: Patient is a 67 F with a past medical history of CAD s/p CABG and 5 stents, ESRD on HD (Tuesday, , Tuesday), hypertension, hypothyroidism, diabetes mellitus presenting with altered mental status. Unable to obtain history of when her last dialysis session was. Electrolytes are normal, but patient has a severe respiratory alkalosis with lactic acid. Chest XR reveals pulmonary vascular congestion. Recent ECHO from May 2018 shows severe TR but normal EF. RVSP was 19, but read as underestimation. Plan AMS, possibly 2/2 infection VS respiratory alkalosis VS lactic acidosis VS hepatic encephalopathy Etiology unclear at this point, as Head CT negative and no apparent electrolyte abnormalities aside from hypermagnesemia. Random glucose was normal. BUN was not severely elevated. However, Ammonia was elevated @ 125 - Aspiration, Seizure, Fall precautions; Neurochecks; HOB 45 degrees - CT Head - Procal, Trimble Cx, ABG and VBG - Troponins; AM labs - Merrem, Vanc empiric doses - Lactulose UT - Emergent dialysis - NPO diet - GI Consultation: Dr. Terry - ID Consultation: Dr. Whitt - Nephro Consultation: Dr. Malone - Neuro consulation: Dr. Dorman - Cardiology consultation: Dr. Berman - ICU Consultation: Dr. Alford ESRD - Nephrology consulted - Replete electrolytes as needed - Continue with renagel, cinacalcet Anemia of CKD Hgb below goal in CKD at 9.7 (goal of 10-11) - Dose aranesp per nephro Coronary Artery Disease - Cardiology consulted; continue home meds Hypothyroidism - Continue home meds Hyperlipidemia - Continue home meds DM -ISS-low with fingerstick ACHS <Jimy Simeon U - Last Filed: 07/31/18 10:38> Results - Vital Signs Recent Vital Signs: Last Vital Signs Temp 97.2 F L 07/30/18 18:00 Pulse 77 07/31/18 09:02 Resp 20 07/30/18 18:00 BP 104/55 L 07/31/18 09:02 Pulse Ox 95 07/30/18 18:00 - Labs Result Diagrams: 07/30/18 11:20 07/30/18 11:20 Labs: Laboratory Results - last 24 hr 07/30/18 07/30/18 07/30/18 11:20 11:20 11:20 WBC 4.4 L RBC 3.19 L Hgb 9.7 L Hct 32.2 L MCV 100.9 MCH 30.4 MCHC 30.1 L RDW 20.0 H Plt Count 93 L Manual Plt Count 100 L MPV 10.9 Neut % (Auto) 59.1 Lymph % (Auto) 18.3 L [place] % (Auto) 20.3 H Eos % (Auto) 1.8 Baso % (Auto) 0.5 Lymph # (Auto) 0.8 L [place] # (Auto) 0.9 H Eos # (Auto) 0.1 Baso # (Auto) 0.02 Absolute Neuts (auto) 2.62 Neutrophils % (Manual) 71 H Lymphocytes % (Manual) 18 L Atypical Lymphs % 3 H Monocytes % (Manual) 7 H Eosinophils % (Manual) 1 Toxic Granulation Slight Platelet Evaluation Low Polychromasia Slight Hypochromasia 2+ Poikilocytosis (manual Slight Anisocytosis (manual) 1+ Macrocytosis (manual) 1+ Target Cells Slight Tear Drop Cells Slight Ovalocytes Slight Sodium 141 Potassium 3.6 Chloride 103 Carbon Dioxide 26 Anion Gap 15 BUN 19 Creatinine 4.8 H Est GFR ( Amer) 11 Est GFR (Non-Af Amer) 9 POC Glucose (mg/dL) Random Glucose 109 Calcium 8.1 L Phosphorus 2.5 Magnesium 2.4 H Total Bilirubin 1.0 Direct Bilirubin 0.9 H AST 63 H ALT 26 Alkaline Phosphatase 129 H Ammonia 17 D Total Protein 7.4 Albumin 3.6 Globulin 3.8 Albumin/Globulin Ratio 0.9 L 03/17/19 03/17/19 03/17/19 11:41 16:08 21:14 WBC RBC Hgb Hct MCV MCH MCHC RDW Plt Count Manual Plt Count MPV Neut % (Auto) Lymph % (Auto) [place] % (Auto) Eos % (Auto) Baso % (Auto) Lymph # (Auto) [place] # (Auto) Eos # (Auto) Baso # (Auto) Absolute Neuts (auto) Neutrophils % (Manual) Lymphocytes % (Manual) Atypical Lymphs % Monocytes % (Manual) Eosinophils % (Manual) Toxic Granulation Platelet Evaluation Polychromasia Hypochromasia Poikilocytosis (manual Anisocytosis (manual) Macrocytosis (manual) Target Cells Tear Drop Cells Ovalocytes Sodium Potassium Chloride Carbon Dioxide Anion Gap BUN Creatinine Est GFR ( Amer) Est GFR (Non-Af Amer) POC Glucose (mg/dL) 108 166 H 205 H Random Glucose Calcium Phosphorus Magnesium Total Bilirubin Direct Bilirubin AST ALT Alkaline Phosphatase Ammonia Total Protein Albumin Globulin Albumin/Globulin Ratio 07/31/18 07:18 WBC RBC Hgb Hct MCV MCH MCHC RDW Plt Count Manual Plt Count MPV Neut % (Auto) Lymph % (Auto) [place] % (Auto) Eos % (Auto) Baso % (Auto) Lymph # (Auto) [place] # (Auto) Eos # (Auto) Baso # (Auto) Absolute Neuts (auto) Neutrophils % (Manual) Lymphocytes % (Manual) Atypical Lymphs % Monocytes % (Manual) Eosinophils % (Manual) Toxic Granulation Platelet Evaluation Polychromasia Hypochromasia Poikilocytosis (manual Anisocytosis (manual) Macrocytosis (manual) Target Cells Tear Drop Cells Ovalocytes Sodium Potassium Chloride Carbon Dioxide Anion Gap BUN Creatinine Est GFR ( Amer) Est GFR (Non-Af Amer) POC Glucose (mg/dL) 161 H Random Glucose Calcium Phosphorus Magnesium Total Bilirubin Direct Bilirubin AST ALT Alkaline Phosphatase Ammonia Total Protein Albumin Globulin Albumin/Globulin Ratio Attending/Attestation - Attestation I have personally seen and examined this patient.: Yes I have fully participated in the care of the patient.: Yes I have reviewed all pertinent clinical information: Yes Notes (Text): Please see/read my dictated notes.
[2018-07-25 11:52] LABS: TROPONIN I 0.06 ng/mL
[2018-07-25] MEDS ORDERED: Lactulose 10 gm/15 ml (Rectal Use) PR ONE ×2 (12:05→13:01)
[2018-07-25] MEDS: Multivitamin Vitamin B Complex (Nephro-Vite) Tab PO SCH (12:22)
[2018-07-25] MEDS: Insulin Lispro (humaLOG) MEDIUM Coverage SC SCH (12:22)
[2018-07-25] MEDS: Insulin Reg-LOW-Coverage SC SCH (12:23)
--- NOTE | 2018-07-25 12:42 | CP.PCM.CON ---
History of Present Illness - History of Present Illness History of Present Illness: Nephrology Consultation Note Assessment: stable AMS ? related to pain meds/sedative and or hepatic encephalopathy as ammonia elevated pulmonary congestion Diabetic chronic Kidney Disease (E11.22) Hypertensive Chronic Kidney Disease (I12.0) End stage renal disease (N18.6) dependence on hemodialysis (Z99.2) (TTS) via AVF Anemia (D64.9), Hyperphosphatemia (E83.39), Secondary Hyperparathyroidism (E21.1), HTN (I12.0) CAD s/p CABG obesity thrombocytopenia Lytic lesions ? underlying malignancy RV dysfunction, moderate to severe MR Plan: Will plan for next dialysis today as per TTS schedule. Continue with Nephrovite 1 tab/day. PRBC as needed for anemia. weekly ADAM with HD continue with phos binders once orally accepting maintain hemodynamic stable. resume midodrine 10 mg TID. no on acei/arb as bp usually low Glycemic control, Dialysis consistent diet Further work up/management as per primary team Dose meds/antibiotics (if needed) for ESRD status. Avoid fleets enema/magnesium based laxatives. Thanks for allowing me to participate in care of your patient. Will follow patient with you. Please call if any Qs. had d/w team Dr Amrit Malone Office: [phone] CC: AMS reason for consult: ESRD HPI:Pt is a 67 F with hx of ESRD on hemodialysis (TTS) via AVF , last dialysis Sat, chronic anemia, hyperphosphatemia, secondary hyperparathyroidism, Diabetes Mellitus, hypertension CAD s/p CABG, chronic back pain presented with complaints of AMS.Renal consult requested for ESRD management. pt had similar and recent hospitalization [place] [facility] [place] which was attributed to pain meds ROS: unable to obtain from pt Physical Examination: General Appearance: in no acute respiratory distress, comfortable Vitals reviewed and noted as below Head; Atraumatic, normocephalic ENT: no ulcers no thrush. Tongue is midline. Oropharynx: no rash or ulcers. Neck; supple no lymphadenopathy, no thyromegaly or bruit Lungs: Normal respiratory rate/effort. Breath sounds bilateral equal and clear Heart: Normal rate. s1s2 normal. No rub or gallop. Extremities: no Rt edema. No varicose veins. has chronic left leg edema Neurological: Patient is AMS status. mostly non communicative Skin: Warm and dry. Normal turgor. No rash. Palpitation: Normal elasticity for age Abdomen: Abdomen is soft. Bowel sounds +. There is no abdominal tenderness, no guarding/rigidity or organomegaly Psych: unable MSK: no joint tenderness or swelling. Digits and nails normal, no deformity : kidney or bladder not palpable Access: AVF Labs/imaging reviewed. Past medical history, past surgical history, family history, social history, allergy reviewed and noted as below Family Hx: no hx of CKD. Non contributory Past Patient History - Infectious Disease Hx of Infectious Diseases: None - Past Social History Smoking Status: Former Smoker - CARDIAC Hx Cardiac Disorders: Yes (Pacemaker x 2, s/p CABG, triple pypass, 5 stents.) Hx Hypertension: Yes - PULMONARY Hx Respiratory Disorders: No - NEUROLOGICAL Hx Neurological Disorder: No - HEENT Hx HEENT Problems: No - RENAL Hx Renal Failure: Yes (ESRD on HD: T, Th, Sa.) - ENDOCRINE/METABOLIC Hx Hypothyroidism: Yes - HEMATOLOGICAL/ONCOLOGICAL Hx Blood Disorders: No - INTEGUMENTARY Hx Dermatological Problems: No - MUSCULOSKELETAL/RHEUMATOLOGICAL Hx Musculoskeletal Disorders: Yes Hx Back Pain: Yes Hx Falls: Yes Hx Unsteady Gait: Yes (walker) - GASTROINTESTINAL Hx Gastrointestinal Disorders: No - GENITOURINARY/GYNECOLOGICAL Hx Genitourinary Disorders: No - PSYCHIATRIC Hx Psychophysiologic Disorder: No Hx Substance Use: No - SURGICAL HISTORY Hx Coronary Stent: Yes (5) Other/Comment: right av shunt placement. tonsillectomy - ANESTHESIA Hx Anesthesia: Yes Hx Anesthesia Reactions: No Hx Malignant Hyperthermia: No Meds Allergies/Adverse Reactions: Allergies Allergy/AdvReac Type Severity Reaction Status Date / Time amitriptyline Allergy RASH Verified 07/25/18 09:11 Iodinated Contrast- Oral and Allergy RASH Verified 06/20/18 09:35 IV Dye Penicillins Allergy RASH Verified 06/20/18 09:35 shellfish derived Allergy RASH Verified 07/25/18 09:11 - Medications Medications: Current Medications Acetaminophen (Tylenol 325mg Tab) 650 mg PO Q6 PRN PRN Reason: TEMP>=99.5F Acetaminophen (Tylenol 650 Mg Supp) 650 mg RC Q6H PRN PRN Reason: TEMP>=99.5F Aspirin (Aspirin Chewable) 81 mg PO DAILY RAISSA Last Admin: 07/25/18 12:22 Dose: Not Given Atorvastatin Calcium (Lipitor) 80 mg PO HS [facility] Cinacalcet (Sensipar) 30 mg PO DIN [facility] Dextrose (Dextrose 50% Inj) 0 ml IV STAT PRN; Protocol PRN Reason: Hypoglycemia Protocol Docusate Sodium (Colace) 100 mg PO TID [facility] Dextrose (Dextrose 5% In Water 1000 Ml) 1,000 mls @ 0 mls/hr IV .Q0M PRN; Protocol PRN Reason: Hypoglycemia Protocol Meropenem/Sodium Chloride (Merrem Iv 500 Mg/Ns 50 Ml) 500 mg in 50 mls @ 100 mls/hr IVPB Q24H RAISSA; Protocol Vancomycin HCl (Vancomycin 1gm) 1 gm in 250 mls @ 167 mls/hr IVPB STAT STA; Protocol Stop: 07/25/18 12:59 Insulin Human Lispro (Humalog Med) 0 units SC AC [facility]; Protocol Last Admin: 07/25/18 12:22 Dose: Not Given Insulin Human NPH (Humulin N) 10 units SC ACB [facility] Insulin Human NPH (Humulin N) 10 units SC DAILY@1745 [facility] Insulin Human Regular (Humulin R Low) 0 units SC [facility]; Protocol Last Admin: 07/25/18 12:23 Dose: Not Given Levalbuterol HCl (Xopenex) 0.63 mg IH [id number] [facility] Levothyroxine Sodium (Synthroid) 50 mcg PO 0600 [facility] Metoprolol Tartrate (Lopressor) 25 mg PO BRKDIN [facility] Midodrine (Proamatine) 10 mg PO TID [facility] Ondansetron HCl (Zofran Inj) 4 mg IVP Q4H PRN PRN Reason: Nausea/Vomiting Pantoprazole Sodium (Protonix Inj) 40 mg IVP Q12 [facility] Last Admin: 07/25/18 12:22 Dose: 40 mg Sennosides (Senokot Tab) 17.2 mg PO HS [facility] Sevelamer HCl (Renagel) 800 mg PO TID [facility] Vitamin B Complex/Vit C/Folic Acid (Nephro-Jose Miguel) 1 tab PO DAILY [facility] Last Admin: 07/25/18 12:22 Dose: Not Given Results - Vital Signs Recent Vital Signs: Last Vital Signs Temp 97.7 F 07/25/18 09:45 Pulse 77 07/25/18 12:25 Resp 17 07/25/18 12:25 BP 120/72 07/25/18 12:25 Pulse Ox 100 07/25/18 12:25 - Labs Result Diagrams: 07/25/18 09:40 07/25/18 09:40 Labs: Laboratory Results - last 24 hr 07/25/18 07/25/18 07/25/18 09:40 09:40 09:40 WBC 5.5 D RBC 3.21 L Hgb 9.7 L Hct 31.6 L MCV 98.4 D MCH 30.2 MCHC 30.7 L RDW 20.7 H Plt Count 95 L MPV 12.1 H Neut % (Auto) 58.2 Lymph % (Auto) 23.1 [place] % (Auto) 16.5 H Eos % (Auto) 1.5 Baso % (Auto) 0.7 Lymph # (Auto) 1.3 [place] # (Auto) 0.9 H Eos # (Auto) 0.1 Baso # (Auto) 0.04 Absolute Neuts (auto) 3.20 PT 14.6 H INR 1.29 APTT 28.2 pCO2 pO2 202 H HCO3 ABG pH ABG Total CO2 ABG O2 Saturation ABG O2 Content ABG Base Excess ABG Hemoglobin ABG Carboxyhemoglobin POC ABG HHb (Measured) ABG Methemoglobin ABG O2 Capacity VBG pH 7.75 H* VBG pCO2 19.0 L* VBG HCO3 26.3 VBG Total CO2 26.9 VBG O2 Sat (Calc) 99.8 H VBG Base Excess 8.9 H VBG Potassium 5.0 Hgb O2 Saturation Sodium 142.0 Chloride 107.0 Glucose 113 H Lactate 2.2 H FiO2 21.0 Crit Value Called To Sheila colunga Crit Value Called By Vicky noland Blood Gas Notified Time 956 Potassium Carbon Dioxide Anion Gap BUN Creatinine Est GFR ( Amer) Est GFR (Non-Af Amer) Random Glucose Calcium Phosphorus Magnesium Total Bilirubin AST ALT Alkaline Phosphatase Ammonia Lactate Dehydrogenase Total Creatine Kinase Troponin I NT-Pro-B Natriuret Pep Total Protein Albumin Globulin Albumin/Globulin Ratio Free T4 TSH 3rd Generation Venous Blood Potassium 5.0 07/25/18 07/25/18 07/25/18 09:40 09:40 11:18 WBC RBC Hgb Hct MCV MCH MCHC RDW Plt Count MPV Neut % (Auto) Lymph % (Auto) [place] % (Auto) Eos % (Auto) Baso % (Auto) Lymph # (Auto) [place] # (Auto) Eos # (Auto) Baso # (Auto) Absolute Neuts (auto) PT INR APTT pCO2 34 L pO2 131.0 H HCO3 27.8 ABG pH 7.52 H ABG Total CO2 28.8 H ABG O2 Saturation 99.6 H ABG O2 Content 12.9 L ABG Base Excess 4.8 H ABG Hemoglobin 9.3 L ABG Carboxyhemoglobin 2.4 H POC ABG HHb (Measured) 0.4 ABG Methemoglobin 0.9 ABG O2 Capacity 13.0 L VBG pH VBG pCO2 VBG HCO3 VBG Total CO2 VBG O2 Sat (Calc) VBG Base Excess VBG Potassium Hgb O2 Saturation 96.3 Sodium 142 Chloride 101 Glucose Lactate FiO2 28.0 Crit Value Called To Crit Value Called By Blood Gas Notified Time Potassium 4.7 Carbon Dioxide 29 Anion Gap 17 BUN 34 H Creatinine 6.4 H Est GFR ( Amer) 8 Est GFR (Non-Af Amer) 7 Random Glucose 112 H Calcium 9.1 Phosphorus 3.1 Magnesium 2.3 H Total Bilirubin 1.4 H AST 62 H D ALT 27 Alkaline Phosphatase 135 H D Ammonia Lactate Dehydrogenase Total Creatine Kinase Troponin I 0.06 D NT-Pro-B Natriuret Pep 52963 H Total Protein 7.4 Albumin 3.8 Globulin 3.7 Albumin/Globulin Ratio 1.0 L Free T4 1.85 TSH 3rd Generation 3.64 Venous Blood Potassium 07/25/18 07/25/18 11:20 11:20 WBC RBC Hgb Hct MCV MCH MCHC RDW Plt Count MPV Neut % (Auto) Lymph % (Auto) [place] % (Auto) Eos % (Auto) Baso % (Auto) Lymph # (Auto) [place] # (Auto) Eos # (Auto) Baso # (Auto) Absolute Neuts (auto) PT INR APTT pCO2 pO2 HCO3 ABG pH ABG Total CO2 ABG O2 Saturation ABG O2 Content ABG Base Excess ABG Hemoglobin ABG Carboxyhemoglobin POC ABG HHb (Measured) ABG Methemoglobin ABG O2 Capacity VBG pH VBG pCO2 VBG HCO3 VBG Total CO2 VBG O2 Sat (Calc) VBG Base Excess VBG Potassium Hgb O2 Saturation Sodium Chloride Glucose Lactate FiO2 Crit Value Called To Crit Value Called By Blood Gas Notified Time Potassium Carbon Dioxide Anion Gap BUN Creatinine Est GFR ( Amer) Est GFR (Non-Af Amer) Random Glucose Calcium Phosphorus Magnesium Total Bilirubin AST ALT Alkaline Phosphatase Ammonia 125 H Lactate Dehydrogenase 960 H Total Creatine Kinase 148 Troponin I 0.06 NT-Pro-B Natriuret Pep Total Protein Albumin Globulin Albumin/Globulin Ratio Free T4 TSH 3rd Generation Venous Blood Potassium
[2018-07-25] MEDS ORDERED: Darbepoetin Alfa 60 mcg/ml Inj IVP SCH (12:45)
--- NOTE | 2018-07-25 13:38 | CP.PCM.CON ---
History of Present Illness - History of Present Illness History of Present Illness: MICU CONSULT NOTE HPI Patient is 67yo female with PMHx CAD s/p CABG and 5 stents, ESRD on HD (Tuesday, , Tuesday), hypertension, hypothyroidism, diabetes mellitus presenting with altered mental status. History limited to the chart and ER staff, as patient is somnolent, and not answering any questions. As per ER staff patient was given Benadryl, and became altered. Given Narcan but no response. Currently afebrile, HD stable, comfortable, 100% on 2LNC, somnolent, responds to painful stimuli Ammonia 125 PMHx CAD s/p CABG and 5 stents, ESRD on HD (Tuesday, , Tuesday), hypertension, hypothyroidism, diabetes mellitus PSHx CABG Meds as per EMR FHx NC Social cannot obtain ROS cannot obtain Allergies PCN, Shellfish, TCA Review of Systems - Review of Systems Review of Systems: altered, cannot obtain Past Patient History - Infectious Disease Hx of Infectious Diseases: None - Past Social History Smoking Status: Former Smoker - CARDIAC Hx Cardiac Disorders: Yes (Pacemaker x 2, s/p CABG, triple pypass, 5 stents.) Hx Hypertension: Yes - PULMONARY Hx Respiratory Disorders: No - NEUROLOGICAL Hx Neurological Disorder: No - HEENT Hx HEENT Problems: No - RENAL Hx Renal Failure: Yes (ESRD on HD: , , .) - ENDOCRINE/METABOLIC Hx Hypothyroidism: Yes - HEMATOLOGICAL/ONCOLOGICAL Hx Blood Disorders: No - INTEGUMENTARY Hx Dermatological Problems: No - MUSCULOSKELETAL/RHEUMATOLOGICAL Hx Musculoskeletal Disorders: Yes Hx Back Pain: Yes Hx Falls: Yes Hx Unsteady Gait: Yes (walker) - GASTROINTESTINAL Hx Gastrointestinal Disorders: No - GENITOURINARY/GYNECOLOGICAL Hx Genitourinary Disorders: No - PSYCHIATRIC Hx Psychophysiologic Disorder: No Hx Substance Use: No - SURGICAL HISTORY Hx Coronary Stent: Yes (5) Other/Comment: right av shunt placement. tonsillectomy - ANESTHESIA Hx Anesthesia: Yes Hx Anesthesia Reactions: No Hx Malignant Hyperthermia: No Meds Allergies/Adverse Reactions: Allergies Allergy/AdvReac Type Severity Reaction Status Date / Time amitriptyline Allergy RASH Verified 07/25/18 09:11 Iodinated Contrast- Oral and Allergy RASH Verified 06/20/18 09:35 IV Dye Penicillins Allergy RASH Verified 06/20/18 09:35 shellfish derived Allergy RASH Verified 07/25/18 09:11 - Medications Medications: Current Medications Acetaminophen (Tylenol 325mg Tab) 650 mg PO Q6 PRN PRN Reason: TEMP>=99.5F Acetaminophen (Tylenol 650 Mg Supp) 650 mg RC Q6H PRN PRN Reason: TEMP>=99.5F Aspirin (Aspirin Chewable) 81 mg PO DAILY [facility] Last Admin: 07/25/18 12:22 Dose: Not Given Atorvastatin Calcium (Lipitor) 80 mg PO HS [facility] Cinacalcet (Sensipar) 30 mg PO DIN [facility] Darbepoetin Glenn (Aranesp) 60 mcg IVP QWK [facility] Dextrose (Dextrose 50% Inj) 0 ml IV STAT PRN; Protocol PRN Reason: Hypoglycemia Protocol Docusate Sodium (Colace) 100 mg PO TID [facility] Dextrose (Dextrose 5% In Water 1000 Ml) 1,000 mls @ 0 mls/hr IV .Q0M PRN; Protocol PRN Reason: Hypoglycemia Protocol Meropenem/Sodium Chloride (Merrem Iv 500 Mg/Ns 50 Ml) 500 mg in 50 mls @ 100 mls/hr IVPB Q24H [facility]; Protocol Insulin Human Lispro (Humalog Med) 0 units SC AC [facility]; Protocol Last Admin: 07/25/18 12:22 Dose: Not Given Insulin Human NPH (Humulin N) 10 units SC ACB [facility] Insulin Human NPH (Humulin N) 10 units SC DAILY@1745 [facility] Insulin Human Regular (Humulin R Low) 0 units SC ACHS [facility]; Protocol Last Admin: 07/25/18 12:23 Dose: Not Given Levalbuterol HCl (Xopenex) 0.63 mg IH [id number] [facility] Levothyroxine Sodium (Synthroid) 50 mcg PO 0600 [facility] Metoprolol Tartrate (Lopressor) 25 mg PO BRKDIN [facility] Midodrine (Proamatine) 10 mg PO TID [facility] Ondansetron HCl (Zofran Inj) 4 mg IVP Q4H PRN PRN Reason: Nausea/Vomiting Pantoprazole Sodium (Protonix Inj) 40 mg IVP Q12 [facility] Last Admin: 07/25/18 12:22 Dose: 40 mg Rifaximin (Xifaxan) 550 mg PO BID [facility]; Protocol Sennosides (Senokot Tab) 17.2 mg PO HS [facility] Sevelamer HCl (Renagel) 800 mg PO TID [facility] Vitamin B Complex/Vit C/Folic Acid (Nephro-Jose Miguel) 1 tab PO DAILY [facility] Last Admin: 07/25/18 12:22 Dose: Not Given Physical Exam - Constitutional Appears: Non-toxic, No Acute Distress, Older Than Stated Age, Confused - Head Exam Head Exam: NORMAL INSPECTION - Eye Exam Eye Exam: Normal appearance - ENT Exam ENT Exam: Mucous Membranes Dry - Respiratory Exam Respiratory Exam: Clear to Auscultation Bilateral, NORMAL BREATHING PATTERN - Cardiovascular Exam Cardiovascular Exam: REGULAR RHYTHM, +S1, +S2 - GI/Abdominal Exam GI & Abdominal Exam: Normal Bowel Sounds, Soft - Extremities Exam Extremities exam: Positive for: normal inspection - Back Exam Back exam: NORMAL INSPECTION - Neurological Exam Neurological exam: Altered - Skin Skin Exam: Normal Color, Warm Results - Vital Signs Recent Vital Signs: Last Vital Signs Temp 98.1 F 07/25/18 10:44 Pulse 77 07/25/18 12:25 Resp 17 07/25/18 12:25 BP 120/72 07/25/18 12:25 Pulse Ox 100 07/25/18 12:25 - Labs Result Diagrams: 07/25/18 09:40 07/25/18 09:40 Labs: Laboratory Results - last 24 hr 07/25/18 07/25/18 07/25/18 09:40 09:40 09:40 WBC 5.5 D RBC 3.21 L Hgb 9.7 L Hct 31.6 L MCV 98.4 D MCH 30.2 MCHC 30.7 L RDW 20.7 H Plt Count 95 L MPV 12.1 H Neut % (Auto) 58.2 Lymph % (Auto) 23.1 Ogle % (Auto) 16.5 H Eos % (Auto) 1.5 Baso % (Auto) 0.7 Lymph # (Auto) 1.3 Ogle # (Auto) 0.9 H Eos # (Auto) 0.1 Baso # (Auto) 0.04 Absolute Neuts (auto) 3.20 PT 14.6 H INR 1.29 APTT 28.2 pCO2 pO2 202 H HCO3 ABG pH ABG Total CO2 ABG O2 Saturation ABG O2 Content ABG Base Excess ABG Hemoglobin ABG Carboxyhemoglobin POC ABG HHb (Measured) ABG Methemoglobin ABG O2 Capacity VBG pH 7.75 H* VBG pCO2 19.0 L* VBG HCO3 26.3 VBG Total CO2 26.9 VBG O2 Sat (Calc) 99.8 H VBG Base Excess 8.9 H VBG Potassium 5.0 Hgb O2 Saturation Sodium 142.0 Chloride 107.0 Glucose 113 H Lactate 2.2 H FiO2 21.0 Crit Value Called To Sheila colunga Crit Value Called By Vicky noland Blood Gas Notified Time 956 Potassium Carbon Dioxide Anion Gap BUN Creatinine Est GFR ( Amer) Est GFR (Non-Af Amer) Random Glucose Calcium Phosphorus Magnesium Total Bilirubin AST ALT Alkaline Phosphatase Ammonia Lactate Dehydrogenase Total Creatine Kinase Troponin I NT-Pro-B Natriuret Pep Total Protein Albumin Globulin Albumin/Globulin Ratio Free T4 TSH 3rd Generation Venous Blood Potassium 5.0 07/25/18 07/25/18 07/25/18 09:40 09:40 11:18 WBC RBC Hgb Hct MCV MCH MCHC RDW Plt Count MPV Neut % (Auto) Lymph % (Auto) Ogle % (Auto) Eos % (Auto) Baso % (Auto) Lymph # (Auto) Ogle # (Auto) Eos # (Auto) Baso # (Auto) Absolute Neuts (auto) PT INR APTT pCO2 34 L pO2 131.0 H HCO3 27.8 ABG pH 7.52 H ABG Total CO2 28.8 H ABG O2 Saturation 99.6 H ABG O2 Content 12.9 L ABG Base Excess 4.8 H ABG Hemoglobin 9.3 L ABG Carboxyhemoglobin 2.4 H POC ABG HHb (Measured) 0.4 ABG Methemoglobin 0.9 ABG O2 Capacity 13.0 L VBG pH VBG pCO2 VBG HCO3 VBG Total CO2 VBG O2 Sat (Calc) VBG Base Excess VBG Potassium Hgb O2 Saturation 96.3 Sodium 142 Chloride 101 Glucose Lactate FiO2 28.0 Crit Value Called To Crit Value Called By Blood Gas Notified Time Potassium 4.7 Carbon Dioxide 29 Anion Gap 17 BUN 34 H Creatinine 6.4 H Est GFR ( Amer) 8 Est GFR (Non-Af Amer) 7 Random Glucose 112 H Calcium 9.1 Phosphorus 3.1 Magnesium 2.3 H Total Bilirubin 1.4 H AST 62 H D ALT 27 Alkaline Phosphatase 135 H D Ammonia Lactate Dehydrogenase Total Creatine Kinase Troponin I 0.06 D NT-Pro-B Natriuret Pep 53421 H Total Protein 7.4 Albumin 3.8 Globulin 3.7 Albumin/Globulin Ratio 1.0 L Free T4 1.85 TSH 3rd Generation 3.64 Venous Blood Potassium 07/25/18 07/25/18 11:20 11:20 WBC RBC Hgb Hct MCV MCH MCHC RDW Plt Count MPV Neut % (Auto) Lymph % (Auto) Ogle % (Auto) Eos % (Auto) Baso % (Auto) Lymph # (Auto) Ogle # (Auto) Eos # (Auto) Baso # (Auto) Absolute Neuts (auto) PT INR APTT pCO2 pO2 HCO3 ABG pH ABG Total CO2 ABG O2 Saturation ABG O2 Content ABG Base Excess ABG Hemoglobin ABG Carboxyhemoglobin POC ABG HHb (Measured) ABG Methemoglobin ABG O2 Capacity VBG pH VBG pCO2 VBG HCO3 VBG Total CO2 VBG O2 Sat (Calc) VBG Base Excess VBG Potassium Hgb O2 Saturation Sodium Chloride Glucose Lactate FiO2 Crit Value Called To Crit Value Called By Blood Gas Notified Time Potassium Carbon Dioxide Anion Gap BUN Creatinine Est GFR ( Amer) Est GFR (Non-Af Amer) Random Glucose Calcium Phosphorus Magnesium Total Bilirubin AST ALT Alkaline Phosphatase Ammonia 125 H Lactate Dehydrogenase 960 H Total Creatine Kinase 148 Troponin I 0.06 NT-Pro-B Natriuret Pep Total Protein Albumin Globulin Albumin/Globulin Ratio Free T4 TSH 3rd Generation Venous Blood Potassium Assessment & Plan - Assessment and Plan (Free Text) Assessment: 67yo female with PMHx CAD s/p CABG and 5 stents, ESRD on HD (Tuesday, , Tuesday), hypertension, hypothyroidism, diabetes mellitus a/w AMS AMS ESRD on HD HTN Hypothyroidism DM Hepatic Encephalopathy - currently afebrile, HD stable, comfortable, altered, somnolent, responds to painful stimuli only - CT head negative - labs, imaging, chart reviewed - Ammonia 125, ABG noted Recommend: - supp o2 as needed, duonebs PRN - panculture, UCx, BCx, Check Procal - Lactulose IN 200g x 1 - Rifaxamin 550mg BID - NPO - BP control - HD as per renal - check TSH, T3, T4 - FS control - repeat ammonia level after Lactulose, and Rifaximin - resume home meds after passes speech swallow eval - GI ppx - DVT ppx - monitor in MICU
[2018-07-25 14:27] LABS: VENOUS BLOOD GAS BASE EXCESS 7.7 mmol/L (0.0-2.0); VENOUS BLOOD GAS PO2 227 mm/Hg (30-55); VENOUS BLOOD PH 7.52 (7.32-7.43)
--- NOTE | 2018-07-25 16:06 | CON ---
DATE OF CONSULTATION: 07/25/2018 GASTROENTEROLOGY CONSULTATION REQUESTING PHYSICIAN: Dr. Simeon. REASON FOR CONSULTATION/HISTORY OF PRESENT ILLNESS: I have been asked to see this 67-year-old female with end-stage renal disease on hemodialysis, coronary artery disease status post coronary artery bypass surgery, and coronary artery stents, who developed lethargy and confusion in the custodial. The patient remains lethargic, but opens her eyes. The patient was just recently discharged from [facility] after an admission for altered mental status. She does have a history of cirrhosis of the liver determined by CT scan on her last hospitalization. Her serum ammonia level on admission was elevated to 125. The patient is unable to give any history due to her altered mental status, history is obtained from the chart and her previous admission. PAST MEDICAL HISTORY: Again is notable for end-stage renal disease on hemodialysis, coronary artery disease with placement of multiple stents, history of breast abscesses, type 2 diabetes mellitus, hypothyroidism, hypertension. PAST SURGICAL HISTORY: Notable for coronary artery bypass surgery. SOCIAL HISTORY: There is no history of cigarette smoking or alcohol use. FAMILY HISTORY: Noncontributory. MEDICATIONS: Medications at home include Aranesp, aspirin, docusate, vitamin B complex, Lipitor, ProAmatine, sevelamer, senna, thiamine, tramadol, metoprolol, pantoprazole, mupirocin/Bactroban cream, and Humalog insulin. PHYSICAL EXAMINATION: GENERAL: Elderly female, lethargic, not following commands, but is able to open her eyes. VITAL SIGNS: Reveal temperature of 98.1, blood pressure 120/72, heart rate of 77. HEENT: Reveal sclerae to be white. Conjunctivae pink. NECK: Supple. CHEST: Reveals distant breath sounds. HEART: Exam reveals a regular rate and rhythm. ABDOMEN: Obese, soft, nontender. EXTREMITIES: Show no edema. LABORATORY DATA: Revealed BUN 34, creatinine 6.4, total bilirubin 1.4, AST 62, ALT 27, alkaline phosphatase of 135. Serum ammonia 125. BNP is 57,600. Coags reveal PT 14.6, INR 1.29. CBC reveals a white blood cell count of 5.5, hemoglobin 9.7, platelet count of 95,000. IMPRESSION: A 67-year-old female with end-stage renal disease on hemodialysis, just recently discharged from the hospital with altered mental status, admitted for the same. She has a history of coronary artery disease with coronary artery bypass surgery in the past as well as multiple coronary artery stent placements. She appears to have cirrhosis of the liver based on a CT scan of the abdomen from a previous admission. Her serum ammonia level was elevated at 125. One must rule out hepatic encephalopathy. RECOMMENDATIONS: 1. We will request a lactulose enema now. 2. We will start the patient on Xifaxan 550 mg p.o. b.i.d. 3. Follow serum ammonia levels. 4. Check hepatitis C antibody. Angelito Terry MD
--- NOTE | 2018-07-25 17:14 | CARD ---
APPROVED REPORT Date of service: 07/25/2018 EKG Measurement Heart [id number] <Conclusion> Atrial fibrillation with premature ventricular or aberrantly conducted complexes Left axis deviation Right bundle branch block T wave abnormality, consider inferolateral ischemia or digitalis effect Abnormal ECG
[2018-07-25] MEDS: Insulin Human NPH 1 UNITS/0.01 ML SC SCH (18:24)
--- NOTE | 2018-07-25 18:30 | CON ---
DATE: 07/25/2018 CHIEF COMPLAINT: Altered mental status. HISTORY OF PRESENT ILLNESS: This is a 67-year-old woman with history of coronary artery disease status post CABG with five stents, end-stage renal disease, on dialysis Tuesday, and Tuesday, hypertension, hypothyroidism, type 2 diabetes mellitus, came in with altered mental status. History is limited to the chart and ER staff as patient did not answer any questions. As per ER staff, he was given Benadryl and the patient became altered, given Narcan but no response. Currently, afebrile. Responds to nauseous stimulus and localizes and moves extremities spontaneously equally. Was found to have an ammonia level of 125, which is extremely elevated and has been started on Xifaxan 550 mg p.o. b.i.d. In addition, on lactulose enemas as per GI. CAT scan of the head showed no acute intracranial abnormality. PAST MEDICAL HISTORY: As above. SOCIAL HISTORY: No illicit drug use, smoking or EtOH abuse. PAST SURGICAL HISTORY: CABG. REVIEW OF SYSTEMS: Cannot be obtained due to patient's altered mental status. FAMILY HISTORY: Noncontributory. SOCIAL HISTORY: Obtained. ALLERGIES: PENICILLIN, SHELLFISH, TCA. LABORATORY DATA: Ammonia level is 125. Sodium 142, potassium 4.7, chloride 101, carbon dioxide 29, BUN of 34, creatinine of 6.4, random glucose 112. PHYSICAL EXAMINATION: VITAL SIGNS: Temperature 98.1, pulse 86, blood pressure is 139/65, respiratory rate 18, oxygen saturation 100% via nasal cannula. GENERAL: The patient appears nontoxic, confused. HEENT: Head is atraumatic, normocephalic. PERRLA. Extraocular muscles intact. NECK: Supple. No JVD. No adenopathy noted. LUNGS: Clear to auscultation. No adventitious sounds. HEART: S1 and S2. Normal rate and rhythm. No murmurs, rubs or gallops. ABDOMEN: Soft,nontender, nondistended. Bowel sounds are present. EXTREMITIES: Trace pedal edema. Peripheral pulses 2+ felt bilaterally. NEUROLOGIC: Confused, oriented to person, but not much to month or year. Recall after 5 minutes is 0/3. Poor attention span. Thought process: Confused, difficult to obtain due to the patient's altered mental status. Cranial nerves II through XII are intact. Motor: Spontaneously moves all extremities equally. Toes are downgoing bilaterally . Sensory: Withdraws to localized noxious stimulus. DTRs are 2+ throughout and 1 at both knees and ankles. Coordination and gait deferred for now. IMPRESSION AND PLAN: This is a 67-year-old woman with history of coronary artery disease status post coronary artery bypass surgery and five stents, end-stage renal disease, on hemodialysis Tuesday, , and Tuesday, hypertension, hypothyroidism, type 2 diabetes mellitus, and altered mental status, which is likely secondary to toxic metabolic encephalopathy/hepatic encephalopathy, given the ammonia level of 125. CAT scan of the head showed no acute intracranial abnormalities. The patient withdraws on localized noxious stimulus. We will recommend: 1. Xifaxan 550 mg p.o. b.i.d. in addition to lactulose enema for elevated ammonia. Repeat ammonia daily. 2. Monitor electrolytes and correct accordingly. 3. Keep blood sugars between 140-180 and avoid hyperglycemic or hypoglycemic events. 4. Thiamine 100 mg daily and continue current present medical management along with BP control. Thank you for this consult. Luis Fernando Dorman MD
[2018-07-25] MEDS: Levalbuterol 0.63 MG/3 ML Inhal Soln UD IH SCH ×2 (19:05→20:00)
[2018-07-25 19:32] VITALS: BMI 29.9
[2018-07-25] MEDS ORDERED: Influenza Vaccine 60 mcg/0.5 mL SYR (4YR UP) IM ONE (19:32)
[2018-07-25] MEDS ORDERED: Pneumococcal 23-Valent Vaccine IM ONE (19:32)
[2018-07-25 20:04] LABS: TROPONIN I 0.07 ng/mL
[2018-07-25 20:33] LABS: HEPATITIS B SURFACE AG Negative (NEGATIVE)
[2018-07-25 20:38] LABS: HEPATITIS B CORE AB NEGATIVE (NEGATIVE)
[2018-07-25] MEDS: Acyclovir 250 MG in Sodium Chloride 0.9% 100 ML IV SCH (21:52)
[2018-07-26] MEDS: Levalbuterol 0.63 MG/3 ML Inhal Soln UD IH SCH ×4 (01:09→20:10)
--- NOTE | 2018-07-26 01:59 | CON ---
DATE: 07/25/2018 LOCATION: The patient is seen earlier today in room 128, bed 6. CHIEF COMPLAINT: Change in mental status since one day duration. HISTORY OF PRESENT ILLNESS: This is a 67-year-old female with chronic renal failure, on hemodialysis; coronary artery disease; hypothyroidism; diabetes mellitus; cirrhosis of the liver; the patient with a pacemaker x2; and coronary artery bypass graft who was admitted with a diagnosis of change in mental status. The patient was seen in the ICU. She was not responsive. Her baseline is not entirely clear. There have been no fevers reported. No chills. No trauma. No headache. Some blurred vision. No abdominal pain, diarrhea, or constipation. PAST MEDICAL HISTORY: Significant for diabetes mellitus; hypothyroidism; renal disease, on hemodialysis; coronary artery disease; peripheral vascular disease; high cholesterol; and hypertension. PAST SURGICAL HISTORY: Significant for pacemaker x2, dialysis catheter, foot surgery, cardiac stents, coronary artery bypass graft, right AV shunt placement, and tonsillectomy. ALLERGIES: THE PATIENT HAS MULTIPLE ALLERGIES INCLUDING PENICILLIN, SHELLFISH, ORAL AND IV DYE, IODINATED CONTRAST, AND AMITRIPTYLINE. MEDICATIONS: Reviewed at home are noted. PHYSICAL EXAMINATION: GENERAL: The patient is seen in bed, in no acute distress, comfortable; however, she is not responsive. VITAL SIGNS: Temperature of 98, blood pressure of 120/70, respiratory rate of 18, and heart rate of 77. HEENT: Unremarkable. NECK: Supple. LUNGS: Decreased breath sounds. HEART: Normal S1 and S2. ABDOMEN: Soft. LABORATORY DATA: Reveals white count of 5.5, hemoglobin of 9, and platelets of 95. Chemistry reveals the patient's BUN of 34, creatinine of 6.4, and alkaline phosphatase is 135. BNP is 57,000. Procalcitonin is 0.23. Microbiology is pending. The patient had a CAT scan of the head, which was negative. Chest x-ray which was negative. Dr. Luis Fernando Dorman's progress note is reviewed. ASSESSMENT AND PLAN: This is a 67-year-old female correction patient with coronary artery disease; end-stage renal disease, on hemodialysis; hypothyroidism; diabetic; hypertensive; high cholesterol; cirrhosis of the liver, now admitted with change in mental status, etiology of which is unclear. Negative CAT scan of the head. Negative chest x-ray. Negative procalcitonin. Thyroid studies are noted. TSH third generation is 3.64. From infectious disease point of view, no clear evidence of any infection. Neurology toxic encephalopathy. We will treat the patient with doxycycline, vancomycin, and meropenem. We will discuss with Neurology regarding MRI imaging and spinal tap. We will check on the blood cultures, urine cultures, and sputum culture. We will also order an IV acyclovir empirically. At this time, we will use acyclovir, intermittent IV vancomycin, and meropenem, adjust it all for renal disease and doxycycline pending workup results and Neurology workup results and pancultures. Etiology of change in mental status is unclear. Bill Whitt MD
[2018-07-26 03:35] LABS: BASO # 0.02 K/mm3 (0.0-2.0); BASO % 0.4 % (0.0-3.0); EOS # 0.1 (0.0-0.7); EOS % 1.5 % (1.5-5.0); HEMOGLOBIN 9.3 g/dL (12.0-16.0); LYMPH # 1.1 (1.2-3.4); LYMPH % 19.9 % (22.0-35.0); MEAN CORPUSCULAR HEMOGLOBIN 30.6 pg (25.0-35.0); MEAN CORPUSCULAR HGB CONC 30.9 g/dl (31.0-37.0); MONO # 0.6 (0.1-0.6); MONO % 11.5 % (1.0-6.0); RBC 3.04 10^6/uL (3.5-6.1); RED CELL DISTRIBUTION WIDTH 20.5 % (11.5-14.5); WHITE BLOOD COUNT 5.4 10^3/uL (4.5-11.0)
[2018-07-26 03:49] LABS: TROPONIN I 0.07 ng/mL
[2018-07-26 03:55] LABS: FREE T4 1.76 ng/dL (0.78-2.19)
[2018-07-26 04:07] LABS: ALBUMIN 3.7 g/dL (3.0-4.8); BILIRUBIN,DIRECT 0.9 mg/dL (0.0-0.4)
[2018-07-26] MEDS: Insulin Reg-LOW-Coverage SC SCH ×2 (06:40→08:06)
[2018-07-26] MEDS: Levothyroxine 50 MCG TAB PO SCH (06:41)
[2018-07-26] MEDS: Insulin Lispro (humaLOG) MEDIUM Coverage SC SCH ×4 (08:04→17:00)
[2018-07-26] MEDS: Insulin Human NPH 1 UNITS/0.01 ML SC SCH ×2 (08:05→16:55)
--- NOTE | 2018-07-26 08:32 | PN ---
DATE: 07/26/2018 SUBJECTIVE: The patient is seen and examined at bedside. She is comfortable. She is alert, awake, and oriented x3. She is not in respiratory or otherwise distress. PHYSICAL EXAMINATION: VITAL SIGNS: Heart rate 89, blood pressure 128/105, oxygen saturation of 98% on 3 liters nasal cannula. EARS, NOSE, AND THROAT: Head and neck atraumatic. LUNGS: Clear to auscultation bilaterally. HEART: Regular rate and rhythm. S1, S2 normal. ABDOMEN: Soft, nontender, nondistended. MUSCULOSKELETAL: No C/C/E. NEURO: The patient moves all extremities spontaneously. SKIN: Moist. PSYCH: The patient is alert, awake, and oriented x3. LABORATORIES: Sodium 138, potassium 3.3, chloride 99, carbon dioxide 29, BUN 20, creatinine 4.7, glucose 94, AST 51, ALT 19, total bilirubin 1.4, ammonia level 46 down from 125, LDH 783. Troponin x2 negative. WBC 5.4, hemoglobin 9.3, platelet count 81. Hepatitis B antibodies positive. MEDICATIONS: Tylenol p.r.n., acyclovir, aspirin, Lipitor, Sensipar, Aranesp, Colace, doxycycline, regular insulin sliding scale low protocol, NPH insulin, lactulose, enema, Xopenex, Synthroid, meropenem, metoprolol, midodrine, Protonix, Xifaxan, Renagel, and thiamine. ASSESSMENT AND PLAN: This is a 67-year-old lady who presented to intensive care unit with altered mental status, most likely due to hepatic encephalopathy. She was started on lactulose, and her mental status substantially improved. She had several bowel movements. The ammonia level went down to 46 from 125. She is hemodynamically and respiratory castellano stable. She is protecting her airways. She is not in respiratory or otherwise distress. Okay to downgrade to telemetry. She tolerated dialysis yesterday well. ccm time 40 min [place] MD JACINTA
--- NOTE | 2018-07-26 09:27 | CARD ---
APPROVED REPORT Date of service: 07/26/2018 EKG Measurement Heart [id number] <Conclusion> Atrial fibrillation Right bundle branch block Left anterior fascicular block Bifascicular block T wave abnormality, consider lateral ischemia or digitalis effect Abnormal ECG
--- NOTE | 2018-07-26 09:36 | CON ---
DATE: 07/26/2018 CARDIOLOGY CONSULTATION HISTORY: The patient is a 67-year-old woman who presented with altered mental status after given Benadryl in the residential. Currently, the patient's mental status is back to normal. She is oriented x3. PAST MEDICAL HISTORY: Includes diabetes mellitus, coronary artery disease, history of coronary bypass surgery, end-stage renal disease, on dialysis, and status post pacemaker placement. Her cardiac workup from her last admission reveals good LV function with LVH with an ejection fraction of 60-65%. There is severely dilated right ventricle without documented pulmonary hypertension. She is awake, alert. Denies chest pain, denies shortness of breath. SOCIAL HISTORY: The patient does not smoke. REVIEW OF SYSTEMS: All free of cardiac symptomatology. PHYSICAL EXAMINATION: VITAL SIGNS: Blood pressure is 125/55, heart rate is in the 80s. NECK: Negative JVD. LUNGS: Without rales. HEART: S1, S2. EXTREMITIES: Without edema. LABORATORY DATA: Includes an EKG that shows normal sinus rhythm with right bundle-branch block with diffuse ST-T changes. Hemoglobin is 9.3. Chemistries, BUN and creatinine are 20 and 4.7, the potassium is 3.3. IMPRESSION: 1. Transient altered mental status secondary to Benadryl. 2. Stable angina. 3. Recent [id number] elevation myocardial infarction. 4. Coronary artery disease. 5. History of coronary artery bypass surgery. 6. History of gastrointestinal bleed. 7. End-stage renal disease. 8. Diabetes mellitus. 9. History of pacemaker placement. Given these findings, the patient is hemodynamically stable. The patient can be transferred out of the unit today. Chan Berman MD
[2018-07-26] MEDS: Acyclovir 250 MG in Sodium Chloride 0.9% 100 ML IV SCH (09:49)
[2018-07-26] MEDS: Multivitamin Vitamin B Complex (Nephro-Vite) Tab PO SCH (09:59)
[2018-07-26] MEDS ORDERED: Thiamine 100 mg/ml Inj IV SCH ×2 (10:00→12:38)
[2018-07-26] MEDS ORDERED: Potassium Chloride 20 mEq/15 ml LIQ UD PO STA (10:19)
[2018-07-26] MEDS ORDERED: Thiamine 100 MG in Sodium Chloride 0.9% 50 ML IV ONE (12:45)
--- NOTE | 2018-07-26 12:58 | PN ---
DATE: 07/26/2018 SUBJECTIVE: The patient is lying in bed, awake. She complains of pruritus. OBJECTIVE: GENERAL: She is awake and alert. VITAL SIGNS: Reveal that she is afebrile. Blood pressure 102/51, heart rate of 88. HEENT: Reveal sclerae to be white. Conjunctivae pink. NECK: Supple. CHEST: Reveal lungs to be have decreased breath sounds. HEART: Reveals regular rate and rhythm. ABDOMEN: Obese, soft, nontender. EXTREMITIES: Show no edema. LABORATORY DATA: Reveal white blood cell count 5.4, hemoglobin 9.3, platelet count 81,000. Chemistries reveal total bilirubin 1.4, AST 51, ammonia level down to 46. IMPRESSION: 1. Hepatic encephalopathy. 2. Cirrhosis of the liver, etiology unclear. 3. End-stage renal disease on hemodialysis. 4. Diabetes mellitus. RECOMMENDATIONS: 1. Check hepatitis C antibody and serum ferritin level. 2. Continue lactulose 20 g twice a day and Xifaxan 550 mg twice a day. Angelito Terry MD
[2018-07-26] MEDS ORDERED: Albumin Human 25% (12.5 gm/50 ml) IV PRN (14:27)
--- NOTE | 2018-07-26 15:21 | CP.PCM.PN ---
Subjective - Date & Time of Evaluation Date of Evaluation: 07/26/18 Time of Evaluation: 15:20 - Subjective Subjective: Nephrology Consultation Note Assessment: stable AMS ? related to pain meds/sedative and or hepatic encephalopathy as ammonia elevated: IMPROVED pulmonary congestion, hypokalemia Diabetic chronic Kidney Disease (E11.22) Hypertensive Chronic Kidney Disease (I12.0) End stage renal disease (N18.6) dependence on hemodialysis (Z99.2) (TTS) via AVF Anemia (D64.9), Hyperphosphatemia (E83.39), Secondary Hyperparathyroidism (E21.1), HTN (I12.0) CAD s/p CABG obesity thrombocytopenia Lytic lesions ? underlying malignancy RV dysfunction, moderate to severe MR Plan: Will plan for next dialysis as per TTS schedule. Continue with Nephrovite 1 tab/day. PRBC as needed for anemia. weekly ADAM with HD continue with phos binders as orally accepting maintain hemodynamic stable. resumed midodrine 10 mg TID. no on acei/arb as bp usually low. albumin prn with HD ordered Glycemic control, Dialysis consistent diet Further work up/management as per primary team Dose meds/antibiotics (if needed) for ESRD status. Avoid fleets enema/magnesium based laxatives. GI, ID Neuro and cardiology following Thanks for allowing me to participate in care of your patient. Will follow patient with you. Please call if any Qs. had d/w team Dr Amrit Malone Office: [phone] CC: AMS reason for consult: ESRD HPI:Pt is a 67 F with hx of ESRD on hemodialysis (TTS) via AVF , last dialysis Sat, chronic anemia, hyperphosphatemia, secondary hyperparathyroidism, Diabetes Mellitus, hypertension CAD s/p CABG, chronic back pain presented with complaints of AMS.Renal consult requested for ESRD management. [place] had similar and [place] [facility] [place] which was attributed to pain meds ROS: c/o chronic backpain. AMS much better. no SOB Physical Examination: General Appearance: in no acute respiratory distress, comfortable Vitals reviewed and noted as below Head; Atraumatic, normocephalic ENT: no ulcers no thrush. Tongue is midline. Oropharynx: no rash or ulcers. Neck; supple no lymphadenopathy, no thyromegaly or bruit Lungs: Normal respiratory rate/effort. Breath sounds bilateral equal and clear Heart: Normal rate. s1s2 normal. No rub or gallop. Extremities: no Rt edema. No varicose veins. has chronic left leg edema Neurological: Patient is communicative . awake alert today Skin: Warm and dry. Normal turgor. No rash. Palpitation: Normal elasticity for age Abdomen: Abdomen is soft. Bowel sounds +. There is no abdominal tenderness, no guarding/rigidity or organomegaly Psych: limited insight MSK: no joint tenderness or swelling. Digits and nails normal, no deformity : kidney or bladder not palpable Access: AVF Labs/imaging reviewed. Past medical history, past surgical history, family history, social history, allergy reviewed and noted as below Family Hx: no hx of CKD. Non contributory Objective - Vital Signs/Intake and Output Vital Signs (last 24 hours): Temp Pulse Resp BP Pulse Ox 97.7 F 71 29 H 102/51 L 98 07/26/18 06:00 07/26/18 12:37 07/26/18 12:37 07/26/18 08:08 07/26/18 06:42 Intake and Output: 07/26/18 07/26/18 06:59 18:59 Intake Total 550 Balance 550 - Medications Medications: Current Medications Acetaminophen (Tylenol 325mg Tab) 650 mg PO Q6 PRN PRN Reason: TEMP>=99.5F Last Admin: 07/26/18 12:30 Dose: 650 mg Acetaminophen (Tylenol 650 Mg Supp) 650 mg RC Q6H PRN PRN Reason: TEMP>=99.5F Albumin Human (Albumin Human 25% (12.5 Gm/50 Ml)) 25 gm IV TTS PRN PRN Reason: Other Aspirin (Aspirin Chewable) 81 mg PO DAILY [facility] [place] Last Admin: 07/26/18 10:00 Dose: 81 mg Atorvastatin Calcium (Lipitor) 80 mg PO HS [facility] [place] Last Admin: 07/25/18 21:01 Dose: 80 mg Cinacalcet (Sensipar) 30 mg PO DIN [facility] [place] Last Admin: 07/25/18 18:25 Dose: Not Given Darbepoetin Glenn (Aranesp) 60 mcg IVP QWK [facility] [place] Last Admin: 07/25/18 15:30 Dose: 60 mcg Dextrose (Dextrose 50% Inj) 0 ml IV STAT PRN; Protocol PRN Reason: Hypoglycemia Protocol Diphenhydramine HCl (Benadryl Maximum Strength 1%) 1 ea TOP Q6H PRN PRN Reason: Itching / Pruritus Docusate Sodium (Colace) 100 mg PO TID [facility] [place] Last Admin: 07/26/18 09:59 Dose: 100 mg Doxycycline Hyclate (Doryx) 100 mg PO Q12 [facility] [place]; Protocol Dextrose (Dextrose 5% In Water 1000 Ml) 1,000 mls @ 0 mls/hr IV .Q0M PRN; Protocol PRN Reason: Hypoglycemia Protocol Meropenem 250 mg/ Sodium (Chloride) 100 mls @ 100 mls/hr IVPB Q12H [facility] [place]; Protocol Stop: 07/26/18 20:31 Last Admin: 07/25/18 21:53 Dose: 100 mls/hr Thiamine HCl 100 mg/ Sodium (Chloride) 51 mls @ 153 mls/hr IV DAILY [facility] [place] Insulin Human Lispro (Humalog Med) 0 units SC AC [facility] [place]; Protocol Last Admin: 07/26/18 08:04 Dose: Not Given Insulin Human NPH (Humulin N) 10 units SC ACB [facility] [place] Last Admin: 07/26/18 08:05 Dose: Not Given Insulin Human NPH (Humulin N) 10 units SC DAILY@1745 [facility] [place] Last Admin: 07/25/18 18:24 Dose: Not Given Insulin Human Regular (Humulin R Low) 0 units SC ACHS [facility] [place]; Protocol Last Admin: 07/26/18 08:06 Dose: Not Given Lactulose (Enulose) 20 gm PO BID [facility] [place] Last Admin: 07/26/18 12:29 Dose: 20 gm Levalbuterol HCl (Xopenex) 0.63 mg IH [id number] [facility] [place] Last Admin: 07/26/18 13:12 Dose: 0.63 mg Levothyroxine Sodium (Synthroid) 50 mcg PO 0600 [facility] [place] Last Admin: 07/26/18 06:41 Dose: 50 mcg Metoprolol Tartrate (Lopressor) 25 mg PO BRKDIN [facility] [place] Last Admin: 07/26/18 08:08 Dose: 25 mg Midodrine (Proamatine) 10 mg PO TID [facility] [place] Last Admin: 07/26/18 09:59 Dose: 10 mg Ondansetron HCl (Zofran Inj) 4 mg IVP Q4H PRN PRN Reason: Nausea/Vomiting Pantoprazole Sodium (Protonix Ec Tab) 40 mg PO Q12 [facility] Rifaximin (Xifaxan) 550 mg PO BID [facility]; Protocol Last Admin: 07/26/18 09:59 Dose: 550 mg Sennosides (Senokot Tab) 17.2 mg PO HS [facility] [place] Last Admin: 07/25/18 21:01 Dose: 17.2 mg Sevelamer HCl (Renagel) 800 mg PO TID [facility] [place] Last Admin: 07/26/18 09:58 Dose: 800 mg Vitamin B Complex/Vit C/Folic Acid (Nephro-Jose Miguel) 1 tab PO DAILY [facility] [place] Last Admin: 07/26/18 09:59 Dose: 1 tab - Labs Labs: 07/26/18 03:15 07/26/18 03:15 PT 14.6 SECONDS (9.4-12.5) H 07/25/18 09:40 INR 1.29 07/25/18 09:40 APTT 28.2 Seconds (26.9-38.3) 07/25/18 09:40
--- NOTE | 2018-07-26 15:50 | CP.PCM.PN ---
<Adam Beth - Last Filed: 07/26/18 15:46> Subjective - Date & Time of Evaluation Date of Evaluation: 07/26/18 Time of Evaluation: 09:05 - Subjective Subjective: Adam Beth D.O. PGY-3, Internal Medicine Resident, Infectious Disease Progress Note 67-year-old female with a past medical history of renal failure on hemodialysis, coronary artery disease, hypothyroidism, diabetes, cirrhosis of the liver, pacemaker insertion who presents for complaints of altered mental status. Infectious disease consultation was requested. Patient was seen and examined at bedside. Overall doing significantly better and much more oriented. Objective - Vital Signs/Intake and Output Vital Signs (last 24 hours): Temp Pulse Resp BP Pulse Ox 97.7 F 71 29 H 102/51 L 98 07/26/18 06:00 07/26/18 12:37 07/26/18 12:37 07/26/18 08:08 07/26/18 06:42 Intake and Output: 07/26/18 07/26/18 06:59 18:59 Intake Total 550 Balance 550 - Medications Medications: Current Medications Acetaminophen (Tylenol 325mg Tab) 650 mg PO Q6 PRN PRN Reason: TEMP>=99.5F Last Admin: 07/26/18 12:30 Dose: 650 mg Acetaminophen (Tylenol 650 Mg Supp) 650 mg RC Q6H PRN PRN Reason: TEMP>=99.5F Albumin Human (Albumin Human 25% (12.5 Gm/50 Ml)) 25 gm IV TTS PRN PRN Reason: Other Aspirin (Aspirin Chewable) 81 mg PO DAILY [facility] [place] Last Admin: 07/26/18 10:00 Dose: 81 mg Atorvastatin Calcium (Lipitor) 80 mg PO HS [facility] [place] Last Admin: 07/25/18 21:01 Dose: 80 mg Cinacalcet (Sensipar) 30 mg PO DIN [facility] [place] Last Admin: 07/25/18 18:25 Dose: Not Given Darbepoetin Glenn (Aranesp) 60 mcg IVP QWK [facility] [place] Last Admin: 07/25/18 15:30 Dose: 60 mcg Dextrose (Dextrose 50% Inj) 0 ml IV STAT PRN; Protocol PRN Reason: Hypoglycemia Protocol Diphenhydramine HCl (Benadryl Maximum Strength 1%) 1 ea TOP Q6H PRN PRN Reason: Itching / Pruritus Docusate Sodium (Colace) 100 mg PO TID [facility] [place] Last Admin: 07/26/18 09:59 Dose: 100 mg Doxycycline Hyclate (Doryx) 100 mg PO Q12 [facility] [place]; Protocol Dextrose (Dextrose 5% In Water 1000 Ml) 1,000 mls @ 0 mls/hr IV .Q0M PRN; Protocol PRN Reason: Hypoglycemia Protocol Meropenem 250 mg/ Sodium (Chloride) 100 mls @ 100 mls/hr IVPB Q12H [facility] [place]; Protocol Stop: 07/26/18 20:31 Last Admin: 07/25/18 21:53 Dose: 100 mls/hr Thiamine HCl 100 mg/ Sodium (Chloride) 51 mls @ 153 mls/hr IV DAILY [facility] [place] Insulin Human Lispro (Humalog Med) 0 units SC AC [facility] [place]; Protocol Last Admin: 07/26/18 08:04 Dose: Not Given Insulin Human NPH (Humulin N) 10 units SC ACB [facility] [place] Last Admin: 07/26/18 08:05 Dose: Not Given Insulin Human NPH (Humulin N) 10 units SC DAILY@1745 [facility] [place] Last Admin: 07/25/18 18:24 Dose: Not Given Insulin Human Regular (Humulin R Low) 0 units SC ACHS [facility] [place]; Protocol Last Admin: 07/26/18 08:06 Dose: Not Given Lactulose (Enulose) 20 gm PO BID [facility] [place] Last Admin: 07/26/18 12:29 Dose: 20 gm Levalbuterol HCl (Xopenex) 0.63 mg IH [id number] [facility] [place] Last Admin: 07/26/18 13:12 Dose: 0.63 mg Levothyroxine Sodium (Synthroid) 50 mcg PO 0600 [facility] [place] Last Admin: 07/26/18 06:41 Dose: 50 mcg Lidocaine (Lidoderm) 1 ea TD DAILY [facility] [place] Metoprolol Tartrate (Lopressor) 25 mg PO BRKDIN [facility] [place] Last Admin: 07/26/18 08:08 Dose: 25 mg Midodrine (Proamatine) 10 mg PO TID [facility] [place] Last Admin: 07/26/18 09:59 Dose: 10 mg Ondansetron HCl (Zofran Inj) 4 mg IVP Q4H PRN PRN Reason: Nausea/Vomiting Pantoprazole Sodium (Protonix Ec Tab) 40 mg PO Q12 [facility] [place] Rifaximin (Xifaxan) 550 mg PO BID [facility] [place]; Protocol Last Admin: 07/26/18 09:59 Dose: 550 mg Sennosides (Senokot Tab) 17.2 mg PO HS [facility] Last Admin: 07/25/18 21:01 Dose: 17.2 mg Sevelamer HCl (Renagel) 800 mg PO TID [facility] Last Admin: 07/26/18 09:58 Dose: 800 mg Vitamin B Complex/Vit C/Folic Acid (Nephro-Jose Miguel) 1 tab PO DAILY [facility] Last Admin: 07/26/18 09:59 Dose: 1 tab - Labs Labs: 07/26/18 03:15 07/26/18 03:15 PT 14.6 SECONDS (9.4-12.5) H 07/25/18 09:40 INR 1.29 07/25/18 09:40 APTT 28.2 Seconds (26.9-38.3) 07/25/18 09:40 - Constitutional Appears: Non-toxic, No Acute Distress - Head Exam Head Exam: ATRAUMATIC - Eye Exam Eye Exam: EOMI. absent: Scleral icterus - ENT Exam ENT Exam: Mucous Membranes Moist - Neck Exam Neck Exam: Normal Inspection - Respiratory Exam Respiratory Exam: absent: Rhonchi, Wheezes - Cardiovascular Exam Cardiovascular Exam: +S1, +S2 - GI/Abdominal Exam GI & Abdominal Exam: Soft. absent: Tenderness - Extremities Exam Extremities Exam: absent: Tenderness - Neurological Exam Neurological Exam: Alert, Awake, Oriented x3 - Skin Skin Exam: Dry, Warm Assessment and Plan - Assessment and Plan (Free Text) Assessment: 67-year-old female with a past medical history of renal failure on hemodialysis, coronary artery disease, hypothyroidism, diabetes, cirrhosis of the liver, pacemaker insertion who presents for complaints of altered mental status. Plan: Altered mental status Currently this does not appear to be an infectious process Has not had fevers or tachycardia or leukocytosis or tachypnea Was empirically on antibiotics however we will discontinue the acyclovir and meropenem We will continue on doxycycline we will switch from IV to p.o. she is awake and alert now BCXs negative 2/2 day 1 Procalcitonin normal Patient was seen and examined and case will be discussed with attending physician Thank you for the pleasure participating in the care of this patient <Bill Whitt - Last Filed: 07/26/18 21:33> Objective - Vital Signs/Intake and Output Vital Signs (last 24 hours): Temp Pulse Resp BP Pulse Ox 97.9 F 92 H 30 H 144/90 98 07/26/18 16:00 07/26/18 20:22 07/26/18 20:22 07/26/18 17:01 07/26/18 06:42 Intake and Output: 07/26/18 07/27/18 18:59 06:59 Intake Total 900 Output Total 0 Balance 900 - Medications Medications: Current Medications Acetaminophen (Tylenol 325mg Tab) 650 mg PO Q6 PRN PRN Reason: TEMP>=99.5F Last Admin: 07/26/18 12:30 Dose: 650 mg Acetaminophen (Tylenol 650 Mg Supp) 650 mg RC Q6H PRN PRN Reason: TEMP>=99.5F Albumin Human (Albumin Human 25% (12.5 Gm/50 Ml)) 25 gm IV TTS PRN PRN Reason: Other Aspirin (Aspirin Chewable) 81 mg PO DAILY [facility] Last Admin: 07/26/18 10:00 Dose: 81 mg Atorvastatin Calcium (Lipitor) 80 mg PO HS [facility] Last Admin: 07/25/18 21:01 Dose: 80 mg Cinacalcet (Sensipar) 30 mg PO DIN [facility] Last Admin: 07/26/18 17:12 Dose: 30 mg Darbepoetin Glenn (Aranesp) 60 mcg IVP QWK [facility] Last Admin: 07/25/18 15:30 Dose: 60 mcg Dextrose (Dextrose 50% Inj) 0 ml IV STAT PRN; Protocol PRN Reason: Hypoglycemia Protocol Diphenhydramine HCl (Benadryl Maximum Strength 1%) 1 ea TOP Q6H PRN PRN Reason: Itching / Pruritus Last Admin: 07/26/18 16:56 Dose: 1 applic Docusate Sodium (Colace) 100 mg PO BID [facility] Doxycycline Hyclate (Doryx) 100 mg PO Q12 [facility]; Protocol Dextrose (Dextrose 5% In Water 1000 Ml) 1,000 mls @ 0 mls/hr IV .Q0M PRN; Protocol PRN Reason: Hypoglycemia Protocol Thiamine HCl 100 mg/ Sodium (Chloride) 51 mls @ 153 mls/hr IV DAILY [facility] Insulin Human Lispro (Humalog Med) 0 units SC AC [facility]; Protocol Last Admin: 07/26/18 17:00 Dose: 3 u Insulin Human NPH (Humulin N) 10 units SC ACB [facility] [place] Last Admin: 07/26/18 08:05 Dose: Not Given Insulin Human NPH (Humulin N) 10 units SC DAILY@1745 [facility] [place] Last Admin: 07/26/18 16:55 Dose: 10 unit Lactic Acid (Lac-Hydrin 12% Cream (140 G)) 0 ea TOP DAILY [facility] [place] Levalbuterol HCl (Xopenex) 0.63 mg IH [id number] [facility] [place] Last Admin: 07/26/18 20:10 Dose: 0.63 mg Levothyroxine Sodium (Synthroid) 50 mcg PO 0600 [facility] [place] Last Admin: 07/26/18 06:41 Dose: 50 mcg Lidocaine (Lidoderm) 1 ea TD DAILY [facility] [place] Metoprolol Tartrate (Lopressor) 25 mg PO BRKDIN [facility] [place] Last Admin: 07/26/18 17:01 Dose: 25 mg Midodrine (Proamatine) 10 mg PO TID [facility] [place] Last Admin: 07/26/18 17:02 Dose: 10 mg Ondansetron HCl (Zofran Inj) 4 mg IVP Q4H PRN PRN Reason: Nausea/Vomiting Pantoprazole Sodium (Protonix Ec Tab) 40 mg PO Q12 [facility] [place] Rifaximin (Xifaxan) 550 mg PO BID [facility] [place]; Protocol Last Admin: 07/26/18 09:59 Dose: 550 mg Sennosides (Senokot Tab) 17.2 mg PO HS [facility] [place] Last Admin: 07/25/18 21:01 Dose: 17.2 mg Sevelamer HCl (Renagel) 800 mg PO TID [facility] [place] Last Admin: 07/26/18 17:03 Dose: 800 mg Vitamin B Complex/Vit C/Folic Acid (Nephro-Jose Miguel) 1 tab PO DAILY [facility] [place] Last Admin: 07/26/18 09:59 Dose: 1 tab - Labs Labs: 07/26/18 03:15 07/26/18 03:15 PT 14.6 SECONDS (9.4-12.5) H 07/25/18 09:40 INR 1.29 07/25/18 09:40 APTT 28.2 Seconds (26.9-38.3) 07/25/18 09:40 Attending/Attestation - Attestation I have personally seen and examined this patient.: Yes I have fully participated in the care of the patient.: Yes I have reviewed all pertinent clinical information, including history, physical exam and plan: Yes
--- NOTE | 2018-07-26 16:26 | CP.PCM.CON ---
<Mariam Meyers - Last Filed: 07/26/18 17:57> History of Present Illness - History of Present Illness History of Present Illness: Hepatobiliary Surgery Consult note for Dr. Betts Patient is a 67 F with PMH CAD s/p CABG and 5 stents, ESRD on HD (Tuesday, , Tuesday), hypertension, hypothyroidism, diabetes mellitus who was admitted for AMS and was responsive only to painful stimuli. Surgery was consulted for Hepatic Encephalopathy. Pt states she has had elevated ammonia levels for several months, she attributes this to a medication she was prescribed recently. she does not remember the name She otherwise denies any f/c, n/v, abdominal pain, hemoptysis, or hematochezia. PMHx CAD s/p CABG and 5 stents, ESRD on HD (Tuesday, , Tuesday), hypertension, hypothyroidism, diabetes mellitus, hyperparathyroidism PSHx CABG Meds as per EMR FHx NC Social: previous smoker and ETOH abuse (unsure of stop date/will not answer), no illicit drug abuse Allergies PCN, Shellfish, TCA Review of Systems - Review of Systems All systems: reviewed and no additional remarkable complaints except (as per HPI) Past Patient History - Infectious Disease Hx of Infectious Diseases: None - Past Social History Smoking Status: Former Smoker - CARDIAC Hx Cardiac Disorders: Yes Hx Hypertension: Yes - PULMONARY Hx Respiratory Disorders: No - NEUROLOGICAL Hx Neurological Disorder: No - HEENT Hx HEENT Problems: No - RENAL Hx Renal Failure: Yes - ENDOCRINE/METABOLIC Hx Hypothyroidism: Yes - HEMATOLOGICAL/ONCOLOGICAL Hx Blood Disorders: No - INTEGUMENTARY Hx Dermatological Problems: No - MUSCULOSKELETAL/RHEUMATOLOGICAL Hx Musculoskeletal Disorders: Yes Hx Back Pain: Yes Hx Falls: Yes Hx Unsteady Gait: Yes (walker) - GASTROINTESTINAL Hx Gastrointestinal Disorders: No - GENITOURINARY/GYNECOLOGICAL Hx Genitourinary Disorders: No - PSYCHIATRIC Hx Psychophysiologic Disorder: No Hx Substance Use: No - SURGICAL HISTORY Hx Coronary Stent: Yes (5) Other/Comment: right av shunt placement. tonsillectomy - ANESTHESIA Hx Anesthesia: Yes Hx Anesthesia Reactions: No Hx Malignant Hyperthermia: No Meds Allergies/Adverse Reactions: Allergies Allergy/AdvReac Type Severity Reaction Status Date / Time amitriptyline Allergy RASH Verified 07/25/18 14:26 Iodinated Contrast- Oral and Allergy RASH Verified 07/25/18 14:26 IV Dye Penicillins Allergy RASH Verified 07/25/18 14:26 shellfish derived Allergy RASH Verified 07/25/18 14:26 - Medications Medications: Current Medications Acetaminophen (Tylenol 325mg Tab) 650 mg PO Q6 PRN PRN Reason: TEMP>=99.5F Last Admin: 07/26/18 12:30 Dose: 650 mg Acetaminophen (Tylenol 650 Mg Supp) 650 mg RC Q6H PRN PRN Reason: TEMP>=99.5F Albumin Human (Albumin Human 25% (12.5 Gm/50 Ml)) 25 gm IV TTS PRN PRN Reason: Other Aspirin (Aspirin Chewable) 81 mg PO DAILY [facility] Last Admin: 07/26/18 10:00 Dose: 81 mg Atorvastatin Calcium (Lipitor) 80 mg PO HS [facility] Last Admin: 07/25/18 21:01 Dose: 80 mg Cinacalcet (Sensipar) 30 mg PO DIN [facility] Last Admin: 07/25/18 18:25 Dose: Not Given Darbepoetin Glenn (Aranesp) 60 mcg IVP QWK [facility] Last Admin: 07/25/18 15:30 Dose: 60 mcg Dextrose (Dextrose 50% Inj) 0 ml IV STAT PRN; Protocol PRN Reason: Hypoglycemia Protocol Diphenhydramine HCl (Benadryl Maximum Strength 1%) 1 ea TOP Q6H PRN PRN Reason: Itching / Pruritus Docusate Sodium (Colace) 100 mg PO TID [facility] Last Admin: 07/26/18 09:59 Dose: 100 mg Doxycycline Hyclate (Doryx) 100 mg PO Q12 [facility]; Protocol Dextrose (Dextrose 5% In Water 1000 Ml) 1,000 mls @ 0 mls/hr IV .Q0M PRN; Protocol PRN Reason: Hypoglycemia Protocol Meropenem 250 mg/ Sodium (Chloride) 100 mls @ 100 mls/hr IVPB Q12H [facility]; Protocol Stop: 07/26/18 20:31 Last Admin: 07/25/18 21:53 Dose: 100 mls/hr Thiamine HCl 100 mg/ Sodium (Chloride) 51 mls @ 153 mls/hr IV DAILY [facility] Insulin Human Lispro (Humalog Med) 0 units SC AC [facility]; Protocol Last Admin: 07/26/18 08:04 Dose: Not Given Insulin Human NPH (Humulin N) 10 units SC ACB [facility] Last Admin: 07/26/18 08:05 Dose: Not Given Insulin Human NPH (Humulin N) 10 units SC DAILY@1745 [facility] Last Admin: 07/25/18 18:24 Dose: Not Given Insulin Human Regular (Humulin R Low) 0 units SC ACHS [facility]; Protocol Last Admin: 07/26/18 08:06 Dose: Not Given Lactulose (Enulose) 20 gm PO BID [facility] Last Admin: 07/26/18 12:29 Dose: 20 gm Levalbuterol HCl (Xopenex) 0.63 mg IH [id number] [facility] Last Admin: 07/26/18 13:12 Dose: 0.63 mg Levothyroxine Sodium (Synthroid) 50 mcg PO 0600 [facility] Last Admin: 07/26/18 06:41 Dose: 50 mcg Lidocaine (Lidoderm) 1 ea TD DAILY [facility] Metoprolol Tartrate (Lopressor) 25 mg PO BRKDIN [facility] Last Admin: 07/26/18 08:08 Dose: 25 mg Midodrine (Proamatine) 10 mg PO TID [facility] Last Admin: 07/26/18 09:59 Dose: 10 mg Ondansetron HCl (Zofran Inj) 4 mg IVP Q4H PRN PRN Reason: Nausea/Vomiting Pantoprazole Sodium (Protonix Ec Tab) 40 mg PO Q12 [facility] Rifaximin (Xifaxan) 550 mg PO BID [facility]; Protocol Last Admin: 07/26/18 09:59 Dose: 550 mg Sennosides (Senokot Tab) 17.2 mg PO HS [facility] Last Admin: 07/25/18 21:01 Dose: 17.2 mg Sevelamer HCl (Renagel) 800 mg PO TID [facility] Last Admin: 07/26/18 09:58 Dose: 800 mg Vitamin B Complex/Vit C/Folic Acid (Nephro-Jose Miguel) 1 tab PO DAILY [facility] Last Admin: 07/26/18 09:59 Dose: 1 tab Physical Exam - Constitutional Appears: Well, Non-toxic, No Acute Distress - Head Exam Head Exam: ATRAUMATIC, NORMOCEPHALIC - Eye Exam Eye Exam: EOMI. absent: Scleral icterus - ENT Exam ENT Exam: Mucous Membranes Moist - Respiratory Exam Respiratory Exam: NORMAL BREATHING PATTERN - Cardiovascular Exam Cardiovascular Exam: REGULAR RHYTHM - GI/Abdominal Exam GI & Abdominal Exam: Soft. absent: Distended, Guarding, Tenderness - Extremities Exam Extremities exam: Negative for: calf tenderness - Neurological Exam Neurological exam: Alert - Psychiatric Exam Psychiatric exam: Normal Affect, Normal Mood - Skin Skin Exam: Dry, Intact, Normal Color, Warm Results - Vital Signs Recent Vital Signs: Last Vital Signs Temp 97.7 F 07/26/18 06:00 Pulse 71 07/26/18 12:37 Resp 29 H 07/26/18 12:37 BP 102/51 L 07/26/18 08:08 Pulse Ox 98 07/26/18 06:42 - Labs Result Diagrams: 07/26/18 03:15 07/26/18 03:15 Labs: Laboratory Results - last 24 hr 07/25/18 07/25/18 07/25/18 11:20 14:00 14:00 WBC RBC Hgb Hct MCV MCH MCHC RDW Plt Count Manual Plt Count MPV Neut % (Auto) Lymph % (Auto) [place] % (Auto) Eos % (Auto) Baso % (Auto) Lymph # (Auto) [place] # (Auto) Eos # (Auto) Baso # (Auto) Absolute Neuts (auto) Sodium Potassium Chloride Carbon Dioxide Anion Gap BUN Creatinine Est GFR ( Amer) Est GFR (Non-Af Amer) POC Glucose (mg/dL) Random Glucose Calcium Phosphorus Magnesium Total Bilirubin Direct Bilirubin AST ALT Alkaline Phosphatase Ammonia Lactate Dehydrogenase Total Creatine Kinase Troponin I Total Protein Albumin Globulin Albumin/Globulin Ratio Triglycerides Cholesterol LDL Cholesterol Direct HDL Cholesterol Procalcitonin 0.23 Free T4 Thyroxine (T4) TSH 3rd Generation Hep Bs Antigen Negative Hep Bs Antibody Positive Hep B Core IgM Ab Negative 07/25/18 07/25/18 07/25/18 18:27 19:38 22:03 WBC RBC Hgb Hct MCV MCH MCHC RDW Plt Count Manual Plt Count MPV Neut % (Auto) Lymph % (Auto) [place] % (Auto) Eos % (Auto) Baso % (Auto) Lymph # (Auto) [place] # (Auto) Eos # (Auto) Baso # (Auto) Absolute Neuts (auto) Sodium Potassium Chloride Carbon Dioxide Anion Gap BUN Creatinine Est GFR ( Amer) Est GFR (Non-Af Amer) POC Glucose (mg/dL) 85 103 Random Glucose Calcium Phosphorus Magnesium Total Bilirubin Direct Bilirubin AST ALT Alkaline Phosphatase Ammonia Lactate Dehydrogenase 827 H Total Creatine Kinase 161 Troponin I 0.07 Total Protein Albumin Globulin Albumin/Globulin Ratio Triglycerides Cholesterol LDL Cholesterol Direct HDL Cholesterol Procalcitonin Free T4 Thyroxine (T4) TSH 3rd Generation Hep Bs Antigen Hep Bs Antibody Hep B Core IgM Ab 07/26/18 07/26/18 07/26/18 03:15 03:15 03:15 WBC 5.4 RBC 3.04 L Hgb 9.3 L Hct 30.1 L MCV 99.0 MCH 30.6 MCHC 30.9 L RDW 20.5 H Plt Count 81 L Manual Plt Count MPV 10.0 Neut % (Auto) 66.7 Lymph % (Auto) 19.9 L [place] % (Auto) 11.5 H Eos % (Auto) 1.5 Baso % (Auto) 0.4 Lymph # (Auto) 1.1 L [place] # (Auto) 0.6 Eos # (Auto) 0.1 Baso # (Auto) 0.02 Absolute Neuts (auto) 3.60 Sodium 138 Potassium 3.3 L Chloride 99 Carbon Dioxide 29 Anion Gap 13 BUN 20 Creatinine 4.7 H Est GFR ( Amer) 11 Est GFR (Non-Af Amer) 9 POC Glucose (mg/dL) Random Glucose 138 H Calcium 9.0 Phosphorus 3.1 Magnesium 2.1 Total Bilirubin 1.4 H Direct Bilirubin 0.9 H AST 51 H ALT 19 Alkaline Phosphatase 124 Ammonia 46 H D Lactate Dehydrogenase 783 H Total Creatine Kinase 200 Troponin I 0.07 Total Protein 7.4 Albumin 3.7 Globulin 3.8 Albumin/Globulin Ratio 1.0 L Triglycerides 108 Cholesterol 91 L LDL Cholesterol Direct 37 HDL Cholesterol 27 L Procalcitonin Free T4 Thyroxine (T4) TSH 3rd Generation Hep Bs Antigen Hep Bs Antibody Hep B Core IgM Ab 07/26/18 07/26/18 07/26/18 03:15 07:28 09:20 WBC RBC Hgb Hct MCV MCH MCHC RDW Plt Count Manual Plt Count 90 L MPV Neut % (Auto) Lymph % (Auto) [place] % (Auto) Eos % (Auto) Baso % (Auto) Lymph # (Auto) [place] # (Auto) Eos # (Auto) Baso # (Auto) Absolute Neuts (auto) Sodium Potassium Chloride Carbon Dioxide Anion Gap BUN Creatinine Est GFR ( Amer) Est GFR (Non-Af Amer) POC Glucose (mg/dL) 94 Random Glucose Calcium Phosphorus Magnesium Total Bilirubin Direct Bilirubin AST ALT Alkaline Phosphatase Ammonia Lactate Dehydrogenase Total Creatine Kinase Troponin I Total Protein Albumin Globulin Albumin/Globulin Ratio Triglycerides Cholesterol LDL Cholesterol Direct HDL Cholesterol Procalcitonin Free T4 1.76 Thyroxine (T4) 9.3 TSH 3rd Generation 4.03 Hep Bs Antigen Hep Bs Antibody Hep B Core IgM Ab 07/26/18 11:23 WBC RBC Hgb Hct MCV MCH MCHC RDW Plt Count Manual Plt Count MPV Neut % (Auto) Lymph % (Auto) [place] % (Auto) Eos % (Auto) Baso % (Auto) Lymph # (Auto) [place] # (Auto) Eos # (Auto) Baso # (Auto) Absolute Neuts (auto) Sodium Potassium Chloride Carbon Dioxide Anion Gap BUN Creatinine Est GFR ( Amer) Est GFR (Non-Af Amer) POC Glucose (mg/dL) 176 H Random Glucose Calcium Phosphorus Magnesium Total Bilirubin Direct Bilirubin AST ALT Alkaline Phosphatase Ammonia Lactate Dehydrogenase Total Creatine Kinase Troponin I Total Protein Albumin Globulin Albumin/Globulin Ratio Triglycerides Cholesterol LDL Cholesterol Direct HDL Cholesterol Procalcitonin Free T4 Thyroxine (T4) TSH 3rd Generation Hep Bs Antigen Hep Bs Antibody Hep B Core IgM Ab Assessment & Plan - Assessment and Plan (Free Text) Assessment: 67 F with Hepatic Encephalopathy Plan: - agree with Lactulose and Rifamixin - Monitor Lactulose levels and mental status - will follow up medication patient took with family? - may need US every 6 months for monitoring of liver pathology - MELD 25, Richi Arevalo Class B recommend referral to Liver transplant program - medical management for other comorbidities as per ICU, cardio and nephrology teams - jamieer recommendations per Dr. Shauna Meyers, PGY 1 - Date & Time Date: 07/26/18 Time: 15:30 <Rjaendra Betts - Last Filed: 08/01/18 13:43> History of Present Illness - History of Present Illness History of Present Illness: Patient adequately managed for encephalopathy by Dr Terry. Will deferred to him if he will treat her HCV infection. Will need dose adjustment in view of renal failure. Needs ultrasound of liver every 6 months for liver cancer surveillance All medical record entries made by the resident were at my direction. I have reviewed the chart and agree that the record accurately reflects my personal performance of the history, physical exam, medical decision making. I have also personally directed, reviewed, and agree with the resident note Results - Vital Signs Recent Vital Signs: Last Vital Signs Temp 97.2 F L 07/30/18 18:00 Pulse 77 07/31/18 09:02 Resp 20 07/30/18 18:00 BP 104/55 L 07/31/18 09:02 Pulse Ox 95 07/30/18 18:00 - Labs Result Diagrams: 07/30/18 11:20 07/30/18 11:20 Assessment & Plan (1) Cirrhosis Status: Acute (2) Hepatitis C antibody positive in blood Status: Acute (3) Encephalopathy Status: Acute
--- NOTE | 2018-07-26 16:32 | CP.CCUPN ---
<Clay Antunez - Last Filed: 07/26/18 17:01> CCU Subjective - Physician Review Events Since Last Encounter (Free Text): 07/26/18 16:29 Pt mental status has greatly improved. Subjective (Free Text): 07/26/18 16:30 Pt seen and examined this morning at bedside in the ICU. Pt reports back pain. Denies chest pain or SOB. Critical Care Time Spent (in minutes): 45 CCU Objective - Vital Signs / Intake & Output Vital Signs (Last 4 hours): Vital Signs Pulse Resp 07/26/18 12:37 71 29 H 07/26/18 12:36 79 21 07/26/18 12:35 73 68 H 07/26/18 12:34 71 33 H 07/26/18 12:33 82 23 07/26/18 12:32 75 07/26/18 12:31 75 28 H 07/26/18 12:30 78 16 07/26/18 12:29 78 24 Intake and Output (Last 8hrs): Intake & Output 07/26/18 07/26/18 07/26/18 06:59 14:59 22:59 Intake Total 550 Balance 550 Intake: IV 300 Left Hand 300 Oral 250 Other: # Bowel Movements 3 - Physical Exam Physical Exam Limitations: Negative for: Altered Mental Status Head: Positive for: Atraumatic, Normocephalic Extroacular Muscles: Positive for: EOMI Mouth: Positive for: Moist Mucous Membranes Neck: Positive for: Normal Range of Motion Respiratory/Chest: Positive for: Clear to Auscultation, Good Air Exchange, Decreased Breath Sounds, Other (Several healed surgical scars noted to chest wall). Negative for: Respiratory Distress, Accessory Muscle Use Cardiovascular: Positive for: Regular Rate and Rhythm, Normal S1, S2. Negative for: Murmurs Abdomen: Negative for: Tenderness, Distention, Peritoneal Signs Upper Extremity: Positive for: Normal Inspection. Negative for: Cyanosis, Edema Lower Extremity: Positive for: Normal Inspection, NORMAL PULSES. Negative for: Edema, CALF TENDERNESS Neurological: Positive for: Speech Normal, Other (Unable to respond to verbal stimuli. Spontaneously moves all extremities.) Skin: Positive for: Warm, Dry, Normal Color. Negative for: Rashes Psychiatric: Positive for: Alert, Oriented x 3, Lethargic - Medications Active Medications: Active Medications Generic Name Dose Route Start Last Admin Trade Name Freq PRN Reason Stop Dose Admin Acetaminophen 650 mg 07/25/18 11:05 07/26/18 12:30 Tylenol 325mg Tab PO 650 mg Q6 PRN Administration TEMP>=99.5F Acetaminophen 650 mg 07/25/18 11:05 Tylenol 650 Mg Supp RC Q6H PRN TEMP>=99.5F Albumin Human 25 gm 07/26/18 14:27 Albumin Human 25% (12.5 Gm/50 Ml) IV TTS PRN Other Aspirin 81 mg 07/25/18 11:15 07/26/18 10:00 Aspirin Chewable PO 81 mg DAILY RAISSA Administration Atorvastatin Calcium 80 mg 07/25/18 22:00 07/25/18 21:01 Lipitor PO 80 mg HS RAISSA Administration Cinacalcet 30 mg 07/25/18 17:00 07/25/18 18:25 Sensipar PO Not Given DIN RAISSA Darbepoetin Glenn 60 mcg 07/25/18 12:45 07/25/18 15:30 Aranesp IVP 60 mcg QWK RAISSA Administration Dextrose 0 ml 07/25/18 11:05 Dextrose 50% Inj IV STAT PRN Hypoglycemia Protocol Protocol Diphenhydramine HCl 1 ea 07/26/18 14:58 Benadryl Maximum Strength 1% TOP Q6H PRN Itching / Pruritus Docusate Sodium 100 mg 07/25/18 14:00 07/26/18 09:59 Colace PO 100 mg TID RAISSA Administration Doxycycline Hyclate 100 mg 07/26/18 22:00 Doryx PO Q12 RAISSA Protocol Dextrose 1,000 mls @ 0 mls/hr 07/25/18 11:05 Dextrose 5% In Water 1000 Ml IV .Q0M PRN Hypoglycemia Protocol Protocol Per Protocol Meropenem 250 mg/ Sodium 100 mls @ 100 mls/hr 07/25/18 20:30 07/25/18 21:53 Chloride IVPB 07/26/18 20:31 100 mls/hr Q12H RAISSA Administration Protocol Thiamine HCl 100 mg/ Sodium 51 mls @ 153 mls/hr 07/27/18 10:00 Chloride IV DAILY RAISSA Insulin Human Lispro 0 units 07/25/18 11:30 07/26/18 08:04 Humalog Med SC Not Given AC RAISSA Protocol Insulin Human NPH 10 units 07/26/18 07:30 07/26/18 08:05 Humulin N SC Not Given ACB [facility] Insulin Human NPH 10 units 07/25/18 17:45 07/25/18 18:24 Humulin N SC Not Given DAILY@1745 [facility], [facility] Insulin Human Regular 0 units 07/25/18 11:30 07/26/18 08:06 Humulin R Low SC Not Given ACHS [facility], [facility]1983 Protocol Lactulose 20 gm 07/26/18 10:30 07/26/18 12:29 Enulose PO 20 gm BID [facility] Administration Levalbuterol HCl 0.63 mg 07/25/18 14:00 07/26/18 13:12 Xopenex IH 0.63 mg [id number] [facility]1983 Administration Levothyroxine Sodium 50 mcg 07/26/18 06:00 07/26/18 06:41 Synthroid PO 50 mcg 0600 [facility] Administration Lidocaine 1 ea 07/26/18 15:30 Lidoderm TD DAILY [facility] Metoprolol Tartrate 25 mg 07/25/18 17:00 07/26/18 08:08 Lopressor PO 25 mg [id number] [facility] Administration Midodrine 10 mg 07/25/18 14:00 07/26/18 09:59 Proamatine PO 10 mg TID [facility] Administration Ondansetron HCl 4 mg 07/25/18 11:05 Zofran Inj IVP Q4H PRN Nausea/Vomiting Pantoprazole Sodium 40 mg 07/26/18 22:00 Protonix Ec Tab PO Q12 [facility] Rifaximin 550 mg 07/25/18 18:00 07/26/18 09:59 Xifaxan PO 550 mg BID [facility] Administration Protocol Sennosides 17.2 mg 07/25/18 22:00 07/25/18 21:01 Senokot Tab PO 17.2 mg HS RAISSA Administration Sevelamer HCl 800 mg 07/25/18 14:00 07/26/18 09:58 Renagel PO 800 mg TID [facility] Administration Vitamin B Complex/Vit C/Folic Acid 1 tab 07/25/18 11:15 07/26/18 09:59 Nephro-Jose Miguel PO 1 tab DAILY RAISSA Administration - Patient Studies Lab Studies: Microbiology Studies 07/25/18 09:00 Blood Culture - Preliminary Blood NO GROWTH AFTER 24 HOURS 07/25/18 09:30 Blood Culture - Preliminary Blood NO GROWTH AFTER 24 HOURS Lab Studies 07/26/18 07/26/18 07/26/18 Range/Units 11:23 09:20 07:28 WBC (4.5-11.0) 10^3/uL RBC (3.5-6.1) 10^6/uL Hgb (12.0-16.0) g/dL Hct (36.0-48.0) % MCV (80.0-105.0) fl MCH (25.0-35.0) pg MCHC (31.0-37.0) g/dl RDW (11.5-14.5) % Plt Count (120.0-450.0) 10^3/uL Manual Plt Count 90 L (120-450) K/mm3 MPV (7.0-11.0) fl Neut % (Auto) (50.0-68.0) % Lymph % (Auto) (22.0-35.0) % Morrow % (Auto) (1.0-6.0) % Eos % (Auto) (1.5-5.0) % Baso % (Auto) (0.0-3.0) % Lymph # (Auto) (1.2-3.4) Morrow # (Auto) (0.1-0.6) Eos # (Auto) (0.0-0.7) Baso # (Auto) (0.0-2.0) K/mm3 Absolute Neuts (auto) (1.4-6.5) Sodium (132-148) mmol/L Potassium (3.6-5.0) mmol/L Chloride (98-107) mmol/L Carbon Dioxide (21-33) mmol/L Anion Gap (10-20) BUN (7-21) mg/dL Creatinine (0.7-1.2) mg/dl Est GFR ( Amer) Est GFR (Non-Af Amer) POC Glucose (mg/dL) 176 H 94 (65-110) mg/dL Random Glucose (70-110) mg/dL Calcium (8.4-10.5) mg/dL Phosphorus (2.5-4.5) mg/dL Magnesium (1.7-2.2) mg/dL Total Bilirubin (0.2-1.3) mg/dL Direct Bilirubin (0.0-0.4) mg/dL AST (14-36) U/L ALT (7-56) U/L Alkaline Phosphatase (38-126) U/L Ammonia (9-33) umol/L Lactate Dehydrogenase (333-699) U/L Total Creatine Kinase (35-230) U/L Troponin I ng/mL Total Protein (5.8-8.3) g/dL Albumin (3.0-4.8) g/dL Globulin gm/dL Albumin/Globulin Ratio (1.1-1.8) Triglycerides (35-160) mg/dL Cholesterol (130-200) mg/dL LDL Cholesterol Direct (0-129) mg/dL HDL Cholesterol (29-60) mg/dL Procalcitonin (0.19-0.49) NG/ML Free T4 (0.78-2.19) ng/dL Thyroxine (T4) (5.5-11.0) ug/dL TSH 3rd Generation (0.46-4.68) mIU/mL Hep Bs Antigen (NEGATIVE) Hep Bs Antibody (NEGATIVE) Hep B Core IgM Ab (NEGATIVE) 07/26/18 07/26/18 07/26/18 Range/Units 03:15 03:15 03:15 WBC 5.4 (4.5-11.0) 10^3/uL RBC 3.04 L (3.5-6.1) 10^6/uL Hgb 9.3 L (12.0-16.0) g/dL Hct 30.1 L (36.0-48.0) % MCV 99.0 (80.0-105.0) fl MCH 30.6 (25.0-35.0) pg MCHC 30.9 L (31.0-37.0) g/dl RDW 20.5 H (11.5-14.5) % Plt Count 81 L (120.0-450.0) 10^3/uL Manual Plt Count (120-450) K/mm3 MPV 10.0 (7.0-11.0) fl Neut % (Auto) 66.7 (50.0-68.0) % Lymph % (Auto) 19.9 L (22.0-35.0) % Morrow % (Auto) 11.5 H (1.0-6.0) % Eos % (Auto) 1.5 (1.5-5.0) % Baso % (Auto) 0.4 (0.0-3.0) % Lymph # (Auto) 1.1 L (1.2-3.4) Morrow # (Auto) 0.6 (0.1-0.6) Eos # (Auto) 0.1 (0.0-0.7) Baso # (Auto) 0.02 (0.0-2.0) K/mm3 Absolute Neuts (auto) 3.60 (1.4-6.5) Sodium (132-148) mmol/L Potassium (3.6-5.0) mmol/L Chloride (98-107) mmol/L Carbon Dioxide (21-33) mmol/L Anion Gap (10-20) BUN (7-21) mg/dL Creatinine (0.7-1.2) mg/dl Est GFR ( Amer) Est GFR (Non-Af Amer) POC Glucose (mg/dL) (65-110) mg/dL Random Glucose (70-110) mg/dL Calcium (8.4-10.5) mg/dL Phosphorus (2.5-4.5) mg/dL Magnesium (1.7-2.2) mg/dL Total Bilirubin (0.2-1.3) mg/dL Direct Bilirubin (0.0-0.4) mg/dL AST (14-36) U/L ALT (7-56) U/L Alkaline Phosphatase (38-126) U/L Ammonia 46 H D (9-33) umol/L Lactate Dehydrogenase (333-699) U/L Total Creatine Kinase (35-230) U/L Troponin I ng/mL Total Protein (5.8-8.3) g/dL Albumin (3.0-4.8) g/dL Globulin gm/dL Albumin/Globulin Ratio (1.1-1.8) Triglycerides (35-160) mg/dL Cholesterol (130-200) mg/dL LDL Cholesterol Direct (0-129) mg/dL HDL Cholesterol (29-60) mg/dL Procalcitonin (0.19-0.49) NG/ML Free T4 1.76 (0.78-2.19) ng/dL Thyroxine (T4) 9.3 (5.5-11.0) ug/dL TSH 3rd Generation 4.03 (0.46-4.68) mIU/mL Hep Bs Antigen (NEGATIVE) Hep Bs Antibody (NEGATIVE) Hep B Core IgM Ab (NEGATIVE) 07/26/18 07/25/18 07/25/18 Range/Units 03:15 22:03 19:38 WBC (4.5-11.0) 10^3/uL RBC (3.5-6.1) 10^6/uL Hgb (12.0-16.0) g/dL Hct (36.0-48.0) % MCV (80.0-105.0) fl MCH (25.0-35.0) pg MCHC (31.0-37.0) g/dl RDW (11.5-14.5) % Plt Count (120.0-450.0) 10^3/uL Manual Plt Count (120-450) K/mm3 MPV (7.0-11.0) fl Neut % (Auto) (50.0-68.0) % Lymph % (Auto) (22.0-35.0) % Morrow % (Auto) (1.0-6.0) % Eos % (Auto) (1.5-5.0) % Baso % (Auto) (0.0-3.0) % Lymph # (Auto) (1.2-3.4) Morrow # (Auto) (0.1-0.6) Eos # (Auto) (0.0-0.7) Baso # (Auto) (0.0-2.0) K/mm3 Absolute Neuts (auto) (1.4-6.5) Sodium 138 (132-148) mmol/L Potassium 3.3 L (3.6-5.0) mmol/L Chloride 99 (98-107) mmol/L Carbon Dioxide 29 (21-33) mmol/L Anion Gap 13 (10-20) BUN 20 (7-21) mg/dL Creatinine 4.7 H (0.7-1.2) mg/dl Est GFR ( Amer) 11 Est GFR (Non-Af Amer) 9 POC Glucose (mg/dL) 103 (65-110) mg/dL Random Glucose 138 H (70-110) mg/dL Calcium 9.0 (8.4-10.5) mg/dL Phosphorus 3.1 (2.5-4.5) mg/dL Magnesium 2.1 (1.7-2.2) mg/dL Total Bilirubin 1.4 H (0.2-1.3) mg/dL Direct Bilirubin 0.9 H (0.0-0.4) mg/dL AST 51 H (14-36) U/L ALT 19 (7-56) U/L Alkaline Phosphatase 124 (38-126) U/L Ammonia (9-33) umol/L Lactate Dehydrogenase 783 H 827 H (333-699) U/L Total Creatine Kinase 200 161 (35-230) U/L Troponin I 0.07 0.07 ng/mL Total Protein 7.4 (5.8-8.3) g/dL Albumin 3.7 (3.0-4.8) g/dL Globulin 3.8 gm/dL Albumin/Globulin Ratio 1.0 L (1.1-1.8) Triglycerides 108 (35-160) mg/dL Cholesterol 91 L (130-200) mg/dL LDL Cholesterol Direct 37 (0-129) mg/dL HDL Cholesterol 27 L (29-60) mg/dL Procalcitonin (0.19-0.49) NG/ML Free T4 (0.78-2.19) ng/dL Thyroxine (T4) (5.5-11.0) ug/dL TSH 3rd Generation (0.46-4.68) mIU/mL Hep Bs Antigen (NEGATIVE) Hep Bs Antibody (NEGATIVE) Hep B Core IgM Ab (NEGATIVE) 07/25/18 07/25/18 07/25/18 Range/Units 18:27 14:00 14:00 WBC (4.5-11.0) 10^3/uL RBC (3.5-6.1) 10^6/uL Hgb (12.0-16.0) g/dL Hct (36.0-48.0) % MCV (80.0-105.0) fl MCH (25.0-35.0) pg MCHC (31.0-37.0) g/dl RDW (11.5-14.5) % Plt Count (120.0-450.0) 10^3/uL Manual Plt Count (120-450) K/mm3 MPV (7.0-11.0) fl Neut % (Auto) (50.0-68.0) % Lymph % (Auto) (22.0-35.0) % Morrow % (Auto) (1.0-6.0) % Eos % (Auto) (1.5-5.0) % Baso % (Auto) (0.0-3.0) % Lymph # (Auto) (1.2-3.4) Morrow # (Auto) (0.1-0.6) Eos # (Auto) (0.0-0.7) Baso # (Auto) (0.0-2.0) K/mm3 Absolute Neuts (auto) (1.4-6.5) Sodium (132-148) mmol/L Potassium (3.6-5.0) mmol/L Chloride (98-107) mmol/L Carbon Dioxide (21-33) mmol/L Anion Gap (10-20) BUN (7-21) mg/dL Creatinine (0.7-1.2) mg/dl Est GFR ( Amer) Est GFR (Non-Af Amer) POC Glucose (mg/dL) 85 (65-110) mg/dL Random Glucose (70-110) mg/dL Calcium (8.4-10.5) mg/dL Phosphorus (2.5-4.5) mg/dL Magnesium (1.7-2.2) mg/dL Total Bilirubin (0.2-1.3) mg/dL Direct Bilirubin (0.0-0.4) mg/dL AST (14-36) U/L ALT (7-56) U/L Alkaline Phosphatase (38-126) U/L Ammonia (9-33) umol/L Lactate Dehydrogenase (333-699) U/L Total Creatine Kinase (35-230) U/L Troponin I ng/mL Total Protein (5.8-8.3) g/dL Albumin (3.0-4.8) g/dL Globulin gm/dL Albumin/Globulin Ratio (1.1-1.8) Triglycerides (35-160) mg/dL Cholesterol (130-200) mg/dL LDL Cholesterol Direct (0-129) mg/dL HDL Cholesterol (29-60) mg/dL Procalcitonin (0.19-0.49) NG/ML Free T4 (0.78-2.19) ng/dL Thyroxine (T4) (5.5-11.0) ug/dL TSH 3rd Generation (0.46-4.68) mIU/mL Hep Bs Antigen Negative (NEGATIVE) Hep Bs Antibody Positive (NEGATIVE) Hep B Core IgM Ab Negative (NEGATIVE) 07/25/18 Range/Units 11:20 WBC (4.5-11.0) 10^3/uL RBC (3.5-6.1) 10^6/uL Hgb (12.0-16.0) g/dL Hct (36.0-48.0) % MCV (80.0-105.0) fl MCH (25.0-35.0) pg MCHC (31.0-37.0) g/dl RDW (11.5-14.5) % Plt Count (120.0-450.0) 10^3/uL Manual Plt Count (120-450) K/mm3 MPV (7.0-11.0) fl Neut % (Auto) (50.0-68.0) % Lymph % (Auto) (22.0-35.0) % Morrow % (Auto) (1.0-6.0) % Eos % (Auto) (1.5-5.0) % Baso % (Auto) (0.0-3.0) % Lymph # (Auto) (1.2-3.4) Morrow # (Auto) (0.1-0.6) Eos # (Auto) (0.0-0.7) Baso # (Auto) (0.0-2.0) K/mm3 Absolute Neuts (auto) (1.4-6.5) Sodium (132-148) mmol/L Potassium (3.6-5.0) mmol/L Chloride (98-107) mmol/L Carbon Dioxide (21-33) mmol/L Anion Gap (10-20) BUN (7-21) mg/dL Creatinine (0.7-1.2) mg/dl Est GFR ( Amer) Est GFR (Non-Af Amer) POC Glucose (mg/dL) (65-110) mg/dL Random Glucose (70-110) mg/dL Calcium (8.4-10.5) mg/dL Phosphorus (2.5-4.5) mg/dL Magnesium (1.7-2.2) mg/dL Total Bilirubin (0.2-1.3) mg/dL Direct Bilirubin (0.0-0.4) mg/dL AST (14-36) U/L ALT (7-56) U/L Alkaline Phosphatase (38-126) U/L Ammonia (9-33) umol/L Lactate Dehydrogenase (333-699) U/L Total Creatine Kinase (35-230) U/L Troponin I ng/mL Total Protein (5.8-8.3) g/dL Albumin (3.0-4.8) g/dL Globulin gm/dL Albumin/Globulin Ratio (1.1-1.8) Triglycerides (35-160) mg/dL Cholesterol (130-200) mg/dL LDL Cholesterol Direct (0-129) mg/dL HDL Cholesterol (29-60) mg/dL Procalcitonin 0.23 (0.19-0.49) NG/ML Free T4 (0.78-2.19) ng/dL Thyroxine (T4) (5.5-11.0) ug/dL TSH 3rd Generation (0.46-4.68) mIU/mL Hep Bs Antigen (NEGATIVE) Hep Bs Antibody (NEGATIVE) Hep B Core IgM Ab (NEGATIVE) Laboratory Results - last 24 hr 07/25/18 07/25/18 07/25/18 11:20 14:00 14:00 WBC RBC Hgb Hct MCV MCH MCHC RDW Plt Count Manual Plt Count MPV Neut % (Auto) Lymph % (Auto) Morrow % (Auto) Eos % (Auto) Baso % (Auto) Lymph # (Auto) Morrow # (Auto) Eos # (Auto) Baso # (Auto) Absolute Neuts (auto) Sodium Potassium Chloride Carbon Dioxide Anion Gap BUN Creatinine Est GFR ( Amer) Est GFR (Non-Af Amer) POC Glucose (mg/dL) Random Glucose Calcium Phosphorus Magnesium Total Bilirubin Direct Bilirubin AST ALT Alkaline Phosphatase Ammonia Lactate Dehydrogenase Total Creatine Kinase Troponin I Total Protein Albumin Globulin Albumin/Globulin Ratio Triglycerides Cholesterol LDL Cholesterol Direct HDL Cholesterol Procalcitonin 0.23 Free T4 Thyroxine (T4) TSH 3rd Generation Hep Bs Antigen Negative Hep Bs Antibody Positive Hep B Core IgM Ab Negative 07/25/18 07/25/18 07/25/18 18:27 19:38 22:03 WBC RBC Hgb Hct MCV MCH MCHC RDW Plt Count Manual Plt Count MPV Neut % (Auto) Lymph % (Auto) Morrow % (Auto) Eos % (Auto) Baso % (Auto) Lymph # (Auto) Morrow # (Auto) Eos # (Auto) Baso # (Auto) Absolute Neuts (auto) Sodium Potassium Chloride Carbon Dioxide Anion Gap BUN Creatinine Est GFR ( Amer) Est GFR (Non-Af Amer) POC Glucose (mg/dL) 85 103 Random Glucose Calcium Phosphorus Magnesium Total Bilirubin Direct Bilirubin AST ALT Alkaline Phosphatase Ammonia Lactate Dehydrogenase 827 H Total Creatine Kinase 161 Troponin I 0.07 Total Protein Albumin Globulin Albumin/Globulin Ratio Triglycerides Cholesterol LDL Cholesterol Direct HDL Cholesterol Procalcitonin Free T4 Thyroxine (T4) TSH 3rd Generation Hep Bs Antigen Hep Bs Antibody Hep B Core IgM Ab 07/26/18 07/26/18 07/26/18 03:15 03:15 03:15 WBC 5.4 RBC 3.04 L Hgb 9.3 L Hct 30.1 L MCV 99.0 MCH 30.6 MCHC 30.9 L RDW 20.5 H Plt Count 81 L Manual Plt Count MPV 10.0 Neut % (Auto) 66.7 Lymph % (Auto) 19.9 L Morrow % (Auto) 11.5 H Eos % (Auto) 1.5 Baso % (Auto) 0.4 Lymph # (Auto) 1.1 L [place]row # (Auto) 0.6 Eos # (Auto) 0.1 Baso # (Auto) 0.02 Absolute Neuts (auto) 3.60 Sodium 138 Potassium 3.3 L Chloride 99 Carbon Dioxide 29 Anion Gap 13 BUN 20 Creatinine 4.7 H Est GFR ( Amer) 11 Est GFR (Non-Af Amer) 9 POC Glucose (mg/dL) Random Glucose 138 H Calcium 9.0 Phosphorus 3.1 Magnesium 2.1 Total Bilirubin 1.4 H Direct Bilirubin 0.9 H AST 51 H ALT 19 Alkaline Phosphatase 124 Ammonia 46 H D Lactate Dehydrogenase 783 H Total Creatine Kinase 200 Troponin I 0.07 Total Protein 7.4 Albumin 3.7 Globulin 3.8 Albumin/Globulin Ratio 1.0 L Triglycerides 108 Cholesterol 91 L LDL Cholesterol Direct 37 HDL Cholesterol 27 L Procalcitonin Free T4 Thyroxine (T4) TSH 3rd Generation Hep Bs Antigen Hep Bs Antibody Hep B Core IgM Ab 07/26/18 07/26/18 07/26/18 03:15 07:28 09:20 WBC RBC Hgb Hct MCV MCH MCHC RDW Plt Count Manual Plt Count 90 L MPV Neut % (Auto) Lymph % (Auto) Morrow % (Auto) Eos % (Auto) Baso % (Auto) Lymph # (Auto) [place]row # (Auto) Eos # (Auto) Baso # (Auto) Absolute Neuts (auto) Sodium Potassium Chloride Carbon Dioxide Anion Gap BUN Creatinine Est GFR ( Amer) Est GFR (Non-Af Amer) POC Glucose (mg/dL) 94 Random Glucose Calcium Phosphorus Magnesium Total Bilirubin Direct Bilirubin AST ALT Alkaline Phosphatase Ammonia Lactate Dehydrogenase Total Creatine Kinase Troponin I Total Protein Albumin Globulin Albumin/Globulin Ratio Triglycerides Cholesterol LDL Cholesterol Direct HDL Cholesterol Procalcitonin Free T4 1.76 Thyroxine (T4) 9.3 TSH 3rd Generation 4.03 Hep Bs Antigen Hep Bs Antibody Hep B Core IgM Ab 07/26/18 11:23 WBC RBC Hgb Hct MCV MCH MCHC RDW Plt Count Manual Plt Count MPV Neut % (Auto) Lymph % (Auto) Morrow % (Auto) Eos % (Auto) Baso % (Auto) Lymph # (Auto) Morrow # (Auto) Eos # (Auto) Baso # (Auto) Absolute Neuts (auto) Sodium Potassium Chloride Carbon Dioxide Anion Gap BUN Creatinine Est GFR ( Amer) Est GFR (Non-Af Amer) POC Glucose (mg/dL) 176 H Random Glucose Calcium Phosphorus Magnesium Total Bilirubin Direct Bilirubin AST ALT Alkaline Phosphatase Ammonia Lactate Dehydrogenase Total Creatine Kinase Troponin I Total Protein Albumin Globulin Albumin/Globulin Ratio Triglycerides Cholesterol LDL Cholesterol Direct HDL Cholesterol Procalcitonin Free T4 Thyroxine (T4) TSH 3rd Generation Hep Bs Antigen Hep Bs Antibody Hep B Core IgM Ab EKG/Cardiology Studies: Cardiology / EKG Studies 07/26/18 06:00 ELECTROCARDIOGRAM DAILY Comment: Reason For Exam: alcohol withdrawal 07/27/18 07:00 EKG [ELECTROCARDIOGRAM] DAILY Comment: Reason For Exam: ??AFIB 07/28/18 07:00 EKG [ELECTROCARDIOGRAM] DAILY Comment: Reason For Exam: ??AFIB Fingerstick Blood Sugar Results: 94 Critical Care Progress Note - Nutrition Nutrition: Nutrition Category Date Time Status Renal Diet [DIET] Diets 07/26/18 Breakfast Ordered Assessment/Plan - Assessment and Plan (Free Text) Assessment: Pt is a 67yo female with a PMH of CAD with stents, CABG, ESRD on HD, DM, HTN, hypothyroid who presented with AMS. Plan: Neuro - AMS on arrival - Head CT unremarkable - Neuro consulted, Dr Dandy Quan - CAD - HTN - Maintain MAP >65 - trop negative x2 - BNP [id number] - ASA, Lipitor, lopressor, midodrine - Cardio consulted, Dr Berman Pulm - Maintain O2 sat >92 - xopenex GI - pantoprazole - AST 51 - Ammonia 46 - lactulose - GI consulted, Dr Terry Heme - monitor H/H - Hgb 9.3 - INR 1.29 - Darbepoetin Nephro - ESRD - Cr 4.7 - BUN 20 - monitor electrolytes - Nephro consulted, Dr Malone Endo - DM - hypothyroid - maintain euglycemia - synthroid ID - no leukocytosis - vanc, doxy, merrem - ID consulted Dispo: pt to be transferred to tele Pt seen, examined, assessment and plan discussed with Dr Rafael Antunez PGY1 - Date & Time Date: 07/26/18 Time: 07:00 <Chavez Hall - Last Filed: 07/26/18 18:05> CCU Objective - Vital Signs / Intake & Output Vital Signs (Last 4 hours): Vital Signs Temp Pulse Resp BP 07/26/18 17:19 77 17 07/26/18 17:18 73 23 07/26/18 17:17 75 29 H 07/26/18 17:16 77 25 H 07/26/18 17:15 83 38 H 07/26/18 17:14 76 18 07/26/18 17:13 77 18 07/26/18 17:12 81 24 07/26/18 17:11 76 47 H 07/26/18 17:10 82 12 07/26/18 17:09 78 16 07/26/18 17:08 77 24 07/26/18 17:07 76 15 07/26/18 17:06 93 H 25 H 07/26/18 17:05 76 24 07/26/18 17:04 75 20 07/26/18 17:03 73 22 07/26/18 17:02 75 23 07/26/18 17:01 79 20 144/90 07/26/18 17:00 73 17 07/26/18 16:59 67 07/26/18 16:58 74 17 07/26/18 16:57 80 21 07/26/18 16:56 74 21 07/26/18 16:55 71 42 H 07/26/18 16:54 98 H 07/26/18 16:53 73 18 07/26/18 16:52 78 18 07/26/18 16:51 72 35 H 07/26/18 16:50 69 07/26/18 16:49 76 29 H 07/26/18 16:48 75 22 07/26/18 16:47 73 17 07/26/18 16:46 144/90 07/26/18 16:45 79 19 07/26/18 16:44 73 30 H 07/26/18 16:43 76 07/26/18 16:42 75 36 H 07/26/18 16:41 77 19 07/26/18 16:40 76 30 H 07/26/18 16:39 81 25 H 07/26/18 16:38 78 07/26/18 16:37 75 07/26/18 16:36 78 27 H 07/26/18 16:35 77 07/26/18 16:34 78 24 07/26/18 16:33 74 18 07/26/18 16:32 75 46 H 07/26/18 16:31 82 07/26/18 16:30 74 21 07/26/18 16:00 97.9 F Intake and Output (Last 8hrs): Intake & Output 07/26/18 07/26/18 07/26/18 06:59 14:59 22:59 Intake Total 550 Balance 550 Intake: IV 300 Left Hand 300 Oral 250 Other: # Bowel Movements 3 - Medications Active Medications: Active Medications Generic Name Dose Route Start Last Admin Trade Name Freq PRN Reason Stop Dose Admin Acetaminophen 650 mg 07/25/18 11:05 07/26/18 12:30 Tylenol 325mg Tab PO 650 mg Q6 PRN Administration TEMP>=99.5F Acetaminophen 650 mg 07/25/18 11:05 Tylenol 650 Mg Supp RC Q6H PRN TEMP>=99.5F Albumin Human 25 gm 07/26/18 14:27 Albumin Human 25% (12.5 Gm/50 Ml) IV TTS PRN Other Aspirin 81 mg 07/25/18 11:15 07/26/18 10:00 Aspirin Chewable PO 81 mg DAILY RAISSA Administration Atorvastatin Calcium 80 mg 07/25/18 22:00 07/25/18 21:01 Lipitor PO 80 mg HS RAISSA Administration Cinacalcet 30 mg 07/25/18 17:00 07/26/18 17:12 Sensipar PO 30 mg DIN RAISSA Administration Darbepoetin Glenn 60 mcg 07/25/18 12:45 07/25/18 15:30 Aranesp IVP 60 mcg QWK RAISSA Administration Dextrose 0 ml 07/25/18 11:05 Dextrose 50% Inj IV STAT PRN Hypoglycemia Protocol Protocol Diphenhydramine HCl 1 ea 07/26/18 14:58 07/26/18 16:56 Benadryl Maximum Strength 1% TOP 1 applic Q6H PRN Administration Itching / Pruritus Docusate Sodium 100 mg 07/26/18 18:00 Colace PO BID RAISSA Doxycycline Hyclate 100 mg 07/26/18 22:00 Doryx PO Q12 RAISSA Protocol Dextrose 1,000 mls @ 0 mls/hr 07/25/18 11:05 Dextrose 5% In Water 1000 Ml IV .Q0M PRN Hypoglycemia Protocol Protocol Per Protocol Meropenem 250 mg/ Sodium 100 mls @ 100 mls/hr 07/25/18 20:30 07/26/18 09:30 Chloride IVPB 07/26/18 20:31 100 mls/hr Q12H RAISSA Administration Protocol Thiamine HCl 100 mg/ Sodium 51 mls @ 153 mls/hr 07/27/18 10:00 Chloride IV DAILY RAISSA Insulin Human Lispro 0 units 07/25/18 11:30 07/26/18 17:00 Humalog Med SC 3 u AC RAISSA Administration Protocol Insulin Human NPH 10 units 07/26/18 07:30 07/26/18 08:05 Humulin N SC Not Given ACB RAISSA Insulin Human NPH 10 units 07/25/18 17:45 07/26/18 16:55 Humulin N SC 10 unit DAILY@1745 RAISSA Administration Lactic Acid 0 ea 07/27/18 10:00 Lac-Hydrin 12% Cream (140 G) TOP DAILY RAISSA Levalbuterol HCl 0.63 mg 07/25/18 14:00 07/26/18 13:12 Xopenex IH 0.63 mg [id number] RAISSA Administration Levothyroxine Sodium 50 mcg 07/26/18 06:00 07/26/18 06:41 Synthroid PO 50 mcg 0600 RAISSA Administration Lidocaine 1 ea 07/26/18 15:30 Lidoderm TD DAILY RAISSA Metoprolol Tartrate 25 mg 07/25/18 17:00 07/26/18 17:01 Lopressor PO 25 mg BRKDIN RAISSA Administration Midodrine 10 mg 07/25/18 14:00 07/26/18 17:02 Proamatine PO 10 mg TID RAISSA Administration Ondansetron HCl 4 mg 07/25/18 11:05 Zofran Inj IVP Q4H PRN Nausea/Vomiting Pantoprazole Sodium 40 mg 07/26/18 22:00 Protonix Ec Tab PO Q12 RAISSA Rifaximin 550 mg 07/25/18 18:00 07/26/18 09:59 Xifaxan PO 550 mg BID RAISSA Administration Protocol Sennosides 17.2 mg 07/25/18 22:00 07/25/18 21:01 Senokot Tab PO 17.2 mg HS RAISSA Administration Sevelamer HCl 800 mg 07/25/18 14:00 07/26/18 17:03 Renagel PO 800 mg TID RAISSA Administration Vitamin B Complex/Vit C/Folic Acid 1 tab 07/25/18 11:15 07/26/18 09:59 Nephro-Jose Miguel PO 1 tab DAILY RAISSA Administration - Patient Studies Lab Studies: Microbiology Studies 07/25/18 09:00 Blood Culture - Preliminary Blood NO GROWTH AFTER 24 HOURS 07/25/18 09:30 Blood Culture - Preliminary Blood NO GROWTH AFTER 24 HOURS Lab Studies 07/26/18 07/26/18 07/26/18 Range/Units 15:57 11:23 09:20 WBC (4.5-11.0) 10^3/uL RBC (3.5-6.1) 10^6/uL Hgb (12.0-16.0) g/dL Hct (36.0-48.0) % MCV (80.0-105.0) fl MCH (25.0-35.0) pg MCHC (31.0-37.0) g/dl RDW (11.5-14.5) % Plt Count (120.0-450.0) 10^3/uL Manual Plt Count 90 L (120-450) K/mm3 MPV (7.0-11.0) fl Neut % (Auto) (50.0-68.0) % Lymph % (Auto) (22.0-35.0) % Morrow % (Auto) (1.0-6.0) % Eos % (Auto) (1.5-5.0) % Baso % (Auto) (0.0-3.0) % Lymph # (Auto) (1.2-3.4) Morrow # (Auto) (0.1-0.6) Eos # (Auto) (0.0-0.7) Baso # (Auto) (0.0-2.0) K/mm3 Absolute Neuts (auto) (1.4-6.5) Sodium (132-148) mmol/L Potassium (3.6-5.0) mmol/L Chloride (98-107) mmol/L Carbon Dioxide (21-33) mmol/L Anion Gap (10-20) BUN (7-21) mg/dL Creatinine (0.7-1.2) mg/dl Est GFR ( Amer) Est GFR (Non-Af Amer) POC Glucose (mg/dL) 225 H 176 H (65-110) mg/dL Random Glucose (70-110) mg/dL Calcium (8.4-10.5) mg/dL Phosphorus (2.5-4.5) mg/dL Magnesium (1.7-2.2) mg/dL Total Bilirubin (0.2-1.3) mg/dL Direct Bilirubin (0.0-0.4) mg/dL AST (14-36) U/L ALT (7-56) U/L Alkaline Phosphatase (38-126) U/L Ammonia (9-33) umol/L Lactate Dehydrogenase (333-699) U/L Total Creatine Kinase (35-230) U/L Troponin I ng/mL Total Protein (5.8-8.3) g/dL Albumin (3.0-4.8) g/dL Globulin gm/dL Albumin/Globulin Ratio (1.1-1.8) Triglycerides (35-160) mg/dL Cholesterol (130-200) mg/dL LDL Cholesterol Direct (0-129) mg/dL HDL Cholesterol (29-60) mg/dL Free T4 (0.78-2.19) ng/dL Thyroxine (T4) (5.5-11.0) ug/dL TSH 3rd Generation (0.46-4.68) mIU/mL Hep Bs Antigen (NEGATIVE) Hep Bs Antibody (NEGATIVE) Hep B Core IgM Ab (NEGATIVE) 07/26/18 07/26/18 07/26/18 Range/Units 07:28 03:15 03:15 WBC (4.5-11.0) 10^3/uL RBC (3.5-6.1) 10^6/uL Hgb (12.0-16.0) g/dL Hct (36.0-48.0) % MCV (80.0-105.0) fl MCH (25.0-35.0) pg MCHC (31.0-37.0) g/dl RDW (11.5-14.5) % Plt Count (120.0-450.0) 10^3/uL Manual Plt Count (120-450) K/mm3 MPV (7.0-11.0) fl Neut % (Auto) (50.0-68.0) % Lymph % (Auto) (22.0-35.0) % Morrow % (Auto) (1.0-6.0) % Eos % (Auto) (1.5-5.0) % Baso % (Auto) (0.0-3.0) % Lymph # (Auto) (1.2-3.4) Morrow # (Auto) (0.1-0.6) Eos # (Auto) (0.0-0.7) Baso # (Auto) (0.0-2.0) K/mm3 Absolute Neuts (auto) (1.4-6.5) Sodium (132-148) mmol/L Potassium (3.6-5.0) mmol/L Chloride (98-107) mmol/L Carbon Dioxide (21-33) mmol/L Anion Gap (10-20) BUN (7-21) mg/dL Creatinine (0.7-1.2) mg/dl Est GFR ( Amer) Est GFR (Non-Af Amer) POC Glucose (mg/dL) 94 (65-110) mg/dL Random Glucose (70-110) mg/dL Calcium (8.4-10.5) mg/dL Phosphorus (2.5-4.5) mg/dL Magnesium (1.7-2.2) mg/dL Total Bilirubin (0.2-1.3) mg/dL Direct Bilirubin (0.0-0.4) mg/dL AST (14-36) U/L ALT (7-56) U/L Alkaline Phosphatase (38-126) U/L Ammonia 46 H D (9-33) umol/L Lactate Dehydrogenase (333-699) U/L Total Creatine Kinase (35-230) U/L Troponin I ng/mL Total Protein (5.8-8.3) g/dL Albumin (3.0-4.8) g/dL Globulin gm/dL Albumin/Globulin Ratio (1.1-1.8) Triglycerides (35-160) mg/dL Cholesterol (130-200) mg/dL LDL Cholesterol Direct (0-129) mg/dL HDL Cholesterol (29-60) mg/dL Free T4 1.76 (0.78-2.19) ng/dL Thyroxine (T4) 9.3 (5.5-11.0) ug/dL TSH 3rd Generation 4.03 (0.46-4.68) mIU/mL Hep Bs Antigen (NEGATIVE) Hep Bs Antibody (NEGATIVE) Hep B Core IgM Ab (NEGATIVE) 07/26/18 07/26/18 07/25/18 Range/Units 03:15 03:15 22:03 WBC 5.4 (4.5-11.0) 10^3/uL RBC 3.04 L (3.5-6.1) 10^6/uL Hgb 9.3 L (12.0-16.0) g/dL Hct 30.1 L (36.0-48.0) % MCV 99.0 (80.0-105.0) fl MCH 30.6 (25.0-35.0) pg MCHC 30.9 L (31.0-37.0) g/dl RDW 20.5 H (11.5-14.5) % Plt Count 81 L (120.0-450.0) 10^3/uL Manual Plt Count (120-450) K/mm3 MPV 10.0 (7.0-11.0) fl Neut % (Auto) 66.7 (50.0-68.0) % Lymph % (Auto) 19.9 L (22.0-35.0) % Morrow % (Auto) 11.5 H (1.0-6.0) % Eos % (Auto) 1.5 (1.5-5.0) % Baso % (Auto) 0.4 (0.0-3.0) % Lymph # (Auto) 1.1 L (1.2-3.4) Morrow # (Auto) 0.6 (0.1-0.6) Eos # (Auto) 0.1 (0.0-0.7) Baso # (Auto) 0.02 (0.0-2.0) K/mm3 Absolute Neuts (auto) 3.60 (1.4-6.5) Sodium 138 (132-148) mmol/L Potassium 3.3 L (3.6-5.0) mmol/L Chloride 99 (98-107) mmol/L Carbon Dioxide 29 (21-33) mmol/L Anion Gap 13 (10-20) BUN 20 (7-21) mg/dL Creatinine 4.7 H (0.7-1.2) mg/dl Est GFR ( Amer) 11 Est GFR (Non-Af Amer) 9 POC Glucose (mg/dL) 103 (65-110) mg/dL Random Glucose 138 H (70-110) mg/dL Calcium 9.0 (8.4-10.5) mg/dL Phosphorus 3.1 (2.5-4.5) mg/dL Magnesium 2.1 (1.7-2.2) mg/dL Total Bilirubin 1.4 H (0.2-1.3) mg/dL Direct Bilirubin 0.9 H (0.0-0.4) mg/dL AST 51 H (14-36) U/L ALT 19 (7-56) U/L Alkaline Phosphatase 124 (38-126) U/L Ammonia (9-33) umol/L Lactate Dehydrogenase 783 H (333-699) U/L Total Creatine Kinase 200 (35-230) U/L Troponin I 0.07 ng/mL Total Protein 7.4 (5.8-8.3) g/dL Albumin 3.7 (3.0-4.8) g/dL Globulin 3.8 gm/dL Albumin/Globulin Ratio 1.0 L (1.1-1.8) Triglycerides 108 (35-160) mg/dL Cholesterol 91 L (130-200) mg/dL LDL Cholesterol Direct 37 (0-129) mg/dL HDL Cholesterol 27 L (29-60) mg/dL Free T4 (0.78-2.19) ng/dL Thyroxine (T4) (5.5-11.0) ug/dL TSH 3rd Generation (0.46-4.68) mIU/mL Hep Bs Antigen (NEGATIVE) Hep Bs Antibody (NEGATIVE) Hep B Core IgM Ab (NEGATIVE) 07/25/18 07/25/18 07/25/18 Range/Units 19:38 18:27 14:00 WBC (4.5-11.0) 10^3/uL RBC (3.5-6.1) 10^6/uL Hgb (12.0-16.0) g/dL Hct (36.0-48.0) % MCV (80.0-105.0) fl MCH (25.0-35.0) pg MCHC (31.0-37.0) g/dl RDW (11.5-14.5) % Plt Count (120.0-450.0) 10^3/uL Manual Plt Count (120-450) K/mm3 MPV (7.0-11.0) fl Neut % (Auto) (50.0-68.0) % Lymph % (Auto) (22.0-35.0) % Morrow % (Auto) (1.0-6.0) % Eos % (Auto) (1.5-5.0) % Baso % (Auto) (0.0-3.0) % Lymph # (Auto) (1.2-3.4) Morrow # (Auto) (0.1-0.6) Eos # (Auto) (0.0-0.7) Baso # (Auto) (0.0-2.0) K/mm3 Absolute Neuts (auto) (1.4-6.5) Sodium (132-148) mmol/L Potassium (3.6-5.0) mmol/L Chloride (98-107) mmol/L Carbon Dioxide (21-33) mmol/L Anion Gap (10-20) BUN (7-21) mg/dL Creatinine (0.7-1.2) mg/dl Est GFR ( Amer) Est GFR (Non-Af Amer) POC Glucose (mg/dL) 85 (65-110) mg/dL Random Glucose (70-110) mg/dL Calcium (8.4-10.5) mg/dL Phosphorus (2.5-4.5) mg/dL Magnesium (1.7-2.2) mg/dL Total Bilirubin (0.2-1.3) mg/dL Direct Bilirubin (0.0-0.4) mg/dL AST (14-36) U/L ALT (7-56) U/L Alkaline Phosphatase (38-126) U/L Ammonia (9-33) umol/L Lactate Dehydrogenase 827 H (333-699) U/L Total Creatine Kinase 161 (35-230) U/L Troponin I 0.07 ng/mL Total Protein (5.8-8.3) g/dL Albumin (3.0-4.8) g/dL Globulin gm/dL Albumin/Globulin Ratio (1.1-1.8) Triglycerides (35-160) mg/dL Cholesterol (130-200) mg/dL LDL Cholesterol Direct (0-129) mg/dL HDL Cholesterol (29-60) mg/dL Free T4 (0.78-2.19) ng/dL Thyroxine (T4) (5.5-11.0) ug/dL TSH 3rd Generation (0.46-4.68) mIU/mL Hep Bs Antigen (NEGATIVE) Hep Bs Antibody Positive (NEGATIVE) Hep B Core IgM Ab (NEGATIVE) 07/25/18 Range/Units 14:00 WBC (4.5-11.0) 10^3/uL RBC (3.5-6.1) 10^6/uL Hgb (12.0-16.0) g/dL Hct (36.0-48.0) % MCV (80.0-105.0) fl MCH (25.0-35.0) pg MCHC (31.0-37.0) g/dl RDW (11.5-14.5) % Plt Count (120.0-450.0) 10^3/uL Manual Plt Count (120-450) K/mm3 MPV (7.0-11.0) fl Neut % (Auto) (50.0-68.0) % Lymph % (Auto) (22.0-35.0) % Morrow % (Auto) (1.0-6.0) % Eos % (Auto) (1.5-5.0) % Baso % (Auto) (0.0-3.0) % Lymph # (Auto) (1.2-3.4) Morrow # (Auto) (0.1-0.6) Eos # (Auto) (0.0-0.7) Baso # (Auto) (0.0-2.0) K/mm3 Absolute Neuts (auto) (1.4-6.5) Sodium (132-148) mmol/L Potassium (3.6-5.0) mmol/L Chloride (98-107) mmol/L Carbon Dioxide (21-33) mmol/L Anion Gap (10-20) BUN (7-21) mg/dL Creatinine (0.7-1.2) mg/dl Est GFR ( Amer) Est GFR (Non-Af Amer) POC Glucose (mg/dL) (65-110) mg/dL Random Glucose (70-110) mg/dL Calcium (8.4-10.5) mg/dL Phosphorus (2.5-4.5) mg/dL Magnesium (1.7-2.2) mg/dL Total Bilirubin (0.2-1.3) mg/dL Direct Bilirubin (0.0-0.4) mg/dL AST (14-36) U/L ALT (7-56) U/L Alkaline Phosphatase (38-126) U/L Ammonia (9-33) umol/L Lactate Dehydrogenase (333-699) U/L Total Creatine Kinase (35-230) U/L Troponin I ng/mL Total Protein (5.8-8.3) g/dL Albumin (3.0-4.8) g/dL Globulin gm/dL Albumin/Globulin Ratio (1.1-1.8) Triglycerides (35-160) mg/dL Cholesterol (130-200) mg/dL LDL Cholesterol Direct (0-129) mg/dL HDL Cholesterol (29-60) mg/dL Free T4 (0.78-2.19) ng/dL Thyroxine (T4) (5.5-11.0) ug/dL TSH 3rd Generation (0.46-4.68) mIU/mL Hep Bs Antigen Negative (NEGATIVE) Hep Bs Antibody (NEGATIVE) Hep B Core IgM Ab Negative (NEGATIVE) Laboratory Results - last 24 hr 07/25/18 07/25/18 07/25/18 14:00 14:00 18:27 WBC RBC Hgb Hct MCV MCH MCHC RDW Plt Count Manual Plt Count MPV Neut % (Auto) Lymph % (Auto) Morrow % (Auto) Eos % (Auto) Baso % (Auto) Lymph # (Auto) Morrow # (Auto) Eos # (Auto) Baso # (Auto) Absolute Neuts (auto) Sodium Potassium Chloride Carbon Dioxide Anion Gap BUN Creatinine Est GFR ( Amer) Est GFR (Non-Af Amer) POC Glucose (mg/dL) 85 Random Glucose Calcium Phosphorus Magnesium Total Bilirubin Direct Bilirubin AST ALT Alkaline Phosphatase Ammonia Lactate Dehydrogenase Total Creatine Kinase Troponin I Total Protein Albumin Globulin Albumin/Globulin Ratio Triglycerides Cholesterol LDL Cholesterol Direct HDL Cholesterol Free T4 Thyroxine (T4) TSH 3rd Generation Hep Bs Antigen Negative Hep Bs Antibody Positive Hep B Core IgM Ab Negative 07/25/18 07/25/18 07/26/18 19:38 22:03 03:15 WBC RBC Hgb Hct MCV MCH MCHC RDW Plt Count Manual Plt Count MPV Neut % (Auto) Lymph % (Auto) Morrow % (Auto) Eos % (Auto) Baso % (Auto) Lymph # (Auto) Morrow # (Auto) Eos # (Auto) Baso # (Auto) Absolute Neuts (auto) Sodium 138 Potassium 3.3 L Chloride 99 Carbon Dioxide 29 Anion Gap 13 BUN 20 Creatinine 4.7 H Est GFR ( Amer) 11 Est GFR (Non-Af Amer) 9 POC Glucose (mg/dL) 103 Random Glucose 138 H Calcium 9.0 Phosphorus 3.1 Magnesium 2.1 Total Bilirubin 1.4 H Direct Bilirubin 0.9 H AST 51 H ALT 19 Alkaline Phosphatase 124 Ammonia Lactate Dehydrogenase 827 H 783 H Total Creatine Kinase 161 200 Troponin I 0.07 0.07 Total Protein 7.4 Albumin 3.7 Globulin 3.8 Albumin/Globulin Ratio 1.0 L Triglycerides 108 Cholesterol 91 L LDL Cholesterol Direct 37 HDL Cholesterol 27 L Free T4 Thyroxine (T4) TSH 3rd Generation Hep Bs Antigen Hep Bs Antibody Hep B Core IgM Ab 07/26/18 07/26/18 07/26/18 03:15 03:15 03:15 WBC 5.4 RBC 3.04 L Hgb 9.3 L Hct 30.1 L MCV 99.0 MCH 30.6 MCHC 30.9 L RDW 20.5 H Plt Count 81 L Manual Plt Count MPV 10.0 Neut % (Auto) 66.7 Lymph % (Auto) 19.9 L Morrow % (Auto) 11.5 H Eos % (Auto) 1.5 Baso % (Auto) 0.4 Lymph # (Auto) 1.1 L Morrow # (Auto) 0.6 Eos # (Auto) 0.1 Baso # (Auto) 0.02 Absolute Neuts (auto) 3.60 Sodium Potassium Chloride Carbon Dioxide Anion Gap BUN Creatinine Est GFR ( Amer) Est GFR (Non-Af Amer) POC Glucose (mg/dL) Random Glucose Calcium Phosphorus Magnesium Total Bilirubin Direct Bilirubin AST ALT Alkaline Phosphatase Ammonia 46 H D Lactate Dehydrogenase Total Creatine Kinase Troponin I Total Protein Albumin Globulin Albumin/Globulin Ratio Triglycerides Cholesterol LDL Cholesterol Direct HDL Cholesterol Free T4 1.76 Thyroxine (T4) 9.3 TSH 3rd Generation 4.03 Hep Bs Antigen Hep Bs Antibody Hep B Core IgM Ab 07/26/18 07/26/18 07/26/18 07:28 09:20 11:23 WBC RBC Hgb Hct MCV MCH MCHC RDW Plt Count Manual Plt Count 90 L MPV Neut % (Auto) Lymph % (Auto) Morrow % (Auto) Eos % (Auto) Baso % (Auto) Lymph # (Auto) Morrow # (Auto) Eos # (Auto) Baso # (Auto) Absolute Neuts (auto) Sodium Potassium Chloride Carbon Dioxide Anion Gap BUN Creatinine Est GFR ( Amer) Est GFR (Non-Af Amer) POC Glucose (mg/dL) 94 176 H Random Glucose Calcium Phosphorus Magnesium Total Bilirubin Direct Bilirubin AST ALT Alkaline Phosphatase Ammonia Lactate Dehydrogenase Total Creatine Kinase Troponin I Total Protein Albumin Globulin Albumin/Globulin Ratio Triglycerides Cholesterol LDL Cholesterol Direct HDL Cholesterol Free T4 Thyroxine (T4) TSH 3rd Generation Hep Bs Antigen Hep Bs Antibody Hep B Core IgM Ab 07/26/18 15:57 WBC RBC Hgb Hct MCV MCH MCHC RDW Plt Count Manual Plt Count MPV Neut % (Auto) Lymph % (Auto) Morrow % (Auto) Eos % (Auto) Baso % (Auto) Lymph # (Auto) Morrow # (Auto) Eos # (Auto) Baso # (Auto) Absolute Neuts (auto) Sodium Potassium Chloride Carbon Dioxide Anion Gap BUN Creatinine Est GFR ( Amer) Est GFR (Non-Af Amer) POC Glucose (mg/dL) 225 H Random Glucose Calcium Phosphorus Magnesium Total Bilirubin Direct Bilirubin AST ALT Alkaline Phosphatase Ammonia Lactate Dehydrogenase Total Creatine Kinase Troponin I Total Protein Albumin Globulin Albumin/Globulin Ratio Triglycerides Cholesterol LDL Cholesterol Direct HDL Cholesterol Free T4 Thyroxine (T4) TSH 3rd Generation Hep Bs Antigen Hep Bs Antibody Hep B Core IgM Ab EKG/Cardiology Studies: Cardiology / EKG Studies 07/26/18 06:00 ELECTROCARDIOGRAM DAILY Comment: Reason For Exam: alcohol withdrawal 07/27/18 07:00 EKG [ELECTROCARDIOGRAM] DAILY Comment: Reason For Exam: ??AFIB 07/28/18 07:00 EKG [ELECTROCARDIOGRAM] DAILY Comment: Reason For Exam: ??AFIB Critical Care Progress Note - Nutrition Nutrition: Nutrition Category Date Time Status Renal Diet [DIET] Diets 07/26/18 Breakfast Ordered Attending/Attestation - Attestation I have personally seen and examined this patient.: Yes I have fully participated in the care of the patient.: Yes I have reviewed all pertinent clinical information: Yes Notes (Text): 07/26/18 18:[address] Hall note
[2018-07-26] MEDS: DiphenhydrAMINE 1% 1 EA TUBE TOP PRN (16:56)
--- NOTE | 2018-07-26 17:45 | CP.PCM.PN ---
<CharleyEvelyn - Last Filed: 07/26/18 17:50> Subjective - Date & Time of Evaluation Date of Evaluation: 07/26/18 Time of Evaluation: 17:44 - Subjective Subjective: Podiatry Consult Note: Dr. Holt 67 year old female patient, with PMHx of ESRD on HD, CAD s/p CABG, HTN, DMII, seen and evaluated for diabetic foot risk assessment. Patient denies any pain to b/l lower extremities at this time, however reports cramping pain to b/l legs at night. She states that her feet are very dry and uncomfortable. Denies nausea/vomiting/fever. PMHx: as above PSHx: CABG, Stent, L 4th, 5th digit amps SH: denies tobacco use, alcohol use, illicit drug use Objective - Vital Signs/Intake and Output Vital Signs (last 24 hours): Temp Pulse Resp BP Pulse Ox 97.9 F 77 17 144/90 98 07/26/18 16:00 07/26/18 17:19 07/26/18 17:19 07/26/18 17:01 07/26/18 06:42 Intake and Output: 07/26/18 07/26/18 06:59 18:59 Intake Total 550 Balance 550 - Medications Medications: Current Medications Acetaminophen (Tylenol 325mg Tab) 650 mg PO Q6 PRN PRN Reason: TEMP>=99.5F Last Admin: 07/26/18 12:30 Dose: 650 mg Acetaminophen (Tylenol 650 Mg Supp) 650 mg RC Q6H PRN PRN Reason: TEMP>=99.5F Albumin Human (Albumin Human 25% (12.5 Gm/50 Ml)) 25 gm IV TTS PRN PRN Reason: Other Aspirin (Aspirin Chewable) 81 mg PO DAILY [facility] Last Admin: 07/26/18 10:00 Dose: 81 mg Atorvastatin Calcium (Lipitor) 80 mg PO HS [facility] Last Admin: 07/25/18 21:01 Dose: 80 mg Cinacalcet (Sensipar) 30 mg PO DIN [facility] Last Admin: 07/26/18 17:12 Dose: 30 mg Darbepoetin Glenn (Aranesp) 60 mcg IVP QWK [facility] Last Admin: 07/25/18 15:30 Dose: 60 mcg Dextrose (Dextrose 50% Inj) 0 ml IV STAT PRN; Protocol PRN Reason: Hypoglycemia Protocol Diphenhydramine HCl (Benadryl Maximum Strength 1%) 1 ea TOP Q6H PRN PRN Reason: Itching / Pruritus Last Admin: 07/26/18 16:56 Dose: 1 applic Docusate Sodium (Colace) 100 mg PO BID [facility] Doxycycline Hyclate (Doryx) 100 mg PO Q12 [facility]IS[facility]; Protocol Dextrose (Dextrose 5% In Water 1000 Ml) 1,000 mls @ 0 mls/hr IV .Q0M PRN; Protocol PRN Reason: Hypoglycemia Protocol Meropenem 250 mg/ Sodium (Chloride) 100 mls @ 100 mls/hr IVPB Q12H [facility]ISSA; Protocol Stop: 07/26/18 20:31 Last Admin: 07/26/18 09:30 Dose: 100 mls/hr Thiamine HCl 100 mg/ Sodium (Chloride) 51 mls @ 153 mls/hr IV DAILY [facility] Insulin Human Lispro (Humalog Med) 0 units SC AC [facility]; Protocol Last Admin: 07/26/18 17:00 Dose: 3 u Insulin Human NPH (Humulin N) 10 units SC ACB [facility] Last Admin: 07/26/18 08:05 Dose: Not Given Insulin Human NPH (Humulin N) 10 units SC DAILY@1745 [facility] Last Admin: 07/26/18 16:55 Dose: 10 unit Levalbuterol HCl (Xopenex) 0.63 mg IH [id number] [facility] Last Admin: 07/26/18 13:12 Dose: 0.63 mg Levothyroxine Sodium (Synthroid) 50 mcg PO 0600 [facility] Last Admin: 07/26/18 06:41 Dose: 50 mcg Lidocaine (Lidoderm) 1 ea TD DAILY [facility] Metoprolol Tartrate (Lopressor) 25 mg PO BRKDIN [facility] Last Admin: 07/26/18 17:01 Dose: 25 mg Midodrine (Proamatine) 10 mg PO TID [facility] Last Admin: 07/26/18 17:02 Dose: 10 mg Ondansetron HCl (Zofran Inj) 4 mg IVP Q4H PRN PRN Reason: Nausea/Vomiting Pantoprazole Sodium (Protonix Ec Tab) 40 mg PO Q12 [facility] Rifaximin (Xifaxan) 550 mg PO BID [facility]; Protocol Last Admin: 07/26/18 09:59 Dose: 550 mg Sennosides (Senokot Tab) 17.2 mg PO HS [facility] Last Admin: 07/25/18 21:01 Dose: 17.2 mg Sevelamer HCl (Renagel) 800 mg PO TID [facility] Last Admin: 07/26/18 17:03 Dose: 800 mg Vitamin B Complex/Vit C/Folic Acid (Nephro-Jose Miguel) 1 tab PO DAILY [facility] Last Admin: 07/26/18 09:59 Dose: 1 tab - Labs Labs: 07/26/18 03:15 07/26/18 03:15 PT 14.6 SECONDS (9.4-12.5) H 07/25/18 09:40 INR 1.29 07/25/18 09:40 APTT 28.2 Seconds (26.9-38.3) 07/25/18 09:40 - Constitutional Appears: Non-toxic, No Acute Distress - Head Exam Head Exam: ATRAUMATIC, NORMOCEPHALIC - Extremities Exam Additional comments: Vasc: DP and PT pulses nonpalpable. CFT <3 seconds to digits. Temperature gradient cool to cool. +1 pitting edema present b/l. Ortho: No pain with palpation of b/l lower extremities, partial 4th and 5th ray amputations LLE. Neuro: Gross sensation diminished, protective sensation absent Derm: Significant xerosis appreciated to b/l feet. No open lesions at this time. No erythema, no xerois, no clinical signs of infection - Psychiatric Exam Psychiatric exam: Normal Affect, Normal Mood Assessment and Plan - Assessment and Plan (Free Text) Assessment: 67 year old female patient, with PMHx of ESRD on HD, CAD s/p CABG, HTN, DMII, seen and evaluated for diabetic foot risk assessment. Plan: Patient seen and evaluated Discussed patient with Dr. Holt WBC 5.4 NEETU/PVR ordered; pending Ammonium lactate ordered to b/l feet Educated patient on importance of checking feet daily for any signs of infection or ulceration Will continue to follow Thank you for the consult <Alex Holt - Last Filed: 07/27/18 09:36> Objective - Vital Signs/Intake and Output Vital Signs (last 24 hours): Temp Pulse Resp BP Pulse Ox 98 F 78 30 H 122/74 90 L 07/27/18 04:00 07/27/18 04:00 07/26/18 20:22 07/27/18 02:00 07/27/18 01:11 Intake and Output: 07/27/18 07/27/18 06:59 18:59 Intake Total 200 Output Total 50 Balance 150 - Medications Medications: Current Medications Acetaminophen (Tylenol 325mg Tab) 650 mg PO Q6 PRN PRN Reason: TEMP>=99.5F Last Admin: 07/26/18 12:30 Dose: 650 mg Acetaminophen (Tylenol 650 Mg Supp) 650 mg RC Q6H PRN PRN Reason: TEMP>=99.5F Albumin Human (Albumin Human 25% (12.5 Gm/50 Ml)) 25 gm IV TTS PRN PRN Reason: Other Aspirin (Aspirin Chewable) 81 mg PO DAILY [facility] Last Admin: 07/26/18 10:00 Dose: 81 mg Atorvastatin Calcium (Lipitor) 80 mg PO HS [facility] Last Admin: 07/26/18 22:19 Dose: 80 mg Cinacalcet (Sensipar) 30 mg PO DIN [facility] Last Admin: 07/26/18 17:12 Dose: 30 mg Darbepoetin Glenn (Aranesp) 60 mcg IVP QWK [facility] Last Admin: 07/25/18 15:30 Dose: 60 mcg Dextrose (Dextrose 50% Inj) 0 ml IV STAT PRN; Protocol PRN Reason: Hypoglycemia Protocol Diphenhydramine HCl (Benadryl Maximum Strength 1%) 1 ea TOP Q6H PRN PRN Reason: Itching / Pruritus Last Admin: 07/26/18 16:56 Dose: 1 applic Doxycycline Hyclate (Doryx) 100 mg PO Q12 [facility]; Protocol Last Admin: 07/26/18 22:17 Dose: 100 mg Dextrose (Dextrose 5% In Water 1000 Ml) 1,000 mls @ 0 mls/hr IV .Q0M PRN; Protocol PRN Reason: Hypoglycemia Protocol Thiamine HCl 100 mg/ Sodium (Chloride) 51 mls @ 153 mls/hr IV DAILY [facility] Insulin Human Lispro (Humalog Med) 0 units SC AC [facility]; Protocol Last Admin: 07/26/18 17:00 Dose: 3 u Insulin Human NPH (Humulin N) 10 units SC ACB [facility] Last Admin: 07/26/18 08:05 Dose: Not Given Insulin Human NPH (Humulin N) 10 units SC DAILY@1745 [facility] Last Admin: 07/26/18 16:55 Dose: 10 unit Lactic Acid (Lac-Hydrin 12% Cream (140 G)) 0 ea TOP DAILY [facility] Levalbuterol HCl (Xopenex) 0.63 mg IH [id number] [facility] Last Admin: 07/27/18 08:28 Dose: Not Given Levothyroxine Sodium (Synthroid) 50 mcg PO 0600 [facility] Last Admin: 07/27/18 05:19 Dose: 50 mcg Lidocaine (Lidoderm) 1 ea TD DAILY [facility] Last Admin: 07/26/18 23:24 Dose: 1 ea Metoprolol Tartrate (Lopressor) 25 mg PO BRKDIN [facility] Last Admin: 07/26/18 17:01 Dose: 25 mg Midodrine (Proamatine) 10 mg PO TID [facility] Last Admin: 07/26/18 17:02 Dose: 10 mg Ondansetron HCl (Zofran Inj) 4 mg IVP Q4H PRN PRN Reason: Nausea/Vomiting Pantoprazole Sodium (Protonix Ec Tab) 40 mg PO Q12 [facility] Last Admin: 07/26/18 22:20 Dose: 40 mg Rifaximin (Xifaxan) 550 mg PO BID [facility]; Protocol Last Admin: 07/26/18 09:59 Dose: 550 mg Sennosides (Senokot Tab) 17.2 mg PO HS [facility] Last Admin: 07/26/18 23:09 Dose: Not Given Sevelamer HCl (Renagel) 800 mg PO TID [facility] Last Admin: 07/26/18 17:03 Dose: 800 mg Vitamin B Complex/Vit C/Folic Acid (Nephro-Jose Miguel) 1 tab PO DAILY [facility] Last Admin: 07/26/18 09:59 Dose: 1 tab - Labs Labs: 07/27/18 05:30 07/27/18 05:30 PT 14.6 SECONDS (9.4-12.5) H 07/25/18 09:40 INR 1.29 07/25/18 09:40 APTT 28.2 Seconds (26.9-38.3) 07/25/18 09:40 Attending/Attestation - Attestation I have personally seen and examined this patient.: Yes I have fully participated in the care of the patient.: Yes I have reviewed all pertinent clinical information, including history, physical exam and plan: Yes
--- NOTE | 2018-07-26 20:17 | CP.PCM.PN ---
<William Berger Bharathi - Last Filed: 07/26/18 20:11> Subjective - Date & Time of Evaluation Date of Evaluation: 07/26/18 Time of Evaluation: 07:00 - Subjective Subjective: Medicine progress note (Dr. Simeon) - Celine, PGY - 2 Patient seen and examined at bedside. AIR MARSHAL not performed yesterday due to mental status; 2.5 L net fluid removal off via rt upper arm AVF. Pt progressively more awake and alert during treatment. Plan for next HD . Patient's acute complaint is that she is uncertain as to why she is taking so many medications. Objective - Vital Signs/Intake and Output Vital Signs (last 24 hours): Temp Pulse Resp BP Pulse Ox 97.9 F 77 17 144/90 98 07/26/18 16:00 07/26/18 17:19 07/26/18 17:19 07/26/18 17:01 07/26/18 06:42 - Medications Medications: Current Medications Acetaminophen (Tylenol 325mg Tab) 650 mg PO Q6 PRN PRN Reason: TEMP>=99.5F Last Admin: 07/26/18 12:30 Dose: 650 mg Acetaminophen (Tylenol 650 Mg Supp) 650 mg RC Q6H PRN PRN Reason: TEMP>=99.5F Albumin Human (Albumin Human 25% (12.5 Gm/50 Ml)) 25 gm IV TTS PRN PRN Reason: Other Aspirin (Aspirin Chewable) 81 mg PO DAILY [facility] Last Admin: 07/26/18 10:00 Dose: 81 mg Atorvastatin Calcium (Lipitor) 80 mg PO HS [facility] Last Admin: 07/25/18 21:01 Dose: 80 mg Cinacalcet (Sensipar) 30 mg PO DIN [facility] Last Admin: 07/26/18 17:12 Dose: 30 mg Darbepoetin Glenn (Aranesp) 60 mcg IVP QWK [facility] Last Admin: 07/25/18 15:30 Dose: 60 mcg Dextrose (Dextrose 50% Inj) 0 ml IV STAT PRN; Protocol PRN Reason: Hypoglycemia Protocol Diphenhydramine HCl (Benadryl Maximum Strength 1%) 1 ea TOP Q6H PRN PRN Reason: Itching / Pruritus Last Admin: 07/26/18 16:56 Dose: 1 applic Docusate Sodium (Colace) 100 mg PO BID [facility] Doxycycline Hyclate (Doryx) 100 mg PO Q12 [facility]; Protocol Dextrose (Dextrose 5% In Water 1000 Ml) 1,000 mls @ 0 mls/hr IV .Q0M PRN; Protocol PRN Reason: Hypoglycemia Protocol Meropenem 250 mg/ Sodium (Chloride) 100 mls @ 100 mls/hr IVPB Q12H [facility]; Protocol Stop: 07/26/18 20:31 Last Admin: 07/26/18 09:30 Dose: 100 mls/hr Thiamine HCl 100 mg/ Sodium (Chloride) 51 mls @ 153 mls/hr IV DAILY [facility] Insulin Human Lispro (Humalog Med) 0 units SC AC [facility]; Protocol Last Admin: 07/26/18 17:00 Dose: 3 u Insulin Human NPH (Humulin N) 10 units SC ACB [facility] Last Admin: 07/26/18 08:05 Dose: Not Given Insulin Human NPH (Humulin N) 10 units SC DAILY@1745 [facility] Last Admin: 07/26/18 16:55 Dose: 10 unit Lactic Acid (Lac-Hydrin 12% Cream (140 G)) 0 ea TOP DAILY [facility] Levalbuterol HCl (Xopenex) 0.63 mg IH [id number] [facility] Last Admin: 07/26/18 13:12 Dose: 0.63 mg Levothyroxine Sodium (Synthroid) 50 mcg PO 0600 [facility] Last Admin: 07/26/18 06:41 Dose: 50 mcg Lidocaine (Lidoderm) 1 ea TD DAILY [facility] Metoprolol Tartrate (Lopressor) 25 mg PO BRKDIN [facility] Last Admin: 07/26/18 17:01 Dose: 25 mg Midodrine (Proamatine) 10 mg PO TID [facility] Last Admin: 07/26/18 17:02 Dose: 10 mg Ondansetron HCl (Zofran Inj) 4 mg IVP Q4H PRN PRN Reason: Nausea/Vomiting Pantoprazole Sodium (Protonix Ec Tab) 40 mg PO Q12 [facility] Rifaximin (Xifaxan) 550 mg PO BID [facility]; Protocol Last Admin: 07/26/18 09:59 Dose: 550 mg Sennosides (Senokot Tab) 17.2 mg PO HS [facility] Last Admin: 07/25/18 21:01 Dose: 17.2 mg Sevelamer HCl (Renagel) 800 mg PO TID [facility] Last Admin: 07/26/18 17:03 Dose: 800 mg Vitamin B Complex/Vit C/Folic Acid (Nephro-Jose Miguel) 1 tab PO DAILY [facility] Last Admin: 07/26/18 09:59 Dose: 1 tab - Labs Labs: 07/26/18 03:15 07/26/18 03:15 PT 14.6 SECONDS (9.4-12.5) H 07/25/18 09:40 INR 1.29 07/25/18 09:40 APTT 28.2 Seconds (26.9-38.3) 07/25/18 09:40 - Constitutional Appears: Well - Head Exam Head Exam: ATRAUMATIC, NORMAL INSPECTION, NORMOCEPHALIC - Eye Exam Eye Exam: EOMI, Normal appearance, PERRL Pupil Exam: NORMAL ACCOMODATION, PERRL - ENT Exam ENT Exam: Mucous Membranes Moist, Normal Exam - Neck Exam Neck Exam: Full ROM, Normal Inspection. absent: Lymphadenopathy - Respiratory Exam Respiratory Exam: Clear to Ausculation Bilateral, NORMAL BREATHING PATTERN - Cardiovascular Exam Cardiovascular Exam: REGULAR RHYTHM, +S1, +S2. absent: Murmur - GI/Abdominal Exam GI & Abdominal Exam: Soft, Normal Bowel Sounds. absent: Tenderness - Extremities Exam Extremities Exam: Full ROM, Normal Capillary Refill, Normal Inspection. absent: Joint Swelling, Pedal Edema - Back Exam Back Exam: NORMAL INSPECTION - Neurological Exam Neurological Exam: Alert, Awake, CN II-XII Intact, Normal Gait, Oriented x3 - Psychiatric Exam Psychiatric exam: Normal Affect, Normal Mood - Skin Skin Exam: Dry, Intact, Normal Color, Warm Assessment and Plan - Assessment and Plan (Free Text) Assessment: Patient is a 67 F with a past medical history of CAD s/p CABG and 5 stents, ESRD on HD (Tuesday, , Tuesday), hypertension, hypothyroidism, diabetes mellitus presenting with altered mental status. Unable to obtain history of when her last dialysis session was. Electrolytes are normal, but patient has a severe respiratory alkalosis with lactic acid. Chest XR reveals pulmonary vascular congestion. Recent ECHO from May 2018 shows severe TR but normal EF. RVSP was 19, but read as underestimation. Plan AMS, possibly 2/2 infection VS respiratory alkalosis VS lactic acidosis VS hepatic encephalopathy Etiology unclear at this point, as Head CT negative and no apparent electrolyte abnormalities aside from hypermagnesemia. Random glucose was normal. BUN was not severely elevated. However, Ammonia was elevated @ 125. Today, s/p lactulose and Rifaximin, patient's ammonia has come to 45. Per ID: no apparent sign of infxn, will give doxy, merrem, vanc, and acyclovir. Per Neuro: Xifaxan 550 BID, rpt ammonia daily; thiamine 100 daily; per GI - agree with above, adding HCV test. - Aspiration, Seizure, Fall precautions; Neurochecks; HOB 45 degrees - Continue Merrem, Vanc, Doxy - Lactulose MO and Rifaximin BID - NPO diet - GI Consultation: Dr. Terry - ID Consultation: Dr. Whitt - Nephro Consultation: Dr. Malone - Neuro consulation: Dr. Dorman - Cardiology consultation: Dr. Berman - ICU Consultation: Dr. Alford ESRD - Nephrology consulted - Replete electrolytes as needed - Continue with renagel, cinacalcet Anemia of CKD Hgb below goal in CKD at 9.7 (goal of 10-11) - Dose aranesp per nephro CKD Mineral Disorder - Continue with phoslo Coronary Artery Disease - Cardiology consulted; continue home meds Hypothyroidism - Continue home meds Hyperlipidemia - Continue home meds DM -ISS-low with fingerstick ACHS <Jimy Simeon U - Last Filed: 07/31/18 10:38> Objective - Vital Signs/Intake and Output Vital Signs (last 24 hours): Temp Pulse Resp BP Pulse Ox 97.2 F L 77 20 104/55 L 95 07/30/18 18:00 07/31/18 09:02 07/30/18 18:00 07/31/18 09:02 07/30/18 18:00 Intake and Output: 07/31/18 07/31/18 06:59 18:59 Intake Total 180 Output Total 1 Balance 179 - Medications Medications: Current Medications Acetaminophen (Tylenol 325mg Tab) 650 mg PO Q6 PRN PRN Reason: TEMP>=99.5F Last Admin: 07/30/18 01:16 Dose: 650 mg Acetaminophen (Tylenol 650 Mg Supp) 650 mg RC Q6H PRN PRN Reason: TEMP>=99.5F Albumin Human (Albumin Human 25% (12.5 Gm/50 Ml)) 25 gm IV TTS PRN PRN Reason: Other Aspirin (Aspirin Chewable) 81 mg PO DAILY [facility] Last Admin: 07/31/18 10:26 Dose: 81 mg Atorvastatin Calcium (Lipitor) 80 mg PO HS [facility] Last Admin: 07/30/18 21:31 Dose: 80 mg Cinacalcet (Sensipar) 30 mg PO DIN [facility] Last Admin: 07/30/18 18:48 Dose: 30 mg Darbepoetin Glenn (Aranesp) 60 mcg IVP QWK [facility] Last Admin: 07/25/18 15:30 Dose: 60 mcg Dextrose (Dextrose 50% Inj) 0 ml IV STAT PRN; Protocol PRN Reason: Hypoglycemia Protocol Diphenhydramine HCl (Benadryl Maximum Strength 1%) 1 ea TOP Q6H PRN PRN Reason: Itching / Pruritus Last Admin: 07/30/18 11:20 Dose: 1 applic Dextrose (Dextrose 5% In Water 1000 Ml) 1,000 mls @ 0 mls/hr IV .Q0M PRN; Protocol PRN Reason: Hypoglycemia Protocol Thiamine HCl 100 mg/ Sodium (Chloride) 51 mls @ 153 mls/hr IV DAILY [facility] Last Admin: 07/31/18 10:28 Dose: 153 mls/hr Insulin Human Lispro (Humalog Med) 0 units SC AC [facility]; Protocol Last Admin: 07/31/18 08:50 Dose: 1 u Insulin Human NPH (Humulin N) 10 units SC ACB [facility] Last Admin: 07/31/18 08:49 Dose: 10 units Insulin Human NPH (Humulin N) 10 units SC DAILY@1745 [facility] Last Admin: 07/30/18 17:26 Dose: Not Given Lactic Acid (Lac-Hydrin 12% Cream (140 G)) 0 ea TOP DAILY [facility] Last Admin: 07/31/18 10:26 Dose: 1 applic Lactulose (Enulose) 20 gm PO BID [facility] Last Admin: 07/31/18 10:26 Dose: 20 gm Levalbuterol HCl (Xopenex) 0.63 mg IH [id number] [facility] Last Admin: 07/31/18 08:02 Dose: 0.63 mg Levothyroxine Sodium (Synthroid) 50 mcg PO 0600 [facility] Last Admin: 07/31/18 05:25 Dose: 50 mcg Lidocaine (Lidoderm) 1 ea TD DAILY [facility] Last Admin: 07/31/18 10:27 Dose: 1 ea Lidocaine (Lidoderm) 1 ea TD DAILY [facility] Last Admin: 07/31/18 10:27 Dose: 1 ea Metoprolol Tartrate (Lopressor) 25 mg PO BRKDIN [facility] Last Admin: 07/31/18 09:02 Dose: Not Given Midodrine (Proamatine) 10 mg PO TID [facility] Last Admin: 07/31/18 10:27 Dose: 10 mg Mupirocin (Bactroban Ointment) 0 gm TOP BID [facility] Last Admin: 07/31/18 10:26 Dose: 1 applic Ondansetron HCl (Zofran Inj) 4 mg IVP Q4H PRN PRN Reason: Nausea/Vomiting Pantoprazole Sodium (Protonix Ec Tab) 40 mg PO Q12 [facility] Last Admin: 07/31/18 10:28 Dose: 40 mg Quetiapine Fumarate (Seroquel) 12.5 mg PO HS PRN; Protocol PRN Reason: Agitation Last Admin: 07/30/18 21:31 Dose: 12.5 mg Sennosides (Senokot Tab) 17.2 mg PO HS [facility] Last Admin: 07/30/18 21:32 Dose: Not Given Sevelamer HCl (Renagel) 800 mg PO TID [facility] Last Admin: 07/31/18 10:28 Dose: 800 mg Tramadol HCl (Ultram) 50 mg PO Q12H PRN PRN Reason: Pain, moderate (4-7) Last Admin: 07/31/18 10:04 Dose: 50 mg Vitamin B Complex/Vit C/Folic Acid (Nephro-Jose Miguel) 1 tab PO DAILY [facility] Last Admin: 07/31/18 10:27 Dose: 1 tab - Labs Labs: 07/30/18 11:20 07/30/18 11:20 PT 14.6 SECONDS (9.4-12.5) H 07/25/18 09:40 INR 1.29 07/25/18 09:40 APTT 28.2 Seconds (26.9-38.3) 07/25/18 09:40 Attending/Attestation - Attestation I have personally seen and examined this patient.: Yes I have fully participated in the care of the patient.: Yes I have reviewed all pertinent clinical information, including history, physical exam and plan: Yes Notes (Text): Please see/read my dictated notes.
[2018-07-26] MEDS: Pantoprazole 40 mg EC Tab PO SCH (22:20)
[2018-07-26] MEDS: Lidocaine 5% Patch TD SCH (23:24)
[2018-07-27] MEDS: Levalbuterol 0.63 MG/3 ML Inhal Soln UD IH SCH ×4 (01:45→19:36)
[2018-07-27] MEDS: Levothyroxine 50 MCG TAB PO SCH (05:19)
[2018-07-27 06:46] LABS: BASO # 0.04 K/mm3 (0.0-2.0); BASO % 0.7 % (0.0-3.0); EOS # 0.1 (0.0-0.7); EOS % 1.9 % (1.5-5.0); HEMOGLOBIN 9.7 g/dL (12.0-16.0); LYMPH # 0.9 (1.2-3.4); LYMPH % 16.1 % (22.0-35.0); MEAN CELL VOLUME 97.5 fl (80.0-105.0); MEAN CORPUSCULAR HGB CONC 30.8 g/dl (31.0-37.0); MEAN PLATELET VOLUME 11.2 fl (7.0-11.0); MONO # 1.2 (0.1-0.6); MONO % 21.9 % (1.0-6.0); PLATELET COUNT 117 10^3/uL (120.0-450.0); RBC 3.23 10^6/uL (3.5-6.1); RED CELL DISTRIBUTION WIDTH 20.4 % (11.5-14.5); WHITE BLOOD COUNT 5.4 10^3/uL (4.5-11.0)
[2018-07-27 07:12] LABS: ALBUMIN 4.1 g/dL (3.0-4.8); CALCIUM 9.3 mg/dL (8.4-10.5)
[2018-07-27 07:55] LABS: LYMPHOCYTE 19 % (22.0-35.0); MONOCYTE 19 % (1.0-6.0); NEUTROPHIL 62 % (50.0-70.0)
[2018-07-27 07:56] LABS: ANISOCYTOSIS 1+; PLATELET ESTIMATE LOW (NORMAL)
[2018-07-27 08:18] LABS: PLATELET COUNT MANUAL 150 K/mm3 (120-450)
--- NOTE | 2018-07-27 09:17 | PN ---
DATE: 07/26/2018 LOCATION: The patient is in ICU bed six. SUBJECTIVE: Overnight events were noted. The patient continued to be lethargic, received lactulose retention enema because of elevated ammonia level. The patient was seen by Neurology. The patient seen by Gastroenterology. The patient was seen by Nephrology. The patient underwent dialysis, which she tolerated well. OBJECTIVE: VITAL SIGNS: T-max 97.7, blood pressure 102/51 and 125/55, respirations 15-18, and O2 sat 97%-98%. HEAD: Normocephalic, atraumatic. HEENT: Shows pinkish pale conjunctivae. Anicteric sclerae. No oropharyngeal lesion. NECK: No neck rigidity. CHEST: Kyphosis. Positive left upper chest AICD noted. Decreased breath sounds noted at the bases. CARDIOVASCULAR: S1 and S2. Irregular rhythm. Positive systolic murmur at left sternal border, right second intercostal space, left second intercostal space. ABDOMEN: Soft, protuberant. Positive bowel sounds. GENITALIA: Female. RECTAL: Deferred. EXTREMITIES: Positive upper extremity AV graft noted. Positive thrill. Trace swelling of the lower extremity. MUSCULOSKELETAL: As per the BMI. NEUROLOGICAL: The patient is still somewhat lethargic, but responsive. Does not appear to be back to baseline. The patient is responsive to painful and verbal stimuli. GAIT: Not tested. The patient is lying in the bed. DIAGNOSTIC DATA: 07/26/2018, WBC 5.4, hemoglobin and hematocrit 9.3 and 30.1, and platelets 81,000. Chemistry; abnormal chemistry, potassium 3.3, creatinine 4.7, ammonia level is down to 46 from 125. Elevated AST and ALT noted. Troponin peak is 0.07. CAT scan of the head shows right caudate old lacunar infarct, microvascular ischemic disease of the brain, ethmoid and maxillary sinus mucosal thickening. EKG shows atrial fibrillation, left axis deviation, right bundle-branch block and inferolateral ischemia. IMPRESSION AND PLAN: 1. Acute decompensated mental status with acute encephalopathy and confusional state and lethargy. 2. Anemia. 3. Thrombocytopenia. 4. End-stage renal disease, hemodialysis dependent three times a week. 5. Hypokalemia. 6. Severe transaminitis with history of cirrhosis. 7. Hyperammonemia. 8. Indeterminate troponin. 9. 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 10. Microvascular ischemic disease of the brain. 11. Ethmoid and maxillary sinus mucosal thickening. 12. Questionable new onset atrial fibrillation. 13. Left axis deviation. 14. Right bundle-branch block. 15. Inferolateral ischemia. 16. Altered mental status. 17. Lactic acidosis. 18. Respiratory alkalosis. 19. Hepatic encephalopathy and toxic metabolic encephalopathy with underlying hepatic cirrhosis. 20. Hypertensive diabetic chronic kidney disease. 21. Secondary hyperparathyroidism. 22. [id number] mitral regurgitation. 23. Right ventricular dilatation. 24. Status post automatic implantable cardioverter defibrillator implant. 25. Morbid obesity. PLAN: At this time, the patient is to be monitored in ICU until further stabilization. Current consultation; Cardiology, Nephrology, Neurology, and Podiatry. The patient at present is also being seen by Gastroenterology. The patient will be continued on the therapeutic intervention as per the MAR of today. Serial labs ordered. Prognosis is guarded to poor because of the patient's underlying multiple comorbidity and decompensated state. The patient's further management will be dependent upon the patient's clinical condition, hemodynamic status and as per the patient's response to therapeutic intervention, as per the patient's diagnostic test results and as per recommendation by all the physicians involved in the care of the patient. Dictated and electronically signed, not read. Jimy Simeon MD MTDD
--- NOTE | 2018-07-27 11:11 | CARD ---
APPROVED REPORT Date of service: 07/27/2018 EKG Measurement Heart [id number] <Conclusion> Baseline artifact Atrial fibrillation Right bundle branch block Left anterior fascicular block Bifascicular block T wave abnormality, consider inferolateral ischemia Abnormal ECG
--- NOTE | 2018-07-27 11:50 | PN ---
DATE: 07/27/2018 SUBJECTIVE: The patient is lying in bed. She is complaining of back pain. She is awake and alert. She denies any abdominal pain, nausea or vomiting. PHYSICAL EXAMINATION: VITAL SIGNS: Reveal temperature of 98, blood pressure 122/74, heart rate of 78. HEENT: Reveal sclerae to be white. Conjunctivae pale. NECK: Supple. CHEST: Reveal distant breath sounds. HEART: Exam reveals regular rate and rhythm. ABDOMEN: Obese, soft, nontender. EXTREMITIES: No edema. LABORATORY DATA: White blood cell count 5.4, hemoglobin 9.7. Chemistries reveal AST 64, ALT 21, alkaline phosphatase of 149, BUN 27, creatinine 6. Serum ammonia level was 34. IMPRESSION: This is a 67-year-old female admitted to the hospital with altered mental status, found to have an elevated ammonia level. She has CT evidence of cirrhosis, etiology unclear. Her hepatitis C antibody is positive. RECOMMENDATIONS: 1. Continue PPI. Chronulac 20 g twice a day and Xifaxan 550 mg twice a day. 2. Await hepatitis C RNA quantitative and genotype. Angelito Terry MD
--- NOTE | 2018-07-27 12:02 | CP.PCM.CON ---
History of Present Illness - History of Present Illness History of Present Illness: 67 F admited to ICU with change in mental status. She has ESRD on HD (Tuesday, , Tuesday), s/p CABG and 5 stents. Noted to have mild elevation of AST/ALT and thrombocytopenia. Dr Terry on consult. Patient's amonia level mildly elevated, now on lactulose/xifaxan. No history of GI, or prior encephalopathy Review of Systems - Constitutional Constitutional: As Per HPI - EENT Eyes: As Per HPI Nose/Mouth/Throat: As Per HPI - Breasts Breasts: As Per HPI - Cardiovascular Cardiovascular: As Per HPI - Respiratory Respiratory: As Per HPI - Gastrointestinal Gastrointestinal: As Per HPI - Genitourinary Genitourinary: As Per HPI - Musculoskeletal Musculoskeletal: As Per HPI - Integumentary Integumentary: As Per HPI - Neurological Neurological: As Per HPI Past Patient History - Infectious Disease Hx of Infectious Diseases: None - Past Social History Smoking Status: Former Smoker - CARDIAC Hx Cardiac Disorders: Yes Hx Hypertension: Yes - PULMONARY Hx Respiratory Disorders: No - NEUROLOGICAL Hx Neurological Disorder: No - HEENT Hx HEENT Problems: No - RENAL Hx Renal Failure: Yes (on dialysis) - ENDOCRINE/METABOLIC Hx Hypothyroidism: Yes - HEMATOLOGICAL/ONCOLOGICAL Hx Blood Disorders: No - INTEGUMENTARY Hx Dermatological Problems: No - MUSCULOSKELETAL/RHEUMATOLOGICAL Hx Musculoskeletal Disorders: Yes Hx Back Pain: Yes Hx Falls: Yes Hx Unsteady Gait: Yes (walker) - GASTROINTESTINAL Hx Gastrointestinal Disorders: No - GENITOURINARY/GYNECOLOGICAL Hx Genitourinary Disorders: No - PSYCHIATRIC Hx Psychophysiologic Disorder: No Hx Substance Use: No - SURGICAL HISTORY Hx Coronary Stent: Yes (5) Other/Comment: right av shunt placement. tonsillectomy - ANESTHESIA Hx Anesthesia: Yes Hx Anesthesia Reactions: No Hx Malignant Hyperthermia: No Meds Allergies/Adverse Reactions: Allergies Allergy/AdvReac Type Severity Reaction Status Date / Time amitriptyline Allergy RASH Verified 07/25/18 14:26 Iodinated Contrast- Oral and Allergy RASH Verified 07/25/18 14:26 IV Dye Penicillins Allergy RASH Verified 07/25/18 14:26 shellfish derived Allergy RASH Verified 07/25/18 14:26 - Medications Medications: Current Medications Acetaminophen (Tylenol 325mg Tab) 650 mg PO Q6 PRN PRN Reason: TEMP>=99.5F Last Admin: 07/26/18 12:30 Dose: 650 mg Acetaminophen (Tylenol 650 Mg Supp) 650 mg RC Q6H PRN PRN Reason: TEMP>=99.5F Albumin Human (Albumin Human 25% (12.5 Gm/50 Ml)) 25 gm IV TTS PRN PRN Reason: Other Aspirin (Aspirin Chewable) 81 mg PO DAILY [facility] Last Admin: 07/26/18 10:00 Dose: 81 mg Atorvastatin Calcium (Lipitor) 80 mg PO HS [facility] Last Admin: 07/26/18 22:19 Dose: 80 mg Cinacalcet (Sensipar) 30 mg PO DIN [facility] Last Admin: 07/26/18 17:12 Dose: 30 mg Darbepoetin Glenn (Aranesp) 60 mcg IVP QWK [facility] Last Admin: 07/25/18 15:30 Dose: 60 mcg Dextrose (Dextrose 50% Inj) 0 ml IV STAT PRN; Protocol PRN Reason: Hypoglycemia Protocol Diphenhydramine HCl (Benadryl Maximum Strength 1%) 1 ea TOP Q6H PRN PRN Reason: Itching / Pruritus Last Admin: 07/26/18 16:56 Dose: 1 applic Doxycycline Hyclate (Doryx) 100 mg PO Q12 [facility]; Protocol Last Admin: 07/26/18 22:17 Dose: 100 mg Dextrose (Dextrose 5% In Water 1000 Ml) 1,000 mls @ 0 mls/hr IV .Q0M PRN; Protocol PRN Reason: Hypoglycemia Protocol Thiamine HCl 100 mg/ Sodium (Chloride) 51 mls @ 153 mls/hr IV DAILY [facility] Insulin Human Lispro (Humalog Med) 0 units SC AC [facility]; Protocol Last Admin: 07/26/18 17:00 Dose: 3 u Insulin Human NPH (Humulin N) 10 units SC ACB [facility] Last Admin: 07/26/18 08:05 Dose: Not Given Insulin Human NPH (Humulin N) 10 units SC DAILY@1745 [facility] Last Admin: 07/26/18 16:55 Dose: 10 unit Lactic Acid (Lac-Hydrin 12% Cream (140 G)) 0 ea TOP DAILY [facility] Levalbuterol HCl (Xopenex) 0.63 mg IH [id number] [facility] Last Admin: 07/27/18 08:28 Dose: Not Given Levothyroxine Sodium (Synthroid) 50 mcg PO 0600 [facility] Last Admin: 07/27/18 05:19 Dose: 50 mcg Lidocaine (Lidoderm) 1 ea TD DAILY [facility] Last Admin: 07/26/18 23:24 Dose: 1 ea Metoprolol Tartrate (Lopressor) 25 mg PO BRKDIN [facility] Last Admin: 07/26/18 17:01 Dose: 25 mg Midodrine (Proamatine) 10 mg PO TID [facility] Last Admin: 07/26/18 17:02 Dose: 10 mg Ondansetron HCl (Zofran Inj) 4 mg IVP Q4H PRN PRN Reason: Nausea/Vomiting Pantoprazole Sodium (Protonix Ec Tab) 40 mg PO Q12 [facility] Last Admin: 07/26/18 22:20 Dose: 40 mg Rifaximin (Xifaxan) 550 mg PO BID [facility]; Protocol Last Admin: 07/26/18 09:59 Dose: 550 mg Sennosides (Senokot Tab) 17.2 mg PO HS [facility] Last Admin: 07/26/18 23:09 Dose: Not Given Sevelamer HCl (Renagel) 800 mg PO TID [facility] Last Admin: 07/26/18 17:03 Dose: 800 mg Vitamin B Complex/Vit C/Folic Acid (Nephro-Jose Miguel) 1 tab PO DAILY [facility] Last Admin: 07/26/18 09:59 Dose: 1 tab Physical Exam - Constitutional Appears: Unkempt, Older Than Stated Age, Chronically Ill - Head Exam Head Exam: NORMAL INSPECTION - ENT Exam ENT Exam: Mucous Membranes Dry - Respiratory Exam Respiratory Exam: Clear to Auscultation Bilateral - GI/Abdominal Exam GI & Abdominal Exam: Normal Bowel Sounds, Soft. absent: Tenderness - Rectal Exam Rectal Exam: Deferred - Neurological Exam Neurological exam: Alert, Altered Additional comments: somewaht confused, minimal encephalopathy Results - Vital Signs Recent Vital Signs: Last Vital Signs Temp 98 F 07/27/18 04:00 Pulse 78 07/27/18 04:00 Resp 30 H 07/26/18 20:22 BP 122/74 07/27/18 02:00 Pulse Ox 90 L 07/27/18 01:11 - Labs Result Diagrams: 07/27/18 05:30 07/27/18 05:30 Labs: Laboratory Results - last 24 hr 07/26/18 07/26/18 07/26/18 03:15 11:23 15:57 WBC RBC Hgb Hct MCV MCH MCHC RDW Plt Count Manual Plt Count MPV Neut % (Auto) Lymph % (Auto) Kern % (Auto) Eos % (Auto) Baso % (Auto) Lymph # (Auto) Kern # (Auto) Eos # (Auto) Baso # (Auto) Absolute Neuts (auto) Neutrophils % (Manual) Lymphocytes % (Manual) Monocytes % (Manual) Platelet Evaluation Anisocytosis (manual) Sodium Potassium Chloride Carbon Dioxide Anion Gap BUN Creatinine Est GFR ( Amer) Est GFR (Non-Af Amer) POC Glucose (mg/dL) 176 H 225 H Random Glucose Calcium Phosphorus Magnesium Total Bilirubin Direct Bilirubin AST ALT Alkaline Phosphatase Ammonia Total Protein Albumin Globulin Albumin/Globulin Ratio Hepatitis C Antibody Reactive H Hep C Ab Signal/Cutoff 21.5 H 07/26/18 07/27/18 07/27/18 21:51 05:30 05:30 WBC 5.4 RBC 3.23 L Hgb 9.7 L Hct 31.5 L MCV 97.5 MCH 30.0 MCHC 30.8 L RDW 20.4 H Plt Count 117 L Manual Plt Count 150 MPV 11.2 H Neut % (Auto) 59.4 Lymph % (Auto) 16.1 L Kern % (Auto) 21.9 H Eos % (Auto) 1.9 Baso % (Auto) 0.7 Lymph # (Auto) 0.9 L Kern # (Auto) 1.2 H Eos # (Auto) 0.1 Baso # (Auto) 0.04 Absolute Neuts (auto) 3.18 Neutrophils % (Manual) 62 Lymphocytes % (Manual) 19 L Monocytes % (Manual) 19 H Platelet Evaluation Low Anisocytosis (manual) 1+ Sodium 142 Potassium 3.7 Chloride 103 Carbon Dioxide 24 Anion Gap 19 BUN 27 H Creatinine 6.0 H Est GFR ( Amer) 8 Est GFR (Non-Af Amer) 7 POC Glucose (mg/dL) 184 H Random Glucose 153 H Calcium 9.3 Phosphorus 3.6 Magnesium 2.3 H Total Bilirubin 1.1 Direct Bilirubin 1.0 H AST 64 H D ALT 21 Alkaline Phosphatase 149 H D Ammonia Total Protein 8.0 Albumin 4.1 Globulin 4.0 Albumin/Globulin Ratio 1.0 L Hepatitis C Antibody Hep C Ab Signal/Cutoff 07/27/18 05:30 WBC RBC Hgb Hct MCV MCH MCHC RDW Plt Count Manual Plt Count MPV Neut % (Auto) Lymph % (Auto) Kern % (Auto) Eos % (Auto) Baso % (Auto) Lymph # (Auto) Kern # (Auto) Eos # (Auto) Baso # (Auto) Absolute Neuts (auto) Neutrophils % (Manual) Lymphocytes % (Manual) Monocytes % (Manual) Platelet Evaluation Anisocytosis (manual) Sodium Potassium Chloride Carbon Dioxide Anion Gap BUN Creatinine Est GFR ( Amer) Est GFR (Non-Af Amer) POC Glucose (mg/dL) Random Glucose Calcium Phosphorus Magnesium Total Bilirubin Direct Bilirubin AST ALT Alkaline Phosphatase Ammonia 34 H D Total Protein Albumin Globulin Albumin/Globulin Ratio Hepatitis C Antibody Hep C Ab Signal/Cutoff Assessment & Plan (1) Cirrhosis Assessment and Plan: patient has cirrhosis likely for hepatitis C. Possible portal hypertension in view of thrombocytopenia and encephalopathy. Should have an ultrasound of the liver for HCC surveillance. Give her obesity, she may need a CT or MRI if ultrasound exam inadequate. 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 Still may be a treatment candidate. Though she has multiple co-morbidities, she is only 67 years old. Given she already has cirrhosis and encephalopathy, she should benefit from treatment. Viral eradication will also dramatically reduce her furture risk of HCC. Will discuss with Dr Terry Status: Acute (3) Encephalopathy Assessment and Plan: Agree with Lactulose/xifaxan as per Dr Terry Status: Acute
--- NOTE | 2018-07-27 12:12 | CP.PCM.PN ---
<Adam Beth - Last Filed: 07/27/18 12:09> Subjective - Date & Time of Evaluation Date of Evaluation: 07/27/18 Time of Evaluation: 07:35 - Subjective Subjective: Adam Beth D.O. PGY-3, Internal Medicine Resident, Infectious Disease Progress Note 67-year-old female with a past medical history of renal failure on hemodialysis, coronary artery disease, hypothyroidism, diabetes, cirrhosis of the liver, pacemaker insertion who presents for complaints of altered mental status. Infectious disease consultation was requested. Patient was seen and examined at bedside. Receiving dialysis today. A bit more confused, continues to wax and wane. Thought that I was Dr. Wylie. Not too far off on the name. Objective - Vital Signs/Intake and Output Vital Signs (last 24 hours): Temp Pulse Resp BP Pulse Ox 98 F 78 30 H 122/74 90 L 07/27/18 04:00 07/27/18 04:00 07/26/18 20:22 07/27/18 02:00 07/27/18 01:11 Intake and Output: 07/27/18 07/27/18 06:59 18:59 Intake Total 200 Output Total 50 Balance 150 - Medications Medications: Current Medications Acetaminophen (Tylenol 325mg Tab) 650 mg PO Q6 PRN PRN Reason: TEMP>=99.5F Last Admin: 07/26/18 12:30 Dose: 650 mg Acetaminophen (Tylenol 650 Mg Supp) 650 mg RC Q6H PRN PRN Reason: TEMP>=99.5F Albumin Human (Albumin Human 25% (12.5 Gm/50 Ml)) 25 gm IV TTS PRN PRN Reason: Other Aspirin (Aspirin Chewable) 81 mg PO DAILY [facility] Last Admin: 07/26/18 10:00 Dose: 81 mg Atorvastatin Calcium (Lipitor) 80 mg PO HS [facility] Last Admin: 07/26/18 22:19 Dose: 80 mg Cinacalcet (Sensipar) 30 mg PO DIN [facility] Last Admin: 07/26/18 17:12 Dose: 30 mg Darbepoetin Glenn (Aranesp) 60 mcg IVP QWK [facility] Last Admin: 07/25/18 15:30 Dose: 60 mcg Dextrose (Dextrose 50% Inj) 0 ml IV STAT PRN; Protocol PRN Reason: Hypoglycemia Protocol Diphenhydramine HCl (Benadryl Maximum Strength 1%) 1 ea TOP Q6H PRN PRN Reason: Itching / Pruritus Last Admin: 07/26/18 16:56 Dose: 1 applic Doxycycline Hyclate (Doryx) 100 mg PO Q12 [facility]; Protocol Last Admin: 07/26/18 22:17 Dose: 100 mg Dextrose (Dextrose 5% In Water 1000 Ml) 1,000 mls @ 0 mls/hr IV .Q0M PRN; Protocol PRN Reason: Hypoglycemia Protocol Thiamine HCl 100 mg/ Sodium (Chloride) 51 mls @ 153 mls/hr IV DAILY [facility] Insulin Human Lispro (Humalog Med) 0 units SC AC [facility]; Protocol Last Admin: 07/26/18 17:00 Dose: 3 u Insulin Human NPH (Humulin N) 10 units SC ACB [facility] Last Admin: 07/26/18 08:05 Dose: Not Given Insulin Human NPH (Humulin N) 10 units SC DAILY@1745 [facility] Last Admin: 07/26/18 16:55 Dose: 10 unit Lactic Acid (Lac-Hydrin 12% Cream (140 G)) 0 ea TOP DAILY [facility] Levalbuterol HCl (Xopenex) 0.63 mg IH [id number] [facility] Last Admin: 07/27/18 08:28 Dose: Not Given Levothyroxine Sodium (Synthroid) 50 mcg PO 0600 [facility] Last Admin: 07/27/18 05:19 Dose: 50 mcg Lidocaine (Lidoderm) 1 ea TD DAILY [facility] Last Admin: 07/26/18 23:24 Dose: 1 ea Metoprolol Tartrate (Lopressor) 25 mg PO BRKDIN [facility] Last Admin: 07/26/18 17:01 Dose: 25 mg Midodrine (Proamatine) 10 mg PO TID [facility] Last Admin: 07/26/18 17:02 Dose: 10 mg Ondansetron HCl (Zofran Inj) 4 mg IVP Q4H PRN PRN Reason: Nausea/Vomiting Pantoprazole Sodium (Protonix Ec Tab) 40 mg PO Q12 [facility] Last Admin: 07/26/18 22:20 Dose: 40 mg Rifaximin (Xifaxan) 550 mg PO BID [facility]; Protocol Last Admin: 07/26/18 09:59 Dose: 550 mg Sennosides (Senokot Tab) 17.2 mg PO HS [facility] Last Admin: 07/26/18 23:09 Dose: Not Given Sevelamer HCl (Renagel) 800 mg PO TID [facility] Last Admin: 07/26/18 17:03 Dose: 800 mg Vitamin B Complex/Vit C/Folic Acid (Nephro-Jose Miguel) 1 tab PO DAILY [facility] Last Admin: 07/26/18 09:59 Dose: 1 tab - Labs Labs: 07/27/18 05:30 07/27/18 05:30 PT 14.6 SECONDS (9.4-12.5) H 07/25/18 09:40 INR 1.29 07/25/18 09:40 APTT 28.2 Seconds (26.9-38.3) 07/25/18 09:40 - Constitutional Appears: Non-toxic, No Acute Distress, confused - Head Exam Head Exam: ATRAUMATIC, NC - Eye Exam Eye Exam: EOMI. absent: Scleral icterus - ENT Exam ENT Exam: Mucous Membranes Moist - Neck Exam Neck Exam: Normal Inspection, Soft, Supple - Respiratory Exam Respiratory Exam: absent: Rhonchi, Wheezes - Cardiovascular Exam Cardiovascular Exam: +S1, +S2 - GI/Abdominal Exam GI & Abdominal Exam: Soft. absent: Tenderness - Extremities Exam Extremities Exam: absent: Tenderness - Neurological Exam Neurological Exam: Alert, Awake, confused, nonfocal - Skin Skin Exam: Dry, Warm Assessment and Plan - Assessment and Plan (Free Text) Assessment: 67-year-old female with a past medical history of renal failure on hemodialysis, coronary artery disease, hypothyroidism, diabetes, cirrhosis of the liver, pacemaker insertion who presents for complaints of altered mental status. Plan: Altered mental status Likely 2/2 hepatic encephalopathy Agree that she can benefit from hepatobiliary evaluation Empirically on doxycycline PO day 2 Has not had fevers or tachycardia or leukocytosis BCXs negative 2/2 day 2 MRSA nares negative Procalcitonin normal We will follow Patient was seen and examined and case will be discussed with attending physician Thank you for the pleasure participating in the care of this patient <Bill Whitt - Last Filed: 07/27/18 13:12> Objective - Vital Signs/Intake and Output Vital Signs (last 24 hours): Temp Pulse Resp BP Pulse Ox 98 F 78 30 H 122/74 90 L 07/27/18 04:00 07/27/18 04:00 07/26/18 20:22 07/27/18 02:00 07/27/18 01:11 Intake and Output: 07/27/18 07/27/18 06:59 18:59 Intake Total 200 Output Total 50 Balance 150 - Medications Medications: Current Medications Acetaminophen (Tylenol 325mg Tab) 650 mg PO Q6 PRN PRN Reason: TEMP>=99.5F Last Admin: 07/26/18 12:30 Dose: 650 mg Acetaminophen (Tylenol 650 Mg Supp) 650 mg RC Q6H PRN PRN Reason: TEMP>=99.5F Albumin Human (Albumin Human 25% (12.5 Gm/50 Ml)) 25 gm IV TTS PRN PRN Reason: Other Aspirin (Aspirin Chewable) 81 mg PO DAILY [facility] Last Admin: 07/26/18 10:00 Dose: 81 mg Atorvastatin Calcium (Lipitor) 80 mg PO HS [facility] Last Admin: 07/26/18 22:19 Dose: 80 mg Cinacalcet (Sensipar) 30 mg PO DIN [facility] Last Admin: 07/26/18 17:12 Dose: 30 mg Darbepoetin Glenn (Aranesp) 60 mcg IVP QWK [facility] Last Admin: 07/25/18 15:30 Dose: 60 mcg Dextrose (Dextrose 50% Inj) 0 ml IV STAT PRN; Protocol PRN Reason: Hypoglycemia Protocol Diphenhydramine HCl (Benadryl Maximum Strength 1%) 1 ea TOP Q6H PRN PRN Reason: Itching / Pruritus Last Admin: 07/26/18 16:56 Dose: 1 applic Dextrose (Dextrose 5% In Water 1000 Ml) 1,000 mls @ 0 mls/hr IV .Q0M PRN; Protocol PRN Reason: Hypoglycemia Protocol Thiamine HCl 100 mg/ Sodium (Chloride) 51 mls @ 153 mls/hr IV DAILY [facility] Insulin Human Lispro (Humalog Med) 0 units SC AC [facility]; Protocol Last Admin: 07/26/18 17:00 Dose: 3 u Insulin Human NPH (Humulin N) 10 units SC ACB [facility] Last Admin: 07/26/18 08:05 Dose: Not Given Insulin Human NPH (Humulin N) 10 units SC DAILY@1745 [facility] Last Admin: 07/26/18 16:55 Dose: 10 unit Lactic Acid (Lac-Hydrin 12% Cream (140 G)) 0 ea TOP DAILY [facility] Levalbuterol HCl (Xopenex) 0.63 mg IH [id number] [facility] Last Admin: 07/27/18 08:28 Dose: Not Given Levothyroxine Sodium (Synthroid) 50 mcg PO 0600 [facility] Last Admin: 07/27/18 05:19 Dose: 50 mcg Lidocaine (Lidoderm) 1 ea TD DAILY [facility] Last Admin: 07/26/18 23:24 Dose: 1 ea Metoprolol Tartrate (Lopressor) 25 mg PO BRKDIN [facility] Last Admin: 07/26/18 17:01 Dose: 25 mg Midodrine (Proamatine) 10 mg PO TID [facility] Last Admin: 07/26/18 17:02 Dose: 10 mg Ondansetron HCl (Zofran Inj) 4 mg IVP Q4H PRN PRN Reason: Nausea/Vomiting Pantoprazole Sodium (Protonix Ec Tab) 40 mg PO Q12 [facility] Last Admin: 07/26/18 22:20 Dose: 40 mg Rifaximin (Xifaxan) 550 mg PO BID [facility]; Protocol Last Admin: 07/26/18 09:59 Dose: 550 mg Sennosides (Senokot Tab) 17.2 mg PO HS [facility] Last Admin: 07/26/18 23:09 Dose: Not Given Sevelamer HCl (Renagel) 800 mg PO TID [facility] Last Admin: 07/26/18 17:03 Dose: 800 mg Vitamin B Complex/Vit C/Folic Acid (Nephro-Jose Miguel) 1 tab PO DAILY [facility] Last Admin: 07/26/18 09:59 Dose: 1 tab - Labs Labs: 07/27/18 05:30 07/27/18 05:30 PT 14.6 SECONDS (9.4-12.5) H 07/25/18 09:40 INR 1.29 07/25/18 09:40 APTT 28.2 Seconds (26.9-38.3) 07/25/18 09:40 Attending/Attestation - Attestation I have personally seen and examined this patient.: Yes I have fully participated in the care of the patient.: Yes I have reviewed all pertinent clinical information, including history, physical exam and plan: Yes
--- NOTE | 2018-07-27 12:15 | PN ---
DATE: 07/27/2018 SUBJECTIVE: The patient is undergoing dialysis, is complaining of lower back pain. PHYSICAL EXAMINATION: VITAL SIGNS: Blood pressure 122/74, heart rate is in the 70s. NECK: Negative JVD. LUNGS: Decreased breath sounds. HEART: S1, S2. EXTREMITIES: Without edema. LABORATORY DATA: Hemoglobin is 9.7. Chemistries, BUN and creatinine 27 and 6. IMPRESSION: 1. End-stage renal disease. 2. Altered mental status secondary to medications. 3. Recent [id number] myocardial infarction. 4. Coronary artery disease. 5. History of coronary artery bypass surgery. 6. Diabetes mellitus. 7. History of pacemaker. PLAN: Given these findings, the patient is hemodynamically stable. The patient can go to a med-surg floor. Chan Berman MD
--- NOTE | 2018-07-27 12:44 | PN ---
DATE: 07/27/2018 LOCATION: The patient is in ICU, bed 6. SUBJECTIVE: Overnight nurse's notes were reviewed. The patient was found to be episodically confused, combative, agitated. The patient complained of back pain. Yesterday, the patient was able to be out of bed to chair. The patient's mentation was much more awake, alert, responsive, but overnight nurse's notes indicate that the patient was found to be episodically confused, agitated, restless with complaints of back pain. PHYSICAL EXAMINATION: VITAL SIGNS: T-max 98, telemetry shows atrial fibrillation, heart rate 78, respirations 28 to 30, blood pressure 122/74, O2 sat 90% to 100%. HEENT: Head, normocephalic, atraumatic. Pinkish pale conjunctivae, anicteric sclerae. No oropharyngeal lesion. NECK: No neck rigidity. CHEST: Positive left upper chest AICD. Positive kyphosis. LUNGS: Occasional upper anterior lung field rhonchi. CARDIOVASCULAR: S1, S2, irregular rhythm. Positive systolic murmur at left sternal border, right second intercostal space, left second intercostal space. ABDOMEN: Soft, protuberant. Positive bowel sounds. No palpable hepatosplenomegaly. GENITALIA: Female. RECTAL: Examination is deferred. EXTREMITIES: No pitting edema, no calf tenderness, no Zachary's signs. Positive upper extremity AV fistula, positive thrill noted. Motor strength is 5/5 in upper and lower extremities. GAIT: Not tested. MUSCULOSKELETAL: As per the body mass index. NEUROLOGIC: The patient is alert, awake, responsive with positive episodic confusion and episodic agitation noted as per the nurse's notes. DIAGNOSTICS: From 07/27/2018, pending. IMPRESSION AND PLAN: 1. Acute alteration of mental status with acute toxic metabolic encephalopathy versus acute exacerbation of hepatic encephalopathy. 2. End-stage renal disease, hemodialysis dependent. 3. Possible new-onset atrial fibrillation. 4. Hypoxemia. 5. Right bundle-branch block. 6. Left anterior hemiblock and bifascicular block. 7. Lateral coronary ischemia. 8. Anemia. 9. Thrombocytopenia. 10. Hepatic cirrhosis, etiology undetermined. 11. Hypokalemia. 12. Transaminitis. 13. Hyperammonemia. 14. Indeterminate troponin. 15. Hypertensive diabetic chronic kidney disease. 16. Secondary hyperparathyroidism. 17. Mitral regurgitation. 18. Possible right-sided diastolic congestive heart failure with right ventricular dilatation. 19. 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 20. Microvascular ischemic disease of the brain. 21. Ethmoid maxillary sinus mucosal thickening. 22. Inferolateral ischemic changes. 23. Lactic acidosis. 24. Respiratory alkalosis. 25. Toxic metabolic encephalopathy. 26. History of narcotic-dependent pain syndrome and history of questionable narcotic abuse. 27. History of possible narcotic overdose in the past. 28. Degenerative joint disease and chronic kidney disease, mineral bone disease. 29. Deconditioning. 30. Gait dysfunction. 1. Acute decompensated mental status with acute encephalopathy and confusional state and lethargy. 2. Anemia. 3. Thrombocytopenia. 4. End-stage renal disease, hemodialysis dependent three times a week. 5. Hypokalemia. 6. Severe transaminitis with history of cirrhosis. 7. Hyperammonemia. 8. Indeterminate troponin. 9. 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 10. Microvascular ischemic disease of the brain. 11. Ethmoid and maxillary sinus mucosal thickening. 12. Questionable new onset atrial fibrillation. 13. Left axis deviation. 14. Right bundle-branch block. 15. Inferolateral ischemia. 16. Altered mental status. 17. Lactic acidosis. 18. Respiratory alkalosis. 19. Hepatic encephalopathy and toxic metabolic encephalopathy with underlying hepatic cirrhosis. 20. Hypertensive diabetic chronic kidney disease. 21. Secondary hyperparathyroidism. 22. Jrggidej-xn-ldyksu mitral regurgitation. 23. Right ventricular dilatation. 24. Status post automatic implantable cardioverter defibrillator implant. 25. Morbid obesity. Plan at this time, the patient's diagnostic data and lab data will be reviewed when available. Current consultations; Cardiology, Neurology, Infectious Disease, Endocrinology, and Podiatry. The patient will be considered for transfer out of the ICU to telemetry in front of the nursing station. The patient has been consulted also with GI and hepatology service. At present, the patient's further management will be dependent upon the patient's clinical condition, hemodynamic status, as per the patient's response to therapeutic intervention, as per the patient's diagnostic test results, and as per recommendation by all the physicians involved in the care of the patient. the patient's therapeutic intervention will be as per the MAR of today which is reviewed. The patient will be ordered physical therapy, occupational therapy, ambulation therapy, gait training, out of bed to chair. The patient's prognosis guarded. The patient's medical condition has been informed to the patient's next of kin during the previous hospitalization and also updated about the patient's overall [id number] prognosis, which they acknowledged to understand. Dictated and electronically signed, not read. Jimy Simeon MD MTDD
[2018-07-27] MEDS: Thiamine 100 MG in Sodium Chloride 0.9% 50 ML IV SCH (13:02)
[2018-07-27] MEDS: Lidocaine 5% Patch TD SCH (13:03)
[2018-07-27] MEDS: Multivitamin Vitamin B Complex (Nephro-Vite) Tab PO SCH (13:03)
[2018-07-27] MEDS: Insulin Lispro (humaLOG) MEDIUM Coverage SC SCH ×2 (13:04→18:22)
[2018-07-27] MEDS: Insulin Human NPH 1 UNITS/0.01 ML SC SCH ×2 (13:04→18:22)
[2018-07-27] MEDS: Ammonium Lactate 12% Cream (140 g) TOP SCH (13:06)
[2018-07-27] MEDS ORDERED: Albumin Human 25% (12.5 gm/50 ml) IV PRN (14:21)
--- NOTE | 2018-07-27 14:45 | CP.PCM.PN ---
Subjective - Date & Time of Evaluation Date of Evaluation: 07/27/18 Time of Evaluation: 14:43 - Subjective Subjective: Nephrology Consultation Note Assessment: stable AMS ? related to pain meds/sedative and or hepatic encephalopathy as ammonia elevated: IMPROVED Hep C + with likely cirrhosis pulmonary congestion, hypokalemia Diabetic chronic Kidney Disease (E11.22) Hypertensive Chronic Kidney Disease (I12.0) End stage renal disease (N18.6) dependence on hemodialysis (Z99.2) (TTS) via AVF Anemia (D64.9), Hyperphosphatemia (E83.39), Secondary Hyperparathyroidism (E21.1), HTN (I12.0) CAD s/p CABG obesity thrombocytopenia Lytic lesions ? underlying malignancy RV dysfunction, moderate to severe MR Plan: Will plan for next dialysis as per TTS schedule. Continue with Nephrovite 1 tab/day. PRBC as needed for anemia. weekly ADAM with HD continue with phos binders as orally accepting, last Phos 3.6 maintain hemodynamic stable. resumed midodrine 10 mg TID. no on acei/arb as bp usually low. albumin prn with HD ordered Glycemic control, Dialysis consistent diet Further work up/management as per primary team Dose meds/antibiotics (if needed) for ESRD status. Avoid fleets enema/magnesium based laxatives. GI, ID Neuro and cardiology following decision for Hep C treatment per GI/ID Thanks for allowing me to participate in care of your patient. Will follow patient with you. Please call if any Qs. had d/w team Dr Amrit Malone Office: [phone] CC: AMS reason for consult: ESRD HPI:Pt is a 67 F with hx of ESRD on hemodialysis (TTS) via AVF , last dialysis Sat, chronic anemia, hyperphosphatemia, secondary hyperparathyroidism, Diabetes Mellitus, hypertension CAD s/p CABG, chronic back pain presented with complaints of AMS.Renal consult requested for ESRD management. [place] similar and [place] [facility] [place] which was attributed to pain meds ROS: c/o chronic backpain. AMS much better. no SOB upset and wants to leave from hospital Physical Examination: General Appearance: in no acute respiratory distress, comfortable Vitals reviewed and noted as below Head; Atraumatic, normocephalic ENT: no ulcers no thrush. Tongue is midline. Oropharynx: no rash or ulcers. Neck; supple no lymphadenopathy, no thyromegaly or bruit Lungs: Normal respiratory rate/effort. Breath sounds bilateral equal and clear Heart: Normal rate. s1s2 normal. No rub or gallop. Extremities: no Rt edema. No varicose veins. has chronic left leg edema Neurological: Patient is communicative . awake alert today Skin: Warm and dry. Normal turgor. No rash. Palpitation: Normal elasticity for age Abdomen: Abdomen is soft. Bowel sounds +. There is no abdominal tenderness, no guarding/rigidity or organomegaly Psych: limited insight. upset and agitated MSK: no joint tenderness or swelling. Digits and nails normal, no deformity : kidney or bladder not palpable Access: AVF Labs/imaging reviewed. Past medical history, past surgical history, family history, social history, allergy reviewed and noted as below Family Hx: no hx of CKD. Non contributory Objective - Vital Signs/Intake and Output Vital Signs (last 24 hours): Temp Pulse Resp BP Pulse Ox 98 F 88 21 91/66 L 100 07/27/18 04:00 07/27/18 13:51 07/27/18 12:44 07/27/18 12:45 07/27/18 02:17 Intake and Output: 07/27/18 07/27/18 06:59 18:59 Intake Total 200 Output Total 50 Balance 150 - Medications Medications: Current Medications Acetaminophen (Tylenol 325mg Tab) 650 mg PO Q6 PRN PRN Reason: TEMP>=99.5F Last Admin: 07/26/18 12:30 Dose: 650 mg Acetaminophen (Tylenol 650 Mg Supp) 650 mg RC Q6H PRN PRN Reason: TEMP>=99.5F Albumin Human (Albumin Human 25% (12.5 Gm/50 Ml)) 25 gm IV TTS PRN PRN Reason: Other Aspirin (Aspirin Chewable) 81 mg PO DAILY [facility] Last Admin: 07/27/18 13:02 Dose: 81 mg Atorvastatin Calcium (Lipitor) 80 mg PO HS [facility] Last Admin: 07/26/18 22:19 Dose: 80 mg Cinacalcet (Sensipar) 30 mg PO DIN [facility] Last Admin: 07/26/18 17:12 Dose: 30 mg Darbepoetin Glenn (Aranesp) 60 mcg IVP QWK [facility] Last Admin: 07/25/18 15:30 Dose: 60 mcg Dextrose (Dextrose 50% Inj) 0 ml IV STAT PRN; Protocol PRN Reason: Hypoglycemia Protocol Diphenhydramine HCl (Benadryl Maximum Strength 1%) 1 ea TOP Q6H PRN PRN Reason: Itching / Pruritus Last Admin: 07/26/18 16:56 Dose: 1 applic Dextrose (Dextrose 5% In Water 1000 Ml) 1,000 mls @ 0 mls/hr IV .Q0M PRN; Protocol PRN Reason: Hypoglycemia Protocol Thiamine HCl 100 mg/ Sodium (Chloride) 51 mls @ 153 mls/hr IV DAILY [facility] Last Admin: 07/27/18 13:02 Dose: 153 mls/hr Insulin Human Lispro (Humalog Med) 0 units SC AC [facility]; Protocol Last Admin: 07/27/18 13:04 Dose: Not Given Insulin Human NPH (Humulin N) 10 units SC ACB [facility] Last Admin: 07/27/18 13:04 Dose: Not Given Insulin Human NPH (Humulin N) 10 units SC DAILY@1745 [facility] Last Admin: 07/26/18 16:55 Dose: 10 unit Lactic Acid (Lac-Hydrin 12% Cream (140 G)) 0 ea TOP DAILY [facility] Last Admin: 07/27/18 13:06 Dose: 1 applic Levalbuterol HCl (Xopenex) 0.63 mg IH [id number] [facility] Last Admin: 07/27/18 13:19 Dose: 0.63 mg Levothyroxine Sodium (Synthroid) 50 mcg PO 0600 [facility] Last Admin: 07/27/18 05:19 Dose: 50 mcg Lidocaine (Lidoderm) 1 ea TD DAILY [facility] Last Admin: 07/27/18 13:03 Dose: 1 ea Metoprolol Tartrate (Lopressor) 25 mg PO BRKDIN [facility] Last Admin: 07/27/18 13:04 Dose: Not Given Midodrine (Proamatine) 10 mg PO TID [facility] Last Admin: 07/27/18 13:05 Dose: Not Given Ondansetron HCl (Zofran Inj) 4 mg IVP Q4H PRN PRN Reason: Nausea/Vomiting Pantoprazole Sodium (Protonix Ec Tab) 40 mg PO Q12 [facility] Last Admin: 07/26/18 22:20 Dose: 40 mg Rifaximin (Xifaxan) 550 mg PO BID [facility]; Protocol Last Admin: 07/27/18 13:03 Dose: 550 mg Sennosides (Senokot Tab) 17.2 mg PO HS [facility] Last Admin: 07/26/18 23:09 Dose: Not Given Sevelamer HCl (Renagel) 800 mg PO TID [facility] Last Admin: 07/27/18 13:06 Dose: Not Given Vitamin B Complex/Vit C/Folic Acid (Nephro-Jose Miguel) 1 tab PO DAILY [facility] Last Admin: 07/27/18 13:03 Dose: 1 tab - Labs Labs: 07/27/18 05:30 07/27/18 05:30 PT 14.6 SECONDS (9.4-12.5) H 07/25/18 09:40 INR 1.29 07/25/18 09:40 APTT 28.2 Seconds (26.9-38.3) 07/25/18 09:40
--- NOTE | 2018-07-27 15:00 | CP.PCM.PN ---
<William Berger Bharathi - Last Filed: 07/27/18 14:56> Subjective - Date & Time of Evaluation Date of Evaluation: 07/27/18 Time of Evaluation: 09:00 - Subjective Subjective: Medicine progress note (Dr. Simeon) - Celine, PGY -2 Patient seen and examined at bedside. Back pain overnight; had loose stools, became incontinent; skin protectant was applied. This am, still complaining of back pain, has lidoderm patch applied. Remains on Xifaxan BID; On Doxy. Objective - Vital Signs/Intake and Output Vital Signs (last 24 hours): Temp Pulse Resp BP Pulse Ox 98 F 88 21 91/66 L 100 07/27/18 04:00 07/27/18 13:51 07/27/18 12:44 07/27/18 12:45 07/27/18 02:17 Intake and Output: 07/27/18 07/27/18 06:59 18:59 Intake Total 200 Output Total 50 Balance 150 - Medications Medications: Current Medications Acetaminophen (Tylenol 325mg Tab) 650 mg PO Q6 PRN PRN Reason: TEMP>=99.5F Last Admin: 07/26/18 12:30 Dose: 650 mg Acetaminophen (Tylenol 650 Mg Supp) 650 mg RC Q6H PRN PRN Reason: TEMP>=99.5F Albumin Human (Albumin Human 25% (12.5 Gm/50 Ml)) 25 gm IV TTS PRN PRN Reason: Other Aspirin (Aspirin Chewable) 81 mg PO DAILY [facility] Last Admin: 07/27/18 13:02 Dose: 81 mg Atorvastatin Calcium (Lipitor) 80 mg PO HS [facility] Last Admin: 07/26/18 22:19 Dose: 80 mg Cinacalcet (Sensipar) 30 mg PO DIN [facility] Last Admin: 07/26/18 17:12 Dose: 30 mg Darbepoetin Glenn (Aranesp) 60 mcg IVP QWK [facility] Last Admin: 07/25/18 15:30 Dose: 60 mcg Dextrose (Dextrose 50% Inj) 0 ml IV STAT PRN; Protocol PRN Reason: Hypoglycemia Protocol Diphenhydramine HCl (Benadryl Maximum Strength 1%) 1 ea TOP Q6H PRN PRN Reason: Itching / Pruritus Last Admin: 07/26/18 16:56 Dose: 1 applic Dextrose (Dextrose 5% In Water 1000 Ml) 1,000 mls @ 0 mls/hr IV .Q0M PRN; Protocol PRN Reason: Hypoglycemia Protocol Thiamine HCl 100 mg/ Sodium (Chloride) 51 mls @ 153 mls/hr IV DAILY [facility] Last Admin: 07/27/18 13:02 Dose: 153 mls/hr Insulin Human Lispro (Humalog Med) 0 units SC AC [facility]; Protocol Last Admin: 07/27/18 13:04 Dose: Not Given Insulin Human NPH (Humulin N) 10 units SC ACB [facility] Last Admin: 07/27/18 13:04 Dose: Not Given Insulin Human NPH (Humulin N) 10 units SC DAILY@1745 [facility] Last Admin: 07/26/18 16:55 Dose: 10 unit Lactic Acid (Lac-Hydrin 12% Cream (140 G)) 0 ea TOP DAILY [facility] Last Admin: 07/27/18 13:06 Dose: 1 applic Levalbuterol HCl (Xopenex) 0.63 mg IH [id number] [facility] Last Admin: 07/27/18 13:19 Dose: 0.63 mg Levothyroxine Sodium (Synthroid) 50 mcg PO 0600 [facility] Last Admin: 07/27/18 05:19 Dose: 50 mcg Lidocaine (Lidoderm) 1 ea TD DAILY [facility] Last Admin: 07/27/18 13:03 Dose: 1 ea Metoprolol Tartrate (Lopressor) 25 mg PO BRKDIN [facility] Last Admin: 07/27/18 13:04 Dose: Not Given Midodrine (Proamatine) 10 mg PO TID [facility] Last Admin: 07/27/18 13:05 Dose: Not Given Ondansetron HCl (Zofran Inj) 4 mg IVP Q4H PRN PRN Reason: Nausea/Vomiting Pantoprazole Sodium (Protonix Ec Tab) 40 mg PO Q12 [facility] Last Admin: 07/26/18 22:20 Dose: 40 mg Rifaximin (Xifaxan) 550 mg PO BID [facility]; Protocol Last Admin: 07/27/18 13:03 Dose: 550 mg Sennosides (Senokot Tab) 17.2 mg PO HS [facility] Last Admin: 07/26/18 23:09 Dose: Not Given Sevelamer HCl (Renagel) 800 mg PO TID [facility] Last Admin: 07/27/18 13:06 Dose: Not Given Vitamin B Complex/Vit C/Folic Acid (Nephro-Jose Miguel) 1 tab PO DAILY [facility] Last Admin: 07/27/18 13:03 Dose: 1 tab - Labs Labs: 07/27/18 05:30 07/27/18 05:30 PT 14.6 SECONDS (9.4-12.5) H 07/25/18 09:40 INR 1.29 07/25/18 09:40 APTT 28.2 Seconds (26.9-38.3) 07/25/18 09:40 - Constitutional Appears: Well - Head Exam Head Exam: ATRAUMATIC, NORMAL INSPECTION, NORMOCEPHALIC - Eye Exam Eye Exam: EOMI, Normal appearance, PERRL Pupil Exam: NORMAL ACCOMODATION, PERRL - ENT Exam ENT Exam: Mucous Membranes Moist, Normal Exam - Neck Exam Neck Exam: Full ROM, Normal Inspection. absent: Lymphadenopathy - Respiratory Exam Respiratory Exam: Clear to Ausculation Bilateral, NORMAL BREATHING PATTERN - Cardiovascular Exam Cardiovascular Exam: REGULAR RHYTHM, +S1, +S2. absent: Murmur - GI/Abdominal Exam GI & Abdominal Exam: Soft, Normal Bowel Sounds. absent: Tenderness - Extremities Exam Extremities Exam: Full ROM, Normal Capillary Refill, Normal Inspection. absent: Joint Swelling, Pedal Edema - Back Exam Back Exam: NORMAL INSPECTION - Neurological Exam Neurological Exam: Alert, Awake, CN II-XII Intact, Normal Gait, Oriented x3 - Psychiatric Exam Psychiatric exam: Normal Affect, Normal Mood - Skin Skin Exam: Dry, Intact, Normal Color, Warm Assessment and Plan - Assessment and Plan (Free Text) Assessment: Patient is a 67 F with a past medical history of CAD s/p CABG and 5 stents, ESRD on HD (Tuesday, , Tuesday), hypertension, hypothyroidism, diabetes mellitus presenting with altered mental status. Unable to obtain history of when her last dialysis session was. Electrolytes are normal, but patient has a severe respiratory alkalosis with lactic acid. Chest XR reveals pulmonary vascu lar congestion. Recent ECHO from May 2018 shows severe TR but normal EF. RVSP was 19, but read as underestimation. Plan AMS, possibly 2/2 infection VS respiratory alkalosis VS lactic acidosis VS hepatic encephalopathy Etiology unclear at this point, as Head CT negative and no apparent electrolyte abnormalities aside from hypermagnesemia. Random glucose was normal. BUN was not severely elevated. However, Ammonia was elevated @ 125. Today, s/p lactulose and Rifaximin, patient's ammonia has come to 45. Per ID: no apparent sign of infxn, will give doxy, merrem, vanc, and acyclovir. Per Neuro: Xifaxan 550 BID, rpt ammonia daily; thiamine 100 daily. HCV is reactive right now. - Aspiration, Seizure, Fall precautions; Neurochecks; HOB 45 degrees - Daily ammonia levels - Continue Doxy - Lactulose WA and Rifaximin BID - NPO diet - GI Consultation: Dr. Terry - ID Consultation: Dr. Whitt - Nephro Consultation: Dr. Malone - Neuro consulation: Dr. Dorman - Cardiology consultation: Dr. Berman - ICU Consultation: Dr. Alford ESRD - Nephrology consulted - HD today - Replete electrolytes as needed - Continue with renagel, cinacalcet Anemia of CKD Hgb below goal in CKD at 9.7 (goal of 10-11) - Dose aranesp per nephro CKD Mineral Disorder - Continue with phoslo Coronary Artery Disease - Cardiology consulted; continue home meds Hypothyroidism - Continue home meds Hyperlipidemia - Continue home meds DM -ISS-low with fingerstick ACHS <Jimy Simeon U - Last Filed: 07/31/18 10:38> Objective - Vital Signs/Intake and Output Vital Signs (last 24 hours): Temp Pulse Resp BP Pulse Ox 97.2 F L 77 20 104/55 L 95 07/30/18 18:00 07/31/18 09:02 07/30/18 18:00 07/31/18 09:02 07/30/18 18:00 Intake and Output: 07/31/18 07/31/18 06:59 18:59 Intake Total 180 Output Total 1 Balance 179 - Medications Medications: Current Medications Acetaminophen (Tylenol 325mg Tab) 650 mg PO Q6 PRN PRN Reason: TEMP>=99.5F Last Admin: 07/30/18 01:16 Dose: 650 mg Acetaminophen (Tylenol 650 Mg Supp) 650 mg RC Q6H PRN PRN Reason: TEMP>=99.5F Albumin Human (Albumin Human 25% (12.5 Gm/50 Ml)) 25 gm IV TTS PRN PRN Reason: Other Aspirin (Aspirin Chewable) 81 mg PO DAILY [facility] Last Admin: 07/31/18 10:26 Dose: 81 mg Atorvastatin Calcium (Lipitor) 80 mg PO HS [facility] Last Admin: 07/30/18 21:31 Dose: 80 mg Cinacalcet (Sensipar) 30 mg PO DIN [facility] Last Admin: 07/30/18 18:48 Dose: 30 mg Darbepoetin Glenn (Aranesp) 60 mcg IVP QWK [facility] Last Admin: 07/25/18 15:30 Dose: 60 mcg Dextrose (Dextrose 50% Inj) 0 ml IV STAT PRN; Protocol PRN Reason: Hypoglycemia Protocol Diphenhydramine HCl (Benadryl Maximum Strength 1%) 1 ea TOP Q6H PRN PRN Reason: Itching / Pruritus Last Admin: 07/30/18 11:20 Dose: 1 applic Dextrose (Dextrose 5% In Water 1000 Ml) 1,000 mls @ 0 mls/hr IV .Q0M PRN; Protocol PRN Reason: Hypoglycemia Protocol Thiamine HCl 100 mg/ Sodium (Chloride) 51 mls @ 153 mls/hr IV DAILY [facility] Last Admin: 07/31/18 10:28 Dose: 153 mls/hr Insulin Human Lispro (Humalog Med) 0 units SC AC [facility]; Protocol Last Admin: 07/31/18 08:50 Dose: 1 u Insulin Human NPH (Humulin N) 10 units SC ACB [facility] Last Admin: 07/31/18 08:49 Dose: 10 units Insulin Human NPH (Humulin N) 10 units SC DAILY@1745 [facility] Last Admin: 07/30/18 17:26 Dose: Not Given Lactic Acid (Lac-Hydrin 12% Cream (140 G)) 0 ea TOP DAILY [facility] Last Admin: 07/31/18 10:26 Dose: 1 applic Lactulose (Enulose) 20 gm PO BID [facility] Last Admin: 07/31/18 10:26 Dose: 20 gm Levalbuterol HCl (Xopenex) 0.63 mg IH [id number] [facility] Last Admin: 07/31/18 08:02 Dose: 0.63 mg Levothyroxine Sodium (Synthroid) 50 mcg PO 0600 [facility] Last Admin: 07/31/18 05:25 Dose: 50 mcg Lidocaine (Lidoderm) 1 ea TD DAILY [facility] Last Admin: 03/18/19 10:27 Dose: 1 ea Lidocaine (Lidoderm) 1 ea TD DAILY [facility] Last Admin: 07/31/18 10:27 Dose: 1 ea Metoprolol Tartrate (Lopressor) 25 mg PO BRKDIN [facility] Last Admin: 07/31/18 09:02 Dose: Not Given Midodrine (Proamatine) 10 mg PO TID [facility] Last Admin: 07/31/18 10:27 Dose: 10 mg Mupirocin (Bactroban Ointment) 0 gm TOP BID [facility] Last Admin: 07/31/18 10:26 Dose: 1 applic Ondansetron HCl (Zofran Inj) 4 mg IVP Q4H PRN PRN Reason: Nausea/Vomiting Pantoprazole Sodium (Protonix Ec Tab) 40 mg PO Q12 [facility] Last Admin: 07/31/18 10:28 Dose: 40 mg Quetiapine Fumarate (Seroquel) 12.5 mg PO HS PRN; Protocol PRN Reason: Agitation Last Admin: 07/30/18 21:31 Dose: 12.5 mg Sennosides (Senokot Tab) 17.2 mg PO HS [facility] Last Admin: 07/30/18 21:32 Dose: Not Given Sevelamer HCl (Renagel) 800 mg PO TID [facility] Last Admin: 07/31/18 10:28 Dose: 800 mg Tramadol HCl (Ultram) 50 mg PO Q12H PRN PRN Reason: Pain, moderate (4-7) Last Admin: 07/31/18 10:04 Dose: 50 mg Vitamin B Complex/Vit C/Folic Acid (Nephro-Jose Miguel) 1 tab PO DAILY [facility] Last Admin: 07/31/18 10:27 Dose: 1 tab - Labs Labs: 07/30/18 11:20 07/30/18 11:20 PT 14.6 SECONDS (9.4-12.5) H 07/25/18 09:40 INR 1.29 07/25/18 09:40 APTT 28.2 Seconds (26.9-38.3) 07/25/18 09:40 Attending/Attestation - Attestation I have personally seen and examined this patient.: Yes I have fully participated in the care of the patient.: Yes I have reviewed all pertinent clinical information, including history, physical exam and plan: Yes Notes (Text): Please see/read my dictated notes.
--- NOTE | 2018-07-27 15:23 | CP.PCM.APN ---
Subjective - Date & Time of Evaluation Date of Evaluation: 07/27/18 Time of Evaluation: 01:30 - Subjective Subjective: Pt. seen and examined in bed, appears confused and disoriented to place, stating " whats this doing here at the bustop", denied any dyspnea, unable to answer further questions, due to disoriented state. Objective - Vital Signs/Intake and Output Vital Signs (last 24 hours): Temp Pulse Resp BP Pulse Ox 98 F 88 21 91/66 L 100 07/27/18 04:00 07/27/18 13:51 07/27/18 12:44 07/27/18 12:45 07/27/18 02:17 Intake and Output: 07/27/18 07/27/18 06:59 18:59 Intake Total 200 Output Total 50 Balance 150 - Medications Medications: Current Medications Acetaminophen (Tylenol 325mg Tab) 650 mg PO Q6 PRN PRN Reason: TEMP>=99.5F Last Admin: 07/26/18 12:30 Dose: 650 mg Acetaminophen (Tylenol 650 Mg Supp) 650 mg RC Q6H PRN PRN Reason: TEMP>=99.5F Albumin Human (Albumin Human 25% (12.5 Gm/50 Ml)) 25 gm IV TTS PRN PRN Reason: Other Aspirin (Aspirin Chewable) 81 mg PO DAILY [facility] Last Admin: 07/27/18 13:02 Dose: 81 mg Atorvastatin Calcium (Lipitor) 80 mg PO HS [facility] Last Admin: 07/26/18 22:19 Dose: 80 mg Cinacalcet (Sensipar) 30 mg PO DIN [facility] Last Admin: 07/26/18 17:12 Dose: 30 mg Darbepoetin Glenn (Aranesp) 60 mcg IVP QWK [facility] Last Admin: 07/25/18 15:30 Dose: 60 mcg Dextrose (Dextrose 50% Inj) 0 ml IV STAT PRN; Protocol PRN Reason: Hypoglycemia Protocol Diphenhydramine HCl (Benadryl Maximum Strength 1%) 1 ea TOP Q6H PRN PRN Reason: Itching / Pruritus Last Admin: 07/26/18 16:56 Dose: 1 applic Dextrose (Dextrose 5% In Water 1000 Ml) 1,000 mls @ 0 mls/hr IV .Q0M PRN; Protocol PRN Reason: Hypoglycemia Protocol Thiamine HCl 100 mg/ Sodium (Chloride) 51 mls @ 153 mls/hr IV DAILY [facility] Last Admin: 07/27/18 13:02 Dose: 153 mls/hr Insulin Human Lispro (Humalog Med) 0 units SC AC [facility]; Protocol Last Admin: 07/27/18 13:04 Dose: Not Given Insulin Human NPH (Humulin N) 10 units SC ACB [facility] Last Admin: 07/27/18 13:04 Dose: Not Given Insulin Human NPH (Humulin N) 10 units SC DAILY@1745 [facility] Last Admin: 07/26/18 16:55 Dose: 10 unit Lactic Acid (Lac-Hydrin 12% Cream (140 G)) 0 ea TOP DAILY [facility] Last Admin: 07/27/18 13:06 Dose: 1 applic Levalbuterol HCl (Xopenex) 0.63 mg IH [id number] [facility] Last Admin: 07/27/18 13:19 Dose: 0.63 mg Levothyroxine Sodium (Synthroid) 50 mcg PO 0600 [facility] Last Admin: 07/27/18 05:19 Dose: 50 mcg Lidocaine (Lidoderm) 1 ea TD DAILY [facility] Last Admin: 07/27/18 13:03 Dose: 1 ea Metoprolol Tartrate (Lopressor) 25 mg PO BRKDIN [facility] Last Admin: 07/27/18 13:04 Dose: Not Given Midodrine (Proamatine) 10 mg PO TID [facility] Last Admin: 07/27/18 13:05 Dose: Not Given Ondansetron HCl (Zofran Inj) 4 mg IVP Q4H PRN PRN Reason: Nausea/Vomiting Pantoprazole Sodium (Protonix Ec Tab) 40 mg PO Q12 [facility] Last Admin: 07/26/18 22:20 Dose: 40 mg Rifaximin (Xifaxan) 550 mg PO BID [facility]; Protocol Last Admin: 07/27/18 13:03 Dose: 550 mg Sennosides (Senokot Tab) 17.2 mg PO HS [facility] Last Admin: 07/26/18 23:09 Dose: Not Given Sevelamer HCl (Renagel) 800 mg PO TID [facility] Last Admin: 07/27/18 13:06 Dose: Not Given Vitamin B Complex/Vit C/Folic Acid (Nephro-Jose Miguel) 1 tab PO DAILY [facility] Last Admin: 07/27/18 13:03 Dose: 1 tab - Labs Labs: 07/27/18 05:30 07/27/18 05:30 PT 14.6 SECONDS (9.4-12.5) H 07/25/18 09:40 INR 1.29 07/25/18 09:40 APTT 28.2 Seconds (26.9-38.3) 07/25/18 09:40 - Constitutional Appears: Well, Non-toxic - Head Exam Head Exam: NORMOCEPHALIC - Eye Exam Eye Exam: Normal appearance - ENT Exam ENT Exam: Mucous Membranes Moist, Normal Exam - Neck Exam Neck Exam: Full ROM - Respiratory Exam Respiratory Exam: Clear to Ausculation Bilateral - Cardiovascular Exam Cardiovascular Exam: REGULAR RHYTHM, +S1, +S2 - GI/Abdominal Exam GI & Abdominal Exam: Soft, Normal Bowel Sounds - Rectal Exam Rectal Exam: Deferred - Exam Exam: absent: Circumcision, NORMAL INSPECTION, Scrotal Swelling, Testicular Tenderness, Uretheral Discharge, Testicular Vertical Lie, Bladder Distension Speculum exam: absent: Cervical Discharge, Erythema, Foreign Body, Laceration, NORMAL SPECULUM EXAM, Tissue, Vaginal Bleeding, Vaginal Discharge - Extremities Exam Extremities Exam: absent: Calf Tenderness, Full ROM, Joint Swelling, Normal Capillary Refill, Normal Inspection, Pedal Edema, Tenderness - Back Exam Back Exam: NORMAL INSPECTION - Neurological Exam Neurological Exam: Altered - Psychiatric Exam Psychiatric exam: Anxious - Skin Skin Exam: Dry, Intact Assessment and Plan - Assessment and Plan (Free Text) Assessment: ITS Impressions Chest X-Ray 07/25/18 09:29 IMPRESSION: No active pulmonary disease. Severe cardiomegaly and pulmonary venous congestion. Head CT 07/25/18 09:30 IMPRESSION: No evidence of acute intracranial hemorrhage mass effect or midline shift. Dental findings as discussed above. Assessment: 67 y/o F, with a past medical history of CAD s/p CABG and 5 stents, ESRD on HD (Tuesday, , Tuesday), hypertension, hypothyroidism, and diabetes mellitus, presents to the ED from [facility] via EMS for evaluation of AMS since prior to arrival. As per EMS, patient was given Bendaryl in an attempt to wear her off of percocet and subsequently became lethargic, and non-responsive admitted for further eval and treatment. Plan: 1. AMS Likely secondary to hepatic encephalopathy, with elevated ammonia level 125 on admit. follow ammonia levels, continue Xifaxin and lactulose, monitor for BMs likely secondary to meds, Percocet, Benadryl, previously received. 2. Pulm, venous congestion continue, recs as per card, likely not CHF, in setting of CRF, receiving HD. 3. Cirrhosis likely from Hep.C, recs as per Dr. Betts 4. HeP. C antibody positive -REc. Ultrasound of Liver, or MRI of abdomen for further eval. Continue to monitor clinical status and follow closely. DW with consultants, PT eval pending.
[2018-07-27] MEDS: Pantoprazole 40 mg EC Tab PO SCH ×2 (18:28→21:26)
--- NOTE | 2018-07-27 18:32 | US ---
HISTORY: cirrhosis COMPARISON: CT chest, abdomen, and pelvis without IV contrast performed 06/11/18 TECHNIQUE: Sonographic evaluation of the abdomen. FINDINGS: LIVER: Measures 16.6 cm in sagittal dimension. Nodular hepatic contour. Heterogeneous hepatic parenchyma. No focal hepatic mass identified. The main portal vein appears patent with normal directional flow. No intrahepatic bile duct dilatation. GALLBLADDER: Cholecystectomy. COMMON BILE DUCT: Measures approximately 5-7 mm. PANCREAS: Not well visualized. RIGHT KIDNEY: Measures 8.8 x 3.9 x 4.7 cm. No obstructing calculus or hydronephrosis identified. Echogenic renal parenchyma. LEFT KIDNEY: Measures 8.9 x 3.4 x 4.5 cm. No obstructing calculus or hydronephrosis identified. SPLEEN: Measures approximately 13.3 cm. 1.4 x 1.6 cm hyperechogenic mass, indeterminant. AORTA: Limited views appear unremarkable. IVC: Limited views appear unremarkable. OTHER FINDINGS: None. IMPRESSION: Splenomegaly. Indeterminate 1.4 x 1.6 cm hyperechoic splenic mass. Dilated common bile duct in the setting of cholecystectomy. Echogenic right renal parenchyma may be seen in the setting of medical renal disease. Nodular hepatic contour. Heterogeneous hepatic parenchyma. Correlate clinically for cirrhosis.
--- NOTE | 2018-07-27 19:59 | CP.PCM.PCO ---
<Diomedes Casillas - Last Filed: 07/27/18 19:49> Summary - Summary of Event Summary of Event: Julia white called for Ms. Gabriel due to agitation. Patient was yelling and being combative to nurses and staff. Patient was getting out of bed and trying to leave. However, she is a fall risk and when asked to get back in bed patient became more agitated and argumentative. Patient was admitted for altered mental status, which is improving according to nurses after dialysis. However, she has dementia at baseline and is not have the capacity to make her own decisions. Will give one dose of ativan 1 mg, 1:1 sitter, and wrist restraints for patient safety. <Krishna Barriga - Last Filed: 07/28/18 04:01> Attending/Attestation - Attestation I have personally seen and examined this patient.: Yes I have fully participated in the care of the patient.: Yes I have reviewed all pertinent clinical information: Yes Notes (Text): 07/28/18 04:01 Agree. Patient seen.
[2018-07-28] MEDS: Levalbuterol 0.63 MG/3 ML Inhal Soln UD IH SCH ×4 (01:36→20:40)
[2018-07-28 05:41] LABS: BASO # 0.03 K/mm3 (0.0-2.0); BASO % 0.6 % (0.0-3.0); EOS # 0.1 (0.0-0.7); EOS % 1.6 % (1.5-5.0); HEMOGLOBIN 9.7 g/dL (12.0-16.0); LYMPH % 19.8 % (22.0-35.0); MEAN CELL VOLUME 99.7 fl (80.0-105.0); MEAN CORPUSCULAR HEMOGLOBIN 30.2 pg (25.0-35.0); MEAN CORPUSCULAR HGB CONC 30.3 g/dl (31.0-37.0); MEAN PLATELET VOLUME 10.8 fl (7.0-11.0); MONO # 0.9 (0.1-0.6); MONO % 17.7 % (1.0-6.0); RBC 3.21 10^6/uL (3.5-6.1); RED CELL DISTRIBUTION WIDTH 20.3 % (11.5-14.5); WHITE BLOOD COUNT 5.2 10^3/uL (4.5-11.0)
[2018-07-28] MEDS: Levothyroxine 50 MCG TAB PO SCH (06:10)
[2018-07-28 06:31] LABS: ALBUMIN 3.9 g/dL (3.0-4.8); BILIRUBIN,DIRECT 0.9 mg/dL (0.0-0.4); CALCIUM 8.7 mg/dL (8.4-10.5)
[2018-07-28] MEDS: Insulin Lispro (humaLOG) MEDIUM Coverage SC SCH ×3 (07:57→17:30)
[2018-07-28] MEDS: Insulin Human NPH 1 UNITS/0.01 ML SC SCH ×2 (07:58→17:28)
[2018-07-28] MEDS: Multivitamin Vitamin B Complex (Nephro-Vite) Tab PO SCH (09:07)
[2018-07-28] MEDS: Pantoprazole 40 mg EC Tab PO SCH ×2 (09:08→21:51)
[2018-07-28] MEDS: Ammonium Lactate 12% Cream (140 g) TOP SCH (09:08)
[2018-07-28] MEDS: Lidocaine 5% Patch TD SCH ×2 (09:09→15:00)
[2018-07-28] MEDS: Thiamine 100 MG in Sodium Chloride 0.9% 50 ML IV SCH (09:13)
--- NOTE | 2018-07-28 10:19 | CP.PCM.PN ---
<CelineWilliam Garvin - Last Filed: 07/28/18 10:16> Subjective - Date & Time of Evaluation Date of Evaluation: 07/28/18 Time of Evaluation: 10:16 - Subjective Subjective: Medicine progress note (Dr. Simeon) - Celine, PGY -2 Patient seen and examined at bedside. Agitated overnight, hima white was called. Dr. Crowder and Dr. Dorman consulted. Patient is still upset about her back pain and wants narcotics. Is also upset about the amount of medications she has to take. Objective - Vital Signs/Intake and Output Vital Signs (last 24 hours): Temp Pulse Resp BP Pulse Ox 98.6 F 79 20 120/53 L 100 07/28/18 03:51 07/28/18 07:56 07/28/18 03:51 07/28/18 07:56 07/28/18 03:51 Intake and Output: 07/28/18 07/28/18 06:59 18:59 Intake Total 480 Balance 480 - Medications Medications: Current Medications Acetaminophen (Tylenol 325mg Tab) 650 mg PO Q6 PRN PRN Reason: TEMP>=99.5F Last Admin: 07/26/18 12:30 Dose: 650 mg Acetaminophen (Tylenol 650 Mg Supp) 650 mg RC Q6H PRN PRN Reason: TEMP>=99.5F Albumin Human (Albumin Human 25% (12.5 Gm/50 Ml)) 25 gm IV TTS PRN PRN Reason: Other Aspirin (Aspirin Chewable) 81 mg PO DAILY [facility] Last Admin: 07/28/18 09:08 Dose: 81 mg Atorvastatin Calcium (Lipitor) 80 mg PO HS [facility] Last Admin: 07/27/18 21:27 Dose: 80 mg Cinacalcet (Sensipar) 30 mg PO DIN [facility] Last Admin: 07/27/18 18:23 Dose: 30 mg Darbepoetin Glenn (Aranesp) 60 mcg IVP QWK [facility] Last Admin: 07/25/18 15:30 Dose: 60 mcg Dextrose (Dextrose 50% Inj) 0 ml IV STAT PRN; Protocol PRN Reason: Hypoglycemia Protocol Diphenhydramine HCl (Benadryl Maximum Strength 1%) 1 ea TOP Q6H PRN PRN Reason: Itching / Pruritus Last Admin: 07/26/18 16:56 Dose: 1 applic Dextrose (Dextrose 5% In Water 1000 Ml) 1,000 mls @ 0 mls/hr IV .Q0M PRN; Protocol PRN Reason: Hypoglycemia Protocol Thiamine HCl 100 mg/ Sodium (Chloride) 51 mls @ 153 mls/hr IV DAILY [facility] Last Admin: 07/28/18 09:13 Dose: 153 mls/hr Insulin Human Lispro (Humalog Med) 0 units SC AC [facility]; Protocol Last Admin: 07/28/18 07:57 Dose: Not Given Insulin Human NPH (Humulin N) 10 units SC ACB [facility] Last Admin: 07/28/18 07:58 Dose: Not Given Insulin Human NPH (Humulin N) 10 units SC DAILY@1745 [facility] Last Admin: 07/27/18 18:22 Dose: 10 unit Lactic Acid (Lac-Hydrin 12% Cream (140 G)) 0 ea TOP DAILY [facility] Last Admin: 07/28/18 09:08 Dose: 1 applic Levalbuterol HCl (Xopenex) 0.63 mg IH [id number] [facility] Last Admin: 07/28/18 07:34 Dose: Not Given Levothyroxine Sodium (Synthroid) 50 mcg PO 0600 [facility] Last Admin: 07/28/18 06:10 Dose: 50 mcg Lidocaine (Lidoderm) 1 ea TD DAILY [facility] Last Admin: 07/28/18 09:09 Dose: 1 ea Metoprolol Tartrate (Lopressor) 25 mg PO BRKDIN [facility] Last Admin: 07/28/18 07:56 Dose: 25 mg Midodrine (Proamatine) 10 mg PO TID [facility] Last Admin: 07/28/18 09:07 Dose: 10 mg Ondansetron HCl (Zofran Inj) 4 mg IVP Q4H PRN PRN Reason: Nausea/Vomiting Pantoprazole Sodium (Protonix Ec Tab) 40 mg PO Q12 [facility] Last Admin: 07/28/18 09:08 Dose: 40 mg Rifaximin (Xifaxan) 550 mg PO BID [facility]; Protocol Last Admin: 07/28/18 09:08 Dose: 550 mg Sennosides (Senokot Tab) 17.2 mg PO HS [facility] Last Admin: 07/27/18 21:27 Dose: 17.2 mg Sevelamer HCl (Renagel) 800 mg PO TID [facility] Last Admin: 07/28/18 09:06 Dose: 800 mg Vitamin B Complex/Vit C/Folic Acid (Nephro-Jose Miguel) 1 tab PO DAILY [facility] Last Admin: 07/28/18 09:07 Dose: 1 tab - Labs Labs: 07/28/18 05:08 07/28/18 05:08 PT 14.6 SECONDS (9.4-12.5) H 07/25/18 09:40 INR 1.29 07/25/18 09:40 APTT 28.2 Seconds (26.9-38.3) 07/25/18 09:40 - Constitutional Appears: Well - Head Exam Head Exam: ATRAUMATIC, NORMAL INSPECTION, NORMOCEPHALIC - Eye Exam Eye Exam: EOMI, Normal appearance, PERRL Pupil Exam: NORMAL ACCOMODATION, PERRL - ENT Exam ENT Exam: Mucous Membranes Moist, Normal Exam - Neck Exam Neck Exam: Full ROM, Normal Inspection. absent: Lymphadenopathy - Respiratory Exam Respiratory Exam: Clear to Ausculation Bilateral, NORMAL BREATHING PATTERN - Cardiovascular Exam Cardiovascular Exam: REGULAR RHYTHM, +S1, +S2. absent: Murmur - GI/Abdominal Exam GI & Abdominal Exam: Soft, Normal Bowel Sounds. absent: Tenderness - Extremities Exam Extremities Exam: Full ROM, Normal Capillary Refill, Normal Inspection. absent: Joint Swelling, Pedal Edema - Back Exam Back Exam: NORMAL INSPECTION - Neurological Exam Neurological Exam: Alert, Awake, CN II-XII Intact, Normal Gait, Oriented x3 - Psychiatric Exam Psychiatric exam: Normal Affect, Normal Mood - Skin Skin Exam: Dry, Intact, Normal Color, Warm Assessment and Plan - Assessment and Plan (Free Text) Assessment: Patient is a 67 F with a past medical history of CAD s/p CABG and 5 stents, ESRD on HD (Tuesday, , Tuesday), hypertension, hypothyroidism, diabetes mellitus presenting with altered mental status. Unable to obtain history of when her last dialysis session was. Electrolytes are normal, but patient has a severe respiratory alkalosis with lactic acid. Chest XR reveals pulmonary vascular congestion. Recent ECHO from May 2018 shows severe TR but normal EF. RVSP was 19, but read as underestimation. Plan AMS, possibly 2/2 infection VS respiratory alkalosis VS lactic acidosis VS hepatic encephalopathy Etiology unclear at this point, as Head CT negative and no apparent electrolyte abnormalities aside from hypermagnesemia. Random glucose was normal. BUN was not severely elevated. However, Ammonia was elevated @ 125. Today, s/p lactulose and Rifaximin, patient's ammonia has come to 45. Per ID: no apparent sign of infxn, will give doxy, merrem, vanc, and acyclovir. Per Neuro: Xifaxan 550 BID, rpt ammonia daily; thiamine 100 daily. HCV is reactive right now. Ammonia level has now normalized (07/28/18). Will continue to follow it. - Aspiration, Seizure, Fall precautions; Neurochecks; HOB 45 degrees - Daily ammonia levels - Continue Doxy - Lactulose [place] and Rifaximin BID for today; will reassess tomorrow - NPO diet - GI Consultation: Dr. Terry - ID Consultation: Dr. Whitt - Nephro Consultation: Dr. Malone - Neuro consulation: Dr. Dorman - Cardiology consultation: Dr. Berman - Psychiatry consultation: Dr. Crowder - ICU Consultation: Dr. Alford ESRD - Nephrology consulted - HD tomorrow per schedule - Replete electrolytes as needed - Continue with renagel, cinacalcet Anemia of CKD Hgb below goal in CKD at 9.7 (goal of 10-11) - Dose aranesp per nephro CKD Mineral Disorder - Continue with phoslo Coronary Artery Disease - Cardiology consulted; continue home meds Hypothyroidism - Continue home meds Hyperlipidemia - Continue home meds DM -ISS-low with fingerstick ACHS <Jimy Simeon U - Last Filed: 07/31/18 10:37> Objective - Vital Signs/Intake and Output Vital Signs (last 24 hours): Temp Pulse Resp BP Pulse Ox 97.2 F L 77 20 104/55 L 95 07/30/18 18:00 07/31/18 09:02 07/30/18 18:00 07/31/18 09:02 07/30/18 18:00 Intake and Output: 07/31/18 07/31/18 06:59 18:59 Intake Total 180 Output Total 1 Balance 179 - Medications Medications: Current Medications Acetaminophen (Tylenol 325mg Tab) 650 mg PO Q6 PRN PRN Reason: TEMP>=99.5F Last Admin: 07/30/18 01:16 Dose: 650 mg Acetaminophen (Tylenol 650 Mg Supp) 650 mg RC Q6H PRN PRN Reason: TEMP>=99.5F Albumin Human (Albumin Human 25% (12.5 Gm/50 Ml)) 25 gm IV TTS PRN PRN Reason: Other Aspirin (Aspirin Chewable) 81 mg PO DAILY [facility] Last Admin: 07/31/18 10:26 Dose: 81 mg Atorvastatin Calcium (Lipitor) 80 mg PO HS [facility] Last Admin: 07/30/18 21:31 Dose: 80 mg Cinacalcet (Sensipar) 30 mg PO DIN [facility] Last Admin: 07/30/18 18:48 Dose: 30 mg Darbepoetin Glenn (Aranesp) 60 mcg IVP QWK [facility] Last Admin: 07/25/18 15:30 Dose: 60 mcg Dextrose (Dextrose 50% Inj) 0 ml IV STAT PRN; Protocol PRN Reason: Hypoglycemia Protocol Diphenhydramine HCl (Benadryl Maximum Strength 1%) 1 ea TOP Q6H PRN PRN Reason: Itching / Pruritus Last Admin: 07/30/18 11:20 Dose: 1 applic Dextrose (Dextrose 5% In Water 1000 Ml) 1,000 mls @ 0 mls/hr IV .Q0M PRN; Protocol PRN Reason: Hypoglycemia Protocol Thiamine HCl 100 mg/ Sodium (Chloride) 51 mls @ 153 mls/hr IV DAILY [facility] Last Admin: 07/31/18 10:28 Dose: 153 mls/hr Insulin Human Lispro (Humalog Med) 0 units SC AC [facility]; Protocol Last Admin: 07/31/18 08:50 Dose: 1 u Insulin Human NPH (Humulin N) 10 units SC ACB [facility] Last Admin: 07/31/18 08:49 Dose: 10 units Insulin Human NPH (Humulin N) 10 units SC DAILY@1745 [facility] Last Admin: 07/30/18 17:26 Dose: Not Given Lactic Acid (Lac-Hydrin 12% Cream (140 G)) 0 ea TOP DAILY [facility] Last Admin: 07/31/18 10:26 Dose: 1 applic Lactulose (Enulose) 20 gm PO BID [facility] Last Admin: 07/31/18 10:26 Dose: 20 gm Levalbuterol HCl (Xopenex) 0.63 mg IH [id number] [facility] Last Admin: 07/31/18 08:02 Dose: 0.63 mg Levothyroxine Sodium (Synthroid) 50 mcg PO 0600 [facility] Last Admin: 07/31/18 05:25 Dose: 50 mcg Lidocaine (Lidoderm) 1 ea TD DAILY [facility] Last Admin: 07/31/18 10:27 Dose: 1 ea Lidocaine (Lidoderm) 1 ea TD DAILY [facility] Last Admin: 07/31/18 10:27 Dose: 1 ea Metoprolol Tartrate (Lopressor) 25 mg PO BRKDIN [facility] Last Admin: 07/31/18 09:02 Dose: Not Given Midodrine (Proamatine) 10 mg PO TID [facility] Last Admin: 07/31/18 10:27 Dose: 10 mg Mupirocin (Bactroban Ointment) 0 gm TOP BID [facility] Last Admin: 07/31/18 10:26 Dose: 1 applic Ondansetron HCl (Zofran Inj) 4 mg IVP Q4H PRN PRN Reason: Nausea/Vomiting Pantoprazole Sodium (Protonix Ec Tab) 40 mg PO Q12 [facility] Last Admin: 07/31/18 10:28 Dose: 40 mg Quetiapine Fumarate (Seroquel) 12.5 mg PO HS PRN; Protocol PRN Reason: Agitation Last Admin: 07/30/18 21:31 Dose: 12.5 mg Sennosides (Senokot Tab) 17.2 mg PO HS [facility] Last Admin: 07/30/18 21:32 Dose: Not Given Sevelamer HCl (Renagel) 800 mg PO TID [facility] Last Admin: 07/31/18 10:28 Dose: 800 mg Tramadol HCl (Ultram) 50 mg PO Q12H PRN PRN Reason: Pain, moderate (4-7) Last Admin: 07/31/18 10:04 Dose: 50 mg Vitamin B Complex/Vit C/Folic Acid (Nephro-Jose Miguel) 1 tab PO DAILY [facility] Last Admin: 07/31/18 10:27 Dose: 1 tab - Labs Labs: 07/30/18 11:20 07/30/18 11:20 PT 14.6 SECONDS (9.4-12.5) H 07/25/18 09:40 INR 1.29 07/25/18 09:40 APTT 28.2 Seconds (26.9-38.3) 07/25/18 09:40 Attending/Attestation - Attestation I have personally seen and examined this patient.: Yes I have fully participated in the care of the patient.: Yes I have reviewed all pertinent clinical information, including history, physical exam and plan: Yes Notes (Text): Please see/read my dictated notes.
--- NOTE | 2018-07-28 10:19 | CP.PCM.PN ---
<Adam Beth - Last Filed: 07/28/18 10:16> Subjective - Date & Time of Evaluation Date of Evaluation: 07/28/18 Time of Evaluation: 09:10 - Subjective Subjective: Adam Beth D.O. PGY-3, Internal Medicine Resident, Infectious Disease Progress Note 67-year-old female with a past medical history of renal failure on hemodialysis, coronary artery disease, hypothyroidism, diabetes, cirrhosis of the liver, pacemaker insertion who presents for complaints of altered mental status. Infectious disease consultation was requested. Patient was seen and examined at bedside. Looking better, wearing wig. No acute complaints. Agitated overnight and needed ativan. Objective - Vital Signs/Intake and Output Vital Signs (last 24 hours): Temp Pulse Resp BP Pulse Ox 98.6 F 79 20 120/53 L 100 07/28/18 03:51 07/28/18 07:56 07/28/18 03:51 07/28/18 07:56 07/28/18 03:51 Intake and Output: 07/28/18 07/28/18 06:59 18:59 Intake Total 480 Balance 480 - Medications Medications: Current Medications Acetaminophen (Tylenol 325mg Tab) 650 mg PO Q6 PRN PRN Reason: TEMP>=99.5F Last Admin: 07/26/18 12:30 Dose: 650 mg Acetaminophen (Tylenol 650 Mg Supp) 650 mg RC Q6H PRN PRN Reason: TEMP>=99.5F Albumin Human (Albumin Human 25% (12.5 Gm/50 Ml)) 25 gm IV TTS PRN PRN Reason: Other Aspirin (Aspirin Chewable) 81 mg PO DAILY [facility] Last Admin: 07/28/18 09:08 Dose: 81 mg Atorvastatin Calcium (Lipitor) 80 mg PO HS [facility] Last Admin: 07/27/18 21:27 Dose: 80 mg Cinacalcet (Sensipar) 30 mg PO DIN [facility] Last Admin: 07/27/18 18:23 Dose: 30 mg Darbepoetin Glenn (Aranesp) 60 mcg IVP QWK [facility] Last Admin: 07/25/18 15:30 Dose: 60 mcg Dextrose (Dextrose 50% Inj) 0 ml IV STAT PRN; Protocol PRN Reason: Hypoglycemia Protocol Diphenhydramine HCl (Benadryl Maximum Strength 1%) 1 ea TOP Q6H PRN PRN Reason: Itching / Pruritus Last Admin: 07/26/18 16:56 Dose: 1 applic Dextrose (Dextrose 5% In Water 1000 Ml) 1,000 mls @ 0 mls/hr IV .Q0M PRN; P rotocol PRN Reason: Hypoglycemia Protocol Thiamine HCl 100 mg/ Sodium (Chloride) 51 mls @ 153 mls/hr IV DAILY [facility] Last Admin: 07/28/18 09:13 Dose: 153 mls/hr Insulin Human Lispro (Humalog Med) 0 units SC AC [facility]; Protocol Last Admin: 07/28/18 07:57 Dose: Not Given Insulin Human NPH (Humulin N) 10 units SC ACB [facility] Last Admin: 07/28/18 07:58 Dose: Not Given Insulin Human NPH (Humulin N) 10 units SC DAILY@1745 [facility] Last Admin: 07/27/18 18:22 Dose: 10 unit Lactic Acid (Lac-Hydrin 12% Cream (140 G)) 0 ea TOP DAILY [facility] Last Admin: 07/28/18 09:08 Dose: 1 applic Levalbuterol HCl (Xopenex) 0.63 mg IH [id number] [facility] Last Admin: 07/28/18 07:34 Dose: Not Given Levothyroxine Sodium (Synthroid) 50 mcg PO 0600 [facility] Last Admin: 07/28/18 06:10 Dose: 50 mcg Lidocaine (Lidoderm) 1 ea TD DAILY [facility] Last Admin: 07/28/18 09:09 Dose: 1 ea Metoprolol Tartrate (Lopressor) 25 mg PO BRKDIN [facility] Last Admin: 07/28/18 07:56 Dose: 25 mg Midodrine (Proamatine) 10 mg PO TID [facility] Last Admin: 07/28/18 09:07 Dose: 10 mg Ondansetron HCl (Zofran Inj) 4 mg IVP Q4H PRN PRN Reason: Nausea/Vomiting Pantoprazole Sodium (Protonix Ec Tab) 40 mg PO Q12 [facility] Last Admin: 07/28/18 09:08 Dose: 40 mg Rifaximin (Xifaxan) 550 mg PO BID [facility]; Protocol Last Admin: 07/28/18 09:08 Dose: 550 mg Sennosides (Senokot Tab) 17.2 mg PO HS [facility] Last Admin: 07/27/18 21:27 Dose: 17.2 mg Sevelamer HCl (Renagel) 800 mg PO TID [facility] Last Admin: 07/28/18 09:06 Dose: 800 mg Vitamin B Complex/Vit C/Folic Acid (Nephro-Jose Miguel) 1 tab PO DAILY [facility] Last Admin: 07/28/18 09:07 Dose: 1 tab - Labs Labs: 07/28/18 05:08 07/28/18 05:08 PT 14.6 SECONDS (9.4-12.5) H 07/25/18 09:40 INR 1.29 07/25/18 09:40 APTT 28.2 Seconds (26.9-38.3) 07/25/18 09:40 - Constitutional Appears: Non-toxic, No Acute Distress - Head Exam Head Exam: ATRAUMATIC, NC - Eye Exam Eye Exam: EOMI. absent: Scleral icterus - ENT Exam ENT Exam: Mucous Membranes Moist - Neck Exam Neck Exam: Normal Inspection, Soft, Supple - Respiratory Exam Respiratory Exam: absent: Rhonchi, Wheezes - Cardiovascular Exam Cardiovascular Exam: +S1, +S2 - GI/Abdominal Exam GI & Abdominal Exam: Soft. absent: Tenderness - Extremities Exam Extremities Exam: absent: Tenderness - Neurological Exam Neurological Exam: Alert, Awake, confused, nonfocal - Skin Skin Exam: Dry, Warm Assessment and Plan - Assessment and Plan (Free Text) Assessment: 67-year-old female with a past medical history of renal failure on hemodialysis, coronary artery disease, hypothyroidism, diabetes, cirrhosis of the liver, pacemaker insertion who presents for complaints of altered mental status. Plan: Altered mental status Cirrhosis ESRD on HD CAD s/p CABG Likely 2/2 hepatic encephalopathy with improvements on lactulose/xifaxan Monitoring off ab Afebrile No leukocytosis BCXs negative 2/2 day 3 We will follow Patient was seen and examined and case will be discussed with attending patsy bell Thank you for the pleasure participating in the care of this patient <Bill Whitt - Last Filed: 07/28/18 12:48> Objective - Vital Signs/Intake and Output Vital Signs (last 24 hours): Temp Pulse Resp BP Pulse Ox 97.6 F 64 20 120/53 L 98 07/28/18 12:00 07/28/18 12:00 07/28/18 12:00 07/28/18 07:56 07/28/18 12:00 Intake and Output: 07/28/18 07/28/18 06:59 18:59 Intake Total 480 Balance 480 - Medications Medications: Current Medications Acetaminophen (Tylenol 325mg Tab) 650 mg PO Q6 PRN PRN Reason: TEMP>=99.5F Last Admin: 07/26/18 12:30 Dose: 650 mg Acetaminophen (Tylenol 650 Mg Supp) 650 mg RC Q6H PRN PRN Reason: TEMP>=99.5F Albumin Human (Albumin Human 25% (12.5 Gm/50 Ml)) 25 gm IV TTS PRN PRN Reason: Other Aspirin (Aspirin Chewable) 81 mg PO DAILY [facility] Last Admin: 07/28/18 09:08 Dose: 81 mg Atorvastatin Calcium (Lipitor) 80 mg PO HS [facility] Last Admin: 07/27/18 21:27 Dose: 80 mg Cinacalcet (Sensipar) 30 mg PO DIN [facility] Last Admin: 07/27/18 18:23 Dose: 30 mg Darbepoetin Glenn (Aranesp) 60 mcg IVP QWK [facility] Last Admin: 07/25/18 15:30 Dose: 60 mcg Dextrose (Dextrose 50% Inj) 0 ml IV STAT PRN; Protocol PRN Reason: Hypoglycemia Protocol Diphenhydramine HCl (Benadryl Maximum Strength 1%) 1 ea TOP Q6H PRN PRN Reason: Itching / Pruritus Last Admin: 07/26/18 16:56 Dose: 1 applic Dextrose (Dextrose 5% In Water 1000 Ml) 1,000 mls @ 0 mls/hr IV .Q0M PRN; Protocol PRN Reason: Hypoglycemia Protocol Thiamine HCl 100 mg/ Sodium (Chloride) 51 mls @ 153 mls/hr IV DAILY [facility] Last Admin: 07/28/18 09:13 Dose: 153 mls/hr Insulin Human Lispro (Humalog Med) 0 units SC AC [facility]; Protocol Last Admin: 07/28/18 12:12 Dose: Not Given Insulin Human NPH (Humulin N) 10 units SC ACB [facility] Last Admin: 07/28/18 07:58 Dose: Not Given Insulin Human NPH (Humulin N) 10 units SC DAILY@1745 [facility] Last Admin: 07/27/18 18:22 Dose: 10 unit Lactic Acid (Lac-Hydrin 12% Cream (140 G)) 0 ea TOP DAILY [facility] Last Admin: 07/28/18 09:08 Dose: 1 applic Levalbuterol HCl (Xopenex) 0.63 mg IH [id number] [facility] Last Admin: 07/28/18 07:34 Dose: Not Given Levothyroxine Sodium (Synthroid) 50 mcg PO 0600 [facility] Last Admin: 07/28/18 06:10 Dose: 50 mcg Lidocaine (Lidoderm) 1 ea TD DAILY [facility] Last Admin: 07/28/18 09:09 Dose: 1 ea Metoprolol Tartrate (Lopressor) 25 mg PO BRKDIN [facility] Last Admin: 07/28/18 07:56 Dose: 25 mg Midodrine (Proamatine) 10 mg PO TID [facility] Last Admin: 07/28/18 09:07 Dose: 10 mg Ondansetron HCl (Zofran Inj) 4 mg IVP Q4H PRN PRN Reason: Nausea/Vomiting Pantoprazole Sodium (Protonix Ec Tab) 40 mg PO Q12 [facility] Last Admin: 07/28/18 09:08 Dose: 40 mg Rifaximin (Xifaxan) 550 mg PO BID [facility]; Protocol Last Admin: 07/28/18 09:08 Dose: 550 mg Sennosides (Senokot Tab) 17.2 mg PO HS [facility] Last Admin: 07/27/18 21:27 Dose: 17.2 mg Sevelamer HCl (Renagel) 800 mg PO TID [facility] Last Admin: 07/28/18 09:06 Dose: 800 mg Vitamin B Complex/Vit C/Folic Acid (Nephro-Jose Miguel) 1 tab PO DAILY [facility] Last Admin: 07/28/18 09:07 Dose: 1 tab - Labs Labs: 07/28/18 05:08 07/28/18 05:08 PT 14.6 SECONDS (9.4-12.5) H 07/25/18 09:40 INR 1.29 07/25/18 09:40 APTT 28.2 Seconds (26.9-38.3) 07/25/18 09:40 Attending/Attestation - Attestation I have personally seen and examined this patient.: Yes I have fully participated in the care of the patient.: Yes I have reviewed all pertinent clinical information, including history, physical exam and plan: Yes
--- NOTE | 2018-07-28 11:01 | PN ---
DATE: 07/28/2018 SUBJECTIVE: The patient is lying in bed, awake, alert. She denies any abdominal pain. She continues to complain of low back pain. OBJECTIVE: VITAL SIGNS: Reveal temperature of 98.6, blood pressure 120/53, heart rate 79. HEENT: Reveal sclerae to be white. Conjunctivae pink. NECK: Supple. CHEST: Reveal distant breath sounds. HEART: Reveals regular rate and rhythm. ABDOMEN: Obese, soft, nontender. EXTREMITIES: Show no edema. LABORATORY DATA: Reveal white blood cell count 5.2, hemoglobin 9.7, platelet count 96,000. Chemistries reveal no new laboratory data. Her serum ammonia from yesterday 16. IMPRESSION: This is a 67-year-old female admitted to the hospital with altered mental status found to have an elevated ammonia level in the setting of cirrhosis of the liver with hepatitis C antibody positivity. The patient responded to lactulose enemas and Xifaxan. She denies any history of intravenous drug user, blood transfusions. She also has a history of recent non-ST elevation myocardial infarction and end-stage renal disease on hemodialysis. RECOMMENDATIONS: 1. Await hepatitis C RNA quantitative. 2. Continue lactulose 20 g twice a day and Xifaxan 550 mg twice a day. Angelito Terry MD
--- NOTE | 2018-07-28 12:34 | CP.PCM.PN ---
<Evelyn Whitehead - Last Filed: 07/28/18 12:30> Subjective - Date & Time of Evaluation Date of Evaluation: 07/28/18 Time of Evaluation: 12:30 - Subjective Subjective: Podiatry Consult Note: Dr. Holt Patient seen and evaluated this AM with Dr. Holt. Patient states that her b/l lower extremities are dry and making her uncomfortable today. She denies any new pedal complaints at this time. Denies nausea/vomiting/fever. Objective - Vital Signs/Intake and Output Vital Signs (last 24 hours): Temp Pulse Resp BP Pulse Ox 98.1 F 70 18 120/53 L 96 07/28/18 08:00 07/28/18 10:00 07/28/18 08:00 07/28/18 07:56 07/28/18 08:00 Intake and Output: 07/28/18 07/28/18 06:59 18:59 Intake Total 480 Balance 480 - Medications Medications: Current Medications Acetaminophen (Tylenol 325mg Tab) 650 mg PO Q6 PRN PRN Reason: TEMP>=99.5F Last Admin: 07/26/18 12:30 Dose: 650 mg Acetaminophen (Tylenol 650 Mg Supp) 650 mg RC Q6H PRN PRN Reason: TEMP>=99.5F Albumin Human (Albumin Human 25% (12.5 Gm/50 Ml)) 25 gm IV TTS PRN PRN Reason: Other Aspirin (Aspirin Chewable) 81 mg PO DAILY [facility] Last Admin: 07/28/18 09:08 Dose: 81 mg Atorvastatin Calcium (Lipitor) 80 mg PO HS [facility] Last Admin: 07/27/18 21:27 Dose: 80 mg Cinacalcet (Sensipar) 30 mg PO DIN [facility] Last Admin: 07/27/18 18:23 Dose: 30 mg Darbepoetin Glenn (Aranesp) 60 mcg IVP QWK [facility] Last Admin: 07/25/18 15:30 Dose: 60 mcg Dextrose (Dextrose 50% Inj) 0 ml IV STAT PRN; Protocol PRN Reason: Hypoglycemia Protocol Diphenhydramine HCl (Benadryl Maximum Strength 1%) 1 ea TOP Q6H PRN PRN Reason: Itching / Pruritus Last Admin: 07/26/18 16:56 Dose: 1 applic Dextrose (Dextrose 5% In Water 1000 Ml) 1,000 mls @ 0 mls/hr IV .Q0M PRN; Protocol PRN Reason: Hypoglycemia Protocol Thiamine HCl 100 mg/ Sodium (Chloride) 51 mls @ 153 mls/hr IV DAILY [facility] Last Admin: 07/28/18 09:13 Dose: 153 mls/hr Insulin Human Lispro (Humalog Med) 0 units SC AC [facility]; Protocol Last Admin: 07/28/18 12:12 Dose: Not Given Insulin Human NPH (Humulin N) 10 units SC ACB [facility] Last Admin: 07/28/18 07:58 Dose: Not Given Insulin Human NPH (Humulin N) 10 units SC DAILY@1745 [facility] Last Admin: 07/27/18 18:22 Dose: 10 unit Lactic Acid (Lac-Hydrin 12% Cream (140 G)) 0 ea TOP DAILY [facility] Last Admin: 07/28/18 09:08 Dose: 1 applic Levalbuterol HCl (Xopenex) 0.63 mg IH [id number] [facility] Last Admin: 07/28/18 07:34 Dose: Not Given Levothyroxine Sodium (Synthroid) 50 mcg PO 0600 [facility] Last Admin: 07/28/18 06:10 Dose: 50 mcg Lidocaine (Lidoderm) 1 ea TD DAILY [facility] Last Admin: 07/28/18 09:09 Dose: 1 ea Metoprolol Tartrate (Lopressor) 25 mg PO BRKDIN [facility] Last Admin: 07/28/18 07:56 Dose: 25 mg Midodrine (Proamatine) 10 mg PO TID [facility] Last Admin: 07/28/18 09:07 Dose: 10 mg Ondansetron HCl (Zofran Inj) 4 mg IVP Q4H PRN PRN Reason: Nausea/Vomiting Pantoprazole Sodium (Protonix Ec Tab) 40 mg PO Q12 [facility] Last Admin: 07/28/18 09:08 Dose: 40 mg Rifaximin (Xifaxan) 550 mg PO BID [facility]; Protocol Last Admin: 07/28/18 09:08 Dose: 550 mg Sennosides (Senokot Tab) 17.2 mg PO HS [facility] Last Admin: 07/27/18 21:27 Dose: 17.2 mg Sevelamer HCl (Renagel) 800 mg PO TID [facility] Last Admin: 07/28/18 09:06 Dose: 800 mg Vitamin B Complex/Vit C/Folic Acid (Nephro-Jose Miguel) 1 tab PO DAILY [facility] Last Admin: 07/28/18 09:07 Dose: 1 tab - Labs Labs: 07/28/18 05:08 07/28/18 05:08 PT 14.6 SECONDS (9.4-12.5) H 07/25/18 09:40 INR 1.29 07/25/18 09:40 APTT 28.2 Seconds (26.9-38.3) 07/25/18 09:40 - Constitutional Appears: Non-toxic, No Acute Distress - Head Exam Head Exam: ATRAUMATIC, NORMOCEPHALIC - Extremities Exam Additional comments: Vasc: DP and PT pulses nonpalpable. CFT <3 seconds to digits. Temperature gradient cool to cool. +1 pitting edema present b/l. Ortho: No pain with palpation of b/l lower extremities, partial 4th and 5th ray amputations LLE. Neuro: Gross sensation diminished, protective sensation absent Derm: Significant xerosis appreciated to b/l feet. No open lesions at this time. No erythema, no xerois, no clinical signs of infection - Neurological Exam Neurological Exam: Alert, Awake, Oriented x3 - Psychiatric Exam Psychiatric exam: Normal Affect, Normal Mood Assessment and Plan - Assessment and Plan (Free Text) Assessment: 67F with b/l xerosis and PVD Plan: Patient seen and evaluated with Dr. Awad NEETU/PVR ordered; pending Ammonium lactate ordered to b/l feet, apply daily Educated patient on importance of checking feet daily for any signs of infection or ulceration Will continue to follow <Alex Holt - Last Filed: 07/28/18 18:24> Objective - Vital Signs/Intake and Output Vital Signs (last 24 hours): Temp Pulse Resp BP Pulse Ox 97.6 F 67 18 134/76 98 07/28/18 16:00 07/28/18 18:00 07/28/18 18:00 07/28/18 17:54 07/28/18 12:00 Intake and Output: 07/28/18 07/28/18 06:59 18:59 Intake Total 480 520 Balance 480 520 - Medications Medications: Current Medications Acetaminophen (Tylenol 325mg Tab) 650 mg PO Q6 PRN PRN Reason: TEMP>=99.5F Last Admin: 07/26/18 12:30 Dose: 650 mg Acetaminophen (Tylenol 650 Mg Supp) 650 mg RC Q6H PRN PRN Reason: TEMP>=99.5F Albumin Human (Albumin Human 25% (12.5 Gm/50 Ml)) 25 gm IV TTS PRN PRN Reason: Other Aspirin (Aspirin Chewable) 81 mg PO DAILY [facility] Last Admin: 07/28/18 09:08 Dose: 81 mg Atorvastatin Calcium (Lipitor) 80 mg PO HS [facility] Last Admin: 07/27/18 21:27 Dose: 80 mg Cinacalcet (Sensipar) 30 mg PO DIN [facility] Last Admin: 07/28/18 17:29 Dose: 30 mg Darbepoetin Glenn (Aranesp) 60 mcg IVP QWK [facility] Last Admin: 07/25/18 15:30 Dose: 60 mcg Dextrose (Dextrose 50% Inj) 0 ml IV STAT PRN; Protocol PRN Reason: Hypoglycemia Protocol Diphenhydramine HCl (Benadryl Maximum Strength 1%) 1 ea TOP Q6H PRN PRN Reason: Itching / Pruritus Last Admin: 07/26/18 16:56 Dose: 1 applic Dextrose (Dextrose 5% In Water 1000 Ml) 1,000 mls @ 0 mls/hr IV .Q0M PRN; Protocol PRN Reason: Hypoglycemia Protocol Thiamine HCl 100 mg/ Sodium (Chloride) 51 mls @ 153 mls/hr IV DAILY [facility] Last Admin: 07/28/18 09:13 Dose: 153 mls/hr Insulin Human Lispro (Humalog Med) 0 units SC AC [facility]; Protocol Last Admin: 07/28/18 17:30 Dose: Not Given Insulin Human NPH (Humulin N) 10 units SC ACB [facility] Last Admin: 07/28/18 07:58 Dose: Not Given Insulin Human NPH (Humulin N) 10 units SC DAILY@1745 [facility] Last Admin: 07/28/18 17:28 Dose: 10 unit Lactic Acid (Lac-Hydrin 12% Cream (140 G)) 0 ea TOP DAILY [facility] Last Admin: 07/28/18 09:08 Dose: 1 applic Levalbuterol HCl (Xopenex) 0.63 mg IH [id number] [facility] Last Admin: 07/28/18 14:12 Dose: Not Given Levothyroxine Sodium (Synthroid) 50 mcg PO 0600 [facility] Last Admin: 07/28/18 06:10 Dose: 50 mcg Lidocaine (Lidoderm) 1 ea TD DAILY [facility] Last Admin: 07/28/18 09:09 Dose: 1 ea Lidocaine (Lidoderm) 1 ea TD DAILY [facility] Last Admin: 07/28/18 15:00 Dose: 1 ea Metoprolol Tartrate (Lopressor) 25 mg PO BRKDIN [facility] Last Admin: 07/28/18 17:33 Dose: 25 mg Midodrine (Proamatine) 10 mg PO TID [facility] Last Admin: 07/28/18 17:29 Dose: 10 mg Ondansetron HCl (Zofran Inj) 4 mg IVP Q4H PRN PRN Reason: Nausea/Vomiting Pantoprazole Sodium (Protonix Ec Tab) 40 mg PO Q12 [facility] Last Admin: 07/28/18 09:08 Dose: 40 mg Quetiapine Fumarate (Seroquel) 12.5 mg PO HS PRN; Protocol PRN Reason: Agitation Rifaximin (Xifaxan) 550 mg PO BID [facility]; Protocol Last Admin: 07/28/18 09:08 Dose: 550 mg Sennosides (Senokot Tab) 17.2 mg PO HS [facility] Last Admin: 07/27/18 21:27 Dose: 17.2 mg Sevelamer HCl (Renagel) 800 mg PO TID [facility] Last Admin: 07/28/18 17:30 Dose: 800 mg Vitamin B Complex/Vit C/Folic Acid (Nephro-Jose Miguel) 1 tab PO DAILY [facility] Last Admin: 07/28/18 09:07 Dose: 1 tab - Labs Labs: 07/28/18 05:08 07/28/18 05:08 PT 14.6 SECONDS (9.4-12.5) H 07/25/18 09:40 INR 1.29 07/25/18 09:40 APTT 28.2 Seconds (26.9-38.3) 07/25/18 09:40 Attending/Attestation - Attestation I have personally seen and examined this patient.: Yes I have fully participated in the care of the patient.: Yes I have reviewed all pertinent clinical information, including history, physical exam and plan: Yes
--- NOTE | 2018-07-28 12:38 | PN ---
DATE: 07/28/2018 SUBJECTIVE: The patient denies chest pain. PHYSICAL EXAMINATION: VITAL SIGNS: Blood pressure 120/53, the heart rate is in the 70s. NECK: Negative JVD. LUNGS: Without rales. HEART: Reveal S1, S2. EXTREMITIES: Without edema. LABORATORY DATA: Hemoglobin is 9.7, BUN and creatinine is 20 and 4.6 with a glucose of 104. IMPRESSION: 1. End-stage renal disease. 2. Stable angina. 3. Coronary artery disease. 4. History of coronary artery bypass surgery. 5. Diabetes mellitus. 6. History of pacemaker placement. PLAN: Given these findings, the patient's cardiac status is at its baseline. There are no acute issues at this time. We will discontinue telemetry today. Chan Berman MD
--- NOTE | 2018-07-28 13:37 | CP.PCM.APN ---
Subjective - Date & Time of Evaluation Date of Evaluation: 07/28/18 Time of Evaluation: 12:25 - Subjective Subjective: Pt. seen and examined, oob sitting in chair, confused to place, complaints of lower back pain, currently eating lunch. Objective - Vital Signs/Intake and Output Vital Signs (last 24 hours): Temp Pulse Resp BP Pulse Ox 97.6 F 64 20 120/53 L 98 07/28/18 12:00 07/28/18 12:00 07/28/18 12:00 07/28/18 07:56 07/28/18 12:00 Intake and Output: 07/28/18 07/28/18 06:59 18:59 Intake Total 480 Balance 480 - Medications Medications: Current Medications Acetaminophen (Tylenol 325mg Tab) 650 mg PO Q6 PRN PRN Reason: TEMP>=99.5F Last Admin: 07/26/18 12:30 Dose: 650 mg Acetaminophen (Tylenol 650 Mg Supp) 650 mg RC Q6H PRN PRN Reason: TEMP>=99.5F Albumin Human (Albumin Human 25% (12.5 Gm/50 Ml)) 25 gm IV TTS PRN PRN Reason: Other Aspirin (Aspirin Chewable) 81 mg PO DAILY [facility] Last Admin: 07/28/18 09:08 Dose: 81 mg Atorvastatin Calcium (Lipitor) 80 mg PO HS [facility] Last Admin: 07/27/18 21:27 Dose: 80 mg Cinacalcet (Sensipar) 30 mg PO DIN [facility] Last Admin: 07/27/18 18:23 Dose: 30 mg Darbepoetin Glenn (Aranesp) 60 mcg IVP QWK [facility] Last Admin: 07/25/18 15:30 Dose: 60 mcg Dextrose (Dextrose 50% Inj) 0 ml IV STAT PRN; Protocol PRN Reason: Hypoglycemia Protocol Diphenhydramine HCl (Benadryl Maximum Strength 1%) 1 ea TOP Q6H PRN PRN Reason: Itching / Pruritus Last Admin: 07/26/18 16:56 Dose: 1 applic Dextrose (Dextrose 5% In Water 1000 Ml) 1,000 mls @ 0 mls/hr IV .Q0M PRN; Protocol PRN Reason: Hypoglycemia Protocol Thiamine HCl 100 mg/ Sodium (Chloride) 51 mls @ 153 mls/hr IV DAILY [facility] Last Admin: 07/28/18 09:13 Dose: 153 mls/hr Insulin Human Lispro (Humalog Med) 0 units SC AC [facility]; Protocol Last Admin: 07/28/18 12:12 Dose: Not Given Insulin Human NPH (Humulin N) 10 units SC ACB [facility] Last Admin: 07/28/18 07:58 Dose: Not Given Insulin Human NPH (Humulin N) 10 units SC DAILY@1745 [facility] Last Admin: 07/27/18 18:22 Dose: 10 unit Lactic Acid (Lac-Hydrin 12% Cream (140 G)) 0 ea TOP DAILY [facility] Last Admin: 07/28/18 09:08 Dose: 1 applic Levalbuterol HCl (Xopenex) 0.63 mg IH [id number] [facility] Last Admin: 07/28/18 07:34 Dose: Not Given Levothyroxine Sodium (Synthroid) 50 mcg PO 0600 [facility] Last Admin: 07/28/18 06:10 Dose: 50 mcg Lidocaine (Lidoderm) 1 ea TD DAILY [facility] Last Admin: 07/28/18 09:09 Dose: 1 ea Metoprolol Tartrate (Lopressor) 25 mg PO BRKDIN [facility] Last Admin: 07/28/18 07:56 Dose: 25 mg Midodrine (Proamatine) 10 mg PO TID [facility] Last Admin: 07/28/18 09:07 Dose: 10 mg Ondansetron HCl (Zofran Inj) 4 mg IVP Q4H PRN PRN Reason: Nausea/Vomiting Pantoprazole Sodium (Protonix Ec Tab) 40 mg PO Q12 [facility] Last Admin: 07/28/18 09:08 Dose: 40 mg Rifaximin (Xifaxan) 550 mg PO BID [facility]; Protocol Last Admin: 07/28/18 09:08 Dose: 550 mg Sennosides (Senokot Tab) 17.2 mg PO HS [facility] Last Admin: 07/27/18 21:27 Dose: 17.2 mg Sevelamer HCl (Renagel) 800 mg PO TID [facility] Last Admin: 07/28/18 09:06 Dose: 800 mg Vitamin B Complex/Vit C/Folic Acid (Nephro-Jose Miguel) 1 tab PO DAILY [facility] Last Admin: 07/28/18 09:07 Dose: 1 tab - Labs Labs: 07/28/18 05:08 07/28/18 05:08 PT 14.6 SECONDS (9.4-12.5) H 07/25/18 09:40 INR 1.29 07/25/18 09:40 APTT 28.2 Seconds (26.9-38.3) 07/25/18 09:40 - Constitutional Appears: Well, Non-toxic - Head Exam Head Exam: NORMOCEPHALIC - Eye Exam Eye Exam: Normal appearance - Neck Exam Neck Exam: Full ROM - Respiratory Exam Respiratory Exam: Clear to Ausculation Bilateral - Cardiovascular Exam Cardiovascular Exam: REGULAR RHYTHM, +S1, +S2 - GI/Abdominal Exam GI & Abdominal Exam: Soft - Rectal Exam Rectal Exam: Deferred - Exam Exam: absent: Circumcision, NORMAL INSPECTION, Scrotal Swelling, Testicular Tenderness, Uretheral Discharge, Testicular Vertical Lie, Bladder Distension External exam: absent: Ecchymosis, Erythema, Lacerations, Lesions, NORMAL EXTERNAL EXAM, Swelling Speculum exam: absent: Cervical Discharge, Erythema, Foreign Body, Laceration, NORMAL SPECULUM EXAM, Tissue, Vaginal Bleeding, Vaginal Discharge Bimanual exam: absent: Adenexal Mass, Adnexal, Cervical Motion Tendernes, NORMAL BIMANUAL EXAM, Uterine Enlargement, Uterine Tenderness - Extremities Exam Extremities Exam: Full ROM - Neurological Exam Neurological Exam: Altered - Psychiatric Exam Additional comments: pleasantly confused - Skin Skin Exam: Dry, Intact Assessment and Plan - Assessment and Plan (Free Text) Assessment: ITS Impressions Chest X-Ray 07/25/18 09:29 IMPRESSION: No active pulmonary disease. Severe cardiomegaly and pulmonary venous congestion. Head CT 07/25/18 09:30 IMPRESSION: No evidence of acute intracranial hemorrhage mass effect or midline shift. Dental findings as discussed above. Abdomen Ultrasound 07/27/18 16:06 IMPRESSION: Splenomegaly. Indeterminate 1.4 x 1.6 cm hyperechoic splenic mass. Dilated common bile duct in the setting of cholecystectomy. Echogenic right renal parenchyma may be seen in the setting of medical renal disease. Nodular hepatic contour. Heterogeneous hepatic parenchyma. Correlate clinically for cirrhosis. Assessment: 67 y/o F, with a past medical history of CAD s/p CABG and 5 stents, ESRD on HD (Tuesday, , Tuesday), hypertension, hypothyroidism, and diabetes mellitus, presents to the ED from group home via EMS for evaluation of AMS since prior to arrival. As per EMS, patient was given Bendaryl in an attempt to wear her off of percocet and subsequently became lethargic, and non-responsive admitted for further eval and treatment. Plan: 1. AMS Pt. still appears altered, with periods of confusion Likely secondary to hepatic encephalopathy, with elevated ammonia level 125 on admit. follow ammonia levels, improved, today 13. continue Xifaxin and lactulose, monitor for BMs likely secondary to meds, Percocet, Benadryl, previously received. 2. Cirrhosis likely from Hep.C, recs as per Dr. Betts, further recs per GI. . 3. HeP. C antibody positive Ultrasound pos. cirrhosis.,dilated common bile duct, splenic mass 4. S/p Code Flores, overnight patient very agitated and confused, 1:[address] further recs as per neuro. continue Thiamine, Xifaxin, lactulose. Continue to monitor clinical status and follow closely. DW with consultants, PT eval pending, for transfer to telemetry.
--- NOTE | 2018-07-28 13:42 | CP.PCM.PN ---
Subjective - Date & Time of Evaluation Date of Evaluation: 07/28/18 Time of Evaluation: 13:41 - Subjective Subjective: Nephrology Consultation Note Assessment: stable AMS ? related to pain meds/sedative and or hepatic encephalopathy as ammonia elevated: IMPROVED Hep C + with likely cirrhosis pulmonary congestion, hypokalemia Diabetic chronic Kidney Disease (E11.22) Hypertensive Chronic Kidney Disease (I12.0) End stage renal disease (N18.6) dependence on hemodialysis (Z99.2) (TTS) via AVF Anemia (D64.9), Hyperphosphatemia (E83.39), Secondary Hyperparathyroidism (E21.1), HTN (I12.0) CAD s/p CABG obesity thrombocytopenia Lytic lesions ? underlying malignancy RV dysfunction, moderate to severe MR Plan: Will plan for next dialysis as per TTS schedule. Continue with Nephrovite 1 tab/day. PRBC as needed for anemia. weekly ADAM with HD continue with phos binders as orally accepting, last Phos 3.6 maintain hemodynamic stable. resumed midodrine 10 mg TID. no on acei/arb as bp usually low. albumin prn with HD ordered Glycemic control, Dialysis consistent diet Further work up/management as per primary team Dose meds/antibiotics (if needed) for ESRD status. Avoid fleets enema/magnesium based laxatives. GI, ID Neuro and cardiology following decision for Hep C treatment per GI/ID Thanks for allowing me to participate in care of your patient. Will follow patient with you. Please call if any Qs. had d/w team Dr Amrit Malone Office: [phone] CC: AMS reason for consult: ESRD HPI:Pt is a 67 F with hx of ESRD on hemodialysis (TTS) via AVF , last dialysis Sat, chronic anemia, hyperphosphatemia, secondary hyperparathyroidism, Diabetes Mellitus, hypertension CAD s/p CABG, chronic back pain presented with complaints of AMS.Renal consult requested for ESRD management. pt had similar and recent hospitalization at [facility] [place] for same which was attributed to pain meds ROS: c/o chronic back pain. AMS much better. no SOB Physical Examination: General Appearance: in no acute respiratory distress, comfortable. on 1:1 observation Vitals reviewed and noted as below Head; Atraumatic, normocephalic ENT: no ulcers no thrush. Tongue is midline. Oropharynx: no rash or ulcers. Neck; supple no lymphadenopathy, no thyromegaly or bruit Lungs: Normal respiratory rate/effort. Breath sounds bilateral equal and clear Heart: Normal rate. s1s2 normal. No rub or gallop. Extremities: no Rt edema. No varicose veins. has chronic left leg edema Neurological: Patient is communicative . awake alert today Skin: Warm and dry. Normal turgor. No rash. Palpitation: Normal elasticity for age Abdomen: Abdomen is soft. Bowel sounds +. There is no abdominal tenderness, no guarding/rigidity or organomegaly Psych: limited insight. upset and agitated MSK: no joint tenderness or swelling. Digits and nails normal, no deformity : kidney or bladder not palpable Access: AVF Labs/imaging reviewed. Past medical history, past surgical history, family history, social history, allergy reviewed and noted as below Family Hx: no hx of CKD. Non contributory Objective - Vital Signs/Intake and Output Vital Signs (last 24 hours): Temp Pulse Resp BP Pulse Ox 97.6 F 64 20 120/53 L 98 07/28/18 12:00 07/28/18 12:00 07/28/18 12:00 07/28/18 07:56 07/28/18 12:00 Intake and Output: 07/28/18 07/28/18 06:59 18:59 Intake Total 480 Balance 480 - Medications Medications: Current Medications Acetaminophen (Tylenol 325mg Tab) 650 mg PO Q6 PRN PRN Reason: TEMP>=99.5F Last Admin: 07/26/18 12:30 Dose: 650 mg Acetaminophen (Tylenol 650 Mg Supp) 650 mg RC Q6H PRN PRN Reason: TEMP>=99.5F Albumin Human (Albumin Human 25% (12.5 Gm/50 Ml)) 25 gm IV TTS PRN PRN Reason: Other Aspirin (Aspirin Chewable) 81 mg PO DAILY [facility] Last Admin: 07/28/18 09:08 Dose: 81 mg Atorvastatin Calcium (Lipitor) 80 mg PO HS [facility] Last Admin: 07/27/18 21:27 Dose: 80 mg Cinacalcet (Sensipar) 30 mg PO DIN [facility] Last Admin: 07/27/18 18:23 Dose: 30 mg Darbepoetin Glenn (Aranesp) 60 mcg IVP QWK [facility] Last Admin: 07/25/18 15:30 Dose: 60 mcg Dextrose (Dextrose 50% Inj) 0 ml IV STAT PRN; Protocol PRN Reason: Hypoglycemia Protocol Diphenhydramine HCl (Benadryl Maximum Strength 1%) 1 ea TOP Q6H PRN PRN Reason: Itching / Pruritus Last Admin: 07/26/18 16:56 Dose: 1 applic Dextrose (Dextrose 5% In Water 1000 Ml) 1,000 mls @ 0 mls/hr IV .Q0M PRN; Protocol PRN Reason: Hypoglycemia Protocol Thiamine HCl 100 mg/ Sodium (Chloride) 51 mls @ 153 mls/hr IV DAILY [facility] Last Admin: 07/28/18 09:13 Dose: 153 mls/hr Insulin Human Lispro (Humalog Med) 0 units SC AC [facility]; Protocol Last Admin: 07/28/18 12:12 Dose: Not Given Insulin Human NPH (Humulin N) 10 units SC ACB [facility] Last Admin: 07/28/18 07:58 Dose: Not Given Insulin Human NPH (Humulin N) 10 units SC DAILY@1745 [facility] Last Admin: 07/27/18 18:22 Dose: 10 unit Lactic Acid (Lac-Hydrin 12% Cream (140 G)) 0 ea TOP DAILY [facility] Last Admin: 07/28/18 09:08 Dose: 1 applic Levalbuterol HCl (Xopenex) 0.63 mg IH [id number] [facility] Last Admin: 07/28/18 07:34 Dose: Not Given Levothyroxine Sodium (Synthroid) 50 mcg PO 0600 [facility] Last Admin: 07/28/18 06:10 Dose: 50 mcg Lidocaine (Lidoderm) 1 ea TD DAILY [facility] Last Admin: 07/28/18 09:09 Dose: 1 ea Metoprolol Tartrate (Lopressor) 25 mg PO BRKDIN [facility] Last Admin: 07/28/18 07:56 Dose: 25 mg Midodrine (Proamatine) 10 mg PO TID [facility] Last Admin: 07/28/18 09:07 Dose: 10 mg Ondansetron HCl (Zofran Inj) 4 mg IVP Q4H PRN PRN Reason: Nausea/Vomiting Pantoprazole Sodium (Protonix Ec Tab) 40 mg PO Q12 [facility] Last Admin: 07/28/18 09:08 Dose: 40 mg Rifaximin (Xifaxan) 550 mg PO BID [facility]; Protocol Last Admin: 07/28/18 09:08 Dose: 550 mg Sennosides (Senokot Tab) 17.2 mg PO HS [facility] Last Admin: 07/27/18 21:27 Dose: 17.2 mg Sevelamer HCl (Renagel) 800 mg PO TID [facility] Last Admin: 07/28/18 09:06 Dose: 800 mg Vitamin B Complex/Vit C/Folic Acid (Nephro-Jose Miguel) 1 tab PO DAILY [facility] Last Admin: 07/28/18 09:07 Dose: 1 tab - Labs Labs: 07/28/18 05:08 07/28/18 05:08 PT 14.6 SECONDS (9.4-12.5) H 07/25/18 09:40 INR 1.29 07/25/18 09:40 APTT 28.2 Seconds (26.9-38.3) 07/25/18 09:40
--- NOTE | 2018-07-28 14:37 | CARD ---
APPROVED REPORT Date of service: 07/28/2018 EKG Measurement Heart [id number] <Conclusion> Atrial fibrillation Left axis deviation Right bundle branch block T wave abnormality, consider inferolateral ischemia or digitalis effect Abnormal ECG
--- NOTE | 2018-07-28 15:53 | US ---
PROCEDURE: Lower extremity NEETU exam HISTORY: Peripheral vascular disease with ischemic pain. Diabetes. Previous smoking. PHYSICIAN(S): Chan Hernández MD. FINDINGS: The resting ABIs are calcified and inaccurate. The high thigh pressures are noncompressible. The right high thigh PVR waveform is relatively normal. The left high thigh PVR waveform is moderately blunted. This is suggestive of left iliac occlusive disease. The right calf PVR waveform does not augment. The left calf PVR waveform is severely blunted. This is consistent with bilateral SFA disease. The right ankle and metatarsal waveforms are moderately blunted. The left ankle and metatarsal waveforms are severely blunted. IMPRESSION: 1. Very limited study due to calcified vessels. 2. Left iliac occlusive disease. 3. Bilateral SFA disease. 4. Bilateral tibial disease. 5.. If clinically indicated, further evaluation with MRA with gadolinium runoff, CTA runoff, or conventional arteriography can be obtained
--- NOTE | 2018-07-28 15:59 | CT ---
Date of service: 07/28/2018 PROCEDURE: CT Lumbar Spine without contrast HISTORY: back pain COMPARISON: CT chest, abdomen, and pelvis 06/11/2018 TECHNIQUE: Axial computed tomography images were obtained of the lumbar spine without the use of intravenous contrast. Coronal and sagittal reformatted images were created and reviewed. Radiation dose: Total exam DLP = 1634.42 mGy-cm. This CT exam was performed using one or more of the following dose reduction techniques: Automated exposure control, adjustment of the mA and/or kV according to patient size, and/or use of iterative reconstruction technique. FINDINGS: VERTEBRAE: Vertebral body heights are maintained. Scattered subcentimeter lucencies are noted throughout multiple vertebral bodies. Multilevel small anterior osteophyte formation noted.. There is grade 1 anterolisthesis of L3 on L4 measuring 0.4 cm and L4 on L5 measuring 0.4 cm. There is multilevel facet arthropathy and endplate degenerative changes. There is mild disc space narrowing at L3-L4. Mild disc space narrowing also noted at L4-L5 and L5-S1 with vacuum disc phenomena. DISCS/SPINAL CANAL/NEURAL FORAMINA: L1-2: Disc bulge. No significant spinal canal stenosis. Moderate to severe bilateral neural foraminal stenosis. L2-3: Disc bulge and facet arthropathy produce mild spinal canal stenosis and severe right neural foraminal stenosis. L3-4: Disc bulge and facet arthropathy produce moderate to severe spinal canal stenosis. Severe bilateral neural foraminal stenosis. L4-5: Disc bulge and facet arthropathy produce moderate to severe spinal canal stenosis. Severe bilateral neural foraminal stenosis. L5-S1: Disc bulge and facet arthropathy produce mild spinal canal stenosis. Severe bilateral neural foraminal stenosis, right greater than left. PARASPINAL SOFT TISSUES: Diffuse edema noted within the visualized subcutaneous fat. OTHER FINDINGS: Visualized portions of the lung reyes demonstrate mild posterior dependent atelectasis. Visualized portions of the liver, spleen, and pancreas are grossly unremarkable. Mild nonspecific thickening noted of the bilateral adrenal glands, unchanged. Visualized portions of left kidney demonstrate a stable cyst. Visualized portion of the right kidney, demonstrates stable cysts. No hydronephrosis of either kidney. Visualized portions of small and large bowel do not demonstrate any abnormal dilatation. Partially visualized diverticulosis of the right colon without evidence of diverticulitis to the extent visualized. Abdominal aorta is normal in caliber. Aortobi-iliac atherosclerotic disease noted. There is no significant retroperitoneal or pelvic lymphadenopathy to the extent visualized. IMPRESSION: Multilevel disc bulges. Moderate to severe spinal canal stenosis at L3-L4 and L4-L5. Multilevel severe neural foraminal stenosis as above. Scattered subcentimeter lucencies throughout the vertebral bodies. Consider follow-up imaging such as bone scan. Degenerative changes of the spine. Additional findings as above.
--- NOTE | 2018-07-28 16:15 | CT ---
Date of service: 07/28/2018 PROCEDURE: CT Thoracic Spine without contrast HISTORY: back pain COMPARISON: July 28, 2018 CT lumbar spine. TECHNIQUE: Axial computed tomography images were obtained of the thoracic spine without intravenous contrast. Coronal and sagittal reformatted images were created and reviewed. Radiation dose: Total exam DLP = 720.21 mGy-cm. This CT exam was performed using one or more of the following dose reduction techniques: Automated exposure control, adjustment of the mA and/or kV according to patient size, and/or use of iterative reconstruction technique. FINDINGS: VERTEBRAE: Scoliosis, secondary degenerative change at multiple levels. . DISCS/SPINAL CANAL/NEURAL FORAMINA: Within the limits of the CT technique, no disc herniation seen. No central canal or neural foraminal stenosis.. PARASPINAL SOFT TISSUES: Unremarkable. OTHER FINDINGS: Cardiomegaly. Dilatation of the ascending aorta 3.8 cm consistent with aneurysm. Dilated main pulmonary artery 3.5 cm consistent with pulmonary arterial hypertension.. IMPRESSION: No acute findings related to/ accounting for the clinical presentation. Additional benign and/or incidental findings described above.
--- NOTE | 2018-07-28 16:21 | CON ---
DATE OF CONSULTATION: 07/28/2018 HISTORY OF PRESENT ILLNESS: In short, the patient is a 67-year-old -[place] female with multiple medical comorbidities, such as coronary artery disease status post CABG and 5 stents, end-stage renal disease on hemodialysis, hypertension. The patient was brought for evaluation of altered mental status. This publicity writer got involved into the patient's care because of altered mental status and periods of agitation. This publicity writer is very familiar with this patient from the previous consultation services were the patient presented with similar way. The patient was seen and examined today in ICU. The patient presented to be alert. The patient does not know where she is. The patient thought that she is in the streets. The patient was saying something about her toenails, then the patient said that overnight she was talking to the nurses, and she knew where to go, and the patient said that she wanted to go home. The patient has periods of confusion, agitation, and restless and majority of the time it is over nighttime. This publicity writer was involved into the patient's care last admission, which took place here in [employer], and this publicity writer saw the patient in 06/2018. The patient presented the same way last time, has periods of confusion, but improved, and this publicity writer signed off. Going back to the previous psychiatric history, the patient denied ever been depressed. The patient denied she is depressed now. The patient denied thoughts of harming herself or others. PHYSICAL EXAMINATION: VITAL SIGNS: Reviewed. Temperature 97.6, pulse 64, blood pressure 20, oxygen saturation is 98. MEDICATIONS: Reviewed. Tylenol, Wellbutrin, aspirin, Lipitor, Sensipar, Aranesp, Dextrose, Benadryl, Humalog insulin, lactic acid, levalbuterol, Synthroid, Lidoderm, Lopressor, midodrine, Zofran, Protonix, Seroquel will be given at the nighttime only if needed for agitation. The patient also is on cefixime, Senokot, Renagel, thiamine. LABORATORY DATA: Labs reviewed. Coagulation reviewed. Blood gas reviewed. Chemistry reviewed. Serology reviewed. MENTAL STATUS EXAMINATION: The patient presented to be confused, but not agitated, not aggressive. The patient did not know where she is. Intermittent eye contact. Speech was at times disorganized. Mood described, "I'm not depressed." Affect was constricted. Thought process seems to be circumstantial, tangential. Thought content, the patient denied visual, auditory, or tactile hallucinations. Denied paranoid ideation, but the patient has periods of confusion and restless behavior. Insight and judgment, impaired. Impulses are unpredictable. IMPRESSION: Most likely, the patient is in delirium stage due to multiple medical issues as well as considering the fact that the patient is in the hospital, the patient is prone to have delirium. PLAN: Seroquel was started at the nighttime. The patient responded well to that medication. The patient was educated about risks, benefits and alternatives of that medication. This publicity writer will follow up on this patient over the weekend. Should you have any questions give me a call back. Lakesha Gee MD MTDMaria De Jesus
--- NOTE | 2018-07-28 23:11 | PN ---
DATE: 07/28/2018 SUBJECTIVE: The patient is now seen today in ICU sitting up in the recliner out of bed to chair. Overnight nurse's notes were reviewed. The patient has been having episodic restless and agitated episodes and aggressive episode and verbally abusive. The patient was found to be episodically confused and disoriented. REVIEW OF SYMPTOMS: Positive for back pain, mid and lower back. PHYSICAL EXAMINATION: VITAL SIGNS: T-max of 98.6, telemetry shows atrial fibrillation, blood pressure 134/76, 139/89, 141/72, 134/63, 120/53, respiration 18-23, and O2 sat 96%-98%. The patient is sitting up in the chair. HEENT: Head examination normocephalic, atraumatic. HEENT examination shows pinkish pale conjunctivae, anicteric sclerae. No oropharyngeal lesion. NECK: No neck rigidity. CHEST: Kyphosis. Positive left upper chest AICD. LUNGS: Shows questionable decreased breath sound at the bases. CARDIOVASCULAR: S1, S2, regular rhythm. Positive systolic murmur, left sternal border, right second intercostal space, left second intercostal space. ABDOMEN: Soft. Positive bowel sounds. Protuberant abdomen. GENITALIA: Female. Rectal examination is deferred. EXTREMITY: Shows no pitting edema, no calf tenderness, no Homans' sign. NEUROLOGIC: The patient is alert, awake, responsive, is able to move upper and lower extremities without assistance. Gait examination not tested. VASCULAR: Palpable pulses. LABORATORY DATA: On 07/28/2018, WBC 5.2, hemoglobin and hematocrit 9.7 and 32.0, platelet 96,000. Sodium 141, potassium 3.7, chloride 102, CO2 of 28, anion gap 14, BUN 20, creatinine 4.6, GFR 10, glucose 104, calcium 8.7, phosphorus 2.8, magnesium 2.3, AST 65, alk phos 155, ammonia [place] [address]. Microbiology, MRSA and blood cultures are negative. The patient had a thoracic and lumbar spine CAT scan done because of the back pain. The patient is unable to undergo MRI because of the pacemaker. EKG shows atrial fibrillation, right bundle-branch block, left axis deviation. IMPRESSION: 1. Acute alteration of mental status with acute toxic metabolic encephalopathy versus acute exacerbation of hepatic encephalopathy. 2. Episodic confusion, restlessness and aggressive behavior. 3. Hypertension. 4. Atrial fibrillation. 5. Normocytic anemia, thrombocytopenia. 6. Lymphopenia. 7. Monocytosis. 8. Lactic acidosis. 9. End-stage renal disease, hemodialysis dependent. 10. Transaminitis. 11. Hyperammonemia and hepatic encephalopathy. 12. Reactive hepatitis C antibody with hepatitis C antibody signal cutoff 21.5. 13. Thoracic spine scoliosis with degenerative joint disease. 14. Cardiomegaly. 15. A 3.8-cm ascending aortic aneurysm. 16. Pulmonary hypertension with dilated main pulmonary artery of 3.5 cm. 17. Degenerative joint disease of the lumbar spine. 18. Splenic hyperechogenic mass. 19. Splenomegaly. 20. Indeterminate hyperechoic splenic mass. 21. Dilated common bile duct. 22. Hepatic cirrhosis with nodular hepatic contour. 23. Echogenic renal parenchyma. 24. Bilateral lower extremity peripheral vascular disease with left iliac occlusive disease and bilateral superficial femoral artery occlusive disease and bilateral tibial disease. 25. Old lacunar infarct of the right caudate head. 26. Chronic microvascular skin disease of the brain with cerebral cortical atrophy of the brain. 27. Ethmoid and maxillary sinus mucosal thickening. 28. Atrial fibrillation. 29. Right bundle-branch block. 30. Left axis deviation. 31. Inferolateral coronary ischemia. 32. Deconditioning. 33. Gait dysfunction. 34. Episodic agitation and confusion and questionable behavioral disorder. 35. Acute delirium. 36. Coronary artery disease with coronary artery bypass graft. 37. Status post permanent pacemaker implant. 38. Hyperammonemia and hepatic encephalopathy. 39. Hypertensive diabetic chronic kidney disease. 40. Secondary hyperparathyroidism. 41. Moderate to severe mitral regurgitation with right ventricular dysfunction. 42. Bilateral xerosis of the feet. 43. Insulin-requiring diabetes mellitus. 44. Hyperlipidemia. 45. History of hypotension. 1. Acute alteration of mental status with acute toxic metabolic encephalopathy versus acute exacerbation of hepatic encephalopathy. 2. End-stage renal disease, hemodialysis dependent. 3. Possible new-onset atrial fibrillation. 4. Hypoxemia. 5. Right bundle-branch block. 6. Left anterior hemiblock and bifascicular block. 7. Lateral coronary ischemia. 8. Anemia. 9. Thrombocytopenia. 10. Hepatic cirrhosis, etiology undetermined. 11. Hypokalemia. 12. Transaminitis. 13. Hyperammonemia. 14. Indeterminate troponin. 15. Hypertensive diabetic chronic kidney disease. 16. Secondary hyperparathyroidism. 17. Mitral regurgitation. 18. Possible right-sided diastolic congestive heart failure with right ventricular dilatation. 19. 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 20. Microvascular ischemic disease of the brain. 21. Ethmoid maxillary sinus mucosal thickening. 22. Inferolateral ischemic changes. 23. Lactic acidosis. 24. Respiratory alkalosis. 25. Toxic metabolic encephalopathy. 26. History of narcotic-dependent pain syndrome and history of questionable narcotic abuse. 27. History of possible narcotic overdose in the past. 28. Degenerative joint disease and chronic kidney disease, mineral bone disease. 29. Deconditioning. 30. Gait dysfunction. 1. Acute decompensated mental status with acute encephalopathy and confusional state and lethargy. 2. Anemia. 3. Thrombocytopenia. 4. End-stage renal disease, hemodialysis dependent three times a week. 5. Hypokalemia. 6. Severe transaminitis with history of cirrhosis. 7. Hyperammonemia. 8. Indeterminate troponin. 9. 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 10. Microvascular ischemic disease of the brain. 11. Ethmoid and maxillary sinus mucosal thickening. 12. Questionable new onset atrial fibrillation. 13. Left axis deviation. 14. Right bundle-branch block. 15. Inferolateral ischemia. 16. Altered mental status. 17. Lactic acidosis. 18. Respiratory alkalosis. 19. Hepatic encephalopathy and toxic metabolic encephalopathy with underlying hepatic cirrhosis. 20. Hypertensive diabetic chronic kidney disease. 21. Secondary hyperparathyroidism. 22. [place]akronor-ao-iouiul mitral regurgitation. 23. Right ventricular dilatation. 24. Status post automatic implantable cardioverter defibrillator implant. 25. Morbid obesity. CURRENT MEDICATIONS: The patient is on IV albumin 25 g/50 mL Tuesday, , Tuesday; Aranesp 60 mcg weekly, aspirin 81 mg daily, Benadryl topical cream, Humalog medium-dose sliding scale coverage, NPH 10 units with breakfast, NPH 10 units with supper, Lac-Hydrin lotion, Lidoderm 5% patch to the spine area and back area, Lipitor 80 mg daily, Lopressor 25 twice a day, Nephro-Jose Miguel 1 tablet daily, midodrine 10 mg three times a day, Protonix 40 mg every 12 hours, Renagel 800 mg three times a day, Senokot 17.2 mg h.s., Sensipar 30 mg daily, the patient is started on Seroquel 12.5 mg h.s. p.r.n., Synthroid 50 mcg daily, Tylenol 650 mg p.o. suppository every 6 hours p.r.n., thiamine 100 mg daily, Xifaxan 550 mg p.o. twice a day, Xopenex 0.63 mg every 6 hours p.r.n., Zofran 4 mg IV every 4 hours p.r.n. PLAN: At this time, the patient will be considered to be transferred out of the ICU. Serial labs have been ordered. Current consultations; Cardiology, Gastroenterology, Infectious Disease, Nephrology, Neurology, Podiatry, Psychiatry. The patient was seen by Gastroenterology. Recommend continue lactulose 20 g twice a day and Xifaxan 550 mg twice a day. The patient will be continued on the above therapeutic intervention. The patient will be considered out of the ICU. The patient has also been ordered a bone scan for evaluation of the spine pain. The etiology of which is not clear. Hepatitis C RNA genotype is pending. The patient's overall prognosis is guarded to poor. The patient's further management will be dependent upon the patient's clinical condition, hemodynamic status, as per the patient's response to therapeutic intervention, as per the patient's diagnostic test results, as per recommendation by all the physician involved in the care of the patient. Dictated and electronically signed, not read. Jimy Simeon MD MTDMaria De Jesus
[2018-07-28] MEDS: DiphenhydrAMINE 1% 1 EA TUBE TOP PRN (23:46)
[2018-07-29] MEDS: Levalbuterol 0.63 MG/3 ML Inhal Soln UD IH SCH ×4 (01:43→20:36)
[2018-07-29] MEDS: Levothyroxine 50 MCG TAB PO SCH (06:44)
[2018-07-29] MEDS: Insulin Lispro (humaLOG) MEDIUM Coverage SC SCH ×4 (08:00→18:20)
[2018-07-29] MEDS: Insulin Human NPH 1 UNITS/0.01 ML SC SCH ×3 (08:00→18:20)
[2018-07-29 10:01] LABS: ALB/GLOB RATIO 0.8 (1.1-1.8); ALBUMIN 3.2 g/dL (3.0-4.8); BILIRUBIN,DIRECT 0.8 mg/dL (0.0-0.4); CALCIUM 8.2 mg/dL (8.4-10.5)
[2018-07-29 10:03] LABS: BASO # 0.04 K/mm3 (0.0-2.0); EOS # 0.1 (0.0-0.7); EOS % 2.7 % (1.5-5.0); HEMOGLOBIN 9.3 g/dL (12.0-16.0); LYMPH # 1.1 (1.2-3.4); LYMPH % 26.1 % (22.0-35.0); MEAN CORPUSCULAR HEMOGLOBIN 30.3 pg (25.0-35.0); MEAN CORPUSCULAR HGB CONC 30.3 g/dl (31.0-37.0); MEAN PLATELET VOLUME 10.7 fl (7.0-11.0); MONO # 0.7 (0.1-0.6); MONO % 15.7 % (1.0-6.0); RBC 3.07 10^6/uL (3.5-6.1); RED CELL DISTRIBUTION WIDTH 19.9 % (11.5-14.5); WHITE BLOOD COUNT 4.1 10^3/uL (4.5-11.0)
[2018-07-29] MEDS ORDERED: Potassium Chloride 20 mEq ER Tab PO ONE (11:12)
--- NOTE | 2018-07-29 11:12 | CP.PCM.PN ---
Subjective - Date & Time of Evaluation Date of Evaluation: 07/29/18 Time of Evaluation: 11:11 - Subjective Subjective: Nephrology Consultation Note Assessment: stable AMS ? related to pain meds/sedative and or hepatic encephalopathy as ammonia elevated: IMPROVED Hep C + with likely cirrhosis pulmonary congestion, hypokalemia Diabetic chronic Kidney Disease (E11.22) Hypertensive Chronic Kidney Disease (I12.0) End stage renal disease (N18.6) dependence on hemodialysis (Z99.2) (TTS) via AVF Anemia (D64.9), Hyperphosphatemia (E83.39), Secondary Hyperparathyroidism (E21.1), HTN (I12.0) CAD s/p CABG obesity thrombocytopenia Lytic lesions ? underlying malignancy RV dysfunction, moderate to severe MR spinal stenosis Plan: Will plan for next dialysis as per TTS schedule. Continue with Nephrovite 1 tab/day. PRBC as needed for anemia. weekly ADAM with HD continue with phos binders as orally accepting, last Phos 3.6 maintain hemodynamic stable. resumed midodrine 10 mg TID. no on acei/arb as bp usually low. albumin prn with HD ordered Glycemic control, Dialysis consistent diet Further work up/management as per primary team Dose meds/antibiotics (if needed) for ESRD status. Avoid fleets enema/magnesium based laxatives. GI, ID Neuro and cardiology following decision for Hep C treatment per GI/ID Thanks for allowing me to participate in care of your patient. Will follow patient with you. Please call if any Qs. had d/w team Dr Amrit Malone Office: [phone] CC: AMS reason for consult: ESRD HPI:Pt is a 67 F with hx of ESRD on hemodialysis (TTS) via AVF , last dialysis Sat, chronic anemia, hyperphosphatemia, secondary hyperparathyroidism, Diabetes Mellitus, hypertension CAD s/p CABG, chronic back pain presented with complaints of AMS.Renal consult requested for ESRD management. pt had similar and recent hospitalization at [facility] for same which was attributed to pain meds ROS: c/o chronic back pain. AMS much better but intermittent episodes of confusion and agitation. no SOB Physical Examination: seen on HD General Appearance: in no acute respiratory distress, comfortable. on 1:1 obse rvation Vitals reviewed and noted as below Head; Atraumatic, normocephalic ENT: no ulcers no thrush. Tongue is midline. Oropharynx: no rash or ulcers. Neck; supple no lymphadenopathy, no thyromegaly or bruit Lungs: Normal respiratory rate/effort. Breath sounds bilateral equal and clear anteriorly Heart: Normal rate. s1s2 normal. No rub or gallop. Extremities: no Rt edema. No varicose veins. has chronic left leg edema Neurological: Patient is more communicative . awake alert today Skin: Warm and dry. Normal turgor. No rash. Palpitation: Normal elasticity for age Abdomen: Abdomen is soft. Bowel sounds +. There is no abdominal tenderness, no guarding/rigidity or organomegaly Psych: limited insight. flat affect MSK: no joint tenderness or swelling. Digits and nails normal, no deformity : kidney or bladder not palpable Access: AVF Labs/imaging reviewed. Past medical history, past surgical history, family history, social history, allergy reviewed and noted as below Family Hx: no hx of CKD. Non contributory Objective - Vital Signs/Intake and Output Vital Signs (last 24 hours): Temp Pulse Resp BP Pulse Ox 97.2 F L 84 18 122/70 96 07/28/18 23:26 07/28/18 23:26 07/28/18 23:26 07/28/18 23:26 07/28/18 23:26 - Medications Medications: Current Medications Acetaminophen (Tylenol 325mg Tab) 650 mg PO Q6 PRN PRN Reason: TEMP>=99.5F Last Admin: 07/28/18 21:50 Dose: 650 mg Acetaminophen (Tylenol 650 Mg Supp) 650 mg RC Q6H PRN PRN Reason: TEMP>=99.5F Albumin Human (Albumin Human 25% (12.5 Gm/50 Ml)) 25 gm IV TTS PRN PRN Reason: Other Aspirin (Aspirin Chewable) 81 mg PO DAILY [facility] Last Admin: 07/28/18 09:08 Dose: 81 mg Atorvastatin Calcium (Lipitor) 80 mg PO HS [facility] Last Admin: 07/28/18 21:51 Dose: 80 mg Cinacalcet (Sensipar) 30 mg PO DIN [facility] Last Admin: 07/28/18 17:29 Dose: 30 mg Darbepoetin Glenn (Aranesp) 60 mcg IVP QWK [facility] Last Admin: 07/25/18 15:30 Dose: 60 mcg Dextrose (Dextrose 50% Inj) 0 ml IV STAT PRN; Protocol PRN Reason: Hypoglycemia Protocol Diphenhydramine HCl (Benadryl Maximum Strength 1%) 1 ea TOP Q6H PRN PRN Reason: Itching / Pruritus Last Admin: 07/28/18 23:46 Dose: 1 applic Dextrose (Dextrose 5% In Water 1000 Ml) 1,000 mls @ 0 mls/hr IV .Q0M PRN; Protocol PRN Reason: Hypoglycemia Protocol Thiamine HCl 100 mg/ Sodium (Chloride) 51 mls @ 153 mls/hr IV DAILY [facility] Last Admin: 07/28/18 09:13 Dose: 153 mls/hr Insulin Human Lispro (Humalog Med) 0 units SC AC [facility]; Protocol Last Admin: 07/28/18 17:30 Dose: Not Given Insulin Human NPH (Humulin N) 10 units SC ACB [facility] Last Admin: 07/28/18 07:58 Dose: Not Given Insulin Human NPH (Humulin N) 10 units SC DAILY@1745 [facility] Last Admin: 07/28/18 17:28 Dose: 10 unit Lactic Acid (Lac-Hydrin 12% Cream (140 G)) 0 ea TOP DAILY [facility] Last Admin: 07/28/18 09:08 Dose: 1 applic Lactulose (Enulose) 20 gm PO BID [facility] Last Admin: 07/28/18 21:51 Dose: 20 gm Levalbuterol HCl (Xopenex) 0.63 mg IH [id number] [facility] Last Admin: 07/29/18 08:55 Dose: Not Given Levothyroxine Sodium (Synthroid) 50 mcg PO 0600 [facility] Last Admin: 07/28/18 06:10 Dose: 50 mcg Lidocaine (Lidoderm) 1 ea TD DAILY [facility] Last Admin: 07/28/18 09:09 Dose: 1 ea Lidocaine (Lidoderm) 1 ea TD DAILY [facility] Last Admin: 07/28/18 15:00 Dose: 1 ea Metoprolol Tartrate (Lopressor) 25 mg PO BRKDIN [facility] Last Admin: 07/28/18 17:33 Dose: 25 mg Midodrine (Proamatine) 10 mg PO TID [facility] Last Admin: 07/28/18 17:29 Dose: 10 mg Ondansetron HCl (Zofran Inj) 4 mg IVP Q4H PRN PRN Reason: Nausea/Vomiting Pantoprazole Sodium (Protonix Ec Tab) 40 mg PO Q12 [facility] Last Admin: 07/28/18 21:51 Dose: 40 mg Quetiapine Fumarate (Seroquel) 12.5 mg PO HS PRN; Protocol PRN Reason: Agitation Last Admin: 07/29/18 00:19 Dose: 12.5 mg Rifaximin (Xifaxan) 550 mg PO BID [facility]; Protocol Last Admin: 07/28/18 18:25 Dose: 550 mg Sennosides (Senokot Tab) 17.2 mg PO HS [facility] Last Admin: 07/28/18 21:52 Dose: 17.2 mg Sevelamer HCl (Renagel) 800 mg PO TID [facility] Last Admin: 07/28/18 17:30 Dose: 800 mg Vitamin B Complex/Vit C/Folic Acid (Nephro-Jose Miguel) 1 tab PO DAILY [facility] Last Admin: 07/28/18 09:07 Dose: 1 tab - Labs Labs: 07/29/18 09:37 07/29/18 09:37 PT 14.6 SECONDS (9.4-12.5) H 07/25/18 09:40 INR 1.29 07/25/18 09:40 APTT 28.2 Seconds (26.9-38.3) 07/25/18 09:40
--- NOTE | 2018-07-29 11:19 | CP.PCM.PN ---
<Guanaco Macias - Last Filed: 07/29/18 11:16> Subjective - Date & Time of Evaluation Date of Evaluation: 07/29/18 Time of Evaluation: 11:16 - Subjective Subjective: Podiatry Progress Note: Dr. Jonathon BhatF seen and evaluated this AM. No new lower extremity complaints per patient. Denies n/v/d, no f/c. Objective - Vital Signs/Intake and Output Vital Signs (last 24 hours): Temp Pulse Resp BP Pulse Ox 97.2 F L 84 18 122/70 96 07/28/18 23:26 07/28/18 23:26 07/28/18 23:26 07/28/18 23:26 07/28/18 23:26 - Medications Medications: Current Medications Acetaminophen (Tylenol 325mg Tab) 650 mg PO Q6 PRN PRN Reason: TEMP>=99.5F Last Admin: 07/28/18 21:50 Dose: 650 mg Acetaminophen (Tylenol 650 Mg Supp) 650 mg RC Q6H PRN PRN Reason: TEMP>=99.5F Albumin Human (Albumin Human 25% (12.5 Gm/50 Ml)) 25 gm IV TTS PRN PRN Reason: Other Aspirin (Aspirin Chewable) 81 mg PO DAILY [facility] Last Admin: 07/28/18 09:08 Dose: 81 mg Atorvastatin Calcium (Lipitor) 80 mg PO HS [facility] Last Admin: 07/28/18 21:51 Dose: 80 mg Cinacalcet (Sensipar) 30 mg PO DIN [facility] Last Admin: 07/28/18 17:29 Dose: 30 mg Darbepoetin Glenn (Aranesp) 60 mcg IVP QWK [facility] Last Admin: 07/25/18 15:30 Dose: 60 mcg Dextrose (Dextrose 50% Inj) 0 ml IV STAT PRN; Protocol PRN Reason: Hypoglycemia Protocol Diphenhydramine HCl (Benadryl Maximum Strength 1%) 1 ea TOP Q6H PRN PRN Reason: Itching / Pruritus Last Admin: 07/28/18 23:46 Dose: 1 applic Dextrose (Dextrose 5% In Water 1000 Ml) 1,000 mls @ 0 mls/hr IV .Q0M PRN; Protocol PRN Reason: Hypoglycemia Protocol Thiamine HCl 100 mg/ Sodium (Chloride) 51 mls @ 153 mls/hr IV DAILY [facility] Last Admin: 07/28/18 09:13 Dose: 153 mls/hr Insulin Human Lispro (Humalog Med) 0 units SC AC [facility]; Protocol Last Admin: 07/28/18 17:30 Dose: Not Given Insulin Human NPH (Humulin N) 10 units SC ACB [facility] Last Admin: 07/28/18 07:58 Dose: Not Given Insulin Human NPH (Humulin N) 10 units SC DAILY@1745 [facility] Last Admin: 07/28/18 17:28 Dose: 10 unit Lactic Acid (Lac-Hydrin 12% Cream (140 G)) 0 ea TOP DAILY [facility] Last Admin: 07/28/18 09:08 Dose: 1 applic Lactulose (Enulose) 20 gm PO BID [facility] Last Admin: 07/28/18 21:51 Dose: 20 gm Levalbuterol HCl (Xopenex) 0.63 mg IH R3ATRIN [facility] Last Admin: 07/29/18 08:55 Dose: Not Given Levothyroxine Sodium (Synthroid) 50 mcg PO 0600 [facility] Last Admin: 07/28/18 06:10 Dose: 50 mcg Lidocaine (Lidoderm) 1 ea TD DAILY [facility] Last Admin: 07/28/18 09:09 Dose: 1 ea Lidocaine (Lidoderm) 1 ea TD DAILY [facility] Last Admin: 07/28/18 15:00 Dose: 1 ea Metoprolol Tartrate (Lopressor) 25 mg PO BRKDIN [facility] Last Admin: 07/28/18 17:33 Dose: 25 mg Midodrine (Proamatine) 10 mg PO TID [facility] Last Admin: 07/28/18 17:29 Dose: 10 mg Ondansetron HCl (Zofran Inj) 4 mg IVP Q4H PRN PRN Reason: Nausea/Vomiting Pantoprazole Sodium (Protonix Ec Tab) 40 mg PO Q12 [facility] Last Admin: 07/28/18 21:51 Dose: 40 mg Quetiapine Fumarate (Seroquel) 12.5 mg PO HS PRN; Protocol PRN Reason: Agitation Last Admin: 07/29/18 00:19 Dose: 12.5 mg Rifaximin (Xifaxan) 550 mg PO BID [facility]; Protocol Last Admin: 07/28/18 18:25 Dose: 550 mg Sennosides (Senokot Tab) 17.2 mg PO HS [facility] Last Admin: 07/28/18 21:52 Dose: 17.2 mg Sevelamer HCl (Renagel) 800 mg PO TID [facility] Last Admin: 07/28/18 17:30 Dose: 800 mg Vitamin B Complex/Vit C/Folic Acid (Nephro-Jose Miguel) 1 tab PO DAILY [facility] Last Admin: 07/28/18 09:07 Dose: 1 tab - Labs Labs: 07/29/18 09:37 07/29/18 09:37 PT 14.6 SECONDS (9.4-12.5) H 07/25/18 09:40 INR 1.29 07/25/18 09:40 APTT 28.2 Seconds (26.9-38.3) 07/25/18 09:40 - Constitutional Appears: Non-toxic, No Acute Distress - Extremities Exam Additional comments: Vasc: DP and PT pulses nonpalpable. CFT <3 seconds to digits. Temperature gradient cool to cool. +1 pitting edema present b/l. Ortho: No pain with palpation of b/l lower extremities, partial 4th and 5th ray amputations LLE. Neuro: Gross sensation diminished, protective sensation absent Derm: Significant xerosis appreciated to b/l feet. Ulceration noted to plantar aspect of right foot measuring approximately 1 x 1 cm with overlying hyperkeratosis. - Neurological Exam Neurological Exam: Alert, Awake, Oriented x3 - Psychiatric Exam Psychiatric exam: Normal Affect, Normal Mood Assessment and Plan - Assessment and Plan (Free Text) Assessment: 67F with b/l xerosis, PVD, R foot ulcer Plan: Patient seen and evaluated alongside attending, Dr. Holt NEETU/PVR limited 2/2 calcified vessels -L iliac occlusive disease, bilateral SFA disease, bilateral tibial disease Right foot XR ordered Apply ammonium lactate BID Bactroban ordered for R plantar foot ulcer - apply QD Podiatry will continue to follow <Alex Holt - Last Filed: 08/01/18 08:11> Objective - Vital Signs/Intake and Output Vital Signs (last 24 hours): Temp Pulse Resp BP Pulse Ox 97.2 F L 77 20 104/55 L 95 07/30/18 18:00 07/31/18 09:02 07/30/18 18:00 07/31/18 09:02 07/30/18 18:00 - Labs Labs: 07/30/18 11:20 07/30/18 11:20 PT 14.6 SECONDS (9.4-12.5) H 07/25/18 09:40 INR 1.29 07/25/18 09:40 APTT 28.2 Seconds (26.9-38.3) 07/25/18 09:40 Attending/Attestation - Attestation I have personally seen and examined this patient.: Yes I have fully participated in the care of the patient.: Yes I have reviewed all pertinent clinical information, including history, physical exam and plan: Yes
[2018-07-29 12:21] VITALS: RESP 20
[2018-07-29] MEDS: Mupirocin 2% Ointment 15 GM TUBE TOP SCH ×2 (14:26→18:11)
[2018-07-29] MEDS: Lidocaine 5% Patch TD SCH ×2 (14:28→20:44)
[2018-07-29] MEDS: Ammonium Lactate 12% Cream (140 g) TOP SCH (14:28)
[2018-07-29] MEDS: Pantoprazole 40 mg EC Tab PO SCH ×2 (14:29→21:16)
[2018-07-29] MEDS: Multivitamin Vitamin B Complex (Nephro-Vite) Tab PO SCH (14:41)
--- NOTE | 2018-07-29 14:43 | PN ---
DATE: 07/29/2018 SUBJECTIVE: The patient is 67-year-old female with not known previous psychiatric history, multiple medical issues including hemodialysis, CABG, five stents, the patient has past history of hypertension, end-stage renal disease. The patient was seen by this radio news writer for evaluation of altered mental status. The patient was seen initially yesterday. Please see consultation note for more detailed information. The patient was seen today while hemodialysis. The patient presented to be sleepy, but easily arousable. The patient reported that she feels sleepy. The patient denied feeling depressed. Denied any feeling of hopelessness or helplessness. The patient denied thoughts of harming herself or others. Collateral information was obtained from the nursing staff as well as 1:1. As per 1:1, the patient had episodes of agitation overnight time that is why Seroquel was given to the patient. OBJECTIVE: VITAL SIGNS: Reviewed. Temperature 97.1, pulse is 61, blood pressure 103/59, respiration 20, and oxygen saturation is 100. MEDICATIONS: Reviewed. The patient is on Tylenol, aspirin, Lipitor, Sensipar, dextrose Aranesp, Benadryl, Humalog, Humulin, lactic acid, levalbuterol, Synthroid, lidocaine, Lopressor, midodrine, mupirocin, Zofran, Protonix, Seroquel 12.5 mg as needed at the nighttime for agitation, Senokot, Renagel, thiamine, and vitamin B complex. LABORATORY DATA: Reviewed. Most recent was from today. Chemistry reviewed. MENTAL STATUS EXAM: The patient presented to be sleepy, easily arousable, intermittent eye contact. Speech was underproductive, low volume, yes/no answers only. Mood described as okay. Affect was flat. Thought process was concrete. Thought content, the patient denied visual, auditory, tactile hallucinations during the interview, the patient denied thoughts of harming herself or others, but overnight the patient was confused and agitated. Insight and judgment seems to be improving. Impulses are unpredictable. IMPRESSION: Most likely the patient is in delirium stage due to general medical condition which seems to be improving. PLAN: Seroquel at the nighttime only as needed for agitation and hallucinations. Continue current management. Continue current medication. We will follow up on this patient every other day. Should you have any questions give me a call back. Thank you very much for letting me participate in care of your patient. Lakesha Gee MD [facility]
[2018-07-29] MEDS: Thiamine 100 MG in Sodium Chloride 0.9% 50 ML IV SCH (14:53)
--- NOTE | 2018-07-29 15:41 | RAD ---
Date of service: 07/29/2018 PROCEDURE: Right Foot Radiographs. HISTORY: right plantar foot wound COMPARISON: None. FINDINGS: BONES: No acute fracture. Evidence of prior metatarsal fractures. JOINTS: Normal. SOFT TISSUES: Normal. OTHER FINDINGS: None. IMPRESSION: No acute findings related to/ accounting for the clinical presentation.
--- NOTE | 2018-07-29 20:33 | PN ---
DATE: 07/29/2018 SUBJECTIVE: The patient is seen sitting up in the bed in room 363, bed 1. The patient is awake, alert, responsive, complaining of back pain. The patient was found to be confused, disoriented. The patient requires one to one sitter because of agitation, restlessness and confusion. OBJECTIVE: VITAL SIGNS: T-max 97.2, 97.1 on telemetry; sinus rhythm, heart rate 61, 84; blood pressure 122/70, 103/59; respirations 20; O2 sat 100% and 96%. HEENT: Head: Normocephalic, atraumatic. Pinkish conjunctivae. Anicteric sclerae. No oropharyngeal lesion. No neck rigidity. CHEST: Shows median sternotomy surgical scar. Positive left upper chest AICD. HEART: Shows no audible crackle, rales or wheezing. CARDIOVASCULAR: Shows S1, S2, irregular rhythm. Positive systolic murmur left sternal border, right second intercostal space, left second intercostal space. ABDOMEN: Soft. Positive bowel sounds. GENITALIA: Female. RECTAL: Deferred. EXTREMITIES: Shows no pitting edema, no Homans' sign. Positive for extremity AV fistula. Motor strength is 5/5 in upper and lower extremity. Gait examination is not tested. MUSCULOSKELETAL: Shows a body mass index of 29.8. LABORATORY AND DIAGNOSTICS: On 07/29/2018 WBC 4.1, hemoglobin/hematocrit 9.3, 30.7, platelet 110,000. Potassium is 3.2, creatinine 3.5, calcium 8.2, phosphorus 2.1. AST 63. Ammonia level is 10. ProBNP is 59,500. Hepatitis C is reactive. Microbiology cultures are negative. The patient had a foot x-ray which was ordered by the Podiatry which was negative. IMPRESSION: 1. Acute exacerbation of hepatic encephalopathy and toxic metabolic encephalopathy. 2. Confusional state and disorientation, lull state. 3. Questionable behavioral disorder with episodic restlessness and agitated episode and aggressive behavior and verbally abusive patient. 4. Lumbar and thoracic spine pain. 5. Hepatic encephalopathy. 6. Hyperammonemia. 7. Hepatitis C and hepatic cirrhosis. 8. Possible delirium. 9. Narcotic seeking behavior. 10. History of narcotic and sedative and benzodiazepine overuse. 11. Hepatitis C secondary to cirrhosis. 12. Diabetic chronic kidney disease and hypertensive chronic kidney disease. 13. End-stage renal disease, hemodialysis dependent. 14. Anemia. 15. Secondary hyperparathyroidism. 16. Thrombocytopenia. 17. Pancytopenia, leukopenia, anemia, thrombocytopenia. 18. Hypokalemia and end-stage renal disease, dialysis patient. 19. Transaminitis. 20. Reactive hepatitis C antibody. 21. Multilevel thoracic spine degenerative joint disease and scoliosis. 22. Cardiomegaly. 23. 3.8 cm ascending aorta on a rhythm. 24. Pulmonary hypertension with dilated main pulmonary artery of 3.5 cm. 25. Multilevel lumbar spine degenerative disc disease and spinal stenosis and foramen stenosis. 26. Lumbar spine multilevel facet arthropathy and degenerative joint disease and disk space narrowing and vacuum disk phenomenon. 27. Splenomegaly with indeterminate hyperechoic splenic mass. 28. Dilated common bile duct. 29. Echogenic right renal parenchyma with medical renal disease. 30. Hepatic cirrhosis with nodular hepatic contour. 31. Peripheral arterial disease of the lower extremity with left iliac of occlusive disease and bilateral superficial femoral artery peripheral arterial disease and bilateral tibial disease. 32. Atrial fibrillation. 33. Left axis deviation. 34. Right bundle-branch block. 35. Inferolateral coronary ischemia. 36. Bilateral feet xerosis and right foot ulcer. 37. Hypokalemia. 39. Hyperlipidemia. 40. History of hypertension. 41. Hypothyroidism. 1. Acute alteration of mental status with acute toxic metabolic encephalopathy versus acute exacerbation of hepatic encephalopathy. 2. Episodic confusion, restlessness and aggressive behavior. 3. Hypertension. 4. Atrial fibrillation. 5. Normocytic anemia, thrombocytopenia. 6. Lymphopenia. 7. Monocytosis. 8. Lactic acidosis. 9. End-stage renal disease, hemodialysis dependent. 10. Transaminitis. 11. Hyperammonemia and hepatic encephalopathy. 12. Reactive hepatitis C antibody with hepatitis C antibody signal cutoff 21.5. 13. Thoracic spine scoliosis with degenerative joint disease. 14. Cardiomegaly. 15. A 3.8-cm ascending aortic aneurysm. 16. Pulmonary hypertension with dilated main pulmonary artery of 3.5 cm. 17. Degenerative joint disease of the lumbar spine. 18. Splenic hyperechogenic mass. 19. Splenomegaly. 20. Indeterminate hyperechoic splenic mass. 21. Dilated common bile duct. 22. Hepatic cirrhosis with nodular hepatic contour. 23. Echogenic renal parenchyma. 24. Bilateral lower extremity peripheral vascular disease with left iliac occlusive disease and bilateral superficial femoral artery occlusive disease and bilateral tibial disease. 25. Old lacunar infarct of the right caudate head. 26. Chronic microvascular skin disease of the brain with cerebral cortical atrophy of the brain. 27. Ethmoid and maxillary sinus mucosal thickening. 28. Atrial fibrillation. 29. Right bundle-branch block. 30. Left axis deviation. 31. Inferolateral coronary ischemia. 32. Deconditioning. 33. Gait dysfunction. 34. Episodic agitation and confusion and questionable behavioral disorder. 35. Acute delirium. 36. Coronary artery disease with coronary artery bypass graft. 37. Status post permanent pacemaker implant. 38. Hyperammonemia and hepatic encephalopathy. 39. Hypertensive diabetic chronic kidney disease. 40. Secondary hyperparathyroidism. 41. Moderate to severe mitral regurgitation with right ventricular dysfunction. 42. Bilateral xerosis of the feet. 43. Insulin-requiring diabetes mellitus. 44. Hyperlipidemia. 45. History of hypotension. 1. Acute alteration of mental status with acute toxic metabolic encephalopathy versus acute exacerbation of hepatic encephalopathy. 2. End-stage renal disease, hemodialysis dependent. 3. Possible new-onset atrial fibrillation. 4. Hypoxemia. 5. Right bundle-branch block. 6. Left anterior hemiblock and bifascicular block. 7. Lateral coronary ischemia. 8. Anemia. 9. Thrombocytopenia. 10. Hepatic cirrhosis, etiology undetermined. 11. Hypokalemia. 12. Transaminitis. 13. Hyperammonemia. 14. Indeterminate troponin. 15. Hypertensive diabetic chronic kidney disease. 16. Secondary hyperparathyroidism. 17. Mitral regurgitation. 18. Possible right-sided diastolic congestive heart failure with right ventricular dilatation. 19. 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 20. Microvascular ischemic disease of the brain. 21. Ethmoid maxillary sinus mucosal thickening. 22. Inferolateral ischemic changes. 23. Lactic acidosis. 24. Respiratory alkalosis. 25. Toxic metabolic encephalopathy. 26. History of narcotic-dependent pain syndrome and history of questionable narcotic abuse. 27. History of possible narcotic overdose in the past. 28. Degenerative joint disease and chronic kidney disease, mineral bone disease. 29. Deconditioning. 30. Gait dysfunction. 1. Acute decompensated mental status with acute encephalopathy and confusional state and lethargy. 2. Anemia. 3. Thrombocytopenia. 4. End-stage renal disease, hemodialysis dependent three times a week. 5. Hypokalemia. 6. Severe transaminitis with history of cirrhosis. 7. Hyperammonemia. 8. Indeterminate troponin. 9. 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 10. Microvascular ischemic disease of the brain. 11. Ethmoid and maxillary sinus mucosal thickening. 12. Questionable new onset atrial fibrillation. 13. Left axis deviation. 14. Right bundle-branch block. 15. Inferolateral ischemia. 16. Altered mental status. 17. Lactic acidosis. 18. Respiratory alkalosis. 19. Hepatic encephalopathy and toxic metabolic encephalopathy with underlying hepatic cirrhosis. 20. Hypertensive diabetic chronic kidney disease. 21. Secondary hyperparathyroidism. 22. [id number] mitral regurgitation. 23. Right ventricular dilatation. 24. Status post automatic implantable cardioverter defibrillator implant. 25. Morbid obesity. PLAN: At this time, the patient has been ordered serial ammonia repeat labs. Current consultation Cardiology, Gastroenterology, Infectious Disease, Nephrology, Neurology, Podiatry, Psychiatry. Current medications Aranesp 60 mcg weekly, aspirin 81 mg daily, Bactroban cream to the affected area, Benadryl cream to the affected area, lactulose 20 g twice a day, Humalog medium dose sliding scale coverage, NPH 10 units with breakfast, 10 units with supper. The patient was given one dose of potassium 20 mEq x1 today, Lac-Hydrin lotion, Lidoderm 5% patch to all affected areas of pain and spine area, Lipitor 80 mg at bedtime, Lopressor 25 mg twice a day, Nephro-Jose Miguel 1 tablet daily,ProAmatine 10 mg three times a day, Protonix 40 mg every 12 hours, Renagel 800 mg three times a day, Senokot at bedtime. The patient is on Sensipar, the patient is on Renagel, Senokot, Seroquel 12.5 at bedtime, Synthroid 50 mcg daily Tylenol p.r.n., twice a day, Xopenex nebulizer every 6 hours, Zofran 4 mg IV every 4 hours p.r.n. At present, the patient has been ordered a bone scan which is pending. We are awaiting bone scan report, we will consider transferring the patient back. The patient was seen and evaluated by physical therapist yesterday. Their recommendation is to return to subacute rehab, which we will try to get the patient back to subacute rehab as soon as the patient is cleared for discharge. At present, the patient needs Cardiology evaluation and recommendation regarding the treatment of atrial fibrillation, whether the patient needs to be anticoagulated to be put on any anticoagulants. Dictated and electronically signed, not read. Jimy Simeon MD [facility]
--- NOTE | 2018-07-29 21:04 | PN ---
DATE: 07/29/2018 SUBJECTIVE: This patient was seen and evaluated earlier. I am covering for Dr. Angelito Terry. The patient is comfortable, more alert, tolerating the diet. PHYSICAL EXAMINATION: VITAL SIGNS: Temperature 97.1, blood pressure 103/59, pulse 61, respirations 20, and O2 saturation 100%. HEENT: Atraumatic, anicteric. NECK: Supple. HEART: S1 and S2 heard. LUNGS: Bilateral air entry present. ABDOMEN: Soft, nontender. LABORATORY DATA: Hemoglobin 9.3, hematocrit 30.7, WBC 4.1, platelets 95. Chemistry: ALT 63, creatinine 3.5, BUN 16. IMPRESSION: This 67-year-old patient with cirrhosis of the liver with hepatitis C antibody positive, admitted with hepatic encephalopathy. The patient did receive initially lactulose enema, presently on Xifaxan and lactulose p.o. 20 g b.i.d. Had a significant improvement of the hepatic encephalopathy. Ammonia level has come down to 10. Would recommend to continue the lactulose and also Xifaxan. Other comorbidities include end-stage renal disease, on hemodialysis, coronary artery disease, chronic back pain, hypothyroidism, diabetes mellitus. We will followup the hepatitis C RNA titer. Thank you very much for allowing us to participate in the care of this patient. Edna Machado MD
--- NOTE | 2018-07-29 22:20 | PN ---
DATE: 07/29/2018 SUBJECTIVE: The patient is in bed, in no acute distress, nontoxic. PHYSICAL EXAMINATION: VITAL SIGNS: Temperature is 98, blood pressure is 120/70, respiratory rate of 16. HEENT: Unremarkable. NECK: Supple. LUNGS: Have decreased breath sounds. HEART: Normal S1, S2. ABDOMEN: Soft, nontender. LABORATORY DATA: Laboratory examination reveals the patient's white count of 4 and BUN of 16, creatinine of 3.5. Cultures reveal the cultures are negative. Blood cultures are negative. MRSA screen is negative. Review of orders reveals the patient is off of antibiotics. Dr. Lakesha Gee's note is reviewed. ASSESSMENT AND PLAN: A 67-year-old with past medical hemodialysis, coronary artery disease, hypothyroidism, diabetes, cirrhosis of the liver, pacemaker who is admitted with chronic renal failure, on hemodialysis, change in mental status, hepatic encephalopathy versus medication induced. No evidence of infection. Currently, off of antibiotics. The patient is at risk for developing nosocomial infections. Bill Whitt MD
[2018-07-30] MEDS: DiphenhydrAMINE 1% 1 EA TUBE TOP PRN ×2 (00:55→11:20)
[2018-07-30] MEDS ORDERED: Oxycodone/Acetaminophen 5/325 mg Tab PO ONE (02:11)
[2018-07-30] MEDS ORDERED: Morphine 2 mg/ml ISec IVP ONE (02:24)
[2018-07-30] MEDS: Levalbuterol 0.63 MG/3 ML Inhal Soln UD IH SCH ×4 (02:45→20:06)
[2018-07-30] MEDS: Levothyroxine 50 MCG TAB PO SCH (06:32)
[2018-07-30 06:44] VITALS: TEMP 97.2
[2018-07-30] MEDS: Insulin Lispro (humaLOG) MEDIUM Coverage SC SCH ×3 (08:38→17:26)
[2018-07-30] MEDS: Insulin Human NPH 1 UNITS/0.01 ML SC SCH ×2 (08:39→17:26)
[2018-07-30] MEDS: Multivitamin Vitamin B Complex (Nephro-Vite) Tab PO SCH (11:22)
[2018-07-30] MEDS: Pantoprazole 40 mg EC Tab PO SCH ×2 (11:24→21:30)
[2018-07-30] MEDS: Lidocaine 5% Patch TD SCH ×2 (11:24→11:28)
[2018-07-30] MEDS: Thiamine 100 MG in Sodium Chloride 0.9% 50 ML IV SCH (11:26)
[2018-07-30] MEDS: Ammonium Lactate 12% Cream (140 g) TOP SCH (11:28)
[2018-07-30 11:36] LABS: BASO # 0.02 K/mm3 (0.0-2.0); BASO % 0.5 % (0.0-3.0); EOS # 0.1 (0.0-0.7); EOS % 1.8 % (1.5-5.0); HEMOGLOBIN 9.7 g/dL (12.0-16.0); LYMPH # 0.8 (1.2-3.4); LYMPH % 18.3 % (22.0-35.0); MEAN CELL VOLUME 100.9 fl (80.0-105.0); MEAN CORPUSCULAR HEMOGLOBIN 30.4 pg (25.0-35.0); MEAN CORPUSCULAR HGB CONC 30.1 g/dl (31.0-37.0); MEAN PLATELET VOLUME 10.9 fl (7.0-11.0); MONO # 0.9 (0.1-0.6); MONO % 20.3 % (1.0-6.0); PLATELET COUNT 93 10^3/uL (120.0-450.0); RBC 3.19 10^6/uL (3.5-6.1); WHITE BLOOD COUNT 4.4 10^3/uL (4.5-11.0)
[2018-07-30 11:47] LABS: ALB/GLOB RATIO 0.9 (1.1-1.8); ALBUMIN 3.6 g/dL (3.0-4.8); BILIRUBIN,DIRECT 0.9 mg/dL (0.0-0.4); CALCIUM 8.1 mg/dL (8.4-10.5)
[2018-07-30 12:02] LABS: PLATELET COUNT MANUAL 100 K/mm3 (120-450)
[2018-07-30 12:05] LABS: ATYPICAL LYMPHOCYTE 3 % (0.0-0.0); EOSINOPHIL 1 % (0.0-3.0); LYMPHOCYTE 18 % (22.0-35.0); MONOCYTE 7 % (1.0-6.0); NEUTROPHIL 71 % (50.0-70.0); PLATELET ESTIMATE LOW (NORMAL)
[2018-07-30 12:06] LABS: ANISOCYTOSIS 1+; HYPOCHROMIA 2+; OVALOCYTES SLIGHT; POIKILOCYTOSIS SLIGHT; POLYCHROMASIA SLIGHT; TEAR DROP CELLS SLIGHT
[2018-07-30 12:07] LABS: TARGET CELLS SLIGHT; TOXIC GRANULATION SLIGHT
--- NOTE | 2018-07-30 12:52 | PN ---
DATE: 07/30/2018 SUBJECTIVE: The patient is in bed in no acute distress, was seen earlier. She is awake and alert. She is communicating. OBJECTIVE: VITAL SIGNS: Temperature of 97, blood pressure is 90/40, respiratory rate 20, heart rate of 62. HEENT: Unremarkable. NECK: Supple. LUNGS: Have decreased breath sounds. HEART: Normal S1, S2. ABDOMEN: Soft, nontender. LABORATORY EXAMINATION: Reveals a white count of 4.1, hemoglobin of 9, platelets of 95. BUN of 16, creatinine of 3.5. Blood cultures are negative. Naris cultures are not detected.. Review of orders reveals the patient to be off of antibiotics. ASSESSMENT AND PLAN: This is a 67-year-old female with past medical history of coronary artery disease, hypothyroidism, diabetes, cirrhosis of the liver, pacemaker, chronic renal failure on hemodialysis, admitted with change in mental status, probable medication-induced, currently off of antibiotics, afebrile, awake. No evidence of infection. White count is normal. The patient is at risk for developing nosocomial infections. We will follow with you. Bill Whitt MD
[2018-07-30] MEDS: Mupirocin 2% Ointment 15 GM TUBE TOP SCH ×2 (13:43→18:48)
--- NOTE | 2018-07-30 13:45 | CP.PCM.PN ---
Subjective - Date & Time of Evaluation Date of Evaluation: 07/30/18 Time of Evaluation: 13:45 - Subjective Subjective: Nephrology Consultation Note Assessment: stable AMS ? related to pain meds/sedative and or hepatic encephalopathy as ammonia elevated: IMPROVED Hep C + with likely cirrhosis pulmonary congestion, hypokalemia Diabetic chronic Kidney Disease (E11.22) Hypertensive Chronic Kidney Disease (I12.0) End stage renal disease (N18.6) dependence on hemodialysis (Z99.2) (TTS) via AVF Anemia (D64.9), Hyperphosphatemia (E83.39), Secondary Hyperparathyroidism (E21.1), HTN (I12.0) CAD s/p CABG obesity thrombocytopenia Lytic lesions ? underlying malignancy RV dysfunction, moderate to severe MR spinal stenosis Plan: Will plan for next dialysis as per TTS schedule. Continue with Nephrovite 1 tab/day. PRBC as needed for anemia. weekly ADAM with HD continue with phos binders as orally accepting, last Phos 3.6 maintain hemodynamic stable. resumed midodrine 10 mg TID. no on acei/arb as bp usually low. albumin prn with HD ordered Glycemic control, Dialysis consistent diet Further work up/management as per primary team Dose meds/antibiotics (if needed) for ESRD status. Avoid fleets enema/magnesium based laxatives. GI, ID Neuro and cardiology following decision for Hep C treatment per GI/ID Thanks for allowing me to participate in care of your patient. Will follow patient with you. Please call if any Qs. had d/w team Dr Amrit Malone Office: [phone] CC: AMS reason for consult: ESRD HPI:Pt is a 67 F with hx of ESRD on hemodialysis (TTS) via AVF , last dialysis Sat, chronic anemia, hyperphosphatemia, secondary hyperparathyroidism, Diabetes Mellitus, hypertension CAD s/p CABG, chronic back pain presented with complaints of AMS.Renal consult requested for ESRD management. pt had similar and recent [place] [facility] [place] which was attributed to pain meds ROS: c/o chronic back pain. AMS much better but intermittent episodes of confusion and agitation. no SOB. todays feels closer to baseline Physical Examination: General Appearance: in no acute respiratory distress, comfortable. on 1:1 observation. better appearing Vitals reviewed and noted as below Head; Atraumatic, normocephalic ENT: no ulcers no thrush. Tongue is midline. Oropharynx: no rash or ulcers. Neck; supple no lymphadenopathy, no thyromegaly or bruit Lungs: Normal respiratory rate/effort. Breath sounds bilateral equal and clear anteriorly Heart: Normal rate. s1s2 normal. No rub or gallop. Extremities: no Rt edema. No varicose veins. has chronic left leg edema Neurological: Patient is more communicative . awake alert today Skin: Warm and dry. Normal turgor. No rash. Palpitation: Normal elasticity for age Abdomen: Abdomen is soft. Bowel sounds +. There is no abdominal tenderness, no guarding/rigidity or organomegaly Psych: limited insight. flat affect MSK: no joint tenderness or swelling. Digits and nails normal, no deformity : kidney or bladder not palpable Access: AVF Labs/imaging reviewed. Past medical history, past surgical history, family history, social history, allergy reviewed and noted as below Family Hx: no hx of CKD. Non contributory Objective - Vital Signs/Intake and Output Vital Signs (last 24 hours): Temp Pulse Resp BP Pulse Ox 97.2 F L 62 20 90/48 L 100 07/30/18 06:00 07/30/18 08:40 07/30/18 06:00 07/30/18 08:40 07/30/18 06:00 - Medications Medications: Current Medications Acetaminophen (Tylenol 325mg Tab) 650 mg PO Q6 PRN PRN Reason: TEMP>=99.5F Last Admin: 07/30/18 01:16 Dose: 650 mg Acetaminophen (Tylenol 650 Mg Supp) 650 mg RC Q6H PRN PRN Reason: TEMP>=99.5F Albumin Human (Albumin Human 25% (12.5 Gm/50 Ml)) 25 gm IV TTS PRN PRN Reason: Other Aspirin (Aspirin Chewable) 81 mg PO DAILY [facility] Last Admin: 07/30/18 11:30 Dose: 81 mg Atorvastatin Calcium (Lipitor) 80 mg PO HS [facility] Last Admin: 07/29/18 21:16 Dose: 80 mg Cinacalcet (Sensipar) 30 mg PO DIN [facility] Last Admin: 07/29/18 18:49 Dose: 30 mg Darbepoetin Glenn (Aranesp) 60 mcg IVP QWK [facility] Last Admin: 07/25/18 15:30 Dose: 60 mcg Dextrose (Dextrose 50% Inj) 0 ml IV STAT PRN; Protocol PRN Reason: Hypoglycemia Protocol Diphenhydramine HCl (Benadryl Maximum Strength 1%) 1 ea TOP Q6H PRN PRN Reason: Itching / Pruritus Last Admin: 07/30/18 00:55 Dose: 1 applic Dextrose (Dextrose 5% In Water 1000 Ml) 1,000 mls @ 0 mls/hr IV .Q0M PRN; Protocol PRN Reason: Hypoglycemia Protocol Thiamine HCl 100 mg/ Sodium (Chloride) 51 mls @ 153 mls/hr IV DAILY [facility] Last Admin: 07/30/18 11:26 Dose: 153 mls/hr Insulin Human Lispro (Humalog Med) 0 units SC AC [facility]; Protocol Last Admin: 07/30/18 13:26 Dose: Not Given Insulin Human NPH (Humulin N) 10 units SC ACB [facility] Last Admin: 07/30/18 08:39 Dose: Not Given Insulin Human NPH (Humulin N) 10 units SC DAILY@1745 [facility] Last Admin: 07/29/18 18:20 Dose: Not Given Lactic Acid (Lac-Hydrin 12% Cream (140 G)) 0 ea TOP DAILY [facility] Last Admin: 07/30/18 11:28 Dose: 1 applic Lactulose (Enulose) 20 gm PO BID [facility] Last Admin: 07/30/18 11:25 Dose: 20 gm Levalbuterol HCl (Xopenex) 0.63 mg IH [id number] [facility] Last Admin: 07/30/18 13:42 Dose: Not Given Levothyroxine Sodium (Synthroid) 50 mcg PO 0600 [facility] Last Admin: 07/30/18 06:32 Dose: 50 mcg Lidocaine (Lidoderm) 1 ea TD DAILY [facility] Last Admin: 07/30/18 11:24 Dose: 1 ea Lidocaine (Lidoderm) 1 ea TD DAILY [facility] Last Admin: 07/30/18 11:28 Dose: Not Given Metoprolol Tartrate (Lopressor) 25 mg PO BRKDIN [facility] Last Admin: 07/30/18 08:40 Dose: Not Given Midodrine (Proamatine) 10 mg PO TID [facility] Last Admin: 07/30/18 11:24 Dose: 10 mg Mupirocin (Bactroban Ointment) 0 gm TOP BID [facility] Last Admin: 07/29/18 18:11 Dose: Not Given Ondansetron HCl (Zofran Inj) 4 mg IVP Q4H PRN PRN Reason: Nausea/Vomiting Pantoprazole Sodium (Protonix Ec Tab) 40 mg PO Q12 [facility] Last Admin: 07/30/18 11:24 Dose: 40 mg Quetiapine Fumarate (Seroquel) 12.5 mg PO HS PRN; Protocol PRN Reason: Agitation Last Admin: 07/29/18 21:15 Dose: 12.5 mg Rifaximin (Xifaxan) 550 mg PO BID [facility]; Protocol Last Admin: 07/30/18 11:24 Dose: 550 mg Sennosides (Senokot Tab) 17.2 mg PO HS [facility] Last Admin: 07/29/18 22:00 Dose: Not Given Sevelamer HCl (Renagel) 800 mg PO TID [facility] Last Admin: 07/30/18 11:22 Dose: 800 mg Tramadol HCl (Ultram) 50 mg PO Q12H PRN PRN Reason: Pain, moderate (4-7) Vitamin B Complex/Vit C/Folic Acid (Nephro-Jose Miguel) 1 tab PO DAILY [facility] Last Admin: 07/30/18 11:22 Dose: 1 tab - Labs Labs: 07/30/18 11:20 07/30/18 11:20 PT 14.6 SECONDS (9.4-12.5) H 07/25/18 09:40 INR 1.29 07/25/18 09:40 APTT 28.2 Seconds (26.9-38.3) 07/25/18 09:40
--- NOTE | 2018-07-30 16:58 | PN ---
DATE: 07/30/2018 SUBJECTIVE: The patient was seen today at the morning time. The patient presented to be sleepy. The patient was not able to participate in interview. The patient was easily arousable. Collateral information from 1:1 sitter, the patient had episodes of confusion and restless and majority of the time it is at the sundowning. Besides that, no acute changes with the patient presentation. OBJECTIVE: VITAL SIGNS: Reviewed. MEDICATIONS: Reviewed. LABORATORY DATA: Reviewed. Microbiology reviewed. This group underwriter was not able to assess mental status because the patient is deeply sleeping. IMPRESSION: Most likely the patient is in delirium stage which is due to general medical condition. Multiple medical comorbidities. PLAN: Seroquel will be continued. Continue current management and current medications. The patient is on hemodialysis. Podiatry is involved. Nephrology involved. Infectious Disease involved. This group underwriter will follow up on this patient every other day. Should you have any questions give me a call back. Lakesha Gee MD
[2018-07-30 18:12] VITALS: O2SAT 95
--- NOTE | 2018-07-30 19:29 | PN ---
DATE: 07/30/2018 LOCATION: The patient was seen in room 363, bed 1. SUBJECTIVE: The patient is lying in the bed. The patient is lethargic but arousable, refuses to open eyes. Coming to the nurses' notes and according to the nurses, the patient did not sleep overnight and needed one-to-one observation. The patient had been agitated, restless, confused and disoriented. The patient is seen lying in the bed, does not appear to be in any distress. PHYSICAL EXAMINATION GENERAL: The patient has been complaining of back pain and spine pain. VITAL SIGNS: T-max of 97.2, pulse 62, blood pressure 90/58, to 105/70, respiration 18 to 20, and O2 sat 100%. HEENT: Head examination; normocephalic and atraumatic. HEENT examination shows pinkish pale conjunctivae, anicteric sclerae. No oropharyngeal lesion. NECK: No neck rigidity. CHEST: Kyphosis. Median sternotomy surgical scar. Positive left upper chest AICD. LUNGS: Shows no audible crackle, rales, or wheezing. CARDIOVASCULAR: S1 and S2 regular and rhythm. Positive systolic murmur left sternal border, right second intercostal space, left second intercostal space. ABDOMEN: Soft. Protuberant. Positive bowel sounds. Unable to appreciate any hepatosplenomegaly. GENITALIA: Female. RECTAL: Deferred. EXTREMITIES: Shows positive right upper extremity AV fistula, positive thrills. Lower extremity shows no pitting edema. No calf tenderness, no Homans' sign. NEUROLOGIC: The patient is alert, awake, responsive and is able to state her name. Unable to state date, year, and month. The patient is confused and disoriented. Withdraws upper and lower extremity to painful stimuli. Finger stick blood sugar 146, 180, and 172. DIAGNOSTICS: 07/30/2018; WBC 4.4, hemoglobin and hematocrit 9.7 and 32, and platelet 93,000. Sodium 141, potassium 3.6, chloride 103, CO2 of 26, BUN 19, creatinine 4.8, and glucose 109. Calcium 8.1, phosphorus 2.5, magnesium 2.4, and AST 63. IMPRESSION: 1. Acute exacerbation of hepatic encephalopathy and toxic metabolic encephalopathy. 2. Confusional state and disorientation, lull state. 3. Questionable behavioral disorder with episodic restlessness and agitated episode and aggressive behavior and verbally abusive patient. 4. Lumbar and thoracic spine pain. 5. Hepatic encephalopathy. 6. Hyperammonemia. 7. Hepatitis C and hepatic cirrhosis. 8. Possible delirium. 9. Narcotic seeking behavior. 10. History of narcotic and sedative and benzodiazepine overuse. 11. Hepatitis C secondary to cirrhosis. 12. Diabetic chronic kidney disease and hypertensive chronic kidney disease. 13. End-stage renal disease, hemodialysis dependent. 14. Anemia. 15. Secondary hyperparathyroidism. 16. Thrombocytopenia. 17. Pancytopenia, leukopenia, anemia, thrombocytopenia. 18. Hypokalemia and end-stage renal disease, dialysis patient. 19. Transaminitis. 20. Reactive hepatitis C antibody. 21. Multilevel thoracic spine degenerative joint disease and scoliosis. 22. Cardiomegaly. 23. 3.8 cm ascending aorta on a rhythm. 24. Pulmonary hypertension with dilated main pulmonary artery of 3.5 cm. 25. Multilevel lumbar spine degenerative disc disease and spinal stenosis and foramen stenosis. 26. Lumbar spine multilevel facet arthropathy and degenerative joint disease and disk space narrowing and vacuum disk phenomenon. 27. Splenomegaly with indeterminate hyperechoic splenic mass. 28. Dilated common bile duct. 29. Echogenic right renal parenchyma with medical renal disease. 30. Hepatic cirrhosis with nodular hepatic contour. 31. Peripheral arterial disease of the lower extremity with left iliac of occlusive disease and bilateral superficial femoral artery peripheral arterial disease and bilateral tibial disease. 32. Atrial fibrillation. 33. Left axis deviation. 34. Right bundle-branch block. 35. Inferolateral coronary ischemia. 36. Bilateral feet xerosis and right foot ulcer. 37. Hypokalemia. 39. Hyperlipidemia. 40. History of hypertension. 41. Hypothyroidism. 1. Acute alteration of mental status with acute toxic metabolic encephalopathy versus acute exacerbation of hepatic encephalopathy. 2. Episodic confusion, restlessness and aggressive behavior. 3. Hypertension. 4. Atrial fibrillation. 5. Normocytic anemia, thrombocytopenia. 6. Lymphopenia. 7. Monocytosis. 8. Lactic acidosis. 9. End-stage renal disease, hemodialysis dependent. 10. Transaminitis. 11. Hyperammonemia and hepatic encephalopathy. 12. Reactive hepatitis C antibody with hepatitis C antibody signal cutoff 21.5. 13. Thoracic spine scoliosis with degenerative joint disease. 14. Cardiomegaly. 15. A 3.8-cm ascending aortic aneurysm. 16. Pulmonary hypertension with dilated main pulmonary artery of 3.5 cm. 17. Degenerative joint disease of the lumbar spine. 18. Splenic hyperechogenic mass. 19. Splenomegaly. 20. Indeterminate hyperechoic splenic mass. 21. Dilated common bile duct. 22. Hepatic cirrhosis with nodular hepatic contour. 23. Echogenic renal parenchyma. 24. Bilateral lower extremity peripheral vascular disease with left iliac occlusive disease and bilateral superficial femoral artery occlusive disease and bilateral tibial disease. 25. Old lacunar infarct of the right caudate head. 26. Chronic microvascular skin disease of the brain with cerebral cortical atrophy of the brain. 27. Ethmoid and maxillary sinus mucosal thickening. 28. Atrial fibrillation. 29. Right bundle-branch block. 30. Left axis deviation. 31. Inferolateral coronary ischemia. 32. Deconditioning. 33. Gait dysfunction. 34. Episodic agitation and confusion and questionable behavioral disorder. 35. Acute delirium. 36. Coronary artery disease with coronary artery bypass graft. 37. Status post permanent pacemaker implant. 38. Hyperammonemia and hepatic encephalopathy. 39. Hypertensive diabetic chronic kidney disease. 40. Secondary hyperparathyroidism. 41. Moderate to severe mitral regurgitation with right ventricular dysfunction. 42. Bilateral xerosis of the feet. 43. Insulin-requiring diabetes mellitus. 44. Hyperlipidemia. 45. History of hypotension. 1. Acute alteration of mental status with acute toxic metabolic encephalopathy versus acute exacerbation of hepatic encephalopathy. 2. End-stage renal disease, hemodialysis dependent. 3. Possible new-onset atrial fibrillation. 4. Hypoxemia. 5. Right bundle-branch block. 6. Left anterior hemiblock and bifascicular block. 7. Lateral coronary ischemia. 8. Anemia. 9. Thrombocytopenia. 10. Hepatic cirrhosis, etiology undetermined. 11. Hypokalemia. 12. Transaminitis. 13. Hyperammonemia. 14. Indeterminate troponin. 15. Hypertensive diabetic chronic kidney disease. 16. Secondary hyperparathyroidism. 17. Mitral regurgitation. 18. Possible right-sided diastolic congestive heart failure with right ventricular dilatation. 19. 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 20. Microvascular ischemic disease of the brain. 21. Ethmoid maxillary sinus mucosal thickening. 22. Inferolateral ischemic changes. 23. Lactic acidosis. 24. Respiratory alkalosis. 25. Toxic metabolic encephalopathy. 26. History of narcotic-dependent pain syndrome and history of questionable narcotic abuse. 27. History of possible narcotic overdose in the past. 28. Degenerative joint disease and chronic kidney disease, mineral bone disease. 29. Deconditioning. 30. Gait dysfunction. 1. Acute decompensated mental status with acute encephalopathy and confusional state and lethargy. 2. Anemia. 3. Thrombocytopenia. 4. End-stage renal disease, hemodialysis dependent three times a week. 5. Hypokalemia. 6. Severe transaminitis with history of cirrhosis. 7. Hyperammonemia. 8. Indeterminate troponin. 9. 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 10. Microvascular ischemic disease of the brain. 11. Ethmoid and maxillary sinus mucosal thickening. 12. Questionable new onset atrial fibrillation. 13. Left axis deviation. 14. Right bundle-branch block. 15. Inferolateral ischemia. 16. Altered mental status. 17. Lactic acidosis. 18. Respiratory alkalosis. 19. Hepatic encephalopathy and toxic metabolic encephalopathy with underlying hepatic cirrhosis. 20. Hypertensive diabetic chronic kidney disease. 21. Secondary hyperparathyroidism. 22. [id number] mitral regurgitation. 23. Right ventricular dilatation. 24. Status post automatic implantable cardioverter defibrillator implant. 25. Morbid obesity. PLAN: At this time, the patient will be continued on the therapeutic intervention as per the MAR of today. We are awaiting Neurology followup and Psychiatry followup regarding the patient's neurological status and psychiatric status. The patient will be continued on all the therapeutic interventions as per the MAR. The patient will continue on hemodialysis as per Nephrology recommendations. Out of bed, physical therapy and occupational therapy has been ordered. The patient will be considered for discharge once the patient is off one-to-one and after cleared by Neurology and Psychiatry. So Psychiatry and Neurology followup is needed for further evaluation and clearance of the patient for discharge back to subacute rehab and [facility]dc. PROGNOSIS: Overall, the patient's prognosis is guarded to poor due to multiple complicated comorbidities and multiple complicated underlying medical condition. The patient's next of kin and the son and the niece have been explained about the overall patient's guarded to poor condition and prognosis during multiple hospitalization to [facility] and also at the [facility]dc. Dictated and electronically signed, not read. Jimy Simeon MD [facility]
[2018-07-31] MEDS: Levalbuterol 0.63 MG/3 ML Inhal Soln UD IH SCH ×4 (02:53→13:30)
--- NOTE | 2018-07-31 04:10 | PN ---
DATE: 07/30/2018 SUBJECTIVE: This patient was seen and evaluated earlier today. The patient was much more comfortable, alert. No complaints of any abdominal pain. PHYSICAL EXAMINATION: VITAL SIGNS: Temperature 97.2, BP 107/67, pulse 84, respirations 20, O2 saturation . HEENT: Atraumatic. Anicteric. NECK: Supple. HEART: S1, S2 regular. LUNGS: Bilateral air entry present. ABDOMEN: Soft. No tenderness. LABORATORY DATA: Hemoglobin 9.7, hematocrit 32.2, WBC 4.4, platelets 93, MCB 100.9. Total bilirubin of 1, AST is 63, and alkaline phosphatase 129. IMPRESSION AND PLAN: This is a 67-year-old patient with end-stage renal disease, admitted with change of mental status, hepatic encephalopathy, on Xifaxan and Enulose now. Tolerating the diet, becoming more alert. The patient is presently off the antibiotics. We will continue the lactulose and also Xifaxan. The patient is presently off the vancomycin and also Xifaxan. In view of the history of encephalopathy with the elevated ammonia level, it is reasonable to continue this patient on a longer term Xifaxan or lactulose for maintenance. Other problems include hypothyroidism, diabetes mellitus, coronary artery disease, chronic back pain. The patient did have hepatitis C antibody positive. Hepatitis C titer is pending and genotype pending. Thank you very much for allowing me to participate in the care of the patient. Edna Machado MD
[2018-07-31] MEDS: Levothyroxine 50 MCG TAB PO SCH (05:25)
[2018-07-31] MEDS: Insulin Human NPH 1 UNITS/0.01 ML SC SCH (08:49)
[2018-07-31] MEDS: Insulin Lispro (humaLOG) MEDIUM Coverage SC SCH (08:50)
[2018-07-31 09:03] VITALS: BP 104/55; PULSE 77
[2018-07-31] MEDS: Mupirocin 2% Ointment 15 GM TUBE TOP SCH (10:26)
[2018-07-31] MEDS: Ammonium Lactate 12% Cream (140 g) TOP SCH (10:26)
[2018-07-31] MEDS: Lidocaine 5% Patch TD SCH ×2 (10:27)
[2018-07-31] MEDS: Multivitamin Vitamin B Complex (Nephro-Vite) Tab PO SCH (10:27)
[2018-07-31] MEDS: Pantoprazole 40 mg EC Tab PO SCH (10:28)
[2018-07-31] MEDS: Thiamine 100 MG in Sodium Chloride 0.9% 50 ML IV SCH (10:28)
--- NOTE | 2018-07-31 12:11 | DS ---
FINAL PROGRESS NOTE AND DISCHARGE SUMMARY DATE: 07/31/2018 LOCATION: The patient is in room 363, bed 1. SUBJECTIVE: Overnight nurse's notes were reviewed. The patient had been episodically confused, disoriented, agitated, restless, requiring one-to-one. The patient has been complaining of back pain, has been requesting narcotics and refuses Ultram and Lidoderm patch. PHYSICAL EXAMINATION: VITAL SIGNS: T-max 97.2, heart rate 84, blood pressure 107/61, respirations 20, O2 sat 95%. HEENT: Head, normocephalic, atraumatic. Examination shows pinkish pale conjunctivae. Anicteric sclerae. No oropharyngeal lesion. NECK: No neck rigidity. CHEST: Examination showed median sternotomy surgical scar. Positive left upper chest AICD. LUNGS: Examination shows no audible crackle, rales or wheezing. CARDIOVASCULAR: S1, S2, irregular rhythm. Positive systolic murmur left sternal border, right second intercostal space, left second intercostal space. ABDOMEN: Soft. Positive bowel sounds. Obese. Unable to appreciate any hepatosplenomegaly. GENITALIA: Female. RECTAL: Examination is deferred. EXTREMITIES: Positive right upper extremity AV fistula, positive thrill. Lower extremity shows no pitting edema. No calf tenderness. No Homans' sign. NEUROLOGIC: The patient is alert, awake, responsive, is able to move upper and lower extremity to painful stimuli. The patient is confused and disoriented. Gait examination is not tested. VASCULAR: Palpable pulses of the upper extremity. Lower extremity shows decreased palpable pulses. NEUROLOGIC: Examination is limited. Gait examination is not tested. DIAGNOSTIC DATA: None from today are pending and diagnostic from 07/30/2018 were reviewed. Ammonia level was 16. The patient had chronic elevation of BUN and creatinine. FINAL IMPRESSION AND PLAN & DISCHARGE DIAGNOSES:: 1. Acute exacerbation of hepatic encephalopathy and toxic metabolic encephalopathy. 2. Delirium. 3. Confusional, disoriented state secondary to above. 4. End-stage renal disease, hemodialysis dependent. 5. Hepatic cirrhosis with positive hepatitis C. 6. Anemia, leukopenia, thrombocytopenia. 7. Insulin-requiring diabetes mellitus. 8. Hypertension. 9. Coronary artery disease, coronary artery bypass graft. 10. Right-sided diastolic congestive heart failure. 11. Status post automatic implantable cardioverter-defibrillator implant. 12. Thoracic and lumbar spine degenerative disk disease, foramen stenosis, spinal stenosis. 13. Gait dysfunction. 14. Deconditioning. 15. Hyperammonemia secondary to hepatic encephalopathy and hepatic cirrhosis. 16. Bilateral lower extremity peripheral vascular disease. 1. Acute exacerbation of hepatic encephalopathy and toxic metabolic encephalopathy. 2. Confusional state and disorientation, lull state. 3. Questionable behavioral disorder with episodic restlessness and agitated episode and aggressive behavior and verbally abusive patient. 4. Lumbar and thoracic spine pain. 5. Hepatic encephalopathy. 6. Hyperammonemia. 7. Hepatitis C and hepatic cirrhosis. 8. Possible delirium. 9. Narcotic seeking behavior. 10. History of narcotic and sedative and benzodiazepine overuse. 11. Hepatitis C secondary to cirrhosis. 12. Diabetic chronic kidney disease and hypertensive chronic kidney disease. 13. End-stage renal disease, hemodialysis dependent. 14. Anemia. 15. Secondary hyperparathyroidism. 16. Thrombocytopenia. 17. Pancytopenia, leukopenia, anemia, thrombocytopenia. 18. Hypokalemia and end-stage renal disease, dialysis patient. 19. Transaminitis. 20. Reactive hepatitis C antibody. 21. Multilevel thoracic spine degenerative joint disease and scoliosis. 22. Cardiomegaly. 23. 3.8 cm ascending aorta on a rhythm. 24. Pulmonary hypertension with dilated main pulmonary artery of 3.5 cm. 25. Multilevel lumbar spine degenerative disc disease and spinal stenosis and foramen stenosis. 26. Lumbar spine multilevel facet arthropathy and degenerative joint disease and disk space narrowing and vacuum disk phenomenon. 27. Splenomegaly with indeterminate hyperechoic splenic mass. 28. Dilated common bile duct. 29. Echogenic right renal parenchyma with medical renal disease. 30. Hepatic cirrhosis with nodular hepatic contour. 31. Peripheral arterial disease of the lower extremity with left iliac of occlusive disease and bilateral superficial femoral artery peripheral arterial disease and bilateral tibial disease. 32. Atrial fibrillation. 33. Left axis deviation. 34. Right bundle-branch block. 35. Inferolateral coronary ischemia. 36. Bilateral feet xerosis and right foot ulcer. 37. Hypokalemia. 39. Hyperlipidemia. 40. History of hypertension. 41. Hypothyroidism. 1. Acute alteration of mental status with acute toxic metabolic encephalopathy versus acute exacerbation of hepatic encephalopathy. 2. Episodic confusion, restlessness and aggressive behavior. 3. Hypertension. 4. Atrial fibrillation. 5. Normocytic anemia, thrombocytopenia. 6. Lymphopenia. 7. Monocytosis. 8. Lactic acidosis. 9. End-stage renal disease, hemodialysis dependent. 10. Transaminitis. 11. Hyperammonemia and hepatic encephalopathy. 12. Reactive hepatitis C antibody with hepatitis C antibody signal cutoff 21.5. 13. Thoracic spine scoliosis with degenerative joint disease. 14. Cardiomegaly. 15. A 3.8-cm ascending aortic aneurysm. 16. Pulmonary hypertension with dilated main pulmonary artery of 3.5 cm. 17. Degenerative joint disease of the lumbar spine. 18. Splenic hyperechogenic mass. 19. Splenomegaly. 20. Indeterminate hyperechoic splenic mass. 21. Dilated common bile duct. 22. Hepatic cirrhosis with nodular hepatic contour. 23. Echogenic renal parenchyma. 24. Bilateral lower extremity peripheral vascular disease with left iliac occlusive disease and bilateral superficial femoral artery occlusive disease and bilateral tibial disease. 25. Old lacunar infarct of the right caudate head. 26. Chronic microvascular skin disease of the brain with cerebral cortical atrophy of the brain. 27. Ethmoid and maxillary sinus mucosal thickening. 28. Atrial fibrillation. 29. Right bundle-branch block. 30. Left axis deviation. 31. Inferolateral coronary ischemia. 32. Deconditioning. 33. Gait dysfunction. 34. Episodic agitation and confusion and questionable behavioral disorder. 35. Acute delirium. 36. Coronary artery disease with coronary artery bypass graft. 37. Status post permanent pacemaker implant. 38. Hyperammonemia and hepatic encephalopathy. 39. Hypertensive diabetic chronic kidney disease. 40. Secondary hyperparathyroidism. 41. Moderate to severe mitral regurgitation with right ventricular dysfunction. 42. Bilateral xerosis of the feet. 43. Insulin-requiring diabetes mellitus. 44. Hyperlipidemia. 45. History of hypotension. 1. Acute alteration of mental status with acute toxic metabolic encephalopathy versus acute exacerbation of hepatic encephalopathy. 2. End-stage renal disease, hemodialysis dependent. 3. Possible new-onset atrial fibrillation. 4. Hypoxemia. 5. Right bundle-branch block. 6. Left anterior hemiblock and bifascicular block. 7. Lateral coronary ischemia. 8. Anemia. 9. Thrombocytopenia. 10. Hepatic cirrhosis, etiology undetermined. 11. Hypokalemia. 12. Transaminitis. 13. Hyperammonemia. 14. Indeterminate troponin. 15. Hypertensive diabetic chronic kidney disease. 16. Secondary hyperparathyroidism. 17. Mitral regurgitation. 18. Possible right-sided diastolic congestive heart failure with right ventricular dilatation. 19. 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 20. Microvascular ischemic disease of the brain. 21. Ethmoid maxillary sinus mucosal thickening. 22. Inferolateral ischemic changes. 23. Lactic acidosis. 24. Respiratory alkalosis. 25. Toxic metabolic encephalopathy. 26. History of narcotic-dependent pain syndrome and history of questionable narcotic abuse. 27. History of possible narcotic overdose in the past. 28. Degenerative joint disease and chronic kidney disease, mineral bone disease. 29. Deconditioning. 30. Gait dysfunction. 1. Acute decompensated mental status with acute encephalopathy and confusional state and lethargy. 2. Anemia. 3. Thrombocytopenia. 4. End-stage renal disease, hemodialysis dependent three times a week. 5. Hypokalemia. 6. Severe transaminitis with history of cirrhosis. 7. Hyperammonemia. 8. Indeterminate troponin. 9. 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 10. Microvascular ischemic disease of the brain. 11. Ethmoid and maxillary sinus mucosal thickening. 12. Questionable new onset atrial fibrillation. 13. Left axis deviation. 14. Right bundle-branch block. 15. Inferolateral ischemia. 16. Altered mental status. 17. Lactic acidosis. 18. Respiratory alkalosis. 19. Hepatic encephalopathy and toxic metabolic encephalopathy with underlying hepatic cirrhosis. 20. Hypertensive diabetic chronic kidney disease. 21. Secondary hyperparathyroidism. 22. [id number] mitral regurgitation. 23. Right ventricular dilatation. 24. Status post automatic implantable cardioverter defibrillator implant. 25. Morbid obesity. PLAN: 1. At this time, the patient is to be continued on above therapeutic intervention as per the MAR. 2. The patient's bone scan is pending. 3. The patient is still on one-to-one. The patient will be considered for discharge once the patient is off one-to-one and once the patient is cleared by all subspecialties for discharge. The patient's overall prognosis is guarded to poor. The patient has been ordered out of bed to chair, physical therapy, occupational therapy, ambulation therapy, gait training. The patient's further management will be dependent upon the patient's clinical condition, hemodynamic status and as per the patient response to therapeutic intervention, as per the patient's diagnostic test results and as per recommendation by all the physicians involved in the care of the patient. PATIENT REFUSED BONE SCAN PATIENT CLEARED BY SURGERY PATIENT TO BE DISCHARGED TO [facility] UNDER SERVICE. Dictated and electronically signed, not read. Jimy Simeon MD [facility] # [id number] JACINTA
--- NOTE | 2018-07-31 13:10 | CP.PCM.CON ---
History of Present Illness - History of Present Illness History of Present Illness: Surgery Consult note. Dr. Lawson. Nery Salamanca is a 67-year-old female with past medical history of CAD s/p CABG and 5 stent placements, ESRD on dialysis TTS, HTN, hypothyroidism, diabetes mellitus who was admitted for altered mental status. Surgery was consulted for evaluation of right mid back lipoma. Patient states that she has been having low back pain, radiates to the right flank which at times involves the site of the lipoma. Currently, she states that her pain is lower back and does not involve the location of the lipoma. She sates that the lipoma has been a chonic problem and she does not intend to undergo any surgical intervention. She denies any N/V/D. No F/C. No CP/SOB. PMHx: CAD s/p CABG and 5 stent, ESRD on HD (TTS), HTN, hypothyroidism, diabetes mellitus, hyperthyroidism PSHx: CABG Family Hx: Non-contributory Social: previous smoker and ETOH abuse. no illicit drugs. Allergies: PCN, shellfish, TCA Review of Systems - Review of Systems All systems: reviewed and no additional remarkable complaints except - Constitutional Constitutional: absent: Chills, Fever - EENT Eyes: absent: Change in Vision - Cardiovascular Cardiovascular: absent: Chest Pain, Dyspnea - Respiratory Respiratory: absent: Cough, Dyspnea, Chest Congestion - Gastrointestinal Gastrointestinal: absent: Abdominal Pain, Nausea, Vomiting - Musculoskeletal Musculoskeletal: Back Pain - Integumentary Integumentary: absent: Skin Pain, Swelling, Wounds Additional comments: mass on the back of the spine Past Patient History - Infectious Disease Hx of Infectious Diseases: None - Past Social History Smoking Status: Former Smoker Alcohol: None Drugs: Denies - CARDIAC Hx Cardiac Disorders: Yes Hx Hypertension: Yes - PULMONARY Hx Respiratory Disorders: No - NEUROLOGICAL Hx Neurological Disorder: No - HEENT Hx HEENT Problems: No - RENAL Hx Renal Failure: Yes (on dialysis) - ENDOCRINE/METABOLIC Hx Hypothyroidism: Yes - HEMATOLOGICAL/ONCOLOGICAL Hx Blood Disorders: No - INTEGUMENTARY Hx Dermatological Problems: No - MUSCULOSKELETAL/RHEUMATOLOGICAL Hx Musculoskeletal Disorders: Yes Hx Back Pain: Yes Hx Falls: Yes Hx Unsteady Gait: Yes (walker) - GASTROINTESTINAL Hx Gastrointestinal Disorders: No - GENITOURINARY/GYNECOLOGICAL Hx Genitourinary Disorders: No - PSYCHIATRIC Hx Psychophysiologic Disorder: No Hx Substance Use: No - SURGICAL HISTORY Hx Coronary Stent: Yes (5) Other/Comment: right av shunt placement. tonsillectomy - ANESTHESIA Hx Anesthesia: Yes Hx Anesthesia Reactions: No Hx Malignant Hyperthermia: No Meds Home Medications: Home Medication List Medication Instructions Recorded Confirmed Type Albumin Human 25% [Albumin Human 25 gm IV TTS PRN vial 07/31/18 Rx 25% (12.5 gm/50 ml)] Ammonium Lactate 12% [Lac-Hydrin 1 % TOP DAILY tube 07/31/18 Rx 12% Cream (140 g)] Aspirin [Aspirin Chewable] 81 mg PO DAILY chew 07/31/18 Rx Atorvastatin [Lipitor] 20 mg PO DAILY #30 tab 07/31/18 Rx Cinacalcet [Sensipar] 30 mg PO DIN tab 07/31/18 Rx Darbepoetin Glenn [Aranesp] 60 mcg IVP QWK vial 07/31/18 Rx DiphenhydrAMINE 1% [Benadryl 1 ea TOP Q6H PRN tube 07/31/18 Rx Maximum Strength 1%] Insulin Human NPH [Humulin N] 10 units SC ACB ml 07/31/18 Rx Insulin Human NPH [Humulin N] 10 units SC DAILY@1745 ml 07/31/18 Rx Lactulose [Enulose] 20 gm PO BID udc 07/31/18 Rx Levalbuterol [Xopenex] 0.63 mg IH [id number] neb 07/31/18 Rx Lidocaine 5% [Lidoderm] 1 ea TD DAILY patch 07/31/18 Rx Lidocaine 5% [Lidoderm] 1 ea TD DAILY patch 07/31/18 Rx Mupirocin 2% Ointment [Bactroban 1 % TOP BID tube 07/31/18 Rx Ointment] QUEtiapine [Seroquel] 12.5 mg PO HS PRN tab 07/31/18 Rx Sevelamer [Renagel] 800 mg PO TID tab 07/31/18 Rx traMADol [Ultram] 50 mg PO Q12H PRN #15 tab 07/31/18 Rx Allergies/Adverse Reactions: Allergies Allergy/AdvReac Type Severity Reaction Status Date / Time amitriptyline Allergy RASH Verified 07/25/18 14:26 Iodinated Contrast- Oral and Allergy RASH Verified 07/25/18 14:26 IV Dye Penicillins Allergy RASH Verified 07/25/18 14:26 shellfish derived Allergy RASH Verified 07/25/18 14:26 - Medications Medications: Current Medications Acetaminophen (Tylenol 325mg Tab) 650 mg PO Q6 PRN PRN Reason: TEMP>=99.5F Last Admin: 07/30/18 01:16 Dose: 650 mg Acetaminophen (Tylenol 650 Mg Supp) 650 mg RC Q6H PRN PRN Reason: TEMP>=99.5F Albumin Human (Albumin Human 25% (12.5 Gm/50 Ml)) 25 gm IV TTS PRN PRN Reason: Other Aspirin (Aspirin Chewable) 81 mg PO DAILY [facility] Last Admin: 07/31/18 10:26 Dose: 81 mg Atorvastatin Calcium (Lipitor) 80 mg PO HS [facility] Last Admin: 07/30/18 21:31 Dose: 80 mg Cinacalcet (Sensipar) 30 mg PO DIN [facility] Last Admin: 07/30/18 18:48 Dose: 30 mg Darbepoetin Glenn (Aranesp) 60 mcg IVP QWK [facility] Last Admin: 07/25/18 15:30 Dose: 60 mcg Dextrose (Dextrose 50% Inj) 0 ml IV STAT PRN; Protocol PRN Reason: Hypoglycemia Protocol Diphenhydramine HCl (Benadryl Maximum Strength 1%) 1 ea TOP Q6H PRN PRN Reason: Itching / Pruritus Last Admin: 07/30/18 11:20 Dose: 1 applic Dextrose (Dextrose 5% In Water 1000 Ml) 1,000 mls @ 0 mls/hr IV .Q0M PRN; Protocol PRN Reason: Hypoglycemia Protocol Thiamine HCl 100 mg/ Sodium (Chloride) 51 mls @ 153 mls/hr IV DAILY [facility] Last Admin: 07/31/18 10:28 Dose: 153 mls/hr Insulin Human Lispro (Humalog Med) 0 units SC AC [facility]; Protocol Last Admin: 07/31/18 08:50 Dose: 1 u Insulin Human NPH (Humulin N) 10 units SC ACB [facility] Last Admin: 07/31/18 08:49 Dose: 10 units Insulin Human NPH (Humulin N) 10 units SC DAILY@1745 [facility] Last Admin: 07/30/18 17:26 Dose: Not Given Lactic Acid (Lac-Hydrin 12% Cream (140 G)) 0 ea TOP DAILY [facility] Last Admin: 07/31/18 10:26 Dose: 1 applic Lactulose (Enulose) 20 gm PO BID [facility] Last Admin: 07/31/18 10:26 Dose: 20 gm Levalbuterol HCl (Xopenex) 0.63 mg IH [id number] [facility] Last Admin: 07/31/18 08:02 Dose: 0.63 mg Levothyroxine Sodium (Synthroid) 50 mcg PO 0600 [facility] Last Admin: 07/31/18 05:25 Dose: 50 mcg Lidocaine (Lidoderm) 1 ea TD DAILY [facility] Last Admin: 07/31/18 10:27 Dose: 1 ea Lidocaine (Lidoderm) 1 ea TD DAILY [facility] Last Admin: 07/31/18 10:27 Dose: 1 ea Metoprolol Tartrate (Lopressor) 25 mg PO BRKDIN [facility] Last Admin: 07/31/18 09:02 Dose: Not Given Midodrine (Proamatine) 10 mg PO TID [facility] Last Admin: 07/31/18 10:27 Dose: 10 mg Mupirocin (Bactroban Ointment) 0 gm TOP BID [facility] Last Admin: 07/31/18 10:26 Dose: 1 applic Ondansetron HCl (Zofran Inj) 4 mg IVP Q4H PRN PRN Reason: Nausea/Vomiting Pantoprazole Sodium (Protonix Ec Tab) 40 mg PO Q12 [facility] Last Admin: 07/31/18 10:28 Dose: 40 mg Quetiapine Fumarate (Seroquel) 12.5 mg PO HS PRN; Protocol PRN Reason: Agitation Last Admin: 07/30/18 21:31 Dose: 12.5 mg Sennosides (Senokot Tab) 17.2 mg PO HS [facility] Last Admin: 07/30/18 21:32 Dose: Not Given Sevelamer HCl (Renagel) 800 mg PO TID [facility] Last Admin: 07/31/18 10:28 Dose: 800 mg Tramadol HCl (Ultram) 50 mg PO Q12H PRN PRN Reason: Pain, moderate (4-7) Last Admin: 07/31/18 10:04 Dose: 50 mg Vitamin B Complex/Vit C/Folic Acid (Nephro-Jose Miguel) 1 tab PO DAILY [facility] Last Admin: 07/31/18 10:27 Dose: 1 tab Physical Exam - Constitutional Appears: Well, Non-toxic, No Acute Distress - Head Exam Head Exam: ATRAUMATIC, NORMAL INSPECTION, NORMOCEPHALIC - Eye Exam Eye Exam: EOMI, Normal appearance. absent: Scleral icterus - ENT Exam ENT Exam: Mucous Membranes Moist - Respiratory Exam Respiratory Exam: NORMAL BREATHING PATTERN. absent: Accessory Muscle Use, Respiratory Distress - Cardiovascular Exam Cardiovascular Exam: absent: JVD - Back Exam Additional comments: no rashes or erythema, Single mobile approx 2cm x 1cm mass in right paraspinal area at Mid thoracic back. There is no Tenderness or parathesias with palpation. - Neurological Exam Neurological exam: Alert, Oriented x3 - Skin Skin Exam: Dry, Intact, Normal Color, Warm Results - Vital Signs Recent Vital Signs: Last Vital Signs Temp 97.2 F L 07/30/18 18:00 Pulse 77 07/31/18 09:02 Resp 20 07/30/18 18:00 BP 104/55 L 07/31/18 09:02 Pulse Ox 95 07/30/18 18:00 - Labs Result Diagrams: 07/30/18 11:20 07/30/18 11:20 Labs: Laboratory Results - last 24 hr 07/30/18 07/30/18 07/31/18 16:08 21:14 07:18 POC Glucose (mg/dL) 166 H 205 H 161 H 07/31/18 11:42 POC Glucose (mg/dL) 237 H Assessment & Plan - Assessment and Plan (Free Text) Assessment: 67yo F with extensive PMHx. Surgery Consulted for right mid thoracic lipoma. Plan: - No indication for acute surgical intervention warranted at this time - Patient may follow up with Dr. Lawson in his office upon discharge for possible elective lipoma removal - Medical management as per Primary Further recs as per Dr. Renny Blount PGY2 surgery
--- NOTE | 2018-07-31 14:58 | PN ---
DATE: 07/31/2018 CARDIOLOGY FOLLOWUP SUBJECTIVE: The patient is without distress. PHYSICAL EXAMINATION: VITAL SIGNS: Blood pressure 104/55, heart rates in the 70s. NECK: Negative JVD. LUNGS: Without rales. HEART: Reveal S1 and S2. EXTREMITIES: Without edema. LABORATORY DATA: Hemoglobin is 9.7, BUN and creatinine are 90 and 4.8 with a glucose of 161. IMPRESSION: 1. Stable angina. 2. End-stage renal disease. 3. Coronary artery disease. 4. History of coronary artery bypass surgery. 5. Diabetes mellitus. 6. History of pacemaker placement. ASSESSMENT AND PLAN: Given these findings, the patient is hemodynamically stable. The patient is working with physical therapy later today. Chan Berman MD
--- NOTE | 2018-07-31 15:16 | CP.PCM.PN ---
Subjective - Date & Time of Evaluation Date of Evaluation: 07/31/18 Time of Evaluation: 15:15 - Subjective Subjective: Nephrology Consultation Note Assessment: stable AMS ? related to pain meds/sedative and or hepatic encephalopathy as ammonia elevated: IMPROVED Hep C + with likely cirrhosis pulmonary congestion, hypokalemia Diabetic chronic Kidney Disease (E11.22) Hypertensive Chronic Kidney Disease (I12.0) End stage renal disease (N18.6) dependence on hemodialysis (Z99.2) (TTS) via AVF Anemia (D64.9), Hyperphosphatemia (E83.39), Secondary Hyperparathyroidism (E21.1), HTN (I12.0) CAD s/p CABG obesity thrombocytopenia Lytic lesions ? underlying malignancy RV dysfunction, moderate to severe MR spinal stenosis Plan: Will plan for next dialysis as per TTS schedule. Continue with Nephrovite 1 tab/day. PRBC as needed for anemia. weekly ADAM with HD continue with phos binders as orally accepting, last Phos 3.6 maintain hemodynamic stable. resumed midodrine 10 mg TID. no on acei/arb as bp usually low. albumin prn with HD ordered Glycemic control, Dialysis consistent diet Further work up/management as per primary team Dose meds/antibiotics (if needed) for ESRD status. Avoid fleets enema/magnesium based laxatives. GI, ID Neuro and cardiology following decision for Hep C treatment per GI/ID Thanks for allowing me to participate in care of your patient. Will follow patient with you. Please call if any Qs. had d/w team Dr Amrit Malone Office: [phone] CC: AMS reason for consult: ESRD HPI:Pt is a 67 F with hx of ESRD on hemodialysis (TTS) via AVF , last dialysis Sat, chronic anemia, hyperphosphatemia, secondary hyperparathyroidism, Diabetes Mellitus, hypertension CAD s/p CABG, chronic back pain presented with complaints of AMS.Renal consult requested for ESRD management. [place] similar and recent [place] [facility] [place] which was attributed to pain meds ROS: c/o chronic back pain. AMS resolved. no SOB. she feels at baseline Physical Examination: General Appearance: in no acute respiratory distress, comfortable. well appearing Vitals reviewed and noted as below Head; Atraumatic, normocephalic ENT: no ulcers no thrush. Tongue is midline. Oropharynx: no rash or ulcers. Neck; supple no lymphadenopathy, no thyromegaly or bruit Lungs: Normal respiratory rate/effort. Breath sounds bilateral equal and clear anteriorly Heart: Normal rate. s1s2 normal. No rub or gallop. Extremities: no Rt edema. No varicose veins. has chronic left leg edema Neurological: Patient is more communicative . awake alert oriented today not confused Skin: Warm and dry. Normal turgor. No rash. Palpitation: Normal elasticity for age Abdomen: Abdomen is soft. Bowel sounds +. There is no abdominal tenderness, no guarding/rigidity or organomegaly Psych: limited insight. normal affect MSK: no joint tenderness or swelling. Digits and nails normal, no deformity : kidney or bladder not palpable Access: AVF Labs/imaging reviewed. Past medical history, past surgical history, family history, social history, allergy reviewed and noted as below Family Hx: no hx of CKD. Non contributory Objective - Vital Signs/Intake and Output Vital Signs (last 24 hours): Temp Pulse Resp BP Pulse Ox 97.2 F L 77 20 104/55 L 95 07/30/18 18:00 07/31/18 09:02 07/30/18 18:00 07/31/18 09:02 07/30/18 18:00 Intake and Output: 07/31/18 07/31/18 06:59 18:59 Intake Total 180 Output Total 1 Balance 179 - Medications Medications: Current Medications Acetaminophen (Tylenol 325mg Tab) 650 mg PO Q6 PRN PRN Reason: TEMP>=99.5F Last Admin: 07/30/18 01:16 Dose: 650 mg Acetaminophen (Tylenol 650 Mg Supp) 650 mg RC Q6H PRN PRN Reason: TEMP>=99.5F Albumin Human (Albumin Human 25% (12.5 Gm/50 Ml)) 25 gm IV TTS PRN PRN Reason: Other Aspirin (Aspirin Chewable) 81 mg PO DAILY [facility] Last Admin: 07/31/18 10:26 Dose: 81 mg Atorvastatin Calcium (Lipitor) 80 mg PO HS [facility] Last Admin: 07/30/18 21:31 Dose: 80 mg Cinacalcet (Sensipar) 30 mg PO DIN [facility] Last Admin: 07/30/18 18:48 Dose: 30 mg Darbepoetin Glenn (Aranesp) 60 mcg IVP QWK [facility] Last Admin: 07/25/18 15:30 Dose: 60 mcg Dextrose (Dextrose 50% Inj) 0 ml IV STAT PRN; Protocol PRN Reason: Hypoglycemia Protocol Diphenhydramine HCl (Benadryl Maximum Strength 1%) 1 ea TOP Q6H PRN PRN Reason: Itching / Pruritus Last Admin: 07/30/18 11:20 Dose: 1 applic Dextrose (Dextrose 5% In Water 1000 Ml) 1,000 mls @ 0 mls/hr IV .Q0M PRN; Protocol PRN Reason: Hypoglycemia Protocol Thiamine HCl 100 mg/ Sodium (Chloride) 51 mls @ 153 mls/hr IV DAILY [facility] Last Admin: 07/31/18 10:28 Dose: 153 mls/hr Insulin Human Lispro (Humalog Med) 0 units SC AC [facility]; Protocol Last Admin: 07/31/18 08:50 Dose: 1 u Insulin Human NPH (Humulin N) 10 units SC ACB RAISSA Last Admin: 07/31/18 08:49 Dose: 10 units Insulin Human NPH (Humulin N) 10 units SC DAILY@1745 [facility] Last Admin: 07/30/18 17:26 Dose: Not Given Lactic Acid (Lac-Hydrin 12% Cream (140 G)) 0 ea TOP DAILY [facility] Last Admin: 07/31/18 10:26 Dose: 1 applic Lactulose (Enulose) 20 gm PO BID [facility] Last Admin: 07/31/18 10:26 Dose: 20 gm Levalbuterol HCl (Xopenex) 0.63 mg IH Q7UEKER [facility] Last Admin: 07/31/18 13:30 Dose: Not Given Levothyroxine Sodium (Synthroid) 50 mcg PO 0600 [facility] Last Admin: 07/31/18 05:25 Dose: 50 mcg Lidocaine (Lidoderm) 1 ea TD DAILY RAISSA Last Admin: 07/31/18 10:27 Dose: 1 ea Lidocaine (Lidoderm) 1 ea TD DAILY [facility] Last Admin: 07/31/18 10:27 Dose: 1 ea Metoprolol Tartrate (Lopressor) 25 mg PO BRKDIN [facility] Last Admin: 07/31/18 09:02 Dose: Not Given Midodrine (Proamatine) 10 mg PO TID [facility] Last Admin: 07/31/18 10:27 Dose: 10 mg Mupirocin (Bactroban Ointment) 0 gm TOP BID [facility] Last Admin: 07/31/18 10:26 Dose: 1 applic Ondansetron HCl (Zofran Inj) 4 mg IVP Q4H PRN PRN Reason: Nausea/Vomiting Pantoprazole Sodium (Protonix Ec Tab) 40 mg PO Q12 [facility] Last Admin: 07/31/18 10:28 Dose: 40 mg Quetiapine Fumarate (Seroquel) 12.5 mg PO HS PRN; Protocol PRN Reason: Agitation Last Admin: 07/30/18 21:31 Dose: 12.5 mg Sennosides (Senokot Tab) 17.2 mg PO HS [facility] Last Admin: 07/30/18 21:32 Dose: Not Given Sevelamer HCl (Renagel) 800 mg PO TID [facility] Last Admin: 07/31/18 10:28 Dose: 800 mg Tramadol HCl (Ultram) 50 mg PO Q12H PRN PRN Reason: Pain, moderate (4-7) Last Admin: 07/31/18 10:04 Dose: 50 mg Vitamin B Complex/Vit C/Folic Acid (Nephro-Jose Miguel) 1 tab PO DAILY [facility] Last Admin: 07/31/18 10:27 Dose: 1 tab - Labs Labs: 07/30/18 11:20 07/30/18 11:20 PT 14.6 SECONDS (9.4-12.5) H 07/25/18 09:40 INR 1.29 07/25/18 09:40 APTT 28.2 Seconds (26.9-38.3) 07/25/18 09:40
--- NOTE | 2018-07-31 23:31 | PN ---
DATE: 07/31/2018 SUBJECTIVE: The patient was seen earlier this morning in room 63, bed 1. She is awake and alert. She is afebrile. PHYSICAL EXAMINATION: VITAL SIGNS: Temperature is 97, blood pressure is 104/50, respiratory rate of 16. HEENT: Unremarkable. NECK: Supple. LUNGS: Decreased breath sounds. HEART: Normal, S1, S2. ABDOMEN: Soft. LABORATORY DATA: She has a white count of 4.4, hemoglobin 9, platelets of 93. Chemistries are noted with a BUN of 19, creatinine of 4.8. Serology is noted. Microbiology is improved. ASSESSMENT AND PLAN: This is a 67-year-old female with past medical history of coronary artery disease, hypothyroidism, diabetes, cirrhosis of liver, pacemaker, chronic renal failure on hemodialysis with minimal change in mental status, probably medication-induced, currently off antibiotics, afebrile. The patient is at risk for developing nosocomial infections. Bill Whitt MD
--- NOTE | 2018-08-01 09:13 | CP.PCM.PCO ---
Physician Communication Note - Physician Communication Note Physician Communication Note: pt was d/c, needs to be f/u by psychiatrist at [facility] within 48hrs.
== END 2018-07-31 17:10 | DRG 441 ==
LOC: ED 08:58 → ERH 11:31 → ICU 13:48 → 3RNO 07-28 22:21
PROVIDERS: ADMIT Internal Medicine; ATTEND Internal Medicine
PROC: 5A1D70Z Performance of Urinary Filtration, Intermittent, Less than 6 Hours Per Day (ICD-10-PCS; principal; 2018-07-25)
PROC: 5A1D70Z Performance of Urinary Filtration, Intermittent, Less than 6 Hours Per Day (ICD-10-PCS; 2018-07-27)
PROC: 5A1D70Z Performance of Urinary Filtration, Intermittent, Less than 6 Hours Per Day (ICD-10-PCS; 2018-07-29)
DX: K72.90 Hepatic failure, unspecified without coma (principal); G92 Toxic encephalopathy; N18.6 End stage renal disease; I12.0 Hypertensive chronic kidney disease with stage 5 chronic kidney disease or end stage renal disease; N25.81 Secondary hyperparathyroidism of renal origin; F03.91 Unspecified dementia, unspecified severity, with behavioral disturbance; E87.4 Mixed disorder of acid-base balance; F05 Delirium due to known physiological condition; I45.2 Bifascicular block; D61.818 Other pancytopenia; K74.60 Unspecified cirrhosis of liver; E03.9 Hypothyroidism, unspecified; E11.51 Type 2 diabetes mellitus with diabetic peripheral angiopathy without gangrene; E11.22 Type 2 diabetes mellitus with diabetic chronic kidney disease; D63.1 Anemia in chronic kidney disease; E83.39 Other disorders of phosphorus metabolism; B19.20 Unspecified viral hepatitis C without hepatic coma; R16.1 Splenomegaly, not elsewhere classified; K83.8 Other specified diseases of biliary tract; E87.6 Hypokalemia; I08.1 Rheumatic disorders of both mitral and tricuspid valves; I27.20 Pulmonary hypertension, unspecified; I45.10 Unspecified right bundle-branch block; I48.91 Unspecified atrial fibrillation; I71.2 Thoracic aortic aneurysm, without rupture; E11.621 Type 2 diabetes mellitus with foot ulcer; L97.519 Non-pressure chronic ulcer of other part of right foot with unspecified severity; M48.061 Spinal stenosis, lumbar region without neurogenic claudication; M51.36 Other intervertebral disc degeneration, lumbar region; E78.5 Hyperlipidemia, unspecified; E66.9 Obesity, unspecified; D17.1 Benign lipomatous neoplasm of skin and subcutaneous tissue of trunk; M41.34 Thoracogenic scoliosis, thoracic region; I25.118 Atherosclerotic heart disease of native coronary artery with other forms of angina pectoris; Z99.2 Dependence on renal dialysis; Z87.891 Personal history of nicotine dependence; Z95.1 Presence of aortocoronary bypass graft; Z95.5 Presence of coronary angioplasty implant and graft; Z88.0 Allergy status to penicillin; Z79.4 Long term (current) use of insulin; Z95.810 Presence of automatic (implantable) cardiac defibrillator; I25.2 Old myocardial infarction; Z79.82 Long term (current) use of aspirin; Z86.73 Personal history of transient ischemic attack (TIA), and cerebral infarction without residual deficits; Z95.0 Presence of cardiac pacemaker; Z68.29 Body mass index [BMI] 29.0-29.9, adult; Z78.1 Physical restraint status

== ENCOUNTER 2018-09-09 20:48 | Observation (INO) | payer MEDICARE, BC, MEDICAID ==
[2018-09-09 20:48] VITALS: BMI 29.9
--- NOTE | 2018-09-09 21:33 | ED PDOC ---
Arrival/HPI - General Chief Complaint: Shortness Of Breath Time Seen by Provider: 09/09/18 21:17 Historian: Patient - History of Present Illness Narrative History of Present Illness (Text): 09/09/18 21:28 67 year old female, whose past medical history includes Pacemaker, CAD s/p CABG and 5 stents, ESRD on HD (Tuesday, , Tuesday), and [facility] resident, presents to the emergency department complaining of bilateral leg swelling and weakness that began today. Patient reports that she missed her dialysis treatment today. She reports she recently had a [place] done [place] [facility] [place]. Patient denies any fever, chills, chest pain, shortness of breath, nausea, vomiting, diarrhea, urinary symptoms, bowel/urine incontinence, back pain, dakr or bloody stool, vaginal d/c, neck pain, headache, dizziness, or any other complaints. PMD: Dr. Anai Moon Time/Duration: Other (today) Symptom Onset: Gradual Symptom Course: Unchanged Activities at Onset: Light Past Medical History - Provider Review Nursing Documentation Reviewed: Yes - Infectious Disease Hx of Infectious Diseases: None - Cardiac Hx Cardiac Disorders: Yes Hx Hypertension: Yes - Pulmonary Hx Respiratory Disorders: No - Neurological Hx Neurological Disorder: No - HEENT Hx HEENT Disorder: No - Renal Hx Dialysis: Yes (T-T-S) Hx Renal Failure: Yes (on dialysis) - Endocrine/Metabolic Hx Hypothyroidism: Yes - Hematological/Oncological Hx Blood Disorders: No - Integumentary Hx Dermatological Disorder: No - Musculoskeletal/Rheumatological Hx Musculoskeletal Disorders: Yes Hx Back Pain: Yes Hx Falls: Yes Hx Unsteady Gait: Yes (walker) - Gastrointestinal Hx Gastrointestinal Disorders: No - Genitourinary/Gynecological Hx Genitourinary Disorders: No - Psychiatric Hx Psychophysiologic Disorder: No Hx Substance Use: No - Surgical History Hx Coronary Stent: Yes (5) Other/Comment: right av shunt placement. tonsillectomy - Anesthesia Hx Anesthesia: Yes Hx Anesthesia Reactions: No Hx Malignant Hyperthermia: No Family/Social History - Physician Review Nursing Documentation Reviewed: Yes Family/Social History: No Known Family HX Smoking Status: Former Smoker Hx Alcohol Use: No Hx Substance Use: No Allergies/Home Meds Allergies/Adverse Reactions: Allergies amitriptyline Allergy (Verified 09/09/18 20:58) RASH Iodinated Contrast- Oral and IV Dye Allergy (Verified 09/09/18 20:58) RASH Penicillins Allergy (Verified 09/09/18 20:58) RASH shellfish derived Allergy (Verified 09/09/18 20:58) RASH Home Medications: Home Meds Medication Instructions Recorded Confirmed Amino Acids/Protein Hydrolys 30 ml PO BID 07/25/18 09/09/18 [Prosource No Carb Liquid Pkt] Calamine/Zinc Oxide [Calamine 120 applic TOP Q8 PRN 07/25/18 09/09/18 Lotion] Insulin Lispro [humALOG] 1 unit SC ACHS 07/25/18 09/09/18 Levothyroxine Sodium [Unithroid] 75 mcg PO DAILY 07/25/18 09/09/18 Mupirocin 2% Cream [Bactroban 1 applic EXT QSHIFT 07/25/18 09/09/18 Cream] Pantoprazole [Protonix EC Tab] 40 mg PO DAILY 07/25/18 09/09/18 Review of Systems - Physician Review All systems were reviewed & negative as marked: Yes - Review of Systems Constitutional: absent: Fevers, Other (chills) Respiratory: absent: SOB Cardiovascular: Edema. absent: Chest Pain Gastrointestinal: absent: Diarrhea, Nausea, Vomiting Genitourinary Female: absent: Dysuria, Frequency, Hematuria Musculoskeletal: absent: Back Pain, Neck Pain Neurological: Other (weakness). absent: Headache, Dizziness Physical Exam Vital Signs Reviewed: Yes Vital Signs Temp Pulse Resp BP Pulse Ox 09/09/18 21:11 98.2 F 97 H 18 106/77 99 Temperature: Afebrile Blood Pressure: Normal Pulse: Regular Respiratory Rate: Normal Appearance: Positive for: Well-Appearing, Non-Toxic, Comfortable Pain Distress: None Mental Status: Positive for: Alert and Oriented X 3 - Systems Exam Head: Present: Atraumatic, Normocephalic Pupils: Present: PERRL Extroacular Muscles: Present: EOMI Conjunctiva: Present: Normal Mouth: Present: Moist Mucous Membranes Pharnyx: Present: Normal. No: ERYTHEMA, EXUDATE Nose (Internal): Present: Normal Inspection, No Active Bleeding Neck: Present: Normal Range of Motion. No: Meningeal Signs, MIDLINE TENDERNESS Respiratory/Chest: Present: Clear to Auscultation, Good Air Exchange. No: Respiratory Distress, Accessory Muscle Use Cardiovascular: Present: Regular Rate and Rhythm, Normal S1, S2. No: Murmurs Abdomen: No: Tenderness, Distention, Peritoneal Signs Back: Present: Normal Inspection. No: CVA Tenderness, Midline Tenderness Upper Extremity: Present: NORMAL PULSES, Neurovascularly Intact, Other (right upper extremity fistula. Good trill). No: Cyanosis, Edema Lower Extremity: Present: Edema (bilateral 2+ edema), NORMAL PULSES, Neurovascularly Intact, Capillary Refill < 2 s. No: CALF TENDERNESS Neurological: Present: GCS=15, CN II-XII Intact, Speech Normal, Motor Func Grossly Intact, Normal Sensory Function Skin: Present: Warm, Dry, Normal Color. No: Rashes Psychiatric: Present: Alert, Oriented x 3, Normal Insight, Normal Concentration Medical Decision Making ED Course and Treatment: 09/09/18 21:29 Impression: 67 year old female presents complaining of bilateral LE swelling and weakness that began today after missing her dialysis treatment. No fever, chills or night sweats. She denies any loss of bowel / bladder function or decreased sensation in her legs. She notes that she has been compliant with her medications. No headache, abdominal pain, gi or gu issues or dark or bloody stool. Differential Diagnosis included but are not limited to: Missed Dialysis Plan: -- Labs -- EKG -- Chest X-ray -- Duplex LE US -- Reassess and disposition Prior Visits: Notes and results from previous visits were reviewed. Progress Notes: 09/09/18 22:18 EKG shows Paced at 90 BPM. Interpreted by me. CXR Impression: As read by me, moderate venous congestion bilaterally. No consolidation. 09/09/18 22:55 Pt in NAD, pt remains CP free and without appreciable sob on exam (no wheezes or crackles) appreciate consult w/ Dr. Barriga: to admit to his service: endorsed pending US and labs - Lab Interpretations I have reviewed the lab results: Yes - RAD Interpretation Radiology Orders: 09/09/18 21:23 CHEST PORTABLE [RAD] Stat DUPLEX LOWER EXTRM VEIN BILAT [US] Stat - Scribe Statement The provider has reviewed the documentation as recorded by the Scribe Justina Silva Provider Scribe Attestation: All medical record entries made by the Scribe were at my direction and personally dictated by me. I have reviewed the chart and agree that the record accurately reflects my personal performance of the history, physical exam, medical decision making, and the department course for this patient. I have also personally directed, reviewed, and agree with the discharge instructions and disposition. Disposition/Present on Arrival - Present on Arrival Any Indicators Present on Arrival: No History of DVT/PE: No History of Uncontrolled Diabetes: No Urinary Catheter: No History of Decub. Ulcer: No History Surgical Site Infection Following: None - Disposition Have Diagnosis and Disposition been Completed?: Yes Diagnosis: Missed dialysis Disposition: HOSPITALIZED Disposition Time: 22:57 Patient Problems: Current Active Problems Problem Status Onset Missed dialysis Acute Condition: STABLE
[2018-09-09 22:22] LABS: BASO # 0.04 K/mm3 (0.0-2.0); BASO % 0.4 % (0.0-3.0); EOS # 0.1 (0.0-0.7); EOS % 1.3 % (1.5-5.0); HEMOGLOBIN 9.2 g/dL (12.0-16.0); LYMPH # 0.6 (1.2-3.4); LYMPH % 6.9 % (22.0-35.0); MEAN CELL VOLUME 95.4 fl (80.0-105.0); MEAN CORPUSCULAR HEMOGLOBIN 30.4 pg (25.0-35.0); MEAN CORPUSCULAR HGB CONC 31.8 g/dl (31.0-37.0); MEAN PLATELET VOLUME 10.2 fl (7.0-11.0); MONO # 1.7 (0.1-0.6); MONO % 18.9 % (1.0-6.0); RBC 3.03 10^6/uL (3.5-6.1); RED CELL DISTRIBUTION WIDTH 18.3 % (11.5-14.5)
[2018-09-09 22:23] LABS: ALBUMIN 3.5 g/dL (3.0-4.8); CALCIUM 7.9 mg/dL (8.4-10.5)
--- NOTE | 2018-09-10 00:03 | CP.PCM.HP ---
<Mars Riggs - Last Filed: 09/10/18 00:41> History of Present Illness - History of Present Illness History of Present Illness: PGY-1 Medicine H&P for Dr. Barriga CC: Lower leg swelling HPI: Patient is a 67 year old female with a past medical history of CAD (s/p CABG and 5 stents), ESRD on HD (Tuesday, , Tuesday), atrial fibrillation w/ pacemaker, hypertension, hypothyroidism, and diabetes mellitus, presenting with bilateral leg swelling and weakness that began 2 days ago. Patient reports that she missed her dialysis treatment today. She reports she recently had a [place] done [place] [facility] [place] and has been feeling tired ever since that she decided not to go to her dialysis session. Patient denies any fever, chills, chest pain, shortness of breath, nausea, vomiting, diarrhea, urinary symptoms, bowel/urine incontinence, back pain, neck pain, headache, dizziness, or any other complaints. 12-point ROS reviewed and negative, except mentioned in HPI. PMHx: CAD s/p CABG and 5 stents, ESRD on HD (TTS), atrial fibrillation w/ pacemaker, hypertension, hypothyroidism, diabetes mellitus PSHx: CABG (Triple bypass in 2007), 5 X cardiac stents, left toe amputations Allergies: Amitryptyline, Iodinated contrast, Dye, PCNs Social Hx: Former smoker with 43 pack years history, quit 12 years ago. Denies alcohol or drug use. 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 Family Hx: Mother had heart disease and DM-2. Father had prostate cancer. Medications: see JUL PMD: Dr. Anai Moon Nephro: Dr. Diallo Cardio: Dr. Olivia Ann Present on Admission - Present on Admission Any Indicators Present on Admission: No History of DVT/PE: No History of Uncontrolled Diabetes: No Urinary Catheter: No Decubitus Ulcer Present: No Past Patient History - Infectious Disease Hx of Infectious Diseases: None - Past Social History Smoking Status: Former Smoker - CARDIAC Hx Cardiac Disorders: Yes Hx Hypertension: Yes - PULMONARY Hx Respiratory Disorders: No - NEUROLOGICAL Hx Neurological Disorder: No - HEENT Hx HEENT Problems: No - RENAL Hx Dialysis: Yes (T-T-S) Hx Renal Failure: Yes (on dialysis) - ENDOCRINE/METABOLIC Hx Hypothyroidism: Yes - HEMATOLOGICAL/ONCOLOGICAL Hx Blood Disorders: No - INTEGUMENTARY Hx Dermatological Problems: No - MUSCULOSKELETAL/RHEUMATOLOGICAL Hx Musculoskeletal Disorders: Yes Hx Back Pain: Yes Hx Falls: Yes Hx Unsteady Gait: Yes (walker) - GASTROINTESTINAL Hx Gastrointestinal Disorders: No - GENITOURINARY/GYNECOLOGICAL Hx Genitourinary Disorders: No - PSYCHIATRIC Hx Psychophysiologic Disorder: No Hx Substance Use: No - SURGICAL HISTORY Hx Coronary Stent: Yes (5) Other/Comment: right av shunt placement. tonsillectomy - ANESTHESIA Hx Anesthesia: Yes Hx Anesthesia Reactions: No Hx Malignant Hyperthermia: No Meds Allergies/Adverse Reactions: Allergies Allergy/AdvReac Type Severity Reaction Status Date / Time amitriptyline Allergy RASH Verified 09/09/18 20:58 Iodinated Contrast- Oral and Allergy RASH Verified 09/09/18 20:58 IV Dye Penicillins Allergy RASH Verified 09/09/18 20:58 shellfish derived Allergy RASH Verified 09/09/18 20:58 Physical Exam - Constitutional Appears: Well, Non-toxic, No Acute Distress - Head Exam Head Exam: ATRAUMATIC, NORMAL INSPECTION - Eye Exam Eye Exam: EOMI, Normal appearance Pupil Exam: NORMAL ACCOMODATION - ENT Exam ENT Exam: Mucous Membranes Moist - Neck Exam Neck exam: Positive for: Normal Inspection - Respiratory Exam Respiratory Exam: Clear to Auscultation Bilateral, NORMAL BREATHING PATTERN. absent: Rales, Rhonchi, Wheezes, Respiratory Distress - Cardiovascular Exam Cardiovascular Exam: Irregular Rhythm, +S1, +S2. absent: Bradycardia, Tachycardia, Gallop, Rubs, Systolic Murmur - GI/Abdominal Exam GI & Abdominal Exam: Normal Bowel Sounds, Soft. absent: Distended, Firm, Guarding, Tenderness - Extremities Exam Extremities exam: Positive for: calf tenderness, pedal edema Additional comments: +2 pitting edema in bilateral leg that she states is chronic. Right leg tender to palpation. - Back Exam Back exam: tenderness. absent: CVA tenderness (L), CVA tenderness (R) Additional comments: Right lower background check coordinator to palpation, she states it is chronic - Neurological Exam Neurological exam: Alert, CN II-XII Intact, Oriented x3 - Psychiatric Exam Psychiatric exam: Normal Affect, Normal Mood - Skin Skin Exam: Dry, Intact, Normal Color, Warm Results - Vital Signs Recent Vital Signs: Last Vital Signs Temp 98.2 F 09/09/18 21:11 Pulse 82 04/27/19 23:55 Resp 18 09/09/18 23:55 BP 98/56 L 09/09/18 23:55 Pulse Ox 94 L 09/09/18 23:55 - Labs Result Diagrams: 09/09/18 22:00 09/09/18 22:00 Labs: Laboratory Results - last 24 hr 09/09/18 09/09/18 09/09/18 22:00 22:00 22:00 WBC 9.0 D RBC 3.03 L Hgb 9.2 L Hct 28.9 L MCV 95.4 D MCH 30.4 MCHC 31.8 RDW 18.3 H Plt Count 208 MPV 10.2 Neut % (Auto) 72.5 H Lymph % (Auto) 6.9 L Gulf % (Auto) 18.9 H Eos % (Auto) 1.3 L Baso % (Auto) 0.4 Lymph # (Auto) 0.6 L Gulf # (Auto) 1.7 H Eos # (Auto) 0.1 Baso # (Auto) 0.04 Absolute Neuts (auto) 6.52 H Sodium 143 Potassium 3.5 L Chloride 99 Carbon Dioxide 27 Anion Gap 20 BUN 53 H Creatinine 8.0 H* D Est GFR ( Amer) 6 Est GFR (Non-Af Amer) 5 Random Glucose 179 H Calcium 7.9 L Magnesium 2.3 H Total Bilirubin 1.2 AST 28 ALT 17 Alkaline Phosphatase 203 H D Total Protein 7.0 Albumin 3.5 Globulin 3.5 Albumin/Globulin Ratio 1.0 L Blood Type AB POSITIVE Antibody Screen Negative BBK History Checked Patient has bt Assessment & Plan - Assessment and Plan (Free Text) Assessment: Patient is a 67 year old female with a past medical history of CAD s/p CABG and 5 stents, ESRD on HD (Tuesday, , Tuesday), hypertension, hypothyroidism, and diabetes mellitus, presenting with bilateral leg swelling and weakness. Patient missed her scheduled dialysis session today. Plan: ESRD on HD (, , Tue) - Nephrology consulted, Dr. [place] - Plan for HD tomorrow - Replete electrolytes as needed - Continue home medications Renagel, Lactulose Bilateral lower extremity edema - Likely 2/2 to missed HD session - LE venous duplex: no DVT's (prelim read) - Nephro Consultation: Dr. [place] Atrial fibrillation - EKG: Atrial fibrillation @ 90bpm, RBBB - CXR: pending read - Continue home Lopressor 25mg PO BID -with holding parameters - Aspirin 81mg QD Hypotension - Continue home Midodrine 10mg PO TID - Home Lopressor started with holding parameters Anemia of CKD - Patient's baseline Hgb ~9.0 - Continue to monitor CKD Mineral Disorder - Continue with Renagel Hypothyroidism - Continue Levothyroxine 75mg PO QD Hyperlipidemia - Continue Lipitor 20mg PO HS DM - ISS-low - Accuchecks ACHS - Hypoglycemia protocol Chronic lower back pain - Continue Lidoderm path QD Prophylaxis: - DVT: Heparin 5000u SC Q8 - GI: Protonix 40mg PO QD Patient seen and case discussed with attending, Dr. Barriga. Mars Riggs, PGY-1 <Krishna Barriga - Last Filed: 09/10/18 01:11> Results - Vital Signs Recent Vital Signs: Last Vital Signs Temp 98.2 F 09/09/18 21:11 Pulse 82 09/09/18 23:55 Resp 18 09/09/18 23:55 BP 98/56 L 09/09/18 23:55 Pulse Ox 94 L 09/09/18 23:55 - Labs Result Diagrams: 09/09/18 22:00 09/09/18 22:00 Labs: Laboratory Results - last 24 hr 09/09/18 09/09/18 09/09/18 22:00 22:00 22:00 WBC 9.0 D RBC 3.03 L Hgb 9.2 L Hct 28.9 L MCV 95.4 D MCH 30.4 MCHC 31.8 RDW 18.3 H Plt Count 208 MPV 10.2 Neut % (Auto) 72.5 H Lymph % (Auto) 6.9 L Gulf % (Auto) 18.9 H Eos % (Auto) 1.3 L Baso % (Auto) 0.4 Lymph # (Auto) 0.6 L Gulf # (Auto) 1.7 H Eos # (Auto) 0.1 Baso # (Auto) 0.04 Absolute Neuts (auto) 6.52 H Sodium 143 Potassium 3.5 L Chloride 99 Carbon Dioxide 27 Anion Gap 20 BUN 53 H Creatinine 8.0 H* D Est GFR ( Amer) 6 Est GFR (Non-Af Amer) 5 Random Glucose 179 H Calcium 7.9 L Magnesium 2.3 H Total Bilirubin 1.2 AST 28 ALT 17 Alkaline Phosphatase 203 H D Total Protein 7.0 Albumin 3.5 Globulin 3.5 Albumin/Globulin Ratio 1.0 L Blood Type AB POSITIVE Antibody Screen Negative BBK History Checked Patient has bt Attending/Attestation - Attestation I have personally seen and examined this patient.: Yes I have fully participated in the care of the patient.: Yes I have reviewed all pertinent clinical information: Yes
[2018-09-10] MEDS ORDERED: Dextrose 50% SYRINGE Inj (50 ml) IV PRN (00:04)
[2018-09-10 01:38] VITALS: RESP 20
[2018-09-10] MEDS: Pantoprazole 40 mg EC Tab PO SCH (05:56)
[2018-09-10] MEDS: Levothyroxine 75 MCG TAB PO SCH (05:57)
[2018-09-10] MEDS: Insulin Reg-LOW-Coverage SC SCH ×4 (08:25→21:45)
[2018-09-10 09:20] LABS: BASO # 0.05 K/mm3 (0.0-2.0); BASO % 0.6 % (0.0-3.0); EOS # 0.2 (0.0-0.7); EOS % 1.9 % (1.5-5.0); HEMOGLOBIN 9.4 g/dL (12.0-16.0); LYMPH # 0.8 (1.2-3.4); LYMPH % 9.6 % (22.0-35.0); MEAN CELL VOLUME 95.9 fl (80.0-105.0); MEAN CORPUSCULAR HEMOGLOBIN 29.8 pg (25.0-35.0); MEAN CORPUSCULAR HGB CONC 31.1 g/dl (31.0-37.0); MEAN PLATELET VOLUME 10.2 fl (7.0-11.0); MONO # 1.5 (0.1-0.6); MONO % 18.1 % (1.0-6.0); RBC 3.15 10^6/uL (3.5-6.1); RED CELL DISTRIBUTION WIDTH 18.3 % (11.5-14.5); WHITE BLOOD COUNT 8.5 10^3/uL (4.5-11.0)
[2018-09-10] MEDS: Lidocaine 5% Patch TD SCH (09:36)
[2018-09-10 09:54] LABS: ALBUMIN 3.8 g/dL (3.0-4.8); CALCIUM 7.9 mg/dL (8.4-10.5)
--- NOTE | 2018-09-10 10:06 | RAD ---
Date of service: 09/09/2018 HISTORY: missed dialysis COMPARISON: Chest radiograph dated 07/25/2018. TECHNIQUE: 1 view obtained. FINDINGS: LUNGS: Pulmonary vascular congestion. No focal consolidation. PLEURA: No significant pleural effusion identified, no pneumothorax apparent. CARDIOVASCULAR: Left subclavian access to lead pacemaker redemonstrated. Prior sternotomy with sternal wires and surgical clips in place. Aortic atherosclerotic calcifications. Cardiomediastinal silhouette stably enlarged. OSSEOUS STRUCTURES: Unchanged. VISUALIZED UPPER ABDOMEN: Right upper quadrant surgical clips. OTHER FINDINGS: None. IMPRESSION: Pulmonary vascular congestion. No focal consolidation or pleural effusion.
--- NOTE | 2018-09-10 10:11 | CARD ---
APPROVED REPORT Date of service: 09/09/2018 EKG Measurement Heart [id number] <Conclusion> Atrial fibrillation with premature ventricular or aberrantly conducted complexes Right bundle branch block Left anterior fascicular block Bifascicular block Possible Lateral infarct, age undetermined Abnormal ECG
--- NOTE | 2018-09-10 17:09 | CP.PCM.PN ---
Subjective - Date & Time of Evaluation Date of Evaluation: 09/10/18 Time of Evaluation: 17:08 - Subjective Subjective: renal note patient in observation for missed hd lytes ok bp ok volume stable hd usual schedule is tts will dialyse on tuesday for missed session Objective - Vital Signs/Intake and Output Vital Signs (last 24 hours): Temp Pulse Resp BP Pulse Ox 97.8 F 82 20 92/55 L 95 09/10/18 06:00 09/10/18 14:00 09/10/18 06:00 09/10/18 08:47 09/10/18 10:00 Intake and Output: 09/10/18 09/10/18 06:59 18:59 Intake Total 0 Output Total 0 Balance 0 - Medications Medications: Current Medications Acetaminophen (Tylenol 325mg Tab) 650 mg PO Q6H PRN PRN Reason: Pain, Mild (1-3) Last Admin: 09/10/18 16:07 Dose: 650 mg Aspirin (Ecotrin) 81 mg PO DAILY RAISSA Last Admin: 09/10/18 10:14 Dose: 81 mg Atorvastatin Calcium (Lipitor) 20 mg PO DAILY [facility] Last Admin: 09/10/18 09:35 Dose: 20 mg Dextrose (Dextrose 50% Inj) 0 ml IV STAT PRN; Protocol PRN Reason: Hypoglycemia Protocol Heparin Sodium (Porcine) (Heparin) 5,000 units SC Q8 RAISSA; Protocol Last Admin: 09/10/18 14:41 Dose: 5,000 units Dextrose (Dextrose 5% In Water 1000 Ml) 1,000 mls @ 0 mls/hr IV .Q0M PRN; Protocol PRN Reason: Hypoglycemia Protocol Insulin Human Regular (Humulin R Low) 0 units SC ACHS RAISSA; Protocol Last Admin: 09/10/18 16:14 Dose: Not Given Lactulose (Enulose) 20 gm PO BID [facility] Last Admin: 09/10/18 09:35 Dose: 20 gm Levothyroxine Sodium (Synthroid) 75 mcg PO 0600 RAISSA Last Admin: 09/10/18 05:57 Dose: 75 mcg Lidocaine (Lidoderm) 1 ea TD DAILY RAISSA Last Admin: 09/10/18 09:36 Dose: 1 ea Metoprolol Tartrate (Lopressor) 25 mg PO BRKDIN [facility] Last Admin: 09/10/18 08:47 Dose: Not Given Midodrine (Proamatine) 10 mg PO TID [facility] Last Admin: 09/10/18 14:41 Dose: 10 mg Pantoprazole Sodium (Protonix Ec Tab) 40 mg PO 0600 [facility] Last Admin: 09/10/18 05:56 Dose: 40 mg Sevelamer HCl (Renagel) 800 mg PO TID [facility] Last Admin: 09/10/18 14:41 Dose: 800 mg - Labs Labs: 09/10/18 09:00 09/10/18 09:00
[2018-09-10 19:20] VITALS: O2SAT 99
[2018-09-11] MEDS: Levothyroxine 75 MCG TAB PO SCH (05:20)
[2018-09-11] MEDS: Pantoprazole 40 mg EC Tab PO SCH (05:20)
[2018-09-11 06:49] LABS: BASO # 0.03 K/mm3 (0.0-2.0); BASO % 0.4 % (0.0-3.0); EOS # 0.1 (0.0-0.7); EOS % 1.3 % (1.5-5.0); HEMOGLOBIN 8.8 g/dL (12.0-16.0); LYMPH # 0.8 (1.2-3.4); LYMPH % 10.5 % (22.0-35.0); MEAN CELL VOLUME 95.6 fl (80.0-105.0); MEAN CORPUSCULAR HEMOGLOBIN 29.7 pg (25.0-35.0); MEAN CORPUSCULAR HGB CONC 31.1 g/dl (31.0-37.0); MEAN PLATELET VOLUME 10.4 fl (7.0-11.0); MONO # 1.5 (0.1-0.6); MONO % 19.1 % (1.0-6.0); RBC 2.96 10^6/uL (3.5-6.1); RED CELL DISTRIBUTION WIDTH 18.5 % (11.5-14.5); WHITE BLOOD COUNT 7.7 10^3/uL (4.5-11.0)
[2018-09-11 07:03] LABS: ALB/GLOB RATIO 0.9 (1.1-1.8); ALBUMIN 3.4 g/dL (3.0-4.8); CALCIUM 7.7 mg/dL (8.4-10.5)
[2018-09-11 08:27] VITALS: BP 84/52; TEMP 99.3
[2018-09-11] MEDS: Insulin Reg-LOW-Coverage SC SCH ×4 (08:30→22:26)
[2018-09-11] MEDS: Lidocaine 5% Patch TD SCH (09:20)
--- NOTE | 2018-09-11 09:39 | US ---
HISTORY: Leg pain and swelling. Evaluate for DVT PHYSICIAN(S): Chan Hernández MD. TECHNIQUE: Duplex sonography and color-flow Doppler with graded compression were used to evaluate the deep venous systems of both lower extremities. The exam is limited by edema FINDINGS: The visualized deep venous systems of both lower extremities are sonographically normal and compressible. Normal wave forms and augmentation are seen. There is no sonographic evidence for deep venous thrombosis in the visualized segments of both lower extremities. There are bilateral inguinal lymph nodes, measuring up to 3 cm. IMPRESSION: No sonographic evidence for deep venous thrombosis in the visualized segments of both lower extremities.
[2018-09-11] MEDS ORDERED: Albumin Human 25% (25 gm/100 ml) IV PRN (11:09)
[2018-09-11 11:45] VITALS: PULSE 69
--- NOTE | 2018-09-11 14:58 | CP.PCM.PCO ---
Physician Communication Note - Physician Communication Note Physician Communication Note: Pt. seen, no complaints, for DC home today after dialysis per PMD.
[2018-09-11] MEDS ORDERED: Darbepoetin Alfa 60 mcg/ml Inj IVP STA (16:45)
--- NOTE | 2018-09-11 18:51 | CP.PCM.DIS ---
<NandoBrian - Last Filed: 09/11/18 18:45> Provider - Provider Date of Admission: 09/09/18 23:01 Attending physician: Karol Mckeon MD Consults: 09/09/18 23:59 Nephrology Consult Routine Comment: Consulting Provider: Thor Diallo Consulting Physician: Thor Diallo Reason for Consult: Missed Dialysis 09/10/18 01:37 Diabetic Education Referral Routine Comment: Physician Instructions: Reason For Exam: uncontrolled dm Nursing Referral for Wound Care Routine Comment: Physician Instructions: Reason For Exam: mobility impaired Transition In Care/Readmission Reduction Routine Comment: Physician Instructions: Reason For Exam: [facility] readmiss 09/10/18 22:01 Nursing Referral for Wound Care Routine Comment: Physician Instructions: Reason For Exam: prevention Time Spent in preparation of Discharge (in minutes): 35 Hospital Course - Lab Results Lab Results: Most Recent Lab Values WBC 7.7 10^3/uL (4.5-11.0) 09/11/18 06:25 RBC 2.96 10^6/uL (3.5-6.1) L 09/11/18 06:25 Hgb 8.8 g/dL (12.0-16.0) L 09/11/18 06:25 Hct 28.3 % (36.0-48.0) L 09/11/18 06:25 MCV 95.6 fl (80.0-105.0) 09/11/18 06:25 MCH 29.7 pg (25.0-35.0) 09/11/18 06:25 MCHC 31.1 g/dl (31.0-37.0) 09/11/18 06:25 RDW 18.5 % (11.5-14.5) H 09/11/18 06:25 Plt Count 197 10^3/uL (120.0-450.0) 09/11/18 06:25 MPV 10.4 fl (7.0-11.0) 09/11/18 06:25 Neut % (Auto) 68.7 % (50.0-68.0) H 09/11/18 06:25 Lymph % (Auto) 10.5 % (22.0-35.0) L 09/11/18 06:25 [place] % (Auto) 19.1 % (1.0-6.0) H 09/11/18 06:25 Eos % (Auto) 1.3 % (1.5-5.0) L 09/11/18 06:25 Baso % (Auto) 0.4 % (0.0-3.0) 09/11/18 06:25 Lymph # (Auto) 0.8 (1.2-3.4) L 09/11/18 06:25 [place] # (Auto) 1.5 (0.1-0.6) H 09/11/18 06:25 Eos # (Auto) 0.1 (0.0-0.7) 09/11/18 06:25 Baso # (Auto) 0.03 K/mm3 (0.0-2.0) 09/11/18 06:25 Absolute Neuts (auto) 5.32 (1.4-6.5) 09/11/18 06:25 Sodium 144 mmol/L (132-148) 09/11/18 06:25 Potassium 3.9 mmol/L (3.6-5.0) 09/11/18 06:25 Chloride 101 mmol/L (98-107) 09/11/18 06:25 Carbon Dioxide 28 mmol/L (21-33) 09/11/18 06:25 Anion Gap 19 (10-20) 09/11/18 06:25 BUN 58 mg/dL (7-21) H 09/11/18 06:25 Creatinine 9.2 mg/dl (0.7-1.2) H* 09/11/18 06:25 Est GFR ( Amer) 5 09/11/18 06:25 Est GFR (Non-Af Amer) 4 09/11/18 06:25 POC Glucose (mg/dL) 122 mg/dL (65-110) H 09/11/18 11:06 Random Glucose 99 mg/dL (70-110) 09/11/18 06:25 Calcium 7.7 mg/dL (8.4-10.5) L 09/11/18 06:25 Phosphorus 3.7 mg/dL (2.5-4.5) 09/11/18 06:25 Magnesium 2.4 mg/dL (1.7-2.2) H 09/11/18 06:25 Total Bilirubin 1.2 mg/dL (0.2-1.3) 09/11/18 06:25 AST 28 U/L (14-36) 09/11/18 06:25 ALT 12 U/L (7-56) 09/11/18 06:25 Alkaline Phosphatase 182 U/L (38-126) H 09/11/18 06:25 Total Protein 7.0 g/dL (5.8-8.3) 09/11/18 06:25 Albumin 3.4 g/dL (3.0-4.8) 09/11/18 06:25 Globulin 3.6 gm/dL 09/11/18 06:25 Albumin/Globulin Ratio 0.9 (1.1-1.8) L 09/11/18 06:25 Blood Type AB POSITIVE 09/09/18 22:00 Antibody Screen Negative 09/09/18 22:00 BBK History Checked Patient has bt 09/09/18 22:00 - Hospital Course Hospital Course: Brian Collier, PGY1 Discharge Summary for Dr. Pelaez Patient is a 67 year old female with a past medical history of CAD (s/p CABG and 5 stents), ESRD on HD (Tuesday, , Tuesday), atrial fibrillation w/ pacemaker, hypertension, hypothyroidism, and diabetes mellitus, who presented wi bilateral leg swelling and weakness that began 2 days ago. Patient reports that she missed her dialysis treatment. She reports she recently had a colonoscopy done at [facility] – [place], [place] and was feeling tired ever since, and she decided not to go to her dialysis session. Lower extremity venous doppler was negative for DVT. CXR showed some pulmonary vascular congestion but no consolidation or infiltrate. Patient admitted for lower extremity swelling 2/2 missed hemodialysis session. Nephro was placed on consult for dialysis. She has a right arm fistula in place. Patient tolerated HD well. She does have some hypotension however her baseline is low and she is on midodrine at home for BP support. Upon reviewing all labs, vitals, and imaging, patient is hemodynamically stable for discharge to home. She was educated on the importance of keeping up with her dialysis treatments. Patient verbalized understanding. She will follow up with her PMD and wet cleaner machine as outpatient. She will continue to resume her regular HD sessions. Discharge Exam - Head Exam Head Exam: ATRAUMATIC, NORMAL INSPECTION - Eye Exam Eye Exam: EOMI, Normal appearance - ENT Exam ENT Exam: Mucous Membranes Moist - Neck Exam Neck exam: Normal Inspection - Respiratory Exam Respiratory Exam: Clear to PA & Lateral. absent: Accessory Muscle Use, Chest Wall Tenderness, Rales, Rhonchi, Wheezes, Respiratory Distress - Cardiovascular Exam Cardiovascular Exam: RRR, +S1, +S2 - GI/Abdominal Exam GI & Abdominal Exam: Normal Bowel Sounds, Soft. absent: Firm, Guarding, Rigid - Extremities Exam Extremities exam: normal capillary refill, pedal pulses present Additional comments: +1 pitting edema LE bilateral. - Back Exam Back exam: NORMAL INSPECTION - Neurological Exam Neurological exam: Alert, CN II-XII Intact, Oriented x3 - Psychiatric Exam Psychiatric exam: Normal Affect, Normal Mood - Skin Skin Exam: Dry, Intact, Normal Color, Warm Discharge Plan - Follow Up Plan Condition: STABLE Disposition: HOME/ ROUTINE Instructions: Hemodialysis (DC) Additional Instructions: - Please resume your home medications as prescribed. - Please follow up with your Primary Care Doctor (Dr. Moon) within 3-4 days of discharge. - Please resume your normal hemodialysis schedule. It is important that you do not miss your dialysis schedule. - Please follow up with your Scratch Finisher (Dr. Diallo) within 1 week of discharge. - Please return to the nearest emergency department if your symptoms worsen or reoccur. Referrals: Thor Diallo MD [Staff Provider] - Anai Moon MD [Staff Provider] - <Layla Pelaez - Last Filed: 09/13/18 16:21> Provider - Provider Date of Admission: 09/09/18 23:01 Attending physician: Karol Mckeon MD Consults: 09/09/18 23:59 Nephrology Consult Routine Comment: Consulting Provider: Thor Diallo Consulting Physician: Thor Diallo Reason for Consult: Missed Dialysis 09/10/18 01:37 Diabetic Education Referral Routine Comment: Physician Instructions: Reason For Exam: uncontrolled dm Nursing Referral for Wound Care Routine Comment: Physician Instructions: Reason For Exam: mobility impaired Transition In Care/Readmission Reduction Routine Comment: Physician Instructions: Reason For Exam: [facility] readmiss 09/10/18 22:01 Nursing Referral for Wound Care Routine Comment: Physician Instructions: Reason For Exam: prevention Hospital Course - Lab Results Lab Results: Most Recent Lab Values WBC 7.7 10^3/uL (4.5-11.0) 09/11/18 06:25 RBC 2.96 10^6/uL (3.5-6.1) L 09/11/18 06:25 Hgb 8.8 g/dL (12.0-16.0) L 09/11/18 06:25 Hct 28.3 % (36.0-48.0) L 09/11/18 06:25 MCV 95.6 fl (80.0-105.0) 09/11/18 06:25 MCH 29.7 pg (25.0-35.0) 09/11/18 06:25 MCHC 31.1 g/dl (31.0-37.0) 09/11/18 06:25 RDW 18.5 % (11.5-14.5) H 09/11/18 06:25 Plt Count 197 10^3/uL (120.0-450.0) 09/11/18 06:25 MPV 10.4 fl (7.0-11.0) 09/11/18 06:25 Neut % (Auto) 68.7 % (50.0-68.0) H 09/11/18 06:25 Lymph % (Auto) 10.5 % (22.0-35.0) L 09/11/18 06:25 [place] % (Auto) 19.1 % (1.0-6.0) H 09/11/18 06:25 Eos % (Auto) 1.3 % (1.5-5.0) L 09/11/18 06:25 Baso % (Auto) 0.4 % (0.0-3.0) 09/11/18 06:25 Lymph # (Auto) 0.8 (1.2-3.4) L 09/11/18 06:25 [place] # (Auto) 1.5 (0.1-0.6) H 09/11/18 06:25 Eos # (Auto) 0.1 (0.0-0.7) 09/11/18 06:25 Baso # (Auto) 0.03 K/mm3 (0.0-2.0) 09/11/18 06:25 Absolute Neuts (auto) 5.32 (1.4-6.5) 09/11/18 06:25 Sodium 144 mmol/L (132-148) 09/11/18 06:25 Potassium 3.9 mmol/L (3.6-5.0) 09/11/18 06:25 Chloride 101 mmol/L (98-107) 09/11/18 06:25 Carbon Dioxide 28 mmol/L (21-33) 09/11/18 06:25 Anion Gap 19 (10-20) 09/11/18 06:25 BUN 58 mg/dL (7-21) H 09/11/18 06:25 Creatinine 9.2 mg/dl (0.7-1.2) H* 09/11/18 06:25 Est GFR ( Amer) 5 09/11/18 06:25 Est GFR (Non-Af Amer) 4 09/11/18 06:25 POC Glucose (mg/dL) 166 mg/dL (65-110) H 09/11/18 21:06 Random Glucose 99 mg/dL (70-110) 09/11/18 06:25 Calcium 7.7 mg/dL (8.4-10.5) L 09/11/18 06:25 Phosphorus 3.7 mg/dL (2.5-4.5) 09/11/18 06:25 Magnesium 2.4 mg/dL (1.7-2.2) H 09/11/18 06:25 Total Bilirubin 1.2 mg/dL (0.2-1.3) 09/11/18 06:25 AST 28 U/L (14-36) 09/11/18 06:25 ALT 12 U/L (7-56) 09/11/18 06:25 Alkaline Phosphatase 182 U/L (38-126) H 09/11/18 06:25 Total Protein 7.0 g/dL (5.8-8.3) 09/11/18 06:25 Albumin 3.4 g/dL (3.0-4.8) 09/11/18 06:25 Globulin 3.6 gm/dL 09/11/18 06:25 Albumin/Globulin Ratio 0.9 (1.1-1.8) L 09/11/18 06:25 Blood Type AB POSITIVE 09/09/18 22:00 Antibody Screen Negative 09/09/18 22:00 BBK History Checked Patient has bt 09/09/18 22:00 Attending/Attestation - Attestation I have personally seen and examined this patient.: Yes I have fully participated in the care of the patient.: Yes I have reviewed all pertinent clinical information, including history, physical exam and plan: Yes Notes (Text): 09/13/18 16:19 Medical record note made by the resident after discussion with my direction and input after the patient was personally seen and examined by me. I have reviewed the chart and agree that the record accurately reflects by personal performance of the history, physical exam, data review, and medical decision-making, in the course for the patient. I have also personally directed the plan of care.
== END 2018-09-11 23:34 | disposition home or self-care (01) ==
LOC: ED 20:48 → ERH 23:01 → 3RNO 09-10 00:49
PROVIDERS: ADMIT Hospitalist; ATTEND Internal Medicine
DX: I12.0 Hypertensive chronic kidney disease with stage 5 chronic kidney disease or end stage renal disease (principal); N18.6 End stage renal disease; Z91.15 Patient's noncompliance with renal dialysis; E11.22 Type 2 diabetes mellitus with diabetic chronic kidney disease; I25.10 Atherosclerotic heart disease of native coronary artery without angina pectoris; I48.91 Unspecified atrial fibrillation; E03.9 Hypothyroidism, unspecified; Z95.1 Presence of aortocoronary bypass graft; Z95.5 Presence of coronary angioplasty implant and graft; Z99.2 Dependence on renal dialysis; Z95.0 Presence of cardiac pacemaker; Z87.891 Personal history of nicotine dependence; Z79.4 Long term (current) use of insulin; Z79.890 Hormone replacement therapy; Z80.42 Family history of malignant neoplasm of prostate; Z82.49 Family history of ischemic heart disease and other diseases of the circulatory system; Z83.3 Family history of diabetes mellitus
CPT/HCPCS: 36415; 71045; 80053; 82948; 83735; 84100; 85025; 86850; 86900; 93005; 93970; 96372; 99285; G0257; G0378; J1644